=== PATIENT | male | born 1945 | race Caucasian/White ===

== ENCOUNTER → 2017-01-12 | Outpatient (CLI) | payer BC ==
[~2017-01-12] MED LIST: ACET-1138 PO; ASPEC81 PO; BUME2TAB3 PO; CARV12.52 PO; CLB200 PO; METO2.5T PO; MULT-506 PO; OXYSR10 PO; POTA20TA16 PO; PRLSR20 PO; PROB1TAB16 PO; RXC5 PO; SNK PO; SPIR25TA PO
[2017-01-12 12:43] LABS: BASO % 0.5 %; BASO ABS # 0.04 K/uL (0-0.2); COMPLETE YES; EOS % 6.2 %; HEMATOCRIT 35.9 % (42-52); IG% 0.2 %; LYMPH % 29.1 %; LYMPH ABS # 2.52 K/uL (1.2-3.4); MEAN CELL VOLUME 78.4 fL (80-100); MEAN CORPUSCULAR HEMOGLOBIN 23.1 pg (25-34); MEAN CORPUSCULAR HGB CONC 29.5 g/dl (32-36); MEAN PLATELET VOLUME 9.9 fL (7.4-10.4); MONO % 12.5 %; NEUT % 51.5 %; PLATELET COUNT 310 K/uL (130-400); RED BLOOD COUNT 4.58 M/uL (4.7-6.1); WHITE BLOOD COUNT 8.67 K/uL (4.8-10.8)
[2017-01-12 13:06] LABS: FERRITIN 6.9 ng/ml (8.0-388.0)
--- NOTE | 2017-01-16 13:51 | CODING QUERY MEDICAL NECESSITY ---
SUPPORTING DIAGNOSIS NEEDED A supporting diagnosis is required for the test/procedure performed on this patient in order for us to be reimbursed by the patient's insurance. Please provide a supporting diagnosis for the following test/procedure listed below next to the test name along with your signature. *If there is no additional diagnosis for this patient that would support the following test/procedure please document that below next to the test/procedure. Test(s)/Procedure(s) that require a supporting diagnosis: * VIT B-12 LEVEL DIAGNOSIS: * FOLATE LEVEL DIAGNOSIS: * DOS: 01/12/17 Provider Signature: Date: Thank you Elda Mckoy [facility] Information Management Once completed, please kindly fax back to [phone] For questions please call [phone]
== END | disposition home or self-care (01) ==
LOC: C.LABSPEC 12:17
PROVIDERS: ATTEND Internal Medicine
DX: D50.9 Iron deficiency anemia, unspecified (principal)

== ENCOUNTER → 2017-01-17 | Outpatient (CLI) | payer BC ==
[~2017-01-17] MED LIST changes: +BENZ100C7 PO; +BMX1 PO; +BUME1TAB PO; +DEXT30TA7 PO; +FERR324T PO; +FLUO20CA36 PO; +GUAISYP8 PO; +LPT/20 PO; +LVQ750 PO; +PRED5PAK3 PO; +SYMIN INH
== END | disposition home or self-care (01) ==
LOC: C.LABSPEC 15:03
PROVIDERS: ATTEND Internal Medicine
DX: Z12.11 Encounter for screening for malignant neoplasm of colon (principal)

== ENCOUNTER → 2017-02-23 | Outpatient (CLI) | payer BC ==
--- NOTE | 2017-02-23 15:19 | DIAGNOSTIC IMAGING REPORT ---
CHEST 2 VIEWS ROUTINE CLINICAL HISTORY: COUGH dyspnea COMPARISON STUDY: 01/07/2016 FINDINGS: The bones soft tissues and hemidiaphragms are normal. The cardiomediastinal silhouette is normal. The lungs are clear. The pulmonary vasculature is normal. IMPRESSION: Negative chest. Electronically signed by: Russell Tsai M.D. 02/23/2017 3:18 PM Dictated Date/Time: 02/23/2017 3:17 PM
== END | disposition home or self-care (01) ==
LOC: C.RAD 15:01
PROVIDERS: ATTEND Internal Medicine
DX: J40 Bronchitis, not specified as acute or chronic (principal)

== ENCOUNTER → 2017-03-01 | Outpatient (CLI) | payer BC ==
[2017-03-01 13:33] LABS: HEMATOCRIT 44.4 % (42-52); MEAN CELL VOLUME 87.7 fL (80-100); MEAN CORPUSCULAR HEMOGLOBIN 26.3 pg (25-34); MEAN PLATELET VOLUME 10.4 fL (7.4-10.4); PLATELET COUNT 270 K/uL (130-400); RED BLOOD COUNT 5.06 M/uL (4.7-6.1); WHITE BLOOD COUNT 9.06 K/uL (4.8-10.8)
== END | disposition home or self-care (01) ==
LOC: C.LABSPEC 12:24
PROVIDERS: ATTEND Internal Medicine
DX: D64.9 Anemia, unspecified (principal)

== ENCOUNTER → 2017-05-31 | Outpatient (CLI) | payer BC ==
[~2017-05-31] MED LIST changes: -BENZ100C7 PO; -BMX1 PO; -BUME1TAB PO; -DEXT30TA7 PO; -FERR324T PO; -FLUO20CA36 PO; -GUAISYP8 PO; -LPT/20 PO; -LVQ750 PO; -PRED5PAK3 PO; -SYMIN INH
[2017-05-31 13:14] LABS: BASO % 0.6 %; BASO ABS # 0.05 K/uL (0-0.2); COMPLETE YES; EOS % 3.5 %; HEMATOCRIT 47.7 % (42-52); IG% 0.4 %; LYMPH % 30.8 %; LYMPH ABS # 2.63 K/uL (1.2-3.4); MEAN CELL VOLUME 92.4 fL (80-100); MEAN CORPUSCULAR HEMOGLOBIN 31.2 pg (25-34); MEAN CORPUSCULAR HGB CONC 33.8 g/dl (32-36); MONO % 10.6 %; NEUT % 54.1 %; PLATELET COUNT 245 K/uL (130-400); RED BLOOD COUNT 5.16 M/uL (4.7-6.1); WHITE BLOOD COUNT 8.53 K/uL (4.8-10.8)
[2017-05-31 13:26] LABS: ALT/SGPT 31 U/L (12-78); AST/SGOT 18 U/L (15-37); BLOOD UREA NITROGEN 19 mg/dl (7-18); BUN/CREATININE RATIO 11.9 (10-20); CALCIUM 10.3 mg/dl (8.5-10.1); CARBON DIOXIDE 31 mmol/L (21-32); CHLORIDE 104 mmol/L (98-107); CHOLESTEROL 259 mg/dl (0-200); GLUCOSE 117 mg/dl (70-99); POTASSIUM 4.1 mmol/L (3.5-5.1); SODIUM 139 mmol/L (136-145)
[2017-05-31 13:32] LABS: ALB/GLOB RATIO 0.9 (0.9-2); ALKALINE PHOSPHATASE 86 U/L (45-117); CHOLESTEROL/HDL RATIO 5.2; FERRITIN 29.8 ng/ml (8.0-388.0); HDL CHOLESTEROL 50 mg/dl; PROSTATE SPECIFIC ANTIGEN 0.988 ng/ml (0.000-4.000); TRIGLYCERIDES 241 mg/dl (0-150); VERY LOW DENSITY LIPOPROT CALC 48 mg/dl
[2017-05-31 13:46] LABS: ESTIMATED AVERAGE GLUCOSE 128 mg/dl; HA1C FLAG Normal (Normal)
--- NOTE | 2017-06-07 09:24 | CODING QUERY MEDICAL NECESSITY ---
SUPPORTING DIAGNOSIS NEEDED Dr. Shania Castro, A supporting diagnosis is required for the test/procedure performed on this patient in order for us to be reimbursed by the patient's insurance. Please provide a supporting diagnosis for the following test/procedure listed below next to the test name along with your signature. *If there is no additional diagnosis for this patient that would support the following test/procedure please document that below next to the test/procedure. Test(s)/Procedure(s) that require a supporting diagnosis: * [id number] PSA DIAGNOSIS: DATE OF SERVICE: 05/31/17 Provider Signature: Date: Thank you Kodi Schrader [facility] Information Management Once completed, please kindly fax back to [phone] For questions please call [phone]
== END | disposition home or self-care (01) ==
LOC: C.LABSPEC 12:10
PROVIDERS: ATTEND Internal Medicine
DX: R73.9 Hyperglycemia, unspecified (principal); I10 Essential (primary) hypertension; R78.5 Finding of other psychotropic drug in blood; D50.9 Iron deficiency anemia, unspecified; R30.0 Dysuria

== ENCOUNTER → 2017-07-19 | Outpatient (CLI) | payer BC ==
[2017-07-19 12:58] LABS: BASO % 0.5 %; BASO ABS # 0.05 K/uL (0-0.2); COMPLETE YES; EOS % 4.7 %; HEMATOCRIT 46.2 % (42-52); IG% 0.2 %; LYMPH % 31.7 %; LYMPH ABS # 2.89 K/uL (1.2-3.4); MEAN CORPUSCULAR HEMOGLOBIN 30.2 pg (25-34); MEAN CORPUSCULAR HGB CONC 32.5 g/dl (32-36); MONO % 11.6 %; NEUT % 51.3 %; PLATELET COUNT 226 K/uL (130-400); RED BLOOD COUNT 4.97 M/uL (4.7-6.1); WHITE BLOOD COUNT 9.12 K/uL (4.8-10.8)
[2017-07-19 13:13] LABS: ALT/SGPT 30 U/L (12-78); AST/SGOT 21 U/L (15-37); BLOOD UREA NITROGEN 12 mg/dl (7-18); BUN/CREATININE RATIO 10.3 (10-20); CALCIUM 10.1 mg/dl (8.5-10.1); CARBON DIOXIDE 27 mmol/L (21-32); CHLORIDE 104 mmol/L (98-107); CHOLESTEROL 142 mg/dl (0-200); GLUCOSE 106 mg/dl (70-99); POTASSIUM 4.6 mmol/L (3.5-5.1); SODIUM 138 mmol/L (136-145); TRIGLYCERIDES 149 mg/dl (0-150); VERY LOW DENSITY LIPOPROT CALC 30 mg/dl
[2017-07-19 13:16] LABS: ALKALINE PHOSPHATASE 81 U/L (45-117); CHOLESTEROL/HDL RATIO 2.5; HDL CHOLESTEROL 56 mg/dl
== END ==
LOC: C.LABSPEC 12:27
PROVIDERS: ATTEND Internal Medicine
DX: D64.9 Anemia, unspecified (principal); E78.5 Hyperlipidemia, unspecified; R73.9 Hyperglycemia, unspecified; I10 Essential (primary) hypertension

== ENCOUNTER 2017-08-23 15:16 | Inpatient (IN) | payer BC, OTHER ==
[~2017-08-23] VITALS: Ht 177.8 cm; Wt 130.9 kg
[2017-08-23] MEDS ORDERED: ALBUT/IPRATROP 3MG/0.5MG NEB 3 ML VIAL INH STA ×2 (15:36→17:04)
[2017-08-23] MEDS ORDERED: LACTATED RINGER'S 1000ML 1,000 ML IV ONE (15:45)
[2017-08-23] MEDS ORDERED: DEXT30TA7 PO (16:03)
[2017-08-23] MEDS ORDERED: BMX1 PO (16:03)
[2017-08-23] MEDS ORDERED: FERR324T PO (16:03)
[2017-08-23] MEDS ORDERED: BUME1TAB PO (16:03)
[2017-08-23] MEDS ORDERED: LPT/20 PO (16:03)
[2017-08-23] MEDS ORDERED: FLUO20CA36 PO (16:03)
[2017-08-23 16:14] LABS: URINE APPEARANCE CLEAR (CLEAR); URINE BILIRUBIN NEG (NEG); URINE COLOR DK YELLOW; URINE NITRITE NEG (NEG); URINE SPECIFIC GRAVITY 1.021 (1.000-1.030); UROBILINOGEN NEG (NEG)
[2017-08-23] MEDS ORDERED: GUAISYP8 PO (16:14)
--- NOTE | 2017-08-23 16:17 | DIAGNOSTIC IMAGING REPORT ---
CHEST ONE VIEW PORTABLE HISTORY: 72 years-old Male EVALUATE RESPIRATORY DISTRESS.DYSPNEA acute respiratory distress COMPARISON: Chest radiograph 02/23/2017 TECHNIQUE: Portable upright AP view of the chest FINDINGS: Cardiac silhouette is mildly enlarged, unchanged. Atherosclerosis of the aorta. No pneumothorax or pleural effusion. Subsegmental left basilar opacities are noted which appear linear. Bones are grossly intact. There are degenerative changes of the shoulders. IMPRESSION: Subsegmental left basilar opacities suggest atelectasis. No acute cardiopulmonary process. The above report was generated using voice recognition software. It may contain grammatical, syntax or spelling errors. Electronically signed by: Rigo Ritchie M.D. 08/23/2017 4:15 PM Dictated Date/Time: 08/23/2017 4:14 PM
[2017-08-23 16:25] LABS: MANUAL MICROSCOPIC REQUIRED? NO; REVIEW REQ? YES
[2017-08-23 16:39] LABS: URINE MUCUS PRESENT (NONE PRSENT)
[2017-08-23 16:42] LABS: BASO % 0.2 %; BASO ABS # 0.03 K/uL (0-0.2); COMPLETE YES; EOS % 1.7 %; IG% 0.5 %; LYMPH % 16.9 %; LYMPH ABS # 2.52 K/uL (1.2-3.4); MEAN CELL VOLUME 93.6 fL (80-100); MEAN CORPUSCULAR HEMOGLOBIN 30.6 pg (25-34); MEAN CORPUSCULAR HGB CONC 32.7 g/dl (32-36); MEAN PLATELET VOLUME 10.2 fL (7.4-10.4); MONO % 19.1 %; NEUT % 61.6 %; PLATELET COUNT 195 K/uL (130-400); RED BLOOD COUNT 4.38 M/uL (4.7-6.1); WHITE BLOOD COUNT 14.91 K/uL (4.8-10.8)
[2017-08-23 17:04] LABS: ALT/SGPT 25 U/L (12-78); BLOOD UREA NITROGEN 27 mg/dl (7-18); BUN/CREATININE RATIO 16.1 (10-20); CALCIUM 9.8 mg/dl (8.5-10.1); CARBON DIOXIDE 28 mmol/L (21-32); CHLORIDE 100 mmol/L (98-107); GLUCOSE 97 mg/dl (70-99); POTASSIUM 4.5 mmol/L (3.5-5.1); SODIUM 135 mmol/L (136-145)
[2017-08-23 17:10] LABS: ALB/GLOB RATIO 0.7 (0.9-2); ALKALINE PHOSPHATASE 87 U/L (45-117); AST/SGOT 19 U/L (15-37)
[2017-08-23] MEDS ORDERED: METHYLPREDNISOLONE 125 MG VIAL IV STA (17:16)
[2017-08-23] MEDS ORDERED: LEVAQUIN 750MG / 150ML D5W IV ONE (18:45)
--- NOTE | 2017-08-23 19:28 | EMERGENCY ROOM VISIT NOTE ---
ED Visit Note First contact with patient: 15:30 Patient seen and examined at bedside. Case discussed with physician graduate research assistant. Patient to be admitted by family doctor. Patient stable here, vital signs stable. Patient aware of all results was agreeable with plan.
[2017-08-23] MEDS ORDERED: LORAZEPAM 0.5 MG TAB PO PRN (19:30)
[2017-08-23] MEDS ORDERED: ACETAMINOPHEN 500 MG TAB PO PRN (19:30)
[2017-08-23] MEDS ORDERED: ACETAMINOPHEN 325 MG TAB PO PRN (19:30)
[2017-08-23] MEDS: LEVALBUTEROL 1.25MG/3ML NEB INH SCH ×2 (20:00→23:20)
[2017-08-23] MEDS ORDERED: HYDROCODONE/HOMATROPINE SYRUP 5MG/1.5MG 5ML UDP PO STA (20:27)
[2017-08-23 20:29] VITALS: Ht 177.8 cm; Wt 130.9 kg
[2017-08-23 21:05] LABS: INR 1.1 (0.9-1.1); PARTIAL THROMBOPLASTIN RATIO 1.2; PROTHROMBIN TIME (PATIENT) 11.4 SECONDS (9.0-12.0)
[2017-08-23 21:10] VITALS: PULSE 73; O2SAT 91
[2017-08-23 21:55] VITALS: BP 135/75; PULSE 90; TEMP 37; O2SAT 89
[2017-08-23 23:12] VITALS: O2SAT 94
[2017-08-23 23:20] VITALS: PULSE 89; O2SAT 95
[2017-08-23] MEDS: ASPIRIN 81 MG ECTAB PO SCH (23:20)
[2017-08-23] MEDS: POTASSIUM CHLORIDE 20 MEQ TABCR PO SCH (23:21)
[2017-08-23] MEDS: FLUOXETINE HCL 20 MG CAP PO SCH (23:21)
[2017-08-23] MEDS: CARVEDILOL 12.5 MG TAB PO SCH (23:21)
[2017-08-23] MEDS: HEPARIN SOD 5000 UNIT/0.5 ML CARP SQ SCH (23:23)
[2017-08-23] MEDS: METHYLPREDNISOLONE IV 40 MG in SYRINGE 0 ML IV SCH (23:55)
[2017-08-23 23:58] VITALS: BP 137/80; PULSE 84; TEMP 36.9; O2SAT 92
[2017-08-24] VITALS (10 sets, daily range): BP systolic 126–152; BP diastolic 70–87; PULSE 78–102; TEMP 36.5–37.1; O2SAT 90–94
--- NOTE | 2017-08-24 00:26 | EMERGENCY ROOM VISIT NOTE ---
ED Visit Note First contact with patient: 15:30 Chief Complaint: Cough. History of Present Illness: Mr. Frnak is a 72-year-old male who is brought into the ED accompanied by his complaining of a cough. Historically patient has a history of DVT from 2012, congestive heart failure, COPD, pneumonia. Patient reports he has been having a nonproductive cough for the last month. He reports the cough has been constant. He has not identified any aggravating or alleviating factors related to the cough. 3 days ago he was seen by his PCP and he was placed on a codeine based cough syrup and before that he was not taken any cough medicine. Patient reports his cough exacerbated 3 days ago when he was seen by his PCP. Additionally he reported after the cough exacerbated he is also having some chest tightness. This discomfort is located over most of the entire aspect of the anterior chest. This discomfort is non-radiating. This tightness worsens with cough and deep inspiration. He reports his tightness decreases when he has not coughing or taking a deep breath. He has not actually taking any medication except for his cough medicine for this discomfort. He denies any associated fevers, chills, sweats, skin eruptions, skin color changes, sinus pressure, ear pressure, dizziness, lightheadedness, headache, neck pain/stiffness, palpitations, orthopnea, dependent edema, claudication, recent surgery/inactivity/extended travel, abdominal pain, posttussive vomiting , nausea. Review of Systems: As noted above in history of present illness. All body systems were reviewed and found to be negative as noted above. Past Medical History: As previously noted, gastric reflux, hypertension. Current Medications: Medications Dose Route/Sig Max Daily Dose Days Date Category Dose Instructions Guaiatussin Ac (Guaifenesin-Codeine) 1 Syp Syp 10 Ml PO Q4 PRN 08/23/17 Reported Mucinex Dm (Dextromethorphan-Guaifenesin) 1 Tab Tab 1 Tab PO Q12 10 08/23/17 Reported Iron Supplement (Ferrous Gluconate) 324 Mg Tab 324 Mg PO TID 08/23/17 Reported Atorvastatin Calcium (Atorvastatin) 20 Mg Tab 20 Mg PO DAILY 08/23/17 Reported Fluoxetine HCl 20 Mg Cap 20 Mg PO BID 08/23/17 Reported Bumex (Bumetanide) 1 Mg Tab 1 Mg PO DAILY PRN 08/23/17 Reported may take one additional tablet if needed for swelling Bumetanide 1 Mg Tab 3 Tab PO DAILY 08/23/17 Reported Celebrex (Celecoxib) 200 Mg Cap 200 Mg PO BID 02/02/16 Rx Tylenol Extra Strength (Acetaminophen) 500 Mg Tab 1,000 Mg PO Q8H 21 02/02/16 Rx Aspirin EC Low Dose (Aspirin) 81 Mg Ectab 81 Mg PO BID 30 02/02/16 Rx Coreg (Carvedilol) 12.5 Mg Tab 12.5 Mg PO BID 01/07/16 Reported Zaroxolyn (Metolazone) 2.5 Mg Tab 2.5 Mg PO PRN 12/30/13 Reported Klor-Con (Potassium Chloride) 20 Meq Tabcr 20 Meq PO PRN 12/30/13 Reported Aldactone (Spironolactone) 25 Mg Tab 25 Mg PO QAM 08/25/11 Reported Prilosec (Omeprazole) 20 Mg Capcr 20 Mg PO QAM 06/30/09 Reported Allergies to Medications: Iodinated diagnostic agents. Social History: Patient is not employed; he feels safe in his home environment; he stopped tobacco use in 1977. He denies alcohol use. Physical Examination: Vital Signs: Date Time Temp Pulse Resp B/P (MAP) Pulse Ox O2 Delivery O2 Flow Rate FiO2 08/23/17 16:45 90 22 110/77 99 Nasal Cannula 4.0 08/23/17 15:36 93 Room Air 08/23/17 15:21 36.9 88 22 129/73 91 Room Air GENERAL: 72-year-old male in moderate distress due to pain, nontoxic-appearing, afebrile and hemodynamically stable. NEUROLOGICAL: Awake, alert and oriented to person, place and time. Answering questions appropriately and following commands. Normal gait. Good hand eye coordination. No focal motor sensory deficits. SKIN: Warm, dry and pink. No soft tissue eruptions or trauma noted. HEENT: Atraumatic and normocephalic. PERRLA. Sclera white and conjunctiva pink. No drainage from naris. Oral cavity moist and pink. Pharynx is nonerythematous or edematous. Speech normal. No lymphadenopathy. Trachea midline. No jugular venous distention. BACK: No tenderness over the bony spine. No CVA tenderness. THORAX: Lungs sounds are decreased in all eagle with inspiratory neck but tore wheezing. Equal bilaterally with symmetrical chest wall. Increased respiratory effort. No rales or rhonchi. No crepitus, tenderness, subcutaneous air or deformities noted. HEART: Regular rate and rhythm. No gallops, rubs or murmurs are appreciated. PMI is not displaced. No lifts, heaves or thrills. ABDOMEN: Obese, soft and nontender. Positive bowel sounds in all quadrants. No guarding, rigidity or organomegaly. EXTREMITIES: Moves all extremities well on command and with purpose. All distal neurovascular statuses are intact and equal bilaterally. No calf tenderness or cords. ED Course: Patient is assessed as noted above. Patient's medication list was reviewed. Laboratory Testing: Test 08/23/17 15:53 08/23/17 16:29 Range/Units Urine Color DK YELLOW Urine Appearance CLEAR CLEAR Urine pH 5.0 4.5-7.5 Urine Specific [place] 1.021 1.000-1.030 Urine Protein TRACE NEG Urine Glucose (UA) NEG NEG Urine Ketones NEG NEG Urine Occult Blood NEG NEG Urine Nitrite NEG NEG Urine Bilirubin NEG NEG Urine Urobilinogen NEG NEG Urine Leukocyte Esterase NEG NEG Urine WBC (Auto) 1-5 0-5 /hpf Urine RBC (Auto) 0-4 0-4 /hpf Urine Hyaline Casts (Auto) 10-30 0-5 /lpf Urine Epithelial Cells (Auto) 5-10 0-5 /lpf Urine Bacteria (Auto) NEG NEG Urine Pathogenic Casts 0 /lpf Urine Mucus PRESENT NONE PRSENT White Blood Count 14.91 4.8-10.8 K/uL Red Blood Count 4.38 4.7-6.1 M/uL Hemoglobin 13.4 14.0-18.0 g/dL Hematocrit 41.0 42-52 % Mean Corpuscular Volume 93.6 80-100 fL Mean Corpuscular Hemoglobin 30.6 25-34 pg Mean Corpuscular Hemoglobin Concent 32.7 32-36 g/dl Platelet Count 195 130-400 K/uL Mean Platelet Volume 10.2 7.4-10.4 fL Neutrophils (%) (Auto) 61.6 % Lymphocytes (%) (Auto) 16.9 % Monocytes (%) (Auto) 19.1 % Eosinophils (%) (Auto) 1.7 % Basophils (%) (Auto) 0.2 % Neutrophils # (Auto) 9.18 1.4-6.5 K/uL Lymphocytes # (Auto) 2.52 1.2-3.4 K/uL Monocytes # (Auto) 2.85 0.11-0.59 K/uL Eosinophils # (Auto) 0.25 0-0.5 K/uL Basophils # (Auto) 0.03 0-0.2 K/uL RDW Standard Deviation 46.1 36.4-46.3 fL RDW Coefficient of Variation 13.2 11.5-14.5 % Immature Granulocyte % (Auto) 0.5 % Immature Granulocyte # (Auto) 0.08 0.00-0.02 K/uL Prothrombin Time 11.4 9.0-12.0 SECONDS Prothromb Time International Ratio 1.1 0.9-1.1 Activated Partial Thromboplast Time 30.1 21.0-31.0 SECONDS Partial Thromboplastin Ratio 1.2 D-Dimer 520 0-500 ug/L FEU Sodium Level 135 136-145 mmol/L Potassium Level 4.5 3.5-5.1 mmol/L Chloride Level 100 98-107 mmol/L Carbon Dioxide Level 28 21-32 mmol/L Anion Gap 7.0 3-11 mmol/L Blood Urea Nitrogen 27 7-18 mg/dl Creatinine 1.70 0.60-1.40 mg/dl Est Creatinine Clear Calc Drug Dose 55.0 ml/min Estimated GFR () 46.3 Estimated GFR (Non- 40.0 BUN/Creatinine Ratio 16.1 10-20 Random Glucose 97 70-99 mg/dl Calcium Level 9.8 8.5-10.1 mg/dl Total Bilirubin 0.6 0.2-1 mg/dl Aspartate Amino Transf (AST/SGOT) 19 15-37 U/L Alanine Aminotransferase (ALT/SGPT) 25 12-78 U/L Alkaline Phosphatase 87 45-117 U/L Troponin I < 0.015 0-0.045 ng/ml Pro-B-Type Natriuretic Peptide 306 0-900 pg/ml Total Protein 7.8 6.4-8.2 gm/dl Albumin 3.1 3.4-5.0 gm/dl Globulin 4.7 2.5-4.0 gm/dl Albumin/Globulin Ratio 0.7 0.9-2 Thyroid Stimulating Hormone (TSH) 2.000 0.300-4.500 uIu/ml Thyroxine (T4) 6.8 4.5-10.9 mcg/dl Hepatitis C Antibody Screen NEG NEG Blood Culture: Pending EKG: Was read by myself and shows normal sinus rhythm with a ventricular rate of 85 bpm. Normal axis, intervals and complexes. No acute ST changes indicating ischemia, injury or infarction. This was compared to a previous from January 2014 and no changes were noted. Chest X-Rays: Were read by myself and the radiologist showing subsegmental left basilar [place] sees suggestive of atelectasis. No acute cardiopulmonary process noted. Patient was hydrated with normal saline, he was given 2 albuterol/Atrovent nebulizer breathing treatments and 125 mg of Solu-Medrol. After each albuterol/Atrovent nebulizer breathing treatment patient's lungs were reassessed and each time he showed marked improvement of his waning and increased respiratory effort. Also after his first breathing treatment when I was reevaluating the patient he had a oxygen saturations that decreased to 86% on room air and was then placed on nasal cannula oxygen. Patient's case was reviewed with Dr. Hi; we agreed on diagnostic approach , treatment, disposition and plan. Patient's case was consulted with case management and Dr. Shania Castro, primary care provider, for medical observation/admission. Patient was educated about today's findings. Clinical Impression: Acute bronchitis. Hypoxemia. Decision-Making: Initially my differential diagnosis I considered pneumonia, pulmonary embolism, bronchitis, acute coronary syndrome, thoracic aneurysm, pneumothorax and other causes. Disposition and Plan: Patient is to be brought into the hospital by Dr.Aboul Castro; please see his notes and orders for final disposition and plan.
--- NOTE | 2017-08-24 00:44 | History and Physical ---
History & Physical Date of Service Aug 24, 2017. History & Physical ADMISSION DATE: 08/23/2017 CHIEF COMPLAINT: 72-year-old male admitted through the emergency room with severe cough and dyspnea. He also has elevated d-dimer. PRESENT ILLNESS: patient with multiple medical problems including restrictive cardiomyopathy, arterial hypertension, sleep apnea, obesity, hypercholesterolemia, depression. Patient has been complaining of persistent cough. He denied any associated fever or chills. No sore throat. No earache. His cough has been severe. Persistent. Not producing any sputum. No hemoptysis. No nausea or vomiting or diarrhea. He did call the office a few days ago. He was given Cheratussin for cough. There was no indication for any antibiotic treatment. His cough persisted. He has repeated coughing fit. He becomes short of breath. He did come to the emergency room. He had multiple tests done. He was started on multiple medications including Levaquin, Solu-Medrol, high flow treatments. His d-dimer was elevated. Patient has allergy to IV contrast. Also his creatinine was elevated to 1.7. CT scan of the chest was not done. I saw the patient in the emergency room. He was admitted for further evaluation and treatment. PAST MEDICAL HISTORY: * right total knee arthroplasty on 02/02/2017 * Surgery for right rotator cuff tear in December of 2013 * Restrictive cardiomyopathy. Diagnosed in 1987. He presented with fluid retention. His cardiac catheterization was done. Diagnosis was established. * Laparoscopic cholecystectomy many years ago * Subsequent to his that was copied cholecystectomy he developed an incisional hernia in the epigastric and umbilical area. He underwent repair in 2009. * Chronic back pain long-standing. * Fracture of the left forearm at age 14. * Arterial hypertension. Long-standing. She did for about 15 years * Hyperlipidemia. 3. For about the same time * Medial and lateral meniscal tear of the right knee requiring surgery in 2008 * Left total knee arthroplasty in September of 2011 * Sleep apnea diagnosed in 2012 SOCIAL HISTORY: he is . Has 3 children. No smoking. He stopped around 1974. He stopped drinking alcohol in 1987. No drug use. No excessive coffee or tea or soft drinks. He works at the [employer] in the [employer]. He is retired. 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 FAMILY HISTORY: His mother had dementia. His father was killed in an accident while cutting teeth. He had 2 sisters. One sister had breast cancer. One son was born with congenital scoliosis cleft palate and other neck deformities ALLERGIES: IV contrast CURRENT MEDICATIONS: as noted on his home medication list REVIEW OF SYSTEMS: he denied any headache. No dizziness no lightheadedness. No recent change in his vision. No earache or sore throat. No neck pain. He does complain of some chest pressure with his cough. Severe cough. No sputum no hemoptysis. No abdominal pain no nausea no vomiting. No problem with his bowel movements. No problem urinating. Chronic low back pain. Recurrent leg edema. PHYSICAL EXAMINATION: GENERAL : Well developed. Well nourished. No acute distress.recorded weight 130.9 kg, height 177.8 cm, BMI 41.4. VITAL SIGNS : Blood Pressure : 129/73, pulse 88, respiration 22, temperature 36.9, oxygen saturation 91% on room air SKIN : Warm and dry. No rash. HEENT :No evidence of any mucosal abnormalities. Ears were normal. NECK : Supple. No adenopathy. No thyromegaly. No JVD. Normal carotid pulses. No carotid bruit. CHEST : Normal HEART: Regular heart sounds without any murmur rub or gallop. PMI not displaced. LUNGS: bilateral diffuse wheezing ABDOMEN: Soft nontender. No organomegaly or masses. Good bowel sounds.Surgical scars. Markedly obese. BACK: No spine or CVA tenderness. EXTREMITIES : 1+ edema. No clubbing no cyanosis. Surgical scars. Good pulses. NEUROLOGICAL EXAMINATION: He is alert and oriented. No evidence of any deficits. LABORATORY TEST; WBC count 14,910, hemoglobin 13.4, hematocrit 41%, platelet count one 95,000. Prothrombin time 11.4, INR 1.1, PTT 30.1, d-dimer 528. Sodium 135, potassium 4.5, chloride 100, CO2 28, BUN 27, creatinine 1.7, glucose 97, calcium 9.8, total bilirubin 0.6, AST 19, ALT 25, alkaline phosphatase 87, troponin I less than 0.015, pro BNP 306, total protein 7.8, albumin 3.1, globulin 4.7, TSH 2, T4 -6 0.8. Urinalysis showed no evidence of any infection. Hepatitis C screen was negative. Chest x-ray showed no infiltrates or congestive heart failure. Electrocardiogram showed a sinus rhythm. ASSESSMENT: * severe bronchitis with severe cough * Elevated d-dimer * Restrictive cardiomyopathy * Arterial hypertension * Hyperlipidemia * Morbid obesity * Sleep apnea PLAN: patient was admitted to a medical bed. Resuscitation status I. In the emergency room he was started on IV Levaquin. He received one dose of 750 mg IV. I will reorder his Levaquin tomorrow based on his renal function. He was continued on Solu-Medrol. 40 mg IV every 6 hours. Xopenex high flow treatments every 4 hours. Hycodan for cough. A VQ lung scan was ordered for tomorrow because of the elevated d-dimer. He was continued on his medications. His condition will be monitored. We'll see how he does with the treatments as ordered. We'll wait for the scan to be done tomorrow. DVT prophylaxis ordered.
[2017-08-24] MEDS: LEVALBUTEROL 1.25MG/3ML NEB INH SCH ×6 (03:50→23:21)
[2017-08-24] MEDS: METHYLPREDNISOLONE IV 40 MG in SYRINGE 0 ML IV SCH ×4 (05:35→23:52)
[2017-08-24 07:04] LABS: BASO % 0.1 %; BASO ABS # 0.01 K/uL (0-0.2); COMPLETE YES; HEMATOCRIT 40.4 % (42-52); IG% 0.3 %; LYMPH % 13.5 %; LYMPH ABS # 1.67 K/uL (1.2-3.4); MEAN CELL VOLUME 93.5 fL (80-100); MEAN CORPUSCULAR HEMOGLOBIN 30.1 pg (25-34); MEAN CORPUSCULAR HGB CONC 32.2 g/dl (32-36); MEAN PLATELET VOLUME 10.7 fL (7.4-10.4); MONO % 5.5 %; NEUT % 80.6 %; PLATELET COUNT 233 K/uL (130-400); RED BLOOD COUNT 4.32 M/uL (4.7-6.1); WHITE BLOOD COUNT 12.34 K/uL (4.8-10.8)
[2017-08-24 07:35] LABS: BUN/CREATININE RATIO 21.7 (10-20); CALCIUM 10.2 mg/dl (8.5-10.1); CREATININE 1.27 mg/dl (0.60-1.40); MAGNESIUM 2.6 mg/dl (1.8-2.4); POTASSIUM 4.6 mmol/L (3.5-5.1)
[2017-08-24] MEDS: BUMETANIDE 1 MG TAB PO SCH (08:19)
[2017-08-24] MEDS: CARVEDILOL 12.5 MG TAB PO SCH ×2 (08:19→19:29)
[2017-08-24] MEDS: FLUOXETINE HCL 20 MG CAP PO SCH ×2 (08:20→19:30)
[2017-08-24] MEDS: ASPIRIN 81 MG ECTAB PO SCH ×2 (08:20→19:29)
[2017-08-24] MEDS: ATORVASTATIN 20 MG TAB PO SCH (08:20)
[2017-08-24] MEDS: HEPARIN SOD 5000 UNIT/0.5 ML CARP SQ SCH ×2 (11:08→19:30)
--- NOTE | 2017-08-24 12:36 | DIAGNOSTIC IMAGING REPORT ---
LUNG IMAGING VQ CLINICAL HISTORY: Chest pain. Dyspnea. COMPARISON: None TECHNIQUE: For the ventilation portion of this exam, 30.2 mCi of DTPA was inhaled at 11:20 AM. Immediately following inhalation, imaging of the chest was carried out in the anterior, posterior, left lateral, right lateral, LPO, RPO, SLOVAK and PAULINO projections. For the perfusion portion of exam, 5.4 mCi of technetium 99m MAA was injected IV at 11:55 AM. Immediately following injection, imaging of the chest was carried out in the same projections. FINDINGS: Uniform perfusion throughout both right as well as left hemithoraces. No evidence for a significant perfusion defect. There is The aerosol component of the study shows uniform activity characteristics throughout. There is no evidence for significant ventilation/perfusion mismatch. IMPRESSION: Normal study The above report was generated using voice recognition software. It may contain grammatical, syntax or spelling errors. Electronically signed by: Russell Tsai M.D. 08/24/2017 12:35 PM Dictated Date/Time: 08/24/2017 12:33 PM
[2017-08-24] MEDS ORDERED: PANTOprazole SOD 40 MG TAB PO STA (17:26)
--- NOTE | 2017-08-24 17:59 | Progress Note ---
Progress Note Date of Service Aug 24, 2017. Progress Note 72-year-old male admitted with * Acute bronchitis with severe cough and shortness of breath * Elevated d-dimer * Restrictive cardiomyopathy * Sleep apnea * Obesity Patient was admitted. He was started on IV Solu-Medrol, IV Levaquin, high flow treatments with Xopenex. On admission his creatinine was elevated to 1.7. This morning he had a VQ scan. There was no evidence of any pulmonary emboli. Overall his condition has improved. Still feeling short of breath. Still coughing. Not producing any sputum. He is afebrile. No headache or dizziness or lightheadedness. No chest pain. No nausea no vomiting. Tolerating his diet. No pain in his back or extremities. EXAMINATION : GENERAL: Well-developed. Obese. VITAL SIGNS: 126/70, pulse 79, respiration 22, temperature 37.1, oxygen saturation 93% on room air SKIN: Warm and dry. No rash. HEENT: No mucosal abnormalities. NECK: No JVD. HEART: Regular heart sounds. LUNGS: Very minimal wheezing. Much improved since yesterday and this morning. ABDOMEN: Soft nontender. Obese. BACK: No spinal tenderness. EXTREMITIES: No edema clubbing or cyanosis LABORATORY TESTS : WBC count 12,340, hemoglobin 13, hematocrit 40.4, platelet count 233,000. Sodium 135, potassium 4.6, chloride 102, CO2 27, BUNs 28, creatinine 1.27, glucose 196, calcium 10.2, magnesium 2.6. As noted VQ scan was normal. ASSESSMENT : * Acute bronchitis * Restrictive cardiomyopathy * Sleep apnea * Elevated d-dimer with negative VQ scan * Acute renal insufficiency. Improved. PLAN : * Continuing the same medications * Ambulation * Continue monitoring his laboratory tests and his pulmonary status.
[2017-08-24] MEDS: LEVOFLOXACIN / D5W 750 MG in PREMIXED IN D5W 150 ML IV SCH (19:29)
[2017-08-24] MEDS: POTASSIUM CHLORIDE 20 MEQ TABCR PO SCH (19:29)
[2017-08-25] VITALS (10 sets, daily range): BP systolic 128–152; BP diastolic 72–88; PULSE 56–88; TEMP 36.4; O2SAT 94–96
[2017-08-25] MEDS: LEVALBUTEROL 1.25MG/3ML NEB INH SCH ×6 (03:14→23:33)
[2017-08-25] MEDS: METHYLPREDNISOLONE IV 40 MG in SYRINGE 0 ML IV SCH (05:04)
[2017-08-25 06:44] LABS: BASO % 0.1 %; BASO ABS # 0.01 K/uL (0-0.2); COMPLETE YES; HEMATOCRIT 40.6 % (42-52); IG% 0.9 %; LYMPH % 8.4 %; LYMPH ABS # 1.63 K/uL (1.2-3.4); MEAN CELL VOLUME 92.5 fL (80-100); MEAN CORPUSCULAR HEMOGLOBIN 30.3 pg (25-34); MEAN CORPUSCULAR HGB CONC 32.8 g/dl (32-36); MEAN PLATELET VOLUME 10.5 fL (7.4-10.4); MONO % 8.8 %; NEUT % 81.8 %; PLATELET COUNT 283 K/uL (130-400); RED BLOOD COUNT 4.39 M/uL (4.7-6.1)
[2017-08-25 07:13] LABS: BUN/CREATININE RATIO 22.4 (10-20); CALCIUM 9.9 mg/dl (8.5-10.1); CREATININE 1.44 mg/dl (0.60-1.40); POTASSIUM 4.2 mmol/L (3.5-5.1)
[2017-08-25] MEDS: FLUOXETINE HCL 20 MG CAP PO SCH ×2 (08:16→20:05)
[2017-08-25] MEDS: ASPIRIN 81 MG ECTAB PO SCH ×2 (08:17→20:05)
[2017-08-25] MEDS: BUMETANIDE 1 MG TAB PO SCH (08:17)
[2017-08-25] MEDS: ATORVASTATIN 20 MG TAB PO SCH (08:17)
[2017-08-25] MEDS: CARVEDILOL 12.5 MG TAB PO SCH ×2 (08:18→20:05)
[2017-08-25] MEDS: PANTOprazole SOD 40 MG TAB PO SCH (08:18)
--- NOTE | 2017-08-25 12:08 | Clinical Documentation Query ---
CLINICAL DOCUMENTATION QUERY QUERY 1 OF 2 72-year-old male admitted through the emergency room with severe cough and dyspnea. In your clinical opinion is this patient being managed for: ( ) Possible sepsis ( x ) Not Agree ( ) Other explanation of clinical findings (Please Explain) ( ) Unable to determine (Please Define) ( ) Need to Discuss The medical record reflects the following clinical findings, treatment, and risk factors. Clinical Indicators: WBC 14.91 trending up to 19.30, O2 saturation 89% on room air, respirations up to 24 Treatment: Levaquin IV, serial CBCs Risk Factors: Age, severe cough and dyspnea, obesity QUERY 2 OF 2 In your clinical opinion is this patient being managed for: ( ) Acute kidney failure, resolving ( x ) Not Agree ( ) Other explanation of clinical findings (Please Explain) ( ) Unable to determine (Please Define) ( ) Need to Discuss The medical record reflects the following clinical findings, treatment, and risk factors. Clinical Indicators:Creatinine 1.70 from baseline of 1.20, GFR 48.9 from baseline of 60.9 Treatment:Serial PRPs Risk Factors: Age, HTN, obesity, cardiomyopathy Please clarify and document your clinical opinion in the progress notes and discharge summary. Terms such as "probable", "suspected", "likely", "questionable", "possible", or "still to be ruled out" are acceptable. IF IN AGREEMENT, YOU MUST DOCUMENT ABOVE DIAGNOSTIC STATEMENT IN DAILY PROGRESS NOTES AND DISCHARGE SUMMARY. This document is not part of the patient's record. Thank You, Gale Scanlon RN [phone]
[2017-08-25] MEDS: HEPARIN SOD 5000 UNIT/0.5 ML CARP SQ SCH ×2 (13:18→21:53)
[2017-08-25] MEDS: METHYLPREDNISOLONE IV 20 MG in SYRINGE 0 ML IV SCH ×2 (13:28→17:44)
[2017-08-25] MEDS: HYDROCODONE/HOMATROPINE SYRUP 5MG/1.5MG 5ML UDP PO PRN ×2 (17:05→21:51)
--- NOTE | 2017-08-25 18:35 | Progress Note ---
Progress Note Date of Service Aug 25, 2017. Progress Note 72-year-old male admitted with * Acute bronchitis with severe cough and shortness of breath * Known restrictive cardiomyopathy * Sleep apnea * Obesity * Arterial hypertension Patient was admitted. Cultures were done. He was started on IV Levaquin, IV Solu-Medrol, high flow treatments with Xopenex. He was continued on his medications. He was given Hycodan for cough. His condition improved. Less dyspneic. He still has persistent cough but to a much lesser extent. Unable to produce any sputum. No hemoptysis. He has not had any fever or any chills or any other problems. He has been ambulating. So far his cultures have been negative. EXAMINATION : GENERAL: Well-developed. In no distress. Resting comfortably. VITAL SIGNS: Blood pressure 152/88, pulse 72, respiration 20, temperature 36.4, oxygen saturation 94% on room air. SKIN: Warm and dry. No rash. HEENT: No mucosal abnormalities. NECK: Supple. Nontender. No lymph node or thyroid enlargement. No JVD. HEART: Regular heart sounds. LUNGS: Minimal right sided wheezing much improved. ABDOMEN: Obese soft nontender. BACK: No spinal tenderness. EXTREMITIES: No edema clubbing or cyanosis. LABORATORY TESTS : WBC count 19,300. Hemoglobin 13.3, hematocrit 40.6, platelet count 283,000. Sodium 137, potassium 4.2, chloride 103, CO2 25, BUN/creatinine 32, creatinine 1.44, glucose 224, calcium 9.9 ASSESSMENT : * Acute bronchitis * Severe cough * Restrictive cardiomyopathy * Sleep apnea * Arterial hypertension * Hyperleukocytosis most likely related to his steroids * Rising BUN/creatinine was likely related to the steroids * Hyperglycemia also related to steroids PLAN : * Continuing the same medications * I did decrease his Solu-Medrol to 20 mg IV every 6 hours * As noted all his cultures are negative * We will monitor his blood sugar BUN/creatinine and his white cell count. * Encouraged to ambulate.
[2017-08-25] MEDS: POTASSIUM CHLORIDE 20 MEQ TABCR PO SCH (20:05)
[2017-08-25] MEDS: LEVOFLOXACIN / D5W 750 MG in PREMIXED IN D5W 150 ML IV SCH (20:06)
[2017-08-26] VITALS (14 sets, daily range): BP systolic 132–156; BP diastolic 81–96; PULSE 68–94; TEMP 36.4–37; O2SAT 93–95
[2017-08-26] MEDS: METHYLPREDNISOLONE IV 20 MG in SYRINGE 0 ML IV SCH ×5 (00:37→23:53)
[2017-08-26] MEDS: HYDROCODONE/HOMATROPINE SYRUP 5MG/1.5MG 5ML UDP PO PRN ×2 (01:41→05:39)
[2017-08-26] MEDS: LEVALBUTEROL 1.25MG/3ML NEB INH SCH ×6 (01:53→23:08)
[2017-08-26 06:17] LABS: BASO % 0.2 %; BASO ABS # 0.04 K/uL (0-0.2); COMPLETE YES; HEMATOCRIT 40.8 % (42-52); IG% 2.6 %; LYMPH % 11.4 %; LYMPH ABS # 2.37 K/uL (1.2-3.4); MEAN CELL VOLUME 91.9 fL (80-100); MEAN CORPUSCULAR HEMOGLOBIN 30.6 pg (25-34); MEAN CORPUSCULAR HGB CONC 33.3 g/dl (32-36); MEAN PLATELET VOLUME 10.1 fL (7.4-10.4); MONO % 10.9 %; NEUT % 74.9 %; PLATELET COUNT 297 K/uL (130-400); RED BLOOD COUNT 4.44 M/uL (4.7-6.1); WHITE BLOOD COUNT 20.72 K/uL (4.8-10.8)
[2017-08-26 06:48] LABS: BUN/CREATININE RATIO 24.2 (10-20); CALCIUM 9.5 mg/dl (8.5-10.1); CREATININE 1.31 mg/dl (0.60-1.40); POTASSIUM 4.4 mmol/L (3.5-5.1)
[2017-08-26] MEDS: PANTOprazole SOD 40 MG TAB PO SCH (08:20)
[2017-08-26] MEDS: ASPIRIN 81 MG ECTAB PO SCH ×2 (08:20→20:42)
[2017-08-26] MEDS: ATORVASTATIN 20 MG TAB PO SCH (08:20)
[2017-08-26] MEDS: CARVEDILOL 12.5 MG TAB PO SCH ×2 (08:20→20:42)
[2017-08-26] MEDS: FLUOXETINE HCL 20 MG CAP PO SCH ×2 (08:21→20:41)
[2017-08-26] MEDS: BUMETANIDE 1 MG TAB PO SCH (08:21)
--- NOTE | 2017-08-26 10:36 | Progress Note ---
Progress Note Date of Service Aug 26, 2017. Progress Note 72-year-old male admitted with acute bronchitis with severe uncontrollable cough. He does have restrictive cardiomyopathy, sleep apnea, obesity, arterial hypertension. Cultures were done. He was started on IV Solu-Medrol, IV Levaquin, Xopenex high flow treatment. His chest x-ray did not show any evidence of infiltrates. No evidence of any congestive heart failure clinically. The problem persist with his cough. Even though has improved. He denied any headache no dizziness no lightheadedness. He does complain some chest discomfort with the cough. No sputum no hemoptysis. No abdominal pain. No nausea no vomiting. No problem with his bowel movements. No problem urinating. No pain in his back or extremities. He is ambulating. EXAMINATION : GENERAL: Well-developed. Obese. No distress. VITAL SIGNS: Blood pressure 156/96, pulse 83, respiration 18, temperature 36.4, oxygen saturation 95% on room air. SKIN: Warm and dry. No rash. HEENT: No mucosal abnormalities. NECK: Supple. Nontender. No lymph node or thyroid enlargement. No JVD. HEART: Regular heart sounds. No evident murmur rub or gallop. LUNGS: Bilateral rhonchi and minimal wheezing. Both lung eagle. But much improved air exchange. ABDOMEN: Soft nontender. Obese. BACK: No spinal tenderness. EXTREMITIES: No edema clubbing or cyanosis LABORATORY TESTS : WBC count 20,720, hemoglobin 13.6, hematocrit 40.8, platelet count 296,000. Sodium 135, potassium 4.4, chloride 101, CO2 29, BUNs 32, creatinine 1.31, glucose 181, calcium 8.5. ASSESSMENT : * Severe acute bronchitis * Uncontrollable cough * Restrictive cardiomyopathy * Sleep apnea * Obesity * Hyperleukocytosis. Steroid-induced. * Hyperglycemia. Steroid-induced. PLAN : * I switch Hycodan to Robitussin-AC. It was prescribed to him as an outpatient and he thought it was more effective * Start him on Symbicort 2 puffs twice a day. The 160/4.5 dose * Continue his other medications * Encouraged to ambulate * Monitor his laboratory tests
[2017-08-26] MEDS: GUAIFENESIN/CODEINE 200MG/20MG 10ML UDC PO PRN ×3 (11:20→19:16)
[2017-08-26] MEDS: HEPARIN SOD 5000 UNIT/0.5 ML CARP SQ SCH ×2 (11:24→20:46)
[2017-08-26] MEDS: BENZONATATE 100MG CAP PO SCH ×2 (16:21→20:41)
[2017-08-26] MEDS: LEVOFLOXACIN / D5W 750 MG in PREMIXED IN D5W 150 ML IV SCH (20:39)
[2017-08-26] MEDS: BUDESONIDE/FORMOTEROL FUMARATE 160/4.5 60 PUFFS/INHALER INH SCH (20:41)
[2017-08-26] MEDS: POTASSIUM CHLORIDE 20 MEQ TABCR PO SCH (20:43)
[2017-08-27] VITALS: O2SAT 95
[2017-08-27] MEDS: LEVALBUTEROL 1.25MG/3ML NEB INH SCH ×2 (03:41→07:02)
[2017-08-27 03:43] VITALS: PULSE 76; O2SAT 96
[2017-08-27] MEDS: GUAIFENESIN/CODEINE 200MG/20MG 10ML UDC PO PRN ×2 (05:53→10:39)
[2017-08-27] MEDS: METHYLPREDNISOLONE IV 20 MG in SYRINGE 0 ML IV SCH (05:53)
[2017-08-27 06:22] LABS: HEMATOCRIT 43.3 % (42-52); MEAN CELL VOLUME 91.9 fL (80-100); MEAN CORPUSCULAR HEMOGLOBIN 30.4 pg (25-34); MEAN PLATELET VOLUME 9.9 fL (7.4-10.4); PLATELET COUNT 311 K/uL (130-400); RED BLOOD COUNT 4.71 M/uL (4.7-6.1); WHITE BLOOD COUNT 20.31 K/uL (4.8-10.8)
[2017-08-27 06:53] LABS: BUN/CREATININE RATIO 22.1 (10-20); CALCIUM 9.7 mg/dl (8.5-10.1); CREATININE 1.45 mg/dl (0.60-1.40); POTASSIUM 4.6 mmol/L (3.5-5.1)
[2017-08-27 07:02] VITALS: PULSE 83; O2SAT 95
[2017-08-27 07:15] LABS: BASO % 0.2 %; BASO ABS # 0.04 K/uL (0-0.2); COMPLETE YES; IG% 6.1 %; LYMPH % 11.7 %; LYMPH ABS # 2.37 K/uL (1.2-3.4); MONO % 13.8 %; NEUT % 68.2 %
[2017-08-27 07:45] VITALS: BP 149/89; PULSE 75; TEMP 36.6; O2SAT 93
[2017-08-27 08:00] VITALS: O2SAT 94
[2017-08-27] MEDS: PANTOprazole SOD 40 MG TAB PO SCH (08:09)
[2017-08-27] MEDS: CARVEDILOL 12.5 MG TAB PO SCH (08:09)
[2017-08-27] MEDS: BENZONATATE 100MG CAP PO SCH (08:10)
[2017-08-27] MEDS: BUMETANIDE 1 MG TAB PO SCH (08:10)
[2017-08-27] MEDS: FLUOXETINE HCL 20 MG CAP PO SCH (08:10)
[2017-08-27] MEDS: ASPIRIN 81 MG ECTAB PO SCH (08:11)
[2017-08-27] MEDS: ATORVASTATIN 20 MG TAB PO SCH (08:11)
[2017-08-27] MEDS: BUDESONIDE/FORMOTEROL FUMARATE 160/4.5 60 PUFFS/INHALER INH SCH (08:11)
[2017-08-27] MEDS ORDERED: LVQ750 PO (10:55)
[2017-08-27] MEDS ORDERED: BENZ100C7 PO (10:55)
[2017-08-27] MEDS ORDERED: GUAISYP8 PO (10:55)
[2017-08-27] MEDS ORDERED: SYMIN INH (10:55)
[2017-08-27] MEDS ORDERED: PRED5PAK3 PO (10:55)
--- NOTE | 2017-08-27 10:57 | Discharge Instructions ---
Discharge Instructions Date of Service Aug 27, 2017. Admission Reason for Admission: Acute Bronchitis Intractable cough Restrictive cardiomyopathy Sleep apnea Obesity Arterial hypertension Discharge Discharge Diagnosis / Problem: acute bronchitis. Intractable cough. Restrictive cardiomyopathy. Sleep a Discharge Goals Goal(s): Decrease discomfort, Improve function, Increase independence, Improve disease control Activity Recommendations Activity Limitations: resume your previous activity . Instructions / Follow-Up Instructions / Follow-Up DR PERES IN ONE WEEK Current Hospital Diet Patient's current hospital diet: AHA Diet (Heart Healthy) Discharge Diet Recommended Diet: AHA Diet (Heart Healthy) Pending Studies Studies pending at discharge: no Laboratory Results Hemoglobin A1c Test 07/19/17 10:30 Range/Units Estimated Average Glucose 120 mg/dl Hemoglobin A1c 5.8 H 4.5-5.6 % Lipid Panel Test 07/19/17 10:30 Range/Units Triglycerides Level 149 0-150 mg/dl Cholesterol Level 142 0-200 mg/dl HDL Cholesterol 56 mg/dl LDL Cholesterol Direct 78 mg/dl Cholesterol/HDL Ratio 2.5 LDL Cholesterol, Calculated mg/dl Medical Emergencies . Who to Call and When: Medical Emergencies: If at any time you feel your situation is an emergency, please call 911 immediately. . Non-Emergent Contact Non-Emergency issues call your: Primary Care Provider . . "Provider Documentation" section prepared by Pepe Peres. . VTE Core Measure Inpt VTE Proph given/why not?: Treatment not indicated
--- NOTE | 2017-08-27 11:12 | Progress Note ---
Progress Note Date of Service Aug 27, 2017. Progress Note 72-year-old male admitted with acute bronchitis and severe intractable cough. His medical problems also include restrictive cardiomyopathy , sleep apnea, arterial hypertension, obesity, hyperlipidemia. Patient has been treated with IV Levaquin, IV Solu-Medrol, Xopenex high flow treatments, Symbicort inhaler, 2 different medications for cough including Robitussin AC and Tessalon. His condition has improved. He does have persistent cough. Not tested at as it will cause. But still persistent. No sputum no hemoptysis. No fever or chills or any other associated symptoms. He has been ambulating and tolerating that. Denied any chest pain. No nausea no vomiting. He is tolerating his diet very well. No problem with his bowel movements or urination. EXAMINATION : GENERAL: Well-developed. Obese. No distress. VITAL SIGNS: Blood pressure 149/89, pulse 75, respiration 18, temperature 36.6, oxygen saturation 93% on room air. SKIN: Warm and dry. No rash. HEENT: No mucosal abnormalities NECK: Supple. Nontender. No JVD. HEART: Regular heart sounds. LUNGS: Minimal wheezes ABDOMEN: Soft nontender. Obese. BACK: No spinal tenderness. EXTREMITIES: No edema LABORATORY TESTS : WBC count 20,310, hemoglobin 14.3, hematocrit 43.3, platelet count 311,000. Sodium 135, potassium 4.6, chloride 101, CO2 28, BUNs 32, creatinine 1.45, glucose 226, calcium 9.7. ASSESSMENT : * Acute bronchitis * Severe cough * Hyperleukocytosis secondary to steroids * Hyperglycemia secondary to steroids * Restrictive cardiomyopathy * Arterial hypertension * Sleep apnea PLAN : * His condition is stable. His cough persistent but this improving. * We will discharge home today. * I will repeat his CBC and PRP when I see him in the office one week after his discharge. * Discussed his activity. I asked him to avoid any excessive exertion. Try not to expose himself to cold weather.
[2017-08-27 11:16] VITALS: BP 149/89; PULSE 75; TEMP 36.6; O2SAT 94
[2017-08-27] MEDS ORDERED: LEValbuterol HFA 15GM INHALER INH SCH (12:00)
== END 2017-08-27 11:37 | disposition home or self-care (01) | DRG 202 ==
LOC: C.EDB 15:18 → C.4E 19:37 → ENRESERV 21:04
PROVIDERS: ADMIT Internal Medicine; ATTEND Internal Medicine
DX: J20.9 Acute bronchitis, unspecified (principal); I42.5 Other restrictive cardiomyopathy; N17.9 Acute kidney failure, unspecified; Z68.41 Body mass index [BMI] 40.0-44.9, adult; D72.829 Elevated white blood cell count, unspecified; R73.9 Hyperglycemia, unspecified; T49.0X5A Adverse effect of local antifungal, anti-infective and anti-inflammatory drugs, initial encounter; R79.1 Abnormal coagulation profile; I10 Essential (primary) hypertension; E78.5 Hyperlipidemia, unspecified; G47.30 Sleep apnea, unspecified; E66.01 Morbid (severe) obesity due to excess calories; F32.9 Major depressive disorder, single episode, unspecified; G89.29 Other chronic pain; M54.9 Dorsalgia, unspecified; Z79.1 Long term (current) use of non-steroidal anti-inflammatories (NSAID); Z79.82 Long term (current) use of aspirin; Z79.899 Other long term (current) drug therapy; Z91.041 Radiographic dye allergy status; Z81.8 Family history of other mental and behavioral disorders; Z80.3 Family history of malignant neoplasm of breast; Z82.79 Family history of other congenital malformations, deformations and chromosomal abnormalities

== ENCOUNTER 2017-10-24 18:36 | Inpatient (IN) | payer BC, OTHER ==
[~2017-10-24] VITALS: Ht 177.8 cm; Wt 131.4 kg
[~2017-10-24 18:36] MED LIST changes: +BENZ100C7 PO; +BMX1 PO; +BUME1TAB PO; -BUME2TAB3 PO; +FERR324T PO; +FLUO20CA36 PO; +GUAISYP8 PO; +LPT20 PO; +LVQ750 PO; -MULT-506 PO; -OXYSR10 PO; +PRED5PAK3 PO; -PROB1TAB16 PO; -RXC5 PO; -SNK PO; +SYMIN INH
[2017-10-24] MEDS ORDERED: FUROSEMIDE 40 MG/4 ML VIAL IV STA (18:59)
[2017-10-24] MEDS ORDERED: ASPIRIN 81 MG CHEW PO STA (18:59)
--- NOTE | 2017-10-24 19:03 | EMERGENCY ROOM VISIT NOTE ---
History Report prepared by Leonides: Johanne Alvarenga Under the Supervision of: Dr. Zahraa La M.D. First contact with patient: 18:49 Chief Complaint: RESPIRATORY PROBLEMS Stated Complaint: TROUBLE BREATHING, COUGH History of Present Illness The patient is a 72 year old male who presents to the Emergency Room with complaints of worsening shortness of breath beginning a couple months ago. The patient states he has been on a diet for the past six weeks and has still been gaining weight. He notes about a 15 pound weight gain over the past two months. The patient called Dr. Griffin's office who referred the patient to come into the ED. The patient states he has had to sit up to sleep over the past month. He notes abdominal bloating, mild chest pain, and swelling in his face and neck which begun a couple days ago. He also notes that he has had more difficulty swallowing his pills because of the swelling in his neck. The patient reports a cough beginning 6 months ago. He notes he was in the ED recently for his cough and he was given breathing treatments. The patient takes three Lasix a day. The patient has a history of CHF and restrictive cardiomyopathy. The patient took a baby aspirin today. Source of History: patient Onset: a couple months ago Position: other (generalized) Quality: other (shortness of breath) Timing: worsening Associated Symptoms: + cough, + chest pain, + SOB, + abdominal pain ( bloating) Review of Systems See HPI for pertinent positives & negatives. A total of 10 systems reviewed and were otherwise negative. Past Medical & Surgical Medical Problems: (1) Acute and chronic respiratory failure with hypoxia (2) ACUTE BRONCHITIS (3) Acute exacerbation of CHF (congestive heart failure) (4) GERD (gastroesophageal reflux disease) (5) Localized, primary osteoarthritis of the lower leg (6) Pneumonia (7) Restrictive cardiomyopathy (8) Sleep apnea Surgical Problems: (1) Post-operative state Family History FH: cancer FH: gallbladder disease FH: heart disease Hypertension Social History Smoking Status: Former Smoker Alcohol Use: none Marital Status: Housing Status: lives with family Occupation Status: retired Current/Historical Medications Scheduled Aspirin (Aspirin Ec), 81 MG PO DAILY Atorvastatin (Atorvastatin Calcium), 20 MG PO DAILY Bumetanide (Bumetanide), 3 TAB PO DAILY Carvedilol (Coreg), 12.5 MG PO BID Celecoxib (Celecoxib), 200 MG PO DAILY Ferrous Gluconate (Iron Supplement), 324 MG PO BID Fluoxetine HCl (Fluoxetine HCl), 20 MG PO BID Metolazone (Zaroxolyn), 2.5 MG PO prn Omeprazole (Prilosec), 20 MG PO QAM Potassium Ext Rel (Klor-Con), 20 MEQ PO prn Spironolactone (Aldactone), 25 MG PO QAM Scheduled PRN Budesonide/Formoterol Fumarate (Symbicort 160/4.5 Inhaler), 2 PUFF INH BID PRN for SOB/Wheezing Guaifenesin-Codeine (Guaiatussin Ac), 10 ML PO Q4 PRN for Cough Allergies Coded Allergies: Iodinated Diagnostic Agents (Verified Adverse Reaction, Mild, GI UPSET, ) Physical Exam Vital Signs Date Time Temp Pulse Resp B/P (MAP) Pulse Ox O2 Delivery O2 Flow Rate FiO2 10/24/17 20:39 93 142/76 95 Room Air 10/24/17 19:21 98 10/24/17 18:54 Nasal Cannula 2.0 99 10/24/17 18:41 36.9 98 20 157/79 97 Room Air Physical Exam Vital signs reviewed. General: Well-appearing obese male, in no significant distress. HEENT: No scleral icterus, PERRLA, neck supple. Atraumatic. Cardiovascular: Regular rate and rhythm, no extra sounds. Pulmonary: Rhonchorous breath sounds bilaterally, increased work of breathing. Abdomen: Obese and distended but soft. Positive bowel sounds Musculoskeletal: Atraumatic, 2+ pitting edema to bilateral lower extremities. Neurologic: Patient awake alert and oriented x 3 Skin: Warm, dry, no rash Medical Decision & Procedures ER Provider Diagnostic Interpretation: Radiology results as stated below per my review and radiologist interpretation: CHEST ONE VIEW PORTABLE FINDINGS: The heart is at the upper limits of normal in size. There is no failure. There is no focal pulmonary consolidation. There are no pleural effusions. Slightly prominent basilar markings are likely atelectatic. There is mild ectasia/tortuosity of the descending aorta.[ IMPRESSION: No active disease in the chest. Electronically signed by: Tre Cedillo M.D Laboratory Results 10/24/17 19:25 Red Blood Count 4.50, Mean Corpuscular Volume 94.2, Mean Corpuscular Hemoglobin 30.4, Mean Corpuscular Hemoglobin Concent 32.3, Mean Platelet Volume 10.0, Neutrophils (%) (Auto) 44.3, Lymphocytes (%) (Auto) 40.6, Monocytes (%) (Auto) 9.4, Eosinophils (%) (Auto) 4.7, Basophils (%) (Auto) 0.5, Neutrophils # (Auto) 3.77, Lymphocytes # (Auto) 3.45, Monocytes # (Auto) 0.80, Eosinophils # (Auto) 0.40, Basophils # (Auto) 0.04 Test 10/24/17 19:25 10/24/17 19:29 White Blood Count 8.50 K/uL (4.8-10.8) Red Blood Count 4.50 M/uL (4.7-6.1) Hemoglobin 13.7 g/dL (14.0-18.0) Hematocrit 42.4 % (42-52) Mean Corpuscular Volume 94.2 fL (80-100) Mean Corpuscular Hemoglobin 30.4 pg (25-34) Mean Corpuscular Hemoglobin Concent 32.3 g/dl (32-36) Platelet Count 206 K/uL (130-400) Mean Platelet Volume 10.0 fL (7.4-10.4) Neutrophils (%) (Auto) 44.3 % Lymphocytes (%) (Auto) 40.6 % Monocytes (%) (Auto) 9.4 % Eosinophils (%) (Auto) 4.7 % Basophils (%) (Auto) 0.5 % Neutrophils # (Auto) 3.77 K/uL (1.4-6.5) Lymphocytes # (Auto) 3.45 K/uL (1.2-3.4) Monocytes # (Auto) 0.80 K/uL (0.11-0.59) Eosinophils # (Auto) 0.40 K/uL (0-0.5) Basophils # (Auto) 0.04 K/uL (0-0.2) RDW Standard Deviation 49.0 fL (36.4-46.3) RDW Coefficient of Variation 14.4 % (11.5-14.5) Immature Granulocyte % (Auto) 0.5 % Immature Granulocyte # (Auto) 0.04 K/uL (0.00-0.02) Prothrombin Time 10.0 SECONDS (9.0-12.0) Prothromb Time International Ratio 1.0 (0.9-1.1) Activated Partial Thromboplast Time 24.4 SECONDS (21.0-31.0) Partial Thromboplastin Ratio 0.9 Estimated Average Glucose 157 mg/dl Hemoglobin A1c 7.1 % (4.5-5.6) Magnesium Level 1.8 mg/dl (1.8-2.4) Total Bilirubin 0.3 mg/dl (0.2-1) Direct Bilirubin < 0.1 mg/dl (0-0.2) Aspartate Amino Transf (AST/SGOT) 21 U/L (15-37) Alanine Aminotransferase (ALT/SGPT) 37 U/L (12-78) Alkaline Phosphatase 70 U/L (45-117) Total Creatine Kinase 169 U/L (39-308) Creatine Kinase MB 2.5 ng/ml (0.5-3.6) Creatine Kinase MB Ratio 1.5 (0-3.0) Pro-B-Type Natriuretic Peptide 75 pg/ml (0-900) Total Protein 6.8 gm/dl (6.4-8.2) Albumin 3.2 gm/dl (3.4-5.0) Bedside Troponin I < 0.030 ng/ml (0-0.045) Laboratory results per my review. Medications Administered Medications (Trade) Dose Ordered Sig/Andrew Route Start Time Stop Time Status Last Admin Dose Admin Furosemide (Lasix Inj) 40 mg NOW STAT IV 10/24/17 18:59 10/24/17 19:02 DC 10/24/17 19:39 40 MG Aspirin (Aspirin Chew) 243 mg NOW STAT PO 10/24/17 18:59 10/24/17 19:02 DC 10/24/17 19:39 243 MG Acetaminophen (Tylenol Tab) 650 mg Q4H PRN PO 10/24/17 22:00 11/23/17 21:59 10/25/17 22:15 650 MG ECG Indication: SOB/dyspnea Rate (beats per minute): 93 Rhythm: normal sinus Findings: no acute ischemic change, no ectopy ED Course 1852: Past medical records reviewed. The patient was evaluated in room B10. A complete history and physical examination was performed. 1858: Ordered Asirin 243 mg PO, Lasix 40 mg IV. 2037: I reviewed the patient's case with Dr. Boyd. He will evaluate the patient for further management. Medical Decision Differential diagnosis: Etiologies such as infections, reactive airway disease, pneumonia, pneumothorax , COPD, CHF, cardiac ischemia, pulmonary embolism, musculoskeletal, gastrointestinal, as well as others were entertained. This patient was evaluated and appeared to be in no significant distress. The patient does seem to be uncomfortable on exam however is in no respiratory distress. Chest x-ray was obtained and is difficult for cardiomegaly no acute pulmonary process. EKG reveals no evidence of acute ischemic change. Patient does have significant fluid overload on exam. He is given 40 mg of IV Lasix. Patient's records were reviewed. I suspect the patient is having an acute diastolic heart failure. The patient's case was discussed with the hospitalist service. The patient will be evaluated for admission and further management. Medication Reconcilliation Current Medication List: was personally reviewed by me Blood Pressure Screening Patient's blood pressure: Elevated blood pressure Blood pressure disposition: Referred to PCP (evaluated by hospitalist) Consults Time Called: 2031 Consulting Physician: Dr. Boyd Returned Call: 2036 I reviewed the patient's case with Dr. Boyd. He will evaluate the patient for further management. Impression Primary Impression: Acute exacerbation of CHF (congestive heart failure) Additional Impression: Restrictive cardiomyopathy Scribe Attestation The scribe's documentation has been prepared under my direction and personally reviewed by me in its entirety. I confirm that the note above accurately reflects all work, treatment, procedures, and medical decision making performed by me. Departure Information Dispostion Being Evaluated By Hospitalist Referrals Pepe Peterson M.D. (PCP) Patient Instructions My [facility] Problem Qualifiers
--- NOTE | 2017-10-24 19:35 | DIAGNOSTIC IMAGING REPORT ---
CHEST ONE VIEW PORTABLE CLINICAL HISTORY: Congestive failure COMPARISON STUDY: 08/23/2017 FINDINGS: The heart is at the upper limits of normal in size. There is no failure. There is no focal pulmonary consolidation. There are no pleural effusions. Slightly prominent basilar markings are likely atelectatic. There is mild ectasia/tortuosity of the descending aorta.[ IMPRESSION: No active disease in the chest. Electronically signed by: Tre Cedillo M.D. 10/24/2017 7:33 PM Dictated Date/Time: 10/24/2017 7:32 PM
[2017-10-24 19:42] LABS: BASO % 0.5 %; BASO ABS # 0.04 K/uL (0-0.2); EOS % 4.7 %; HEMATOCRIT 42.4 % (42-52); HEMOGLOBIN 13.7 g/dL (14.0-18.0); IG# 0.04 K/uL (0.00-0.02); LYMPH % 40.6 %; LYMPH ABS # 3.45 K/uL (1.2-3.4); MEAN CELL VOLUME 94.2 fL (80-100); MEAN CORPUSCULAR HEMOGLOBIN 30.4 pg (25-34); MEAN CORPUSCULAR HGB CONC 32.3 g/dl (32-36); MONO % 9.4 %; NEUT % 44.3 %; NEUT ABS # 3.77 K/uL (1.4-6.5); PLATELET COUNT 206 K/uL (130-400); RED CELL DISTRIBUTION WIDTH CV 14.4 % (11.5-14.5)
[2017-10-24 20:00] LABS: PTT PATIENT 24.4 SECONDS (21.0-31.0)
[2017-10-24 20:01] LABS: ALBUMIN 3.2 gm/dl (3.4-5.0); ALT/SGPT 37 U/L (12-78); AST/SGOT 21 U/L (15-37); BLOOD UREA NITROGEN 16 mg/dl (7-18); CALCIUM 9.5 mg/dl (8.5-10.1); CARBON DIOXIDE 31 mmol/L (21-32); GLUCOSE 127 mg/dl (70-99); POTASSIUM 3.9 mmol/L (3.5-5.1); SODIUM 139 mmol/L (136-145)
[2017-10-24 20:07] LABS: ALKALINE PHOSPHATASE 70 U/L (45-117); CKMB 2.5 ng/ml (0.5-3.6); TOTAL PROTEIN 6.8 gm/dl (6.4-8.2)
[2017-10-24] MEDS ORDERED: SYMIN160 INH ×2 (20:41)
[2017-10-24] MEDS ORDERED: CELE1CAP30 PO ×2 (20:41)
[2017-10-24] MEDS ORDERED: ASPI81TA28 PO ×2 (20:41)
[2017-10-24] MEDS ORDERED: MAGNESIUM HYDROXIDE SUSP 30 ML UDC PO PRN (22:00)
[2017-10-24] MEDS ORDERED: NITROGLYCERIN 0.4 MG SL PER TAB CHARGE SL PRN (22:00)
[2017-10-24] MEDS ORDERED: ONDANSETRON INJ 2 MG/ML 2 ML VIAL IV PRN (22:00)
[2017-10-24] MEDS ORDERED: ACETAMINOPHEN 325 MG TAB PO PRN (22:00)
--- NOTE | 2017-10-24 22:10 | History and Physical ---
History & Physical Date & Time of Service: Oct 24, 2017 at 22:05 Chief Complaint: Trouble Breathing, Cough Primary Care Physician: Pepe Peterson M.D. History of Present Illness Source: patient, hospital records Patient is a 72 year old male with a past medical history of restrictive cardiomyopathy with diastolic dysfunction and history of right sided CHF, GERD, and obstructive sleep apnea that presents with worsening shortness of breath. The patient reports he has been having a cough with progressive shortness of breath over the last 6 month that has rapidly progressed over the last week. The patient has been sleeping in a recliner for the last few month and reports a 15 lb weight gain over the last month despite being on a 1500 calorie per day diet. He has also been having worsening swelling is his legs that now comes up to his knees. His cough has been a dry cough over this period of time and is non productive with no associated URI symptoms. The restrictive CM was first diagnosed in 1987, with most recent stress echo in 2010 with EF of 65-69%. The patient is currently on Bumex and Metolazone for his congestive heart failure. The patient reports that he gets winded after walking up the stairs in his house (approximately 13 steps). He also reports facial and neck swelling making it more difficult for him to swallow pills more recently. estrictive cardiomyopathy first diagnosed in 1987, with diastolic dysfunction and history of right sided CHF. Patient had normal coronary arteries per cardiac catheterization in 1987 at [facility] [place] and in July 2006 at [facility]. Patient also underwent dobutamine stress echo in the preoperative setting in Aug 2011 which demonstrated: normal without resting left ventricular wall motion abnormalities or inducible ischemia.. The qualitative LV ejection fraction is 65 -69% (normal). Past Medical/Surgical History Medical Problems: (1) GERD (gastroesophageal reflux disease) Status: Chronic (2) Localized, primary osteoarthritis of the lower leg Status: Chronic (3) Restrictive cardiomyopathy Status: Chronic (4) Sleep apnea Status: Chronic Family History FH: cancer FH: gallbladder disease FH: heart disease Hypertension Social History Smoking Status: Former Smoker Smokeless Tobacco Use: No Alcohol Use: none Drug Use: none Marital Status: Housing status: lives with family Occupational Status: retired Immunizations History of Influenza Vaccine: Yes History of Tetanus Vaccine?: Unknown History of Pneumococcal: Yes History of Hepatitis B Vaccine: No Multi-Drug Resistant Organisms History of MDRO: No Allergies Coded Allergies: Iodinated Diagnostic Agents (Verified Adverse Reaction, Mild, GI UPSET, ) Home Medications Scheduled Aspirin (Aspirin Ec), 81 MG PO DAILY Atorvastatin (Atorvastatin Calcium), 20 MG PO DAILY Bumetanide (Bumetanide), 3 TAB PO DAILY Carvedilol (Coreg), 12.5 MG PO BID Celecoxib (Celecoxib), 200 MG PO DAILY Ferrous Gluconate (Iron Supplement), 324 MG PO BID Fluoxetine HCl (Fluoxetine HCl), 20 MG PO BID Metolazone (Zaroxolyn), 2.5 MG PO prn Omeprazole (Prilosec), 20 MG PO QAM Potassium Ext Rel (Klor-Con), 20 MEQ PO prn Spironolactone (Aldactone), 25 MG PO QAM Scheduled PRN Budesonide/Formoterol Fumarate (Symbicort 160/4.5 Inhaler), 2 PUFF INH BID PRN for SOB/Wheezing Guaifenesin-Codeine (Guaiatussin Ac), 10 ML PO Q4 PRN for Cough Review of Systems Constitutional: + fatigue, No fever, No chills, No weight loss Respiratory: + cough, + shortness of breath, + dyspnea on exertion, No sputum, No wheezing Cardiovascular: + orthopnea, + PND, + edema, No chest pain, No palpitations Abdomen: No pain, No nausea, No vomiting, No diarrhea Musculoskeletal: No joint pain Neurologic: No memory loss, No numbness/tingling Physical Exam Vital Signs Date Time Temp Pulse Resp B/P (MAP) Pulse Ox O2 Delivery O2 Flow Rate FiO2 10/24/17 20:39 93 142/76 95 Room Air 10/24/17 19:21 98 10/24/17 18:54 Nasal Cannula 2.0 99 10/24/17 18:41 36.9 98 20 157/79 97 Room Air General Appearance: WD/WN, no apparent distress Head: normocephalic, atraumatic Eyes: normal inspection, sclerae normal Neck: supple, no carotid bruits, trachea midline Respiratory/Chest: chest non-tender, + crackles (crackles), + wheezing ( bilaterally) Cardiovascular: regular rate, rhythm, no edema, no gallop, no murmur Abdomen/GI: normal bowel sounds, + distended, + pertinent finding (right upper quadrant tenderness related to muscle strain from cough) Extremities/Musculoskelatal: + pedal edema (2+), + swelling Neurologic/Psych: photograph finisher II-XII nml as tested, no motor/sensory deficits, alert, oriented x 3 Diagnostics Laboratory Results Results Past 24 Hours Test 10/24/17 19:25 10/24/17 19:29 10/24/17 21:52 Range/Units White Blood Count 8.50 4.8-10.8 K/uL Red Blood Count 4.50 4.7-6.1 M/uL Hemoglobin 13.7 14.0-18.0 g/dL Hematocrit 42.4 42-52 % Mean Corpuscular Volume 94.2 80-100 fL Mean Corpuscular Hemoglobin 30.4 25-34 pg Mean Corpuscular Hemoglobin Concent 32.3 32-36 g/dl Platelet Count 206 130-400 K/uL Mean Platelet Volume 10.0 7.4-10.4 fL Neutrophils (%) (Auto) 44.3 % Lymphocytes (%) (Auto) 40.6 % Monocytes (%) (Auto) 9.4 % Eosinophils (%) (Auto) 4.7 % Basophils (%) (Auto) 0.5 % Neutrophils # (Auto) 3.77 1.4-6.5 K/uL Lymphocytes # (Auto) 3.45 1.2-3.4 K/uL Monocytes # (Auto) 0.80 0.11-0.59 K/uL Eosinophils # (Auto) 0.40 0-0.5 K/uL Basophils # (Auto) 0.04 0-0.2 K/uL RDW Standard Deviation 49.0 36.4-46.3 fL RDW Coefficient of Variation 14.4 11.5-14.5 % Immature Granulocyte % (Auto) 0.5 % Immature Granulocyte # (Auto) 0.04 0.00-0.02 K/uL Prothrombin Time 10.0 9.0-12.0 SECONDS Prothromb Time International Ratio 1.0 0.9-1.1 Activated Partial Thromboplast Time 24.4 21.0-31.0 SECONDS Partial Thromboplastin Ratio 0.9 Sodium Level 139 136-145 mmol/L Potassium Level 3.9 3.5-5.1 mmol/L Chloride Level 104 98-107 mmol/L Carbon Dioxide Level 31 21-32 mmol/L Anion Gap 4.0 3-11 mmol/L Blood Urea Nitrogen 16 7-18 mg/dl Creatinine 1.20 0.60-1.40 mg/dl Est Creatinine Clear Calc Drug Dose 80.9 ml/min Estimated GFR () 70.6 Estimated GFR (Non- 60.9 BUN/Creatinine Ratio 13.6 10-20 Random Glucose 127 70-99 mg/dl Calcium Level 9.5 8.5-10.1 mg/dl Magnesium Level 1.8 1.8-2.4 mg/dl Total Bilirubin 0.3 0.2-1 mg/dl Direct Bilirubin < 0.1 0-0.2 mg/dl Aspartate Amino Transf (AST/SGOT) 21 15-37 U/L Alanine Aminotransferase (ALT/SGPT) 37 12-78 U/L Alkaline Phosphatase 70 45-117 U/L Total Creatine Kinase 169 39-308 U/L Creatine Kinase MB 2.5 0.5-3.6 ng/ml Creatine Kinase MB Ratio 1.5 0-3.0 Pro-B-Type Natriuretic Peptide 75 0-900 pg/ml Total Protein 6.8 6.4-8.2 gm/dl Albumin 3.2 3.4-5.0 gm/dl Bedside Troponin I < 0.030 0-0.045 ng/ml Impression Assessment and Plan Patient is a 72 year old male with a past medical history of restrictive cardiomyopathy, GERD, and obstructive sleep apnea that presents with worsening shortness of breath. The patient reports he has been having a cough with progressive shortness of breath over the last 6 month that has rapidly progressed over the last week 1) Acute CHF Exacerbation 2/2 Restrictive Cardiomyopathy with diastolic dysfunction and history of right sided CHF - 1 dose of 40mg IV Lasix in ED --> Repeat dose tomorrow AM - I/O with daily weights - Resume home Metolazone and Bumex - ECHO --> Last echo in 2010 with EF of 65-69% - Cardiology Consult - CXR: No acute cardiopulmonary abnormalities - Supplemental oxygen as needed to maintain SpO2 > 92% - Klor-Con 20meq daily - Resume home Spironolactone 2) Hypertension - Resume home Carvedilol 3) Hyperlipidemia - Resume home Lipitor 4) CAD - Resume home Aspirin - POC Troponin < 0.015, Trend q6h - Fasting Lipid Panel 5) GERD - Protonix 40mg IV Daily 6) Hyperglycemia - No history of Diabetes - HbA1c 6) DVT prophylaxis - SCDs 7) Code Status - Full Resuscitation Attending addendum: I have physically seen this patient, have supervised the medical residents activities, and agree with the H&P unless as otherwise noted. Assessment and Plan: Acute diastolic exacerbation of CHF/restrictive cardiomyopathy/history of right sided CHF/CAD/hypertension-- The patient will be admitted to telemetry for serial cardiac enzymes, serial EKG's, cardiac rhythm monitoring and a 2-D echocardiogram with Dopplers. Given Lasix 40 mg IV in the ED, will continue in the a.m. Monitor to not excessively decrease preload Due for repeat echo as noted. Resume carvedilol tonight. Resume aspirin Continue potassium supplementation, repeat BMP and magnesium level in a.m. Consult cardiology Check a hemoglobin A1c and fasting lipid panel Resume other home regimen as clinical improvement allows. Level of Care Telemetry Advanced Directives Existing Advance Directive: No Existing Living Will: No Existing Power of Instantizer Operator: No Resuscitation Status FULL RESUSCITATION VTE Prophylaxis VTE Risk Assessment Done? Y/N: Yes Risk Level: Moderate Given or contraindicated: SCD's Social Service Consult None Apply Resident Tracking Resident Involvement: Resident Care Provided Care Provided: Adult Hospital Medicine
[2017-10-24] MEDS ORDERED: BUDESONIDE/FORMOTEROL FUMARATE 160/4.5 60 PUFFS/INHALER INH PRN (22:45)
[2017-10-24 23:25] VITALS: BP 137/86; PULSE 94; TEMP 36.6; O2SAT 94; Ht 177.8 cm; Wt 131.4 kg
[2017-10-25] VITALS (8 sets, daily range): BP systolic 124–147; BP diastolic 79–91; PULSE 80–90; TEMP 36.2–37.2; O2SAT 91–97
[2017-10-25] MEDS ORDERED: NURSING VERBAL MED ORDER ONE (01:45)
[2017-10-25 04:28] LABS: BLOOD UREA NITROGEN 18 mg/dl (7-18); CALCIUM 9.6 mg/dl (8.5-10.1); CARBON DIOXIDE 31 mmol/L (21-32); CREATININE 1.21 mg/dl (0.60-1.40); GLUCOSE 141 mg/dl (70-99); POTASSIUM 3.6 mmol/L (3.5-5.1); SODIUM 141 mmol/L (136-145)
[2017-10-25 04:33] LABS: CHOLESTEROL 140 mg/dl (0-200); LDL CHOLESTEROL CALCULATED 55 mg/dl
[2017-10-25 07:23] LABS: HEMOGLOBIN A1C 7.1 % (4.5-5.6)
[2017-10-25] MEDS ORDERED: PERFLUTREN LIPID MICROSPHERE (DEFINITY) IV ONE (08:04)
[2017-10-25] MEDS: PANTOprazole INJ 40 MG in SYRINGE 0 ML IV SCH (08:15)
[2017-10-25] MEDS: CARVEDILOL 12.5 MG TAB PO SCH ×2 (08:16→20:00)
[2017-10-25] MEDS: CeleBREX 200 MG CAP PO SCH (08:16)
[2017-10-25] MEDS: FERROUS GLUCONATE 324 MG TAB PO SCH ×2 (08:16→20:00)
[2017-10-25] MEDS: SPIRONOLACTONE 25 MG TAB PO SCH (08:17)
[2017-10-25] MEDS: ATORVASTATIN 20 MG TAB PO SCH (08:17)
[2017-10-25] MEDS: ASPIRIN 81 MG ECTAB PO SCH (08:18)
[2017-10-25] MEDS: FLUOXETINE HCL 20 MG CAP PO SCH ×2 (08:20→20:00)
[2017-10-25] MEDS ORDERED: BUMETANIDE 1 MG TAB PO SCH (09:00)
[2017-10-25] MEDS ORDERED: FUROSEMIDE INJ 40 MG in SYRINGE 0 ML IV SCH (09:00)
--- NOTE | 2017-10-25 10:24 | Family Medicine Progress Note ---
Progress Note Date of Service Oct 25, 2017. Subjective Pt evaluation today including: conversation w/ patient, physical exam, chart review, lab review, review of studies, review of inpatient medication list 72 year old male with restrictive cardiomyopathy presents with slowly progressively worsening shortness of breath and increasing weight. He is under Dr Griffin for his restrictive cardiomyopathy. Since receiving lasix in the ER and this morning he is feeling much better but not yet back to his baseline. He denies any chest pain or palpations. He does describe orthopnea which is improving. He has a chronic cough lasting for several months and visited the ER in August for this issue - at that time he had normal V/Q scan and was treated with steroids and antibiotics for presumed pneumonia. He does have reflux but reports this is under control with his omeprazole. Constitutional: No fever, No chills All Other Systems: Reviewed and Negative Medications Current Inpatient Medications Medications (Trade) Dose Ordered Sig/Andrew Route Start Time Stop Time Status Last Admin Dose Admin Furosemide 40 mg/ Syringe 4 ml @ 4 mls/min DAILY@09 IV 10/25/17 09:00 11/24/17 08:59 10/25/17 08:15 4 MLS/MIN Acetaminophen (Tylenol Tab) 650 mg Q4H PRN PO 10/24/17 22:00 11/23/17 21:59 Magnesium Hydroxide (Milk Of Magnesia Susp) 30 ml Q12H PRN PO 10/24/17 22:00 11/23/17 21:59 Ondansetron HCl (Zofran Inj) 4 mg Q6H PRN IV 10/24/17 22:00 11/23/17 21:59 Nitroglycerin (Nitrostat Tab) 0.4 mg UD PRN SL 10/24/17 22:00 11/23/17 21:59 Aspirin (Ecotrin Tab) 81 mg DAILY PO 10/25/17 09:00 11/24/17 08:59 10/25/17 08:18 81 MG Atorvastatin Calcium (Lipitor Tab) 20 mg DAILY PO 10/25/17 09:00 11/24/17 08:59 10/25/17 08:17 20 MG Budesonide/ Formoterol Fumarate (Symbicort 160/ 4.5 Inh) 240 puffs BID PRN INH 10/24/17 22:45 11/23/17 22:44 Bumetanide (Bumex Tab) 3 mg DAILY PO 10/25/17 09:00 11/24/17 08:59 10/25/17 08:17 3 MG Carvedilol (Coreg Tab) 12.5 mg BID PO 10/25/17 09:00 11/24/17 08:59 10/25/17 08:16 12.5 MG Celecoxib (CeleBREX CAP) 200 mg DAILY PO 10/25/17 09:00 11/24/17 08:59 10/25/17 08:16 200 MG Ferrous Gluconate (Ferrous Gluconate Tab) 324 mg BID PO 10/25/17 09:00 11/24/17 08:59 10/25/17 08:16 324 MG Fluoxetine HCl (Prozac Cap) 20 mg BID PO 10/25/17 09:00 11/24/17 08:59 10/25/17 08:20 20 MG Miscellaneous Information (Order Awaiting Action) 1 ea QS N/A 10/25/17 00:00 11/24/17 00:00 Future Hold Spironolactone (Aldactone Tab) 25 mg QAM PO 10/25/17 09:00 11/24/17 08:59 10/25/17 08:17 25 MG Pantoprazole Sodium 40 mg/ Syringe 10 ml @ 5 mls/min DAILY@11 IV 10/25/17 11:00 11/24/17 10:59 10/25/17 08:15 5 MLS/MIN Objective Vital Signs Date Time Temp Pulse Resp B/P (MAP) Pulse Ox O2 Delivery O2 Flow Rate FiO2 10/25/17 08:00 97 Room Air 10/25/17 04:00 93 Room Air 10/25/17 03:36 36.6 90 18 147/89 (108) 93 Room Air 10/24/17 23:25 36.6 94 20 137/86 94 Room Air 10/24/17 23:09 89 20 122/82 96 Room Air 10/24/17 20:39 93 142/76 95 Room Air 10/24/17 19:21 98 10/24/17 18:54 Nasal Cannula 2.0 99 10/24/17 18:41 36.9 98 20 157/79 97 Room Air Physical Exam General Appearance: no apparent distress, + obese Eyes: normal inspection, EOMI Neck: no JVD Respiratory/Chest: lungs clear, normal breath sounds, no respiratory distress, no accessory muscle use Cardiovascular: regular rate, rhythm (quiet) Abdomen: normal bowel sounds, non tender, soft Extremities: + pedal edema (1+ to knees bilaterally) Neurologic/Psychiatric: no motor/sensory deficits (grossly normal), alert, oriented x 3 Skin: normal color, warm/dry, no rash Laboratory Results 10/24/17 19:25 Red Blood Count 4.50, Mean Corpuscular Volume 94.2, Mean Corpuscular Hemoglobin 30.4, Mean Corpuscular Hemoglobin Concent 32.3, Mean Platelet Volume 10.0, Neutrophils (%) (Auto) 44.3, Lymphocytes (%) (Auto) 40.6, Monocytes (%) (Auto) 9.4, Eosinophils (%) (Auto) 4.7, Basophils (%) (Auto) 0.5, Neutrophils # (Auto) 3.77, Lymphocytes # (Auto) 3.45, Monocytes # (Auto) 0.80, Eosinophils # (Auto) 0.40, Basophils # (Auto) 0.04 10/25/17 03:46 Test 10/24/17 19:25 10/24/17 19:29 10/25/17 03:46 10/25/17 09:52 White Blood Count 8.50 K/uL (4.8-10.8) Red Blood Count 4.50 M/uL (4.7-6.1) Hemoglobin 13.7 g/dL (14.0-18.0) Hematocrit 42.4 % (42-52) Mean Corpuscular Volume 94.2 fL (80-100) Mean Corpuscular Hemoglobin 30.4 pg (25-34) Mean Corpuscular Hemoglobin Concent 32.3 g/dl (32-36) Platelet Count 206 K/uL (130-400) Mean Platelet Volume 10.0 fL (7.4-10.4) Neutrophils (%) (Auto) 44.3 % Lymphocytes (%) (Auto) 40.6 % Monocytes (%) (Auto) 9.4 % Eosinophils (%) (Auto) 4.7 % Basophils (%) (Auto) 0.5 % Neutrophils # (Auto) 3.77 K/uL (1.4-6.5) Lymphocytes # (Auto) 3.45 K/uL (1.2-3.4) Monocytes # (Auto) 0.80 K/uL (0.11-0.59) Eosinophils # (Auto) 0.40 K/uL (0-0.5) Basophils # (Auto) 0.04 K/uL (0-0.2) RDW Standard Deviation 49.0 fL (36.4-46.3) RDW Coefficient of Variation 14.4 % (11.5-14.5) Immature Granulocyte % (Auto) 0.5 % Immature Granulocyte # (Auto) 0.04 K/uL (0.00-0.02) Prothrombin Time 10.0 SECONDS (9.0-12.0) Prothromb Time International Ratio 1.0 (0.9-1.1) Activated Partial Thromboplast Time 24.4 SECONDS (21.0-31.0) Partial Thromboplastin Ratio 0.9 Estimated Average Glucose 157 mg/dl Hemoglobin A1c 7.1 % (4.5-5.6) Magnesium Level 1.8 mg/dl (1.8-2.4) Total Bilirubin 0.3 mg/dl (0.2-1) Direct Bilirubin < 0.1 mg/dl (0-0.2) Aspartate Amino Transf (AST/SGOT) 21 U/L (15-37) Alanine Aminotransferase (ALT/SGPT) 37 U/L (12-78) Alkaline Phosphatase 70 U/L (45-117) Total Creatine Kinase 169 U/L (39-308) Creatine Kinase MB 2.5 ng/ml (0.5-3.6) Creatine Kinase MB Ratio 1.5 (0-3.0) Pro-B-Type Natriuretic Peptide 75 pg/ml (0-900) Total Protein 6.8 gm/dl (6.4-8.2) Albumin 3.2 gm/dl (3.4-5.0) Bedside Troponin I < 0.030 ng/ml (0-0.045) Anion Gap 5.0 mmol/L (3-11) Est Creatinine Clear Calc Drug Dose 78.6 ml/min Estimated GFR () 69.9 Estimated GFR (Non- 60.3 BUN/Creatinine Ratio 14.8 (10-20) Calcium Level 9.6 mg/dl (8.5-10.1) Triglycerides Level 195 mg/dl (0-150) Cholesterol Level 140 mg/dl (0-200) HDL Cholesterol 46 mg/dl LDL Cholesterol, Calculated 55 mg/dl VLDL Cholesterol, Calculated 39 mg/dl Cholesterol/HDL Ratio 3.0 Assessment and Plan 72 year old male with restrictive cardiomyopathy, GERD, and obstructive sleep apnea that presents with progressively worsening shortness of breath and chronic cough. Improving with IV lasix Acute Diastolic CHF Exacerbation - Biventricular R >L - Continue IV Lasix 40 mg (increase to BID as hold bumex) - I/O and daily weights - he reports his dry weight as 270lb - Continue Metolazone (hold bumex while treating pulmonary edema with - Repeat ECHO --> Last echo in 2010 with EF of 65-69% - Cardiology Consult - switched to Dr Griffin as this is his outpatient wood stainer - Supplemental oxygen as needed to maintain SpO2 > 92% (not on oxygen at baseline) - Klor-Con 20meq daily - Resume home Spironolactone Generalized edema - likely due to above however will add UA to assess for proteinuria OHS with morbid obesity Obstructive sleep apnea - outpatient follow up as patient not on CPAP at home - monitor night time saturations to see if they drop Hypertension - Continue carvedilol, spironolactone and metolazone - Lasix as above Hyperlipidemia - Continue Lipitor Nonobstructive CAD on last [facility] - Aspirin, carvedilol, atorvastatin - POC Troponin < 0.015, Trend q6h - Fasting Lipid Panel GERD - Switch pantoprazole from IV to PO - possible etiology of his chronic cough - follow up with PCP Hyperglycemia - No history of Diabetes - HbA1c 7.1 - will need outpatient follow up - consider metformin on discharge, will treat with insulin PRN here Obstructive lung disease - last PFT from 2012 with moderate obstruction - reversible with bronchodilator. - has PRN Symbicort outpatient medication, will give scheduled here to see if help with his cough VTE prophylaxis - SCDs - lovenox 40 mg SQ daily Code - Full Disposition - Continue on telemetry Resident Tracking Resident Involvement: Resident Care Provided Care Provided: Adult Hospital Medicine Reviewed: Pt Seen/Exam by Me History urinating a lot. feeling overall better. Constitutional: denies: fever Respiratory: negative: short of breath Cardiovascular: denies chest pain General Appearance: no apparent distress Respiratory: no respiratory distress, decreased breath sounds (base) Cardiovascular: regular rate, rhythm Gastrointestinal: soft Extremities: pedal edema (mild) Neurologic/Psychiatric: alert, oriented x 3 Skin Characteristics: warm/dry Assessment/Plan Resident Physician Supervision Note: I independently interviewed and examined the patient and verified the velazquez history and physical, reviewed labs and image studies, discussed the case with the resident Dr. Martins and agree with the findings and care plan.
[2017-10-25] MEDS ORDERED: ENOXAPARIN 40 MG/0.4 ML SYR SQ ONE (10:30)
[2017-10-25] MEDS ORDERED: BUDESONIDE/FORMOTEROL FUMARATE 160/4.5 60 PUFFS/INHALER INH ONE (10:30)
--- NOTE | 2017-10-25 10:35 | ECHOCARDIOGRAM REPORT ---
*NOTICE TO RECEIVING [employer] This information is strictly Confidential and protected under [place] law. [place] law prohibits you from making any further disclosure of this information unless further disclosure is expressly permitted by the written consent of the person to whom it pertains or is authorized by law. A general authorization for the release of medical or other information is not sufficient for this purpose. Hospital accepts no responsibility if the information is made available to any other person, INCLUDING THE PATIENT. Interpretation Summary * Name: JORDAN VILLANUEVA Study Date: 10/25/2017 07:12 AM BP: 147/89 mmHg * Patient Location: C.2T\S\S242\S\2 HR: 86 * : 1945 (M/d/yyyy) Gender: Male Height: 71 in * Age: 72 yrs Ethnicity: CA Weight: 301 lb * Ordering Physician: Gurvinder Ramirez * Referring Physician: Jose L Griffin * Performed By: Cara Ruiz RCS * * Reason For Study: RESTRICTIVE CARDIOMYOPATHY * BSA: 2.5 m2 * -- Conclusions -- * The left ventricle is normal in size. * There is moderate concentric left ventricular hypertrophy. * Left ventricular systolic function is normal. * No regional wall motion abnormalities noted. * Ejection Fraction = 65-70%. * Grade I diastolic dysfunction, (abnormal relaxation pattern). * There were technical limitations due to patient'sPoor acoustic windows secondary to severe lung disease. Procedure Details * A complete two-dimensional transthoracic echocardiogram was performed (2D, M-mode, Doppler and color flow Doppler). * The study was technically difficult. * There were technical limitations due to patient'sPoor acoustic windows secondary to severe lung disease. * A contrast injection of Definity was performed to improve assessment of LV function. * Contrast was injected into an intravenous site in the right arm. * One vial of Definity ultrasound contrast was diluted in normal saline to a total volume of 10 ml. A total of '1' ml of solution was administered during imaging. * Lot # [id number] of Definity utilized for procedure. * Expiration date 1 DEC 04. * The attending nurse who injected the contrast agent was MEHNAZ MORAN CPL, RN. Left Ventricle * The left ventricle is normal in size. * There is moderate concentric left ventricular hypertrophy. * Left ventricular systolic function is normal. * Ejection Fraction = 65-70%. * No regional wall motion abnormalities noted. Right Ventricle * The right ventricle is normal in size and function. Atria * The left atrium is moderately dilated. * Right atrial size is normal. * No ASD detected; PFO is not assessed. Mitral Valve * The mitral valve anatomy is normal. * There is no mitral valve stenosis. * There is trace mitral regurgitation. Tricuspid Valve * The tricuspid valve is not well visualized. * There is no tricuspid stenosis. * There is trace tricuspid regurgitation. Aortic Valve * The aortic valve is trileaflet. * Aortic valve sclerosis mild, without significant aortic valvular stenosis. * No aortic regurgitation is present. Pulmonic Valve * The pulmonic valve is not well visualized. Great Vessels * The aortic root is normal size. Pericardium/Pleural * There is no pericardial effusion. Great Vessels * Normal inferior vena cava diameter and respiratory variation suggests normal central venous pressure. Left Ventricular Diastolic Function * Grade I diastolic dysfunction, (abnormal relaxation pattern). MMode 2D Measurements and Calculations IVSd 1.6 cm IVSs 2.1 cm LVIDd 5.4 cm LVIDs 3.5 cm LVPWd 1.3 cm LVPWs 1.7 cm IVS/LVPW 1.2 FS 35.3 % EDV(Teich) 140.0 ml ESV(Teich) 50.2 ml EF(Teich) 64.1 % EDV(cubed) 155.5 ml ESV(cubed) 42.2 ml EF(cubed) 72.9 % % IVS thick 36.2 % % LVPW thick 25.6 % LV mass(C)d 344.9 grams LV mass(C)dI 137.5 grams/m\S\2 LV mass(C)s 289.7 grams LV mass(C)sI 115.5 grams/m\S\2 SV(Teich) 89.8 ml SI(Teich) 35.8 ml/m\S\2 SV(cubed) 113.4 ml SI(cubed) 45.2 ml/m\S\2 Ao root diam 2.8 cm Ao root area 6.0 cm\S\2 ACS 1.9 cm LA dimension 4.4 cm LA/Ao 1.6 LVAd ap4 25.6 cm\S\2 LVLd ap4 7.4 cm EDV(MOD-sp4) 70.3 ml EDV(sp4-el) 74.7 ml LVAs ap4 7.8 cm\S\2 LVLs ap4 5.8 cm ESV(MOD-sp4) 8.6 ml ESV(sp4-el) 8.8 ml EF(MOD-sp4) 87.8 % EF(sp4-el) 88.3 % LVAd ap2 24.5 cm\S\2 LVLd ap2 6.8 cm EDV(MOD-sp2) 70.0 ml EDV(sp2-el) 74.4 ml LVAs ap2 16.4 cm\S\2 LVLs ap2 6.4 cm ESV(MOD-sp2) 33.7 ml ESV(sp2-el) 36.1 ml EF(MOD-sp2) 51.9 % EF(sp2-el) 51.5 % LVLd %diff -8.95 % EDV(MOD-bp) 72.7 ml LVLs %diff 8.4 % ESV(MOD-bp) 17.5 ml EF(MOD-bp) 75.9 % SV(MOD-sp4) 61.7 ml SI(MOD-sp4) 24.6 ml/m\S\2 SV(MOD-sp2) 36.3 ml SI(MOD-sp2) 14.5 ml/m\S\2 SV(MOD-bp) 55.1 ml SI(MOD-bp) 22.0 ml/m\S\2 SV(sp4-el) 66.0 ml SI(sp4-el) 26.3 ml/m\S\2 SV(sp2-el) 38.3 ml SI(sp2-el) 15.3 ml/m\S\2 Doppler Measurements and Calculations MV E max abraham 88.0 cm/sec MV A max abraham 100.4 cm/sec MV E/A 0.88 MV P1/2t max abraham 101.8 cm/sec MV P1/2t 69.0 msec MVA(P1/2t) 3.2 cm\S\2 MV dec slope 432.4 cm/sec\S\2 MV dec time 0.23 sec Ao V2 max 155.4 cm/sec Ao max PG 9.7 mmHg Ao max PG (full) 2.2 mmHg LV V1 max PG 7.5 mmHg LV V1 max 136.8 cm/sec TR max abraham 272.6 cm/sec
[2017-10-25] MEDS ORDERED: POTASSIUM CHLORIDE 20 MEQ TABCR PO STA (11:24)
--- NOTE | 2017-10-25 11:57 | CARDIOLOGY CONSULTATION ---
DATE OF CONSULTATION: 10/25/2017 REFERRING PHYSICIAN: Dr. Ramirez. INDICATIONS: Decompensated diastolic heart failure. HISTORY OF PRESENT ILLNESS: The patient is a 72-year-old male with a complex past medical history which includes: 1. Chronic diastolic cardiovascular disease with preserved systolic ejection fraction with associated past right greater than left biventricular heart failure. 2. History of obstructive sleep apnea and chronic obesity with hypoventilation syndrome. 3. Labile hypertension with hypertensive heart disease. 4. Past diagnostic cardiac catheterizations on 2 separate occasions, last 2005 without obstructive coronary disease. Last stress echocardiography performed December of 2015 without ischemia. The patient presents this admission noting hospitalization in August of 2017 with acute tracheobronchitis, treated with corticosteroids on 2 separate courses for worsening cough and wheezing. The patient presents now noting worsening shortness of breath and fullness in the chest, throat abdomen with greater than 20-pound weight gain over the past 6 months. He has noted some increasing lower extremity edema and abdominal bloating as well. Notes no fevers, chills or productive cough. Continues to have wheeziness and dyspnea with exertion. Notes no dizziness or lightheadedness. Notes no syncope or near syncope. Notes no melena, hematochezia, dysuria or hematuria. Notes no rash, arthritic complaints. Has been taking medications, has been off CPAP for number of months due to "initially losing weight", all of which he has regained. ALLERGIES: NOTABLY IODINE. MEDICATIONS: Prior to hospitalization were aspirin 81 mg per day, atorvastatin 20 mg p.o. daily, Bumex 3 mg p.o. daily, carvedilol 12.5 mg twice per day, Celebrex 200 mg p.o. daily, iron supplement 324 mg b.i.d., Prozac 20 mg b.i.d., metolazone 2.5 mg on a p.r.n. basis, omeprazole 20 mg q.a.m., potassium chloride 20 mEq p.r.n., and spironolactone 25 mg q.a.m. PAST SURGICAL HISTORY: Notable for left knee arthroplasty, prior cholecystectomy, remote inguinal hernia repair. FAMILY HISTORY: Not specifically notable for cardiac disease. SOCIAL HISTORY: The patient is a former smoker with 2-pack per day use for 10 years, discontinued in 1974. Uses no alcoholic products, since 1987. PHYSICAL EXAMINATION: VITAL SIGNS: Heart rate is 89, blood pressure is 137/89, O2 saturations 95% on room air. HEENT: Normocephalic, atraumatic. NECK: Thick. There is no distinct jugular venous distention. LUNGS: Reveal diminished breath sounds diffusely with scattered wheezes on forced cough. CARDIOVASCULAR: Regular. There is no S3 gallop. ABDOMEN: Obese, soft with large panniculus and moderate abdominal distention. EXTREMITIES: Reveal 2-3+ lower extremity edema. NEUROLOGIC: The patient is answering questions appropriately. LABORATORY DATA: On presentation, white cell count was 8.5, hemoglobin 13.7, platelet count was 206. Sodium was 141, potassium 3.6, chloride 105, bicarbonate 31, BUN 18, creatinine is 1.2. Cholesterol is 140 with an LDL of 55. Troponins are negative x3. IMAGING DATA: Chest x-ray reveals no distinct infiltrate or edema. IMPRESSION: A 72-year-old male with known history of past hypertension, hypertensive heart disease and diastolic left ventricular dysfunction with past biventricular heart failure, right greater than left, etiology mixed secondary to diastolic left ventricular dysfunction as well as elevated right heart pressures secondary to sleep apnea and morbid obesity. The patient has gained at least 20 pounds in the recent months with at least portion of his fluid retention, by examination. I agree with plans for IV diuretics. We will increase furosemide to twice per day IV and follow outputs and renal function closely. O2 saturations to be performed nocturnally with plans to overall reinstitute CPAP supplementation for underlying well documented obstructive sleep apnea. Will continue prior medications carvedilol as previously ordered as well as spironolactone and potassium will be supplemented today with consideration of increasing spironolactone dosing, depending on clinical course. We will continue to follow patient in the hospital.
--- NOTE | 2017-10-25 17:17 | Medical Student: [facility] ---
Med Student Progress Note Date of Service Oct 25, 2017. Subjective Pt is a 72 yo M who presented with a 6-mo hx of progressive SOB and dry cough, and for the fast several weeks these symptoms quickly deteriorated, prompting him to come to the hospital. Hx notable for restrictive cardiomyopathy back in 1987 when he presented with similar symptoms, and he has been followed by it auditor Dr. Griffin for it. On an outpt basis he used Bumex and metolazone. His EF from ECHO in 2010 showed 65-69% EF. Other hx notable for GERD, and RAMAN. He received lasix in the ED last night and this morning which he reports has made him feel better with frequent urinations. Today he is not having any acute complaints. He still has generalized edema most noticeable in the abdominal area and legs. Says his hands don't feel swollen but has a tight feeling. ECHO done today showed 65-70% with Grade I diastolic dysfunction. Review of Systems Constitutional: + fatigue, No fever Eyes: No worsening of vision ENT: No hearing loss Respiratory: + cough, + shortness of breath, + dyspnea on exertion Cardiac: + orthopnea, + PND, + edema, No chest pain Abdomen: No pain, No nausea Musculoskeletal: No joint pain, No muscle pain Male : No dysuria Neurologic: No memory loss Psychiatric: No depression symptoms Heme: No abnormal bleeding/bruising Endo: + fatigue Skin: No rash, No itch Objective Vital Signs Date Time Temp Pulse Resp B/P (MAP) Pulse Ox O2 Delivery O2 Flow Rate FiO2 10/25/17 12:00 Room Air 10/25/17 11:19 36.8 80 18 124/79 (94) 91 Room Air 10/25/17 08:30 37.0 89 18 137/89 (105) 95 Room Air 10/25/17 08:00 97 Room Air 10/25/17 04:00 93 Room Air 10/25/17 03:36 36.6 90 18 147/89 (108) 93 Room Air 10/24/17 23:25 36.6 94 20 137/86 94 Room Air 10/24/17 23:09 89 20 122/82 96 Room Air 10/24/17 20:39 93 142/76 95 Room Air 10/24/17 19:21 98 10/24/17 18:54 Nasal Cannula 2.0 99 1/9/18 18:41 36.9 98 20 157/79 97 Room Air Physical Exam General Appearance: WD/WN, no apparent distress Eyes: bilateral eyes normal inspection, bilateral eyes PERRL, bilateral eyes EOMI, bilateral eyes abnormal EOM ENT: normal ENT inspection, hearing grossly normal Neck: supple, thyroid normal, no JVD Respiratory/Chest: chest non-tender, lungs clear, normal breath sounds, no respiratory distress Cardiovascular: regular rate, rhythm, no edema, no gallop, no JVD, no murmur Abdomen: normal bowel sounds, non tender, soft Extremities: normal range of motion, non-tender, normal inspection, + swelling (bilateral lower extremity) Neurologic/Psychiatric: 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 as tested, no motor/sensory deficits, alert, normal mood/affect, oriented x 3 Skin: normal color, warm/dry, no rash Laboratory Results Last 24 Hours Test 10/24/17 19:25 10/24/17 19:29 10/24/17 22:12 10/25/17 03:46 White Blood Count 8.50 K/uL Red Blood Count 4.50 M/uL Hemoglobin 13.7 g/dL Hematocrit 42.4 % Mean Corpuscular Volume 94.2 fL Mean Corpuscular Hemoglobin 30.4 pg Mean Corpuscular Hemoglobin Concent 32.3 g/dl Platelet Count 206 K/uL Mean Platelet Volume 10.0 fL Neutrophils (%) (Auto) 44.3 % Lymphocytes (%) (Auto) 40.6 % Monocytes (%) (Auto) 9.4 % Eosinophils (%) (Auto) 4.7 % Basophils (%) (Auto) 0.5 % Neutrophils # (Auto) 3.77 K/uL Lymphocytes # (Auto) 3.45 K/uL Monocytes # (Auto) 0.80 K/uL Eosinophils # (Auto) 0.40 K/uL Basophils # (Auto) 0.04 K/uL RDW Standard Deviation 49.0 fL RDW Coefficient of Variation 14.4 % Immature Granulocyte % (Auto) 0.5 % Immature Granulocyte # (Auto) 0.04 K/uL Prothrombin Time 10.0 SECONDS Prothromb Time International Ratio 1.0 Activated Partial Thromboplast Time 24.4 SECONDS Partial Thromboplastin Ratio 0.9 Sodium Level 139 mmol/L 141 mmol/L Potassium Level 3.9 mmol/L 3.6 mmol/L Chloride Level 104 mmol/L 105 mmol/L Carbon Dioxide Level 31 mmol/L 31 mmol/L Anion Gap 4.0 mmol/L 5.0 mmol/L Blood Urea Nitrogen 16 mg/dl 18 mg/dl Creatinine 1.20 mg/dl 1.21 mg/dl Est Creatinine Clear Calc Drug Dose 80.9 ml/min 78.6 ml/min Estimated GFR () 70.6 69.9 Estimated GFR (Non- 60.9 60.3 BUN/Creatinine Ratio 13.6 14.8 Random Glucose 127 mg/dl 141 mg/dl Estimated Average Glucose 157 mg/dl Hemoglobin A1c 7.1 % Calcium Level 9.5 mg/dl 9.6 mg/dl Magnesium Level 1.8 mg/dl Total Bilirubin 0.3 mg/dl Direct Bilirubin < 0.1 mg/dl Aspartate Amino Transf (AST/SGOT) 21 U/L Alanine Aminotransferase (ALT/SGPT) 37 U/L Alkaline Phosphatase 70 U/L Total Creatine Kinase 169 U/L Creatine Kinase MB 2.5 ng/ml Creatine Kinase MB Ratio 1.5 Pro-B-Type Natriuretic Peptide 75 pg/ml Total Protein 6.8 gm/dl Albumin 3.2 gm/dl Bedside Troponin I < 0.030 ng/ml Troponin I < 0.015 ng/ml < 0.015 ng/ml Triglycerides Level 195 mg/dl Cholesterol Level 140 mg/dl HDL Cholesterol 46 mg/dl LDL Cholesterol, Calculated 55 mg/dl VLDL Cholesterol, Calculated 39 mg/dl Cholesterol/HDL Ratio 3.0 Test 10/25/17 10:22 10/25/17 11:18 Troponin I < 0.015 ng/ml Urine Color YELLOW Urine Appearance CLEAR Urine pH 5.5 Urine Specific [place] 1.014 Urine Protein NEG Urine Glucose (UA) NEG Urine Ketones NEG Urine Occult Blood NEG Urine Nitrite NEG Urine Bilirubin NEG Urine Urobilinogen NEG Urine Leukocyte Esterase NEG Urine WBC (Auto) 0 /hpf Urine RBC (Auto) 0-4 /hpf Urine Hyaline Casts (Auto) 1-5 /lpf Urine Epithelial Cells (Auto) 0-5 /lpf Urine Bacteria (Auto) NEG Medications Current Inpatient Medications Medications (Trade) Dose Ordered Sig/Andrew Route Start Time Stop Time Status Last Admin Dose Admin Acetaminophen (Tylenol Tab) 650 mg Q4H PRN PO 10/24/17 22:00 11/23/17 21:59 Magnesium Hydroxide (Milk Of Magnesia Susp) 30 ml Q12H PRN PO 10/24/17 22:00 11/23/17 21:59 Ondansetron HCl (Zofran Inj) 4 mg Q6H PRN IV 10/24/17 22:00 11/23/17 21:59 Nitroglycerin (Nitrostat Tab) 0.4 mg UD PRN SL 10/24/17 22:00 11/23/17 21:59 Aspirin (Ecotrin Tab) 81 mg DAILY PO 10/25/17 09:00 11/24/17 08:59 10/25/17 08:18 81 MG Atorvastatin Calcium (Lipitor Tab) 20 mg DAILY PO 10/25/17 09:00 11/24/17 08:59 10/25/17 08:17 20 MG Bumetanide (Bumex Tab) 3 mg DAILY PO 10/25/17 09:00 11/24/17 08:59 Future Hold 10/25/17 08:17 3 MG Carvedilol (Coreg Tab) 12.5 mg BID PO 10/25/17 09:00 11/24/17 08:59 10/25/17 08:16 12.5 MG Celecoxib (CeleBREX CAP) 200 mg DAILY PO 10/25/17 09:00 11/24/17 08:59 10/25/17 08:16 200 MG Ferrous Gluconate (Ferrous Gluconate Tab) 324 mg BID PO 10/25/17 09:00 11/24/17 08:59 10/25/17 08:16 324 MG Fluoxetine HCl (Prozac Cap) 20 mg BID PO 10/25/17 09:00 11/24/17 08:59 10/25/17 08:20 20 MG Miscellaneous Information (Order Awaiting Action) 1 ea QS N/A 10/25/17 00:00 11/24/17 00:00 Future Hold Spironolactone (Aldactone Tab) 25 mg QAM PO 10/25/17 09:00 11/24/17 08:59 10/25/17 08:17 25 MG Pantoprazole Sodium 40 mg/ Syringe 10 ml @ 5 mls/min DAILY@11 IV 10/25/17 11:00 11/24/17 10:59 10/25/17 08:15 5 MLS/MIN Budesonide/ Formoterol Fumarate (Symbicort 160/ 4.5 Inh) 2 puffs BID INH 10/25/17 21:00 11/24/17 20:59 Enoxaparin Sodium (Lovenox Inj) 40 mg QAM SQ 10/26/17 09:00 11/25/17 08:59 Furosemide 40 mg/ Syringe 4 ml @ 4 mls/min BID17 IV 10/25/17 17:00 11/24/17 08:59 Assessment and Plan Assessment and Plan: Pt is a 72 yo M with hx notable for restrictive cardiomyopathy diagnosed in 1987 , right sided CHF, diastolic CHF, GERD, and RAMAN who presented with SOB and cough that has been progressively worsening in the past 6 months with rapid progression in the last several weeks. CHF Exacerbation - Given lasix 40mg at the ED which pt reports made him feel better. Given lasix 40 mg again this morning. Will plan to give again tomorrow AM. - Daily weights. Pt reported dry weight: 270 lbs - Cardiology consult with Dr. Griffin obtained, input appreciated - Agree with plan for IV diuretics - Increase IV furosemide to BID and follow output - Continue carvedilol, potassium (Klor-Con), and spironolactone - ECHO done today shows EF 65 - 70% with Grade I diastolic dysfunction ( abnormal relaxation pattern) compared to previous one showing EF 65 - 69 % in 2010 - PRN supplemental O2 Edema - Like 2/2 right sided CHF - Perform UA to assess for proteinuria: Urine Protein NEG HTN - Carvedilol, spironolactone RAMAN - Not on CPAP as an outpatient - Monitor night O2 sat CAD - Aspirin, carvedilol, statin GERD - Pantoprazole Hyperglycemia - No previous diagnosis of DM - HbA1c found to be 7.1 - Consider outpatient metformin VTE Prophylaxis - SCDs - Lovenox 40 mg SQ q daily Code - Full Disposition - Continue on telemetry
[2017-10-25] MEDS: BUDESONIDE/FORMOTEROL FUMARATE 160/4.5 60 PUFFS/INHALER INH SCH (20:00)
[2017-10-25] MEDS: FUROSEMIDE INJ 40 MG in SYRINGE 0 ML IV SCH (20:01)
[2017-10-25] MEDS ORDERED: ACETAMINOPHEN 500 MG TAB PO ONE (21:29)
[2017-10-26] VITALS (14 sets, daily range): BP systolic 113–139; BP diastolic 71–83; PULSE 81–93; TEMP 36.6–36.8; O2SAT 91–96
[2017-10-26 07:34] LABS: BASO % 0.5 %; BASO ABS # 0.04 K/uL (0-0.2); EOS % 5.2 %; EOS ABS # 0.43 K/uL (0-0.5); HEMATOCRIT 44.3 % (42-52); HEMOGLOBIN 13.9 g/dL (14.0-18.0); IG# 0.06 K/uL (0.00-0.02); LYMPH % 44.1 %; LYMPH ABS # 3.67 K/uL (1.2-3.4); MEAN CELL VOLUME 95.7 fL (80-100); MEAN CORPUSCULAR HGB CONC 31.4 g/dl (32-36); MONO % 10.7 %; MONO ABS # 0.89 K/uL (0.11-0.59); NEUT % 38.8 %; NEUT ABS # 3.24 K/uL (1.4-6.5); PLATELET COUNT 201 K/uL (130-400); RED CELL DISTRIBUTION WIDTH CV 14.5 % (11.5-14.5); WHITE BLOOD COUNT 8.33 K/uL (4.8-10.8)
[2017-10-26 08:07] LABS: CALCIUM 9.5 mg/dl (8.5-10.1); CREATININE 1.26 mg/dl (0.60-1.40); POTASSIUM 3.8 mmol/L (3.5-5.1)
[2017-10-26] MEDS: BUDESONIDE/FORMOTEROL FUMARATE 160/4.5 60 PUFFS/INHALER INH SCH ×2 (08:11→20:30)
[2017-10-26] MEDS: SPIRONOLACTONE 25 MG TAB PO SCH (08:13)
[2017-10-26] MEDS: FUROSEMIDE INJ 40 MG in SYRINGE 0 ML IV SCH (08:13)
[2017-10-26] MEDS: CeleBREX 200 MG CAP PO SCH (08:14)
[2017-10-26] MEDS: FLUOXETINE HCL 20 MG CAP PO SCH ×2 (08:14→20:29)
[2017-10-26] MEDS: ATORVASTATIN 20 MG TAB PO SCH (08:15)
[2017-10-26] MEDS: ENOXAPARIN 40 MG/0.4 ML SYR SQ SCH (08:15)
[2017-10-26] MEDS: ASPIRIN 81 MG ECTAB PO SCH (08:15)
[2017-10-26] MEDS: FERROUS GLUCONATE 324 MG TAB PO SCH ×2 (08:16→20:29)
[2017-10-26] MEDS: CARVEDILOL 12.5 MG TAB PO SCH ×2 (08:16→20:29)
[2017-10-26] MEDS: PANTOprazole INJ 40 MG in SYRINGE 0 ML IV SCH (11:00)
[2017-10-26] MEDS ORDERED: FUROSEMIDE INJ 40 MG in SYRINGE 0 ML IV ONE (11:45)
[2017-10-26] MEDS ORDERED: POTASSIUM CHLORIDE 10 MEQ TABCR PO ONE (11:45)
--- NOTE | 2017-10-26 13:26 | CARDIOLOGY PROGRESS NOTE ---
DATE: 10/26/2017 CARDIOLOGY CONSULTATION FOLLOWUP NOTE The patient was seen and examined. Chart, medications, and telemetry were reviewed. SUBJECTIVE: The patient feels improved. Lower extremities feel less edematous. He feels less breathless, although weight is equivocal as to whether there has been a change overnight though there is notable substantial change since initial hospitalization. He notes no fevers, chills or productive cough. Notes no chest pains. Has a chronic nagging cough, which is summarized in the past. OBJECTIVE: VITAL SIGNS: Heart rate is 82 and blood pressure is 122/83. NECK: Thick. There is no distinct jugular venous distention. LUNGS: Reveal diminished breath sounds diffusely. There is less wheezing. CARDIOVASCULAR: Regular. There is no S3 gallop. ABDOMEN: Soft and obese. EXTREMITIES: Reveal 2+ lower extremity edema. LABORATORY STUDIES: Sodium is 140, potassium is 3.8, chloride is 103, bicarbonate is 31, BUN is 20, and creatinine is 1.26. Nocturnal oximetry last night demonstrated evidence of intermittent desaturation. IMPRESSION: A 72-year-old male presents with decompensated right sided/diastolic heart failure in the setting of preserved hyperdynamic ejection fraction. The patient is responding to IV diuretics. We will increase dosing to 80 mg twice per day. Holding a.m. dose until further assessment. Potassium will be supplemented today. Nocturnal oximetry demonstrates significant desaturation at night stressing the need for nocturnal oxygen supplementation if not resumption of CPAP. Pulmonary issues are driving current complaints.
--- NOTE | 2017-10-26 16:31 | Medical Student: [facility] ---
Med Student Progress Note Date of Service Oct 26, 2017. Subjective Pt evaluation today including: conversation w/ patient, physical exam, chart review, lab review Pt is a 72 yo M with hx notable for right sided CHF, diastolic CHF, GERD, and RAMAN who presented with SOB and cough that has been progressively worsening in the past 6 months with rapid progression in the last several weeks. He received lasix twice yesterday and has been feeling progressively better with improvement of the edema and tightness. He currently denies SOB or chest pain. Has good appetite. Review of Systems Constitutional: No fever, No chills Eyes: No worsening of vision ENT: No hearing loss Respiratory: + cough, + dyspnea on exertion Cardiac: + orthopnea, + PND, + edema, No chest pain Abdomen: No pain, No nausea, No vomiting Musculoskeletal: No joint pain, No muscle pain Male : + urinary frequency (likely 2/2 lasix) Neurologic: No memory loss, No paralysis, No weakness, No numbness/tingling Psychiatric: No depression symptoms Heme: No abnormal bleeding/bruising Endo: No fatigue Skin: No rash, No itch Objective Vital Signs Date Time Temp Pulse Resp B/P (MAP) Pulse Ox O2 Delivery O2 Flow Rate FiO2 10/26/17 07:41 36.7 82 18 122/83 (96) 93 Room Air 10/26/17 05:33 94 Room Air 10/26/17 04:00 94 Room Air 10/26/17 03:46 36.6 81 20 129/82 (98) 94 Nasal Cannula 10/26/17 00:01 96 Room Air 10/25/17 23:37 37.2 88 19 127/82 (97) 96 Room Air 10/25/17 20:00 Room Air 10/25/17 19:25 36.6 89 20 141/91 (108) 96 Room Air 10/25/17 16:36 36.2 82 20 139/90 (106) 94 Room Air 10/25/17 16:00 Room Air 10/25/17 12:00 Room Air 10/25/17 11:19 36.8 80 18 124/79 (94) 91 Room Air Physical Exam General Appearance: WD/WN, no apparent distress Eyes: bilateral eyes normal inspection, bilateral eyes PERRL, bilateral eyes EOMI ENT: normal ENT inspection, hearing grossly normal Neck: supple, no adenopathy, no JVD Respiratory/Chest: chest non-tender, lungs clear (no crackles noted today on examination), normal breath sounds Cardiovascular: regular rate, rhythm, no JVD, no murmur Abdomen: normal bowel sounds, non tender, soft, + distended Extremities: normal range of motion, non-tender, normal inspection, no pedal edema Neurologic/Psychiatric: tire retreader II-XII nml as tested, alert, normal mood/affect, oriented x 3 Skin: normal color, warm/dry, no rash Laboratory Results Last 24 Hours Test 10/25/17 11:18 10/25/17 15:52 10/26/17 06:54 Urine Color YELLOW Urine Appearance CLEAR Urine pH 5.5 Urine Specific [place] 1.014 Urine Protein NEG Urine Glucose (UA) NEG Urine Ketones NEG Urine Occult Blood NEG Urine Nitrite NEG Urine Bilirubin NEG Urine Urobilinogen NEG Urine Leukocyte Esterase NEG Urine WBC (Auto) 0 /hpf Urine RBC (Auto) 0-4 /hpf Urine Hyaline Casts (Auto) 1-5 /lpf Urine Epithelial Cells (Auto) 0-5 /lpf Urine Bacteria (Auto) NEG Troponin I < 0.015 ng/ml White Blood Count 8.33 K/uL Red Blood Count 4.63 M/uL Hemoglobin 13.9 g/dL Hematocrit 44.3 % Mean Corpuscular Volume 95.7 fL Mean Corpuscular Hemoglobin 30.0 pg Mean Corpuscular Hemoglobin Concent 31.4 g/dl Platelet Count 201 K/uL Mean Platelet Volume 10.0 fL Neutrophils (%) (Auto) 38.8 % Lymphocytes (%) (Auto) 44.1 % Monocytes (%) (Auto) 10.7 % Eosinophils (%) (Auto) 5.2 % Basophils (%) (Auto) 0.5 % Neutrophils # (Auto) 3.24 K/uL Lymphocytes # (Auto) 3.67 K/uL Monocytes # (Auto) 0.89 K/uL Eosinophils # (Auto) 0.43 K/uL Basophils # (Auto) 0.04 K/uL RDW Standard Deviation 50.0 fL RDW Coefficient of Variation 14.5 % Immature Granulocyte % (Auto) 0.7 % Immature Granulocyte # (Auto) 0.06 K/uL Sodium Level 140 mmol/L Potassium Level 3.8 mmol/L Chloride Level 103 mmol/L Carbon Dioxide Level 31 mmol/L Anion Gap 6.0 mmol/L Blood Urea Nitrogen 20 mg/dl Creatinine 1.26 mg/dl Est Creatinine Clear Calc Drug Dose 74.7 ml/min Estimated GFR () 66.5 Estimated GFR (Non- 57.4 BUN/Creatinine Ratio 15.6 Random Glucose 166 mg/dl Calcium Level 9.5 mg/dl Medications Current Inpatient Medications Medications (Trade) Dose Ordered Sig/Andrew Route Start Time Stop Time Status Last Admin Dose Admin Acetaminophen (Tylenol Tab) 650 mg Q4H PRN PO 10/24/17 22:00 11/23/17 21:59 10/25/17 22:15 650 MG Magnesium Hydroxide (Milk Of Magnesia Susp) 30 ml Q12H PRN PO 10/24/17 22:00 11/23/17 21:59 Ondansetron HCl (Zofran Inj) 4 mg Q6H PRN IV 10/24/17 22:00 11/23/17 21:59 Nitroglycerin (Nitrostat Tab) 0.4 mg UD PRN SL 10/24/17 22:00 11/23/17 21:59 Aspirin (Ecotrin Tab) 81 mg DAILY PO 10/25/17 09:00 11/24/17 08:59 10/26/17 08:15 81 MG Atorvastatin Calcium (Lipitor Tab) 20 mg DAILY PO 10/25/17 09:00 11/24/17 08:59 10/26/17 08:15 20 MG Bumetanide (Bumex Tab) 3 mg DAILY PO 10/25/17 09:00 11/24/17 08:59 Future Hold 10/25/17 08:17 3 MG Carvedilol (Coreg Tab) 12.5 mg BID PO 10/25/17 09:00 11/24/17 08:59 10/26/17 08:16 12.5 MG Celecoxib (CeleBREX CAP) 200 mg DAILY PO 10/25/17 09:00 11/24/17 08:59 10/26/17 08:14 200 MG Ferrous Gluconate (Ferrous Gluconate Tab) 324 mg BID PO 10/25/17 09:00 11/24/17 08:59 10/26/17 08:16 324 MG Fluoxetine HCl (Prozac Cap) 20 mg BID PO 10/25/17 09:00 11/24/17 08:59 10/26/17 08:14 20 MG Miscellaneous Information (Order Awaiting Action) 1 ea QS N/A 10/25/17 00:00 11/24/17 00:00 Future Hold Spironolactone (Aldactone Tab) 25 mg QAM PO 10/25/17 09:00 11/24/17 08:59 10/26/17 08:13 25 MG Pantoprazole Sodium 40 mg/ Syringe 10 ml @ 5 mls/min DAILY@11 IV 10/25/17 11:00 11/24/17 10:59 10/25/17 08:15 5 MLS/MIN Budesonide/ Formoterol Fumarate (Symbicort 160/ 4.5 Inh) 2 puffs BID INH 10/25/17 21:00 11/24/17 20:59 10/26/17 08:11 2 PUFFS Enoxaparin Sodium (Lovenox Inj) 40 mg QAM SQ 10/26/17 09:00 11/25/17 08:59 10/26/17 08:15 40 MG Furosemide 40 mg/ Syringe 4 ml @ 4 mls/min BID17 IV 10/25/17 17:00 11/24/17 08:59 10/26/17 08:13 4 MLS/MIN Assessment and Plan Assessment and Plan: Pt is a 72 yo M who presented with 6 mo hx of progressively worsening (most noticeable in the past few weeks) SOB and dry cough. Hx notable for R sided heart failure and diastolic heart failure, GERD, and RAMAN. CHF Exacerbation - 20 lb weight gain in the past 6 months - Given lasix 40mg at the ED. Received lasix twice yesterday, and got one dose already today. Next dose increased to 80mg due to 1lb weight gain - Daily weights. Pt reported dry weight: 270 lbs - Cardiology consult with Dr. Griffin obtained, input appreciated - pt has biventricular heart failure, R worse than L. R sided symptoms appears to be 2/2 RAMAN and obesity - Agree with plan for IV diuretics - IV furosemide BID and follow output - Continue carvedilol, potassium (Klor-Con), and spironolactone - ECHO done shows EF 65 - 70% with Grade I diastolic dysfunction (abnormal relaxation pattern) compared to previous one showing EF 65 - 69 % in 2010 - PRN supplemental O2 Edema - Like 2/2 right sided CHF - Perform UA to assess for proteinuria: Urine Protein NEG HTN - Carvedilol, spironolactone RAMAN - Not on CPAP as an outpatient. - Set up CPAP CAD - Aspirin, carvedilol, statin GERD - Pantoprazole Hyperglycemia - No previous diagnosis of DM - HbA1c found to be 7.1 - Consider outpatient metformin VTE Prophylaxis - SCDs - Lovenox 40 mg SQ q daily Code - Full
[2017-10-26] MEDS: FUROSEMIDE INJ 80 MG in SYRINGE 0 ML IV SCH (17:03)
--- NOTE | 2017-10-26 20:44 | Family Medicine Progress Note ---
Progress Note Date of Service Oct 26, 2017. Subjective Pt evaluation today including: conversation w/ patient, physical exam, chart review, lab review, review of studies, review of inpatient medication list Patient improving but does not feel completely back to baseline. Denies any chest pain, palpitations and leg swelling is improving. Constitutional: No fever, No chills All Other Systems: Reviewed and Negative Medications Current Inpatient Medications Medications (Trade) Dose Ordered Sig/Andrew Route Start Time Stop Time Status Last Admin Dose Admin Acetaminophen (Tylenol Tab) 650 mg Q4H PRN PO 10/24/17 22:00 11/23/17 21:59 10/25/17 22:15 650 MG Magnesium Hydroxide (Milk Of Magnesia Susp) 30 ml Q12H PRN PO 10/24/17 22:00 11/23/17 21:59 Ondansetron HCl (Zofran Inj) 4 mg Q6H PRN IV 10/24/17 22:00 11/23/17 21:59 Nitroglycerin (Nitrostat Tab) 0.4 mg UD PRN SL 10/24/17 22:00 11/23/17 21:59 Aspirin (Ecotrin Tab) 81 mg DAILY PO 10/25/17 09:00 11/24/17 08:59 10/26/17 08:15 81 MG Atorvastatin Calcium (Lipitor Tab) 20 mg DAILY PO 10/25/17 09:00 11/24/17 08:59 10/26/17 08:15 20 MG Bumetanide (Bumex Tab) 3 mg DAILY PO 10/25/17 09:00 11/24/17 08:59 Future Hold 10/25/17 08:17 3 MG Carvedilol (Coreg Tab) 12.5 mg BID PO 10/25/17 09:00 11/24/17 08:59 10/26/17 08:16 12.5 MG Celecoxib (CeleBREX CAP) 200 mg DAILY PO 10/25/17 09:00 11/24/17 08:59 10/26/17 08:14 200 MG Ferrous Gluconate (Ferrous Gluconate Tab) 324 mg BID PO 10/25/17 09:00 11/24/17 08:59 10/26/17 08:16 324 MG Fluoxetine HCl (Prozac Cap) 20 mg BID PO 10/25/17 09:00 11/24/17 08:59 10/26/17 08:14 20 MG Miscellaneous Information (Order Awaiting Action) 1 ea QS N/A 10/25/17 00:00 11/24/17 00:00 Future Hold Spironolactone (Aldactone Tab) 25 mg QAM PO 10/25/17 09:00 11/24/17 08:59 10/26/17 08:13 25 MG Pantoprazole Sodium 40 mg/ Syringe 10 ml @ 5 mls/min DAILY@11 IV 10/25/17 11:00 11/24/17 10:59 10/26/17 11:00 5 MLS/MIN Budesonide/ Formoterol Fumarate (Symbicort 160/ 4.5 Inh) 2 puffs BID INH 10/25/17 21:00 11/24/17 20:59 10/26/17 08:11 2 PUFFS Enoxaparin Sodium (Lovenox Inj) 40 mg QAM SQ 10/26/17 09:00 11/25/17 08:59 10/26/17 08:15 40 MG Furosemide 80 mg/ Syringe 8 ml @ 4 mls/min BID17 IV 10/26/17 17:00 11/25/17 16:59 10/26/17 17:03 4 MLS/MIN Objective Vital Signs Date Time Temp Pulse Resp B/P (MAP) Pulse Ox O2 Delivery O2 Flow Rate FiO2 10/26/17 20:01 93 Room Air 2.0 99 10/26/17 19:57 36.8 87 20 127/79 (95) 92 Room Air 10/26/17 16:26 93 Room Air 2.0 99 10/26/17 15:54 36.7 87 20 113/71 (85) 93 Room Air 10/26/17 12:00 Room Air 10/26/17 11:10 36.7 93 18 139/80 (99) 91 Room Air 10/26/17 08:00 93 Room Air 10/26/17 07:41 36.7 82 18 122/83 (96) 93 Room Air 10/26/17 05:33 94 Room Air 10/26/17 04:00 94 Room Air 10/26/17 03:46 36.6 81 20 129/82 (98) 94 Nasal Cannula 10/26/17 00:01 96 Room Air 10/25/17 23:37 37.2 88 19 127/82 (97) 96 Room Air Physical Exam General Appearance: no apparent distress, + obese Neck: supple, no JVD, trachea midline Respiratory/Chest: lungs clear, normal breath sounds, no respiratory distress, no accessory muscle use Cardiovascular: regular rate, rhythm, no murmur Abdomen: normal bowel sounds, non tender, soft Extremities: + pedal edema Laboratory Results 10/26/17 06:54 Red Blood Count 4.63, Mean Corpuscular Volume 95.7, Mean Corpuscular Hemoglobin 30.0, Mean Corpuscular Hemoglobin Concent 31.4, Mean Platelet Volume 10.0, Neutrophils (%) (Auto) 38.8, Lymphocytes (%) (Auto) 44.1, Monocytes (%) (Auto) 10.7, Eosinophils (%) (Auto) 5.2, Basophils (%) (Auto) 0.5, Neutrophils # (Auto ) 3.24, Lymphocytes # (Auto) 3.67, Monocytes # (Auto) 0.89, Eosinophils # (Auto ) 0.43, Basophils # (Auto) 0.04 10/26/17 06:54 Test 10/26/17 06:54 White Blood Count 8.33 K/uL (4.8-10.8) Red Blood Count 4.63 M/uL (4.7-6.1) Hemoglobin 13.9 g/dL (14.0-18.0) Hematocrit 44.3 % (42-52) Mean Corpuscular Volume 95.7 fL (80-100) Mean Corpuscular Hemoglobin 30.0 pg (25-34) Mean Corpuscular Hemoglobin Concent 31.4 g/dl (32-36) Platelet Count 201 K/uL (130-400) Mean Platelet Volume 10.0 fL (7.4-10.4) Neutrophils (%) (Auto) 38.8 % Lymphocytes (%) (Auto) 44.1 % Monocytes (%) (Auto) 10.7 % Eosinophils (%) (Auto) 5.2 % Basophils (%) (Auto) 0.5 % Neutrophils # (Auto) 3.24 K/uL (1.4-6.5) Lymphocytes # (Auto) 3.67 K/uL (1.2-3.4) Monocytes # (Auto) 0.89 K/uL (0.11-0.59) Eosinophils # (Auto) 0.43 K/uL (0-0.5) Basophils # (Auto) 0.04 K/uL (0-0.2) RDW Standard Deviation 50.0 fL (36.4-46.3) RDW Coefficient of Variation 14.5 % (11.5-14.5) Immature Granulocyte % (Auto) 0.7 % Immature Granulocyte # (Auto) 0.06 K/uL (0.00-0.02) Anion Gap 6.0 mmol/L (3-11) Est Creatinine Clear Calc Drug Dose 74.7 ml/min Estimated GFR () 66.5 Estimated GFR (Non- 57.4 BUN/Creatinine Ratio 15.6 (10-20) Calcium Level 9.5 mg/dl (8.5-10.1) Assessment and Plan 72 year old male with restrictive cardiomyopathy, GERD, and obstructive sleep apnea that presents with progressively worsening shortness of breath and chronic cough. Improving with IV lasix Acute Diastolic CHF Exacerbation - Biventricular R >L - Lasix to be dosed per cardiology recommendations - I/O and daily weights - he reports his dry weight as 270lb - Appreciate Dr Griffin's management - Supplemental oxygen as needed to maintain SpO2 > 92% (not on oxygen at baseline) - Klor-Con 20meq daily - Continue outpatient Spironolactone and metolazone Obesity hypoventilation syndrome with morbid obesity / Obstructive sleep apnea - outpatient follow up as patient not on CPAP at home - significant nocturnal hypoxia, will trial CPAP tonight but will need repeat sleep study as outpatient for longer term use Hypertension - Continue carvedilol, spironolactone and metolazone - Lasix as above Hyperlipidemia - Continue Lipitor. Will discuss increasing dose given ASCVD 10 year risk of 26.7%, despite decent LDL. Nonobstructive CAD on last C / Hypertension - Aspirin, carvedilol, atorvastatin - given diabetes he would also benefit from a statin if BP able to tolerate - Serial troponin negative GERD - Continue pantoprazole PO - possible etiology of his chronic cough - follow up with PCP Hyperglycemia - No history of Diabetes - HbA1c 7.1 - will need outpatient follow up - consider metformin on discharge, will treat with insulin PRN here Obstructive lung disease - last PFT from 2014 with moderate mixed restrictive and obstructive disease (previously reversible with bronchodilator) - has PRN Symbicort outpatient medication, will give scheduled here to see if help with his cough - follow up with PCP for longer term management VTE prophylaxis - SCDs - lovenox 40 mg SQ daily Code - Full Disposition - Can be transferred to med/surg. Aim discharge home tomorrow Reviewed: Pt Seen/Exam by Me History breathing better Constitutional: denies: fever Cardiovascular: denies chest pain Gastrointestinal/Abdominal: negative: abdominal pain General Appearance: no apparent distress Respiratory: no respiratory distress, decreased breath sounds Cardiovascular: regular rate, rhythm Neurologic/Psychiatric: alert, oriented x 3 Skin Characteristics: warm/dry Assessment/Plan Resident Physician Supervision Note: I independently interviewed and examined the patient and verified the velazquez history and physical, reviewed labs and image studies, discussed the case with the resident Dr. Martins and agree with the findings and care plan.
[2017-10-26] MEDS: INSULIN ASPART 100 UNITS/ML 3 ML PEN SC SCH (21:00)
[2017-10-26] MEDS ORDERED: GLUCOSE 40% GEL 15 GM TUBE PO PRN (21:30)
[2017-10-26] MEDS ORDERED: GLUCOSE 10 TABS/TUBE PO PRN (21:30)
[2017-10-26] MEDS ORDERED: GLUCAGON FOR INJ 1 MG VIAL SQ PRN (21:30)
[2017-10-26] MEDS ORDERED: DEXTROSE 50% 50 ML SYR IV PRN (21:30)
[2017-10-27] MEDS: INSULIN ASPART 100 UNITS/ML 3 ML PEN SC SCH (06:30)
[2017-10-27 07:12] VITALS: BP 174/80; PULSE 60; TEMP 36.8; O2SAT 97
[2017-10-27 07:13] VITALS: BP 136/90; PULSE 82; TEMP 36.7; O2SAT 93
[2017-10-27] MEDS: SPIRONOLACTONE 25 MG TAB PO SCH ×2 (07:40→20:34)
[2017-10-27] MEDS: BUDESONIDE/FORMOTEROL FUMARATE 160/4.5 60 PUFFS/INHALER INH SCH ×2 (07:40→20:34)
[2017-10-27] MEDS: CeleBREX 200 MG CAP PO SCH (07:41)
[2017-10-27] MEDS: FERROUS GLUCONATE 324 MG TAB PO SCH ×2 (07:41→20:35)
[2017-10-27] MEDS: FLUOXETINE HCL 20 MG CAP PO SCH ×2 (07:42→20:35)
[2017-10-27] MEDS: ATORVASTATIN 20 MG TAB PO SCH (07:42)
[2017-10-27] MEDS: CARVEDILOL 12.5 MG TAB PO SCH ×2 (07:42→20:35)
[2017-10-27] MEDS: ASPIRIN 81 MG ECTAB PO SCH (07:42)
[2017-10-27] MEDS: ENOXAPARIN 40 MG/0.4 ML SYR SQ SCH (07:42)
[2017-10-27] MEDS: FUROSEMIDE INJ 80 MG in SYRINGE 0 ML IV SCH ×2 (08:48→17:00)
[2017-10-27 08:59] LABS: CALCIUM 9.6 mg/dl (8.5-10.1); CREATININE 1.11 mg/dl (0.60-1.40)
--- NOTE | 2017-10-27 09:49 | PROGRESS NOTE ---
DATE: 10/27/2017 The patient seen and examined. Chart, medications, laboratory studies reviewed. SUBJECTIVE: The patient feels improved this morning, did demonstrate significant diuresis yesterday. Weight is pending. Notes slight abdominal girth and lower extremity edema has diminished. Notes no syncope or near syncope. Notes no chest pain or discomfort. He is now ambulatory in room. OBJECTIVE: VITAL SIGNS: Heart rate is 82. Blood pressure is 136/90, O2 saturation is 93% on room air. NECK: Thick. There is no distinct jugular venous distention. LUNGS: Reveal diminished breath sounds with few scattered wheezes. CARDIOVASCULAR: Regular. There is no S3 gallop. ABDOMEN: Soft, nontender. There is no palpable hepatosplenomegaly. There is large panniculus. EXTREMITIES: Reveal 1-2+ lower extremity edema, both substantially improved. LABORATORY DATA: Sodium is 138, potassium is 4.0, chloride is 102, bicarbonate is 33, BUN is 20, creatinine is 1.1. IMPRESSION: A 72-year-old male with a history of diastolic heart failure, chronic obstructive lung disease, sleep apnea, admitted with decompensated acute on chronic heart failure, clinically improving with IV diuretics. We will continue current dosing of furosemide as ordered at 80 mg twice per day. Holding dose tomorrow morning until reevaluated. Electrolytes and renal function are being maintained. He has manifested generally good diuresis. RECOMMENDATIONS: Continue therapies and augment CPAP or oxygen at night as well as course of care.
--- NOTE | 2017-10-27 10:23 | Family Medicine Progress Note ---
Progress Note Date of Service Oct 27, 2017. Subjective Pt evaluation today including: conversation w/ patient, physical exam, chart review, lab review, review of studies, review of inpatient medication list Patient not yet back to baseline. Having some shortness of breath on exertion. All Other Systems: Reviewed and Negative Medications Current Inpatient Medications Medications (Trade) Dose Ordered Sig/Andrew Route Start Time Stop Time Status Last Admin Dose Admin Acetaminophen (Tylenol Tab) 650 mg Q4H PRN PO 10/24/17 22:00 11/23/17 21:59 10/25/17 22:15 650 MG Magnesium Hydroxide (Milk Of Magnesia Susp) 30 ml Q12H PRN PO 10/24/17 22:00 11/23/17 21:59 Ondansetron HCl (Zofran Inj) 4 mg Q6H PRN IV 10/24/17 22:00 11/23/17 21:59 Nitroglycerin (Nitrostat Tab) 0.4 mg UD PRN SL 10/24/17 22:00 11/23/17 21:59 Aspirin (Ecotrin Tab) 81 mg DAILY PO 10/25/17 09:00 11/24/17 08:59 10/27/17 07:42 81 MG Atorvastatin Calcium (Lipitor Tab) 20 mg DAILY PO 10/25/17 09:00 11/24/17 08:59 10/27/17 07:42 20 MG Bumetanide (Bumex Tab) 3 mg DAILY PO 10/25/17 09:00 11/24/17 08:59 Future Hold 10/25/17 08:17 3 MG Carvedilol (Coreg Tab) 12.5 mg BID PO 10/25/17 09:00 11/24/17 08:59 10/27/17 07:42 12.5 MG Celecoxib (CeleBREX CAP) 200 mg DAILY PO 10/25/17 09:00 11/24/17 08:59 10/27/17 07:41 200 MG Ferrous Gluconate (Ferrous Gluconate Tab) 324 mg BID PO 10/25/17 09:00 11/24/17 08:59 10/27/17 07:41 324 MG Fluoxetine HCl (Prozac Cap) 20 mg BID PO 10/25/17 09:00 11/24/17 08:59 10/27/17 07:42 20 MG Miscellaneous Information (Order Awaiting Action) 1 ea QS N/A 10/25/17 00:00 11/24/17 00:00 Future Hold Spironolactone (Aldactone Tab) 25 mg QAM PO 10/25/17 09:00 11/24/17 08:59 10/27/17 07:40 25 MG Pantoprazole Sodium 40 mg/ Syringe 10 ml @ 5 mls/min DAILY@11 IV 10/25/17 11:00 11/24/17 10:59 10/26/17 11:00 5 MLS/MIN Budesonide/ Formoterol Fumarate (Symbicort 160/ 4.5 Inh) 2 puffs BID INH 10/25/17 21:00 11/24/17 20:59 10/27/17 07:40 2 PUFFS Enoxaparin Sodium (Lovenox Inj) 40 mg QAM SQ 10/26/17 09:00 11/25/17 08:59 10/27/17 07:42 40 MG Furosemide 80 mg/ Syringe 8 ml @ 4 mls/min BID17 IV 10/26/17 17:00 11/25/17 16:59 10/27/17 08:48 4 MLS/MIN Glucose (Glucose 40% Gel) 15-30 GRAMS 15 GRAMS... UD PRN PO 10/26/17 21:30 11/25/17 21:29 Glucose (Glucose Chew Tab) 4-8 Tablets 4 Tabl... UD PRN PO 10/26/17 21:30 11/25/17 21:29 Dextrose (Dextrose 50% 50ML Syringe) 25-50ML OF 50% DW IV FOR... UD PRN IV 10/26/17 21:30 11/25/17 21:29 Glucagon (Glucagon Inj) 1 mg UD PRN SQ 10/26/17 21:30 11/25/17 21:29 Metformin HCl (Glucophage Tab) 500 mg QAM PO 10/28/17 08:00 11/27/17 07:59 UNV Metformin HCl (Glucophage Tab) 500 mg 1004 ONCE PO 10/27/17 10:04 10/27/17 10:05 UNV Objective Vital Signs Date Time Temp Pulse Resp B/P (MAP) Pulse Ox O2 Delivery O2 Flow Rate FiO2 10/27/17 07:20 Room Air 10/27/17 07:13 36.7 82 20 136/90 (105) 93 Room Air 10/26/17 23:59 95 Room Air 10/26/17 23:55 36.7 84 20 116/76 (89) 95 Room Air 10/26/17 22:52 36.8 87 20 93 10/26/17 20:01 93 Room Air 2.0 99 10/26/17 19:57 36.8 87 20 127/79 (95) 92 Room Air 10/26/17 16:26 93 Room Air 2.0 99 10/26/17 15:54 36.7 87 20 113/71 (85) 93 Room Air 10/26/17 12:00 Room Air 10/26/17 11:10 36.7 93 18 139/80 (99) 91 Room Air Physical Exam General Appearance: no apparent distress Neck: supple, no JVD Respiratory/Chest: lungs clear, normal breath sounds, no respiratory distress, no accessory muscle use Cardiovascular: regular rate, rhythm, no edema, no murmur Abdomen: normal bowel sounds, non tender, soft Extremities: no calf tenderness, + pedal edema (1+ bilateral to knees) Neurologic/Psychiatric: no motor/sensory deficits (grossly normal), alert, oriented x 3 Skin: normal color, warm/dry, no rash Laboratory Results 10/27/17 08:07 Test 10/27/17 07:43 10/27/17 08:07 Bedside Glucose 124 mg/dl (70-99) Anion Gap 4.0 mmol/L (3-11) Est Creatinine Clear Calc Drug Dose 84.8 ml/min Estimated GFR () 77.6 Estimated GFR (Non- 66.9 BUN/Creatinine Ratio 18.0 (10-20) Calcium Level 9.6 mg/dl (8.5-10.1) Assessment and Plan 72 year old male with restrictive cardiomyopathy, GERD, and obstructive sleep apnea that presents with progressively worsening shortness of breath and chronic cough. Improving with IV lasix Acute Diastolic CHF Exacerbation - Biventricular R >L - Lasix to be dosed per cardiology recommendations - continue 80mg IV BID as per Dr Griffin's recommendations - I/O and daily weights - he reports his dry weight as 270lb - Nocturnal O2 to maintain sats > 94% - Continue outpatient Spironolactone and metolazone Obesity hypoventilation syndrome with morbid obesity / Obstructive sleep apnea - patient has old CPAP at home and will follow up - nocturnal O2 while in hospital to maintain sats > 94% Hypertension - Continue carvedilol, spironolactone and metolazone - Lasix as above - defer ACEi to outpatient given well controlled BP and need to maintain BP and good kidney function with higher lasix dosing Hyperlipidemia - Increase atorvastatin to high intensity given ASCVD 10 year risk of 26.7%, despite decent LDL. - Atorvastatin 20 -> 40mg daily Nonobstructive CAD on last LHC / Hypertension - Aspirin, carvedilol, atorvastatin - Serial troponin negative GERD - Continue pantoprazole PO - possible etiology of his chronic cough - follow up with PCP Type 2 diabetes mellitus - based on HbA1c 7.1 - Patient refusing insulin SS, therefore will start metformin 500mg QAM - need to follow up with PCP Obstructive lung disease - last PFT from 2014 with moderate mixed restrictive and obstructive disease (previously reversible with bronchodilator) - has PRN Symbicort outpatient medication, will give scheduled here to see if help with his cough - follow up with PCP VTE prophylaxis - SCDs - lovenox 40 mg SQ daily Code - Full Disposition - Continue on med/surg due to need for IV diuretics Resident Tracking Resident Involvement: Resident Care Provided Care Provided: Adult Hospital Medicine Reviewed: Pt Seen/Exam by Me History continuing to urinate well Constitutional: denies: fever Respiratory: negative: short of breath Cardiovascular: denies chest pain General Appearance: no apparent distress Respiratory: lungs clear, no respiratory distress Cardiovascular: regular rate, rhythm Neurologic/Psychiatric: alert, oriented x 3 Skin Characteristics: warm/dry Assessment/Plan Resident Physician Supervision Note: I independently interviewed and examined the patient and verified the velazquez history and physical, reviewed labs and image studies, discussed the case with the resident Dr. Martins and agree with the findings and care plan.
[2017-10-27] MEDS ORDERED: METFORMIN HCL 500 MG TAB PO ONE (10:45)
[2017-10-27] MEDS: PANTOprazole INJ 40 MG in SYRINGE 0 ML IV SCH (10:46)
[2017-10-27 14:48] VITALS: BP 116/77; PULSE 85; TEMP 36.7; O2SAT 94
[2017-10-27 16:00] VITALS: O2SAT 94
[2017-10-27 20:31] VITALS: BP 133/80; PULSE 91; O2SAT 94
[2017-10-27 23:51] VITALS: BP 133/79; PULSE 88; TEMP 36.7; O2SAT 97
[2017-10-28 07:43] VITALS: BP 140/89; PULSE 82; TEMP 36.7; O2SAT 95
[2017-10-28] MEDS: ENOXAPARIN 40 MG/0.4 ML SYR SQ SCH (07:45)
[2017-10-28] MEDS: METFORMIN HCL 500 MG TAB PO SCH (07:46)
[2017-10-28] MEDS: ASPIRIN 81 MG ECTAB PO SCH (07:46)
[2017-10-28] MEDS: FERROUS GLUCONATE 324 MG TAB PO SCH ×2 (07:46→20:27)
[2017-10-28] MEDS: BUDESONIDE/FORMOTEROL FUMARATE 160/4.5 60 PUFFS/INHALER INH SCH ×2 (07:46→20:28)
[2017-10-28] MEDS: CARVEDILOL 12.5 MG TAB PO SCH ×2 (07:46→20:27)
[2017-10-28] MEDS: ATORVASTATIN 40 MG TAB PO SCH (07:46)
[2017-10-28] MEDS: FLUOXETINE HCL 20 MG CAP PO SCH ×2 (07:46→20:28)
[2017-10-28] MEDS: CeleBREX 200 MG CAP PO SCH (07:46)
[2017-10-28] MEDS: FUROSEMIDE INJ 80 MG in SYRINGE 0 ML IV SCH ×2 (08:54→17:25)
[2017-10-28 10:01] LABS: CALCIUM 9.8 mg/dl (8.5-10.1); CREATININE 1.3 mg/dl (0.60-1.40)
[2017-10-28] MEDS: PANTOprazole INJ 40 MG in SYRINGE 0 ML IV SCH (10:39)
--- NOTE | 2017-10-28 10:45 | PROGRESS NOTE ---
DATE: 10/28/2017 The patient seen and examined. Chart, medications, laboratory studies reviewed. SUBJECTIVE: The patient feels somewhat improved. Lower extremity edema is better. He has demonstrated persistent diuresis, though weight is minimally changed. Notes no chest pains, tachypalpitations, dizziness or lightheadedness. Notes no orthopnea. OBJECTIVE: VITAL SIGNS: Heart rate is 82. Blood pressure is 140/89. HEENT: Normocephalic and atraumatic. Nares without discharge. Throat is clear. NECK: Supple without thyromegaly, lymphadenopathy. There is no distinct jugular venous distention. CARDIOVASCULAR: Regular. There is no S3 gallop. ABDOMEN: Soft. EXTREMITIES: Reveal improving edema though still persistent 1+ edema. LABORATORY STUDIES: Sodium is 135, potassium is 4.0, chloride is 100, bicarbonate is 29, BUN is 20, creatinine is 1.3. IMPRESSION: Chronic diastolic heart failure with acute decompensation, obstructive sleep apnea, pickwickian phenomena. RECOMMENDATIONS: We will give single dose of metolazone prior to IV furosemide this evening, hold furosemide and likely resume oral dosing of diuretic in a.m. depending on clinical response. All the medications will be continued as planned.
--- NOTE | 2017-10-28 13:41 | Family Medicine Progress Note ---
Progress Note Date of Service Oct 28, 2017. Subjective Pt evaluation today including: conversation w/ patient, physical exam, chart review, lab review Pain: None PO Intake: Normal Voiding: no voiding problems No issues at this time Notes he is starting to feel better; still has some orthopnea at nighttime; was using CPAP Urinated well after morning diuresis No acute events overnight; no nursing concerns Constitutional: No fever, No chills, No sweats Eyes: No redness, No discharge ENT: No nasal symptoms, No sore throat Respiratory: No cough, No sputum, No wheezing, No hemoptysis Cardiovascular: + orthopnea, No chest pain, No palpitations Abdomen: No pain, No nausea, No vomiting, No diarrhea Musculoskeletal: No joint pain, No muscle pain Male : No dysuria, No urinary frequency, No incontinence Neurologic: No weakness, No numbness/tingling, No vertigo Psychiatric: No depression symptoms, No anxiety, No insomnia Heme: No clotting problems, No swollen lymph nodes, No night sweats Medications Current Inpatient Medications Medications (Trade) Dose Ordered Sig/Andrew Route Start Time Stop Time Status Last Admin Dose Admin Acetaminophen (Tylenol Tab) 650 mg Q4H PRN PO 10/24/17 22:00 11/23/17 21:59 10/25/17 22:15 650 MG Magnesium Hydroxide (Milk Of Magnesia Susp) 30 ml Q12H PRN PO 10/24/17 22:00 11/23/17 21:59 Ondansetron HCl (Zofran Inj) 4 mg Q6H PRN IV 10/24/17 22:00 11/23/17 21:59 Nitroglycerin (Nitrostat Tab) 0.4 mg UD PRN SL 10/24/17 22:00 11/23/17 21:59 Aspirin (Ecotrin Tab) 81 mg DAILY PO 10/25/17 09:00 11/24/17 08:59 10/28/17 07:46 81 MG Bumetanide (Bumex Tab) 3 mg DAILY PO 10/25/17 09:00 11/24/17 08:59 Future Hold 10/25/17 08:17 3 MG Carvedilol (Coreg Tab) 12.5 mg BID PO 10/25/17 09:00 11/24/17 08:59 10/28/17 07:46 12.5 MG Celecoxib (CeleBREX CAP) 200 mg DAILY PO 10/25/17 09:00 11/24/17 08:59 10/28/17 07:46 200 MG Ferrous Gluconate (Ferrous Gluconate Tab) 324 mg BID PO 10/25/17 09:00 11/24/17 08:59 10/28/17 07:46 324 MG Fluoxetine HCl (Prozac Cap) 20 mg BID PO 10/25/17 09:00 11/24/17 08:59 10/28/17 07:46 20 MG Miscellaneous Information (Order Awaiting Action) 1 ea QS N/A 10/25/17 00:00 11/24/17 00:00 Future Hold Spironolactone (Aldactone Tab) 25 mg QAM PO 10/25/17 09:00 11/24/17 08:59 10/27/17 20:34 25 MG Pantoprazole Sodium 40 mg/ Syringe 10 ml @ 5 mls/min DAILY@11 IV 10/25/17 11:00 11/24/17 10:59 10/28/17 10:39 5 MLS/MIN Budesonide/ Formoterol Fumarate (Symbicort 160/ 4.5 Inh) 2 puffs BID INH 10/25/17 21:00 11/24/17 20:59 10/28/17 07:46 2 PUFFS Enoxaparin Sodium (Lovenox Inj) 40 mg QAM SQ 10/26/17 09:00 11/25/17 08:59 10/28/17 07:45 40 MG Furosemide 80 mg/ Syringe 8 ml @ 4 mls/min BID17 IV 10/26/17 17:00 11/25/17 16:59 10/28/17 08:54 4 MLS/MIN Glucose (Glucose 40% Gel) 15-30 GRAMS 15 GRAMS... UD PRN PO 10/26/17 21:30 11/25/17 21:29 Glucose (Glucose Chew Tab) 4-8 Tablets 4 Tabl... UD PRN PO 10/26/17 21:30 11/25/17 21:29 Dextrose (Dextrose 50% 50ML Syringe) 25-50ML OF 50% DW IV FOR... UD PRN IV 10/26/17 21:30 11/25/17 21:29 Glucagon (Glucagon Inj) 1 mg UD PRN SQ 10/26/17 21:30 11/25/17 21:29 Metformin HCl (Glucophage Tab) 500 mg QDB PO 10/28/17 08:00 11/27/17 07:59 10/28/17 07:46 500 MG Atorvastatin Calcium (Lipitor Tab) 40 mg DAILY PO 10/28/17 08:00 11/24/17 08:59 10/28/17 07:46 40 MG Metolazone (Zaroxolyn Tab) 5 mg 1600 PO 10/28/17 16:00 10/28/17 16:01 Objective Vital Signs Date Time Temp Pulse Resp B/P (MAP) Pulse Ox O2 Delivery O2 Flow Rate FiO2 10/28/17 08:00 Room Air 10/28/17 07:43 36.7 82 18 140/89 (106) 95 Room Air 10/28/17 00:00 Nasal Cannula 2.0 10/27/17 23:51 36.7 88 21 133/79 (97) 97 Nasal Cannula 1.0 10/27/17 20:31 91 133/80 (97) 94 Room Air 10/27/17 16:00 94 Room Air 10/27/17 14:48 36.7 85 18 116/77 (90) 94 Room Air Physical Exam General Appearance: WD/WN, no apparent distress Eyes: normal inspection, EOMI ENT: hearing grossly normal, pharynx normal Neck: supple, no adenopathy, no JVD, + pertinent finding (JVD difficult to assess due to body habitus) Respiratory/Chest: lungs clear, no respiratory distress Cardiovascular: regular rate, rhythm, no gallop, no murmur Abdomen: normal bowel sounds, non tender, soft Extremities: non-tender, no pedal edema Neurologic/Psychiatric: alert, normal mood/affect, oriented x 3 Skin: normal color, warm/dry, no rash Lymphatic: no adenopathy Laboratory Results Last 24 Hours Test 10/28/17 09:15 Sodium Level 135 mmol/L Potassium Level 4.0 mmol/L Chloride Level 100 mmol/L Carbon Dioxide Level 29 mmol/L Anion Gap 7.0 mmol/L Blood Urea Nitrogen 20 mg/dl Creatinine 1.30 mg/dl Est Creatinine Clear Calc Drug Dose 72.4 ml/min Estimated GFR () 64.1 Estimated GFR (Non- 55.3 BUN/Creatinine Ratio 15.5 Random Glucose 189 mg/dl Calcium Level 9.8 mg/dl Magnesium Level 2.0 mg/dl Assessment and Plan (1) Acute on chronic diastolic (congestive) heart failure Assessment & Plan: - Weight grossly unchanged according to I/Os once admitted to floor - Symtomatically improving - Cardiology recommendations appreciated - Metolazone added today by cardiology for diuretic augmentation - Cardiology recommendations appreciated. (2) Sleep apnea Assessment & Plan: - Previously on CPAP but stopped due to weight loss; has regained this weight and now requires CPAP again - Patient has CPAP machine at home - Will discuss with respiratory and have CPAP titrated overnight (3) Obesity hypoventilation syndrome Assessment & Plan: - Per nocturnal oximetry report - Requires supplemental O2 at nighttime - Encourage weight loss (4) Type 2 diabetes mellitus Assessment & Plan: - New diagnosis with HbA1c 7.1 - Started on Metformin during this admission - Follow-up with primary care provider for long-term management. (5) Obstructive lung disease Assessment & Plan: - Otherwise unspecified - Continue Symbicort DVT Prophylaxis - SCD Knee - Lovenox 40 mg s.c. daily Code Status - Level I Full Code Disposition - Med/Surg - OT and PT evaluations Continued [facility] stay due to: other (requires augmentation of diuresis) Reviewed: Pt Seen/Exam by Me History denies any complains Constitutional: denies: fever Respiratory: negative: short of breath Cardiovascular: denies chest pain General Appearance: no apparent distress Respiratory: lungs clear, no respiratory distress Cardiovascular: regular rate, rhythm Gastrointestinal: normal bowel sounds, non tender, soft Neurologic/Psychiatric: alert, oriented x 3 Skin Characteristics: warm/dry Assessment/Plan Resident Physician Supervision Note: I independently interviewed and examined the patient and verified the velazquez history and physical, reviewed labs and image studies, discussed the case with the resident Dr. Garcia and agree with the findings and care plan.
[2017-10-28 15:20] VITALS: BP 129/81; PULSE 87; TEMP 36.9; O2SAT 93
[2017-10-28] MEDS ORDERED: METOLAZONE 5 MG TAB PO SCH (16:00)
[2017-10-29 00:22] VITALS: BP 121/80; PULSE 102; TEMP 37.1; O2SAT 95
[2017-10-29 07:27] VITALS: BP 129/80; PULSE 78; TEMP 36.7; O2SAT 93
[2017-10-29] MEDS: BUDESONIDE/FORMOTEROL FUMARATE 160/4.5 60 PUFFS/INHALER INH SCH (07:37)
[2017-10-29] MEDS: ENOXAPARIN 40 MG/0.4 ML SYR SQ SCH (07:38)
[2017-10-29] MEDS: CeleBREX 200 MG CAP PO SCH (07:39)
[2017-10-29] MEDS: FLUOXETINE HCL 20 MG CAP PO SCH (07:39)
[2017-10-29] MEDS: SPIRONOLACTONE 25 MG TAB PO SCH (07:39)
[2017-10-29] MEDS: CARVEDILOL 12.5 MG TAB PO SCH (07:40)
[2017-10-29] MEDS: FERROUS GLUCONATE 324 MG TAB PO SCH (07:40)
[2017-10-29] MEDS: METFORMIN HCL 500 MG TAB PO SCH (07:40)
[2017-10-29] MEDS: ASPIRIN 81 MG ECTAB PO SCH (07:40)
[2017-10-29] MEDS: ATORVASTATIN 40 MG TAB PO SCH (07:41)
[2017-10-29 07:46] LABS: CALCIUM 9.7 mg/dl (8.5-10.1); CREATININE 1.31 mg/dl (0.60-1.40); POTASSIUM 3.6 mmol/L (3.5-5.1)
[2017-10-29] MEDS: PANTOprazole INJ 40 MG in SYRINGE 0 ML IV SCH (08:33)
[2017-10-29] MEDS ORDERED: POTASSIUM CHLORIDE 20 MEQ TABCR PO STA (10:48)
[2017-10-29] MEDS ORDERED: METO2.5T PO ×2 (10:49)
[2017-10-29] MEDS ORDERED: GLC500 PO ×2 (10:49)
--- NOTE | 2017-10-29 10:59 | Discharge Instructions ---
Discharge Instructions Date of Service Oct 29, 2017. Admission Reason for Admission: Acute Exacerbation Of Chf Discharge Discharge Diagnosis / Problem: Acute on Chronic Diastolic CHF Discharge Goals Goal(s): Improve function, Increase independence, Improve disease control, Prevent Disease Progression Activity Recommendations Activity Limitations: resume your previous activity Lifting Limitations: none Exercise/Sports Limitations: rest today May Resume Sexual Activity: when tolerated Shower/Bathe: no limitations Driving or Machine Use: no limitations . Instructions / Follow-Up Instructions / Follow-Up You came to the ED due to worsening shortness of breath and sudden weight gain. This was due to a flare of your congestive heart failure. While you were admitted, we treated you intravenous diuretic to help get the fluid off. When you are discharged, please continue Bumex, Spironolactone and Metolazone. We have increased the frequency of your Metolazone to twice a week when you go home. Please follow-up with Dr. Griffin at you scheduled appointment at the end of October. In addition, we noted that you had low oxygen levels at nighttime. Please continue to wear your CPAP machine at the settings you were previously using. We will make a referral for your settings to be adjusted. In addition, we will give you a prescription for nighttime oxygen. Our disease case manager rn can help set that up with you. It is important to take your CPAP as failure to do so will increase your risk of worsening heart failure. Long-term, weight loss will also reduce your breathing difficulties at nighttime. We also noted that your long-term blood sugar levels are increased (HbA1c 7.1). This is consistent with a new diagnosis of diabetes. Please start taking Metformin daily. Your primary care provider will increase your dose as needed to achieve control. In addition, we recommend that you obtain a glucometer and check your blood sugars. Long-term dietary discretion and regular exercise 5 times per week help both weight loss and diabetic control. We will give you a prescription for labs in [address] Shania Castro this week after you have labs done. We have made no other changes to your medications. If your symptoms fail to improve, acutely worsen, please seek medical attention immediately by either calling your primary care provider or going to your nearest emergency department. Otherwise, please see your primary care provider within 1 week to ensure that your symptoms continue to improve. It was a pleasure to be involved in your care and we wish you all the best. Current Hospital Diet Patient's current hospital diet: AHA Diet (Heart Healthy), Low Sodium Diet (2gm Na), Diabetes Type 2 Diet Discharge Diet Recommended Diet: AHA Diet (Heart Healthy), Diabetes Type 2 Diet Pending Studies Studies pending at discharge: no Laboratory Results Hemoglobin A1c Test 10/24/17 19:25 Range/Units Estimated Average Glucose 157 mg/dl Hemoglobin A1c 7.1 H 4.5-5.6 % Lipid Panel Test 10/25/17 03:46 Range/Units Triglycerides Level 195 H 0-150 mg/dl Cholesterol Level 140 0-200 mg/dl HDL Cholesterol 46 mg/dl Cholesterol/HDL Ratio 3.0 LDL Cholesterol, Calculated 55 mg/dl Medical Emergencies . Who to Call and When: Medical Emergencies: If at any time you feel your situation is an emergency, please call 911 immediately. . Non-Emergent Contact Non-Emergency issues call your: Primary Care Provider Call Non-Emergent contact if: you have a fever, your pain is unusual for you, your pain is concerning you . . "Provider Documentation" section prepared by David Garcia. . VTE Core Measure Inpt VTE Proph given/why not?: SCD's
--- NOTE | 2017-10-29 11:07 | PROGRESS NOTE ---
DATE: 10/29/2017 CARDIOLOGY CONSULTATION FOLLOWUP NOTE The patient seen and examined. Chart, medications, telemetry reviewed. SUBJECTIVE: Feels slightly weak only because he had urinated frequently last night. Weight down over 1 kilogram with a single dose of metolazone, electrolytes and renal function tolerated well. OBJECTIVE: VITAL SIGNS: Heart rate is 78, blood pressure is 129/80. NECK: Thick. There is no distinct jugular venous distention. LUNGS: Generally clear with reduced breath sounds, chronically. CARDIOVASCULAR: Regular. There is no S3 gallop. ABDOMEN: Soft, nontender. EXTREMITIES: Without cyanosis or clubbing. There is reduced peripheral edema. LABORATORY DATA: Sodium is 136, potassium is 3.6, chloride is 99, bicarbonate is 33, BUN is 22, and creatinine is 1.3. IMPRESSION: A 72-year-old male with underlying history of diastolic heart failure secondary to restrictive cardiomyopathy and underlying obstructive sleep apnea, presenting with acute on chronic decompensated right-sided heart failure. He has responded to intravenous diuretics. RECOMMENDATIONS: The patient is now clinically improved, would discharge to home on usual diuretic dosing of Bumex 3 mg per day with metolazone 2.5 mg twice per week. Would recommend the patient resume CPAP, the patient had been discontinued in the past. Follow up with primary care physician promptly. Electrolytes will need to be followed with given dose of potassium supplement prior to discharge today.
[2017-10-29 11:58] VITALS: BP 129/80; PULSE 78; TEMP 36.7; O2SAT 93
--- NOTE | 2017-10-29 16:33 | Discharge Summary ---
Discharge Summary Date of Service Oct 29, 2017. Discharge Summary Admission Date: Oct 24, 2017 at 22:32 Discharge Date: Oct 29, 2017 Discharge Disposition: Home Principal Diagnosis: Acute on Chronic Diastolic CHF Problems/Secondary Diagnoses: New Diagnosis Diabetes Obstructive Sleep Apnea Nocturnal Hypoxemia Immunizations: Have You Had Influenza Vaccine: Yes History of Tetanus Vaccine?: Unknown History of Pneumococcal: Yes History of Hepatitis B Vaccine: No Procedures: Interpretation Summary * Name: JORDAN VILLANUEVA Study Date: 10/25/2017 07:12 AM BP: 147/89 mmHg * Patient Location: [facility]\S\S242\S\2 HR: 86 * : 1945 (M/d/yyyy) Gender: Male Height: 71 in * Age: 72 yrs Ethnicity: CA Weight: 301 lb * Ordering Physician: Gurvinder Ramirez * Referring Physician: Jose L Griffin * Performed By: Cara Ruiz RCS * * Reason For Study: RESTRICTIVE CARDIOMYOPATHY * BSA: 2.5 m2 * -- Conclusions -- * The left ventricle is normal in size. * There is moderate concentric left ventricular hypertrophy. * Left ventricular systolic function is normal. * No regional wall motion abnormalities noted. * Ejection Fraction = 65-70%. * Grade I diastolic dysfunction, (abnormal relaxation pattern). * There were technical limitations due to patient'sPoor acoustic windows secondary to severe lung disease. Medication Reconciliation New Medications: Metformin HCl (Metformin HCl) 500 Mg Tab 500 MG PO DAILY for 30 Days, #30 TAB Changed Medications: Metolazone (Zaroxolyn) 2.5 Mg Tab 2.5 MG PO UD for 30 Days, #30 TAB (Changed from: prn) Please take twice a week (Tuesdays and Saturdays) Continued Medications: Aspirin (Aspirin Ec) 81 Mg Tab 81 MG PO DAILY Atorvastatin (Lipitor) 20 Mg Tab 20 MG PO DAILY Budesonide/Formoterol Fumarate (Symbicort 160/4.5 Inhaler) 120 Puffs/ Aero 2 PUFF INH BID PRN for SOB/Wheezing Bumetanide (Bumetanide) 1 Mg Tab 3 TAB PO DAILY Carvedilol (Coreg) 12.5 Mg Tab 12.5 MG PO BID, TAB Celecoxib (Celecoxib) 200 Mg Cap 200 MG PO DAILY Ferrous Gluconate (Iron Supplement) 324 Mg Tab 324 MG PO BID Fluoxetine HCl (Fluoxetine HCl) 20 Mg Cap 20 MG PO BID Guaifenesin-Codeine (Guaiatussin Ac) 1 Syp Syp 10 ML PO Q4 PRN for Cough, #6 OZ Omeprazole (Prilosec) 20 Mg Capcr 20 MG PO QAM, 0 Refills Potassium Ext Rel (Klor-Con) 20 Meq Tabcr 20 MEQ PO prn, TAB Spironolactone (Aldactone) 25 Mg Tab 25 MG PO QAM, 0 Refills Discharge Exam Review of Systems: Constitutional: No fever, No chills, No sweats Eyes: No redness, No discharge ENT: No nasal symptoms, No sore throat, No tinnitus Respiratory: No cough, No sputum, No dyspnea on exertion, No dyspnea at rest Cardiovascular: + orthopnea (improved significantly at discharge), No chest pain, No palpitations Abdomen: No pain, No nausea, No vomiting, No diarrhea, No constipation Musculoskeletal: No joint pain, No muscle pain Genitourinary - Male: No hematuria, No dysuria, No urinary frequency Neurologic: No weakness, No numbness/tingling, No vertigo Psychiatric: No anxiety, No insomnia Hematologic / Lymphatic: No abnormal bleeding/bruising, No swollen lymph nodes, No night sweats Integumentary: No rash, No new/changing skin lesions, No color change Physical Exam: General Appearance: no apparent distress, + obese Eyes: normal inspection, EOMI ENT: normal ENT inspection, hearing grossly normal, pharynx normal Neck: supple, no adenopathy, + JVD (difficult to assess due to obesity) Respiratory/Chest: lungs clear, no respiratory distress Cardiovascular: regular rate, rhythm, no gallop, no murmur Abdomen / GI: normal bowel sounds, non tender, soft Extremities: no calf tenderness, no pedal edema Neurologic/Psychiatric: alert, normal mood/affect, oriented x 3 Skin: normal color, warm/dry, no rash Hospital Course Patient is a 72 year old male with a past medical history of restrictive cardiomyopathy with diastolic dysfunction and history of right sided CHF, GERD, and obstructive sleep apnea that presented to the ER on 10/24/17 with worsening shortness of breath. The patient reports he has been having a cough with progressive shortness of breath over the last 6 month that has rapidly progressed over the last week. The patient has been sleeping in a recliner for the last few month and reports a 15 lb weight gain over the last month despite being on a 1500 calorie per day diet. He has also been having worsening swelling is his legs that now comes up to his knees. The patient was admitted for acute on chronic right-sided diastolic CHF. He was started on IV Lasix therapy BID. Metolazone was added in to augment diuresis. The patient's lower extremity swelling and shortness of breath improved over his 5 days hospitalization. The patient was discharged on all his home medications with an increase in Metolazone to twice week. He is advised to do daily weight checks and take extra dose of diuretic if weight increases by 3 lbs in less than 24-48 hours. If additional dose of diuretic does not help, he is advised to call his primary care provider or bread distributor. In addition the patient notes that he was previously on CPAP 3 years ago for RAMAN. However, this was stopped because he lost a lot of weight and was told he no longer needed. However, he states that he has regained all the weight that he lost. As such we were concerned that he worsening symptoms of RAMAN. Nocturnal oximetry did note overnight desaturation. He was advised to bring in his home CPAP machine and to start using it. To see what his overnight oxygenation is on previous CPAP settings, we have ordered an outpatient nocturnal oximetry to be done while on CPAP. This will help determine if oxygen supplementation is also required. We have also ordered a CPAP titration as he is re-starting CPAP. He noted that he has a CPAP machine at home so one was not provided at discharge. The patient has been advised that uncontrolled RAMAN and nocturnal hypoxia are large contributors to his CHF. The patient also had a HbA1c 7.1 on admission, diagnostic of diabetes mellitus type 2. He was started on Metformin daily. He has been advised to continue Metformin at discharge and we recommend PCP provide glucose monitoring. The patient is advised to get labs in 48 hours (CBC, BMP) and have PCP follow- up in 3-5 days to ensure that he continues to improve. Furthermore, he has cardiology follow-up with Dr. Jose L Griffin at the end of October and was advised to keep this appointment. It was a pleasure to be involved in his care. Total Time Spent: Greater than 30 minutes This includes examination of the patient, discharge planning, medication reconciliation, and communication with other providers. Discharge Instructions Please refer to the electronic Patient Visit Report (Discharge Instructions) for additional information. Reviewed: Pt Seen/Exam by Me History urinated a lot last evening after getting metolazone. continues to feel good. Constitutional: denies: fever Respiratory: negative: short of breath Cardiovascular: denies chest pain Gastrointestinal/Abdominal: negative: abdominal pain General Appearance: no apparent distress Respiratory: lungs clear, no respiratory distress Cardiovascular: regular rate, rhythm Gastrointestinal: normal bowel sounds, non tender, soft Neurologic/Psychiatric: alert, oriented x 3 Assessment/Plan Resident Physician Supervision Note: I independently interviewed and examined the patient and verified the velazquez history and physical, reviewed labs and image studies, discussed the case with the resident Dr. Garcia and agree with the findings and care plan. Time spent in discharge 35 min
== END 2017-10-29 15:50 | disposition home or self-care (01) | DRG 292 ==
LOC: C.EDB 18:37 → C.2T 22:32 → ENRESERV 22:49 → UNDOADMIN 23:20 → C.2T 23:20 → ENRESERV 10-26 22:06 → C.MS4W 10-26 23:39
PROVIDERS: ADMIT Student in an Organized Health Care Education/Training Program; ATTEND Family Medicine
DX: I50.33 Acute on chronic diastolic (congestive) heart failure (principal); I42.5 Other restrictive cardiomyopathy; Z68.41 Body mass index [BMI] 40.0-44.9, adult; I11.0 Hypertensive heart disease with heart failure; G47.33 Obstructive sleep apnea (adult) (pediatric); R09.02 Hypoxemia; E11.65 Type 2 diabetes mellitus with hyperglycemia; K21.9 Gastro-esophageal reflux disease without esophagitis; I25.10 Atherosclerotic heart disease of native coronary artery without angina pectoris; E78.5 Hyperlipidemia, unspecified; J44.9 Chronic obstructive pulmonary disease, unspecified; E66.01 Morbid (severe) obesity due to excess calories; Z79.899 Other long term (current) drug therapy; Z79.82 Long term (current) use of aspirin; Z87.891 Personal history of nicotine dependence; Z82.49 Family history of ischemic heart disease and other diseases of the circulatory system

== ENCOUNTER → 2017-10-30 | Outpatient (CLI) | payer BC ==
[~2017-10-30] MED LIST changes: -ACET-1138 PO; -ASPEC81 PO; +ASPI81TA28 PO; -BENZ100C7 PO; -BUME1TAB PO; +CELE1CAP30 PO; -CLB200 PO; +GLC500 PO; -LVQ750 PO; -PRED5PAK3 PO; -SYMIN INH; +SYMIN160 INH
[2017-10-30 10:17] LABS: HEMATOCRIT 43.5 % (42-52); HEMOGLOBIN 14.4 g/dL (14.0-18.0); MEAN CELL VOLUME 92.8 fL (80-100); MEAN CORPUSCULAR HEMOGLOBIN 30.7 pg (25-34); MEAN CORPUSCULAR HGB CONC 33.1 g/dl (32-36); MEAN PLATELET VOLUME 10.3 fL (7.4-10.4); PLATELET COUNT 231 K/uL (130-400); RED CELL DISTRIBUTION WIDTH CV 14.2 % (11.5-14.5); RED CELL DISTRIBUTION WIDTH SD 47.7 fL (36.4-46.3); WHITE BLOOD COUNT 9.26 K/uL (4.8-10.8)
[2017-10-30 10:46] LABS: BLOOD UREA NITROGEN 19 mg/dl (7-18); CALCIUM 9.9 mg/dl (8.5-10.1); CARBON DIOXIDE 32 mmol/L (21-32); CREATININE 1.31 mg/dl (0.60-1.40); GLUCOSE 106 mg/dl (70-99); POTASSIUM 3.9 mmol/L (3.5-5.1); SODIUM 137 mmol/L (136-145)
== END | disposition home or self-care (01) ==
LOC: C.LAB 09:48
PROVIDERS: ATTEND Internal Medicine
DX: I50.9 Heart failure, unspecified (principal)

== ENCOUNTER → 2017-10-31 | Outpatient (CLI) | payer BC ==
[~2017-10-31] VITALS: Ht 180.3 cm; Wt 290.9 kg
[~2017-10-31] MED LIST changes: +ACET-1138 PO; +ASPEC81 PO; +BENZ100C7 PO; +BUME1TAB PO; +CLB200 PO; +LVQ750 PO; +PRED5PAK3 PO; +SYMIN INH
[2017-10-31 12:54] VITALS: BP 127/82; PULSE 114; Ht 180.3 cm; Wt 290.9 kg
== END | disposition home or self-care (01) ==
LOC: C.NEUR 12:27
PROVIDERS: ATTEND Internal Medicine Pulmonary Disease
DX: G47.33 Obstructive sleep apnea (adult) (pediatric) (principal); E66.9 Obesity, unspecified; I42.9 Cardiomyopathy, unspecified; J98.4 Other disorders of lung

== ENCOUNTER → 2017-11-02 | Outpatient (CLI) | payer BC ==
[~2017-11-02] MED LIST changes: -ACET-1138 PO; -ASPEC81 PO; -BENZ100C7 PO; -BUME1TAB PO; -CLB200 PO; -LVQ750 PO; -PRED5PAK3 PO; -SYMIN INH
[2017-11-02 14:13] LABS: BLOOD UREA NITROGEN 26 mg/dl (7-18); CALCIUM 10.2 mg/dl (8.5-10.1); CARBON DIOXIDE 31 mmol/L (21-32); CREATININE 1.27 mg/dl (0.60-1.40); GLUCOSE 125 mg/dl (70-99); POTASSIUM 3.3 mmol/L (3.5-5.1); SODIUM 138 mmol/L (136-145)
== END | disposition home or self-care (01) ==
LOC: C.LABSPEC 12:33
PROVIDERS: ATTEND Internal Medicine
DX: E11.9 Type 2 diabetes mellitus without complications (principal); I50.9 Heart failure, unspecified

== ENCOUNTER → 2017-11-09 | Outpatient (CLI) | payer BC ==
[2017-11-09 18:39] LABS: BLOOD UREA NITROGEN 33 mg/dl (7-18); CALCIUM 10.6 mg/dl (8.5-10.1); CARBON DIOXIDE 31 mmol/L (21-32); CREATININE 1.64 mg/dl (0.60-1.40); GLUCOSE 115 mg/dl (70-99); POTASSIUM 3.5 mmol/L (3.5-5.1); SODIUM 135 mmol/L (136-145)
== END | disposition home or self-care (01) ==
LOC: C.LABSPEC 17:48
PROVIDERS: ATTEND Internal Medicine
DX: E87.6 Hypokalemia (principal); I50.9 Heart failure, unspecified

== ENCOUNTER → 2017-11-13 | Outpatient (CLI) | payer BC ==
--- NOTE | 2017-11-14 06:41 | PAP/PSG TECHNICIAN REPORT ---
[facility] Canned Food Reconditioning Inspector Polysomnogram Report Study name: None Report date: 11/14/2017 Study date: 11/13/2017 Referring Physician: DR. MUNIZ Name: JORDAN FRANK Interpreting Physician: Devonte Muniz M.D. Date of : 1945 Canned Food Reconditioning Inspector: Noe Zaidi RPSGT. Sex: Male Age: 72 StudyType: PSG PAP Weight: 290 lbs 20.5 inches Height: 72 years, Height 5' 11" Neck Circum: BMI: 40.44 Medications: ASPIRIN 81 MG, ATORVASTATIN CALCIUM 20 MG, BUMEX 1 MG, CARVEDILOL 12.5 MG, CELECOXIB 200 MG, FERROUS GLUCONATE 324 MG, METFORMIN HCL 500 MG, METOLAZONE 2.5 MG, OMEPRAZOLE 20 MG, POTASSIUM CHLORIDE CRY ER 20 MEQ, SPIRONOLACTONE 25 MG, SYMBICORT Patient History PATIENT HAS HISTOR OF CHF AND CARDIOMYOPATHY. HE HAD A SLEEP STUDY DONE IN THE PAST AND CURRENTLY IS WEARING BIPAP AT 15/11 WITH A RATE OF 8. HE IS HERE TODAY FOR BIPAP TITRATION. ESS = 9 RM 8 Parameters Monitored NPSG: E1-M2, E2-M1, Fp1-M2, Fp2-M1, F3-M2, F4-M2, F4-M1, C3-M2, C4-M2, C4-M1, O1-M2, O2-M2, O2-M1, T3-M2, T4-M1, P3-M2, P4-M1, CHIN1, CHIN2, HR, EKG, Legs, PFLOW, SNOR, FLOW, CFLOW, Tidal Volume, THOR, ABDO, SpO2, PLTH, CPRESS, ETCO2 Wave, ETCO2, pH Sleep Architecture Sleep Stages Time at Lights Off 10:28:04 PM STAGES Time (min.) TST (%) Time at Lights On 5:49:34 AM Wake 75.5 -- Total Recording Time (TRT) 442.00 min. N1 10.0 3 Total Sleep Period (TSP) 400.5 min. N2 206.5 56 Total Sleep Time (TST) 366.0min. N3 30.0 8 Awake Time 75.5 min. REM 119.5 33 Wake after Sleep Onset 34.5 min. Sleep Efficiency (SE) 83 % Sleep Onset Latency (ANNETTE) 41.0 min. Number of Stage 1 Shifts None Awakenings 13 Stage Changes 69 Number of REM periods 3 REM 119.5 33 REM Latency 66.0 min. NREM 246.5 67 Body Position Analysis Supine Right Left Side Prone Vertical Total Sleep Time (min.) 181.7 0.0 238.5 238.50 0.0 0.0 Total Sleep Time (%) 35% 0% 65% 65 0% N/A% Total Sleep Time REM (min.) 0.0 0.0 119.5 None 0.0 0.0 Total Sleep Time NREM (min.) 127.5 0.0 119.0 None 0.0 0.0 Intermittent Wake (min.) 54.2 0.0 21.3 None 0.0 0.0 Total Sleep Period (%) 38% None None None None None Arousals Myoclonus (PLM) * Events Count Index Events Count Index Spontaneous 14 2 Events Awake (PLMW) 105 83.4 Respiratory 0 0.0 Events Asleep w/ Arousal (PLMA) 8 1.3 PLM 7 1 Events Asleep w/o Arousal (PLMS) 493 80.8 Snoring 3 0 Total Asleep 501 82.1 Total 24 4 Total 606 82 Respiratory Analysis * CA OA MA CH H RERA Total Count 0 1 0 0 16 1 17 Index 0.0 0.2 0.0 0 2.6 0 3.0 Mean Duration 0.0 10.2 0.0 0.00 14.9 0.1 13.8 Longest Duration 0.0 10.2 0.0 0.00 0.0 0.1 18.7 Respiratory Event Summary Total Supine ~Supine Right Left Prone REM NREM Apneas Count 1 0 1 N/A 1 N/A 1 0 Index 0.2 0 0 N/A 0.3 N/A 1 0 Hypopneas (4% Desat) Count 16 8 8 N/A 8 N/A 5 11 Index 2.6 3.8 2 N/A 2.0 N/A 2.5 2.7 Apneas & All Hypopneas Count 17 8 9 N/A 9 N/A 6 11 Index 2.8 4 2 N/A 2 N/A 3.0 2.7 Respiratory Events (Entry Level Sales Consultant+All Hyp+RERA) Count 17 9 9 N/A 9 N/A 6 11 Index 3.0 4 2 N/A 2.3 N/A 3.0 2.9 Respiratory Related Arousal Count 0 9 0 N/A 0 N/A 0 0 Index 0.0 0 0 N/A 0 N/A 0 0 Snoring Analysis Supine Right Left Prone REM NREM Total Snore duration 0.8 min Snores count 10 N/A 10 N/A 3 17 20 Snore mean duration 2.4 Sec Snores index 5 N/A 3 N/A 1.5 4.1 3.3 TST with snoring (%) 0.2% Desaturation Event Summary: Minimum %SpO2 Event Count Mean/Min/Max Duration(sec.) Desaturation Index % Time In Bed > 90 51 24.0 / 7.3 / 58.0 10.2 70.2 86 - 90 4 15.9 / 7.3 / 26.8 1.9 29.5 81 - 85 0 N/A 0.0 0.3 76 - 80 0 N/A 0.0 0.0 71 - 75 0 N/A 0.0 0.0 66 - 70 0 N/A 0.0 0.0 61 - 65 0 N/A 0.0 0.0 56 - 60 0 N/A 0.0 0.0 51 - 55 0 N/A 0.0 0.0 < 50 0 N/A 0.0 0.0 Total REM NREM Awake <50% 0.0 min. 0.0 min. 0.0 min. 0.0 min. 51 - 60% 0.0 min. 0.0 min. 0.0 min. 0.0 min. 61 - 70% 0.0 min. 0.0 min. 0.0 min. 0.0 min. 71 - 80% 0.0 min. 0.0 min. 0.0 min. 0.0 min. 81 - 90% 126.8 min. 23.4 min. 87.5 min. 15.9 min. 91 - 100% 298.9 min. 96.1 min. 152.7 min. 50.2 min. Average 91 92 91 92 Minimum SpO2 82 84 82 82 Desaturation Event Index 7.2 6.0 3.7 20.7 # Desat. Events below 89% 14 5 5 4 Time(%) with Saturation below 89% 2.7 0.6 1.5 0.6 Time(min.) with Saturation below 89% 11.6 2.5 6.5 2.6 Time (mins) REM (mins) NREM (mins) % of TST SpO2 Below 90% 21 8 N13 10.7 SpO2 Below 88% 4 0 0 1 Heart Rate Analysis Min (bpm) Max (bpm) Average (bpm) Awake 71 136 82 NREM 65 150 77 REM 68 84 73 Overall 65 150 76 Supplemental O2 Values Minimum O2 level: None Value Start Time End Time Canned Food Reconditioning Inspector Comments Mr. Frank slept in the left and supine positions. No cardiac arrhythmia noted. Leg movements noted. No bruxism noted. PAP initiated at an IPAP of 12 CMH2O and an EPAP of 8 CMH2O with a rate of 8 up-titrated to an optimal level of: IPAP +16 CMH2O, EPAP + 11 CMH20 with a rate of 8 BPM, which nearly eliminated all respiratory events and snoring. The patient brought in his own mask that was used during titration Mr. Frank awoke to use the restroom 1 time during the night. Mr. Frank stated I did not sleep as well as I do when I am in my own bed. The final report will be interpreted and signed by a sleep physician. The completed physician report will then be placed in the patient medical record. Therapy Event: Therapy (cm H20) 09/22 29/07 30/07 16 Total Time at Pressure (min.) 2.9 264.3 99.1 75.1 TST at Pressure (min.) 0.0 205.3 87.6 73.1 # Periods 1 1 1 1 Sleep Onset (min.) N/A 38.1 0.0 0.0 REM Onset (min.) N/A 104.1 93.7 0.0 Sleep Efficiency % 0 77 88 97 Wakefulness (%) 100.0 22.3 11.6 2.7 Wakefulness (min.) 2.9 59.1 11.5 2.0 NREM 1 (%) 0.0 3.2 1.0 0.7 NREM 1 (min.) 0.0 8.5 1.0 0.5 NREM 2 (%) 0.0 38.9 66.3 50.6 NREM 2 (min.) 0.0 102.8 65.7 38.0 NREM 3 (%) 0.0 5.5 15.6 0.0 NREM 3 (min.) 0.0 14.5 15.5 0.0 REM (%) 0.0 30.1 5.4 46.1 REM (min.) 0.0 79.5 5.4 34.6 # Arousals N/A 19 4 1 Arousal Index N/A 5.6 2.7 0.8 # Snore N/A 15 2 3 Snore Index N/A 4.4 1.4 2.5 AHI N/A 2.6 4.1 1.6 AHI Supine N/A 6.9 0.9 N/A AHI Non-Supine N/A 0.8 14.0 1.6 NREM AHI N/A 3.8 1.5 1.6 REM AHI N/A 0.8 44.8 1.7 RDI N/A 2.9 4.1 1.6 # Obstructive N/A 0 1 0 # Central Ap N/A 0 0 0 # Mixed N/A 0 0 0 # Hypopneas N/A 9 5 2 RERAS N/A 1 0 0 Total Respiratory Events N/A 10 6 2 Time Below SpO2 89.00% (min.) 0.0 3.2 4.3 1.5 Mean NREM SpO2 (%) N/A 91 91 90 Mean REM SpO2 (%) N/A 92 89 91 Mean Sleep SpO2 (%) N/A 92 91 91 Min NREM SpO2 (%) N/A 82 86 88 Min REM SpO2 (%) N/A 88 84 88 Position Supine (min.) 0.0 61.3 66.2 0.0 Position Non-supine (min.) 0.0 144.0 21.4 73.1 LM Index Sleep N/A 58.8 202.1 4.1 LM Index NREM N/A 91.1 213.8 0.0 LM Index REM N/A 7.5 22.4 8.7 Mean Heart Rate (bpm) N/A 78 77 69 Min Heart Rate (bpm) N/A 69 68 65
--- NOTE | 2017-11-14 16:07 | POLYSOMNOGRAPH REPORT ---
CLINICAL DATA: A 72-year-old male with BMI of 40.44 referred by myself with a previous history of obstructive sleep apnea, currently on BIPAP 15/11 with a backup rate of 8. He does have CHF and cardiomyopathy and is referred for a BiPAP titration study. SLEEP ARCHITECTURE: Total sleep period was 400.5 minutes. Total sleep time was 366 minutes divided between 246.5 minutes of non-REM sleep and 119.5 minutes of REM sleep. Sleep latency was delayed at 41 minutes. REM latency was 66 minutes. Sleep efficiency was 83%. Wake after sleep onset was 34.5 minutes. Sleep consisted of stage N1 3%, stage N2 56%, stage N3 8%, and REM 33%. AROUSAL DATA: 24 arousals were recorded for an index of 4 per hour. PLM DATA: Severe PLMD was noted. There were 501 limb movements during sleep noted for an index of 82 per hour with arousal index of 1.3 per hour. RESPIRATORY DATA: The AHI was 2.8. There was 1 obstructive apneic episode 10.2 seconds in duration. There were 16 hypopneic episodes with a mean duration of 15 seconds. OXIMETRY DATA: Nocturnal hypoxemia was seen. The oxygen charles was 82% during non-REM sleep. The mean saturation was 91%. Time below 88% was 4 minutes. EKG: Heart rates ranged from 65-150 beats per minute. No arrhythmias were noted. BAGGAGE INSPECTOR'S COMMENTS AND TREATMENT SUMMARY: The patient used his own face mask. He was started on BiPAP and was titrated up to final pressure of 16/11 with a backup rate of 8 breaths per minutes. At his final pressure setting, the patient slept for 73 minutes with an AHI of 1.6 without evidence of nocturnal hypoxemia. IMPRESSION: Obstructive sleep apnea/hypopnea corrected with BiPAP 16/11 and a backup rate of 8 breaths per minute. RECOMMENDATIONS: The patient should have his BiPAP adjusted to 16/11 backup rate of 8. He should be seen back in followup within 90 days to document efficacy and compliance. [facility]
== END | disposition home or self-care (01) ==
LOC: C.NEUR 21:00
PROVIDERS: ATTEND Internal Medicine Pulmonary Disease
DX: I42.9 Cardiomyopathy, unspecified (principal); E66.9 Obesity, unspecified; G47.33 Obstructive sleep apnea (adult) (pediatric); J98.4 Other disorders of lung

== ENCOUNTER → 2017-11-23 | Outpatient (CLI) | payer BC ==
[2017-11-23 15:15] LABS: BLOOD UREA NITROGEN 24 mg/dl (7-18); CALCIUM 10.1 mg/dl (8.5-10.1); CARBON DIOXIDE 31 mmol/L (21-32); CREATININE 1.58 mg/dl (0.60-1.40); GLUCOSE 102 mg/dl (70-99); POTASSIUM 4.3 mmol/L (3.5-5.1); SODIUM 136 mmol/L (136-145)
== END | disposition home or self-care (01) ==
LOC: C.LABSPEC 14:48
PROVIDERS: ATTEND Internal Medicine
DX: I50.9 Heart failure, unspecified (principal); K57.92 Diverticulitis of intestine, part unspecified, without perforation or abscess without bleeding

== ENCOUNTER 2018-04-18 19:30 | Inpatient (IN) | payer BC, OTHER ==
[~2018-04-18] VITALS: Ht 180.3 cm; Wt 133.6 kg
[~2018-04-18 19:30] MED LIST changes: +POTA-639 PO; -POTA20TA16 PO
[2018-04-18] MEDS ORDERED: ASPIRIN 324 MG CHEW PO STA (19:41)
[2018-04-18] MEDS ORDERED: NITROGLYCERIN 0.4 MG SL PER TAB CHARGE SL PRN (19:45)
--- NOTE | 2018-04-18 19:45 | EMERGENCY ROOM VISIT NOTE ---
History Report prepared by Leonides: Shira Morales Under the Supervision of: Dr. Elian Mann M.D. First contact with patient: 19:34 Chief Complaint: CARDIAC ASSESSMENT Stated Complaint: CHEST PAIN History of Present Illness The patient is a 72 year old male who presents to the Emergency Room with complaints of persistent chest pain that started this afternoon. The patient rates his pain a 6/10 in severity. The patient describes his pain as "pressure" on his chest. He notes laying flat makes his pain worse. The patient has a history of heart failure but denies a history of heart attacks. He states his legs are swollen and has cramping in his calves. He notes he thinks he is having fluid buildup. He reports he becomes lightheaded and short of breath when he stands. He denies taking any NTG today. He reports he takes one baby aspirin per day. The patient is former smoker. Source of History: patient Onset: this afternoon Position: chest Symptom Intensity: 6/10 Quality: pressure Timing: other (persistent) Modifying Factors (Worsening): other (lying flat) Associated Symptoms: + SOB Note: Additional symptoms: calf cramping, lightheaded. Review of Systems See HPI for pertinent positives & negatives. A total of 10 systems reviewed and were otherwise negative. Past Medical & Surgical Medical Problems: (1) Acute and chronic respiratory failure with hypoxia (2) ACUTE BRONCHITIS (3) Acute exacerbation of CHF (congestive heart failure) (4) Acute on chronic diastolic (congestive) heart failure (5) GERD (gastroesophageal reflux disease) (6) Localized, primary osteoarthritis of the lower leg (7) Obesity hypoventilation syndrome (8) Obstructive lung disease (9) Pneumonia (10) Restrictive cardiomyopathy (11) Sleep apnea (12) Sleep apnea (13) Type 2 diabetes mellitus Surgical Problems: (1) Post-operative state Family History FH: cancer FH: gallbladder disease FH: heart disease Hypertension Social History Smoking Status: Never Smoker Alcohol Use: none Drug Use: none Marital Status: Housing Status: lives with family Occupation Status: retired Current/Historical Medications Scheduled Aspirin (Aspirin Ec), 81 MG PO DAILY Atorvastatin (Lipitor), 20 MG PO DAILY Bumetanide (Bumetanide), 2 MG PO BID Carvedilol (Coreg), 12.5 MG PO BID Celecoxib (Celecoxib), 200 MG PO DAILY Ferrous Gluconate (Iron Supplement), 324 MG PO BID Fluoxetine HCl (Fluoxetine HCl), 20 MG PO BID Metformin Hcl (Glucophage), 500 MG PO DAILY/BREAKFAST Metolazone (Zaroxolyn), 2.5 MG PO Q2D Omeprazole (Prilosec), 20 MG PO QAM Potassium Ext Rel (Klor-Con), 20 MEQ PO TID Spironolactone (Aldactone), 25 MG PO BID/AM Scheduled PRN Budesonide/Formoterol Fumarate (Symbicort 160/4.5 Inhaler), 2 PUFF INH BID PRN for SOB/Wheezing Allergies Coded Allergies: Iodinated Diagnostic Agents (Verified Adverse Reaction, Mild, GI UPSET, ) Physical Exam Vital Signs Date Time Temp Pulse Resp B/P (MAP) Pulse Ox O2 Delivery O2 Flow Rate FiO2 04/18/18 23:06 76 20 131/64 99 Nasal Cannula 2.0 04/18/18 22:33 79 20 122/72 99 Nasal Cannula 4.0 04/18/18 22:00 84 20 116/77 98 Room Air 04/18/18 21:15 76 19 122/73 98 Nasal Cannula 4.0 04/18/18 21:00 78 13 109/68 99 Nasal Cannula 4.0 04/18/18 20:40 92 20 114/79 100 Nasal Cannula 4.0 04/18/18 20:19 91 20 112/75 95 Room Air 04/18/18 20:15 91 95 Room Air 04/18/18 20:10 91 27 81/58 86 Room Air 04/18/18 20:09 95 Room Air 04/18/18 20:05 96 16 143/65 95 Room Air 04/18/18 19:54 47 04/18/18 19:31 36.6 65 18 146/63 96 Room Air Physical Exam GENERAL: Patient is anxious appearing and in mild distress. EYES: No scleral icterus, unremarkable pupils. ENT: Mucous membranes moist, no nasal congestion. NECK: No masses appreciated, no meningismus, trachea is midline. RESPIRATORY: No dyspnea. Crackles in bilateral lungs. No wheeze, no rhonchi. CARDIOVASCULAR: Regular rate and rhythm. No murmurs, rubs, gallops appreciated. GASTROINTESTINAL: Abdomen soft, nontender, no peritonitis. Bowel sounds positive. No masses appreciated. Pitting edema lower abdomen. BACK: No midline tenderness, no CVA tenderness EXTREMITIES: Normal motion all extremities, no cyanosis. 4+ pitting edema bilateral legs. NEUROLOGIC: Alert and oriented, no acute motor or sensory deficits, no focal weakness, cranial nerves grossly intact. SKIN: No rash, no jaundice, no diaphoresis. Medical Decision & Procedures ER Provider Diagnostic Interpretation: Radiology results and stated below per my review and radiologist interpretation: CHEST ONE VIEW PORTABLE CLINICAL HISTORY: 72 years-old Male presenting with Chest Pain. TECHNIQUE: Portable upright AP view of the chest was obtained. COMPARISON: 72 10/24/2017. FINDINGS: Atherosclerosis of aortic arch. Cardiac silhouette mildly enlarged. Mild pulmonary vascular prominence. Bronchial wall cuffing may be present. Mildly low lung volumes with hypoventilatory changes. Minimal basilar opacities. No pleural effusion or pneumothorax. IMPRESSION: 1. Cardiomegaly with suggestion of volume overload/congestive change. No sina pulmonary edema. 2. Mildly low lung volumes with hypoventilatory changes. Electronically signed by: Antonio Ha M.D. 04/18/2018 8:11 PM Dictated Date/Time: 04/18/2018 8:09 PM Laboratory Results 04/18/18 20:11 Red Blood Count 4.60, Mean Corpuscular Volume 92.2, Mean Corpuscular Hemoglobin 30.4, Mean Corpuscular Hemoglobin Concent 33.0, Mean Platelet Volume 10.8, Neutrophils (%) (Auto) 52.1, Lymphocytes (%) (Auto) 37.3, Monocytes (%) (Auto) 7.6, Eosinophils (%) (Auto) 2.4, Basophils (%) (Auto) 0.3, Neutrophils # (Auto) 5.13, Lymphocytes # (Auto) 3.67, Monocytes # (Auto) 0.75, Eosinophils # (Auto) 0.24, Basophils # (Auto) 0.03 04/18/18 20:11 Test 04/18/18 20:11 04/18/18 23:41 White Blood Count 9.85 K/uL (4.8-10.8) Red Blood Count 4.60 M/uL (4.7-6.1) Hemoglobin 14.0 g/dL (14.0-18.0) Hematocrit 42.4 % (42-52) Mean Corpuscular Volume 92.2 fL (80-100) Mean Corpuscular Hemoglobin 30.4 pg (25-34) Mean Corpuscular Hemoglobin Concent 33.0 g/dl (32-36) Platelet Count 227 K/uL (130-400) Mean Platelet Volume 10.8 fL (7.4-10.4) Neutrophils (%) (Auto) 52.1 % Lymphocytes (%) (Auto) 37.3 % Monocytes (%) (Auto) 7.6 % Eosinophils (%) (Auto) 2.4 % Basophils (%) (Auto) 0.3 % Neutrophils # (Auto) 5.13 K/uL (1.4-6.5) Lymphocytes # (Auto) 3.67 K/uL (1.2-3.4) Monocytes # (Auto) 0.75 K/uL (0.11-0.59) Eosinophils # (Auto) 0.24 K/uL (0-0.5) Basophils # (Auto) 0.03 K/uL (0-0.2) RDW Standard Deviation 45.7 fL (36.4-46.3) RDW Coefficient of Variation 13.7 % (11.5-14.5) Immature Granulocyte % (Auto) 0.3 % Immature Granulocyte # (Auto) 0.03 K/uL (0.00-0.02) Prothrombin Time 10.0 SECONDS (9.0-12.0) Prothromb Time International Ratio 1.0 (0.9-1.1) Activated Partial Thromboplast Time 24.9 SECONDS (21.0-31.0) Partial Thromboplastin Ratio 1.0 Anion Gap 7.0 mmol/L (3-11) Est Creatinine Clear Calc Drug Dose 51.7 ml/min Estimated GFR () 40.8 Estimated GFR (Non- 35.2 BUN/Creatinine Ratio 12.6 (10-20) Calcium Level 8.9 mg/dl (8.5-10.1) Total Creatine Kinase 241 U/L (39-308) Creatine Kinase MB 2.9 ng/ml (0.5-3.6) Creatine Kinase MB Ratio 1.2 (0-3.0) Pro-B-Type Natriuretic Peptide 119 pg/ml (0-900) Chemistry Specimen Hemolysis Laboratory results as reviewed by me. Medications Administered Medications (Trade) Dose Ordered Sig/Andrew Route Start Time Stop Time Status Last Admin Dose Admin Aspirin (Aspirin Chew) 324 mg NOW STAT PO 04/18/18 19:41 04/18/18 19:42 DC 04/18/18 20:05 324 MG Nitroglycerin (Nitrostat Tab) 0.4 mg PRN PRN SL 04/18/18 19:45 05/18/18 19:44 04/18/18 20:06 0.4 MG Fentanyl Citrate (Fentanyl Inj) 100 mcg NOW STAT IV 04/18/18 20:45 04/18/18 20:46 DC 04/18/18 20:52 100 MCG Ondansetron HCl (Zofran Inj) 4 mg NOW STAT IV 04/18/18 20:45 04/18/18 20:46 DC 04/18/18 20:51 4 MG Furosemide (Lasix Inj) 40 mg NOW STAT IV 04/18/18 21:09 04/18/18 21:10 DC 04/18/18 21:18 40 MG ECG Per My Interpretation Indication: chest pain Rate (beats per minute): 72 Rhythm: sinus rhythm Findings: PAC, RBBB (incomplete), no acute ischemic change Comparison ECG Date: 10/24/17 Change: When compared to previous, he now has S wave in lead and prolonged QRS. ED Course 1934: The patient was evaluated in room A9B. A complete history and physical exam was performed. 1814: The patient received one nitro and became symptomatically hypotensive. He had a systolic blood pressure of 80. 1825: The patient notes he is feeling increasingly dyspneic and chest pain continues. He does have an IV and labs have been sent. I placed him on 4L nasal canula with improvement of discomfort. I asked nursing to obtain a second EKG. 1834: Repeat EKG shows sinus rhythm with a rate of 91, no acute ischemia, incomplete RBBB continues, he now has bigeminy when compared to previous EKG. 1844: The patient is asking for medications for his chest discomfort and nausea. 1999: The patient feels better and denies tearing pain. His shortness of breath has improved and he is agreeable to Lasix. He understands risk of renal failure. 2054: Discussed the patient's case with Dr. Fernandez, [facility] Hospitalist. The patient will be evaluated for further treatment and disposition. Medical Decision Differential: Cardiac Ischemia (STEMI, NSTEMI, Unstable Angina, etc), Aortic Dissection, Arrhythmia, Pulmonary Embolism, Pneumonia, Pneumothorax, MSK, Infectious, Pericarditis/Myocarditis, Esophageal Rupture, Gastrointestinal, amongst other pathologies entertained. 72 yr old male arrives for evaluation of shortness of breath and chest tightness. Notes onset over last 2 weeks increasing fluid in legs with increasing shortness of breath. Has increased Bumex several times with worsening shob and decreasing urination. Notes chest tightness worsening throughout today. EKG with changes but no stemi. Given SLNTG with rapid drop in bp and no change in chest pain. Given NC O2, Fentanyl IV and had improvement. Labs with worsening renal insufficiency. CXR with congestive findings. Trop is currently negative. Seems unlikely PE despite history DVT as he has no leg swelling, no travel, no hypoxia, no tachycardiac and has other more clear diagnosis for cause of his symptoms. ASA given. Patient feeling well but with EKG changes, failure outpatient therapy and increasing fluid overload will need to come in. Medication Reconcilliation Current Medication List: was personally reviewed by me Blood Pressure Screening Patient's blood pressure: Normal blood pressure Consults Time Called: 2049 Consulting Physician: Dr. Fernandez, [facility] Hospitalist Returned Call: 2054 Discussed the patient's case with Dr. Fernandez [facility] Hospitalist. The patient will be evaluated for further treatment and disposition. Impression Primary Impression: Congestive heart failure Additional Impression: Chest pain Scribe Attestation The scribe's documentation has been prepared under my direction and personally reviewed by me in its entirety. I confirm that the note above accurately reflects all work, treatment, procedures, and medical decision making performed by me. Departure Information Dispostion Being Evaluated By Hospitalist Referrals Pepe Peterson M.D. (PCP) Patient Instructions My [facility] Problem Qualifiers
--- NOTE | 2018-04-18 20:12 | DIAGNOSTIC IMAGING REPORT ---
CHEST ONE VIEW PORTABLE CLINICAL HISTORY: 72 years-old Male presenting with Chest Pain. TECHNIQUE: Portable upright AP view of the chest was obtained. COMPARISON: 72 10/24/2017. FINDINGS: Atherosclerosis of aortic arch. Cardiac silhouette mildly enlarged. Mild pulmonary vascular prominence. Bronchial wall cuffing may be present. Mildly low lung volumes with hypoventilatory changes. Minimal basilar opacities. No pleural effusion or pneumothorax. IMPRESSION: 1. Cardiomegaly with suggestion of volume overload/congestive change. No sina pulmonary edema. 2. Mildly low lung volumes with hypoventilatory changes. Electronically signed by: Antonio Ha M.D. 04/18/2018 8:11 PM Dictated Date/Time: 04/18/2018 8:09 PM
[2018-04-18 20:33] LABS: BASO % 0.3 %; BASO ABS # 0.03 K/uL (0-0.2); EOS % 2.4 %; EOS ABS # 0.24 K/uL (0-0.5); HEMATOCRIT 42.4 % (42-52); IG# 0.03 K/uL (0.00-0.02); LYMPH % 37.3 %; LYMPH ABS # 3.67 K/uL (1.2-3.4); MEAN CELL VOLUME 92.2 fL (80-100); MEAN CORPUSCULAR HEMOGLOBIN 30.4 pg (25-34); MEAN PLATELET VOLUME 10.8 fL (7.4-10.4); MONO % 7.6 %; MONO ABS # 0.75 K/uL (0.11-0.59); NEUT % 52.1 %; NEUT ABS # 5.13 K/uL (1.4-6.5); PLATELET COUNT 227 K/uL (130-400); RED CELL DISTRIBUTION WIDTH CV 13.7 % (11.5-14.5); RED CELL DISTRIBUTION WIDTH SD 45.7 fL (36.4-46.3); WHITE BLOOD COUNT 9.85 K/uL (4.8-10.8)
[2018-04-18] MEDS ORDERED: METO2.5T PO (20:39)
[2018-04-18] MEDS ORDERED: GLC/500 PO (20:41)
[2018-04-18 20:42] LABS: PTT PATIENT 24.9 SECONDS (21.0-31.0)
[2018-04-18] MEDS ORDERED: ONDANSETRON INJ 2 MG/ML 2 ML VIAL IV STA (20:45)
[2018-04-18] MEDS ORDERED: FENTANYL CITRATE INJ 50 MCG/1 ML 2 ML VIAL IV STA (20:45)
[2018-04-18 21:01] LABS: BLOOD UREA NITROGEN 24 mg/dl (7-18); CALCIUM 8.9 mg/dl (8.5-10.1); CARBON DIOXIDE 29 mmol/L (21-32); CKMB 2.9 ng/ml (0.5-3.6); CREATININE 1.89 mg/dl (0.60-1.40); GLUCOSE 161 mg/dl (70-99); POTASSIUM 3.6 mmol/L (3.5-5.1); SODIUM 138 mmol/L (136-145)
[2018-04-18] MEDS ORDERED: FUROSEMIDE 40 MG/4 ML VIAL IV STA ×2 (21:09→21:12)
[2018-04-18] MEDS ORDERED: MAGNESIUM HYDROXIDE SUSP 30 ML UDC PO PRN (23:15)
[2018-04-18] MEDS ORDERED: MoRPHine SULFATE 4 MG/ML 1 ML CARP\\VIAL IV PRN (23:15)
[2018-04-18] MEDS ORDERED: ALUMINUM/MAGNESIUM/SIMETH (MAALOX MAX) 30 ML UDC PO PRN (23:15)
[2018-04-18] MEDS ORDERED: ONDANSETRON INJ 2 MG/ML 2 ML VIAL IV PRN (23:15)
[2018-04-18] MEDS ORDERED: BUDESONIDE/FORMOTEROL FUMARATE 160/4.5 60 PUFFS/INHALER INH PRN (23:15)
[2018-04-18] MEDS ORDERED: POLYETHYLENE (MIRALAX) 17 GM PACK PO PRN (23:15)
[2018-04-18] MEDS ORDERED: ACETAMINOPHEN 325 MG TAB PO PRN (23:15)
[2018-04-18] MEDS ORDERED: IV FLUIDS COMPLETED PRN (23:30)
[2018-04-19] VITALS (13 sets, daily range): BP systolic 106–151; BP diastolic 68–89; PULSE 53–80; TEMP 36.4–37.1; O2SAT 94–98; Ht 180.3 cm; Wt 133.6 kg
--- NOTE | 2018-04-19 00:05 | History and Physical ---
History & Physical Date & Time of Service: Apr 18, 2018 at 23:22 Chief Complaint: Chest Pain Primary Care Physician: Pepe Peterson M.D. History of Present Illness Source: patient, hospital records, other 72 y/o M Hx HTN, HPL, DM II, morbid obesity and RAMAN, diastolic CHF - presenting with SOB and severe central CP. The pt reports recent difficulty with volume overload and had increased his Bumex dose beginning 3 weeks ago. Despite this he reports weight gain of approximately 5 pound/wk. He denies any nausea, vomiting or diaphoresis. His pain has not radiated and is described as pressure -like. Initial labs are notable for ARF. An EKG demonstrated a RBBB and bigeminy which were not present previously. No acute elevations or depressions were present. The pt received a dose of NTG in the ER which dropped his BP precipitously. He then received a dose of Fentanyl which served to resolve his CP. Past Medical/Surgical History 1) Grade 1 diastolic CHF - echo 10/2017 showing preserved EF and R > L dysfunction 2) RAMAN 3) Restrictive lung disease 4) Asthma 5) Morbid obesity with hypoventilation 6) HTN 7) HPL 8) DM II 9) Renal impairment dating to 10/2017 - no recorder history of CKD 10) A cardiac cath in 2005 did not show any significant disease Family History FH: cancer FH: gallbladder disease FH: heart disease Hypertension Social History Smoking Status: Former Smoker Drug Use: none Marital Status: Housing status: lives with family Occupational Status: retired Immunizations History of Influenza Vaccine: Yes History of Tetanus Vaccine?: Unknown History of Pneumococcal: Yes History of Hepatitis B Vaccine: No Allergies Coded Allergies: Iodinated Diagnostic Agents (Verified Adverse Reaction, Mild, GI UPSET, ) Home Medications Scheduled Aspirin (Aspirin Ec), 81 MG PO DAILY Atorvastatin (Lipitor), 20 MG PO DAILY Bumetanide (Bumetanide), 2 MG PO BID Carvedilol (Coreg), 12.5 MG PO BID Celecoxib (Celecoxib), 200 MG PO DAILY Ferrous Gluconate (Iron Supplement), 324 MG PO BID Fluoxetine HCl (Fluoxetine HCl), 20 MG PO BID Metformin Hcl (Glucophage), 500 MG PO DAILY/BREAKFAST Metolazone (Zaroxolyn), 2.5 MG PO Q2D Omeprazole (Prilosec), 20 MG PO QAM Potassium Ext Rel (Klor-Con), 20 MEQ PO TID Spironolactone (Aldactone), 25 MG PO BID/AM Scheduled PRN Budesonide/Formoterol Fumarate (Symbicort 160/4.5 Inhaler), 2 PUFF INH BID PRN for SOB/Wheezing Review of Systems Constitutional: No fever, No chills, No sweats Eyes: No worsening of vision ENT: No hearing loss, No unusual epistaxis, No nasal symptoms Respiratory: + shortness of breath, + dyspnea on exertion, + dyspnea at rest, No cough, No sputum, No wheezing Cardiovascular: + chest pain, + orthopnea Abdomen: No pain, No nausea, No vomiting Musculoskeletal: No joint pain Genitourinary - Male: No hematuria, No dysuria Neurologic: No memory loss, No paralysis, No weakness Psychiatric: No depression symptoms Endocrine: No fatigue Hematologic / Lymphatic: No abnormal bleeding/bruising Integumentary: No rash Allergic / Immunologic: No environmental allergies Physical Exam Vital Signs Date Time Temp Pulse Resp B/P (MAP) Pulse Ox O2 Delivery O2 Flow Rate FiO2 04/18/18 23:06 76 20 131/64 99 Nasal Cannula 2.0 04/18/18 22:33 79 20 122/72 99 Nasal Cannula 4.0 04/18/18 22:00 84 20 116/77 98 Room Air 04/18/18 21:15 76 19 122/73 98 Nasal Cannula 4.0 04/18/18 21:00 78 13 109/68 99 Nasal Cannula 4.0 04/18/18 20:40 92 20 114/79 100 Nasal Cannula 4.0 04/18/18 20:19 91 20 112/75 95 Room Air 04/18/18 20:15 91 95 Room Air 04/18/18 20:10 91 27 81/58 86 Room Air 04/18/18 20:09 95 Room Air 04/18/18 20:05 96 16 143/65 95 Room Air 04/18/18 19:54 47 04/18/18 19:31 36.6 65 18 146/63 96 Room Air General Appearance: + obese Head: normocephalic ENT: pharynx normal Neck: + pertinent finding (Cannot evaluate JVD due to habitus) Respiratory/Chest: chest non-tender, + pertinent finding (Crackles at L base) Cardiovascular: regular rate, rhythm, no murmur Abdomen/GI: normal bowel sounds, non tender, soft Back: normal inspection, no CVA tenderness Extremities/Musculoskelatal: + pedal edema Neurologic/Psych: flight/transport nurse II-XII nml as tested, no motor/sensory deficits, alert, oriented x 3 Skin: normal color Diagnostics Laboratory Results Results Past 24 Hours Test 04/18/18 20:11 Range/Units White Blood Count 9.85 4.8-10.8 K/uL Red Blood Count 4.60 4.7-6.1 M/uL Hemoglobin 14.0 14.0-18.0 g/dL Hematocrit 42.4 42-52 % Mean Corpuscular Volume 92.2 80-100 fL Mean Corpuscular Hemoglobin 30.4 25-34 pg Mean Corpuscular Hemoglobin Concent 33.0 32-36 g/dl Platelet Count 227 130-400 K/uL Mean Platelet Volume 10.8 7.4-10.4 fL Neutrophils (%) (Auto) 52.1 % Lymphocytes (%) (Auto) 37.3 % Monocytes (%) (Auto) 7.6 % Eosinophils (%) (Auto) 2.4 % Basophils (%) (Auto) 0.3 % Neutrophils # (Auto) 5.13 1.4-6.5 K/uL Lymphocytes # (Auto) 3.67 1.2-3.4 K/uL Monocytes # (Auto) 0.75 0.11-0.59 K/uL Eosinophils # (Auto) 0.24 0-0.5 K/uL Basophils # (Auto) 0.03 0-0.2 K/uL RDW Standard Deviation 45.7 36.4-46.3 fL RDW Coefficient of Variation 13.7 11.5-14.5 % Immature Granulocyte % (Auto) 0.3 % Immature Granulocyte # (Auto) 0.03 0.00-0.02 K/uL Prothrombin Time 10.0 9.0-12.0 SECONDS Prothromb Time International Ratio 1.0 0.9-1.1 Activated Partial Thromboplast Time 24.9 21.0-31.0 SECONDS Partial Thromboplastin Ratio 1.0 Sodium Level 138 136-145 mmol/L Potassium Level 3.6 3.5-5.1 mmol/L Chloride Level 102 98-107 mmol/L Carbon Dioxide Level 29 21-32 mmol/L Anion Gap 7.0 3-11 mmol/L Blood Urea Nitrogen 24 7-18 mg/dl Creatinine 1.89 0.60-1.40 mg/dl Est Creatinine Clear Calc Drug Dose 51.7 ml/min Estimated GFR () 40.8 Estimated GFR (Non- 35.2 BUN/Creatinine Ratio 12.6 10-20 Random Glucose 161 70-99 mg/dl Calcium Level 8.9 8.5-10.1 mg/dl Total Creatine Kinase 241 39-308 U/L Creatine Kinase MB 2.9 0.5-3.6 ng/ml Creatine Kinase MB Ratio 1.2 0-3.0 Troponin I < 0.015 0-0.045 ng/ml Pro-B-Type Natriuretic Peptide 119 0-900 pg/ml Chemistry Specimen Hemolysis EKG SInus, RBBB, bigeminy - no acute ST elevations or depression - RBBB is new Impression Assessment and Plan 72 y/o M Hx HTN, HPL, DM II, morbid obesity and RAMAN, diastolic CHF - presenting with SOB and severe central CP. The pt reports recent difficulty with volume overload and had increased his Bumex dose beginning 3 weeks ago. Despite this he reports weight gain of approximately 5 pound/wk. He denies any nausea, vomiting or diaphoresis. His pain has not radiated and is described as pressure -like. Initial labs are notable for ARF. An EKG demonstrated a RBBB and bigeminy which were not present previously. No acute elevations or depressions were present. 1) CP - high risk - assigned to telemetry - cont ASA, statin, B jessica - we will avoid any additional NTG as he has a history of R heart failure and had a significant BP drop with SL NTG in the ER. Opiates are provided for any recurrence of CP. Repeat trop is pending on admission. 2) CHF - SOB and weight gain in addition to CXR indicating volume overload. Bumex increase has not been effective. He also receives Aldactone and EOD Metolazone. We have started him on IV Bumex TID. Daily weights, I/O requested. Cardiology consult is pending. Cont Carvedilol. 3) ARF - may be due to CHF or increased Bumex dose. It dose appear that his renal function has been worsening over the past 6 months and he may benefit from follow-up with a horticultural services supervisor upon DC. We have provided IV Bumex as mentioned, so that a repeat AM creatinine would further guide treatment. An FENa would not be helpful presently as he received IV diuretics in the ER. 4) DM II - placed on a SS 5) RAMAN - BiPAP ordered 6) HTN/HPL - Cont Carvedilol, diuretics, statin Full code - Heparin prophylaxis Total time for this admit including review of labs, meds, imaging, EKG - discussion with pt and ER attending - 40 min Resuscitation Status VTE Prophylaxis Will order VTE Prophylaxis: Yes
[2018-04-19] MEDS ORDERED: CARBOHYDRATES FOR HYPOGLYCEMIA PO PRN (01:45)
[2018-04-19] MEDS ORDERED: GLUCOSE 10 TABS/TUBE PO PRN (01:45)
[2018-04-19] MEDS ORDERED: GLUCAGON FOR INJ 1 MG VIAL IM PRN (01:45)
[2018-04-19] MEDS ORDERED: GLUCOSE 40% GEL 15 GM TUBE PO PRN (01:45)
[2018-04-19] MEDS ORDERED: DEXTROSE 50% 50 ML SYR IV PRN (01:45)
[2018-04-19] MEDS: HEPARIN SOD 5000 UNIT/0.5 ML CARP SQ SCH ×3 (05:31→21:08)
[2018-04-19 05:42] LABS: HEMATOCRIT 40.6 % (42-52); HEMOGLOBIN 13.6 g/dL (14.0-18.0); MEAN CELL VOLUME 92.3 fL (80-100); MEAN CORPUSCULAR HEMOGLOBIN 30.9 pg (25-34); MEAN CORPUSCULAR HGB CONC 33.5 g/dl (32-36); MEAN PLATELET VOLUME 10.6 fL (7.4-10.4); PLATELET COUNT 206 K/uL (130-400); RED CELL DISTRIBUTION WIDTH CV 13.9 % (11.5-14.5); RED CELL DISTRIBUTION WIDTH SD 46.5 fL (36.4-46.3); WHITE BLOOD COUNT 10.01 K/uL (4.8-10.8)
[2018-04-19 06:18] LABS: BLOOD UREA NITROGEN 26 mg/dl (7-18); CALCIUM 9.1 mg/dl (8.5-10.1); CARBON DIOXIDE 35 mmol/L (21-32); CREATININE 1.81 mg/dl (0.60-1.40); GLUCOSE 135 mg/dl (70-99); SODIUM 140 mmol/L (136-145)
[2018-04-19] MEDS: BUMETANIDE IV 2 MG in SYRINGE 0 ML IV SCH ×3 (06:44→22:18)
[2018-04-19 06:53] LABS: POTASSIUM 3.4 mmol/L (3.5-5.1)
[2018-04-19] MEDS: INSULIN ASPART 100 UNITS/ML 3 ML PEN SC SCH ×4 (07:00→21:07)
[2018-04-19] MEDS: CARVEDILOL 12.5 MG TAB PO SCH ×2 (07:59→21:04)
[2018-04-19] MEDS: FERROUS GLUCONATE 324 MG TAB PO SCH ×2 (07:59→16:52)
[2018-04-19] MEDS: ATORVASTATIN 20 MG TAB PO SCH (07:59)
[2018-04-19] MEDS: POTASSIUM CHLORIDE 20 MEQ TABCR PO SCH ×3 (08:00→21:04)
[2018-04-19] MEDS: PANTOprazole SOD 40 MG TAB PO SCH (08:00)
[2018-04-19] MEDS: SPIRONOLACTONE 25 MG TAB PO SCH ×2 (08:01→16:52)
[2018-04-19] MEDS: FLUOXETINE HCL 20 MG CAP PO SCH ×2 (08:01→21:04)
[2018-04-19] MEDS: ASPIRIN 81 MG ECTAB PO SCH (08:01)
[2018-04-19] MEDS ORDERED: POTASSIUM CHLORIDE 20 MEQ TABCR PO STA (10:01)
--- NOTE | 2018-04-19 10:46 | Hospitalist Progress Note ---
Hospitalist Progress Note Date of Service Apr 19, 2018. (Dian Adams ., MATILDE) Subjective Pt evaluation today including: conversation w/ patient, conversation w/ family , physical exam, chart review, lab review, review of inpatient medication list Voiding: no voiding problems Mr. Frank denies any chest pain today or over last night. He continues to have some sob and feels fatigued. He has a productive cough but is unsure if sputum has any color to it. His lower extremity edema has improved ROS Constitutional: no chills, aches, sweats or fever Respiratory: see HPI Cardiac: see HPI GI: no abdominal pain, nausea, vomiting, diarrhea or constipation : no dysuria or hesitancy Extremities: no joint pain or weakness Skin: no rash All other systems reviewed and negative (Dian Adams CRNP) Medications Medications Administered Medications (Trade) Dose Ordered Sig/Andrew Route Start Time Stop Time Status Last Admin Dose Admin Aspirin (Aspirin Chew) 324 mg NOW STAT PO 04/18/18 19:41 04/18/18 19:42 DC 04/18/18 20:05 324 MG Nitroglycerin (Nitrostat Tab) 0.4 mg PRN PRN SL 04/18/18 19:45 04/19/18 01:04 DC 04/18/18 20:06 0.4 MG Fentanyl Citrate (Fentanyl Inj) 100 mcg NOW STAT IV 04/18/18 20:45 04/18/18 20:46 DC 04/18/18 20:52 100 MCG Ondansetron HCl (Zofran Inj) 4 mg NOW STAT IV 04/18/18 20:45 04/18/18 20:46 DC 04/18/18 20:51 4 MG Furosemide (Lasix Inj) 40 mg NOW STAT IV 04/18/18 21:09 04/18/18 21:10 DC 04/18/18 21:18 40 MG Aspirin (Ecotrin Tab) 81 mg DAILY PO 04/19/18 09:00 05/19/18 08:59 04/19/18 08:01 81 MG Atorvastatin Calcium (Lipitor Tab) 20 mg DAILY PO 04/19/18 09:00 05/19/18 08:59 04/19/18 07:59 20 MG Carvedilol (Coreg Tab) 12.5 mg BID PO 04/19/18 09:00 05/19/18 08:59 04/19/18 07:59 12.5 MG Ferrous Gluconate (Ferrous Gluconate Tab) 324 mg BID17 PO 04/19/18 09:00 05/19/18 08:59 04/19/18 07:59 324 MG Fluoxetine HCl (Prozac Cap) 20 mg BID PO 04/19/18 09:00 05/19/18 08:59 04/19/18 08:01 20 MG Potassium Chloride (Klor-Con Tab) 20 meq TID PO 04/19/18 09:00 05/19/18 08:59 04/19/18 08:00 20 MEQ Spironolactone (Aldactone Tab) 25 mg BID17 PO 04/19/18 09:00 05/19/18 08:59 04/19/18 08:01 25 MG Pantoprazole Sodium (Protonix Tab) 40 mg QAM PO 04/19/18 09:00 05/19/18 08:59 04/19/18 08:00 40 MG Bumetanide 2 mg/ Syringe 8 ml @ 4 mls/min Q8H IV 04/19/18 07:00 05/19/18 06:59 04/19/18 06:44 4 MLS/MIN Heparin Sodium (Porcine) (Heparin Sq 5000 Unit/0.5ml) 5,000 unit Q8 SQ 04/19/18 06:00 05/19/18 05:59 04/19/18 05:31 5,000 UNIT Potassium Chloride (Klor-Con Tab) 40 meq NOW STAT PO 04/19/18 10:01 04/19/18 10:05 DC 04/19/18 10:21 40 MEQ (Dian Adams, MATILDE) Objective Vital Signs Date Time Temp Pulse Resp B/P (MAP) Pulse Ox O2 Delivery O2 Flow Rate FiO2 04/19/18 08:00 94 Nasal Cannula 2.0 04/19/18 07:54 36.4 75 18 151/89 (109) 94 Room Air 04/19/18 04:00 95 Nasal Cannula 2.0 04/19/18 03:56 36.7 75 18 119/77 (91) 95 Nasal Cannula 2.0 04/19/18 00:30 36.7 80 116/76 94 Nasal Cannula 2.0 04/18/18 23:06 76 20 131/64 99 Nasal Cannula 2.0 04/18/18 22:33 79 20 122/72 99 Nasal Cannula 4.0 04/18/18 22:00 84 20 116/77 98 Room Air 04/18/18 21:15 76 19 122/73 98 Nasal Cannula 4.0 04/18/18 21:00 78 13 109/68 99 Nasal Cannula 4.0 04/18/18 20:40 92 20 114/79 100 Nasal Cannula 4.0 04/18/18 20:19 91 20 112/75 95 Room Air 04/18/18 20:15 91 95 Room Air 04/18/18 20:10 91 27 81/58 86 Room Air 04/18/18 20:09 95 Room Air 04/18/18 20:05 96 16 143/65 95 Room Air 04/18/18 19:54 47 04/18/18 19:31 36.6 65 18 146/63 96 Room Air (Dian Adams CRNP) Physical Exam Notes: General: no distress Eyes: normal inspection, PERLL Respiratory: chest non tender, clear to auscultation, normal breath sounds, no respiratory distress, no accessory muscle use Cardiac: regular rate and rhythm, no rub or gallop, no murmur, no edema, no jvd GI/: active bowel sounds, no abd pain or tenderness, soft, non distended Extremities: normal range of motion, normal strength, non tender Neuro/Psych: alert and oriented x 3, normal mood and affect Skin: normal color, dry (Dian Adams CRNP) Laboratory Results Last 24 Hours Test 04/18/18 20:11 04/18/18 23:41 04/19/18 05:25 04/19/18 06:30 White Blood Count 9.85 K/uL 10.01 K/uL Red Blood Count 4.60 M/uL 4.40 M/uL Hemoglobin 14.0 g/dL 13.6 g/dL Hematocrit 42.4 % 40.6 % Mean Corpuscular Volume 92.2 fL 92.3 fL Mean Corpuscular Hemoglobin 30.4 pg 30.9 pg Mean Corpuscular Hemoglobin Concent 33.0 g/dl 33.5 g/dl Platelet Count 227 K/uL 206 K/uL Mean Platelet Volume 10.8 fL 10.6 fL Neutrophils (%) (Auto) 52.1 % Lymphocytes (%) (Auto) 37.3 % Monocytes (%) (Auto) 7.6 % Eosinophils (%) (Auto) 2.4 % Basophils (%) (Auto) 0.3 % Neutrophils # (Auto) 5.13 K/uL Lymphocytes # (Auto) 3.67 K/uL Monocytes # (Auto) 0.75 K/uL Eosinophils # (Auto) 0.24 K/uL Basophils # (Auto) 0.03 K/uL RDW Standard Deviation 45.7 fL 46.5 fL RDW Coefficient of Variation 13.7 % 13.9 % Immature Granulocyte % (Auto) 0.3 % Immature Granulocyte # (Auto) 0.03 K/uL Prothrombin Time 10.0 SECONDS Prothromb Time International Ratio 1.0 Activated Partial Thromboplast Time 24.9 SECONDS Partial Thromboplastin Ratio 1.0 Sodium Level 138 mmol/L 140 mmol/L Potassium Level 3.6 mmol/L mmol/L 3.4 mmol/L Chloride Level 102 mmol/L 100 mmol/L Carbon Dioxide Level 29 mmol/L 35 mmol/L Anion Gap 7.0 mmol/L 5.0 mmol/L Blood Urea Nitrogen 24 mg/dl 26 mg/dl Creatinine 1.89 mg/dl 1.81 mg/dl Est Creatinine Clear Calc Drug Dose 51.7 ml/min 53.3 ml/min Estimated GFR () 40.8 42.9 Estimated GFR (Non- 35.2 37.1 BUN/Creatinine Ratio 12.6 14.2 Random Glucose 161 mg/dl 135 mg/dl Calcium Level 8.9 mg/dl 9.1 mg/dl Total Creatine Kinase 241 U/L Creatine Kinase MB 2.9 ng/ml Creatine Kinase MB Ratio 1.2 Troponin I < 0.015 ng/ml < 0.015 ng/ml < 0.015 ng/ml Pro-B-Type Natriuretic Peptide 119 pg/ml Chemistry Specimen Hemolysis Magnesium Level mg/dl 2.0 mg/dl Test 04/19/18 07:20 Bedside Glucose 120 mg/dl (Dian Adams, MATILDE) Assessment and Plan Mr. Frank is a 72 year old man here with chest pain and diastolic CHF CP - continue telemetry monitoring, no events overnight on monitor - cont ASA, statin, B jessica - we will avoid any additional NTG as he has a history of R heart failure and had a significant BP drop with SL NTG in the ER, morphine for chest pain - trop negative x 3 - cardiology consult Diastolic CHF - SOB and weight gain in addition to CXR indicating volume overload. - continue IV Bumex q8h - continue Aldactone and Metolazone. - continue Daily weights, I&Os - Cont Carvedilol. - cardiology consult ARF, CKD III - minimal improvement today - creat 1.81, baseline appears to be 1.5-1.6 - may improve as CHF exacerbation improves but may also be in part due to diuretics, will continue to monitor with daily prps and adapt diuretic regimen as necessary Hypokalemia - K 3.4 today - replaced DM II - continue bsgs ac & hs, SS - hold home metformin RAMAN - BiPAP ordered HTN/HPL - Cont Carvedilol, diuretics, statin Full code - Heparin prophylaxis (Dian Adams ., MATILDE) Attending attestation - Pt seen/examined, chart reviewed, care plan d/w DREDGE PIPEMANDREAD Adams. I agree w/ the velazquez components of her documentation. Pt feels much better today w/ less dyspnea. Tele stable. He reports he doesn't have his BIPAP unit from home for hospital use. VSS afebrile net neg fluid balance of 1.6 L gen - obese, NAD neck - no obvious JVD heart - RRR lungs - CTA b/l, minimally decreased BS bases abd - soft, obese, no HSM ext - trace edema b/l BMP with Cr 1.8 Troponins x 3 negative A/P: acute/chronic diastolic CHF - improving; continue IV bumex; appreciate cardiology assistance. HTN - cont home meds. RAMAN - placed ordered for hospital BIPAP since he does not have home unit. CKD stage 2-3 - BMP/mag in am. ave RIVERA MD (Damian Rivera MD)
--- NOTE | 2018-04-19 11:49 | CARDIOLOGY CONSULTATION ---
DATE OF CONSULTATION: 04/19/2018 REFERRING PHYSICIAN: Dr. Fernandez. PRIMARY CARE PHYSICIAN: Dr. Blakely. INDICATIONS: Congestive heart failure, shortness of breath, chest pressure, tightness. HISTORY OF PRESENT ILLNESS: Patient is a 72-year-old male with complex past medical history includin. Longstanding hypertensive heart disease with chronic diastolic heart failure, right greater than left of nearly 20 years duration with prior diagnosis of restrictive cardiomyopathy. 2. History of obstructive sleep apnea and chronic obesity with hypoventilation syndrome. 3. Past diagnostic cardiac catheterizations on most recent study 2005 without obstructive coronary disease. 4. Past hospitalization in October of 2017 with decompensated diastolic heart failure, possibly exacerbated by upper respiratory infection. Patient presents now once again with symptoms of worsening edema, shortness of breath and chest tightness. His last visit seen in an outpatient setting on 04/06/2018 was notable at that time of greater than 20-pound weight gain from hospital discharge in October. Patient's medications were adjusted at that time to increase diuretics. Patient notes, however, difficulty with compliance on increased regimen, had not resumed use of CPAP which he had also held, presents this admission yesterday having noted symptoms of increasing dyspnea, abdominal bloating and chest tightness with resultant ER presentation, he was given 1 sublingual nitroglycerin and evaluation with associated marked hypotension. He has had no further chest pain since admission, has begun on IV diuretics with initiation of diuresis, has been wearing oxygen and since hospitalization notes no fevers, chills or productive cough. Notes no bleeding difficulties. Notes no melena, hematochezia, dysuria or hematuria. ALLERGIES: IODINE. MEDICATIONS: Prior to hospitalization were Bumex 1 mg 2 tablets b.i.d. though patient has only been taking it once per day, Zaroxolyn 2.5 mg every other day, potassium chloride 20 mEq 3 times per day, spironolactone 25 mg b.i.d., metformin 500 mg daily, atorvastatin 20 mg daily, ferrous gluconate 324 mg twice per day, carvedilol 12.5 mg twice per day, fluoxetine 20 mg b.i.d., aspirin 81 mg per day, omeprazole 20 mg p.o. every day. PAST MEDICAL HISTORY: In addition to above, patient had difficulties with recurrent depression, currently quiescent. PAST SURGICAL HISTORY: Notable for prior left knee arthroplasty, cholecystectomy, remote inguinal hernia repair. FAMILY HISTORY: Not notable specifically for cardiac disease. SOCIAL HISTORY: Patient has prior history of 20-pack year tobacco use, discontinued in 1974. Uses no alcoholic beverages. PHYSICAL EXAMINATION: GENERAL: Patient is an obese, age-appropriate male, currently denying any acute complaint. VITAL SIGNS: Heart rate 75, blood pressure is 151/89, O2 saturations 94% on 2 liters nasal cannula. HEENT: Normocephalic and atraumatic. Face is plethoric. NECK: Thick. LUNGS: Reveal diminished breath sounds diffusely. CARDIOVASCULAR: Regular. There is no S3 gallop with distant heart sounds present. ABDOMEN: Obese, soft, moderate distention. EXTREMITIES: Reveal 2+ lower extremity edema. There are intact distal pulses. NEUROLOGIC: Patient is alert and answering questions. IMAGING: EKG reveals sinus rhythm with atrial and ventricular ectopy. Telemetry reveals no atrial arrhythmias or pauses. LABORATORY STUDIES: White cell count 10.0, hemoglobin 13.6, hematocrit is 40.5, platelet counts 206. Sodium is 140, potassium is 3.4, chloride is 100, bicarbonate is 35, BUN is 25, creatinine is 1.8. Troponins serially are negative x3 at less than 0.015. Chest x-ray reveals increased vascular markings, low volumes. IMPRESSION: A 72-year-old male with longstanding history of hypertension, hypertensive heart disease and chronic diastolic heart failure, presents with [id number] decompensation. He was last hospitalized with similar event in October of 2017 and weight is now up again 5-6 kilograms since last hospital discharge. He was seen recently in the outpatient setting and diuretics adjusted upward so he was unable to comply with regimen. RECOMMENDATIONS: We will treat underlying right heart failure and symptoms. I agree with IV diuretics, watching renal function closely. We will once again need to reinstitute CPAP supplementation, hopefully take advantage of doing a hospitalization in order to do so. Suspect at least another 24-48 hours of diuresis to aid in function. Currently, no signs of acute myocardial ischemia, last cardiac catheterization in 2005 and relatively remote to current event. Will follow closely for any signs or symptoms decline. He has had no atrial arrhythmias observed. DVT prophylaxis has been ordered. CHF instructions begun.
[2018-04-20] VITALS (11 sets, daily range): BP systolic 107–144; BP diastolic 72–87; PULSE 62–87; TEMP 36.5–36.9; O2SAT 93–97
[2018-04-20] MEDS: HEPARIN SOD 5000 UNIT/0.5 ML CARP SQ SCH ×3 (06:26→21:05)
[2018-04-20] MEDS: BUMETANIDE IV 2 MG in SYRINGE 0 ML IV SCH ×3 (06:28→22:40)
[2018-04-20] MEDS: INSULIN ASPART 100 UNITS/ML 3 ML PEN SC SCH ×4 (07:00→20:58)
[2018-04-20] MEDS: POTASSIUM CHLORIDE 20 MEQ TABCR PO SCH ×3 (07:59→20:58)
[2018-04-20] MEDS: FLUOXETINE HCL 20 MG CAP PO SCH ×2 (07:59→20:58)
[2018-04-20] MEDS: PANTOprazole SOD 40 MG TAB PO SCH (08:00)
[2018-04-20] MEDS: FERROUS GLUCONATE 324 MG TAB PO SCH ×2 (08:00→16:34)
[2018-04-20] MEDS: ASPIRIN 81 MG ECTAB PO SCH (08:00)
[2018-04-20] MEDS: CARVEDILOL 12.5 MG TAB PO SCH ×2 (08:00→20:58)
[2018-04-20] MEDS: ATORVASTATIN 20 MG TAB PO SCH (08:00)
[2018-04-20] MEDS: SPIRONOLACTONE 25 MG TAB PO SCH ×2 (08:00→16:33)
--- NOTE | 2018-04-20 08:02 | Clinical Documentation Query ---
ALVARO Renee : CLINICAL DOCUMENTATION QUERY Documentation includes the following: Diastolic CHF - SOB and weight gain in addition to CXR indicating volume overload. - continue IV Bumex q8h - continue Aldactone and Metolazone. - continue Daily weights, I&Os - Cont Carvedilol. - cardiology consult Documented history of diastolic CHF. As appropriate, consider explicit documentation as suggested below. Thank you In your clinical opinion is this patient being managed for: ( x ) Acute on chronic diastolic CHF ( ) Not Agree ( ) Other explanation of clinical findings (No explanation is considered a No Response) ( ) Unable to determine ( ) Need to Discuss (Phone CDS or qliq) (No discussion is considered a No Response) The medical record reflects the following clinical findings, treatment, and risk factors. Clinical Indicators: As above Treatment: As above Risk Factors: Age, obesity, hypertension, CAIT Please clarify and document your clinical opinion in the progress notes and discharge summary. Terms such as "probable", "suspected", "likely", "questionable", "possible", or "still to be ruled out" are acceptable. IF IN AGREEMENT, YOU MUST DOCUMENT ABOVE DIAGNOSTIC STATEMENT IN DAILY PROGRESS NOTES AND DISCHARGE SUMMARY. This document is not part of the patient's record. Thank You, Joaquim Harris, RANDI [phone]
[2018-04-20 08:37] LABS: CALCIUM 9.5 mg/dl (8.5-10.1); CREATININE 1.84 mg/dl (0.60-1.40); POTASSIUM 3.5 mmol/L (3.5-5.1)
[2018-04-20] MEDS ORDERED: POTASSIUM CHLORIDE 20 MEQ TABCR PO STA (10:42)
--- NOTE | 2018-04-20 16:15 | Hospitalist Progress Note ---
Hospitalist Progress Note Date of Service Apr 20, 2018. Subjective Pt evaluation today including: conversation w/ patient, conversation w/ family Feeling less SOB, no further chest tightness since diuresis. No other concerns. Tele with NSR All Other Systems: Reviewed and Negative Objective Vital Signs Date Time Temp Pulse Resp B/P (MAP) Pulse Ox O2 Delivery O2 Flow Rate FiO2 04/20/18 15:38 36.8 81 18 125/74 (91) 96 04/20/18 12:00 93 Room Air 04/20/18 12:00 80 04/20/18 10:48 36.8 77 20 107/72 (84) 96 Room Air 04/20/18 08:00 93 Room Air 04/20/18 07:09 36.7 79 20 131/80 (97) 95 Room Air 04/20/18 04:00 BiPAP 04/20/18 03:45 36.6 70 20 144/87 (106) 96 Room Air 04/20/18 02:21 62 96 2.0 04/20/18 00:00 97 Nasal Cannula 2.0 04/19/18 23:30 36.5 76 20 114/68 (83) 97 BiPAP 04/19/18 23:05 53 98 2.0 04/19/18 20:00 98 Nasal Cannula 2.0 04/19/18 19:48 37.1 80 18 117/75 (89) 98 Nasal Cannula 2.0 Physical Exam General Appearance: WD/WN, no apparent distress, + obese Eyes: normal inspection, sclerae normal ENT: hearing grossly normal Neck: trachea midline Respiratory/Chest: no respiratory distress, no accessory muscle use, + crackles (at bases) Cardiovascular: regular rate, rhythm, no murmur, + pertinent finding (trace pitting edema legs bilat) Abdomen: normal bowel sounds, non tender, soft Extremities: no calf tenderness Neurologic/Psychiatric: alert, normal mood/affect, oriented x 3 Skin: normal color, warm/dry, no rash Laboratory Results Last 24 Hours Test 04/19/18 16:26 04/19/18 20:22 04/20/18 07:14 04/20/18 07:43 Bedside Glucose 166 mg/dl 171 mg/dl 139 mg/dl Sodium Level 136 mmol/L Potassium Level 3.5 mmol/L Chloride Level 94 mmol/L Carbon Dioxide Level 35 mmol/L Anion Gap 6.0 mmol/L Blood Urea Nitrogen 26 mg/dl Creatinine 1.84 mg/dl Est Creatinine Clear Calc Drug Dose 52.1 ml/min Estimated GFR () 42.1 Estimated GFR (Non- 36.3 BUN/Creatinine Ratio 14.1 Random Glucose 133 mg/dl Calcium Level 9.5 mg/dl Magnesium Level 2.1 mg/dl Test 04/20/18 11:55 Bedside Glucose 106 mg/dl Assessment and Plan Mr. Frank is a 72 year old man here with chest pain and acute on chronic diastolic CHF Acute/chronic diastolic CHF - continues to diurese and clinically improving. Now net negative 3.3L, -5 kg body weight -continue continue IV bumex tid - appreciate cardiology assistance. -replace K+ -strict I/Os, low Na+ diet -fluid restrict to 1800 mL -daily weights -continue Aldactone, prn metolazone HTN - controlled -cont home meds. RAMAN - stable -has BiPAP from home now CAIT in setting of CKD stage III- baseline hand sole sewer around 1.5,was 1.8 on admission and remains stable there -avoid nephrotoxins -renally dose meds -follow BMP especially with diuresis CP-likely secondary to CHF. trop neg x 3 - continue telemetry monitoring, no events overnight on monitor - cont ASA, statin, B jessica - we will avoid any additional NTG as he has a history of R heart failure and had a significant BP drop with SL NTG in the ER, morphine for chest pain - cardiology consult appreciated Hypokalemia -improved -continue replacement in settin gof aggressive loop diuretics DM II, not on roasterman insulin, controlled, last A1C 7.1% in 10/2017 - continue bsgs ac & hs, SS - hold home metformin -check HgbA1C in AM HL-continue statin Full code - Heparin prophylaxis
--- NOTE | 2018-04-20 16:45 | PROGRESS NOTE ---
DATE: 04/20/2018 The patient seen and examined. Chart, medications, telemetry reviewed. SUBJECTIVE: The patient feels improved overnight. Continues to diurese briskly. Weight is down approximately 2 kg. Leg edema is improved and abdominal girth is slightly less. Was able to use BiPAP in hospital overnight without difficulty. OBJECTIVE: VITAL SIGNS: Heart rate is 79, blood pressure is 131/80, O2 saturation is 93% on room air. NECK: Thick. There is no distinct jugular venous distention. LUNGS: Reveal diminished breath sounds, but are predominantly clear. CARDIOVASCULAR: Regular. Telemetry reveals no arrhythmias. ABDOMEN: Obese, soft. EXTREMITIES: Reveal chronic stasis edema. LABORATORY STUDIES: This morning; sodium is 136, potassium is 3.5, chloride is 94, bicarbonate is 35, BUN is 26, creatinine is 1.84 and stable. IMPRESSION: A complex 72-year-old male with issues as follows 1. Acute on chronic diastolic heart failure, right greater than left. 2. Underlying history of morbid obesity, obstructive sleep apnea, longstanding hypertensive heart disease. The patient is improving with IV diuretics. 3. Chronic renal insufficiency is noted, is maintaining stable creatinines with IV diuresis. RECOMMENDATIONS: Continue therapies as already begun, supplementation of potassium given, aid in contraction alkalosis and hopefully ayoub off atrial arrhythmias while diuresis being performed. The patient has demonstrated clinical improvement since admission. Discussed in detail with the patient.
[2018-04-21] VITALS (7 sets, daily range): BP systolic 112–138; BP diastolic 68–83; PULSE 71–84; TEMP 36.5–36.9; O2SAT 91–95
[2018-04-21] MEDS: HEPARIN SOD 5000 UNIT/0.5 ML CARP SQ SCH ×3 (05:58→22:04)
[2018-04-21] MEDS: BUMETANIDE IV 2 MG in SYRINGE 0 ML IV SCH ×3 (06:31→21:53)
[2018-04-21 06:46] LABS: CALCIUM 9.1 mg/dl (8.5-10.1); CREATININE 1.89 mg/dl (0.60-1.40); POTASSIUM 3.9 mmol/L (3.5-5.1)
[2018-04-21] MEDS: INSULIN ASPART 100 UNITS/ML 3 ML PEN SC SCH ×4 (07:38→21:00)
[2018-04-21] MEDS: ATORVASTATIN 20 MG TAB PO SCH (08:00)
[2018-04-21] MEDS: PANTOprazole SOD 40 MG TAB PO SCH (08:00)
[2018-04-21] MEDS: FERROUS GLUCONATE 324 MG TAB PO SCH ×2 (08:00→17:27)
[2018-04-21] MEDS: FLUOXETINE HCL 20 MG CAP PO SCH ×2 (08:01→21:51)
[2018-04-21] MEDS: POTASSIUM CHLORIDE 20 MEQ TABCR PO SCH (08:01)
[2018-04-21] MEDS: ASPIRIN 81 MG ECTAB PO SCH (08:01)
[2018-04-21] MEDS: SPIRONOLACTONE 25 MG TAB PO SCH ×2 (08:01→17:27)
[2018-04-21] MEDS: CARVEDILOL 12.5 MG TAB PO SCH ×2 (08:01→21:51)
[2018-04-21 08:46] LABS: HEMOGLOBIN A1C 6.5 % (4.5-5.6)
--- NOTE | 2018-04-21 11:19 | PROGRESS NOTE ---
DATE: 04/21/2018 The patient seen and examined. Chart, medications, telemetry reviewed. SUBJECTIVE: Continues to demonstrate gradual improvement, though feels urination is slowed slightly. Continues to have negative urine output. Renal functions remained stable. Notes no chest pains or discomfort. Lower extremity edema is improved. OBJECTIVE: VITAL SIGNS: Heart rate is 71, blood pressure is 115/71. NECK: Thick. There is no distinct jugular venous distention. LUNGS: Reveal diminished breath sounds, but are clear. CARDIOVASCULAR: Regular. There is no S3 gallop. ABDOMEN: Soft, nontender, slightly less distended. EXTREMITIES: Markedly improved lower extremity edema. LABORATORY STUDIES: Sodium is 136, potassium is 3.9, chloride is 95, bicarbonate is 35, BUN is 27, creatinine is 1.89. IMPRESSION: A 72-year-old male with acute on chronic diastolic heart failure, clinically improving with IV diuretics. Would recommend continuing the IV diuretics additional 24 hours and attempt to return to oral dosing. He is on appropriate medical therapies currently. Heart rates have been well controlled without atrial arrhythmias. Renal function remains stable with diuresing. We will continue to follow the patient.
--- NOTE | 2018-04-21 12:35 | Hospitalist Progress Note ---
Hospitalist Progress Note Date of Service Apr 21, 2018. Subjective Pt evaluation today including: conversation w/ patient Voiding: no voiding problems Patient feels well today. Denies shortness of breath or chest tightness. He is still making plenty of urine. He is ambulating the halls without shortness of breath. Telemetry with normal sinus rhythm with PACs All Other Systems: Reviewed and Negative Objective Vital Signs Date Time Temp Pulse Resp B/P (MAP) Pulse Ox O2 Delivery O2 Flow Rate FiO2 04/21/18 08:10 Room Air 04/21/18 06:56 36.7 71 17 115/71 (86) 95 Room Air 04/21/18 04:56 36.5 80 18 138/83 (101) 93 Room Air 04/21/18 00:00 Room Air 04/20/18 23:35 36.9 87 20 128/77 (94) 94 Room Air 04/20/18 20:00 Room Air 04/20/18 19:33 36.5 87 18 133/87 (102) 96 Room Air 04/20/18 16:00 93 Room Air 04/20/18 15:38 36.8 81 18 125/74 (91) 96 Physical Exam General Appearance: WD/WN, no apparent distress, + obese Eyes: normal inspection, EOMI ENT: hearing grossly normal Neck: trachea midline Respiratory/Chest: lungs clear, normal breath sounds, no respiratory distress, no accessory muscle use Cardiovascular: regular rate, rhythm, no edema, no murmur Abdomen: normal bowel sounds, non tender, soft Extremities: non-tender, normal inspection, no pedal edema, no calf tenderness Neurologic/Psychiatric: alert, normal mood/affect, oriented x 3 Skin: normal color, warm/dry, no rash Laboratory Results Last 24 Hours Test 04/20/18 16:24 04/20/18 20:33 04/21/18 05:23 04/21/18 07:19 Bedside Glucose 132 mg/dl 171 mg/dl 139 mg/dl Sodium Level 136 mmol/L Potassium Level 3.9 mmol/L Chloride Level 95 mmol/L Carbon Dioxide Level 35 mmol/L Anion Gap 6.0 mmol/L Blood Urea Nitrogen 27 mg/dl Creatinine 1.89 mg/dl Est Creatinine Clear Calc Drug Dose 50.8 ml/min Estimated GFR () 40.8 Estimated GFR (Non- 35.2 BUN/Creatinine Ratio 14.1 Random Glucose 137 mg/dl Estimated Average Glucose 140 mg/dl Hemoglobin A1c 6.5 % Calcium Level 9.1 mg/dl Magnesium Level 2.3 mg/dl Assessment and Plan Mr. Frank is a 72 year old man here with chest pain and acute on chronic diastolic CHF Acute/chronic diastolic CHF -has diuresed a great deal and feels improved. Now net negative 4.1 L, -5 kg body weight -continue continue IV bumex 2 mg tid along with potassium replacement and likely switch to oral diuretics tomorrow - appreciate cardiology assistance-recommend 1 more day to stay for IV diuresis. -replace K+ and increased to 30 mEq 3 times daily -strict I/Os, low Na+ diet -fluid restrict to 1800 mL -daily weights -continue Aldactone, prn metolazone HTN - controlled -cont home meds. RAMAN - stable -has BiPAP from home now CAIT in setting of CKD stage III- baseline box maker around 1.5,was 1.8 on admission and remains stable there -avoid nephrotoxins -renally dose meds -follow BMP especially with diuresis CP-likely secondary to CHF. 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
[2018-04-21] MEDS ORDERED: POTASSIUM CHLORIDE 20 MEQ TABCR PO SCH (14:00)
[2018-04-21] MEDS: POTASSIUM CHLORIDE 10 MEQ TABCR PO SCH ×2 (14:28→21:51)
[2018-04-22 00:01] VITALS: O2SAT 93
[2018-04-22 03:48] VITALS: BP 128/82; PULSE 75; TEMP 36.6; O2SAT 94
[2018-04-22] MEDS: HEPARIN SOD 5000 UNIT/0.5 ML CARP SQ SCH (05:57)
[2018-04-22 06:46] LABS: CALCIUM 9.3 mg/dl (8.5-10.1); CREATININE 1.93 mg/dl (0.60-1.40); POTASSIUM 4.1 mmol/L (3.5-5.1)
[2018-04-22 07:08] VITALS: BP 148/89; PULSE 73; TEMP 36.4; O2SAT 97
[2018-04-22] MEDS: FLUOXETINE HCL 20 MG CAP PO SCH (08:53)
[2018-04-22] MEDS: PANTOprazole SOD 40 MG TAB PO SCH (08:53)
[2018-04-22] MEDS: FERROUS GLUCONATE 324 MG TAB PO SCH ×2 (08:53→16:48)
[2018-04-22] MEDS: SPIRONOLACTONE 25 MG TAB PO SCH ×2 (08:54→16:47)
[2018-04-22] MEDS: CARVEDILOL 12.5 MG TAB PO SCH (08:54)
[2018-04-22] MEDS: ASPIRIN 81 MG ECTAB PO SCH (08:54)
[2018-04-22] MEDS: ATORVASTATIN 20 MG TAB PO SCH (08:54)
[2018-04-22] MEDS: INSULIN ASPART 100 UNITS/ML 3 ML PEN SC SCH ×3 (08:58→16:46)
[2018-04-22] MEDS ORDERED: POTASSIUM CHLORIDE 10 MEQ TABCR PO SCH (09:00)
[2018-04-22] MEDS ORDERED: BUMETANIDE 1 MG TAB PO SCH (09:00)
--- NOTE | 2018-04-22 10:05 | PROGRESS NOTE ---
DATE: 04/22/2018 The patient seen and examined. Chart, medications, telemetry reviewed. SUBJECTIVE: The patient once again feels improved, abdominal distention less pronounced. Leg edema is substantially improved. Notes no chest pain or discomfort. Ambulatory in room. Telemetry reveals no arrhythmias. OBJECTIVE: VITAL SIGNS: Heart rate is 73. Blood pressure is 148/89. NECK: Thick. There is no distinct jugular venous distention. LUNGS: Notable for mildly diminished breath sounds, but are clear. CARDIOVASCULAR: Regular. There is no S3 gallop. ABDOMEN: Soft. EXTREMITIES: Minimal distention. Obese. There is trace pedal edema only. LABORATORY DATA: Sodium is 137, potassium is 4.1, chloride is 96, bicarbonate is 37, BUN is 28, creatinine is 1.93. IMPRESSION: A 72-year-old male with acute on chronic decompensated right heart failure, clinically improved with IV diuretics, now with oral regimen. Would continue current oral regimen on discharge including metolazone 2.5 mg 3 days per week. He has anticipated followup with cardiology on 05/09/2018 with a followup with primary care physician. Would also recommend given renal insufficiency, a referral to nephrology. Consider renal ultrasound prior to hospital discharge. Patient is aware of recommendations. Once again urged of sodium and fluid restriction, daily weights.
[2018-04-22 11:14] VITALS: BP 126/81; PULSE 75; TEMP 36.6; O2SAT 95
[2018-04-22] MEDS ORDERED: METO2.5T PO (13:08)
[2018-04-22 15:30] VITALS: BP 134/87; PULSE 86; TEMP 36.6; O2SAT 94
--- NOTE | 2018-04-22 16:15 | DIAGNOSTIC IMAGING REPORT ---
EXAMINATION: RENAL ULTRASOUND CLINICAL HISTORY: worsening renal failure COMPARISON STUDY: CT scan performed November 2009 FINDINGS: The right kidney measures 11.4 cm. The left kidney measures 12 cm. There is no evidence of hydronephrosis. There are no renal masses. Both kidneys demonstrate a lobulated renal contour The bladder was nearly empty at the time scanning. A left ureteral jet was visualized. The right ureteral jet was not identified. There is borderline bladder wall thickening The study is somewhat limited from technical standpoint due to the patient's body habitus. IMPRESSION : 1. No evidence of hydronephrosis. 2. Lobulated renal contours. No focal masses identified Electronically signed by: Tre Cedillo M.D. 04/22/2018 4:14 PM Dictated Date/Time: 04/22/2018 4:12 PM
--- NOTE | 2018-04-22 16:42 | Discharge Instructions ---
Discharge Instructions Date of Service Apr 22, 2018. Admission Reason for Admission: Chest Pain, Chf Discharge Discharge Diagnosis / Problem: Acute on chronic diastolic CHF, chest pain Discharge Goals Goal(s): Improve disease control, Diagnostic testing, Therapeutic intervention Activity Recommendations Activity Limitations: as noted below Exercise/Sports Limitations: gradually increase as tolerated Shower/Bathe: no limitations . Instructions / Follow-Up Instructions / Follow-Up You were admitted with congestive heart failure and given diuretics to take off lots of excess fluid. Your kidney function is gradually worsening and you should see a kidney specialist called a plate finisher as an outpatient. Your family doctor can refer you for this. Because of your worsening kidney function , you should stop taking the Metformin for your diabetes. Your blood sugars have been very well controlled here, but please talk to your family doctor about a replacement medication to control your blood sugars in the future. It is important to follow the instructions as below for your congestive heart failure. Please follow-up with your primary care provider within 1 week. Please follow- up with bulldogger in approximately 2-3 weeks as scheduled for you. Call your Primary Care doctor if any of the following symptoms or problems start or get worse: * Shortness of breath or difficulty breathing * Wake up at night short of breath * Chest pain * Cough * Swelling of your hands, feet, or legs * More fatigued or tired with your normal activity * Palpitations - sudden fast heart beats WEIGHT * Weigh yourself every morning after using the bathroom. * Use the same scale. * Wear the same amount of clothing. * Write your weight down on a chart. * Call your Primary Care doctor if you gain more than 2-3 pounds in 1-2 days. MEDICATIONS * Use this discharge instruction sheet for medication instructions. * Take your medications at the time your doctor ordered. * Do not skip a dose of your medicines. * If you miss a dose of medicine, take it as soon as possible, but DO NOT DOUBLE A DOSE. * Read your medicine information when you get home. * Know all of the side effects of your medicine. If in doubt, ask your pharmacist * Call your Primary Care doctor's office if you have any side effects. * Be sure all of your doctors know what medicine and herbs you take (including cold, flu, and herbal medicine). Take the following with you to your follow-up doctor appointments: * Weight Chart * Medication List * List of questions Do not drink excessive alcohol, beer or wine. Current Hospital Diet Patient's current hospital diet: Diabetes Type 2 Diet, Low Sodium Diet (2gm Na) Discharge Diet Recommended Diet: Low Sodium Diet (2gm Na), Diabetes Type 2 Diet Fluid Restriction: 1800 ml (7 cups) Procedures Procedures Performed: Echocardiogram Chest x-ray Renal ultrasound Pending Studies Studies pending at discharge: no Laboratory Results Last 24 Hours Test 04/21/18 20:56 04/22/18 05:35 04/22/18 06:57 04/22/18 11:21 Bedside Glucose 132 mg/dl 135 mg/dl 123 mg/dl Sodium Level 137 mmol/L Potassium Level 4.1 mmol/L Chloride Level 96 mmol/L Carbon Dioxide Level 37 mmol/L Anion Gap 4.0 mmol/L Blood Urea Nitrogen 28 mg/dl Creatinine 1.93 mg/dl Est Creatinine Clear Calc Drug Dose 49.7 ml/min Estimated GFR () 39.7 Estimated GFR (Non- 34.3 BUN/Creatinine Ratio 14.5 Random Glucose 128 mg/dl Calcium Level 9.3 mg/dl Magnesium Level 2.4 mg/dl Hemoglobin A1c Test 04/21/18 05:23 Range/Units Estimated Average Glucose 140 mg/dl Hemoglobin A1c 6.5 H 4.5-5.6 % Medical Emergencies . Who to Call and When: Call 911 or go to the Emergency Room if: * If at any time you feel your situation is an emergency * You have tightness or pain in your chest that does not go away with rest or Nitroglycerin * You are very short of breath even with rest . Non-Emergent Contact Non-Emergency issues call your: Primary Care Provider, [facility] Call Non-Emergent contact if: you have any medication questions . . "Provider Documentation" section prepared by Deb Riddle. .
--- NOTE | 2018-04-22 16:49 | Discharge Summary ---
Discharge Summary Date of Service Apr 22, 2018. Discharge Summary Admission Date: Apr 19, 2018 at 13:46 Discharge Date: Apr 22, 2018 Discharge Disposition: Home Principal Diagnosis: Acute on chronic diastolic CHF, chest pain Problems/Secondary Diagnoses: HTN RAMAN on CPAP CAIT in setting of CKD stage III Hypotensive response to nitroglycerin Hypokalemia DM II, not on snf insulin, controlled Dyslipidemia Obesity, BMI 41.1 Immunizations: Have You Had Influenza Vaccine: Yes History of Tetanus Vaccine?: Unknown History of Pneumococcal: Yes History of Hepatitis B Vaccine: No Procedures: Echocardiogram Chest x-ray Renal ultrasound Consultations: Cardiology Medication Reconciliation Changed Medications: Metolazone (Zaroxolyn) 2.5 Mg Tab 2.5 MG PO 3XWK for 30 Days, TAB (Changed from: Q2D) on Monday Continued Medications: Aspirin (Aspirin Ec) 81 Mg Tab 81 MG PO DAILY Atorvastatin (Lipitor) 20 Mg Tab 20 MG PO DAILY Budesonide/Formoterol Fumarate (Symbicort 160/4.5 Inhaler) 120 Puffs/ Aero 2 PUFF INH BID PRN for SOB/Wheezing Bumetanide (Bumetanide) 1 Mg Tab 2 MG PO BID Carvedilol (Coreg) 12.5 Mg Tab 12.5 MG PO BID, TAB Celecoxib (Celecoxib) 200 Mg Cap 200 MG PO DAILY Ferrous Gluconate (Iron Supplement) 324 Mg Tab 324 MG PO BID Fluoxetine HCl (Fluoxetine HCl) 20 Mg Cap 20 MG PO BID Omeprazole (Prilosec) 20 Mg Capcr 20 MG PO QAM, 0 Refills Potassium Ext Rel (Klor-Con) 20 Meq Tabcr 20 MEQ PO TID, TAB Spironolactone (Aldactone) 25 Mg Tab 25 MG PO BID/AM Discontinued Medications: Metformin Hcl (Glucophage) 500 Mg Tab 500 MG PO DAILY/BREAKFAST, TAB Discharge Exam Patient feeling much improved. Not short of breath. No chest pain since admission. He has diuresed quite a bit. Telemetry with normal sinus rhythm, PACs, rates in the 70s. Physical Exam General Appearance: WD/WN, no apparent distress, + obese Eyes: normal inspection, EOMI ENT: hearing grossly normal Neck: trachea midline Respiratory/Chest: lungs clear, normal breath sounds, no respiratory distress, no accessory muscle use Cardiovascular: regular rate, rhythm, no edema, no murmur Abdomen: normal bowel sounds, non tender, soft Extremities: non-tender, normal inspection, no pedal edema, no calf tenderness Neurologic/Psychiatric: alert, normal mood/affect, oriented x 3 Skin: normal color, warm/dry, no rash Review of Systems: Constitutional: No problem reported Eyes: No problem reported ENT: No problem reported Respiratory: No problem reported Cardiovascular: No problem reported Abdomen: No problem reported Musculoskeletal: No problem reported Genitourinary - Male: No problem reported Neurologic: No problem reported Psychiatric: No problem reported Endocrine: No problem reported Hematologic / Lymphatic: No problem reported Integumentary: No problem reported Hospital Course Mr. Frank is a 72 year old man here with chest pain and acute on chronic diastolic CHF Acute/chronic diastolic CHF -has diuresed a great deal and feels improved. Now net negative 5.6 l, and -5 kg body weight -Received IV bumex 2 mg tid along with potassium replacement and then switched back to recently increased home dose of Bumex 2 mg p.o. twice daily for discharge - appreciate cardiology consultation -strict I/Os, low Na+ diet -fluid restrict to 1800 mL -daily weights -continue Aldactone at home dosing, change metolazone to 2.5 mg on Monday as per cardiology recommendations upon discharge HTN - controlled -cont home meds. RAMAN - stable -He used his BiPAP from home during hospitalization CAIT in setting of CKD stage III- baseline superintendent storage area around 1.5,was 1.8 on admission and on the day of discharge crept up to 1.9 after IV diuresis. Other electrolytes are acceptable Renal ultrasound without significant abnormality -avoid nephrotoxins -renally dose meds -follow BMP especially with diuresis-check BMP in 2 days as an outpatient -Consider referral to nephrology as an outpatient CP-likely was secondary to CHF. trop neg x 3 He had no significant events on telemetry monitoring - cont ASA, statin, B jessica - we will avoid any additional NTG as he has a history of R heart failure and had a significant BP drop with SL NTG in the ER, morphine for chest pain - cardiology consult appreciated Hypokalemia-resolved with replacement -continue home dose of potassium chloride 20 mEq p.o. 3 times daily DM II, not on accountant certified public insulin, controlled, last A1C 7.1% in 10/2017 and now down to 6.5% here - continue bsgs ac & hs, SS -Discontinue metformin indefinitely given elevated creatinine -We will defer to PCP to see if should be started on a new medication for his diabetes in the future, but none needed at this time HL-continue statin Stable for discharged home today Total Time Spent: Greater than 30 minutes This includes examination of the patient, discharge planning, medication reconciliation, and communication with other providers. Discharge Instructions Please refer to the electronic Patient Visit Report (Discharge Instructions) for additional information. Follow-Up With PCP within 1 week With cardiology in 2-3 weeks Suggest nephrology referral if PCP desires Check BMP in 2 days Additional Copies To Pepe Peterson M.D.; Jose L Griffin M.D.
[2018-04-22 17:08] VITALS: BP 134/87; PULSE 86; TEMP 36.6; O2SAT 94
== END 2018-04-22 18:44 | disposition home or self-care (01) | DRG 291 ==
LOC: C.EDB 19:31 → C.2T 23:11 → ENRESERV 23:32 → OBSVTOIN 04-19 13:46
PROVIDERS: ADMIT Internal Medicine; ATTEND Family Medicine
DX: I13.0 Hypertensive heart and chronic kidney disease with heart failure and stage 1 through stage 4 chronic kidney disease, or unspecified chronic kidney disease (principal); I50.33 Acute on chronic diastolic (congestive) heart failure; E66.2 Morbid (severe) obesity with alveolar hypoventilation; N17.9 Acute kidney failure, unspecified; Z68.41 Body mass index [BMI] 40.0-44.9, adult; E78.5 Hyperlipidemia, unspecified; G47.33 Obstructive sleep apnea (adult) (pediatric); Z82.49 Family history of ischemic heart disease and other diseases of the circulatory system; Z79.82 Long term (current) use of aspirin; J45.909 Unspecified asthma, uncomplicated; N18.3 Chronic kidney disease, stage 3 (moderate); I95.2 Hypotension due to drugs; T46.3X5A Adverse effect of coronary vasodilators, initial encounter; E11.22 Type 2 diabetes mellitus with diabetic chronic kidney disease; E87.6 Hypokalemia

== ENCOUNTER → 2018-05-08 | Outpatient (CLI) | payer BC ==
[~2018-05-08] MED LIST changes: +ACET-1047 PO; -GLC500 PO; -GUAISYP8 PO; +METO50TA8 PO; +METO5TAB25 PO
[2018-05-08 14:13] LABS: BLOOD UREA NITROGEN 32 mg/dl (7-18); CALCIUM 9.5 mg/dl (8.5-10.1); CARBON DIOXIDE 33 mmol/L (21-32); CREATININE 1.65 mg/dl (0.60-1.40); GLUCOSE 124 mg/dl (70-99); POTASSIUM 3.3 mmol/L (3.5-5.1); SODIUM 137 mmol/L (136-145)
== END | disposition home or self-care (01) ==
LOC: C.LABSPEC 12:59
PROVIDERS: ATTEND Internal Medicine
DX: I50.33 Acute on chronic diastolic (congestive) heart failure (principal)

== ENCOUNTER 2018-05-13 13:53 | Inpatient (IN) | payer BC, OTHER ==
[~2018-05-13] VITALS: Ht 182.9 cm; Wt 131.3 kg
[~2018-05-13 13:53] MED LIST changes: -ACET-1047 PO; -METO50TA8 PO; -METO5TAB25 PO
--- NOTE | 2018-05-13 14:33 | DIAGNOSTIC IMAGING REPORT ---
CHEST ONE VIEW PORTABLE CLINICAL HISTORY: CHEST PAIN dyspnea COMPARISON STUDY: 04/18/2018 FINDINGS: The bones soft tissues and hemidiaphragms are normal. The cardiomediastinal silhouette is normal. The lungs are clear. The pulmonary vasculature is normal. Mild stable cardiomegaly. IMPRESSION: Mild stable cardiomegaly. Otherwise negative study. The above report was generated using voice recognition software. It may contain grammatical, syntax or spelling errors. Electronically signed by: Russell Tsai M.D. 05/13/2018 2:32 PM Dictated Date/Time: 05/13/2018 2:32 PM
[2018-05-13 14:41] LABS: BASO % 0.3 %; BASO ABS # 0.03 K/uL (0-0.2); EOS % 2.1 %; EOS ABS # 0.22 K/uL (0-0.5); HEMATOCRIT 43.6 % (42-52); HEMOGLOBIN 14.7 g/dL (14.0-18.0); IG# 0.03 K/uL (0.00-0.02); LYMPH % 32.5 %; LYMPH ABS # 3.39 K/uL (1.2-3.4); MEAN CELL VOLUME 90.8 fL (80-100); MEAN CORPUSCULAR HEMOGLOBIN 30.6 pg (25-34); MEAN CORPUSCULAR HGB CONC 33.7 g/dl (32-36); MEAN PLATELET VOLUME 10.8 fL (7.4-10.4); MONO ABS # 1.04 K/uL (0.11-0.59); NEUT % 54.8 %; NEUT ABS # 5.71 K/uL (1.4-6.5); PLATELET COUNT 243 K/uL (130-400); RED CELL DISTRIBUTION WIDTH CV 13.4 % (11.5-14.5); RED CELL DISTRIBUTION WIDTH SD 44.3 fL (36.4-46.3); WHITE BLOOD COUNT 10.42 K/uL (4.8-10.8)
[2018-05-13] MEDS ORDERED: METO50TA8 PO (14:50)
[2018-05-13] MEDS ORDERED: METO5TAB25 PO (14:50)
--- NOTE | 2018-05-13 14:59 | Cardiology Consultation ---
Cardiology Consultation Date of Consultation: May 13, 2018 History of Present Illness Jose Elias Frank is a 73 year old male seen in cardiology consultation in the emergency department , room B4-b, for the evaluation of chest tightness, episodic heavy perspiration and abdominal fullness per the request of the patient and Dr Graham. The patient's primary care provider is Dr. Pepe Castro. The patient's primary apparel manager is Dr. Jose L Griffin of our practice. The patient had been admitted earlier this month in April, for volume overload felt to be due to diastolic heart failure with right heart failure at that time. Per review of his chart, when he was admitted on 04/18/18 his admission diuretic regimen included Bumex 2 mg by mouth 2 times per day and metolazone 2.5 mg every 48 hours. He was placed on IV diuretics including Bumex 2 mg IV every 8 hours with significant urine output noted per review of his chart. He was discharged on Bumex 2 mg by mouth 2 times per day and metolazone 2.5 mg 3 times per week. The patient was reassessed by Dr. Griffin as an outpatient last week on 05/09/18 with complaints of gradual increase in weight, gaining approximately 10-12 pounds since his recent discharge earlier this month with increasing abdominal girth, bloating, breathlessness, orthopnea. He has had difficulty using his CPAP recently due to the above complaints. Medication changes were made including Bumex 3 mg twice a day to be administered at morning and noon. Metolazone dose was increased to 5 mg daily for 3 days and then he was going to reduce metolazone to 2.5 mg daily. Spironolactone was increased to 50 mg twice daily. The patient return for a repeat echocardiogram in our office on 05/13/18. Moderate concentric left ventricular hypertrophy is noted with normal left ventricular ejection fraction in the range of 65-69%. Her left atrial dilatation was noted. Grade 1 diastolic dysfunction was noted. Mild aortic valve sclerosis without stenosis is present. The right ventricular chamber size and systolic function were normal qualitatively. There is no echocardiographic evidence of pulmonary hypertension. No pericardial effusion was present. History Past Medical History: 1. Long-standing hypertensive heart disease with chronic diastolic heart failure right heart failure greater than left heart failure for nearly 20 years with prior remote diagnosis of restrictive cardiomyopathy 2. History of obstructive sleep apnea with chronic obesity and obesity hypoventilation syndrome 3. Remote cardiac catheterization 2005 without obstructive coronary heart disease 4. Stage III chronic kidney disease 5. Arthritis for which the patient utilizes Celebrex on a routine basis and occasional ibuprofen Past Surgical History: 1. Notable for left knee replacement 2. Cholecystectomy 3. Remote inguinal hernia repair Social History: Patient is 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 [employer]. 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 He is accompanied at the bedside by his spouse and son Prior [id number] tobacco use history having discontinued smoking in 1974 Denies chronic alcohol use Family History: Father due to an accident, no known heart disease Mother had a history of cerebrovascular disease, strokes Review Of Systems 10 point review systems is reviewed and is negative with the exception of that above Allergies Coded Allergies: Iodinated Diagnostic Agents (Verified Adverse Reaction, Mild, GI UPSET, ) Medications Reported Home Medications Medications Dose Route/Sig Max Daily Dose Days Date Category Dose Instructions Zaroxolyn (Metolazone) 2.5 Mg Tab 2.5 Mg PO 3XWK 30 04/22/18 Rx on Monday Celecoxib 200 Mg Cap 200 Mg PO DAILY 10/24/17 Reported Symbicort 160/4.5 Inhaler (Budesonide/Formoterol Fumarate) 120 Puffs/ Aero 2 Puff INH BID PRN 10/24/17 Reported Aspirin Ec (Aspirin) 81 Mg Tab 81 Mg PO DAILY 10/24/17 Reported Iron Supplement (Ferrous Gluconate) 324 Mg Tab 324 Mg PO BID 08/23/17 Reported Lipitor (Atorvastatin Calcium) 20 Mg Tab 20 Mg PO DAILY 08/23/17 Reported Fluoxetine HCl 20 Mg Cap 20 Mg PO BID 08/23/17 Reported Bumetanide 1 Mg Tab 2 Mg PO BID 08/23/17 Reported Coreg (Carvedilol) 12.5 Mg Tab 12.5 Mg PO BID 01/07/16 Reported Klor-Con (Potassium Chloride) 20 Meq Tabcr 20 Meq PO TID 12/30/13 Reported Aldactone (Spironolactone) 25 Mg Tab 25 Mg PO BID/AM 08/25/11 Reported Prilosec (Omeprazole) 20 Mg Capcr 20 Mg PO QAM 06/30/09 Reported Physical Exam Vital Signs (Last 8hrs): Last 8 Hrs Date Time Temp Pulse Resp B/P (MAP) Pulse Ox O2 Delivery O2 Flow Rate FiO2 05/13/18 14:25 80 05/13/18 14:23 95 Room Air 05/13/18 14:23 95 Room Air 05/13/18 13:59 36.6 78 22 126/76 94 Room Air General Appearance: Alert and Oriented x3. Uncomfortable, but no sina distress Head: Normocephalic Atraumatic. Eyes: PERRLA, EOMI, conjunctiva and sclera clear Neck: Supple. No carotid bruits noted. Elevated jugular venous pressure JVD. Respiratory: Breath sounds clear to auscultation bilaterally. No w/r/r. Cardiovascular: Reg rate and rhythm. S1 and S2 noted. No murmurs, rubs, gallops. PMI non displace. Abdomen: Abdominal fullness noted, palpation suggestive of fluid retention Extremities: No edema, no clubbing or cyanosis. distal pulses 2/4 bilaterally. Neuro: No focal deficits. Psychiatric: Normal affect. Data Laboratory studies pending EKG performed on arrival to the emergency room revealed a sinus rhythm with right bundle branch block and no acute ST changes, unchanged compared to a prior tracing from earlier this month. The right bundle branch block is chronic Echocardiogram as summarized in the HPI, recently performed 2 days ago on Assessment & Plan Impression: 73-year-old male 1. Progressive exertional chest tightness, abdominal distention -Initial presentation concerning for acute on chronic diastolic heart failure 2. History of obstructive sleep apnea, obesity hypoventilation syndrome 3. Chronic kidney disease, stage III, recent creatinine levels of 1.65-1.87 on 04/24/18 and 04/25/18. Recommendations: Recommend admission for further observation and treatment. The patient's blood pressure is stable thus far in the emergency department with hypertension or significant hypotension. On my exam, it appears he is retaining fluid in his abdomen, and this appears to correlate well with the examination documented by Dr. Griffin on his 05/09/18 note. 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 At this time stat EKG is negative for acute ST segment changes. His laboratory studies including troponin are pending. If his renal function is relatively stable, I would recommend proceeding with a trial of a low-dose furosemide infusion as his symptoms have been refractory to escalating his Bumex dose and the addition of metolazone as an outpatient. Would consider starting the furosemide infusion without a loading bolus starting at a very conservative low dose of 5 mg/h and increased to 10 mg/h after several hours if tolerating. Considerations include starting Flomax if blood pressure allows given Proscar to allow for her diuretic therapy to limit urinary outflow tract obstruction. If unable to void sufficiently or if using the urinal causes too much exertion for him, may need to consider insertion of a Loera catheter. Addendum: 05/13/18, 1506: Chemistry panel results are now available. Troponin is negative 1 is less than 0.015. His proBNP level is low also. The patient's creatinine has trended up having been 1.87 at time of discharge on 04/25/18, 1.65 on 05/08/18, and 2.27 today after most recent escalation of diuretic therapy. At present, given the acute escalation of his creatinine, we will hold off on furosemide infusion for now. I recommended placement of a Loera catheter, and administration of Bumex 2 mg IV 1. With hold off on further doses of loop diuretic, metolazone, and spironolactone for now, and reassess the patient by clinical assessment as well as repeat chemistry panel tomorrow.
[2018-05-13 15:04] LABS: ALBUMIN 3.6 gm/dl (3.4-5.0); ALKALINE PHOSPHATASE 92 U/L (45-117); ALT/SGPT 36 U/L (12-78); AST/SGOT 23 U/L (15-37); BLOOD UREA NITROGEN 34 mg/dl (7-18); CALCIUM 9.2 mg/dl (8.5-10.1); CARBON DIOXIDE 32 mmol/L (21-32); CREATININE 2.27 mg/dl (0.60-1.40); GLUCOSE 157 mg/dl (70-99); LIPASE 387 U/L (73-393); POTASSIUM 3.5 mmol/L (3.5-5.1); SODIUM 137 mmol/L (136-145); TOTAL PROTEIN 7.6 gm/dl (6.4-8.2)
--- NOTE | 2018-05-13 15:25 | Cardiology Progress Note ---
Cardiology Progress Note Date of Service May 13, 2018. Cardiology Progress Note Patient reassessed in emergency department. I observed that he was very dyspneic walking the short distance from his bathroom back to his bed in the emergency department. This is significantly worse than what I observed when he ambulated down the hallway and our office to have his echocardiogram performed 2 days ago. The patient's most recent dose of oral Bumex was at 1 PM and it is now 3:24 PM. At this time, the patient was agreeable to Loera catheter placement. I am going to have a Loera catheter placed and await results to see if there is any significant urine output prior to initiating dose of diuretic IV today. The patient is to be admitted to the telemetry unit. I plan telephone follow- up with his telemetry nurse and will reassess timing and dose of diuretic based on his progress. I had also recommended to his nurse in the emergency room that his lower extremity venous duplex should be changed to a portable study set the patient is not far away from either the emergency room or the telemetry unit because I think he needs to be watched closely would not recommend him going to radiology and supervised.
--- NOTE | 2018-05-13 15:51 | EMERGENCY ROOM VISIT NOTE ---
History Report prepared by Leonides: Bernice Santos Under the Supervision of: Dr. Gian Graham M.D. First contact with patient: 14:02 Chief Complaint: CHEST PAIN Stated Complaint: CHEST PAIN DR REFERRED History of Present Illness The patient is a 73 year old male who presents to the Emergency Room with complaints of persistent chest pain starting 3 weeks ago. The patient was seen in the ED earlier this month for chest pain. He had an echo 2 days ago which found that the right side of his heart is not functioning well. He was started on metoprolol. He describes the chest pain as a pressure and tightness. He does not identify anything that makes his pain better or worse. The chest pain does not change with deep breaths. He has been feeling more SOB. He has taken more of his fluid pills today. He is on Bumex and spironolactone. He had 2-3 episodes of diaphoresis today which he has not experienced before. He spoke with cardiology today who recommended he come to the ED. He has not noticed any change in leg swelling or abdominal swelling. He has had some coughing, but no hemoptysis or fever. He is on BiPAP at night. He does not wear oxygen at home. Source of History: patient Onset: 3 weeks ago Position: chest Quality: pressure, other (tightness) Timing: other (persistent) Associated Symptoms: + cough, + SOB, No fevers Review of Systems See HPI for pertinent positives and negatives. A total of ten systems were reviewed and were otherwise negative. Past Medical & Surgical Medical Problems: (1) Acute and chronic respiratory failure with hypoxia (2) ACUTE BRONCHITIS (3) Acute exacerbation of CHF (congestive heart failure) (4) Acute on chronic diastolic (congestive) heart failure (5) GERD (gastroesophageal reflux disease) (6) Localized, primary osteoarthritis of the lower leg (7) Obesity hypoventilation syndrome (8) Obstructive lung disease (9) Pneumonia (10) Restrictive cardiomyopathy (11) Sleep apnea (12) Sleep apnea (13) Type 2 diabetes mellitus Surgical Problems: (1) Post-operative state Family History FH: cancer FH: gallbladder disease FH: heart disease Hypertension Social History Smoking Status: Former Smoker Alcohol Use: none Drug Use: none Marital Status: Housing Status: lives with family Occupation Status: retired Current/Historical Medications Scheduled Aspirin (Aspirin Ec), 81 MG PO DAILY Atorvastatin (Lipitor), 20 MG PO DAILY Bumetanide (Bumetanide), 3 MG PO BID Ferrous Gluconate (Iron Supplement), 324 MG PO BID Fluoxetine HCl (Fluoxetine HCl), 20 MG PO BID Metolazone (Zaroxolyn), 5 MG PO DAILY Metoprolol Succ (Toprol Xl) (Toprol-Xl), 50 MG PO BID Omeprazole (Prilosec), 20 MG PO QAM Potassium Ext Rel (Klor-Con), 20 MEQ PO TID Spironolactone (Aldactone), 50 MG PO BID Allergies Coded Allergies: Iodinated Diagnostic Agents (Verified Adverse Reaction, Mild, GI UPSET, ) Physical Exam Vital Signs Date Time Temp Pulse Resp B/P (MAP) Pulse Ox O2 Delivery O2 Flow Rate FiO2 05/13/18 16:37 73 20 100/64 96 Nasal Cannula 2.0 05/13/18 16:30 96 Nasal Cannula 2.0 05/13/18 16:11 66 20 107/62 96 Nasal Cannula 2.0 05/13/18 15:08 75 20 96/67 97 Nasal Cannula 2.0 05/13/18 14:37 97 Nasal Cannula 2.0 05/13/18 14:34 73 16 102/72 96 Nasal Cannula 2.0 05/13/18 14:25 80 05/13/18 14:23 95 Room Air 05/13/18 14:23 95 Room Air 05/13/18 13:59 36.6 78 22 126/76 94 Room Air Physical Exam GENERAL: Awake, alert, well-appearing, in no distress HENT: Normocephalic, atraumatic. Oropharynx unremarkable. EYES: Normal conjunctiva. Sclera non-icteric. NECK: Supple. No nuchal rigidity. RESPIRATORY: Clear to auscultation but diminished bases. No wheezes. No retractions CARDIAC: Normal rate. Normal rhythm. Extremities warm and well perfused. GI: Obese, but not tense. Soft. No tenderness to palpation. No rebound or guarding. No masses. RECTAL: Deferred. MUSCULOSKELETAL: Atraumatic. Chest examination reveals mild midsternal chest tenderness. There is no CVA tenderness to palpation. LOWER EXTREMITIES: Calves are equal size bilaterally and non-tender. No edema NEURO: Normal sensorium. No sensory or motor deficits noted. SKIN: Warm and dry. No rash or jaundice noted. Medical Decision & Procedures ER Provider Diagnostic Interpretation: Radiology results as stated below per my review and radiologist interpretation: CHEST ONE VIEW PORTABLE CLINICAL HISTORY: CHEST PAIN dyspnea COMPARISON STUDY: 04/18/2018 FINDINGS: The bones soft tissues and hemidiaphragms are normal. The cardiomediastinal silhouette is normal. The lungs are clear. The pulmonary vasculature is normal. Mild stable cardiomegaly. IMPRESSION: Mild stable cardiomegaly. Otherwise negative study. The above report was generated using voice recognition software. It may contain grammatical, syntax or spelling errors. Electronically signed by: Russell Tsai M.D. 05/13/2018 2:32 PM Dictated Date/Time: 05/13/2018 2:32 PM Laboratory Results 05/13/18 14:23 Red Blood Count 4.80, Mean Corpuscular Volume 90.8, Mean Corpuscular Hemoglobin 30.6, Mean Corpuscular Hemoglobin Concent 33.7, Mean Platelet Volume 10.8, Neutrophils (%) (Auto) 54.8, Lymphocytes (%) (Auto) 32.5, Monocytes (%) (Auto) 10.0, Eosinophils (%) (Auto) 2.1, Basophils (%) (Auto) 0.3, Neutrophils # (Auto ) 5.71, Lymphocytes # (Auto) 3.39, Monocytes # (Auto) 1.04, Eosinophils # (Auto ) 0.22, Basophils # (Auto) 0.03 05/13/18 14:23 Test 05/13/18 14:23 White Blood Count 10.42 K/uL (4.8-10.8) Red Blood Count 4.80 M/uL (4.7-6.1) Hemoglobin 14.7 g/dL (14.0-18.0) Hematocrit 43.6 % (42-52) Mean Corpuscular Volume 90.8 fL (80-100) Mean Corpuscular Hemoglobin 30.6 pg (25-34) Mean Corpuscular Hemoglobin Concent 33.7 g/dl (32-36) Platelet Count 243 K/uL (130-400) Mean Platelet Volume 10.8 fL (7.4-10.4) Neutrophils (%) (Auto) 54.8 % Lymphocytes (%) (Auto) 32.5 % Monocytes (%) (Auto) 10.0 % Eosinophils (%) (Auto) 2.1 % Basophils (%) (Auto) 0.3 % Neutrophils # (Auto) 5.71 K/uL (1.4-6.5) Lymphocytes # (Auto) 3.39 K/uL (1.2-3.4) Monocytes # (Auto) 1.04 K/uL (0.11-0.59) Eosinophils # (Auto) 0.22 K/uL (0-0.5) Basophils # (Auto) 0.03 K/uL (0-0.2) RDW Standard Deviation 44.3 fL (36.4-46.3) RDW Coefficient of Variation 13.4 % (11.5-14.5) Immature Granulocyte % (Auto) 0.3 % Immature Granulocyte # (Auto) 0.03 K/uL (0.00-0.02) Anion Gap 9.0 mmol/L (3-11) Est Creatinine Clear Calc Drug Dose 42.5 ml/min Estimated GFR () 32.4 Estimated GFR (Non- 28.0 BUN/Creatinine Ratio 15.0 (10-20) Calcium Level 9.2 mg/dl (8.5-10.1) Total Bilirubin 0.3 mg/dl (0.2-1) Direct Bilirubin < 0.1 mg/dl (0-0.2) Aspartate Amino Transf (AST/SGOT) 23 U/L (15-37) Alanine Aminotransferase (ALT/SGPT) 36 U/L (12-78) Alkaline Phosphatase 92 U/L (45-117) Troponin I < 0.015 ng/ml (0-0.045) Pro-B-Type Natriuretic Peptide 156 pg/ml (0-900) Total Protein 7.6 gm/dl (6.4-8.2) Albumin 3.6 gm/dl (3.4-5.0) Lipase 387 U/L (73-393) Laboratory results reviewed by me ECG Per My Interpretation Indication: chest pain Rate (beats per minute): 77 Rhythm: normal sinus Findings: RBBB, T-wave inversion (V1), no ectopy, other (no ST segment elevation) Comparison ECG Date: 18-Apr-2018 Change: no significant change ED Course 1405: The patient was evaluated in room B4B. A complete history and physical exam was performed. 1412: I spoke with Ellen Fabian cardiology. He will see the patient. 1422: Dr. Locke has evaluated the patient. He recommends the patient be evaluated by the hospitalist service for further management. 1528: I discussed the patient's case with Dr. Witt [facility] hospitalist. The patient will be evaluated for further treatment and disposition. 1529: Upon reexamination, the patient was resting comfortably. I discussed the test results and treatment plan with him. The patient will be evaluated for further management. Medical Decision Etiologies such as cardiac ischemia, aortic dissection, pulmonary embolism, pneumonia, pneumothorax, musculoskeletal, infections, gastrointestinal, as well as others were entertained. Patient with a history of diastolic heart failure recent admission in the beginning of the month for the patient requiring inpatient diuresis. Chest pain at that point as well. Remote history of cardiac catheterization without stent placement 2005. Presented today complaining of chest pain and worsening shortness of breath. States compliance with home medications including diuretics. Denies significant weight gain but states little bit of sweats today and more shortness of breath. Chest pain ongoing in the center of his chest for about 3 weeks. Follow close with cardiology and seen on Monday and had echocardiogram there. Started on metoprolol at that point. He discussed with cardiology prior to coming in today. Cardiology also evaluate the patient at bedside in ED. EKG without acute change. Labs and chest x-ray completed. Doubt this is a dissection. Symptoms seem less likely to me to be PE; ultrasound was ordered to evaluate for possible DVT but deferred given his significant shortness of breath to portable exam pending. No acute evidence of pneumonia. Did have a recent echocardiogram likely exacerbating some anterior chest wall tenderness shortness of breath seems likely component of his heart failure. Given the multiple attempts during the prior week for outpatient management cardiology recommended admission. Troponin not acutely elevated. Chest x-ray without evidence of significant volume overload. Some evidence of acute kidney injury with elevated creatinine likely due to the increased diuretics over the past week. Cardiology recommends inpatient diuresis. Hospitalist contacted for admission. Medication Reconcilliation Current Medication List: was personally reviewed by me Blood Pressure Screening Patient's blood pressure: Normal blood pressure Consults Consulting Physician: Ellen Fabian cardiology Returned Call: 1412 I spoke with him. He will see the patient. Additional Consults: Time Called: 1520 Consulted Physician: Dr. Witt [facility] hospitalist Returned Call: 1528 Additional Comments: Discussed the patient's case. The patient will be evaluated for further treatment and disposition. Impression Primary Impression: Acute exacerbation of congestive heart failure Additional Impressions: CAIT (acute kidney injury) SOB (shortness of breath) Scribe Attestation The scribe's documentation has been prepared under my direction and personally reviewed by me in its entirety. I confirm that the note above accurately reflects all work, treatment, procedures, and medical decision making performed by me. Departure Information Dispostion Being Evaluated By Hospitalist Referrals Pepe Peterson M.D. (PCP) Patient Instructions My [facility] Problem Qualifiers Primary Impression: Acute exacerbation of congestive heart failure Heart failure type: diastolic Qualified Codes: I50.33 - Acute on chronic diastolic (congestive) heart failure
[2018-05-13 16:30] VITALS: O2SAT 96; Ht 182.9 cm; Wt 131.3 kg
[2018-05-13] MEDS ORDERED: MAGNESIUM HYDROXIDE SUSP 30 ML UDC PO PRN (17:15)
[2018-05-13] MEDS ORDERED: ONDANSETRON INJ 2 MG/ML 2 ML VIAL IV PRN (17:15)
--- NOTE | 2018-05-13 17:21 | History and Physical ---
History & Physical Date & Time of Service: May 13, 2018 at 17:11 Chief Complaint: Chest Pain Dr Referred Primary Care Physician: Pepe Peterson M.D. History of Present Illness Source: patient 73 y/o M c/o SOB. Pt states that he has been SOB for months now and it is not improving. He feels it is worse at times. It is worse with ambulation. He has occasional chest pain that come and go, but not today. He has been tolerating PO without issue. Pt denies fever, abd pain, n/v/c/d, LE pain. He does feel that his abd is swelling. He also generally has LE swelling b/l, but not at present. Pt was seen by Dr. Griffin last week. An ECHO was done in the office. Pt was called on Monday and states that Dr. Griffin told him that there was some sort of issue with the R side of his heart. He was instructed to increase his doses of bumex, spironolactone, and and metalozone. He was started on metoprolol. He did all of these things at that time but has had no improvement. He was to f/u in the office tomorrow, however he continued to feel poorly so he came to the ED. Pt's main concern at present is burning in his penis since the brewster was placed. He does still feel SOB when he gets up. Past Medical/Surgical History CHF Pre-DM Hyperlipidemia OA GERD Restrictive cardiomyopathy CKD III RAMAN on BIPAP Family History Family history was reviewed; no changes noted. Mother: multiple CVA Denies NM hx Social History Smoking Status: Former Smoker (from [id number]) Alcohol Use: quit in 1987 Drug Use: none Marital Status: Housing status: lives with family Occupational Status: retired Immunizations History of Influenza Vaccine: Yes History of Tetanus Vaccine?: Unknown History of Pneumococcal: Yes History of Hepatitis B Vaccine: No Allergies Coded Allergies: Iodinated Diagnostic Agents (Verified Adverse Reaction, Mild, GI UPSET, ) Home Medications Scheduled Aspirin (Aspirin Ec), 81 MG PO DAILY Atorvastatin (Lipitor), 20 MG PO DAILY Bumetanide (Bumetanide), 3 MG PO BID Ferrous Gluconate (Iron Supplement), 324 MG PO BID Fluoxetine HCl (Fluoxetine HCl), 20 MG PO BID Metolazone (Zaroxolyn), 5 MG PO DAILY Metoprolol Succ (Toprol Xl) (Toprol-Xl), 50 MG PO BID Omeprazole (Prilosec), 20 MG PO QAM Potassium Ext Rel (Klor-Con), 20 MEQ PO TID Spironolactone (Aldactone), 50 MG PO BID Review of Systems Pertinent positives and negatives reviewed in HPI--all others negative Physical Exam Vital Signs Date Time Temp Pulse Resp B/P (MAP) Pulse Ox O2 Delivery O2 Flow Rate FiO2 05/13/18 16:37 73 20 100/64 96 Nasal Cannula 2.0 05/13/18 16:30 96 Nasal Cannula 2.0 05/13/18 16:11 66 20 107/62 96 Nasal Cannula 2.0 05/13/18 15:08 75 20 96/67 97 Nasal Cannula 2.0 05/13/18 14:37 97 Nasal Cannula 2.0 05/13/18 14:34 73 16 102/72 96 Nasal Cannula 2.0 05/13/18 14:25 80 05/13/18 14:23 95 Room Air 05/13/18 14:23 95 Room Air 05/13/18 13:59 36.6 78 22 126/76 94 Room Air General Appearance: no apparent distress, + obese Head: normocephalic, atraumatic Eyes: normal inspection, sclerae normal Respiratory/Chest: normal breath sounds, no respiratory distress Cardiovascular: regular rate, rhythm, normal peripheral pulses Abdomen/GI: non tender, soft, + distended Extremities/Musculoskelatal: no calf tenderness, no pedal edema Neurologic/Psych: alert, normal mood/affect, oriented x 3 Skin: normal color, warm/dry Diagnostics Laboratory Results Results Past 24 Hours Test 05/13/18 14:23 Range/Units White Blood Count 10.42 4.8-10.8 K/uL Red Blood Count 4.80 4.7-6.1 M/uL Hemoglobin 14.7 14.0-18.0 g/dL Hematocrit 43.6 42-52 % Mean Corpuscular Volume 90.8 80-100 fL Mean Corpuscular Hemoglobin 30.6 25-34 pg Mean Corpuscular Hemoglobin Concent 33.7 32-36 g/dl Platelet Count 243 130-400 K/uL Mean Platelet Volume 10.8 7.4-10.4 fL Neutrophils (%) (Auto) 54.8 % Lymphocytes (%) (Auto) 32.5 % Monocytes (%) (Auto) 10.0 % Eosinophils (%) (Auto) 2.1 % Basophils (%) (Auto) 0.3 % Neutrophils # (Auto) 5.71 1.4-6.5 K/uL Lymphocytes # (Auto) 3.39 1.2-3.4 K/uL Monocytes # (Auto) 1.04 0.11-0.59 K/uL Eosinophils # (Auto) 0.22 0-0.5 K/uL Basophils # (Auto) 0.03 0-0.2 K/uL RDW Standard Deviation 44.3 36.4-46.3 fL RDW Coefficient of Variation 13.4 11.5-14.5 % Immature Granulocyte % (Auto) 0.3 % Immature Granulocyte # (Auto) 0.03 0.00-0.02 K/uL Sodium Level 137 136-145 mmol/L Potassium Level 3.5 3.5-5.1 mmol/L Chloride Level 97 98-107 mmol/L Carbon Dioxide Level 32 21-32 mmol/L Anion Gap 9.0 3-11 mmol/L Blood Urea Nitrogen 34 7-18 mg/dl Creatinine 2.27 0.60-1.40 mg/dl Est Creatinine Clear Calc Drug Dose 42.5 ml/min Estimated GFR () 32.4 Estimated GFR (Non- 28.0 BUN/Creatinine Ratio 15.0 10-20 Random Glucose 157 70-99 mg/dl Calcium Level 9.2 8.5-10.1 mg/dl Total Bilirubin 0.3 0.2-1 mg/dl Direct Bilirubin < 0.1 0-0.2 mg/dl Aspartate Amino Transf (AST/SGOT) 23 15-37 U/L Alanine Aminotransferase (ALT/SGPT) 36 12-78 U/L Alkaline Phosphatase 92 45-117 U/L Troponin I < 0.015 0-0.045 ng/ml Pro-B-Type Natriuretic Peptide 156 0-900 pg/ml Total Protein 7.6 6.4-8.2 gm/dl Albumin 3.6 3.4-5.0 gm/dl Lipase 387 73-393 U/L Diagnostic Radiology CXR neg for acute Impression Assessment and Plan 73 y/o M who was admitted on 05/13 for SOB. SOB: concern from cardiology regarding recent ECHO and likely CHF exacerbation Known restrictive cardiomyopathy CXR neg BNP WNL Trop neg, serials pending O2 sats WNL, HR and BP WNL all making PE less likely t/c CTA if no improvement Cardiology evaluated pt in ED and recs for bumex x1 and monitor without further diuretics until tomorrow after further assessment ECHO done last week as outpt, will not repeat ARF: in the setting of CKD III cr was 1.65 on 05/08, monitor Likely elevated due to increased diuretics Pre-DM: A1c 6.5 on 04/21, will not repeat Hyperlipidemia: lipid panel pending RAMAN: BIPAP as at home Other: Full code AHA diet Heparin for DVT proph Advanced Directives Existing Living Will: No Existing Power of Digital Marketing Intern: No Resuscitation Status VTE Prophylaxis Will order VTE Prophylaxis: Yes
[2018-05-13] MEDS: ACETAMINOPHEN 325 MG TAB PO PRN (18:24)
[2018-05-13 18:34] VITALS: BP 146/85; PULSE 74; TEMP 37.2; O2SAT 96
--- NOTE | 2018-05-13 18:58 | Cardiology Progress Note ---
Cardiology Progress Note Date of Service May 13, 2018. Cardiology Progress Note I spoke to pt's nurse by phone. Pt arrived to telemetry about [address] in [address] 400 ml of urine output thus far. BP stable. Proceed with bumex 1 mg IV x 1 for now. Standing scale weights, now and daily. Orders entered.
[2018-05-13] MEDS ORDERED: LIDOCAINE HCL 2% JELLY 30 ML TUBE ONE (19:55)
[2018-05-13] MEDS ORDERED: NURSING VERBAL MED ORDER ONE (20:15)
[2018-05-13] MEDS ORDERED: BUMETANIDE IV 1 MG in SYRINGE 0 ML IV SCH (20:45)
[2018-05-13] MEDS ORDERED: LIDOCAINE HCL 2% JELLY 30 ML TUBE EXT PRN (21:00)
[2018-05-13] MEDS: FLUOXETINE HCL 20 MG CAP PO SCH (21:26)
[2018-05-13] MEDS: FERROUS GLUCONATE 324 MG TAB PO SCH (21:26)
[2018-05-13] MEDS: POTASSIUM CHLORIDE 20 MEQ TABCR PO SCH (21:27)
[2018-05-13] MEDS: METOPROLOL SUCC 50MG EXT REL TAB PO SCH (21:29)
[2018-05-13] MEDS: HEPARIN SOD 5000 UNIT/0.5 ML CARP SQ SCH (21:42)
--- NOTE | 2018-05-13 22:21 | DIAGNOSTIC IMAGING REPORT ---
VENOUS DOPPLER LWR EXT BILA HISTORY: Pain. Edema. SOB, weakness, eval dvt COMPARISON STUDY: None. FINDINGS: There is normal compressibility, flow, and augmentation within the bilateral lower extremity deep venous systems. IMPRESSION: No DVT within the right or left lower extremity. The above report was generated using voice recognition software. It may contain grammatical, syntax or spelling errors. Electronically signed by: Russell Tsai M.D. 05/13/2018 10:19 PM Dictated Date/Time: 05/13/2018 10:19 PM
[2018-05-13 22:27] VITALS: BP 130/84; PULSE 76; TEMP 36.9; O2SAT 93
[2018-05-13 23:12] VITALS: PULSE 67; O2SAT 92
[2018-05-14 04:54] VITALS: BP 125/85; PULSE 62; TEMP 36.5; O2SAT 97
[2018-05-14 05:42] LABS: CHOLESTEROL 152 mg/dl (0-200); LDL CHOLESTEROL CALCULATED 72 mg/dl
[2018-05-14] MEDS: HEPARIN SOD 5000 UNIT/0.5 ML CARP SQ SCH ×3 (06:16→20:57)
[2018-05-14 07:34] VITALS: BP 145/82; PULSE 78; TEMP 36.6; O2SAT 94
[2018-05-14] MEDS: ACETAMINOPHEN 325 MG TAB PO PRN (07:44)
[2018-05-14] MEDS: PANTOprazole SOD 40 MG TAB PO SCH (07:45)
[2018-05-14] MEDS: POTASSIUM CHLORIDE 20 MEQ TABCR PO SCH ×3 (07:45→20:53)
[2018-05-14] MEDS: FERROUS GLUCONATE 324 MG TAB PO SCH ×2 (07:45→20:54)
[2018-05-14] MEDS: ATORVASTATIN 20 MG TAB PO SCH (07:45)
[2018-05-14] MEDS: METOPROLOL SUCC 50MG EXT REL TAB PO SCH ×2 (07:45→20:55)
[2018-05-14] MEDS: ASPIRIN 81 MG ECTAB PO SCH (07:46)
[2018-05-14] MEDS: FLUOXETINE HCL 20 MG CAP PO SCH ×2 (07:46→20:55)
[2018-05-14 09:58] LABS: CREATININE 2.23 mg/dl (0.60-1.40); POTASSIUM 3.1 mmol/L (3.5-5.1)
[2018-05-14] MEDS ORDERED: POTASSIUM CHLORIDE 10 MEQ TABCR PO STA (11:03)
--- NOTE | 2018-05-14 11:13 | Cardiology Follow-Up ---
Subjective General Date of Service: May 14, 2018. Chief Complaint: Follow-up, exertional chest tightness, abdominal distention Pt evaluation today including: conversation w/ patient, physical exam History of Present Illness The patient is a 73 year old male seen in cardiology follow-up. Since he was assessed yesterday in the emergency room. A Loera catheter had been placed but was ultimately removed last night at approximately 9 PM as he had significant pain with placement of the Loera catheter. Per his intake and output summary, he had 800 mL of urine output higher to midnight last night and 800 mL since. He describes that his chest pressure has resolved, but I have impression that this is because he is so consumed by his recent pubic discomfort that he is not concerned about his chest pain anymore. Troponin has been negative on a serial basis 3 thus far. His chemistry panel reveals creatinine that is relatively unchanged at 2.23 as compared to 2.27 yesterday. Allergies Coded Allergies: Iodinated Diagnostic Agents (Verified Adverse Reaction, Mild, GI UPSET, ) Social History Smoking Status: Former Smoker (from [id number]) Hx Tobacco Use In Past Year?: No Hx Alcohol Use - Type And Amou: No Hx Substance Use - Type And Am: No Problem List Medical Problems: (1) Acute exacerbation of congestive heart failure Status: Acute (2) CAIT (acute kidney injury) Status: Acute (3) Chest pain Status: Acute (4) Congestive heart failure Status: Acute (5) Fluid retention Status: Acute (6) SOB (shortness of breath) Status: Acute Physical Exam Vital Signs Last Vital Signs Documentation Date Time Temp Pulse Resp B/P (MAP) Pulse Ox O2 Delivery O2 Flow Rate FiO2 05/14/18 08:00 Room Air 05/14/18 07:34 36.6 78 18 145/82 (103) 94 05/13/18 20:00 96.0 Physical Exam Constitutional: General Apperance: heathly-appearing Head: normocephalic Neck: trachea midline Lungs: Auscultation: no wheezing, no rales/crackles Cardiovascular: Heart Auscultation: RRR, normal S2, no murmurs Abdomen: Inspection & Palpation: pertinent finding (Abdominal distention comminuted, nonpainful) Extremities: no edema, no palpable cord Neurologic: Gait & Station: pertinent finding (No focal deficits) Assessment and Plan Assessment and Plan Impression: 73-year-old male 1. Progressive exertional chest tightness, abdominal distention -Initial presentation concerning for acute on chronic diastolic heart failure -Past history of restrictive cardiomyopathy -Recent patient echocardiogram on 05/11/18 revealing grossly normal biventricular function 2. History of obstructive sleep apnea, obesity hypoventilation syndrome 3. Acute kidney insufficiency on chronic CKD Plan: The patient did not tolerate placement of Loera catheter. Hypokalemia was noted this morning and this is been replaced orally. I am going to proceed with another dose of oral diuretics, furosemide 60 mg daily given the shortage of Bumex. Continue subcutaneous heparin for DVT prophylaxis. The patient's intravascular volume status is somewhat difficult to assess on exam. We will proceed with cautious diuresis. Daily weights with standing scale. Laboratory Results Last 24 Hours Test 05/13/18 14:23 05/13/18 22:57 05/14/18 04:57 05/14/18 09:18 White Blood Count 10.42 K/uL Red Blood Count 4.80 M/uL Hemoglobin 14.7 g/dL Hematocrit 43.6 % Mean Corpuscular Volume 90.8 fL Mean Corpuscular Hemoglobin 30.6 pg Mean Corpuscular Hemoglobin Concent 33.7 g/dl Platelet Count 243 K/uL Mean Platelet Volume 10.8 fL Neutrophils (%) (Auto) 54.8 % Lymphocytes (%) (Auto) 32.5 % Monocytes (%) (Auto) 10.0 % Eosinophils (%) (Auto) 2.1 % Basophils (%) (Auto) 0.3 % Neutrophils # (Auto) 5.71 K/uL Lymphocytes # (Auto) 3.39 K/uL Monocytes # (Auto) 1.04 K/uL Eosinophils # (Auto) 0.22 K/uL Basophils # (Auto) 0.03 K/uL RDW Standard Deviation 44.3 fL RDW Coefficient of Variation 13.4 % Immature Granulocyte % (Auto) 0.3 % Immature Granulocyte # (Auto) 0.03 K/uL Prothrombin Time 10.1 SECONDS Prothromb Time International Ratio 1.0 Sodium Level 137 mmol/L 132 mmol/L Potassium Level 3.5 mmol/L 3.1 mmol/L Chloride Level 97 mmol/L 93 mmol/L Carbon Dioxide Level 32 mmol/L 33 mmol/L Anion Gap 9.0 mmol/L 6.0 mmol/L Blood Urea Nitrogen 34 mg/dl 42 mg/dl Creatinine 2.27 mg/dl 2.23 mg/dl Est Creatinine Clear Calc Drug Dose 42.5 ml/min 42.8 ml/min Estimated GFR () 32.4 33.1 Estimated GFR (Non- 28.0 28.6 BUN/Creatinine Ratio 15.0 19.0 Random Glucose 157 mg/dl 185 mg/dl Calcium Level 9.2 mg/dl 9.0 mg/dl Total Bilirubin 0.3 mg/dl Direct Bilirubin < 0.1 mg/dl Aspartate Amino Transf (AST/SGOT) 23 U/L Alanine Aminotransferase (ALT/SGPT) 36 U/L Alkaline Phosphatase 92 U/L Troponin I < 0.015 ng/ml < 0.015 ng/ml < 0.015 ng/ml Pro-B-Type Natriuretic Peptide 156 pg/ml Total Protein 7.6 gm/dl Albumin 3.6 gm/dl Lipase 387 U/L Triglycerides Level 211 mg/dl Cholesterol Level 152 mg/dl HDL Cholesterol 38 mg/dl LDL Cholesterol, Calculated 72 mg/dl VLDL Cholesterol, Calculated 42 mg/dl Cholesterol/HDL Ratio 4.0
[2018-05-14] MEDS ORDERED: FUROSEMIDE INJ 60 MG in SYRINGE 0 ML IV ONE (11:15)
[2018-05-14 11:40] VITALS: BP 124/76; PULSE 63; TEMP 36.6; O2SAT 93
[2018-05-14 15:50] VITALS: BP 115/70; PULSE 70; TEMP 36.8; O2SAT 96
[2018-05-14] MEDS ORDERED: PHENAZOPYRIDINE HCL 200 MG TAB PO ONE (18:39)
--- NOTE | 2018-05-14 18:41 | Hospitalist Progress Note ---
Hospitalist Progress Note Date of Service May 14, 2018. Subjective Pt evaluation today including: conversation w/ patient, conversation w/ practice management consultant (Cardiology) Feels his SOB is slightly improved from previous, abdomen feels a little less distended. He is having severe pain with urination since having Loera removed. No CP. All Other Systems: Reviewed and Negative Objective Vital Signs Date Time Temp Pulse Resp B/P (MAP) Pulse Ox O2 Delivery O2 Flow Rate FiO2 05/14/18 16:00 Room Air 05/14/18 15:50 36.8 70 18 115/70 (85) 96 Room Air 05/14/18 11:40 36.6 63 18 124/76 (92) 93 05/14/18 08:00 Room Air 05/14/18 07:34 36.6 78 18 145/82 (103) 94 05/14/18 04:54 36.5 62 21 125/85 (98) 97 Room Air 05/14/18 00:12 Room Air 05/13/18 23:12 67 92 05/13/18 22:27 36.9 76 20 130/84 (99) 93 Room Air 05/13/18 20:00 Room Air 96.0 Physical Exam General Appearance: WD/WN, no apparent distress, + obese Eyes: normal inspection, sclerae normal ENT: hearing grossly normal, pharynx normal Neck: trachea midline Respiratory/Chest: lungs clear, normal breath sounds, no respiratory distress, no accessory muscle use Cardiovascular: regular rate, rhythm, no murmur, + pertinent finding (trace pitting edema legs bilat) Abdomen: normal bowel sounds, non tender, soft Extremities: normal inspection, no calf tenderness, + swelling Neurologic/Psychiatric: alert, normal mood/affect, oriented x 3 Skin: normal color, warm/dry, no rash Laboratory Results Last 24 Hours Test 05/13/18 22:57 05/14/18 04:57 05/14/18 09:18 Troponin I < 0.015 ng/ml < 0.015 ng/ml Triglycerides Level 211 mg/dl Cholesterol Level 152 mg/dl HDL Cholesterol 38 mg/dl LDL Cholesterol, Calculated 72 mg/dl VLDL Cholesterol, Calculated 42 mg/dl Cholesterol/HDL Ratio 4.0 Sodium Level 132 mmol/L Potassium Level 3.1 mmol/L Chloride Level 93 mmol/L Carbon Dioxide Level 33 mmol/L Anion Gap 6.0 mmol/L Blood Urea Nitrogen 42 mg/dl Creatinine 2.23 mg/dl Est Creatinine Clear Calc Drug Dose 42.8 ml/min Estimated GFR () 33.1 Estimated GFR (Non- 28.6 BUN/Creatinine Ratio 19.0 Random Glucose 185 mg/dl Calcium Level 9.0 mg/dl Assessment and Plan Mr. Frank is a 72 year old man here with chest pain and acute on chronic diastolic CHF, along with CAIT. Acute/chronic diastolic CHF -with associated chest tightness. Troponin neg x 3. Recent outpt ECHO with grossly normal biventricular function. Cardiology suspects this is right sided CHF given h/o RAMAN and OHS -continue tele status - appreciate cardiology consultation -continue strict I/Os, low Na+ diet,. 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 Has been receiving increased doses of metolazone, Aldactone, and Bumex as an outpt prior to this Renal ultrasound without significant abnormality a few weeks ago -avoid nephrotoxins -renally dose meds -follow BMP -Consider referral to nephrology if renal funciton worsens Hypokalemia-secondary to loop diuretic use. K+ 3.1 today -replace today with total of KCl 100 meq po throughout the day -follow BMP in AM HTN - controlled -cont home Toprol XL, ASA for primary prevention RAMAN - stable -using BiPAP from home during hospitalization DM II, not on shelter insulin, controlled, last A1C 6.5% here in 04/2018. Metformin discontinued last admission due to elevated cabinet and trim installer -start accuchecks, SSI HL-continue statin Depression-stable -continue fluoxetine H/o iron deficiency anemia-hgb now stable, no longer microcytic -continue home po ferrous sulfate although could probably be stopped -need to make sure UTD on colonoscopy as an outpt Dysuria-secondary to Loera trauma -start pyridium 200mg po tid prn Proph-SQ heparin Dispo-remain on telemetry
[2018-05-14] MEDS ORDERED: PHENAZOPYRIDINE HCL 200 MG TAB PO PRN (18:45)
[2018-05-14 20:30] VITALS: BP 105/72; PULSE 74; TEMP 36.7; O2SAT 94
[2018-05-14 23:26] VITALS: BP 123/77; PULSE 80; TEMP 36.9; O2SAT 91
[2018-05-14] MEDS ORDERED: GLUCOSE 40% GEL 15 GM TUBE PO PRN (23:30)
[2018-05-14] MEDS ORDERED: GLUCOSE 10 TABS/TUBE PO PRN (23:30)
[2018-05-14] MEDS ORDERED: DEXTROSE 50% 50 ML SYR IV PRN (23:30)
[2018-05-14] MEDS ORDERED: CARBOHYDRATES FOR HYPOGLYCEMIA PO PRN (23:30)
[2018-05-14] MEDS ORDERED: GLUCAGON FOR INJ 1 MG VIAL SQ PRN (23:30)
[2018-05-15] VITALS (8 sets, daily range): BP systolic 108–144; BP diastolic 62–83; PULSE 62–88; TEMP 36.4–37; O2SAT 93–98
[2018-05-15 06:15] LABS: CALCIUM 9.2 mg/dl (8.5-10.1); CREATININE 2.03 mg/dl (0.60-1.40); POTASSIUM 3.3 mmol/L (3.5-5.1)
[2018-05-15] MEDS: HEPARIN SOD 5000 UNIT/0.5 ML CARP SQ SCH ×3 (06:22→20:30)
[2018-05-15] MEDS ORDERED: MAGNESIUM SULFATE 1GM / D5W 100 ML IV STA (08:10)
[2018-05-15] MEDS: INSULIN ASPART 100 UNITS/ML 3 ML PEN SC SCH ×4 (08:12→20:41)
[2018-05-15] MEDS: FLUOXETINE HCL 20 MG CAP PO SCH ×2 (08:15→20:32)
[2018-05-15] MEDS: ASPIRIN 81 MG ECTAB PO SCH (08:15)
[2018-05-15] MEDS: ATORVASTATIN 20 MG TAB PO SCH (08:15)
[2018-05-15] MEDS: PANTOprazole SOD 40 MG TAB PO SCH (08:16)
[2018-05-15] MEDS: FERROUS GLUCONATE 324 MG TAB PO SCH ×2 (08:16→20:31)
[2018-05-15] MEDS: METOPROLOL SUCC 50MG EXT REL TAB PO SCH ×2 (08:16→20:32)
[2018-05-15] MEDS: POTASSIUM CHLORIDE 20 MEQ TABCR PO SCH ×2 (09:07→20:33)
[2018-05-15] MEDS ORDERED: SPIRONOLACTONE 25 MG TAB PO ONE (10:57)
[2018-05-15] MEDS ORDERED: FUROSEMIDE INJ 60 MG in SYRINGE 0 ML IV ONE (11:15)
--- NOTE | 2018-05-15 11:24 | Cardiology Follow-Up ---
Subjective General Date of Service: May 15, 2018. Chief Complaint: Follow-up, exertional chest tightness, abdominal distention Pt evaluation today including: conversation w/ patient, physical exam History of Present Illness The patient is a 73 year old male seen in follow up. Pt feels improved . Less subjective abdominal bloating, less chest pressure ( although he has not walked much). Telemetry reveals stable SR. Received furosemide 60 mg IV 05/14 and fluid balance negative 1/3 L, down 1 kg, creatinine of 2.23 improved to 2.03. Allergies Coded Allergies: Iodinated Diagnostic Agents (Verified Adverse Reaction, Mild, GI UPSET, ) Social History Smoking Status: Former Smoker (from [id number]) Hx Tobacco Use In Past Year?: No Hx Alcohol Use - Type And Amou: No Hx Substance Use - Type And Am: No Problem List Medical Problems: (1) Acute exacerbation of congestive heart failure Status: Acute (2) CAIT (acute kidney injury) Status: Acute (3) Chest pain Status: Acute (4) Congestive heart failure Status: Acute (5) Fluid retention Status: Acute (6) SOB (shortness of breath) Status: Acute Physical Exam Vital Signs Last Vital Signs Documentation Date Time Temp Pulse Resp B/P (MAP) Pulse Ox O2 Delivery O2 Flow Rate FiO2 05/15/18 11:07 36.7 63 18 117/80 (92) 94 Room Air 05/13/18 20:00 96.0 Physical Exam Constitutional: General Apperance: heathly-appearing Head: normocephalic Neck: trachea midline Lungs: Auscultation: no wheezing, no rales/crackles Cardiovascular: Heart Auscultation: RRR, normal S2, no murmurs Abdomen: Inspection & Palpation: pertinent finding (Abdominal distention comminuted, nonpainful) Extremities: no edema, no palpable cord Neurologic: Gait & Station: pertinent finding (No focal deficits) Assessment and Plan Assessment and Plan Impression: 73-year-old male 1. Progressive exertional chest tightness, abdominal distention -Initial presentation concerning for acute on chronic diastolic heart failure -Past history of restrictive cardiomyopathy -Recent patient echocardiogram on 05/11/18 revealing grossly normal biventricular function 2. History of obstructive sleep apnea, obesity hypoventilation syndrome 3. Acute kidney insufficiency on chronic CKD Plan: Replace potassium. Furosemide 60 mg IV x 1 again now. Resume aldactone at low dose 12. 5 mg daily. Ambulate in dias as tolerated. Remain in hospital. Repeat BMP on 05/16. Laboratory Results Last 24 Hours Test 05/15/18 05:15 05/15/18 08:09 Sodium Level 134 mmol/L Potassium Level 3.3 mmol/L Chloride Level 95 mmol/L Carbon Dioxide Level 31 mmol/L Anion Gap 8.0 mmol/L Blood Urea Nitrogen 41 mg/dl Creatinine 2.03 mg/dl Est Creatinine Clear Calc Drug Dose 47.0 ml/min Estimated GFR () 37.1 Estimated GFR (Non- 32.0 BUN/Creatinine Ratio 20.3 Random Glucose 125 mg/dl Calcium Level 9.2 mg/dl Magnesium Level 1.9 mg/dl Bedside Glucose 185 mg/dl
[2018-05-15] MEDS: ACETAMINOPHEN 325 MG TAB PO PRN (13:49)
[2018-05-15] MEDS ORDERED: PHENAZOPYRIDINE HCL 200 MG TAB PO ONE (14:12)
--- NOTE | 2018-05-15 14:17 | Hospitalist Progress Note ---
Hospitalist Progress Note Date of Service May 15, 2018. Subjective Pt evaluation today including: conversation w/ patient, conversation w/ is consultant (Cardiology) Patient reports not feeling short of breath at rest, he did get up with PT and did not feel short of breath with that either. Has an occasional chest tightness that is fleeting. He reports having a headache ever since he woke up this morning. He did not use the BiPAP provided by the hospital and plans on using his own from home for tonight. He also reports he normally drinks a liter and a half of coffee every morning and has only had a half a cup since being here. Male : + dysuria (Mild, but improved from yesterday with Pyridium) All Other Systems: Reviewed and Negative Objective Vital Signs Date Time Temp Pulse Resp B/P (MAP) Pulse Ox O2 Delivery O2 Flow Rate FiO2 05/15/18 11:07 36.7 63 18 117/80 (92) 94 Room Air 05/15/18 10:56 88 98 05/15/18 08:00 Room Air 05/15/18 07:36 36.8 62 18 144/82 (102) 95 Room Air 05/15/18 04:00 37.0 69 18 127/81 (96) 94 Room Air 05/15/18 00:00 Room Air 05/14/18 23:26 36.9 80 18 123/77 (92) 91 Room Air 05/14/18 20:30 36.7 74 18 105/72 (83) 94 Room Air 05/14/18 20:00 Room Air 05/14/18 16:00 Room Air 05/14/18 15:50 36.8 70 18 115/70 (85) 96 Room Air Physical Exam General Appearance: WD/WN, no apparent distress Eyes: normal inspection, sclerae normal ENT: hearing grossly normal Neck: trachea midline Respiratory/Chest: lungs clear, normal breath sounds, no respiratory distress, no accessory muscle use Cardiovascular: regular rate, rhythm, no edema, no murmur Abdomen: normal bowel sounds, non tender, soft (And mildly distended, obese) Extremities: no pedal edema, no calf tenderness, + pertinent finding (With varicose veins) Neurologic/Psychiatric: alert, normal mood/affect, oriented x 3 Skin: normal color, warm/dry, no rash Laboratory Results Last 24 Hours Test 05/15/18 05:15 05/15/18 08:09 05/15/18 11:19 Sodium Level 134 mmol/L Potassium Level 3.3 mmol/L Chloride Level 95 mmol/L Carbon Dioxide Level 31 mmol/L Anion Gap 8.0 mmol/L Blood Urea Nitrogen 41 mg/dl Creatinine 2.03 mg/dl Est Creatinine Clear Calc Drug Dose 47.0 ml/min Estimated GFR () 37.1 Estimated GFR (Non- 32.0 BUN/Creatinine Ratio 20.3 Random Glucose 125 mg/dl Calcium Level 9.2 mg/dl Magnesium Level 1.9 mg/dl Bedside Glucose 185 mg/dl 125 mg/dl Assessment and Plan Mr. Frank is a 72 year old man here with chest pain and acute on chronic diastolic CHF, along with CAIT. Acute/chronic diastolic CHF -with associated chest tightness. Troponin neg x 3. Recent outpt ECHO with grossly normal biventricular function. Cardiology suspects this is right sided CHF given h/o RAMAN and OHS. Has lost 1 kg of body weight and is net -2.6 L since admission. He drinks 1.5 L daily of just coffee alone, so I suspect he is drinking way too much fluid at home-counseled on this today Has received daily dosing of IV Lasix -Lasix 60 mg IV 1 ordered by cardiology today, restarting spironolactone 12.5 mg daily in the morning tomorrow (lower than home dose) -continue tele status-no significant events so far - appreciate cardiology consultation -continue strict I/Os, low Na+ diet,. 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 Has been receiving increased doses of metolazone, Aldactone, and Bumex as an outpt prior to this which may have contributed to this Improving likely due to holding higher doses of diuretics, yet continues with good negative volume status Renal ultrasound without significant abnormality a few weeks ago -avoid nephrotoxins -renally dose meds -follow BMP -Consider referral to nephrology if renal function worsens Hypokalemia-secondary to loop diuretic use. K+ low again today at 3.3 -Increase home potassium to 40 mEq p.o. 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 3 times daily to a scheduled dose rather than as needed as he has not been asking for it much Proph-SQ heparin Dispo-remain on telemetry
[2018-05-15] MEDS ORDERED: NURSING VERBAL MED ORDER ONE (18:15)
[2018-05-15] MEDS ORDERED: TRAMADOL HCL 50 MG TAB PO PRN (18:15)
[2018-05-15] MEDS: PHENAZOPYRIDINE HCL 200 MG TAB PO SCH (20:30)
[2018-05-16] VITALS (8 sets, daily range): BP systolic 96–142; BP diastolic 59–88; PULSE 61–89; TEMP 36.5–37.2; O2SAT 91–94
[2018-05-16] MEDS: HEPARIN SOD 5000 UNIT/0.5 ML CARP SQ SCH ×3 (05:21→21:26)
[2018-05-16 06:19] LABS: HEMATOCRIT 43.8 % (42-52); HEMOGLOBIN 14.5 g/dL (14.0-18.0); MEAN CELL VOLUME 90.1 fL (80-100); MEAN CORPUSCULAR HEMOGLOBIN 29.8 pg (25-34); MEAN CORPUSCULAR HGB CONC 33.1 g/dl (32-36); MEAN PLATELET VOLUME 10.8 fL (7.4-10.4); PLATELET COUNT 230 K/uL (130-400); RED CELL DISTRIBUTION WIDTH CV 13.4 % (11.5-14.5); WHITE BLOOD COUNT 9.35 K/uL (4.8-10.8)
[2018-05-16 06:50] LABS: CALCIUM 9.7 mg/dl (8.5-10.1); CREATININE 1.91 mg/dl (0.60-1.40); POTASSIUM 3.4 mmol/L (3.5-5.1)
[2018-05-16] MEDS: PANTOprazole SOD 40 MG TAB PO SCH (07:49)
[2018-05-16] MEDS: ATORVASTATIN 20 MG TAB PO SCH (07:49)
[2018-05-16] MEDS: FERROUS GLUCONATE 324 MG TAB PO SCH ×2 (07:50→21:25)
[2018-05-16] MEDS: PHENAZOPYRIDINE HCL 200 MG TAB PO SCH ×3 (07:50→21:23)
[2018-05-16] MEDS: FLUOXETINE HCL 20 MG CAP PO SCH ×2 (07:50→21:24)
[2018-05-16] MEDS: POTASSIUM CHLORIDE 20 MEQ TABCR PO SCH ×2 (07:50→21:24)
[2018-05-16] MEDS: METOPROLOL SUCC 50MG EXT REL TAB PO SCH ×2 (07:50→21:23)
[2018-05-16] MEDS: ASPIRIN 81 MG ECTAB PO SCH (07:51)
[2018-05-16] MEDS: INSULIN ASPART 100 UNITS/ML 3 ML PEN SC SCH ×4 (07:55→21:00)
[2018-05-16] MEDS ORDERED: SPIRONOLACTONE 25 MG TAB PO SCH (09:00)
[2018-05-16] MEDS ORDERED: FUROSEMIDE INJ 60 MG in SYRINGE 0 ML IV ONE (10:00)
--- NOTE | 2018-05-16 15:49 | Cardiology Follow-Up ---
Subjective General Date of Service: May 16, 2018. Chief Complaint: Follow-up, exertional chest tightness, abdominal distention Pt evaluation today including: conversation w/ patient, conversation w/ family History of Present Illness The patient is a 73 year old male seen in follow-up. He is accompanied by his spouse. He notes ability to walk in the hallway. He has to pace himself, but he notes that his chest tightness has resolved compared to admission. His daily weight is relatively unchanged compared to yesterday, but he did have 3.6 L of urine output yesterday with a -2.4 L fluid balance yesterday. He is -1.3 L thus far today. Telemetry reveals stable sinus rhythm and sinus bradycardia with occasional PVCs. Allergies Coded Allergies: Iodinated Diagnostic Agents (Verified Adverse Reaction, Mild, GI UPSET, ) Social History Smoking Status: Former Smoker (from [id number]) Hx Tobacco Use In Past Year?: No Hx Alcohol Use - Type And Amou: No Hx Substance Use - Type And Am: No Problem List Medical Problems: (1) Acute exacerbation of congestive heart failure Status: Acute (2) CAIT (acute kidney injury) Status: Acute (3) Chest pain Status: Acute (4) Congestive heart failure Status: Acute (5) Fluid retention Status: Acute (6) SOB (shortness of breath) Status: Acute Physical Exam Vital Signs Last Vital Signs Documentation Date Time Temp Pulse Resp B/P (MAP) Pulse Ox O2 Delivery O2 Flow Rate FiO2 05/16/18 15:20 37.0 69 18 96/62 (73) 92 Room Air 05/15/18 23:30 96.0 Physical Exam Constitutional: General Apperance: heathly-appearing Head: normocephalic Neck: trachea midline Lungs: Auscultation: no wheezing, no rales/crackles Cardiovascular: Heart Auscultation: RRR, normal S2, no murmurs Abdomen: Inspection & Palpation: pertinent finding (Abdominal distention comminuted, nonpainful) Extremities: no edema, no palpable cord Neurologic: Gait & Station: pertinent finding (No focal deficits) Assessment and Plan Assessment and Plan Impression: 73-year-old male 1. Progressive exertional chest tightness, abdominal distention -Initial presentation concerning for acute on chronic diastolic heart failure -Past history of restrictive cardiomyopathy -Recent patient echocardiogram on 05/11/18 revealing grossly normal biventricular function 2. History of obstructive sleep apnea, obesity hypoventilation syndrome 3. Acute kidney insufficiency on chronic CKD -creatinine trending toward improvement. Plan: Patient received furosemide 60 mg IV as well as spironolactone 12.5 mg today, in addition to potassium supplementation. He continues to trend toward clinical improvement. Dr. Riddle had a long conversation with him about dietary adherence, adhering to fluid restriction and weight loss and he is interested in pursuing this. Update chemistry panel first thing in the morning tomorrow. Will dose diuretic accordingly after that reassess candidacy for discharge. Increase spironolactone to 25 mg daily starting tomorrow. Laboratory Results Last 24 Hours Test 05/15/18 16:53 05/15/18 20:36 05/16/18 05:52 05/16/18 07:46 Bedside Glucose 110 mg/dl 155 mg/dl 128 mg/dl White Blood Count 9.35 K/uL Red Blood Count 4.86 M/uL Hemoglobin 14.5 g/dL Hematocrit 43.8 % Mean Corpuscular Volume 90.1 fL Mean Corpuscular Hemoglobin 29.8 pg Mean Corpuscular Hemoglobin Concent 33.1 g/dl RDW Standard Deviation 44.0 fL RDW Coefficient of Variation 13.4 % Platelet Count 230 K/uL Mean Platelet Volume 10.8 fL Sodium Level 134 mmol/L Potassium Level 3.4 mmol/L Chloride Level 96 mmol/L Carbon Dioxide Level 31 mmol/L Anion Gap 7.0 mmol/L Blood Urea Nitrogen 38 mg/dl Creatinine 1.91 mg/dl Est Creatinine Clear Calc Drug Dose 49.8 ml/min Estimated GFR () 40.0 Estimated GFR (Non- 34.5 BUN/Creatinine Ratio 19.7 Random Glucose 127 mg/dl Calcium Level 9.7 mg/dl Magnesium Level 2.2 mg/dl Test 05/16/18 11:15 Bedside Glucose 113 mg/dl
--- NOTE | 2018-05-16 19:53 | Hospitalist Progress Note ---
Hospitalist Progress Note Date of Service May 16, 2018. Subjective Pt evaluation today including: conversation w/ patient, conversation w/ medical economics consultant (Cardiology) Feeling better than on admission. Weight unchanged from yesterday, but I/Os net neg 4L so far. He is ambulating with some mild SOB, no CP. Feels thirsty and does not like the fluid restriction. Discussed the importance of fluid restriction and low sodium diet after discharge. No further headache Tele with NSR, PVCs, rates in 60-70s Pt asks if his heart failure will improve with aggressive weight loss regimen All Other Systems: Reviewed and Negative Objective Vital Signs Date Time Temp Pulse Resp B/P (MAP) Pulse Ox O2 Delivery O2 Flow Rate FiO2 05/16/18 19:40 36.5 68 18 108/73 (85) 93 Room Air 05/16/18 16:00 Room Air 05/16/18 15:20 37.0 69 18 96/62 (73) 92 Room Air 05/16/18 11:29 36.7 61 20 106/63 (77) 93 05/16/18 08:00 93 Room Air 05/16/18 07:26 36.7 67 18 142/88 (106) 93 05/16/18 04:00 36.7 68 20 135/83 (100) 92 Room Air 05/16/18 00:23 36.8 89 20 127/80 (96) 94 Room Air 05/15/18 23:30 93 Room Air 96.0 05/15/18 20:17 36.4 72 18 108/62 (77) 93 Room Air Physical Exam General Appearance: WD/WN, no apparent distress, + obese Eyes: normal inspection, EOMI, sclerae normal ENT: hearing grossly normal Neck: trachea midline Respiratory/Chest: lungs clear, normal breath sounds, no respiratory distress, no accessory muscle use Cardiovascular: regular rate, rhythm, no edema, no murmur Abdomen: normal bowel sounds, non tender, soft (and obese) Extremities: normal inspection (except with varicosities), no pedal edema, no calf tenderness Neurologic/Psychiatric: alert, normal mood/affect, oriented x 3 Skin: normal color, warm/dry, no rash Laboratory Results Last 24 Hours Test 05/15/18 20:36 05/16/18 05:52 05/16/18 07:46 05/16/18 11:15 Bedside Glucose 155 mg/dl 128 mg/dl 113 mg/dl White Blood Count 9.35 K/uL Red Blood Count 4.86 M/uL Hemoglobin 14.5 g/dL Hematocrit 43.8 % Mean Corpuscular Volume 90.1 fL Mean Corpuscular Hemoglobin 29.8 pg Mean Corpuscular Hemoglobin Concent 33.1 g/dl RDW Standard Deviation 44.0 fL RDW Coefficient of Variation 13.4 % Platelet Count 230 K/uL Mean Platelet Volume 10.8 fL Sodium Level 134 mmol/L Potassium Level 3.4 mmol/L Chloride Level 96 mmol/L Carbon Dioxide Level 31 mmol/L Anion Gap 7.0 mmol/L Blood Urea Nitrogen 38 mg/dl Creatinine 1.91 mg/dl Est Creatinine Clear Calc Drug Dose 49.8 ml/min Estimated GFR () 40.0 Estimated GFR (Non- 34.5 BUN/Creatinine Ratio 19.7 Random Glucose 127 mg/dl Calcium Level 9.7 mg/dl Magnesium Level 2.2 mg/dl Test 05/16/18 16:29 Bedside Glucose 125 mg/dl Assessment and Plan Mr. Frank is a 72 year old man here with chest pain and acute on chronic diastolic CHF, along with CAIT. Acute/chronic diastolic CHF -with associated chest tightness. Troponin neg x 3. Recent outpt ECHO with grossly normal biventricular function. Cardiology suspects this is right sided CHF given h/o RAMAN and OHS. Has lost 1 kg of body weight and is net -4.4 L since admission. He drinks 1.5 L daily of just coffee alone, so I suspect he is drinking way too much fluid at home-counseled on this extensively again today Has received daily dosing of IV Lasix so far and renal function improving -Lasix 60 mg IV 1 ordered by cardiology today, Cardio increasing spironolactone to 25mg po qAM -continue tele status-no significant events so far - appreciate cardiology consultation -continue strict I/Os, low Na+ diet,. 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 Prior to admission, was receiving increased doses of metolazone, Aldactone , and Bumex as an outpt prior to this which may have contributed to this Improving likely due to holding higher doses of diuretics, yet continues with good negative volume status Renal ultrasound without significant abnormality a few weeks ago -avoid nephrotoxins -renally dose meds -follow BMP -Consider referral to nephrology if renal function worsens Hypokalemia-secondary to loop diuretic use. K+ low again today at 3.4 -continue increased dose of potassium 40 mEq p.o. twice daily -follow BMP in AM -restarted aldactone which should help Hypomagnesemia-resolved after replacement follow Mg levels HTN - controlled -cont home Toprol XL, ASA for primary prevention RAMAN - stable -using BiPAP from home during hospitalization Headache-likely secondary to caffeine withdrawal-now resolved -Acetaminophen as needed DM II, not on fpc insulin, controlled, last A1C 6.5% here in 04/2018. 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 3 times daily Proph-SQ heparin Dispo-remain on telemetry
[2018-05-17 04:25] VITALS: BP 129/79; PULSE 66; TEMP 36.7; O2SAT 93
[2018-05-17] MEDS: HEPARIN SOD 5000 UNIT/0.5 ML CARP SQ SCH (05:17)
[2018-05-17 06:23] LABS: CALCIUM 9.6 mg/dl (8.5-10.1); CREATININE 1.79 mg/dl (0.60-1.40); POTASSIUM 3.7 mmol/L (3.5-5.1)
[2018-05-17 07:24] VITALS: BP 126/81; PULSE 61; TEMP 36.5; O2SAT 95
[2018-05-17] MEDS: POTASSIUM CHLORIDE 20 MEQ TABCR PO SCH (08:14)
[2018-05-17] MEDS: ASPIRIN 81 MG ECTAB PO SCH (08:14)
[2018-05-17] MEDS: FLUOXETINE HCL 20 MG CAP PO SCH (08:14)
[2018-05-17] MEDS: PANTOprazole SOD 40 MG TAB PO SCH (08:14)
[2018-05-17] MEDS: PHENAZOPYRIDINE HCL 200 MG TAB PO SCH (08:14)
[2018-05-17] MEDS: FERROUS GLUCONATE 324 MG TAB PO SCH (08:15)
[2018-05-17] MEDS: ATORVASTATIN 20 MG TAB PO SCH (08:15)
[2018-05-17] MEDS: METOPROLOL SUCC 50MG EXT REL TAB PO SCH (08:15)
[2018-05-17] MEDS: INSULIN ASPART 100 UNITS/ML 3 ML PEN SC SCH ×2 (08:25→12:05)
[2018-05-17] MEDS ORDERED: SPIRONOLACTONE 25 MG TAB PO SCH (09:00)
[2018-05-17] MEDS ORDERED: FUROSEMIDE INJ 60 MG in SYRINGE 0 ML IV STA (09:24)
--- NOTE | 2018-05-17 09:33 | Cardiology Follow-Up ---
Subjective General Date of Service: May 17, 2018. Chief Complaint: Follow-up, exertional chest tightness, abdominal distention Pt evaluation today including: conversation w/ patient, physical exam History of Present Illness The patient is a 73 year old male seen in cardiology follow-up today. Telemetry reveals stable sinus rhythm in the 60 70 bpm range with occasional supraventricular and ventricular ectopy. No sustained arrhythmias. The patient has been able to ambulate in the hallway reasonably well with improvement in his chest pressure compared to admission. His creatinine continues to trend toward improvement with improved reading of 1.79 yesterday. Urine output was stable yesterday. Allergies Coded Allergies: Iodinated Diagnostic Agents (Verified Adverse Reaction, Mild, GI UPSET, ) Social History Smoking Status: Former Smoker (from [id number]) Hx Tobacco Use In Past Year?: No Hx Alcohol Use - Type And Amou: No Hx Substance Use - Type And Am: No Problem List Medical Problems: (1) Acute exacerbation of congestive heart failure Status: Acute (2) CAIT (acute kidney injury) Status: Acute (3) Chest pain Status: Acute (4) Congestive heart failure Status: Acute (5) Fluid retention Status: Acute (6) SOB (shortness of breath) Status: Acute Physical Exam Vital Signs Last Vital Signs Documentation Date Time Temp Pulse Resp B/P (MAP) Pulse Ox O2 Delivery O2 Flow Rate FiO2 05/17/18 07:24 36.5 61 18 126/81 (96) 95 Room Air 05/15/18 23:30 96.0 Physical Exam Constitutional: General Apperance: heathly-appearing Head: normocephalic Neck: trachea midline Lungs: Auscultation: no wheezing, no rales/crackles Cardiovascular: Heart Auscultation: RRR, normal S2, no murmurs Abdomen: Inspection & Palpation: pertinent finding (Abdominal distention comminuted, nonpainful) Extremities: no edema, no palpable cord Neurologic: Gait & Station: pertinent finding (No focal deficits) Assessment and Plan Assessment and Plan Impression: 73-year-old male 1. Progressive exertional chest tightness, abdominal distention -Initial presentation concerning for acute on chronic diastolic heart failure -Remote diagnosis of restrictive cardiomyopathy. -Past history of restrictive cardiomyopathy -Recent patient echocardiogram on 05/11/18 revealing grossly normal biventricular function The echocardiogram however it is technically limited to some degree due to his body habitus, and the Doppler assessment for restriction was therefore technically limited and unhelpful per my personal assessment. The right ventricle chamber size and systolic function however are normal without findings of pulmonary hypertension 2. History of obstructive sleep apnea, obesity hypoventilation syndrome 3. Acute kidney insufficiency on chronic CKD -creatinine trending toward improvement. Plan: Patient is stable for discharge today with clinical improvement in his symptoms , mild status, and renal function. When he was discharged on 04/22/18 discharge included carvedilol 12.5 mg twice daily. He had since been transitioned to metoprolol succinate and we are going to continue the metoprolol. At that time his diuretic regimen included Bumex 1 mg tablets, 2 tablets by mouth 2 times per day, Spironolactone 25 mg twice daily, And metolazone 2.5 mg on Mondays, Wednesdays and Fridays. along with potassium chloride of 20 Meq, TID. He was readmitted with recent escalation in his diuretic therapy to Bumex 3 mg twice a day, Spironolactone 50 mg twice a day, Metolazone 5 mg daily 3 days and then he was to reduce to 2.5 mg daily. As of today, 05/17/18, will provide furosemide 60 mg IV x 1 this am. Discharge on: bumex 1 mg tablets, 3 mg two times per day. Spironolactone 25 mg, two times per day. Potassium chloride 20 Meq three times per day Metolazone 2.5 mg , three times per week on Mondays, Mon, and Fridays only. -Patient instructed to adhere to a 1.5 L fluid restriction at home. -Recommend specifically that he watches his fluid intake with such things as water and coffee as he describes drinking 3 pots of coffee at home per day Recommended that he looks into weight loss, perhaps with weight watchers. Recommend chemistry panel in about a week, next Monday or , Ellen Henderson. I will arrange follow-up in the office, likely with me within 7-10 days. Laboratory Results Last 24 Hours Test 05/16/18 11:15 05/16/18 16:29 05/16/18 20:35 05/17/18 05:15 Bedside Glucose 113 mg/dl 125 mg/dl 154 mg/dl Sodium Level 134 mmol/L Potassium Level 3.7 mmol/L Chloride Level 98 mmol/L Carbon Dioxide Level 29 mmol/L Anion Gap 7.0 mmol/L Blood Urea Nitrogen 36 mg/dl Creatinine 1.79 mg/dl Est Creatinine Clear Calc Drug Dose 53.1 ml/min Estimated GFR () 43.2 Estimated GFR (Non- 37.3 BUN/Creatinine Ratio 20.2 Random Glucose 125 mg/dl Calcium Level 9.6 mg/dl Chemistry Specimen Hemolysis Test 05/17/18 07:33 Bedside Glucose 126 mg/dl
[2018-05-17 11:14] VITALS: BP 119/77; PULSE 67; TEMP 36.8; O2SAT 95
--- NOTE | 2018-05-17 11:43 | Discharge Summary ---
Discharge Summary Date of Service May 17, 2018. Discharge Summary Admission Date: May 13, 2018 at 17:09 Discharge Date: May 17, 2018 Discharge Disposition: Home Principal Diagnosis: Acute on chronic diastolic CHF Problems/Secondary Diagnoses: CAIT in the setting of CKD stage III Chest pain secondary to acute CHF RAMAN on BiPAP Hypokalemia Hypomagnesemia HTN Headache-likely secondary to caffeine withdrawal-resolved DM II, not on chcf insulin, controlled Dyslipidemia Major depressive disorder H/o iron deficiency anemia Dysuria-secondary to [place] trauma Obesity, BMI 39.2 Immunizations: Have You Had Influenza Vaccine: Yes History of Tetanus Vaccine?: Unknown History of Pneumococcal: Yes History of Hepatitis B Vaccine: No Procedures: Chest x-ray Venous Doppler lower extremity bilaterally Consultations: Cardiology Medication Reconciliation New Medications: Metolazone (Zaroxolyn) 2.5 Mg Tab 2.5 MG PO DAILY, #12 TAB ONLY ON Monday AND MONDAY Acetaminophen (Mapap) 325 Mg Tab 650 MG PO Q4H PRN for Pain or Fever for 30 Days Changed Medications: Spironolactone (Aldactone) 25 Mg Tab 25 MG PO BID for 30 Days (Changed from: 50 MG) Continued Medications: Aspirin (Aspirin Ec) 81 Mg Tab 81 MG PO DAILY Atorvastatin (Lipitor) 20 Mg Tab 20 MG PO DAILY Bumetanide (Bumetanide) 1 Mg Tab 3 MG PO BID Ferrous Gluconate (Iron Supplement) 324 Mg Tab 324 MG PO BID Fluoxetine HCl (Fluoxetine HCl) 20 Mg Cap 20 MG PO BID Metoprolol Succ (Toprol Xl) (Toprol-Xl) 50 Mg Tabcr 50 MG PO BID, #30 TAB Omeprazole (Prilosec) 20 Mg Capcr 20 MG PO QAM, 0 Refills Potassium Ext Rel (Klor-Con) 20 Meq Tabcr 20 MEQ PO TID, TAB Discontinued Medications: Metolazone (Zaroxolyn) 5 Mg Tab 5 MG PO DAILY, TAB Discharge Exam Patient doing much better. He denies any chest tightness at rest or with ambulation. Denies shortness of breath. He continues to be not negative on his diuresis although his weight has not decreased significantly in the last 2 days. He denies lightheadedness or headache, denies abdominal pain or bloating. He is anxious for discharge home. I discussed the case at length with the medical coding technician prior to discharge. Telemetry with normal sinus rhythm and occasional PACs and PVCs. Physical Exam General Appearance: WD/WN, no apparent distress, + obese Eyes: normal inspection, EOMI, sclerae normal ENT: hearing grossly normal Neck: trachea midline Respiratory/Chest: lungs clear, normal breath sounds, no respiratory distress, no accessory muscle use Cardiovascular: regular rate, rhythm, no edema, no murmur Abdomen: normal bowel sounds, non tender, soft (and obese) Extremities: normal inspection (except with varicosities), no pedal edema, no calf tenderness Neurologic/Psychiatric: alert, normal mood/affect, oriented x 3 Skin: normal color, warm/dry, no ryley Review of Systems: Constitutional: No problem reported Eyes: No problem reported ENT: No problem reported Respiratory: No problem reported Cardiovascular: No problem reported Abdomen: No problem reported Musculoskeletal: No problem reported Genitourinary - Male: No problem reported Neurologic: No problem reported Psychiatric: No problem reported Endocrine: No problem reported Hematologic / Lymphatic: No problem reported Integumentary: No problem reported Hospital Course Mr. Frank is a 72 year old man here with chest pain and acute on chronic diastolic CHF, along with CAIT. Acute/chronic diastolic CHF -with associated chest tightness. Troponin neg x 3. Recent outpt ECHO with grossly normal biventricular function. Cardiology suspects this is right sided CHF given h/o RAMAN and OHS. Has lost 4 kg of body weight and is now net -5.52 L since admission. He drinks 1.5 L daily of just coffee alone, so I suspect he is drinking way too much fluid at home-counseled on this extensively again today about importance of fluid restriction Has received daily dosing of IV Lasix so far and renal function continued to improve -He had no significant events on telemetry monitoring - appreciate cardiology consultation -continue strict I/Os, low Na+ diet,. daily weights to continue at home -Continue to fluid restrict to 1800 mL at home His new home regimen will be: Bumex 1 mg tablets, 3 mg two times per day. Spironolactone 25 mg, two times per day. Potassium chloride 20 Meq three times per day Metolazone 2.5 mg , three times per week on Mondays, Mon, and Fridays only. -He will follow-up with cardiology within 1 week and check a BMP prior to that CAIT in setting of CKD stage III- baseline gauger chief delivery around 1.8 after previous admission, was up to 2.37 on admission here and now improved again today at 1.79. Prior to admission, was receiving increased doses of metolazone, Aldactone , and Bumex as an outpt prior to this which may have contributed to this Improving likely due to holding higher doses of diuretics, yet continues with good negative volume status Renal ultrasound without significant abnormality a few weeks ago -avoid nephrotoxins -renally dose meds -follow BMP early next week as above -Consider referral to nephrology as an outpatient if renal function worsens -Counseled on low-sodium diet, avoidance of animal proteins, and avoidance of NSAIDs Hypokalemia-secondary to loop diuretic use. Now improved with adding Aldactone back on -continue potassium replacement 20 mEq p.o. 3 times daily -follow BMP early next week -Restarted Aldactone at 25 mg p.o. twice daily Hypomagnesemia-resolved after replacement HTN - controlled -cont home Toprol XL, ASA for primary prevention RAMAN - stable -using BiPAP from home during hospitalization Headache-likely secondary to caffeine withdrawal-now resolved -Acetaminophen as needed DM II, not on intermodal customer service insulin, controlled, last A1C 6.5% here in 04/2018. Metformin discontinued last admission due to elevated gauger chief delivery Received sliding scale insulin while here and was very well controlled -Follow-up with PCP HL-continue statin Depression-stable -continue fluoxetine H/o iron deficiency anemia-hgb now stable, no longer microcytic -continue home po ferrous sulfate although could probably be stopped -need to make sure UTD on colonoscopy as an outpt Dysuria-secondary to [place] trauma-improving -Received Pyridium 200 mg p.o. 3 times daily and can discontinue upon discharge Obesity, BMI 39.2-counseled extensively on the importance of weight loss -Recommend he follow-up with a dietitian and a weight loss program to help him with this-he is very interested in seeing a dietitian and will ask his PCP about it Stable for discharge to home Total Time Spent: Greater than 30 minutes This includes examination of the patient, discharge planning, medication reconciliation, and communication with other providers. Discharge Instructions Please refer to the electronic Patient Visit Report (Discharge Instructions) for additional information. Follow-Up With PCP within 1 week With cardiology within 1 week Check BMP in 5 days Additional Copies To Pepe Peterson M.D.; Jose L Griffin M.D.
[2018-05-17] MEDS ORDERED: ACET-1047 PO (11:59)
[2018-05-17] MEDS ORDERED: METO2.5T PO (11:59)
[2018-05-17] MEDS ORDERED: SPIR25TA PO (11:59)
--- NOTE | 2018-05-17 12:03 | Discharge Instructions ---
Discharge Instructions Date of Service May 17, 2018. Admission Reason for Admission: SOB Discharge Discharge Diagnosis / Problem: Acute on chronic diastolic CHF Discharge Goals Goal(s): Improve disease control, Diagnostic testing, Therapeutic intervention Activity Recommendations Activity Limitations: as noted below Exercise/Sports Limitations: gradually increase as tolerated Shower/Bathe: no limitations . Instructions / Follow-Up Instructions / Follow-Up You were admitted with shortness of breath due to overload of fluid. This is from your congestive heart failure. You were given IV Lasix and lost quite a bit of fluid while here. It is very important that you restrict the amount of fluid you taken every day to 1800 ML's or less. Please continue to weigh yourself daily and follow a low-sodium diet-this means less than 2000 mg of sodium each day. Please ask your primary care physician to refer you to a dietitian to help you follow the appropriate diet for heart failure, diabetes, and chronic kidney disease as this type of diet can be very complicated. Please follow-up with your PCP within 1 week Please follow-up with computer science professor with [address] Locke/Elias's office should be contacting you with the time and date of this appointment. Please go to the [facility] lab on Monday or Monday next week and have your blood work drawn to check your kidney function. This blood test was ordered by Dr. Locke Call your Primary Care doctor if any of the following symptoms or problems start or get worse: * Shortness of breath or difficulty breathing * Wake up at night short of breath * Chest pain * Cough * Swelling of your hands, feet, or legs * More fatigued or tired with your normal activity * Palpitations - sudden fast heart beats WEIGHT * Weigh yourself every morning after using the bathroom. * Use the same scale. * Wear the same amount of clothing. * Write your weight down on a chart. * Call your Primary Care doctor if you gain more than 2-3 pounds in 1-2 days. MEDICATIONS * Use this discharge instruction sheet for medication instructions. * Take your medications at the time your doctor ordered. * Do not skip a dose of your medicines. * If you miss a dose of medicine, take it as soon as possible, but DO NOT DOUBLE A DOSE. * Read your medicine information when you get home. * Know all of the side effects of your medicine. If in doubt, ask your pharmacist * Call your Primary Care doctor's office if you have any side effects. * Be sure all of your doctors know what medicine and herbs you take (including cold, flu, and herbal medicine). Take the following with you to your follow-up doctor appointments: * Weight Chart * Medication List * List of questions Do not drink excessive alcohol, beer or wine. Current Hospital Diet Patient's current hospital diet: Low Sodium Diet (2gm Na) Discharge Diet Recommended Diet: Low Sodium Diet (2gm Na) Fluid Restriction: 1800 ml (7 cups) Procedures Procedures Performed: Chest x-ray Venous Doppler lower extremities Pending Studies Studies pending at discharge: no Laboratory Results Last 24 Hours Test 05/16/18 16:29 05/16/18 20:35 05/17/18 05:15 05/17/18 07:33 Bedside Glucose 125 mg/dl 154 mg/dl 126 mg/dl Sodium Level 134 mmol/L Potassium Level 3.7 mmol/L Chloride Level 98 mmol/L Carbon Dioxide Level 29 mmol/L Anion Gap 7.0 mmol/L Blood Urea Nitrogen 36 mg/dl Creatinine 1.79 mg/dl Est Creatinine Clear Calc Drug Dose 53.1 ml/min Estimated GFR () 43.2 Estimated GFR (Non- 37.3 BUN/Creatinine Ratio 20.2 Random Glucose 125 mg/dl Calcium Level 9.6 mg/dl Chemistry Specimen Hemolysis Test 05/17/18 11:26 Bedside Glucose 136 mg/dl Hemoglobin A1c Test 04/21/18 05:23 Range/Units Estimated Average Glucose 140 mg/dl Hemoglobin A1c 6.5 H 4.5-5.6 % Lipid Panel Test 05/14/18 04:57 Range/Units Triglycerides Level 211 H 0-150 mg/dl Cholesterol Level 152 0-200 mg/dl HDL Cholesterol 38 mg/dl Cholesterol/HDL Ratio 4.0 LDL Cholesterol, Calculated 72 mg/dl Medical Emergencies . Who to Call and When: Call 911 or go to the Emergency Room if: * If at any time you feel your situation is an emergency * You have tightness or pain in your chest that does not go away with rest or Nitroglycerin * You are very short of breath even with rest . Non-Emergent Contact Non-Emergency issues call your: Primary Care Provider, Outpatient Interviewing Clerk Call Non-Emergent contact if: temperature is above 101, you have any medication questions . . "Provider Documentation" section prepared by Deb Riddle. .
[2018-05-17 12:24] VITALS: BP 119/77; PULSE 67; TEMP 36.8; O2SAT 95
== END 2018-05-17 13:09 | disposition home or self-care (01) | DRG 291 ==
LOC: C.EDB 13:54 → C.MED 17:09 → ENRESERV 17:19
PROVIDERS: ADMIT Family Medicine; ATTEND Family Medicine
DX: I13.0 Hypertensive heart and chronic kidney disease with heart failure and stage 1 through stage 4 chronic kidney disease, or unspecified chronic kidney disease (principal); I50.33 Acute on chronic diastolic (congestive) heart failure; N17.9 Acute kidney failure, unspecified; F15.93 Other stimulant use, unspecified with withdrawal; S37.90XA Unspecified injury of unspecified urinary and pelvic organ, initial encounter; Z87.891 Personal history of nicotine dependence; I42.9 Cardiomyopathy, unspecified; Z79.82 Long term (current) use of aspirin; Z88.8 Allergy status to other drugs, medicaments and biological substances; N18.3 Chronic kidney disease, stage 3 (moderate); G47.33 Obstructive sleep apnea (adult) (pediatric); E87.6 Hypokalemia; R51 Headache; E11.22 Type 2 diabetes mellitus with diabetic chronic kidney disease; E78.5 Hyperlipidemia, unspecified; F32.9 Major depressive disorder, single episode, unspecified; R30.0 Dysuria; Y84.6 Urinary catheterization as the cause of abnormal reaction of the patient, or of later complication, without mention of misadventure at the time of the procedure

== ENCOUNTER 2019-03-04 10:19 | Inpatient (IN) ==
[2019-03-04 11:35] LABS: Basophils # (auto) 0.04 K/uL (0-0.2); Basophils % (auto) 0.5 %; Eosinophils # (auto) 0.45 K/uL (0-0.5); Eosinophils % (auto) 5.2 %; Hematocrit (blood only) 36.6 % (42-52); Hemoglobin 11.6 g/dL (14.0-18.0); Immature Granulocytes # (auto) 0.01 K/uL (0.00-0.02); Immature Granulocytes % (auto) 0.1 %; Lymphocytes # (auto) 2.69 K/uL (1.2-3.4); Mean Corpuscular Hgb Conc 31.7 g/dL (32-36); Mean Corpuscular Volume 89.1 fL (80-100); Mean Platelet Volume 10.3 fL (7.4-10.4); Monocytes # (auto) 0.98 K/uL (0.11-0.59); Monocytes % (auto) 11.3 %; Neutrophils % (auto) 51.9 %; Platelet Count 223 K/uL (130-400); RDW Coefficient of Variation 14.9 % (11.5-14.5); RDW Standard Deviation 48.7 fL (36.4-46.3); Red Blood Count 4.11 M/uL (4.7-6.1); White Blood Count 8.67 K/uL (4.8-10.8)
--- NOTE | 2019-03-04 11:41 | XRay Report ---
XR chest 1V portable CLINICAL HISTORY: short of breath dyspnea COMPARISON STUDY: 09/12/2018 FINDINGS: Mild cardiomegaly. Diaphragms are smooth. The lungs are clear. IMPRESSION: No acute process. Mild stable cardiomegaly. The above report was generated using voice recognition software. It may contain grammatical, syntax or spelling errors. Electronically signed by: Russell Tsai M.D. 03/04/2019 11:40 AM
[2019-03-04 11:56] LABS: Alanine Aminotransferase 21 U/L (12-78); Albumin Level 3.1 gm/dl (3.4-5.0); Aspartate Aminotransferase 16 U/L (15-37); Blood Urea Nitrogen 13 mg/dl (7-18); Calcium 9.2 mg/dl (8.5-10.1); Carbon Dioxide 28 mmol/L (21-32); Chloride 105 mmol/L (98-107); Est GFR (African American) 69.4; Est GFR (Non-African American) 59.9; Glucose 106 mg/dl (70-99); Potassium 4.1 mmol/L (3.5-5.1); Sodium 138 mmol/L (136-145)
[2019-03-04 11:59] LABS: Albumin Globulin Ratio 0.8 (0.9-2); Alkaline Phosphatase 97 U/L (45-117); Bilirubin,Total 0.3 mg/dl (0.2-1); Globulin 3.9 gm/dl (2.5-4.0); Troponin I < 0.015 ng/ml (0-0.045)
[2019-03-04] MEDS ORDERED: FUROSEMIDE 40 MG/4 ML VIAL IV STA (12:12)
[2019-03-04] MEDS ORDERED: LEVALBUTEROL HCL 1.25 MG/3 ML NEB NEB STA (12:12)
[2019-03-04 13:11] LABS: Partial Thromboplastin Ratio 0.8
--- NOTE | 2019-03-04 13:21 | History & Physical Report ---
Date of Service March 04, 2019 Assessment & Plan (1) Acute on chronic diastolic (congestive) heart failure: Patient with progressive SOB, weight gain, orthopnea and edema. States this is similar to prior exacerbations of CHF. Presently he is hemodynamically stable, adequate oxygenation on 2L NC, no respiratory distress. He states he eats canned soups and pre-prepared meals occasionally. Is compliant with medications. Failed outpatient diuretics -Admit to medical floor with telemetry -Lasix 60mg IV BID -Check BMP BID to monitor electrolytes and renal function -Daily weights -Strict intake and output measurements -Continue Toprol XL Present on Admission?: Yes (2) Hypertension: Blood pressure well controlled at present -Continue Toprol XL Present on Admission?: Yes (3) Depression: Chronic. Patient reports feeling more depressed since his ankle surgery and post-operative complications -Continue Prozac daily Present on Admission?: Yes (4) CKD (chronic kidney disease), stage III: Stable. Adequate UOP -Continue to monitor BMP BID for renal function and electrolytes -Avoid nephrotoxic agents Present on Admission?: Yes (5) Obstructive lung disease: Stable. Chronic -Continue to monitor -Albuterol PRN (6) GERD (gastroesophageal reflux disease): Chronic. Stable -Continue Omeprazole Present on Admission?: Yes (7) Hyperlipidemia: Chronic. Stable -Continue Atorvastatin Present on Admission?: Yes (8) Sleep apnea: Chronic. Patient reports he hasn't been using his CPAP at night since he has been sleeping in the recliner -CPAP qHS F/E/N - Diuresis with Lasix 60mg IV BID, strict I/O and daily weights, BMP BID with electrolyte repletion, Heart healthy/Low Na diet as tolerated Ppx - Heparin Code - Full Dispo - Admit to Med-tele History of Present Illness Chief Complaint: SOB Primary Care Provider: Pepe Blakely MD Mr. Frank is a pleasant 73yo C male with multiple medical problems to include history of chronic diastolic CHF, RAMAN on CPAP, CAD, HLP presenting with 2 weeks of progressive SOB, dyspnea with minimal exertion in the home and a 20# weight gain over the last month. Patient also reports worsening orthopnea requiring him to sleep upright in a recliner chair and worsening bilateral LE edema with abdominal fullness. He had a brief episode of CP yesterday dull, 3/10 lasting minutes then resolving. Patient was placed on increased dose of diuretic last week, states he was taking three tablets of Torsemide twice daily (120mg po BID) as well as Metolazone. He was instructed to discontinue this regimen due to worsening renal function. He was seen by Cardiology today and was instructed to come to the ER for IV diuretic. On arrival to the ER he was afebrile, hemodynamically stable, adequate saturation on nasal cannula 2L. Had mild hypoxia 87% on room air. ER Course: Lasix 40mg IV, Xopenex neb Allergies Allergy/AdvReac Type Severity Reaction Status Date / Time Iodinated Contrast- Oral and AdvReac Mild GI UPSET Verified 02/06/19 10:00 IV Dye Home Medications Home Medications Medication Instructions Recorded Confirmed Type aspirin 81 mg PO QPM 11/20/18 02/06/19 History atorvastatin 20 mg PO QPM 11/20/18 02/06/19 History ferrous gluconate 324 mg PO BID 11/20/18 02/06/19 History fluoxetine [Prozac] 20 mg PO QPM 11/20/18 02/06/19 History fluoxetine [Prozac] 40 mg PO QAM 11/20/18 02/06/19 History metolazone 2.5 mg PO WK PRN 11/20/18 02/06/19 History metoprolol succinate [Toprol XL] 50 mg PO QPM 11/20/18 02/06/19 History metoprolol succinate [Toprol XL] 75 mg PO QAM 11/20/18 02/06/19 History omeprazole 20 mg PO DAILY 11/20/18 02/06/19 History potassium chloride 40 meq PO BID 11/20/18 02/06/19 History acetaminophen [Tylenol Extra 1,000 mg PO Q8 PRN #60 tab 11/29/18 02/06/19 Rx Strength] oxycodone 5 - 10 mg PO Q6 PRN #30 cap 11/29/18 02/06/19 Rx torsemide 20 mg tablet 40 mg PO BID tab 01/23/19 02/06/19 History Past Med/Surg History Social History Preferred Language: Mexican Communication Ability: Effective Visual Impairment: No Limitations Beliefs That Will Affect Care: None Current Living Situation: Spouse Feels Safe at Home: Yes Smoking Status: Former smoker Tobacco Type: cigarettes Cigarettes Per Day: HX OF 1-2 PPD X 10 YEARS, QUIT IN 1974 Second Hand Exposure: No Hx Alcohol Use: No Hx Substance Use: No Review of Systems Review of Systems: All systems reviewed & are unremarkable except as noted in HPI & below Physical Exam Physical Exam: General: patient resting comfortably, NAD, non-toxic in appearance, AA&O x 4 Skin: warm, dry, intact, no rashes or lesions HEENT: NC/AT, PERRL, EOMI, anicteric sclera, conjunctiva without injection, external ear normal to inspection and nontender, nares patent, moist mucus membranes, dentition intact, no oropharyngeal lesions, neck supple, trachea midline, no LAD, no thyromegaly, no JVD Heart: +S1/S2, regular with occasional ectopy, no m/r/g Lungs: equal air entry bilaterally, crackles in bilateral bases, no rhonchi/wheezes Abd: +BS, soft, NT/ND, no masses/organomegaly/ascites Ext: warm, 2+ pulses in UE/LE bilaterally, no clubbing/cyanosis, 2+ pitting edema to ankles bilaterally, small wound on right medial ankle with eschar, no evidence of ongoing infection Neuro: nonfocal, patient AA&O x 4, speech intact, no facial droop, moving all extremities on command with equal strength 5/5 Results & Data Vital Signs (Past 12 Hours) Vital Signs Temp Pulse Pulse Resp BP Pulse Ox 03/04/19 12:22 74 18 99 03/04/19 12:10 87 L 03/04/19 12:00 74 19 134/78 96 03/04/19 11:30 80 20 132/70 94 03/04/19 11:02 94 03/04/19 10:59 82 24 94 03/04/19 10:23 36.6 C 87 20 168/76 H 94 Laboratory Results Lab Results 03/04/19 03/04/19 03/04/19 Range/Units 11:25 11:25 11:25 WBC 8.67 (4.8-10.8) K/uL RBC 4.11 L (4.7-6.1) M/uL Hgb 11.6 L (14.0-18.0) g/dL Hct 36.6 L (42-52) % MCV 89.1 (80-100) fL MCH 28.2 (25-34) pg MCHC 31.7 L (32-36) g/dL RDW Std Deviation 48.7 H (36.4-46.3) fL RDW Coeff of Kartik 14.9 H (11.5-14.5) % Plt Count 223 (130-400) K/uL MPV 10.3 (7.4-10.4) fL Immature Gran % (Auto) 0.1 % Neut % (Auto) 51.9 % Lymph % (Auto) 31.0 % Humphreys % (Auto) 11.3 % Eos % (Auto) 5.2 % Baso % (Auto) 0.5 % Immature Gran # (Auto) 0.01 (0.00-0.02) K/uL Neut # (Auto) 4.50 (1.4-6.5) K/uL Lymph # (Auto) 2.69 (1.2-3.4) K/uL Humphreys # (Auto) 0.98 H (0.11-0.59) K/uL Eos # (Auto) 0.45 (0-0.5) K/uL Baso # (Auto) 0.04 (0-0.2) K/uL PT Cancelled INR Cancelled APTT Cancelled PTT Ratio Cancelled Sodium 138 (136-145) mmol/L Potassium 4.1 (3.5-5.1) mmol/L Chloride 105 (98-107) mmol/L Carbon Dioxide 28 (21-32) mmol/L Anion Gap 5.0 (3-11) BUN 13 (7-18) mg/dl Creatinine 1.21 (0.6-1.4) mg/dl Est Cr Clr Drug Dosing Not Reportable Est GFR ( Amer) 69.4 Est GFR (Non-Af Amer) 59.9 BUN/Creatinine Ratio 11.0 (10-20) Glucose 106 H (70-99) mg/dl Calcium 9.2 (8.5-10.1) mg/dl Total Bilirubin 0.3 (0.2-1) mg/dl AST 16 (15-37) U/L ALT 21 (12-78) U/L Alkaline Phosphatase 97 (45-117) U/L Troponin I < 0.015 (0-0.045) ng/ml NT-Pro-B Natriuret Pep (0-900) pg/ml Total Protein 7.0 (6.4-8.2) gm/dl Albumin 3.1 L (3.4-5.0) gm/dl Globulin 3.9 (2.5-4.0) gm/dl Albumin/Globulin Ratio 0.8 L (0.9-2) 03/04/19 Range/Units 11:25 WBC (4.8-10.8) K/uL RBC (4.7-6.1) M/uL Hgb (14.0-18.0) g/dL Hct (42-52) % MCV (80-100) fL MCH (25-34) pg MCHC (32-36) g/dL RDW Std Deviation (36.4-46.3) fL RDW Coeff of Kartik (11.5-14.5) % Plt Count (130-400) K/uL MPV (7.4-10.4) fL Immature Gran % (Auto) % Neut % (Auto) % Lymph % (Auto) % Humphreys % (Auto) % Eos % (Auto) % Baso % (Auto) % Immature Gran # (Auto) (0.00-0.02) K/uL Neut # (Auto) (1.4-6.5) K/uL Lymph # (Auto) (1.2-3.4) K/uL Humphreys # (Auto) (0.11-0.59) K/uL Eos # (Auto) (0-0.5) K/uL Baso # (Auto) (0-0.2) K/uL PT INR APTT PTT Ratio Sodium (136-145) mmol/L Potassium (3.5-5.1) mmol/L Chloride (98-107) mmol/L Carbon Dioxide (21-32) mmol/L Anion Gap (3-11) BUN (7-18) mg/dl Creatinine (0.6-1.4) mg/dl Est Cr Clr Drug Dosing Est GFR ( Amer) Est GFR (Non-Af Amer) BUN/Creatinine Ratio (10-20) Glucose (70-99) mg/dl Calcium (8.5-10.1) mg/dl Total Bilirubin (0.2-1) mg/dl AST (15-37) U/L ALT (12-78) U/L Alkaline Phosphatase (45-117) U/L Troponin I (0-0.045) ng/ml NT-Pro-B Natriuret Pep 83 (0-900) pg/ml Total Protein (6.4-8.2) gm/dl Albumin (3.4-5.0) gm/dl Globulin (2.5-4.0) gm/dl Albumin/Globulin Ratio (0.9-2) Diagnostic Findings XR chest 1V portable CLINICAL HISTORY: short of breath dyspnea COMPARISON STUDY: 09/12/2018 FINDINGS: Mild cardiomegaly. Diaphragms are smooth. The lungs are clear. IMPRESSION: No acute process. Mild stable cardiomegaly. The above report was generated using voice recognition software. It may contain grammatical, syntax or spelling errors. Electronically signed by: Russell Tsai M.D. 03/04/2019 11:40 AM Dictated: 03/04/19 1139 Transcribed: 03/04/19 1139 ECG Additional Comments: The study shows sinus rhythm at 83bpm with PACs, RBBB, XX=334, NVG=520, MFu=158, no acute ischemic changes Code Status & VTE Plan Code Status FULL VTE Prophylaxis Plan VTE Prophylaxis will be ordered: Yes (1) Depression Depression Type: major depressive disorder Major depression recurrence: recurrent Active/Remission status: currently active Major depression episode severity: unspecified Qualified Code(s): F33.9 - Major depressive disorder, recurrent, unspecified (2) Obstructive lung disease COPD type: emphysema Emphysema type: unspecified Qualified Code(s): J43.9 - Emphysema, unspecified (3) GERD (gastroesophageal reflux disease) Esophagitis presence: esophagitis presence not specified Qualified Code(s): K21.9 - Gastro-esophageal reflux disease without esophagitis (4) Hypertension Hypertension type: essential hypertension Qualified Code(s): I10 - Essential (primary) hypertension (5) Hyperlipidemia Hyperlipidemia type: unspecified Qualified Code(s): E78.5 - Hyperlipidemia, unspecified (6) Sleep apnea Sleep apnea type: unspecified type Qualified Code(s): G47.30 - Sleep apnea, unspecified
[2019-03-04] MEDS ORDERED: DOCUSATE SODIUM 100 MG CAP PO PRN (14:13)
[2019-03-04] MEDS ORDERED: ACETAMINOPHEN 500 MG TAB PO PRN (14:13)
[2019-03-04] MEDS ORDERED: ALBUTEROL 0.5% NEB SOLN 2.5 MG/0.5 ML VIAL NEB PRN (14:13)
[2019-03-04 14:58] LABS: BUN Creatinine Ratio 10.7 (10-20); Calcium 9.4 mg/dl (8.5-10.1); Creatinine Clr Calc Pharmacy 78.9 ml/min; Est GFR (African American) 68.7; Est GFR (Non-African American) 59.3; Magnesium 2.1 mg/dl (1.8-2.4); Phosphorus 2.8 mg/dl (2.5-4.9); Potassium 3.8 mmol/L (3.5-5.1)
--- NOTE | 2019-03-04 16:05 | Cardiology Progress Note ---
Date of Service March 04, 2019 Assessment & Plan (1) Acute on chronic diastolic (congestive) heart failure: Patient presenting today feeling "awful" with significant volume overload on exam. Up 18 lbs Likely multifactorial with non compliance with diuretics, diet. IV diuretics to be initiated once again emphasized need for compliance with CPAP and sodium restriction (2) Obesity hypoventilation syndrome: (3) CKD (chronic kidney disease), stage III: Subjective 03/04/2019 Cardiology : Chief Complaint: CHF exacerbation with Dyspnea, abdominal bloating; weight gain SUBJECTIVE: Jose Elias Frank is a 73 year old male here today for close cardio logy f/u. Primary chief orthoptist is Dr. Griffin. Last clinic evaluation approx 6 weeks ago with the undersigned. History includes: 1. Chronic class III diastolic congestive heart failure in the setting of preserved ejection fraction chronic hypertensive heart disease 2.Normal coronaries by cardiac catheterization in 2005 with repeat recently at [facility] in May of 2018, with mild nonobstructive coronary atherosclerosis. 3.Obstructive sleep apnea on BiPAP supplement 4.Chronic obesity. 5.Labile hypertension. Patient was evaluated last week with complaints of increased lower extremity edema, orthopnea, shortness of breath and abdominal bloating. Symptoms improved with titration of diuretics and addition of metolazone. He reported significant weakness and nausea with metolazone. So he declined to use weekly as directed. He presents today feeling poorly. He is up 18 lbs since last visit with worsening LE edema to hips, abdominal bloating, orthopnea and significant SOB with minimal activity. Has not been able to sleep in bed for 3 weeks due to SOB. Oxygen saturation stable. Notes wheezing and cough intermittently. No fever or chills. No chest pain. He did not take metolazone as advised previously. He admits to non compliance with afternoon doses of diuretics approx 2-3 times per week. He admits to dietary indiscretion. He is concerned with adjustments to diuretics due to his CKD. 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 Review of Systems: See HPI for pertinent positives. All other 10 point review of systems is negative. Patient Active Problem List Diagnosis Code Restrictive cardiomyopathy (HCC) I42.5 Sleep apnea G47.30 HTN, goal below 140/90 I10 DYSLIPIDEMIA, GOAL TO BE DETERMINED E78.5 Chest pain R07.9 Symptomatic PVCs I49.3 RAMAN (obstructive sleep apnea) G47.33 Past Surgical History: Procedure Laterality Date ARTHROPLASTY KNEE TOTAL Left 2010 ARTHROPLASTY KNEE TOTAL Right 2015 REMOVE GALLBLADDER REPAIR INITIAL INGUINAL HERNIA REDUCIBLE AGE 5 OR MORE B/L, performed 3X SHOULDER ARTHROSCOPY SURGERY Family History Problem Relation Age of Onset Cancer Father unknown Genitourinary Disorder Father ? prostate problems Social History Tobacco Use Smoking status: Former Smoker Packs/day: 2.00 Years: 10.00 Pack years: 20.00 Last attempt to quit: 04/19/1975 Years since quittin.9 Smokeless tobacco: Former User Types: Chew Quit date: 10/16/1974 Tobacco comment: quit chewing 1987 Substance Use Topics Alcohol use: No Comment: Heavy EtOH prior to 1987 Drug use: No Review of patient's allergies indicates: Allergen Reactions Iodine Nausea/vomiting Tape [Adhesive Tape] Skin tears Current Outpatient Medications Medication Sig Dispense Refill torsemide (DEMADEX) 20 MG Tablet Take 2 Tabs by mouth 2 times a day. LORAzepam (ATIVAN) 0.5 MG Tablet metoprolol succinate XL (TOPROL XL) 50 MG TB24 Take 1 1/2 In the morning, 1 in the evening 90 Tab 5 spironolactone (ALDACTONE) 25 MG Tablet One tablet by mouth two times per day 60 Tab 5 Potassium Chloride Jackelin ER 20 MEQ TBCR Take 40 mEq by mouth 2 times a day. Indications: Take daily at times 60 Tab 5 atorvaSTATin (LIPITOR) 20 MG Tablet Take 20 mg by mouth daily. 1 FLUOXETINE HCL 20 MG PO CAPS 40 mg in AM, 20 mg in PM 30 Cap 5 ASPIRIN EC 81 MG PO TBEC 1 TABLET DAILY OMEPRAZOLE 20 MG PO CPDR once daily metolazone (ZAROXOLYN) 2.5 MG Tablet Take as directed once weekly and as directed 20 Tab 5 Ferrous Gluconate 324 (38 Fe) MG Tablet Take 1 Tab by mouth 2 times a day. 1 OBJECTIVE/PHYSICAL EXAMINATION: BP 132/74 | Pulse 78 | Resp 24 | Wt 304 lbs (137.893kg) | BMI 43.62 kg/m | BSA 2.61 m Wt Readings from Last 3 Encounters: 03/04/19 (!) 137.9 kg (304 lb) 01/23/19 129.7 kg (286 lb) 01/17/19 131 kg (288 lb 12.8 oz) Data: 2D echocardiogram report reviewed dated April 2018: The examination is adequate to evaluate the referral indication. There was normal sinus rhythm with occasional PVC's during the examination. The left ventricular cavity size is normal. The LV wall thickness is moderately increased (concentric). The left ventricular wall motion is normal. The qualitative LV ejection fraction is 6569% (normal). The left atrium is moderately enlarged. The left ventricular diastolic function is mildly abnormal (grade I). Mild aortic valve sclerosis is present. Compared to prior study of 01/10/2106, there is no significant change. Physical Exam Physical Exam: General: no acute distress and stated age Head: normocephalic, no masses, lesions, tenderness or abnormalities Eyes: conjunctiva are pink and non-injected, sclera clear Throat: clear Nares: without discharge Neck: supple, no adenopathy, no bruits, normal jugular venous pulse, no hepatojugular reflux, no carotid bruits Chest: Barrel-shaped and normal respiratory effort Lungs:decreased breath sounds b/l with faint wheezing and rales. Cardiac Exam: - regular rate & rhythm, no murmurs gallops or rubs - normal S-1, normal S-2 no audible ectopy Pulses: 2(+) throughout Abdomen: Obese distended, firm abdomen Musculoskeletal: no gait disturbance, no joint inflammation, no deforming arthritis Extremities: 2+ b/l LE edema Neuro: grossly normal exam Results & Data Vital Signs (Past 12 Hours) Vital Signs Temp Pulse Pulse Resp BP BP Pulse Ox 03/04/19 15:08 36.7 C 82 18 126/70 95 03/04/19 13:50 36.8 C 80 18 141/90 H 93 03/04/19 13:28 84 21 114/72 99 03/04/19 13:01 84 21 114/72 99 03/04/19 12:30 77 21 135/76 98 03/04/19 12:22 74 18 99 03/04/19 12:10 87 L 03/04/19 12:00 74 19 134/78 96 03/04/19 11:30 80 20 132/70 94 03/04/19 11:02 94 03/04/19 10:59 82 24 94 03/04/19 10:23 36.6 C 87 20 168/76 H 94
[2019-03-04] MEDS: FUROSEMIDE 60 MG in SYRINGE 0 ML IV SCH (16:34)
[2019-03-04] MEDS: HEPARIN SOD 5,000 UNIT/0.5 ML VIAL SQ SCH ×2 (16:35→22:01)
--- NOTE | 2019-03-04 18:58 | Emergency Department Note ---
Entered by Elizabeth Oneal acting as a scribe for Dimas Chanel MD History of Present Illness General Chief complaint: Shortness of Breath/Dyspnea Stated complaint: sob Time Seen by Provider: 03/04/19 12:00 Source: patient History of Present Illness Provider complaint: Shortness of breath Onset (ago): week(s) 3 Location: chest Pain Consistency: + constant Exacerbated By: + other (laying flat) Associated symptoms: + cough and + other (gained twenty pounds ) The patient is a 73 year old male who presents to the ED with complaints of constant shortness of breath beginning several weeks ago. The patient stated that he has been unable to lay down flat during this time. The patient states he has gained 20lbs during this time frame as well. He notes he is not on oxygen at home but does take Lasix. He notes he has not taken his medication today. He notes that he was referred to the emergency department by Dr. Griffin's school age program associate where he was seen earlier today. The patient complains of a cough for several weeks as well, that cough syrup did not improve. Home Medications Home Medications Medication Instructions Recorded Confirmed Type aspirin 81 mg PO QPM 11/20/18 03/04/19 History atorvastatin 20 mg PO QPM 11/20/18 03/04/19 History ferrous gluconate 324 mg PO BID 11/20/18 03/04/19 History fluoxetine [Prozac] 20 mg PO QPM 11/20/18 03/04/19 History fluoxetine [Prozac] 40 mg PO QAM 11/20/18 03/04/19 History metolazone 2.5 mg PO WK PRN 11/20/18 03/04/19 History metoprolol succinate [Toprol XL] 50 mg PO QPM 11/20/18 03/04/19 History metoprolol succinate [Toprol XL] 75 mg PO QAM 11/20/18 03/04/19 History omeprazole 20 mg PO DAILY 11/20/18 03/04/19 History potassium chloride 40 meq PO BID 11/20/18 03/04/19 History acetaminophen [Tylenol Extra 1,000 mg PO Q8 PRN #60 tab 11/29/18 03/04/19 Rx Strength] torsemide 20 mg tablet 40 mg PO BID tab 01/23/19 03/04/19 History tramadol 50 mg PO DAILY PRN 03/04/19 03/04/19 History Allergies Allergy/AdvReac Type Severity Reaction Status Date / Time Iodinated Contrast- Oral and AdvReac Mild GI UPSET Verified 03/04/19 13:31 IV Dye Past Med/Surg History Medical History Chronic diastolic heart failure, NYHA class 3 Per cardio 11/08, Diuretic use recently decreased and patient experienced worsening SOB and abdominal fullness. Resume prior doing of Torsemide. Pt euvolemic at PAT (unable to assess RLE due to bandaging) Difficult intubation "Elective" glidescope noted on 08/2018 [facility] record, but based on body habitus/physical exam, patient is difficult intubation regardless. GERD (gastroesophageal reflux disease) H/O deep venous thrombosis 5+ yrs ago Hyperlipidemia Labile hypertension Nonobstructive atherosclerosis of coronary artery Obesity Pulmonary emphysema Restrictive cardiomyopathy Preserved EF. Sleep apnea BiPAP HS Surgical History History of arthroscopy RIGHT SHOULDER History of cardiac cath [facility] 2017. Nonobstructive CAD. 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 and A total of 10 systems reviewed and were otherwise negative Physical Exam Vital Signs Vital Signs - 24 hr 03/04/19 10:23 03/04/19 10:59 03/04/19 11:02 Temperature 36.6 C Temperature Source Oral Sepsis Recent Fever Within 48 Hours No Sepsis New/Unexplained Change in Mental Status No Sepsis Action Taken by Nursing No Action Required Pulse Rate 87 82 Pulse Rate [Right Radial] Pulse Rate from SpO2 Sensor Pulse Rhythm Regular Regular Pulse Strength Normal Respiratory Rate 20 24 Respiratory Effort / Characteristics Non-Labored Spontaneous Respiratory Depth Normal Respiratory Pattern Regular Blood Pressure 168/76 H Blood Pressure Mean 106 Blood Pressure Position Sitting Pulse Oximetry 94 94 94 Oxygen Delivery Method Room Air Room Air Room Air Oxygen Flow Rate 03/04/19 11:30 03/04/19 12:00 03/04/19 12:10 Temperature Temperature Source Sepsis Recent Fever Within 48 Hours Sepsis New/Unexplained Change in Mental Status Sepsis Action Taken by Nursing Pulse Rate 80 74 Pulse Rate [Right Radial] Pulse Rate from SpO2 Sensor 77 71 Pulse Rhythm Pulse Strength Respiratory Rate 20 19 Respiratory Effort / Characteristics Respiratory Depth Respiratory Pattern Blood Pressure 132/70 134/78 Blood Pressure Mean 90 96 Blood Pressure Position Pulse Oximetry 94 96 87 L Oxygen Delivery Method Room Air Room Air Room Air Oxygen Flow Rate 03/04/19 12:22 03/04/19 12:30 Temperature Temperature Source Sepsis Recent Fever Within 48 Hours Sepsis New/Unexplained Change in Mental Status Sepsis Action Taken by Nursing Pulse Rate 77 Pulse Rate [Right Radial] 74 Pulse Rate from SpO2 Sensor 76 Pulse Rhythm Pulse Strength Respiratory Rate 18 21 Respiratory Effort / Characteristics Non-Labored Spontaneous Respiratory Depth Respiratory Pattern Blood Pressure 135/76 Blood Pressure Mean 95 Blood Pressure Position Pulse Oximetry 99 98 Oxygen Delivery Method Nasal Cannula Nasal Cannula Oxygen Flow Rate 2 2 GENERAL: Awake, alert, well-appearing, in no acute distress HENT: Normocephalic, atraumatic. Oropharynx unremarkable. EYES: Normal conjunctiva. Sclera non-icteric. NECK: Supple. No nuchal rigidity. FROM. No JVD. RESPIRATORY: Clear to auscultation. Distant breath sounds. CARDIAC: Regular rate, normal rhythm. Extremities warm and well perfused. Pulses equal. ABDOMEN: Soft, non-distended. No tenderness to palpation. No rebound or guarding. No masses. RECTAL: Deferred. MUSCULOSKELETAL: Chest examination reveals no tenderness. The back is symmetrical on inspection without obvious abnormality. There is no CVA tenderness to palpation. No joint edema. LOWER EXTREMITIES: Calves are equal size bilaterally and non-tender. 2+ pitting edema on bilateral legs. No discoloration. NEURO: Normal sensorium. No sensory or motor deficits noted. SKIN: No rash or jaundice noted. Course 1207: The patient was evaluated in room C9. A complete history and physical exam was performed. I discussed today's test results and the treatment plan with him. He verbally agrees and understands. 1216: I discussed the patient's case with Dr. Juanita GASTELUM Hospitalist. She will evaluate the patient for further management. Consultations Consultation #1: I discussed the patient's case with Dr. Juanita GASTELUM Hospitalist. She will evaluate the patient for further management. Time: 12:16 Administered Medications Heparin Sodium (Porcine) (Heparin Sodium (Porcine)) 5,000 units SQ Q8 MORE Stop: 04/03/19 14:29 Last Admin: 03/04/19 16:35 Dose: 5,000 units Documented by: [id number] Cosigned by: [id number] Furosemide 60 mg/ Syringe 6 mls @ 4 mls/min IV [id number] MORE Stop: 04/03/19 16:59 Last Admin: 03/04/19 16:34 Dose: 4 mls/min Documented by: [id number] Discontinued Medications Furosemide (Lasix) 40 mg IV NOW STA Stop: 03/04/19 12:13 Last Admin: 03/04/19 12:49 Dose: 40 mg Documented by: [id number] Levalbuterol HCl (Xopenex 1.25mg/3ml Neb) 1.25 mg NEB NOW STA Stop: 03/04/19 12:13 Last Admin: 03/04/19 12:22 Dose: 1.25 mg Documented by: [id number] Medical Decision Making Differential Diagnosis Differential diagnosis: Etiologies such as infections, reactive airway disease, COPD, pneumonia, pleural effusion, pulmonary edema, ARDS, pneumothorax, CHF, cardiac ischemia, cardiac tamponade, dysrhythmia, anemia, pulmonary embolism, musculoskeletal, gastrointestinal process, as well as others were entertained. Medical Records Attestation: I reviewed the patient's medical records. Home Medications Current Medication List: was personally reviewed by me Laboratory Data Attestation: I reviewed the patient's lab results. Result diagrams: 03/04/19 11:25 03/04/19 14:24 Lab Results 03/04/19 03/04/19 03/04/19 Range/Units 11:25 11:25 11:25 WBC 8.67 (4.8-10.8) K/uL RBC 4.11 L (4.7-6.1) M/uL Hgb 11.6 L (14.0-18.0) g/dL Hct 36.6 L (42-52) % MCV 89.1 (80-100) fL MCH 28.2 (25-34) pg MCHC 31.7 L (32-36) g/dL RDW Std Deviation 48.7 H (36.4-46.3) fL RDW Coeff of Kartik 14.9 H (11.5-14.5) % Plt Count 223 (130-400) K/uL MPV 10.3 (7.4-10.4) fL Immature Gran % (Auto) 0.1 % Neut % (Auto) 51.9 % Lymph % (Auto) 31.0 % [place] % (Auto) 11.3 % Eos % (Auto) 5.2 % Baso % (Auto) 0.5 % Immature Gran # (Auto) 0.01 (0.00-0.02) K/uL Neut # (Auto) 4.50 (1.4-6.5) K/uL Lymph # (Auto) 2.69 (1.2-3.4) K/uL [place] # (Auto) 0.98 H (0.11-0.59) K/uL Eos # (Auto) 0.45 (0-0.5) K/uL Baso # (Auto) 0.04 (0-0.2) K/uL PT Cancelled INR Cancelled APTT Cancelled PTT Ratio Cancelled Sodium 138 (136-145) mmol/L Potassium 4.1 (3.5-5.1) mmol/L Chloride 105 (98-107) mmol/L Carbon Dioxide 28 (21-32) mmol/L Anion Gap 5.0 (3-11) BUN 13 (7-18) mg/dl Creatinine 1.21 (0.6-1.4) mg/dl Est Cr Clr Drug Dosing Not Reportable Est GFR ( Amer) 69.4 Est GFR (Non-Af Amer) 59.9 BUN/Creatinine Ratio 11.0 (10-20) Glucose 106 H (70-99) mg/dl Calcium 9.2 (8.5-10.1) mg/dl Total Bilirubin 0.3 (0.2-1) mg/dl AST 16 (15-37) U/L ALT 21 (12-78) U/L Alkaline Phosphatase 97 (45-117) U/L Troponin I < 0.015 (0-0.045) ng/ml NT-Pro-B Natriuret Pep (0-900) pg/ml Total Protein 7.0 (6.4-8.2) gm/dl Albumin 3.1 L (3.4-5.0) gm/dl Globulin 3.9 (2.5-4.0) gm/dl Albumin/Globulin Ratio 0.8 L (0.9-2) 03/04/19 03/04/19 Range/Units 11:25 12:50 WBC (4.8-10.8) K/uL RBC (4.7-6.1) M/uL Hgb (14.0-18.0) g/dL Hct (42-52) % MCV (80-100) fL MCH (25-34) pg MCHC (32-36) g/dL RDW Std Deviation (36.4-46.3) fL RDW Coeff of Kartik (11.5-14.5) % Plt Count (130-400) K/uL MPV (7.4-10.4) fL Immature Gran % (Auto) % Neut % (Auto) % Lymph % (Auto) % [place] % (Auto) % Eos % (Auto) % Baso % (Auto) % Immature Gran # (Auto) (0.00-0.02) K/uL Neut # (Auto) (1.4-6.5) K/uL Lymph # (Auto) (1.2-3.4) K/uL [place] # (Auto) (0.11-0.59) K/uL Eos # (Auto) (0-0.5) K/uL Baso # (Auto) (0-0.2) K/uL PT 10.0 INR 1.0 APTT 23.0 PTT Ratio 0.8 Sodium (136-145) mmol/L Potassium (3.5-5.1) mmol/L Chloride (98-107) mmol/L Carbon Dioxide (21-32) mmol/L Anion Gap (3-11) BUN (7-18) mg/dl Creatinine (0.6-1.4) mg/dl Est Cr Clr Drug Dosing Est GFR ( Amer) Est GFR (Non-Af Amer) BUN/Creatinine Ratio (10-20) Glucose (70-99) mg/dl Calcium (8.5-10.1) mg/dl Total Bilirubin (0.2-1) mg/dl AST (15-37) U/L ALT (12-78) U/L Alkaline Phosphatase (45-117) U/L Troponin I (0-0.045) ng/ml NT-Pro-B Natriuret Pep 83 (0-900) pg/ml Total Protein (6.4-8.2) gm/dl Albumin (3.4-5.0) gm/dl Globulin (2.5-4.0) gm/dl Albumin/Globulin Ratio (0.9-2) Imaging Data Radiologist's Impression: Radiology results as stated below per my review and the radiologist's interpretation: XR chest 1V portable CLINICAL HISTORY: short of breath dyspnea COMPARISON STUDY: 09/12/2018 FINDINGS: Mild cardiomegaly. Diaphragms are smooth. The lungs are clear. IMPRESSION: No acute process. Mild stable cardiomegaly. The above report was generated using voice recognition software. It may contain grammatical, syntax or spelling errors. Electronically signed by: Russell Tsai M.D. 03/04/2019 11:40 AM ECG Data Attestation: I personally reviewed and interpreted this ECG as follows: Indication: SOB/dyspnea Rate (beats per minute): 83 Rhythm: normal sinus Findings: no ST depression and no ST elevation Comparison ECG Date: from (09/12/18) Change: the following changes noted (Bigeminy is new) Additional Comments: Normal EKG, bigeminy is new from previous EKG on 09/12/18. Blood Pressure Blood Pressure Findings: Elevated blood pressure Blood Pressure Disposition: further management by hospitalist [facility] Narrative This is a 73-year-old male who presents emergency department hypoxic. Patient is requiring oxygen here in the emergency department. He was started on oxygen. He does appear to be volume overloaded therefore he was placed on Lasix. He was also given breathing treatments here in the emergency department. I did dis cuss the case with the hospitalist service who agreed to admit the patient because the patient is continuing to require oxygen. He has a normal CK-MB troponin as well as EKG. Impression & Plan Hypoxia Discharge Plan Visit Data *Final* Discharge Date/Time: 03/04/19 13:28 Chief Complaint: Shortness of Breath/Dyspnea Stated Complaint: sob ED Provider: Dimas Chanel Discharge Problem: Hypoxia Patient Disposition: Being Evaluated by Hospitalist Discharge Instructions Interventions: ED Discharge Assessment Last Done: 03/04/19 13:28 The scribe's documentation has been prepared under my direction and personally reviewed by me in its entirety. I confirm that the note above accurately reflects all work, treatment, procedures, and medical decision making performed by me.
[2019-03-04] MEDS: FLUOXETINE HCL 20 MG CAP PO SCH (21:01)
[2019-03-04] MEDS: ASPIRIN 81 MG ECTAB PO SCH (21:01)
[2019-03-04] MEDS: ATORVASTATIN 20 MG TAB PO SCH (21:02)
[2019-03-04] MEDS: FERROUS GLUCONATE 324 MG TAB PO SCH (21:02)
[2019-03-04] MEDS: METOPROLOL SUCC 50MG EXT REL TAB PO SCH (21:02)
[2019-03-05 02:40] LABS: BUN Creatinine Ratio 10.1 (10-20); Calcium 9.1 mg/dl (8.5-10.1); Creatinine Clr Calc Pharmacy 65.9 ml/min; Est GFR (African American) 55.3; Est GFR (Non-African American) 47.7; Potassium 3.5 mmol/L (3.5-5.1)
[2019-03-05] MEDS: HEPARIN SOD 5,000 UNIT/0.5 ML VIAL SQ SCH ×3 (06:23→20:53)
[2019-03-05] MEDS: FUROSEMIDE 60 MG in SYRINGE 0 ML IV SCH ×3 (08:50→20:51)
[2019-03-05] MEDS: FERROUS GLUCONATE 324 MG TAB PO SCH ×2 (08:51→20:52)
[2019-03-05] MEDS: METOPROLOL SUCC 25MG EXT REL TAB PO SCH (08:51)
[2019-03-05] MEDS: PANTOprazole 40 MG TAB PO SCH (08:52)
[2019-03-05] MEDS: FLUOXETINE HCL 20 MG CAP PO SCH ×2 (08:52→20:52)
[2019-03-05] MEDS ORDERED: TRAMADOL HCL 50 MG TABLET PO PRN (09:32)
[2019-03-05] MEDS ORDERED: POTASSIUM CHLORIDE 20 MEQ TABCR PO ONE (10:00)
--- NOTE | 2019-03-05 13:54 | Cardiology Progress Note ---
Date of Service March 05, 2019 Assessment & Plan (1) Acute on chronic diastolic (congestive) heart failure: Patient presenting today feeling "awful" with significant volume overload on exam. Up 18 lbs Patient feels improved since admission though no significant change in weight. Will increase furosemide dosing IV if no response add metolazone. (2) Obesity hypoventilation syndrome: Patient should resume CPAP/BiPAP. May use own unit if available (3) CKD (chronic kidney disease), stage III: Will follow daily as diuresis progresses Subjective Patient was seen and examined, chart medications reviewed. Feels he has diuresed overnight the weights and I's and O's do not reflect significant decline. Notes no chest pains or worsening shortness of breath did not use CPAP last night notes no unexplained fevers or infections. Notes no bleeding difficulties no some mild hematochezia is attempting to restrict sodium but notes only fair compliance at home Review of Systems Review of Systems: As per HPI Physical Exam Constitutional: WD/WN, vitals as above Eyes: PERRL, conjunctivae normal, anicteric sclerae ENMT: external ear and nose normal, oropharynx normal Neck: trachea midline, no thyromegaly Thick Respiratory: Auscultation: + diminished lung sounds (But clear) Cardiovascular: Rate/Rhythm: regular rate and regular rhythm Heart Sounds: normal S1 and normal S2 Vessels: no JVD Extremities: + edema (1-2+) Gastrointestinal (Abdomen): normal bowel sounds, soft, nontender, no hepatosplenomegaly Musculoskeletal: no cyanosis or clubbing, extremities motor strength 5/5 Results & Data Vital Signs (Past 12 Hours) Vital Signs Temp Pulse Pulse Resp BP Pulse Ox 03/05/19 11:44 36.8 C 74 18 121/86 95 03/05/19 08:00 36.5 C 78 18 133/82 95 03/05/19 03:54 70 03/05/19 03:32 37 C 78 20 106/71 95
[2019-03-05 14:50] LABS: BUN Creatinine Ratio 10.4 (10-20); Calcium 9.9 mg/dl (8.5-10.1); Creatinine Clr Calc Pharmacy 68.2 ml/min; Est GFR (African American) 57.7; Est GFR (Non-African American) 49.8; Potassium 4.1 mmol/L (3.5-5.1)
--- NOTE | 2019-03-05 18:09 | Hospitalist Progress Note ---
Date of Service March 05, 2019 Assessment & Plan (1) Acute on chronic diastolic (congestive) heart failure: Patient with progressive SOB, weight gain, orthopnea and edema. States this is similar to prior exacerbations of CHF. Continues to be hemodynamically stable, with adequate oxygenation on 2L NC, no respiratory distress. He states he eats canned soups and pre-prepared meals occasionally. Is compliant with medications. Failed outpatient diuretics Was on torsemide 40 mg p.o. twice daily prior to admission with increased to 60 mg twice daily shortly prior for admission -So far with some clinical improvement but too early to tell if having adequate diuresis -Cardiology increased Lasix to 60 mg IV 3 times daily Appreciate cardiology consultation -Continue to check BMP to monitor electrolytes and renal function-creatinine with slight increased today to 1.4 but fairly stable from previous -Daily weights -Strict intake and output measurements, low-sodium diet (2) Hypertension: Blood pressure well controlled -Continue Toprol XL 75 mg in the morning and 50 mill grams in the evening (3) Depression: Chronic. Patient reports feeling more depressed since his ankle surgery and post-operative complications -Continue Prozac 60 mg daily in divided doses (4) CKD (chronic kidney disease), stage III: Baseline creatinine around 1.3 with slight increased today to 1.4 with diuresis -Continue to monitor BMP in the midst of diuresis -Avoid nephrotoxic agents -Renally dose medications as appropriate (5) Obstructive lung disease: Stable. Chronic -Continue to monitor -Albuterol PRN (6) GERD (gastroesophageal reflux disease): Chronic. Stable -Continue PPI (7) Hyperlipidemia: Chronic. Stable -Continue Atorvastatin (8) Sleep apnea: Chronic. Patient reports he hasn't been using his CPAP at night since he has been sleeping in the recliner -CPAP qHS (9) Hypoxia: Presented with acute hypoxic respiratory failure with pulse ox 87% on room air, secondary to acute on chronic diastolic CHF -Now weaned off oxygen with IV diuresis -Continue supplemental O2 as needed to keep pulse ox greater than 90% Continue diuresis (10) Type 2 diabetes mellitus: Last hemoglobin A1c was in the prediabetes range at 6.2% in 08/2018 although it was higher previously He is not on any medications for this at home -No need for Accu-Cheks at this time -Check hemoglobin A1c in the morning (11) DVT prophylaxis: Heparin SQ Disposition-remain on medical floor with telemetry Needs continued diuresis Subjective Feeling a little better than yesterday, less SOB but persists with ambulation. Legs still swollen, R>L since his right ankle surgery 3 months ago. Had some chest pain yesterday but none today. Tele with NSR, rates 70s, PACs Review of Systems Review of Systems: All systems reviewed & are unremarkable except as noted in HPI & below Physical Exam Constitutional: WD/WN, vitals as above + morbidly obese Eyes: PERRL, conjunctivae normal, anicteric sclerae ENMT: external ear and nose normal, oropharynx normal Neck: trachea midline, no thyromegaly Respiratory: Auscultation: + diminished lung sounds (throughout) and + crackles (at right base); no wheezes Cardiovascular: Rate/Rhythm: regular rate and regular rhythm Extremities: + edema (1-2+ edema right foot and ankle, 1+ pitting edema right leg, trace left) Gastrointestinal (Abdomen): normal bowel sounds, soft, nontender, no hepatosp lenomegaly (obese) Musculoskeletal: Extremities: + extremities abnormal to inspection (right ankle effusion, foot edema 1-2+, decreased ROM, medial malleolus scab), no cyanosis and no clubbing Skin: + rash (right ant leg with few pinpoint scabs of excoriation,very mild erythema) Neurologic: moves all extremities and awake; no focal motor deficits Psychiatric: A+Ox3, euthymic affect Results & Data Vital Signs (Past 12 Hours) Vital Signs Temp Pulse Resp BP Pulse Ox Pulse Ox 03/05/19 15:44 36.6 C 68 18 142/81 H 96 03/05/19 14:27 94 03/05/19 11:44 36.8 C 74 18 121/86 95 03/05/19 08:00 36.5 C 78 18 133/82 95 (1) Sleep apnea Sleep apnea type: unspecified type Qualified Code(s): G47.30 - Sleep apnea, unspecified (2) Depression Active/Remission status: currently active Depression Type: major depressive disorder Major depression episode severity: unspecified Major depression recurrence: recurrent Qualified Code(s): F33.9 - Major depressive disorder, recurrent, unspecified (3) Hyperlipidemia Hyperlipidemia type: unspecified Qualified Code(s): E78.5 - Hyperlipidemia, unspecified (4) Obstructive lung disease COPD type: emphysema Emphysema type: unspecified Qualified Code(s): J43.9 - Emphysema, unspecified (5) GERD (gastroesophageal reflux disease) Esophagitis presence: esophagitis presence not specified Qualified Code(s): K21.9 - Gastro-esophageal reflux disease without esophagitis (6) Hypertension Hypertension type: essential hypertension Qualified Code(s): I10 - Essential (primary) hypertension
[2019-03-05] MEDS: ATORVASTATIN 20 MG TAB PO SCH (20:52)
[2019-03-05] MEDS: ASPIRIN 81 MG ECTAB PO SCH (20:52)
[2019-03-05] MEDS: METOPROLOL SUCC 50MG EXT REL TAB PO SCH (20:53)
[2019-03-06] MEDS: HEPARIN SOD 5,000 UNIT/0.5 ML VIAL SQ SCH ×3 (05:55→20:52)
[2019-03-06] MEDS: FUROSEMIDE 60 MG in SYRINGE 0 ML IV SCH ×3 (08:03→20:51)
[2019-03-06] MEDS: METOPROLOL SUCC 25MG EXT REL TAB PO SCH (08:03)
[2019-03-06] MEDS: FERROUS GLUCONATE 324 MG TAB PO SCH ×2 (08:04→20:50)
[2019-03-06] MEDS: FLUOXETINE HCL 20 MG CAP PO SCH ×2 (08:05→20:52)
[2019-03-06] MEDS: PANTOprazole 40 MG TAB PO SCH (08:05)
[2019-03-06 08:48] LABS: BUN Creatinine Ratio 10.7 (10-20); Creatinine Clr Calc Pharmacy 61.6 ml/min; Est GFR (African American) 51.8; Est GFR (Non-African American) 44.7; Magnesium 2.2 mg/dl (1.8-2.4); Potassium 4.3 mmol/L (3.5-5.1)
[2019-03-06 08:49] LABS: Estimated Average Glucose 131 mg/dl; Hemoglobin A1C 6.2 % (4.5-5.6)
--- NOTE | 2019-03-06 12:49 | Cardiology Progress Note ---
Date of Service March 06, 2019 Assessment & Plan (1) Acute on chronic diastolic (congestive) heart failure: Patient presenting today feeling "awful" with significant volume overload on exam. Up 18 lbs Patient tolerating diuresis with weight loss stable renal function. We will continue IV diuretics and follow renal function. Not using spironolactone/eplerenone due to past labile renal function and hyperkalemia (2) Obesity hypoventilation syndrome: Patient should resume CPAP/BiPAP. May use own unit if available (3) CKD (chronic kidney disease), stage III: Will follow daily as diuresis progresses Subjective Patient looks better this morning no acute complaints. Has manifested significant weight loss but not reflected in documented urine output. Denies an y chest pains worsening shortness of breath or tachypalpitations. No dizziness or lightness headedness. Did not use CPAP last night although available. Uses BiPAP chronically at home Physical Exam Constitutional: WD/WN, vitals as above Eyes: PERRL, conjunctivae normal, anicteric sclerae ENMT: external ear and nose normal, oropharynx normal Neck: trachea midline, no thyromegaly Respiratory: Auscultation: + diminished lung sounds (But clear) Cardiovascular: Rate/Rhythm: regular rate and regular rhythm Heart Sounds: normal S1 and normal S2 Vessels: no JVD Extremities: + edema (1-2+) Gastrointestinal (Abdomen): normal bowel sounds, soft, nontender, no hepatosplenomegaly Musculoskeletal: no cyanosis or clubbing, extremities motor strength 5/5 Results & Data Vital Signs (Past 12 Hours) Vital Signs Temp Pulse Pulse Resp BP Pulse Ox 03/06/19 11:15 36.9 C 80 16 119/72 94 03/06/19 06:00 36.4 C L 69 20 148/68 H 96 03/06/19 03:50 77 03/06/19 03:10 36.9 C 70 18 125/83 95
[2019-03-06] MEDS ORDERED: GUAIFENESIN/CODEINE 100MG/10MG 5ML UDC PO PRN (17:39)
[2019-03-06] MEDS ORDERED: GUAIFENESIN/CODEINE 100MG/10MG 5ML UDC PO STA (17:39)
--- NOTE | 2019-03-06 17:46 | Hospitalist Progress Note ---
Date of Service March 06, 2019 Assessment & Plan (1) Acute on chronic diastolic (congestive) heart failure: Patient with progressive SOB, weight gain, orthopnea and edema prior to admission. States this is similar to prior exacerbations of CHF. Continues to be hemodynamically stable, with adequate oxygenation now on RA, no respiratory distress. He states he eats canned soups and pre-prepared meals occasionally. Is compliant with medications. Failed outpatient diuretics Was on torsemide 40 mg p.o. twice daily prior to admission with increased to 60 mg twice daily shortly prior for admission -clinically improved and has lost 3.5 kg of body weight despite I/Os only showing net negative of 895mL Creatinine slight increase today to 1.54 from 1.41 -continue diuresis with Lasix to 60 mg IV 3 times daily Appreciate cardiology consultation -follow BMP to monitor electrolytes and renal function -Daily weights -Strict intake and output measurements, low-sodium diet (2) Hypertension: Blood pressure well controlled -Continue Toprol XL 75 mg in the morning and 50mg in the evening (3) Depression: Chronic. Patient reports feeling more depressed since his ankle surgery and post-operative complications -Continue Prozac 60 mg daily in divided doses (4) CKD (chronic kidney disease), stage III: Baseline creatinine around 1.3 with slight increase again today to 1.5 with diuresis -Continue to monitor BMP in the midst of diuresis -Avoid nephrotoxic agents -Renally dose medications as appropriate (5) Obstructive lung disease: with COPD, remote history of smoking With persistent dry cough today which may be related to CHF vs bronchospasm Does have occasional wheeze on exam -albuterol nebs prn -add guaifenesin with codeine (6) GERD (gastroesophageal reflux disease): Chronic. Stable -Continue PPI (7) Hyperlipidemia: Chronic. Stable -Continue Atorvastatin (8) Sleep apnea: -CPAP qHS (9) Hypoxia: Presented with acute hypoxic respiratory failure with pulse ox 87% on room air, secondary to acute on chronic diastolic CHF -Now weaned off oxygen with IV diuresis -Continue supplemental O2 as needed to keep pulse ox greater than 90% Continue diuresis (10) Type 2 diabetes mellitus: Last hemoglobin A1c was in the prediabetes range at 6.2% in 08/2018 although it was higher previously He is not on any medications for this at home -No need for Accu-Cheks at this time hemoglobin A1c here is again 6.2% (11) DVT prophylaxis: Heparin SQ Disposition-remain on medical floor with telemetry Needs continued diuresis Subjective Pt's only complaint is a bad dry cough that started yesterday. he has had this in the past and has used guaifenesin w/ codeine. Legs less swollen. No chest pain. Is making a lot of urine he thinks. Tele with NSR, rates 60-70s Review of Systems Review of Systems: All systems reviewed & are unremarkable except as noted in HPI & below Physical Exam Constitutional: WD/WN, vitals as above + morbidly obese Eyes: PERRL, conjunctivae normal, anicteric sclerae Neck: trachea midline, no thyromegaly Respiratory: + cough (dry, constant) Auscultation: + diminished lung sounds (throughout) and + wheezes (one exp wheeze right middle lung field); no crackles Cardiovascular: Rate/Rhythm: regular rate and regular rhythm Extremities: + edema (1-2+ edema right foot and ankle, 1+ pitting edema right leg, trace left) Gastrointestinal (Abdomen): normal bowel sounds, soft, nontender, no hepat osplenomegaly (obese) Musculoskeletal: Extremities: + extremities abnormal to inspection (right ankle effusion, foot edema 1-2+, decreased ROM, medial malleolus scab), no cyanosis and no clubbing Skin: + rash (right ant leg with few pinpoint scabs of excoriation,no erythema now) Neurologic: moves all extremities and awake; no focal motor deficits Psychiatric: A+Ox3, euthymic affect Results & Data Vital Signs (Past 12 Hours) Vital Signs Temp Pulse Pulse Resp BP Pulse Ox 03/06/19 16:00 77 03/06/19 15:08 36.6 C 20 126/79 95 03/06/19 11:15 36.9 C 80 16 119/72 94 03/06/19 06:00 36.4 C L 69 20 148/68 H 96 Laboratory Results 03/06/19 03/06/19 Range/Units 08:06 08:06 Sodium 137 (136-145) mmol/L Potassium 4.3 (3.5-5.1) mmol/L Chloride 103 (98-107) mmol/L Carbon Dioxide 27 (21-32) mmol/L Anion Gap 7.0 (3-11) BUN 17 (7-18) mg/dl Creatinine 1.54 H (0.6-1.4) mg/dl Est Cr Clr Drug Dosing 61.6 ml/min Est GFR ( Amer) 51.8 Est GFR (Non-Af Amer) 44.7 BUN/Creatinine Ratio 10.7 (10-20) Glucose 160 H (70-99) mg/dl Estimat Average Glucose 131 mg/dl Hemoglobin A1c 6.2 H (4.5-5.6) % Calcium 10.0 (8.5-10.1) mg/dl Magnesium 2.2 (1.8-2.4) mg/dl (1) Hypertension Hypertension type: essential hypertension Qualified Code(s): I10 - Essential (primary) hypertension (2) Depression Depression Type: major depressive disorder Major depression recurrence: recurrent Active/Remission status: currently active Major depression episode severity: unspecified Qualified Code(s): F33.9 - Major depressive disorder, recurrent, unspecified (3) Obstructive lung disease COPD type: emphysema Emphysema type: unspecified Qualified Code(s): J43.9 - Emphysema, unspecified (4) GERD (gastroesophageal reflux disease) Esophagitis presence: esophagitis presence not specified Qualified Code(s): K21.9 - Gastro-esophageal reflux disease without esophagitis (5) Hyperlipidemia Hyperlipidemia type: unspecified Qualified Code(s): E78.5 - Hyperlipidemia, unspecified (6) Sleep apnea Sleep apnea type: unspecified type Qualified Code(s): G47.30 - Sleep apnea, unspecified
[2019-03-06] MEDS: ASPIRIN 81 MG ECTAB PO SCH (20:50)
[2019-03-06] MEDS: ATORVASTATIN 20 MG TAB PO SCH (20:51)
[2019-03-06] MEDS: METOPROLOL SUCC 50MG EXT REL TAB PO SCH (20:51)
[2019-03-07] MEDS: HEPARIN SOD 5,000 UNIT/0.5 ML VIAL SQ SCH ×2 (06:23→14:06)
[2019-03-07 07:48] LABS: BUN Creatinine Ratio 13.4 (10-20); Calcium 9.4 mg/dl (8.5-10.1); Creatinine Clr Calc Pharmacy 65.7 ml/min; Est GFR (African American) 56.2; Est GFR (Non-African American) 48.5; Potassium 3.6 mmol/L (3.5-5.1)
[2019-03-07] MEDS: METOPROLOL SUCC 25MG EXT REL TAB PO SCH (08:52)
[2019-03-07] MEDS: FERROUS GLUCONATE 324 MG TAB PO SCH (08:52)
[2019-03-07] MEDS: PANTOprazole 40 MG TAB PO SCH (08:52)
[2019-03-07] MEDS: FLUOXETINE HCL 20 MG CAP PO SCH (08:52)
--- NOTE | 2019-03-07 12:10 | Cardiology Progress Note ---
Date of Service March 07, 2019 Assessment & Plan (1) Acute on chronic diastolic (congestive) heart failure: Patient presenting today feeling "awful" with significant volume overload on exam. Up 18 lbs Patient tolerating diuresis with weight loss stable renal function. We will continue IV diuretics and follow renal function. Not using spironolactone/eplerenone due to past labile renal function and hyperkalemia (2) Obesity hypoventilation syndrome: Patient should resume CPAP/BiPAP. May use own unit if available (3) CKD (chronic kidney disease), stage III: Will follow daily as diuresis progresses Physical Exam Constitutional: WD/WN, vitals as above Eyes: PERRL, conjunctivae normal, anicteric sclerae ENMT: external ear and nose normal, oropharynx normal Neck: trachea midline, no thyromegaly Respiratory: Auscultation: + diminished lung sounds (But clear) Cardiovascular: Rate/Rhythm: regular rate and regular rhythm Heart Sounds: normal S1 and normal S2 Vessels: no JVD Extremities: + edema (1-2+) Gastrointestinal (Abdomen): normal bowel sounds, soft, nontender, no hepatosplenomegaly Musculoskeletal: no cyanosis or clubbing, extremities motor strength 5/5 Results & Data Vital Signs (Past 12 Hours) Vital Signs Temp Pulse Pulse Resp BP Pulse Ox 03/07/19 11:04 36.9 C 68 16 118/79 95 03/07/19 07:29 67 03/07/19 07:05 36.7 C 68 18 128/77 95 03/07/19 03:06 36.6 C 74 18 129/78 94 03/07/19 00:17 76
--- NOTE | 2019-03-07 12:17 | Cardiology Progress Note ---
Date of Service March 07, 2019 Assessment & Plan (1) Acute on chronic diastolic (congestive) heart failure: Patient presenting today feeling "awful" with significant volume overload on exam. Up 18 lbs Patient tolerating diuresis with weight loss stable renal function. Patient anxious to be discharged home Will supplement potassium today recommend transitioning diuretics from IV to oral. Torsemide 60 mg a.m. 40 mg p.m. Will need BMP next week as well as close clinical follow-up to be arranged at [facility] cardiology CHF instructions once again outlined including sodium and fluid restriction mandatory need for ongoing CPAP usage, daily weights (2) Obesity hypoventilation syndrome: Patient should resume home BiPAP on discharge (3) CKD (chronic kidney disease), stage III: Stable IV diuretics to be switched to oral today Subjective Patient seen and examined, chart medications telemetry reviewed. Feels improved since hospitalization. Has manifested significant diuresis less leg edema and shortness of breath. Was able to use CPAP part of the night last night. Notes no leg cramping chest pains tachypalpitations syncope or near syncope. Telemetry without arrhythmia. No fevers chills unexplained infections no problems taking medications Review of Systems Review of Systems: As per HPI Physical Exam Constitutional: WD/WN, vitals as above Eyes: PERRL, conjunctivae normal, anicteric sclerae ENMT: external ear and nose normal, oropharynx normal Neck: trachea midline, no thyromegaly Respiratory: Auscultation: + diminished lung sounds (But clear) Cardiovascular: Rate/Rhythm: regular rate and regular rhythm Heart Sounds: normal S1 and normal S2 Vessels: no JVD Extremities: no edema Gastrointestinal (Abdomen): normal bowel sounds, soft, nontender, no hepatosplenomegaly Less abdominal distention Musculoskeletal: no cyanosis or clubbing, extremities motor strength 5/5 Results & Data Vital Signs (Past 12 Hours) Vital Signs Temp Pulse Pulse Resp BP Pulse Ox 03/07/19 11:04 36.9 C 68 16 118/79 95 03/07/19 07:29 67 03/07/19 07:05 36.7 C 68 18 128/77 95 03/07/19 03:06 36.6 C 74 18 129/78 94 03/07/19 00:17 76 Laboratory Results Laboratory Results - last 24 hr 03/07/19 06:39 Sodium 136 Potassium 3.6 D Chloride 102 Carbon Dioxide 30 Anion Gap 4.0 BUN 19 H Creatinine 1.44 H Est Cr Clr Drug Dosing 65.7 Est GFR ( Amer) 56.2 Est GFR (Non-Af Amer) 48.5 BUN/Creatinine Ratio 13.4 Glucose 132 H Calcium 9.4
[2019-03-07] MEDS: FUROSEMIDE 60 MG in SYRINGE 0 ML IV SCH (12:23)
--- NOTE | 2019-03-07 16:35 | Discharge Summary ---
Date of Service March 07, 2019 Admission HPI Per Admitting Provider Mr. Frank is a pleasant 73yo C male with multiple medical problems to include history of chronic diastolic CHF, RAMAN on CPAP, CAD, HLP presenting with 2 weeks of progressive SOB, dyspnea with minimal exertion in the home and a 20# weight gain over the last month. Patient also reports worsening orthopnea requiring him to sleep upright in a recliner chair and worsening bilateral LE edema with abdominal fullness. He had a brief episode of CP yesterday dull, 3/10 lasting minutes then resolving. Patient was placed on increased dose of diuretic last week, states he was taking three tablets of Torsemide twice daily (120mg po BID) as well as Metolazone. He was instructed to discontinue this regimen due to worsening renal function. He was seen by Cardiology today and was instructed to come to the ER for IV diuretic. On arrival to the ER he was afebrile, hemodynamically stable, adequate saturation on nasal cannula 2L. Had mild hypoxia 87% on room air. ER Course: Lasix 40mg IV, Xopenex neb Principal Diagnosis Acute on chronic diastolic CHF Discharge Exam Constitutional WD/WN, vitals as above + morbidly obese Eyes PERRL, conjunctivae normal, anicteric sclerae Neck trachea midline, no thyromegaly Respiratory no cough Auscultation: no crackles and no wheezes Cardiovascular Rate/Rhythm: regular rate and regular rhythm Extremities: + edema (Trace + edema bilateral distal legs right greater than left) Gastrointestinal (Abdomen) normal bowel sounds, soft, nontender, no hepatosplenomegaly (obese) Musculoskeletal Extremities: + extremities abnormal to inspection (right ankle effusion, foot edema 1-2+, decreased ROM, medial malleolus scab), no cyanosis and no clubbing Skin + rash (right ant leg with few pinpoint scabs of excoriation,no erythema now) Neurologic moves all extremities and awake; no focal motor deficits Psychiatric A+Ox3, euthymic affect Discharge Data Allergies Allergy/AdvReac Type Severity Reaction Status Date / Time Iodinated Contrast- Oral and AdvReac Mild GI UPSET Verified 03/04/19 13:31 IV Dye Consultations Cardiology Procedures Performed Chest x-ray Hospital Course (1) Acute on chronic diastolic (congestive) heart failure: Patient with progressive SOB, weight gain, orthopnea and edema prior to admission. States this is similar to prior exacerbations of CHF. Continues to be hemodynamically stable, with adequate oxygenation now on RA, no respiratory distress. He states he eats canned soups and pre-prepared meals occasionally, eats lunch meat daily. He was not weighing himself consistently at home either. Is compliant with medications. Failed outpatient diuretics Was on torsemide 40 mg p.o. twice daily prior to admission with increased to 60 mg twice daily shortly prior for admission He was admitted and treated with IV Lasix 60 mg 3 times daily -clinically improved and has lost 4 kg of body weight since admission, peripheral edema is significantly down Creatinine around baseline at 1.44 on the day of discharge Appreciate cardiology consultation-cardiology recommends home oral diuretics of torsemide 60 MG in the morning and 40 mg in the evening -follow BMP in 1 week after discharge -Daily weights encouraged at home -Encouraged low-sodium diet at home and elimination of lunch meats, soups, and other high sodium foods (2) Hypertension: Blood pressure well controlled -Continue Toprol XL 75 mg in the morning and 50mg in the evening (3) Depression: Chronic. Patient reports feeling more depressed since his ankle surgery and post-operative complications -Continue Prozac 60 mg daily in divided doses (4) CKD (chronic kidney disease), stage III: Baseline creatinine around 1.3 with slight increase in creatinine with IV diuresis-creatinine was 1.44 on the day of discharge -Follow BMP in 1 week -Avoid nephrotoxic agents -Renally dose medications as appropriate (5) Obstructive lung disease: with COPD, remote history of smoking With persistent dry cough here which may be related to CHF vs bronchospasm Improved with cough syrup -We will prescribe albuterol inhaler to use as needed at home -Can use cough syrup as needed at home (6) GERD (gastroesophageal reflux disease): Chronic. Stable -Continue PPI (7) Hyperlipidemia: Chronic. Stable -Continue Atorvastatin (8) Sleep apnea: -CPAP qHS (9) Hypoxia: Presented with acute hypoxic respiratory failure with pulse ox 87% on room air, secondary to acute on chronic diastolic CHF -Now weaned off oxygen with IV diuresis (10) Type 2 diabetes mellitus: Last hemoglobin A1c was in the prediabetes range at 6.2% in 08/2018 although it was higher previously He is not on any medications for this at home -No need for Accu-Cheks at this time hemoglobin A1c here is again 6.2% (11) DVT prophylaxis: Heparin SQ was provided Disposition-stable for discharge to home Total Time Total Time Spent Total Time Spent (In Minutes): Greater than 30 minutes Total Time Includes: Examination of the Patient, Discharge Planning and Me dication Reconciliation Discharge Plan Discharge Items Patient Disposition: Home - Self-Care Reason For Visit: CHF, SOB Discharge Diagnosis: Acute on chronic diastolic CHF Condition: Good Discharge Goals: Diagnostic testing, Improve disease control, Learn about illness and Therapeutic intervention Activity: Resume your previous activity Lifting: Gradually increase as tolerated Bathing: No limitations Exercise/Sports: Gradually increase as tolerated Driving/Machine Use: No limitations Non-emergency contact: Primary Care Provider and [employer] Call non-emergency contact if: you have any medication questions and your symptoms worsen Follow-up/Referrals: Pepe Blakely MD [Primary Care Provider] - 03/12/19 1:30 pm (Please, follow up with Dr. Shania Castro on MondayMarch 12 at 1:30 pm. *If you need to change this appointment, call the office at [phone].) Jose L Griffin MD [Family Provider] - (Please, follow up at [facility] Cardiology Office. *A nurse from this office will call you with the appointment information. If you have any questions, call the office at [phone].) Diet: Low Sodium (2gm) Fluids: 1800ml (7 cups) Other Ambulatory Orders: Basic Metabolic Panel (Routine) Timeframe: 1 Week Location: Determined by Patient Ordered By: Deb Riddle [facility] Provider Instructions: You were admitted with excessive fluid due to congestive heart failure. You were given IV Lasix to remove some of the excess fluid. Please increase your torsemide to 60 mg in the morning and 40 mg in the evening. Please have blood work checked in 1 week-a prescription will be provided to you. The results of this blood work will be sent to Dr. Griffin's office. Please follow-up with cardiology within 1 week and with your primary care ph ysician as scheduled for you. Call your Primary Care doctor if any of the following symptoms or problems start or get worse: * Shortness of breath or difficulty breathing * Wake up at night short of breath * Chest pain * Cough * Swelling of your hands, feet, or legs * More fatigued or tired with your normal activity * Palpitations - sudden fast heart beats WEIGHT * Weigh yourself every morning after using the bathroom. * Use the same scale. * Wear the same amount of clothing. * Write your weight down on a chart. * Call your Primary Care doctor if you gain more than 2-3 pounds in 1-2 days. MEDICATIONS * Use this discharge instruction sheet for medication instructions. * Take your medications at the time your doctor ordered. * Do not skip a dose of your medicines. * If you miss a dose of medicine, take it as soon as possible, but DO NOT DOUBLE A DOSE. * Read your medicine information when you get home. * Know all of the side effects of your medicine. If in doubt, ask your pharmacist * Call your Primary Care doctor's office if you have any side effects. * Be sure all of your doctors know what medicine and herbs you take (including cold, flu, and herbal medicine). Take the following with you to your follow-up doctor appointments: * Weight Chart * Medication List * List of questions Do not drink excessive alcohol, beer or wine. Prescriptions: New albuterol sulfate 90 mcg/actuation HFA aerosol inhaler 2 puffs INH Q4H PRN (Reason: shortness of breath or cough) Qty: 18 RF: 0 Continued fluoxetine [Prozac] 40 mg capsule 20 mg PO QPM RF: 0 fluoxetine [Prozac] 40 mg capsule 40 mg PO QAM RF: 0 metolazone 2.5 mg tablet 2.5 mg PO WK PRN (Reason: Fluid Retention) RF: 0 atorvastatin 20 mg tablet 20 mg PO QPM RF: 0 metoprolol succinate [Toprol XL] 50 mg tablet extended release 24 hr 50 mg PO QPM RF: 0 metoprolol succinate [Toprol XL] 50 mg tablet extended release 24 hr 75 mg PO QAM RF: 0 aspirin 81 mg Tablet,Delayed Release (Dr/Ec) 81 mg PO QPM RF: 0 omeprazole 20 mg capsule,delayed release(DR/EC) 20 mg PO DAILY RF: 0 ferrous gluconate 324 mg (37.5 mg iron) Tablet 324 mg PO BID RF: 0 potassium chloride 20 mEq Tablet Extended Release 40 meq PO BID RF: 0 tramadol 50 mg tablet 50 mg PO DAILY PRN (Reason: Pain) RF: 0 acetaminophen [Tylenol Extra Strength] 500 mg tablet 1,000 mg PO Q8 PRN (Reason: pain) Qty: 60 RF: 0 Changed torsemide [Demadex] 20 mg tablet 60 mg PO QAM 30 Days Qty: 150 RF: 0 Stand-Alone Forms: [employer] [facility]/Other Patient Handouts: Prediabetes, Diabetes Meal Planning Discharge Orders: Discharge Order (Routine); Ordered 03/07/19 Ordered By: Deb Riddle Admission Data Admit Date/Time: 03/04/19 12:56 Attending Provider: Deb Riddle Admit Provider: Joyce Restrepo Primary Care Provider: Pepe Blakely Other Providers: Joyce Restrepo ; Jose L Griffin Service: Medical Other Pending Studies at Discharge: No
== END 2019-03-07 17:53 | disposition home or self-care (01) | DRG 291 ==
LOC: ED 10:19 → SUATTDRO 12:56 → 2N 12:56 → 2W 23:39

== ENCOUNTER 2019-08-08 16:42 | Inpatient (IN) ==
[2019-08-08 17:29] LABS: Basophils # (auto) 0.03 K/uL (0-0.2); Basophils % (auto) 0.3 %; Eosinophils # (auto) 0.39 K/uL (0-0.5); Eosinophils % (auto) 3.8 %; Hemoglobin 12.3 g/dL (14.0-18.0); Immature Granulocytes # (auto) 0.03 K/uL (0.00-0.02); Immature Granulocytes % (auto) 0.3 %; Lymphocytes # (auto) 2.89 K/uL (1.2-3.4); Lymphocytes % (auto) 28.1 %; Mean Corpuscular Hemoglobin 27.1 pg (25-34); Mean Corpuscular Hgb Conc 30.8 g/dL (32-36); Mean Corpuscular Volume 88.1 fL (80-100); Mean Platelet Volume 10.2 fL (7.4-10.4); Monocytes # (auto) 1.06 K/uL (0.11-0.59); Monocytes % (auto) 10.3 %; Neutrophils # (auto) 5.89 K/uL (1.4-6.5); Neutrophils % (auto) 57.2 %; Platelet Count 314 K/uL (130-400); RDW Coefficient of Variation 15.1 % (11.5-14.5); RDW Standard Deviation 48.3 fL (36.4-46.3); Red Blood Count 4.54 M/uL (4.7-6.1); White Blood Count 10.29 K/uL (4.8-10.8)
--- NOTE | 2019-08-08 17:29 | XRay Report ---
XR chest 1V portable CLINICAL HISTORY: 74 years-old Male presenting with Dyspnea. TECHNIQUE: Portable upright AP view of the chest was obtained. COMPARISON: 03/04/2019. FINDINGS: Atherosclerosis of the aortic arch. Cardiac silhouette enlarged. Mild pulmonary vascular prominence a s on prior exam. No focal opacity. No large effusion or pneumothorax. Degenerative changes of the tho racic spine. Upper abdomen normal. IMPRESSION: 1. Cardiomegaly with mild volume overload as on prior exam. No other convincing evidence of acute ca rdiopulmonary disease. Electronically signed by: Antonio Ha M.D. 08/08/2019 5:28 PM
[2019-08-08 18:12] LABS: Alanine Aminotransferase 17 U/L (12-78); Albumin Globulin Ratio 0.7 (0.9-2); Albumin Level 3.4 gm/dl (3.4-5.0); Alkaline Phosphatase 105 U/L (45-117); BUN Creatinine Ratio 12.5 (10-20); Bilirubin,Total 0.3 mg/dl (0.2-1); Blood Urea Nitrogen 20 mg/dl (7-18); Calcium 9.6 mg/dl (8.5-10.1); Carbon Dioxide 27 mmol/L (21-32); Chloride 103 mmol/L (98-107); Creatinine Clr Calc Pharmacy 53.8 ml/min; Est GFR (African American) 48.8; Est GFR (Non-African American) 42.1; Globulin 4.6 gm/dl (2.5-4.0); Glucose 123 mg/dl (70-99); Sodium 137 mmol/L (136-145); Troponin I < 0.015 ng/ml (0-0.045)
[2019-08-08] MEDS ORDERED: FUROSEMIDE 80 MG in SYRINGE 0 ML IV ONE (18:16)
--- NOTE | 2019-08-08 20:20 | History & Physical Report ---
Date of Service August 08, 2019 Assessment & Plan (1) CHF exacerbation: Admit to PCU on telemetry Vital signs every 4 hours Strict in and out Daily weight TTE Plan initial electrolytes magnesium and potassium BNP pending, PT, PTT INR Fasting lipid panel in a.m., repeat A1c Started Bumex drip since patient at home on large doses of torsemide which apparently did not help. Consider consulting cardiology Dr. Domingo or his group at [facility].. DVT prophylaxis heparin 5000 units twice daily subacute Continue home medicine: Metoprolol 50 mg p.o. every afternoon, metoprolol 75 mg p.o. every morning, potassium chloride 40 mg p.o. every afternoon, Spironolactone 50 mg p.o. twice daily, aspirin 81 mg p.o. q. p.m. Full code Present on Admission?: Yes (2) Volume overload: As above Present on Admission?: Yes (3) Hypertension: As above, continue home medicine. Monitor blood pressure every 4 hours Present on Admission?: Yes (4) CKD (chronic kidney disease), stage III: Avoid nephrotoxic agents. Patient has chronic kidney insufficiency CKD stage III which is worsening. Omeprazole on hold due to possible side effects and nephrotoxicity. If patient still needed consider famotidine 20 mg p.o. daily. Present on Admission?: Yes (5) Depression: Stable , continue fluoxetine 40 mg p.o. every morning Present on Admission?: Yes (6) Obstructive sleep apnea: Patient is allowed to use his CPAP from home. Use CPAP every night Present on Admission?: Yes (7) Type 2 diabetes mellitus: Diet controlled. Will check A1c in a.m. Present on Admission?: Yes (8) Hyperlipidemia: Lipid panel pending. Continue atorvastatin 20 mg p.o. every afternoon. Present on Admission?: Yes (9) Obstructive lung disease: Mild pulmonary edema. Continue Breo Ellipta 1 inhalation daily, albuterol sulfate 2 puffs every 4 hours as needed. Present on Admission?: Yes History of Present Illness Chief Complaint: Shortness of breath Primary Care Provider: Pepe Blakely MD Patient is a 73 years old male with past medical history of chronic diastolic CHF, obstructive sleep apnea on CPAP, coronary artery disease, hyperlipidemia, presents with dyspnea on exertion, and progressive shortness of breath and weight gain for the past 2 months. Patient said that congestive heart failure has been ongoing for several years and he sees Dr. Domingo who is his zmt operator. Patient reports having edema of the lower extremities up to his groin. Patient also reports worsening orthopnea and need to sleep upright in a recliner chair. Patient reports taking his medication as prescribed specifically torsemide 160 mg p.o. daily but he still says that he cannot get all the fluid out. Last time patient was seen by cardiology was in February 2019 and instructed him to continue diuretics and have supplemental potassium. Patient denies fever, chills, chest pain, abdominal pain, frequency, urgency, hematuria, dysuria, melena, syncope, near syncope. Labs are reviewed: Sodium 137, potassium pending, chloride 103, anion gap 6, BUN 20, creatinine 1.61/GFR 42.1 (in comparison to February 2019 creatinine was 1.44/GFR 48.5) last hemoglobin A1c in February 6.2, troponin 0.015, BNP pending, TSH pending. PT, PTT, INR pending. Chest x-ray significant for cardiomegaly with mild volume overload as on prior exam. No convincing evidence of acute cardiopulmonary disease. Decision was made to admit patient to PCU telemetry for further management of congestive heart failure and worsening chronic kidney insufficiency stage CKD 3. Allergies Allergy/AdvReac Type Severity Reaction Status Date / Time adhesive tape Allergy Redness of Unverified 08/08/19 18:49 Skin Iodinated Contrast Media AdvReac Mild GI UPSET Verified 08/08/19 18:20 Home Medications Home Medications Medication Instructions Recorded Confirmed Type aspirin 81 mg PO QPM 11/20/18 08/08/19 History atorvastatin 20 mg PO QPM 11/20/18 08/08/19 History ferrous gluconate 324 mg PO BID 11/20/18 08/08/19 History fluoxetine [Prozac] 20 mg PO QPM 11/20/18 08/08/19 History fluoxetine [Prozac] 40 mg PO QAM 11/20/18 08/08/19 History metoprolol succinate [Toprol XL] 50 mg PO QPM 11/20/18 08/08/19 History metoprolol succinate [Toprol XL] 75 mg PO QAM 11/20/18 08/08/19 History omeprazole 20 mg PO DAILY 11/20/18 08/08/19 History potassium chloride 40 meq PO QPM 11/20/18 08/08/19 History acetaminophen [Tylenol Extra 1,000 mg PO Q8 PRN #60 tab 11/29/18 08/08/19 Rx Strength] tramadol 50 mg PO DAILY PRN 03/04/19 08/08/19 History albuterol sulfate 2 puffs INH Q4H PRN #18 gm 03/07/19 08/08/19 Rx fluticasone furoate-vilanterol 1 inh INHALATION DAILY 08/08/19 08/08/19 History [Breo Ellipta] spironolactone 50 mg PO BID 08/08/19 08/08/19 History torsemide 160 mg PO DAILY 08/08/19 08/08/19 History Past Med/Surg History Medical History Chronic diastolic heart failure, NYHA class 3 Per cardio 11/08, Diuretic use recently decreased and patient experienced worsening SOB and abdominal fullness. Resume prior doing of Torsemide. Pt euvolemic at PAT (unable to assess RLE due to bandaging) Difficult intubation "Elective" glidescope noted on 08/2018 [facility] record, but based on body habitus/physical exam, patient is difficult intubation regardless. GERD (gastroesophageal reflux disease) H/O deep venous thrombosis 5+ yrs ago Hyperlipidemia Labile hypertension Nonobstructive atherosclerosis of coronary artery Obesity Pulmonary emphysema Restrictive cardiomyopathy Preserved EF. Sleep apnea BiPAP HS Surgical History History of arthroscopy RIGHT SHOULDER History of cardiac cath [facility] 2017. Nonobstructive CAD. History of colonoscopy History of inguinal hernia repair History of total knee replacement RIGHT History of total left knee replacement Hx of transurethral resection of prostate S/P cholecystectomy Status post total hip replacement, left Family History Mother Stroke Alzheimer disease Father MVA (motor vehicle accident) Social History Preferred Language: Icelandic Communication Ability: Effective Visual Impairment: No Limitations Economic Forecaster Required: No Beliefs That Will Affect Care: None marital status: Current Living Situation: Spouse Feels Safe at Home: Yes Smoking Status: Former smoker Tobacco Type: cigarettes ; Cigarettes Per Day: HX OF 1-2 PPD X 10 YEARS, QUIT IN 1974 ; Second Hand Exposure: No ; Hx Alcohol Use: No Hx Substance Use: No Review of Systems Review of Systems: All systems reviewed & are unremarkable except as noted in HPI & below Physical Exam Constitutional: WD/WN, vitals as above well developed and + obese Eyes: PERRL, conjunctivae normal, anicteric sclerae ENMT: external ear and nose normal, oropharynx normal Neck: trachea midline, no thyromegaly Respiratory: Auscultation: + wheezes and + bronchovesicular breath sounds Cardiovascular: Heart Sounds: normal S1 and normal S2 Palpation: + palpable S3 Vessels: dorsalis pedis pulses present Extremities: + pedal edema and + edema Gastrointestinal (Abdomen): normal bowel sounds, soft, nontender, no hepatosplenomegaly Musculoskeletal: no cyanosis or clubbing, extremities motor strength 5/5 Neurologic: patellar DTR's 2+ bilat, sensation intact Psychiatric: A+Ox3, euthymic affect Lymphatic: no cervical or axillary lymphadenopathy Results & Data Vital Signs (Past 12 Hours) Vital Signs Temp Pulse Pulse Resp BP BP Pulse Ox 08/08/19 19:23 86 22 140/91 96 08/08/19 17:47 87 24 157/85 H 96 08/08/19 16:55 36.7 C 99 H 24 133/83 95 Code Status & VTE Plan Code Status Full code VTE Prophylaxis Plan VTE Prophylaxis will be ordered: Yes PG Care Time/CCT Total # of Minutes Spent Total Time Spent with Patient: Total time spent is greater than 50% in coordination of care (as documented) at patient's floor/unit and/or counseling patient: (1) Depression Active/Remission status: currently active Depression Type: major depressive disorder Major depression episode severity: unspecified Major depression recurrence: recurrent Qualified Code(s): F33.9 - Major depressive disorder, recurrent, unspecified (2) Hypertension Hypertension type: essential hypertension Qualified Code(s): I10 - Essential (primary) hypertension (3) Hyperlipidemia Hyperlipidemia type: unspecified Qualified Code(s): E78.5 - Hyperlipidemia, unspecified (4) Obstructive lung disease COPD type: emphysema Emphysema type: unspecified Qualified Code(s): J43.9 - Emphysema, unspecified
[2019-08-08] MEDS ORDERED: MAGNESIUM HYDROXIDE SUSP 30 ML UDC PO PRN (20:23)
[2019-08-08] MEDS ORDERED: ZOLPIDEM TARTRATE 5 MG TAB PO PRN (20:23)
[2019-08-08] MEDS ORDERED: ALUMINUM/MAGNESIUM SUSP 30 ML UDC PO PRN (20:23)
[2019-08-08] MEDS ORDERED: ACETAMINOPHEN 325 MG TAB PO PRN (20:23)
[2019-08-08] MEDS ORDERED: BUMETANIDE 10 MG in DEXTROSE 5% 10 ML IV ONE (20:23)
[2019-08-08] MEDS ORDERED: ALBUTEROL HFA 8 GM INHALER INH PRN (20:23)
[2019-08-08] MEDS ORDERED: POLYETHYLENE (MIRALAX) 17 GM PACK PO PRN (20:23)
[2019-08-08] MEDS ORDERED: TRAMADOL HCL 50 MG TABLET PO PRN (20:23)
--- NOTE | 2019-08-08 20:47 | Emergency Department Note ---
Entered by Radha Morejon acting as a scribe for Ar Coleman MD History of Present Illness General Chief complaint: Shortness of Breath/Dyspnea Stated complaint: TROUBLE BREATHING Time Seen by Provider: 08/08/19 17:00 Source: patient Mode of arrival: ambulatory Limitations: no limitations History of Present Illness Onset (ago): week(s) 1 Location: chest Radiation: non-radiation Pain Consistency: + constant Maximum Pain Intensity: 10 Current Pain Intensity: 10 Relieved By: + none and + other (Exertion) Associated symptoms: + chest pain and + nausea/vomiting (+nausea, -vomiting) Treatments prior to arrival: none The patient is a 74 year old female w/ PMHx of CHF, COPD, CKD and DM who presents to the ED w/ CC of shortness of breath for the past 1 week. He rates his discomfort as a 10/10 in severity. He is a former smoker. He complains of some chest discomfort. Exertion worsens his breathing. He admits to some increased leg swelling. He has been nauseous but has not vomited. The patient has no prior cardiac history. He admits to a history of a DVT after breaking his leg. He does not take daily blood thinners. He does take Lasix twice daily. He does not wear Oxygen but uses a bipap at night for sleep apnea. Home Medications Home Medications Medication Instructions Recorded Confirmed Type aspirin 81 mg PO QPM 11/20/18 08/08/19 History atorvastatin 20 mg PO QPM 11/20/18 08/08/19 History ferrous gluconate 324 mg PO BID 11/20/18 08/08/19 History fluoxetine [Prozac] 20 mg PO QPM 11/20/18 08/08/19 History fluoxetine [Prozac] 40 mg PO QAM 11/20/18 08/08/19 History metoprolol succinate [Toprol XL] 50 mg PO QPM 11/20/18 08/08/19 History metoprolol succinate [Toprol XL] 75 mg PO QAM 11/20/18 08/08/19 History omeprazole 20 mg PO DAILY 11/20/18 08/08/19 History potassium chloride 40 meq PO QPM 11/20/18 08/08/19 History acetaminophen [Tylenol Extra 1,000 mg PO Q8 PRN #60 tab 11/29/18 08/08/19 Rx Strength] tramadol 50 mg PO DAILY PRN 03/04/19 08/08/19 History albuterol sulfate 2 puffs INH Q4H PRN #18 gm 03/07/19 08/08/19 Rx fluticasone furoate-vilanterol 1 inh INHALATION DAILY 08/08/19 08/08/19 History [Breo Ellipta] spironolactone 50 mg PO BID 08/08/19 08/08/19 History torsemide 160 mg PO DAILY 08/08/19 08/08/19 History Allergies Allergy/AdvReac Type Severity Reaction Status Date / Time adhesive tape Allergy Redness of Unverified 08/08/19 18:49 Skin Iodinated Contrast Media AdvReac Mild GI UPSET Verified 08/08/19 18:20 Past Med/Surg History Medical History Chronic diastolic heart failure, NYHA class 3 Per cardio 11/08, Diuretic use recently decreased and patient experienced worsening SOB and abdominal fullness. Resume prior doing of Torsemide. Pt euvolemic at PAT (unable to assess RLE due to bandaging) Difficult intubation "Elective" glidescope noted on 08/2018 [facility] record, but based on body habitus/physical exam, patient is difficult intubation regardless. GERD (gastroesophageal reflux disease) H/O deep venous thrombosis 5+ yrs ago Hyperlipidemia Labile hypertension Nonobstructive atherosclerosis of coronary artery Obesity Pulmonary emphysema Restrictive cardiomyopathy Preserved EF. Sleep apnea BiPAP HS Surgical History History of arthroscopy RIGHT SHOULDER History of cardiac cath [facility] 2017. Nonobstructive CAD. History of colonoscopy History of inguinal hernia repair History of total knee replacement RIGHT History of total left knee replacement Hx of transurethral resection of prostate S/P cholecystectomy Status post total hip replacement, left Family History Mother Stroke Alzheimer disease Father MVA (motor vehicle accident) Social History Preferred Language: Sami Communication Ability: Effective Visual Impairment: No Limitations Reliability Technologist Required: No Beliefs That Will Affect Care: None marital status: Current Living Situation: Spouse Other Information That Helps Us Care for You: No Feels Safe at Home: Yes Safety Concerns: Feels Safe At This Time Smoking Status: Never smoker Tobacco Type: cigarettes ; Cigarettes Per Day: HX OF 1-2 PPD X 10 YEARS, QUIT IN 1974 ; Do You Dip or Chew Tobacco: No ; Second Hand Exposure: No ; Hx Alcohol Use: No Hx Substance Use: No Review of Systems See HPI for pertinent positives & negatives. and A total of 10 systems reviewed and were otherwise negative Physical Exam Vital Signs Vital Signs - 24 hr 08/08/19 16:55 08/08/19 17:47 08/08/19 19:23 Temperature 36.7 C Temperature Source Oral Sepsis Recent Fever Within 48 Hours No Sepsis New/Unexplained Change in Mental Status No Sepsis Action Taken by Nursing No Action Required Pulse Rate 99 H Pulse Rate [Right Finger] 87 86 Respiratory Rate 24 24 22 Respiratory Effort / Characteristics Non-Labored Spontaneous Non-Labored Spontaneous Respiratory Depth Normal Blood Pressure 133/83 Blood Pressure [Right Arm] 157/85 H 140/91 Blood Pressure Mean 99 Blood Pressure Mean [Right Arm] 109 107 Blood Pressure Position Sitting Pulse Oximetry 95 96 96 Oxygen Delivery Method Room Air Room Air GENERAL: Well nourished, NAD, non-toxic. EYE EXAM: Normal conjunctiva. PERRL, no anisocoria and EOM's grossly intact w/o pain. OROPHARYNX: Moist mucous membranes. Grossly normal dentition. NECK: Supple, no nuchal rigidity, no adenopathy, non-tender. No signs of meningismus. LUNGS: Decreased breath sounds bilaterally. Normal chest wall mechanics. HEART: NSR, no MRG. ABDOMEN: Abdomen soft, non-tender, normo-active bowel sounds, no masses, no rebound or guarding. BACK: No CVA TTP. SKIN: No rashes and no bruising. UPPER EXTREMITIES: Upper extremities are grossly normal. LOWER EXTREMITIES: 1+ to 2+ symmetric LE edema. No calf pain. Negative Kinza's. NEURO EXAM: A&O x3, cranial nerves II-XII grossly intact, normal speech, moves all 4 extremities on command w/o issue. Course 1718: The patient was evaluated in room B6 and a complete history and physical were performed. 1839: I discussed the patients case with Dr. Hernandez, [facility] Hospitalist. The patient will be further evaluated. 1845: I reevaluated the patient. I discussed his results and my recommendation he remain in the hospital for further evaluation and management and he is agreeable with the plan. Consultations Consultation #1: I discussed the patients case with Dr. Hernandez, [facility] Hospitalist. The patient will be further evaluated. Time: 18:40 Administered Medications Aspirin (Ecotrin Ectab) 81 mg PO QPM MORE Stop: 09/07/19 20:59 Last Admin: 08/08/19 21:40 Dose: Not Given Documented by: [id number] Atorvastatin Calcium (Lipitor) 20 mg PO QPM MORE Stop: 09/07/19 20:59 Last Admin: 08/08/19 21:42 Dose: Not Given Documented by: [id number] Ferrous Gluconate (Ferrous Gluconate) 324 mg PO BID MORE Stop: 09/07/19 20:59 Last Admin: 08/09/19 09:15 Dose: 324 mg Documented by: [id number] Admin: 08/08/19 21:41 Dose: 324 mg Documented by: [id number] Fluoxetine HCl (Prozac) 20 mg PO QPM MORE Stop: 09/07/19 20:59 Last Admin: 08/08/19 21:42 Dose: 20 mg Documented by: [id number] Fluoxetine HCl (Prozac) 40 mg PO QAM MORE Stop: 09/08/19 08:59 Last Admin: 08/09/19 09:15 Dose: 40 mg Documented by: [id number] Heparin Sodium (Porcine) (Heparin Sodium (Porcine)) 5,000 units SQ Q12 MORE Stop: 09/07/19 20:59 Last Admin: 08/09/19 08:23 Dose: 5,000 units Documented by: [id number] Cosigned by: [id number] Admin: 08/08/19 21:40 Dose: 5,000 units Documented by: [id number] Cosigned by: [id number] Furosemide 80 mg/ Syringe 8 mls @ 4 mls/min IV Q8H MORE Stop: 09/08/19 09:59 Last Admin: 08/09/19 10:18 Dose: 4 mls/min Documented by: [id number] Metoprolol Succinate (Toprol Xl) 50 mg PO QPM MORE Stop: 09/07/19 20:59 Last Admin: 08/08/19 21:42 Dose: 50 mg Documented by: [id number] Metoprolol Succinate (Toprol Xl) 75 mg PO QAM MORE Stop: 09/08/19 08:59 Last Admin: 08/09/19 09:15 Dose: 75 mg Documented by: [id number] Potassium Chloride (Klor-Con M20) 40 meq PO QPM MORE Stop: 09/07/19 20:59 Last Admin: 08/08/19 21:43 Dose: 40 meq Documented by: [id number] Fluticasone/Salmeterol (Advair Diskus 100/50) 1 puffs INH BID MORE; Protocol Stop: 09/07/19 20:59 Last Admin: 08/09/19 08:20 Dose: 1 puffs Documented by: [id number] Admin: 08/08/19 21:41 Dose: 1 puffs Documented by: [id number] Spironolactone (Aldactone) 50 mg PO BID17 [facility] Stop: 09/07/19 20:59 Last Admin: 08/09/19 10:18 Dose: 50 mg Documented by: [id number] Admin: 08/08/19 21:40 Dose: 50 mg Documented by: [id number] Tramadol HCl (Ultram) 50 mg PO Q4H PRN PRN Reason: Pain Stop: 09/07/19 20:22 Last Admin: 08/09/19 09:14 Dose: 50 mg Documented by: [id number] Admin: 08/09/19 05:56 Dose: 50 mg Documented by: [id number] Discontinued Medications Furosemide 80 mg/ Syringe 8 mls @ 4 mls/min IV ONE ONE Stop: 08/08/19 18:17 Last Admin: 08/08/19 18:51 Dose: 4 mls/min Documented by: [id number] Bumetanide 10 mg/ Dextrose 50 mls @ 5 mls/hr IV .Q10H ONE Stop: 08/09/19 06:22 Last Infusion: 08/09/19 06:09 Dose: 0 mg/hr, 0 mls/hr Documented by: [id number] Admin: 08/08/19 21:39 Dose: 1 mg/hr, 5 mls/hr Documented by: [id number] Tramadol HCl (Ultram) 50 mg PO DAILY PRN PRN Reason: Pain Stop: 09/07/19 20:22 Last Admin: 08/08/19 21:39 Dose: 50 mg Documented by: [id number] Medical Decision Making Differential Diagnosis Differential diagnoses includes but is not limited to pneumonia, bronchitis, COPD/Asthma exacerbation, pneumothorax, pulmonary embolism, congestive heart failure, acute coronary syndrome. Medical Records Attestation: I reviewed the patient's medical records. Home Medications Current Medication List: was personally reviewed by me Laboratory Data Attestation: I reviewed the patient's lab results. Result diagrams: 08/09/19 06:02 08/09/19 06:02 Lab Results 08/08/19 08/08/19 08/08/19 Range/Units 17:23 17:23 17:23 WBC 10.29 (4.8-10.8) K/uL RBC 4.54 L (4.7-6.1) M/uL Hgb 12.3 L (14.0-18.0) g/dL Hct 40.0 L (42-52) % MCV 88.1 (80-100) fL MCH 27.1 (25-34) pg MCHC 30.8 L (32-36) g/dL RDW Std Deviation 48.3 H (36.4-46.3) fL RDW Coeff of Kartik 15.1 H (11.5-14.5) % Plt Count 314 (130-400) K/uL MPV 10.2 (7.4-10.4) fL Immature Gran % (Auto) 0.3 % Neut % (Auto) 57.2 % Lymph % (Auto) 28.1 % [place] % (Auto) 10.3 % Eos % (Auto) 3.8 % Baso % (Auto) 0.3 % Immature Gran # (Auto) 0.03 H (0.00-0.02) K/uL Neut # (Auto) 5.89 (1.4-6.5) K/uL Lymph # (Auto) 2.89 (1.2-3.4) K/uL [place] # (Auto) 1.06 H (0.11-0.59) K/uL Eos # (Auto) 0.39 (0-0.5) K/uL Baso # (Auto) 0.03 (0-0.2) K/uL PT Cancelled INR Cancelled APTT Cancelled PTT Ratio Cancelled Sodium 137 (136-145) mmol/L Potassium (3.5-5.1) mmol/L Chloride 103 (98-107) mmol/L Carbon Dioxide 27 (21-32) mmol/L Anion Gap 6.0 (3-11) BUN 20 H (7-18) mg/dl Creatinine 1.61 H (0.6-1.4) mg/dl Est Cr Clr Drug Dosing 53.8 ml/min Est GFR ( Amer) 48.8 Est GFR (Non-Af Amer) 42.1 BUN/Creatinine Ratio 12.5 (10-20) Glucose 123 H (70-99) mg/dl Calcium 9.6 (8.5-10.1) mg/dl Total Bilirubin 0.3 (0.2-1) mg/dl AST (15-37) U/L ALT 17 (12-78) U/L Alkaline Phosphatase 105 (45-117) U/L Troponin I < 0.015 (0-0.045) ng/ml NT-Pro-B Natriuret Pep (0-900) pg/ml Total Protein 8.0 (6.4-8.2) gm/dl Albumin 3.4 (3.4-5.0) gm/dl Globulin 4.6 H (2.5-4.0) gm/dl Albumin/Globulin Ratio 0.7 L (0.9-2) TSH (0.300-4.500) uIu/ml Hepatitis C Ab Screen (Neg) 08/08/19 08/08/19 08/08/19 Range/Units 17:23 17:23 17:23 WBC (4.8-10.8) K/uL RBC (4.7-6.1) M/uL Hgb (14.0-18.0) g/dL Hct (42-52) % MCV (80-100) fL MCH (25-34) pg MCHC (32-36) g/dL RDW Std Deviation (36.4-46.3) fL RDW Coeff of Kartik (11.5-14.5) % Plt Count (130-400) K/uL MPV (7.4-10.4) fL Immature Gran % (Auto) % Neut % (Auto) % Lymph % (Auto) % [place] % (Auto) % Eos % (Auto) % Baso % (Auto) % Immature Gran # (Auto) (0.00-0.02) K/uL Neut # (Auto) (1.4-6.5) K/uL Lymph # (Auto) (1.2-3.4) K/uL [place] # (Auto) (0.11-0.59) K/uL Eos # (Auto) (0-0.5) K/uL Baso # (Auto) (0-0.2) K/uL PT INR APTT PTT Ratio Sodium (136-145) mmol/L Potassium (3.5-5.1) mmol/L Chloride (98-107) mmol/L Carbon Dioxide (21-32) mmol/L Anion Gap (3-11) BUN (7-18) mg/dl Creatinine (0.6-1.4) mg/dl Est Cr Clr Drug Dosing ml/min Est GFR ( Amer) Est GFR (Non-Af Amer) BUN/Creatinine Ratio (10-20) Glucose (70-99) mg/dl Calcium (8.5-10.1) mg/dl Total Bilirubin (0.2-1) mg/dl AST (15-37) U/L ALT (12-78) U/L Alkaline Phosphatase (45-117) U/L Troponin I (0-0.045) ng/ml NT-Pro-B Natriuret Pep 130 (0-900) pg/ml Total Protein (6.4-8.2) gm/dl Albumin (3.4-5.0) gm/dl Globulin (2.5-4.0) gm/dl Albumin/Globulin Ratio (0.9-2) TSH 3.410 (0.300-4.500) uIu/ml Hepatitis C Ab Screen Neg (Neg) Imaging Data Radiologist's Impression: Radiology results as stated below per my review and the radiologist's interpretation: XR chest 1V portable CLINICAL HISTORY: 74 years-old Male presenting with Dyspnea. TECHNIQUE: Portable upright AP view of the chest was obtained. COMPARISON: 03/04/2019. FINDINGS: Atherosclerosis of the aortic arch. Cardiac silhouette enlarged. Mild pulmonary vascular prominence as on prior exam. No focal opacity. No large effusion or pneumothorax. Degenerative changes of the thoracic spine. Upper abdomen normal. IMPRESSION: 1. Cardiomegaly with mild volume overload as on prior exam. No other convincing evidence of acute cardiopulmonary disease. Electronically signed by: Antonio Ha M.D. 08/08/2019 5:28 PM ECG Data Attestation: I personally reviewed and interpreted this ECG as follows: Indication: SOB/dyspnea Rate (beats per minute): 90 Rhythm: normal sinus Findings: + other (Borderline QRS, no STS changes) and + RBBB Comparison ECG Date: from (03/04/19) Change: no significant change (QRS is only slightly more lengthened compared to prior but morphology is similar.) Blood Pressure Blood Pressure Findings: Elevated blood pressure Blood Pressure Disposition: further management by hospitalist MDM Narrative The patient is a 74 year old female w/ PMHx of CHF, COPD, CKD and DM who presents to the ED w/ CC of shortness of breath for the past 1 week. Patient was seen and evaluated the bedside. The patient does present with worsening dyspnea on exertion orthopnea and mobility issues. The patient is also noticed some increasing lower extremity edema and weight gain. The patient has not been taking daily weights. Patient does note that he has been using m ore NSAIDs for chronic hip pain. I did discuss that this may be contributory with regard to the patient's weight gain. This could also contribute to hypertension and subsequent volume overload and CHF. Patient does have bibasilar crackles. Work was obtained. Chest x-ray does show that he has some mild volume overload. The patient was given Lasix. Patient's EKG has similar morphology without any obvious ischemic changes. The patient patient's troponin is undetectable. I did speak the on-call hospitalist agreed to further evaluate treat the patient. Patient was admitted to the medicine service. Impression & Plan CHF exacerbation, Volume overload, CKD (chronic kidney disease) stage 3, GFR 30-59 ml/min Discharge Plan Visit Data *Final* Discharge Date/Time: 08/08/19 20:07 Chief Complaint: Shortness of Breath/Dyspnea Stated Complaint: TROUBLE BREATHING ED Provider: Ar Coleman Discharge Problem: CHF exacerbation, Volume overload, CKD (chronic kidney disease) stage 3, GFR 30-59 ml/min Patient Disposition: Admitted As Inpatient Discharge Instructions Interventions: ED Discharge Assessment Last Done: 08/08/19 20:07 Discharge Problem: CHF exacerbation Qualifiers: Heart failure type: unspecified Qualified Code(s): I50.9 - Heart failure, unspecified Volume overload Qualifiers: Hypervolemia type: unspecified Qualified Code(s): E87.70 - Fluid overload, unspecified The scribe's documentation has been prepared under my direction and personally reviewed by me in its entirety. I confirm that the note above accurately reflects all work, treatment, procedures, and medical decision making performed by me.
[2019-08-08] MEDS: HEPARIN SOD 5,000 UNIT/0.5 ML VIAL SQ SCH (21:40)
[2019-08-08] MEDS: ASPIRIN 81 MG ECTAB PO SCH (21:40)
[2019-08-08] MEDS: SPIRONOLACTONE 25 MG TAB PO SCH (21:40)
[2019-08-08] MEDS: FERROUS GLUCONATE 324 MG TAB PO SCH (21:41)
[2019-08-08] MEDS: FLUTICASONE/SALMETEROL 100/50 (ADVAIR) 14 PUFF/1 INHALER INH SCH (21:41)
[2019-08-08] MEDS: FLUOXETINE HCL 20 MG CAP PO SCH (21:42)
[2019-08-08] MEDS: METOPROLOL SUCC 50MG EXT REL TAB PO SCH (21:42)
[2019-08-08] MEDS: ATORVASTATIN 20 MG TAB PO SCH (21:42)
[2019-08-08] MEDS: POTASSIUM CHLORIDE 20 MEQ TABCR PO SCH (21:43)
[2019-08-08] MEDS ORDERED: INFLUENZA VACCINE HIGH DOSE 65+ 0.5 ML SYR IM ONE (22:00)
[2019-08-08] MEDS ORDERED: INFLUENZA ADMINISTRATION CHARGE ONE (22:00)
[2019-08-09] MEDS: TRAMADOL HCL 50 MG TABLET PO PRN ×4 (05:56→19:56)
[2019-08-09 06:16] LABS: Basophils # (auto) 0.02 K/uL (0-0.2); Basophils % (auto) 0.2 %; Eosinophils # (auto) 0.33 K/uL (0-0.5); Eosinophils % (auto) 3.5 %; Hemoglobin 12.5 g/dL (14.0-18.0); Immature Granulocytes # (auto) 0.03 K/uL (0.00-0.02); Immature Granulocytes % (auto) 0.3 %; Lymphocytes % (auto) 29.5 %; Mean Corpuscular Hemoglobin 26.8 pg (25-34); Mean Corpuscular Hgb Conc 30.5 g/dL (32-36); Mean Platelet Volume 10.1 fL (7.4-10.4); Monocytes # (auto) 1.07 K/uL (0.11-0.59); Monocytes % (auto) 11.3 %; Neutrophils # (auto) 5.25 K/uL (1.4-6.5); Neutrophils % (auto) 55.2 %; Platelet Count 338 K/uL (130-400); RDW Coefficient of Variation 15.2 % (11.5-14.5); RDW Standard Deviation 48.4 fL (36.4-46.3); Red Blood Count 4.66 M/uL (4.7-6.1)
[2019-08-09 06:31] LABS: Estimated Average Glucose 143 mg/dl; Hemoglobin A1C 6.6 % (4.5-5.6)
[2019-08-09 06:32] LABS: Partial Thromboplastin Ratio 0.9; Partial Thromboplastin Time 24.3 Seconds (21.0-31.0); Prothrombin Time 10.3 Seconds (9.0-12.0)
[2019-08-09 06:45] LABS: Albumin Level 3.6 gm/dl (3.4-5.0); BUN Creatinine Ratio 12.3 (10-20); Calcium 9.8 mg/dl (8.5-10.1); Creatinine Clr Calc Pharmacy 59.5 ml/min; Est GFR (African American) 49.9; Est GFR (Non-African American) 43.1; Magnesium 2.1 mg/dl (1.8-2.4); Potassium 3.9 mmol/L (3.5-5.1)
[2019-08-09 06:49] LABS: Albumin Globulin Ratio 0.8 (0.9-2); Bilirubin,Total 0.3 mg/dl (0.2-1); Globulin 4.7 gm/dl (2.5-4.0); Total Protein 8.3 gm/dl (6.4-8.2)
[2019-08-09] MEDS: METOPROLOL SUCC 50MG EXT REL TAB PO SCH ×3 (08:20→19:57)
[2019-08-09] MEDS: FLUTICASONE/SALMETEROL 100/50 (ADVAIR) 14 PUFF/1 INHALER INH SCH ×2 (08:20→19:58)
[2019-08-09] MEDS: FLUOXETINE HCL 20 MG CAP PO SCH ×3 (08:21→19:57)
[2019-08-09] MEDS: SPIRONOLACTONE 25 MG TAB PO SCH ×3 (08:22→16:28)
[2019-08-09] MEDS: FERROUS GLUCONATE 324 MG TAB PO SCH ×3 (08:22→19:58)
[2019-08-09] MEDS: HEPARIN SOD 5,000 UNIT/0.5 ML VIAL SQ SCH ×2 (08:23→19:57)
--- NOTE | 2019-08-09 09:07 | Hospitalist Progress Note ---
Date of Service August 09, 2019 Assessment & Plan (1) CHF exacerbation: Patient was on a Lasix drip, although it seems that this was changed to Bumex. That is since been discontinued. We will restart IV Lasix at 80 mg 3 times daily IV. Patient is also on oral Spironolactone which we will continue. 2D echo was performed, await results. He is known to cardiology and will consult them for further recommendations. 2D echo was performed and we are waiting for results. (2) Volume overload: As above (3) Hypertension: Continue home medications as noted, blood pressure is 128/80 today. (4) CKD (chronic kidney disease), stage III: Avoid nephrotoxic agents. Patient has chronic kidney insufficiency CKD stage III which is worsening. Omeprazole on hold due to possible side effects and nephrotoxicity. If patient still needed consider famotidine 20 mg p.o. daily. (5) Depression: Stable , continue fluoxetine 40 mg p.o. every morning (6) Obstructive sleep apnea: Patient does not like the masks after the BiPAP that we use here. He was encouraged to bring his own mask or even his device to use tonight. (7) Type 2 diabetes mellitus: Diet controlled. Will check A1c in a.m. (8) Hyperlipidemia: Lipid panel pending. Continue atorvastatin 20 mg p.o. every afternoon. (9) Obstructive lung disease: Mild pulmonary edema. Continue Breo Ellipta 1 inhalation daily, albuterol sulfate 2 puffs every 4 hours as needed. Subjective Patient was admitted last night with worsening shortness of breath dyspnea on exertion, felt to be CHF exacerbation. Patient was initially on a Lasix drip but this was discontinued the patient had diuresis of 2.5 L overnight. He is down 1.7 kg from his admission weight. Patient today tells me that he is feeling somewhat better. He does appear to be deconditioned has trouble sitting up from bed. He does not appear overtly short of breath. He denies any chest pain, palpitations, diaphoresis, or other symptoms. Review of Systems Review of Systems: All systems reviewed & are unremarkable except as noted in HPI & below Physical Exam Physical Exam: GENERAL: Non-toxic in appearance. Obese. INTEGUMENTARY: Warm, dry, and [place]. HEAD: Normocephalic. EYES: without scleral icterus or trauma. ENT/OROPHARYNX: clear and moist. LYMPHADENOPATHY/NECK: Very thick neck, minimal JVD noted. RESPIRATORY: Lungs clear and equal. Somewhat limited secondary to habitus, no overt rales. CARDIOVASCULAR: Regular rate and rhythm. GI/ABDOMEN: Soft and nontender. No organomegaly or pulsatile mass. No rebound or guarding. Normal bowel sounds. EXTREMITIES: Warm and well perfused. Trace to 1+ pitting edema. BACK: No CVA tenderness. NEUROLOGICAL: Intact without focal deficits. PSYCHIATRIC: normal affect. MUSCULOSKELETAL: Normally developed with good muscle tone. Results & Data Vital Signs (Past 12 Hours) Vital Signs Temp Pulse Pulse Resp BP Pulse Ox 08/09/19 03:41 37.2 C 85 22 141/76 H 95 08/08/19 23:32 37.1 C 92 H 20 127/73 08/08/19 23:20 99 H PG Care Time/CCT Total # of Minutes Spent Total Time Spent with Patient: Total time spent is greater than 50% in coordination of care (as documented) at patient's floor/unit and/or counseling patient: (1) Hypertension Hypertension type: essential hypertension Qualified Code(s): I10 - Essential (primary) hypertension (2) Depression Depression Type: major depressive disorder Major depression recurrence: recurrent Active/Remission status: currently active Major depression episode severity: unspecified Qualified Code(s): F33.9 - Major depressive disorder, recurrent, unspecified (3) Hyperlipidemia Hyperlipidemia type: unspecified Qualified Code(s): E78.5 - Hyperlipidemia, unspecified (4) Obstructive lung disease COPD type: emphysema Emphysema type: unspecified Qualified Code(s): J43.9 - Emphysema, unspecified
[2019-08-09] MEDS: FUROSEMIDE 80 MG in SYRINGE 0 ML IV SCH ×2 (10:18→16:29)
--- NOTE | 2019-08-09 14:42 | Cardiology Consultation ---
Date of Consultation August 09, 2019 Assessment & Plan (1) Obesity hypoventilation syndrome: (2) Obstructive sleep apnea: (3) Diastolic heart failure: (4) CKD (chronic kidney disease) stage 3, GFR 30-59 ml/min: (5) CHF exacerbation: (6) Type 2 diabetes mellitus: I agree with the plan as outlined. Patient needs a few days of IV diuretic. He should also be treated for sleep apnea while he is here in the hospital. We will follow along with you during his hospital stay. History of Present Illness Attending Physician: Lai Vasquez, DO History of Present Illness This is a 74-year-old male patient with a history of obesity, sleep apnea, hypoventilation syndrome, diastolic heart failure and noncompliance. He states that over the past several weeks he is had progressive shortness of breath. He is to wear BiPAP at night but he states he has been sleeping in a chair in his living room and is not brought the equipment over to utilize where he sleeps. He said no chest pain. No heart palpitations or tachycardia. No dizziness or lightheadedness. He has been admitted with acute on chronic diastolic heart failure and is receiving IV diuretics. Past medical history: 1. Chronic class III diastolic congestive heart failure in the setting of preserved ejection fraction chronic hypertensive heart disease 2.Normal coronaries by cardiac catheterization in 2005 with repeat recently at [facility] in May of 2018, with mild nonobstructive coronary atherosclerosis. 3.Obstructive sleep apnea on BiPAP supplement 4.Chronic obesity. 5.Labile hypertension. 6. COPD/ prior tobacco abuse Allergies Allergy/AdvReac Type Severity Reaction Status Date / Time adhesive tape Allergy Redness of Unverified 08/08/19 18:49 Skin Iodinated Contrast Media AdvReac Mild GI UPSET Verified 08/08/19 18:20 Home Medications Home Medications Medication Instructions Recorded Confirmed Type aspirin 81 mg PO QPM 11/20/18 08/08/19 History atorvastatin 20 mg PO QPM 11/20/18 08/08/19 History ferrous gluconate 324 mg PO BID 11/20/18 08/08/19 History fluoxetine [Prozac] 20 mg PO QPM 11/20/18 08/08/19 History fluoxetine [Prozac] 40 mg PO QAM 11/20/18 08/08/19 History metoprolol succinate [Toprol XL] 50 mg PO QPM 11/20/18 08/08/19 History metoprolol succinate [Toprol XL] 75 mg PO QAM 11/20/18 08/08/19 History omeprazole 20 mg PO DAILY 11/20/18 08/08/19 History potassium chloride 40 meq PO QPM 11/20/18 08/08/19 History acetaminophen [Tylenol Extra 1,000 mg PO Q8 PRN #60 tab 11/29/18 08/08/19 Rx Strength] tramadol 50 mg PO DAILY PRN 03/04/19 08/08/19 History albuterol sulfate 2 puffs INH Q4H PRN #18 gm 03/07/19 08/08/19 Rx fluticasone furoate-vilanterol 1 inh INHALATION DAILY 08/08/19 08/08/19 History [Breo Ellipta] spironolactone 50 mg PO BID 08/08/19 08/08/19 History torsemide 160 mg PO DAILY 08/08/19 08/08/19 History Patient History Medical History Chronic diastolic heart failure, NYHA class 3 Per cardio 11/08, Diuretic use recently decreased and patient experienced worsening SOB and abdominal fullness. Resume prior doing of Torsemide. Pt euvolemic at PAT (unable to assess RLE due to bandaging) Difficult intubation "Elective" glidescope noted on 08/2018 [facility] record, but based on body habitus/physical exam, patient is difficult intubation regardless. GERD (gastroesophageal reflux disease) H/O deep venous thrombosis 5+ yrs ago Hyperlipidemia Labile hypertension Nonobstructive atherosclerosis of coronary artery Obesity Pulmonary emphysema Restrictive cardiomyopathy Preserved EF. Sleep apnea BiPAP HS Surgical History History of arthroscopy RIGHT SHOULDER History of cardiac cath [facility] 2018. Nonobstructive CAD. History of colonoscopy History of inguinal hernia repair History of total knee replacement RIGHT History of total left knee replacement Hx of transurethral resection of prostate S/P cholecystectomy Status post total hip replacement, left Family History Mother Stroke Alzheimer disease Father MVA (motor vehicle accident) Social History Preferred Language: Martiniquais Communication Ability: Effective Visual Impairment: No Limitations Cellular Equipment Repairer Required: No Beliefs That Will Affect Care: None marital status: Current Living Situation: Spouse Other Information That Helps Us Care for You: No Feels Safe at Home: Yes Safety Concerns: Feels Safe At This Time Smoking Status: Never smoker Tobacco Type: cigarettes ; Cigarettes Per Day: HX OF 1-2 PPD X 10 YEARS, QUIT IN 1974 ; Do You Dip or Chew Tobacco: No ; Second Hand Exposure: No ; Hx Alcohol Use: No Hx Substance Use: No Review of Systems Review of Systems: All systems reviewed & are unremarkable except as noted in HPI & below Nothing additional to add Physical Exam Physical Exam: General: no acute distress and stated age Head: normocephalic, no masses, lesions, tenderness or abnormalities Eyes: conjunctiva are pink and non-injected, sclera clear Neck: supple, no adenopathy, no bruits, normal jugular venous pulse, no hepatojugular reflux Chest: normal shape and normal respiratory effort Lungs: clear to auscultation and percussion Cardiac Exam: - regular rate & rhythm, no murmurs gallops or rubs - normal S1, normal S2 Pulses: 2(+) throughout Abdomen: abdomen soft, non-tender, no abnormal masses and no hepatosplenomegaly Musculoskeletal: no gait disturbance, no joint inflammation, no deforming arthritis Extremities: no edema and no cyanosis Neuro: grossly normal exam Results & Data Vital Signs (Past 12 Hours) Vital Signs Temp Pulse Pulse Resp BP Pulse Ox 08/09/19 12:55 80 08/09/19 11:15 36.9 C 80 18 114/68 100 08/09/19 09:08 37.2 C 79 18 128/80 95 08/09/19 03:41 37.2 C 85 22 141/76 H 95 Laboratory Results Laboratory Results - last 24 hr 08/08/19 08/08/19 08/08/19 17:23 17:23 17:23 WBC 10.29 RBC 4.54 L Hgb 12.3 L Hct 40.0 L MCV 88.1 MCH 27.1 MCHC 30.8 L RDW Std Deviation 48.3 H RDW Coeff of Kartik 15.1 H Plt Count 314 MPV 10.2 Immature Gran % (Auto) 0.3 Neut % (Auto) 57.2 Lymph % (Auto) 28.1 [place] % (Auto) 10.3 Eos % (Auto) 3.8 Baso % (Auto) 0.3 Immature Gran # (Auto) 0.03 H Neut # (Auto) 5.89 Lymph # (Auto) 2.89 [place] # (Auto) 1.06 H Eos # (Auto) 0.39 Baso # (Auto) 0.03 PT Cancelled INR Cancelled APTT Cancelled PTT Ratio Cancelled Sodium 137 Potassium Chloride 103 Carbon Dioxide 27 Anion Gap 6.0 BUN 20 H Creatinine 1.61 H Est Cr Clr Drug Dosing 53.8 Est GFR ( Amer) 48.8 Est GFR (Non-Af Amer) 42.1 BUN/Creatinine Ratio 12.5 Glucose 123 H POC Glucose Estimat Average Glucose Hemoglobin A1c Calcium 9.6 Magnesium Total Bilirubin 0.3 AST ALT 17 Alkaline Phosphatase 105 Troponin I < 0.015 NT-Pro-B Natriuret Pep Total Protein 8.0 Albumin 3.4 Globulin 4.6 H Albumin/Globulin Ratio 0.7 L Triglycerides Cholesterol LDL Cholesterol, Calc VLDL Cholesterol, Calc HDL Cholesterol Cholesterol/HDL Ratio TSH Hepatitis C Ab Screen 08/08/19 08/08/19 08/08/19 17:23 17:23 17:23 WBC RBC Hgb Hct MCV MCH MCHC RDW Std Deviation RDW Coeff of Kartik Plt Count MPV Immature Gran % (Auto) Neut % (Auto) Lymph % (Auto) [place] % (Auto) Eos % (Auto) Baso % (Auto) Immature Gran # (Auto) Neut # (Auto) Lymph # (Auto) [place] # (Auto) Eos # (Auto) Baso # (Auto) PT INR APTT PTT Ratio Sodium Potassium Chloride Carbon Dioxide Anion Gap BUN Creatinine Est Cr Clr Drug Dosing Est GFR ( Amer) Est GFR (Non-Af Amer) BUN/Creatinine Ratio Glucose POC Glucose Estimat Average Glucose Hemoglobin A1c Calcium Magnesium Total Bilirubin AST ALT Alkaline Phosphatase Troponin I NT-Pro-B Natriuret Pep 130 Total Protein Albumin Globulin Albumin/Globulin Ratio Triglycerides Cholesterol LDL Cholesterol, Calc VLDL Cholesterol, Calc HDL Cholesterol Cholesterol/HDL Ratio TSH 3.410 Hepatitis C Ab Screen Neg 08/09/19 08/09/19 08/09/19 06:02 06:02 06:02 WBC 9.50 RBC 4.66 L Hgb 12.5 L Hct 41.0 L MCV 88.0 MCH 26.8 MCHC 30.5 L RDW Std Deviation 48.4 H RDW Coeff of Kartik 15.2 H Plt Count 338 MPV 10.1 Immature Gran % (Auto) 0.3 Neut % (Auto) 55.2 Lymph % (Auto) 29.5 [place] % (Auto) 11.3 Eos % (Auto) 3.5 Baso % (Auto) 0.2 Immature Gran # (Auto) 0.03 H Neut # (Auto) 5.25 Lymph # (Auto) 2.80 [place] # (Auto) 1.07 H Eos # (Auto) 0.33 Baso # (Auto) 0.02 PT INR APTT PTT Ratio Sodium 136 Potassium 3.9 Chloride 99 Carbon Dioxide 31 Anion Gap 6.0 BUN 19 H Creatinine 1.58 H Est Cr Clr Drug Dosing 59.5 Est GFR ( Amer) 49.9 Est GFR (Non-Af Amer) 43.1 BUN/Creatinine Ratio 12.3 Glucose 136 H POC Glucose Estimat Average Glucose 143 Hemoglobin A1c 6.6 H Calcium 9.8 Magnesium 2.1 Total Bilirubin 0.3 AST 11 L ALT 16 Alkaline Phosphatase 112 Troponin I NT-Pro-B Natriuret Pep Total Protein 8.3 H Albumin 3.6 Globulin 4.7 H Albumin/Globulin Ratio 0.8 L Triglycerides 163 H Cholesterol 193 LDL Cholesterol, Calc 114 VLDL Cholesterol, Calc 33 HDL Cholesterol 46 Cholesterol/HDL Ratio 4 TSH Hepatitis C Ab Screen 08/09/19 08/09/19 06:02 08:16 WBC RBC Hgb Hct MCV MCH MCHC RDW Std Deviation RDW Coeff of Kartik Plt Count MPV Immature Gran % (Auto) Neut % (Auto) Lymph % (Auto) [place] % (Auto) Eos % (Auto) Baso % (Auto) Immature Gran # (Auto) Neut # (Auto) Lymph # (Auto) [place] # (Auto) Eos # (Auto) Baso # (Auto) PT 10.3 INR 1.0 APTT 24.3 PTT Ratio 0.9 Sodium Potassium Chloride Carbon Dioxide Anion Gap BUN Creatinine Est Cr Clr Drug Dosing Est GFR ( Amer) Est GFR (Non-Af Amer) BUN/Creatinine Ratio Glucose POC Glucose 148 H Estimat Average Glucose Hemoglobin A1c Calcium Magnesium Total Bilirubin AST ALT Alkaline Phosphatase Troponin I NT-Pro-B Natriuret Pep Total Protein Albumin Globulin Albumin/Globulin Ratio Triglycerides Cholesterol LDL Cholesterol, Calc VLDL Cholesterol, Calc HDL Cholesterol Cholesterol/HDL Ratio TSH Hepatitis C Ab Screen Medications Administered Current Inpatient Medications Acetaminophen (Tylenol) 650 mg PO Q4H PRN PRN Reason: Pain or Fever Stop: 09/07/19 20:22 Al Hydrox/Mg Hydrox/Simethicone (Maalox) 15 ml PO Q4H PRN PRN Reason: Dyspepsia Stop: 09/07/19 20:22 Albuterol (Ventolin Hfa) 2 puffs INH Q4H PRN PRN Reason: shortness of breath or cough Stop: 09/07/19 20:22 Aspirin (Ecotrin Ectab) 81 mg PO QPM MORE Stop: 09/07/19 20:59 Last Admin: 08/08/19 21:40 Dose: Not Given Documented by: Atorvastatin Calcium (Lipitor) 20 mg PO QPM MORE Stop: 09/07/19 20:59 Last Admin: 08/08/19 21:42 Dose: Not Given Documented by: Ferrous Gluconate (Ferrous Gluconate) 324 mg PO BID MORE Stop: 09/07/19 20:59 Last Admin: 08/09/19 09:15 Dose: 324 mg Documented by: Fluoxetine HCl (Prozac) 20 mg PO QPM MORE Stop: 09/07/19 20:59 Last Admin: 08/08/19 21:42 Dose: 20 mg Documented by: Fluoxetine HCl (Prozac) 40 mg PO QAM MORE Stop: 09/08/19 08:59 Last Admin: 08/09/19 09:15 Dose: 40 mg Documented by: Heparin Sodium (Porcine) (Heparin Sodium (Porcine)) 5,000 units SQ Q12 MORE Stop: 09/07/19 20:59 Last Admin: 08/09/19 08:23 Dose: 5,000 units Documented by: Furosemide 80 mg/ Syringe 8 mls @ 4 mls/min IV Q8H MORE Stop: 09/08/19 09:59 Last Admin: 08/09/19 10:18 Dose: 4 mls/min Documented by: Magnesium Hydroxide (Milk Of Magnesia) 30 ml PO Q12H PRN PRN Reason: Constipation Stop: 09/07/19 20:22 Metoprolol Succinate (Toprol Xl) 50 mg PO QPM MORE Stop: 09/07/19 20:59 Last Admin: 08/08/19 21:42 Dose: 50 mg Documented by: Metoprolol Succinate (Toprol Xl) 75 mg PO QAM [facility] Stop: 09/08/19 08:59 Last Admin: 08/09/19 09:15 Dose: 75 mg Documented by: Polyethylene Glycol (Miralax Powder Packet) 17 gm PO DAILY PRN PRN Reason: Constipation Stop: 09/07/19 20:22 Potassium Chloride (Klor-Con M20) 40 meq PO QPM [facility] Stop: 09/07/19 20:59 Last Admin: 08/08/19 21:43 Dose: 40 meq Documented by: Fluticasone/Salmeterol (Advair Diskus 100/50) 1 puffs INH BID [facility]; Protocol Stop: 09/07/19 20:59 Last Admin: 08/09/19 08:20 Dose: 1 puffs Documented by: Spironolactone (Aldactone) 50 mg PO BID17 [facility] Stop: 09/07/19 20:59 Last Admin: 08/09/19 10:18 Dose: 50 mg Documented by: Tramadol HCl (Ultram) 50 mg PO Q4H PRN PRN Reason: Pain Stop: 09/07/19 20:22 Last Admin: 08/09/19 09:14 Dose: 50 mg Documented by: Zolpidem Tartrate (Ambien) 5 mg PO HS PRN PRN Reason: Sleep Stop: 09/07/19 20:22 (1) CHF exacerbation Heart failure type: unspecified Qualified Code(s): I50.9 - Heart failure, unspecified
[2019-08-09] MEDS: POTASSIUM CHLORIDE 20 MEQ TABCR PO SCH (19:56)
[2019-08-09] MEDS: ASPIRIN 81 MG ECTAB PO SCH (19:57)
[2019-08-09] MEDS: ATORVASTATIN 20 MG TAB PO SCH (19:58)
[2019-08-10] MEDS: FUROSEMIDE 80 MG in SYRINGE 0 ML IV SCH (03:34)
[2019-08-10] MEDS: TRAMADOL HCL 50 MG TABLET PO PRN ×3 (03:41→22:29)
[2019-08-10 05:55] LABS: Basophils # (auto) 0.02 K/uL (0-0.2); Basophils % (auto) 0.2 %; Eosinophils # (auto) 0.49 K/uL (0-0.5); Eosinophils % (auto) 4.6 %; Hematocrit (blood only) 40.8 % (42-52); Hemoglobin 12.3 g/dL (14.0-18.0); Immature Granulocytes # (auto) 0.04 K/uL (0.00-0.02); Immature Granulocytes % (auto) 0.4 %; Lymphocytes # (auto) 3.38 K/uL (1.2-3.4); Lymphocytes % (auto) 31.8 %; Mean Corpuscular Hemoglobin 26.6 pg (25-34); Mean Corpuscular Hgb Conc 30.1 g/dL (32-36); Mean Corpuscular Volume 88.1 fL (80-100); Monocytes # (auto) 1.42 K/uL (0.11-0.59); Monocytes % (auto) 13.3 %; Neutrophils # (auto) 5.29 K/uL (1.4-6.5); Neutrophils % (auto) 49.7 %; Platelet Count 316 K/uL (130-400); RDW Coefficient of Variation 15.3 % (11.5-14.5); RDW Standard Deviation 48.6 fL (36.4-46.3); Red Blood Count 4.63 M/uL (4.7-6.1); White Blood Count 10.64 K/uL (4.8-10.8)
[2019-08-10 06:21] LABS: Albumin Level 3.3 gm/dl (3.4-5.0); BUN Creatinine Ratio 13.8 (10-20); Calcium 9.6 mg/dl (8.5-10.1); Creatinine Clr Calc Pharmacy 57.1 ml/min; Est GFR (African American) 47.4; Est GFR (Non-African American) 40.9; Potassium 3.8 mmol/L (3.5-5.1)
[2019-08-10 06:24] LABS: Albumin Globulin Ratio 0.7 (0.9-2); Bilirubin,Total 0.3 mg/dl (0.2-1); Globulin 4.4 gm/dl (2.5-4.0); Total Protein 7.7 gm/dl (6.4-8.2)
[2019-08-10] MEDS: SPIRONOLACTONE 25 MG TAB PO SCH ×2 (08:21→16:31)
[2019-08-10] MEDS: FLUOXETINE HCL 20 MG CAP PO SCH ×2 (08:21→21:38)
[2019-08-10] MEDS: FLUTICASONE/SALMETEROL 100/50 (ADVAIR) 14 PUFF/1 INHALER INH SCH ×2 (08:21→22:30)
[2019-08-10] MEDS: METOPROLOL SUCC 50MG EXT REL TAB PO SCH ×2 (08:21→21:37)
[2019-08-10] MEDS: HEPARIN SOD 5,000 UNIT/0.5 ML VIAL SQ SCH ×2 (08:22→21:36)
[2019-08-10] MEDS: FERROUS GLUCONATE 324 MG TAB PO SCH ×2 (08:22→21:37)
--- NOTE | 2019-08-10 08:58 | Hospitalist Progress Note ---
Date of Service August 10, 2019 Assessment & Plan (1) CHF exacerbation: Patient was on a Lasix drip, although it seems that this was changed to Bumex. That is since been discontinued. We will restart IV Lasix at 80 mg 3 times daily IV. Patient is also on oral Spironolactone which we will continue. 2D echo reviewed, good EF, no significant valvular disease, likely has acute on chronic diastolic CHF. Improved, did have a minimal creatinine bump. Will decrease Lasix to 80 mg IV twice daily. Continue to monitor I's and O's along with daily weights. Further recommendations per cardiology. PT/OT evaluation noted, patient is at his likely baseline. Patient has been ambulates at home with a cane, has been using a walker here. Eventual plan for discharge home, possibly with services. (2) Volume overload: As above (3) Hypertension: Continue home medications as noted, blood pressure is 128/80 today. (4) CKD (chronic kidney disease), stage III: Continue to monitor on diuresis with Lasix as noted above along with spironolactone. (5) Depression: Stable , continue fluoxetine 40 mg p.o. every morning (6) Obstructive sleep apnea: Patient does not like the masks after the BiPAP that we use here. He was encouraged to bring his own mask or even his device to use Truzip. (7) Type 2 diabetes mellitus: Diet controlled. Hemoglobin A1c was 6.6. (8) Hyperlipidemia: Continue atorvastatin 20 mg p.o. every afternoon. (9) Obstructive lung disease: Mild pulmonary edema. Continue Breo Ellipta 1 inhalation daily, albuterol sulfate 2 puffs every 4 hours as needed. Subjective Patient admits he feels much better today. He denies any further shortness of breath and has O2 sat of 94% on room air. He did not get his BiPAP device from home and was refusing to use our equipment here. Patient had a diuresis of 1.4 L per documentation but he did have a weight gain of 0.7 kg on bedside scale. Review of Systems Review of Systems: All systems reviewed & are unremarkable except as noted in HPI & below Physical Exam Physical Exam: GENERAL: Non-toxic in appearance. INTEGUMENTARY: Warm, dry, and [place]. HEAD: Normocephalic. EYES: without scleral icterus or trauma. ENT/OROPHARYNX: clear and moist. LYMPHADENOPATHY/NECK: Very thick, no obvious JVD RESPIRATORY: Lungs clear, no obvious rales or rhonchi CARDIOVASCULAR: Regular rate and rhythm. GI/ABDOMEN: Soft and nontender. No organomegaly or pulsatile mass. No rebound or guarding. Normal bowel sounds. EXTREMITIES: Warm and well perfused, trace pitting edema BACK: No CVA tenderness. NEUROLOGICAL: Intact without focal deficits. PSYCHIATRIC: normal affect. MUSCULOSKELETAL: Normally developed with good muscle tone. Results & Data Vital Signs (Past 12 Hours) Vital Signs Temp Pulse Pulse Resp BP Pulse Ox 08/10/19 07:20 37.1 C 75 18 119/74 94 08/10/19 03:36 37.1 C 69 16 129/61 95 08/09/19 23:18 37.1 C 70 16 108/63 94 08/09/19 23:06 70 PG Care Time/CCT Total # of Minutes Spent Total Time Spent with Patient: Total time spent is greater than 50% in coordination of care (as documented) at patient's floor/unit and/or counseling patient: (1) CHF exacerbation Heart failure type: unspecified Qualified Code(s): I50.9 - Heart failure, unspecified (2) Volume overload Hypervolemia type: unspecified Qualified Code(s): E87.70 - Fluid overload, unspecified (3) Hypertension Hypertension type: essential hypertension Qualified Code(s): I10 - Essential (primary) hypertension (4) Depression Depression Type: major depressive disorder Major depression recurrence: recurrent Active/Remission status: currently active Major depression episode severity: unspecified Qualified Code(s): F33.9 - Major depressive disorder, recurrent, unspecified (5) Hyperlipidemia Hyperlipidemia type: unspecified Qualified Code(s): E78.5 - Hyperlipidemia, unspecified (6) Obstructive lung disease COPD type: emphysema Emphysema type: unspecified Qualified Code(s): J43.9 - Emphysema, unspecified
[2019-08-10] MEDS ORDERED: FUROSEMIDE 80 MG in SYRINGE 0 ML IV SCH (09:00)
--- NOTE | 2019-08-10 09:24 | Cardiology Progress Note ---
Date of Service August 10, 2019 Assessment & Plan (1) Obesity hypoventilation syndrome: (2) Obstructive sleep apnea: (3) Diastolic heart failure: (4) CKD (chronic kidney disease) stage 3, GFR 30-59 ml/min: (5) CHF exacerbation: (6) Type 2 diabetes mellitus: The patient has had a large diuresis for the past 2 days. He is feeling improved. I believe we can lower his diuretics by switching him over to oral Lasix. Subjective The patient had an uneventful night. He has no new cardiac complaints. He does state that he feels improved. He was to be started on BiPAP last night for sleep apnea but he refused stating the mask did not fit him. Review of Systems Review of Systems: All systems reviewed & are unremarkable except as noted in HPI & below No additional Olga Physical Exam Physical Exam: General: no acute distress and stated age Head: normocephalic, no masses, lesions, tenderness or abnormalities Eyes: conjunctiva are pink and non-injected, sclera clear Neck: supple, no adenopathy, no bruits, normal jugular venous pulse, no hepatojugular reflux Chest: normal shape and normal respiratory effort Lungs: clear to auscultation and percussion Cardiac Exam: - regular rate & rhythm, no murmurs gallops or rubs - normal S1, normal S2 Pulses: 2(+) throughout Abdomen: abdomen soft, non-tender, no abnormal masses and no hepatosplenomegaly Musculoskeletal: no gait disturbance, no joint inflammation, no deforming arthritis Extremities: no edema and no cyanosis Neuro: grossly normal exam Results & Data Vital Signs (Past 12 Hours) Vital Signs Temp Pulse Pulse Resp BP Pulse Ox 08/10/19 07:20 37.1 C 75 18 119/74 94 08/10/19 03:36 37.1 C 69 16 129/61 95 08/09/19 23:18 37.1 C 70 16 108/63 94 08/09/19 23:06 70 Laboratory Results Laboratory Results - last 24 hr 08/10/19 08/10/19 05:38 05:38 WBC 10.64 RBC 4.63 L Hgb 12.3 L Hct 40.8 L MCV 88.1 MCH 26.6 MCHC 30.1 L RDW Std Deviation 48.6 H RDW Coeff of Kartik 15.3 H Plt Count 316 MPV 10.0 Immature Gran % (Auto) 0.4 Neut % (Auto) 49.7 Lymph % (Auto) 31.8 [place] % (Auto) 13.3 Eos % (Auto) 4.6 Baso % (Auto) 0.2 Immature Gran # (Auto) 0.04 H Neut # (Auto) 5.29 Lymph # (Auto) 3.38 [place] # (Auto) 1.42 H Eos # (Auto) 0.49 Baso # (Auto) 0.02 Sodium 135 L Potassium 3.8 Chloride 99 Carbon Dioxide 31 Anion Gap 5.0 BUN 23 H Creatinine 1.65 H Est Cr Clr Drug Dosing 57.1 Est GFR ( Amer) 47.4 Est GFR (Non-Af Amer) 40.9 BUN/Creatinine Ratio 13.8 Glucose 134 H Calcium 9.6 Total Bilirubin 0.3 AST 11 L ALT 16 Alkaline Phosphatase 104 Total Protein 7.7 Albumin 3.3 L Globulin 4.4 H Albumin/Globulin Ratio 0.7 L Medications Administered Current Inpatient Medications Acetaminophen (Tylenol) 650 mg PO Q4H PRN PRN Reason: Pain or Fever Stop: 09/07/19 20:22 Al Hydrox/Mg Hydrox/Simethicone (Maalox) 15 ml PO Q4H PRN PRN Reason: Dyspepsia Stop: 09/07/19 20:22 Albuterol (Ventolin Hfa) 2 puffs INH Q4H PRN PRN Reason: shortness of breath or cough Stop: 09/07/19 20:22 Aspirin (Ecotrin Ectab) 81 mg PO QPM MORE Stop: 09/07/19 20:59 Last Admin: 08/09/19 19:57 Dose: 81 mg Documented by: Atorvastatin Calcium (Lipitor) 20 mg PO QPM MORE Stop: 09/07/19 20:59 Last Admin: 08/09/19 19:58 Dose: 20 mg Documented by: Ferrous Gluconate (Ferrous Gluconate) 324 mg PO BID [facility] Stop: 09/07/19 20:59 Last Admin: 08/10/19 08:22 Dose: 324 mg Documented by: Fluoxetine HCl (Prozac) 20 mg PO QPM MORE Stop: 09/07/19 20:59 Last Admin: 08/09/19 19:57 Dose: 20 mg Documented by: Fluoxetine HCl (Prozac) 40 mg PO QAM [facility] Stop: 09/08/19 08:59 Last Admin: 08/10/19 08:21 Dose: 40 mg Documented by: Furosemide (Lasix) 80 mg PO BID17 [facility] Stop: 09/09/19 16:59 Heparin Sodium (Porcine) (Heparin Sodium (Porcine)) 5,000 units SQ Q12 MORE Stop: 09/07/19 20:59 Last Admin: 08/10/19 08:22 Dose: 5,000 units Documented by: Magnesium Hydroxide (Milk Of Magnesia) 30 ml PO Q12H PRN PRN Reason: Constipation Stop: 09/07/19 20:22 Metoprolol Succinate (Toprol Xl) 50 mg PO QPM [facility] Stop: 09/07/19 20:59 Last Admin: 08/09/19 19:57 Dose: 50 mg Documented by: Metoprolol Succinate (Toprol Xl) 75 mg PO QAM [facility] Stop: 09/08/19 08:59 Last Admin: 08/10/19 08:21 Dose: 75 mg Documented by: Polyethylene Glycol (Miralax Powder Packet) 17 gm PO DAILY PRN PRN Reason: Constipation Stop: 09/07/19 20:22 Potassium Chloride (Klor-Con M20) 40 meq PO QPM [facility] Stop: 09/07/19 20:59 Last Admin: 08/09/19 19:56 Dose: 40 meq Documented by: Fluticasone/Salmeterol (Advair Diskus 100/50) 1 puffs INH BID [facility]; Protocol Stop: 09/07/19 20:59 Last Admin: 08/10/19 08:21 Dose: 1 puffs Documented by: Spironolactone (Aldactone) 50 mg PO BID17 [facility] Stop: 09/07/19 20:59 Last Admin: 08/10/19 08:21 Dose: 50 mg Documented by: Tramadol HCl (Ultram) 50 mg PO Q4H PRN PRN Reason: Pain Stop: 09/07/19 20:22 Last Admin: 08/10/19 03:41 Dose: 50 mg Documented by: Zolpidem Tartrate (Ambien) 5 mg PO HS PRN PRN Reason: Sleep Stop: 09/07/19 20:22 (1) CHF exacerbation Heart failure type: unspecified Qualified Code(s): I50.9 - Heart failure, unspecified
[2019-08-10] MEDS: FUROSEMIDE 80 MG TAB PO SCH (16:32)
[2019-08-10] MEDS: ATORVASTATIN 20 MG TAB PO SCH (21:36)
[2019-08-10] MEDS: POTASSIUM CHLORIDE 20 MEQ TABCR PO SCH (21:36)
[2019-08-10] MEDS: ASPIRIN 81 MG ECTAB PO SCH (21:37)
[2019-08-10] MEDS ORDERED: DiphenhydrAMINE HCL 50 MG/ML VIAL IV PRN (22:03)
[2019-08-10] MEDS ORDERED: DiphenhydrAMINE HCL 50 MG/ML VIAL ONE (22:21)
[2019-08-11 06:16] LABS: Basophils # (auto) 0.05 K/uL (0-0.2); Basophils % (auto) 0.4 %; Eosinophils # (auto) 0.56 K/uL (0-0.5); Eosinophils % (auto) 4.3 %; Hemoglobin 12.4 g/dL (14.0-18.0); Immature Granulocytes # (auto) 0.05 K/uL (0.00-0.02); Immature Granulocytes % (auto) 0.4 %; Lymphocytes # (auto) 3.87 K/uL (1.2-3.4); Mean Corpuscular Hemoglobin 26.8 pg (25-34); Mean Corpuscular Volume 86.6 fL (80-100); Mean Platelet Volume 9.9 fL (7.4-10.4); Monocytes # (auto) 1.64 K/uL (0.11-0.59); Monocytes % (auto) 12.7 %; Neutrophils # (auto) 6.75 K/uL (1.4-6.5); Neutrophils % (auto) 52.2 %; Platelet Count 333 K/uL (130-400); RDW Coefficient of Variation 15.1 % (11.5-14.5); RDW Standard Deviation 48.3 fL (36.4-46.3); Red Blood Count 4.62 M/uL (4.7-6.1); White Blood Count 12.92 K/uL (4.8-10.8)
[2019-08-11 06:46] LABS: Albumin Level 3.2 gm/dl (3.4-5.0); BUN Creatinine Ratio 14.8 (10-20); Calcium 9.8 mg/dl (8.5-10.1); Est GFR (African American) 47.4; Est GFR (Non-African American) 40.9
[2019-08-11 06:49] LABS: Albumin Globulin Ratio 0.7 (0.9-2); Bilirubin,Total 0.4 mg/dl (0.2-1); Globulin 4.6 gm/dl (2.5-4.0); Total Protein 7.8 gm/dl (6.4-8.2)
[2019-08-11] MEDS: FERROUS GLUCONATE 324 MG TAB PO SCH (08:17)
[2019-08-11] MEDS: HEPARIN SOD 5,000 UNIT/0.5 ML VIAL SQ SCH (08:17)
[2019-08-11] MEDS: FLUTICASONE/SALMETEROL 100/50 (ADVAIR) 14 PUFF/1 INHALER INH SCH (08:18)
[2019-08-11] MEDS: SPIRONOLACTONE 25 MG TAB PO SCH (08:18)
[2019-08-11] MEDS: FLUOXETINE HCL 20 MG CAP PO SCH (08:18)
[2019-08-11] MEDS: METOPROLOL SUCC 50MG EXT REL TAB PO SCH (08:18)
[2019-08-11] MEDS: FUROSEMIDE 80 MG TAB PO SCH (08:18)
[2019-08-11] MEDS ORDERED: PANTOprazole 40 MG TAB PO SCH (09:00)
--- NOTE | 2019-08-11 09:29 | Discharge Summary ---
Date of Service August 11, 2019 Admission HPI Per Admitting Provider Patient is a 73 years old male with past medical history of chronic diastolic CHF, obstructive sleep apnea on CPAP, coronary artery disease, hyperlipidemia, presents with dyspnea on exertion, and progressive shortness of breath and weight gain for the past 2 months. Patient said that congestive heart failure has been ongoing for several years and he sees Dr. Domingo who is his manager of sustainability. Patient reports having edema of the lower extremities up to his groin. Patient also reports worsening orthopnea and need to sleep upright in a recliner chair. Patient reports taking his medication as prescribed specific ally torsemide 160 mg p.o. daily but he still says that he cannot get all the fluid out. Last time patient was seen by cardiology was in February 2019 and instructed him to continue diuretics and have supplemental potassium. Patient denies fever, chills, chest pain, abdominal pain, frequency, urgency, hematuria, dysuria, melena, syncope, near syncope. Labs are reviewed: Sodium 137, potassium pending, chloride 103, anion gap 6, BUN 20, creatinine 1.61/GFR 42.1 (in comparison to February 2019 creatinine was 1.44/GFR 48.5) last hemoglobin A1c in February 6.2, troponin 0.015, BNP pending, TSH pending. PT, PTT, INR pending. Chest x-ray significant for cardiomegaly with mild volume overload as on prior exam. No convincing evidence of acute cardiopulmonary disease. Decision was made to admit patient to PCU telemetry for further management of congestive heart failure and worsening chronic kidney insufficiency stage CKD 3. Admission Exam Per Admitting Provider Constitutional: WD/WN, vitals as above well developed and + obese Eyes: PERRL, conjunctivae normal, anicteric sclerae ENMT: external ear and nose normal, oropharynx normal Neck: trachea midline, no thyromegaly Respiratory: Auscultation: + wheezes and + bronchovesicular breath sounds Cardiovascular: Heart Sounds: normal S1 and normal S2 Palpation: + palpable S3 Vessels: dorsalis pedis pulses present Extremities: + pedal edema and + edema Gastrointestinal (Abdomen): normal bowel sounds, soft, nontender, no hepatosplenomegaly Musculoskeletal: no cyanosis or clubbing, extremities motor strength 5/5 Neurologic: patellar DTR's 2+ bilat, sensation intact Psychiatric: A+Ox3, euthymic affect Lymphatic: no cervical or axillary lymphadenopathy Principal Diagnosis 1. Acute on chronic diastolic CHF 2. Obstructive sleep apnea 3. Chronic kidney disease 4. Type 2 diabetes mellitus, diet-controlled 5. Hyperlipidemia 6. Hypertension Discharge Exam GENERAL: Non-toxic in appearance. INTEGUMENTARY: Warm, dry, and [place]. HEAD: Normocephalic. EYES: without scleral icterus or trauma. ENT/OROPHARYNX: clear and moist. LYMPHADENOPATHY/NECK: Very thick neck without JVD RESPIRATORY: Lungs clear and equal. No rales at bases. CARDIOVASCULAR: Regular rate and rhythm. GI/ABDOMEN: Soft and nontender. No organomegaly or pulsatile mass. No rebound or guarding. Normal bowel sounds. EXTREMITIES: Trace pitting edema. Varicose veins noted. BACK: No CVA tenderness. NEUROLOGICAL: Intact without focal deficits. PSYCHIATRIC: normal affect. MUSCULOSKELETAL: Normally developed with good muscle tone. Discharge Data Allergies Allergy/AdvReac Type Severity Reaction Status Date / Time adhesive tape Allergy Redness of Unverified 08/08/19 18:49 Skin Iodinated Contrast Media AdvReac Mild GI UPSET Verified 08/08/19 18:20 Consultations 08/08/19 18:49 ED Decision to Admit Stat 08/09/19 09:14 Consult Cardiology Routine Hospital Course (1) CHF exacerbation: Patient was on a Lasix drip, although it seems that this was changed to Bumex. That was discontinued the patient had a large volume diuresis. I did restart IV Lasix at 80 mg 3 times daily. Patient continued to diurese well. He was seen by cardiology and changed over to Lasix 80 mg twice daily. He was continued on his spironolactone. Patient's symptoms resolved fairly rapidly and he was without shortness of breath at time of discharge. PT/OT evaluation noted, patient is at his likely baseline. Patient has been ambulates at home with a cane, has been using a walker here. Plan for discharge home with services. (2) Volume overload: As above (3) Hypertension: Continue home medications as noted, blood pressure has been stable and will need to be monitored as an outpatient. (4) CKD (chronic kidney disease), stage III: Continue to monitor on diuresis with Lasix as noted above along with spironolactone. (5) Depression: Stable , continue fluoxetine 40 mg p.o. every morning (6) Obstructive sleep apnea: Patient refused BiPAP. She does not feel comfortable with our equipment. Plan to continue BiPAP once he returns home. (7) Type 2 diabetes mellitus: Diet controlled. Hemoglobin A1c was 6.6. (8) Hyperlipidemia: Continue atorvastatin 20 mg p.o. every afternoon. (9) Obstructive lung disease: Mild pulmonary edema. Continue Breo Ellipta 1 inhalation daily, albuterol sulfate 2 puffs every 4 hours as needed. Total Time Total Time Spent Total Time Spent (In Minutes): Discharge time is in excess of 30 minutes. Discharge Plan Discharge Items Patient Disposition: Home - Home Health Services Reason For Visit: ACUTE EXACERBATION OF CHF Discharge Diagnosis: 1. Acute on chronic diastolic CHF 2. Obstructive sleep apnea 3. Chronic kidney disease 4. Type 2 diabetes mellitus, diet-controlled 5. Hyperlipidemia 6. Hypertension Activity: Resume your previous activity Lifting: Gradually increase as tolerated Weightbearing: Full weightbearing Non-emergency contact: Primary Care Provider and Cut Off Saw Grader Call non-emergency contact if: your symptoms worsen Follow-up/Referrals: Pepe Blakely MD [Primary Care Provider] - Patrick Sanchez DO [Cut Off Saw Grader] - Diet: Carb Consistent or DM2 and Heart Healthy Fluids: 1200ml (5 cups) Addtl Attending Provider Instructions: None Pending Studies at Discharge: No Stand-Alone Forms: My [facility] Porous Power, Smoking Cessation Medications and DC Order Prescriptions: New furosemide 80 mg Tablet 80 mg PO BID17 30 Days Qty: 60 RF: 0 Continued fluoxetine [Prozac] 40 mg capsule 20 mg PO QPM RF: 0 fluoxetine [Prozac] 40 mg capsule 40 mg PO QAM RF: 0 atorvastatin 20 mg tablet 20 mg PO QPM RF: 0 metoprolol succinate [Toprol XL] 50 mg tablet extended release 24 hr 50 mg PO QPM RF: 0 metoprolol succinate [Toprol XL] 50 mg tablet extended release 24 hr 75 mg PO QAM RF: 0 aspirin 81 mg Tablet,Delayed Release (Dr/Ec) 81 mg PO QPM RF: 0 omeprazole 20 mg capsule,delayed release(DR/EC) 20 mg PO DAILY RF: 0 ferrous gluconate 324 mg (37.5 mg iron) Tablet 324 mg PO BID RF: 0 potassium chloride 20 mEq Tablet Extended Release 40 meq PO QPM RF: 0 tramadol 50 mg tablet 50 mg PO DAILY PRN (Reason: Pain) RF: 0 albuterol sulfate 90 mcg/actuation HFA aerosol inhaler 2 puffs INH Q4H PRN (Reason: shortness of breath or cough) Qty: 18 RF: 0 Breo Ellipta 100-25 mcg/dose blister with device 1 inh inhalation DAILY RF: 0 spironolactone 25 mg tablet 50 mg PO BID RF: 0 acetaminophen [Tylenol Extra Strength] 500 mg tablet 1,000 mg PO Q8 PRN (Reason: pain) Qty: 60 RF: 0 Discontinued torsemide 20 mg tablet 160 mg PO DAILY RF: 0 Discharge Orders: Discharge Order (Routine); Ordered 08/11/19 Ordered By: Lai Lombardo/Other Patient Handouts: A1C, Diabetes Jail Complications, Diabetes Healthy Meals, Diabetes Carbs, Diabetes Exercise Benefits, Diabetes Exercise Get Started, Diabetes Activity Tips Admission Data Admit Date/Time: 08/08/19 19:53 Attending Provider: Lai Vasquez Admit Provider: Mateo Hernandez Primary Care Provider: Pepe Blakely Other Providers: Mateo Hernandez ; Jose L Griffin
== END 2019-08-11 12:44 | disposition home health service (06) | DRG 292 ==
LOC: ED 16:42 → SUATTDRO 19:53 → 2E 19:53

== ENCOUNTER 2019-09-06 10:51 | Inpatient (IN) ==
--- NOTE | 2019-08-22 15:27 | Anesthesiology Consultation ---
Date of Service August 22, 2019 Assessment & Plan (1) Encounter for pre-operative examination: - Awaiting review preop testing (labs, CXR). - Cardiology: 08/21/19: "Patient appears euvolemic since hospital discharge. He is monitoring salt/sodium intake and daily weight which is unchanged since hospital discharge. PCP recently increased furosemide to 120 mg BID. Continue spironolactone 25 mg BID.. We discussed cardiovascular risks of surgery.. He has no anginal symptoms and cardiac catheterization 1 year ago demonstrated non obstructive disease. No ischemic EKG changes noted 2 weeks on inpatient EKG and preserved LV systolic function without valvular heart disease noted on recent echo. Given his history of chronic diastolic heart failure, due to his hypertensive heart disease/hypo ventilatory syndrome, he is considered at least moderate risk for perioperative complications. Further testing is not warranted at this time, as this would not reduce/improve his overall surgical risk. He is aware of his risks and wishing to proceed. Spinal anesthesia over general anesthesia is preferred if acceptable." - S/P right ORIF distal fibula: 11/29/18: Grade view 1, Singh #2, ETT 8.0 at [facility] - Anxious: RE anesthesia/surgery- patient requests anxiolytic preoperatively if possible Chart Review Chart Review: Patient seen in Pre Admission Testing Teaching & Discussion Pre-Anesthesia Teaching/Discussion Notes: Instructed NPO after midnight before surgery,except medications with 15 cc of water. Medication instructions provided according to the PAT guidelines. History Surgery Operation Date: 09/06/19 13:25 Proposed Procedures p Right Total Hip Arthroplasty - Anand Restrepo MD Height/Weight Height: 5 ft 11 in Weight: 139 kg Allergies Allergy/AdvReac Type Severity Reaction Status Date / Time adhesive tape Allergy Mild Redness of Unverified 08/20/19 11:52 Skin Iodinated Contrast Media AdvReac Mild GI UPSET Verified 08/20/19 11:52 Medications Home Medications Medication Instructions Recorded Confirmed Last Taken aspirin 81 mg PO QPM 11/20/18 08/20/19 08/08/19 atorvastatin 20 mg PO QPM 11/20/18 08/20/19 08/08/19 ferrous gluconate 324 mg PO BID 11/20/18 08/20/19 08/08/19 324mg fluoxetine [Prozac] 20 mg PO QPM 11/20/18 08/20/19 08/07/19 fluoxetine [Prozac] 40 mg PO QAM 11/20/18 08/20/19 08/08/19 metoprolol succinate [Toprol XL] 50 mg PO QPM 11/20/18 08/20/19 08/07/19 metoprolol succinate [Toprol XL] 75 mg PO QAM 11/20/18 08/20/19 08/08/19 omeprazole 20 mg PO QAM 11/20/18 08/20/19 08/08/19 potassium chloride 40 meq PO QPM 11/20/18 08/20/19 03/03/19 acetaminophen [Tylenol Extra 1,000 mg PO Q8 PRN #60 tab 11/29/18 08/20/19 Unknown Strength] tramadol 50 mg PO DAILY PRN 03/04/19 08/20/19 08/07/19 albuterol sulfate 2 puffs INH Q4H PRN #18 gm 03/07/19 08/20/19 Unknown Breo Ellipta 1 inh INHALATION QAM 08/08/19 08/20/19 08/08/19 spironolactone 50 mg PO BID 08/08/19 08/20/19 08/08/19 50mg furosemide 120 mg PO BID 08/20/19 08/20/19 Unknown Past Medical History Medical History Anxiety and depression BPH (benign prostatic hyperplasia) Chronic diastolic heart failure, NYHA class 3 Degenerative disc disease GERD (gastroesophageal reflux disease) H/O deep venous thrombosis 5+ yrs ago s/p fall Hyperlipidemia Hypertension Morbid obesity Nonobstructive atherosclerosis of coronary artery Osteoarthritis Pulmonary emphysema Restrictive cardiomyopathy Sleep apnea BIPAP Exercise / Class Metabolic Activity III < 4 Walking/Shop/Light housework Past Family History Family History Mother Stroke Alzheimer disease Father MVA (motor vehicle accident) Past Surgical History Surgical History Difficult intubation "Elective" glidescope noted on 08/2018 [facility] record History of arthroscopy RIGHT SHOULDER History of cardiac cath MULTIPLE (NO STENTS PLACED) MOST RECENT= 2018 History of cataract surgery RT/LEFT History of colonoscopy History of esophagogastroduodenoscopy (EGD) History of herniorrhaphy multiple History of open reduction and internal fixation (ORIF) procedure LEFT WRIST (HARDWARE REMOVED) 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) History of tooth extraction History of total knee replacement RIGHT/LEFT Hx of transurethral resection of prostate S/P cholecystectomy Status post total hip replacement, left Past Anesthesia History Difficult Airway ("Elective" glidescope noted on 08/2018 [facility] record) and No Family Hx of Anesthesia Complications *Post-op depression per patient* History of PONV No Hx of PONV and No Hx of Motion Sickness Social History Smoking Status: Former smoker tobacco type: cigarettes Smoking cigarettes per day: HX OF 1-2 PPD X 10 YEARS, QUIT IN 1974 Do You Dip or Chew Tobacco: No Smoking End Date: 1974 Hx Alcohol Use: No Hx Substance Use: No substance use type: does not use Review of Systems Reflux controlled. Patient denies chest pain, shortness of breath, cough, wheezing, palpitations. Physical Exam Vital Signs Last Vital Signs Temp 36.6 C 08/22/19 15:21 Pulse 72 08/22/19 15:21 Resp 24 08/22/19 15:21 BP 124/81 08/22/19 15:21 Pulse Ox 95 08/22/19 15:21 PHYSICAL Full neck and c-spine range of motion. Full TMJ range of motion. TMD 3 finger breaths (difficult to palpate) Mallampati Score 3 Dentition: full upper plate, no teeth on lower Lungs: clear throughout to auscultation Cardiac: regular rate and rhythm, no murmurs noted Spine: normal Carotid arteries: negative bruit Extremities: no edema Thick neck Testing Laboratory Results 08/22/19 15:40 Electrocardiogram Date: 08/08/19 NSR at 90bpm. LAD. RBBB. Chest X-Ray Date: 08/22/19 Atherosclerosis of the aortic arch. Cardiac silhouette enlarged. Pulmonary vasculature is not significantly enlarged. Lungs and pleural spaces clear. Degenerative changes of the thoracic spine. Cholecystectomy clips noted. Cardiomegaly. No other convincing evidence of acute cardiopulmonary disease. Echocardiogram Date: 08/09/19 EF 60-65%. Grossly normal valvular structure and function. Technically limited study. Stress Test Date: 01/11/16 Type: DSE The stress echo is negative for inducible ischemia. Hypertensive baseline blood pressure with a normal response to dobutamine infusion. Resting study: EF 60- 64%. Mild concentric LVH. Grade 1 diastolic dysfunction. Left atrium is moderately enlarged. Mild TR is present. Cardiac Catheterization Date: 06/26/18 Mild nonobstructive CAD. Elevated LVEDP at 24 mmHg. No significant LVaortic gradient. RHC was not performed due to difficulty accessing right femoral and right IJ veins.
[2019-08-22 16:03] LABS: Basophils # (auto) 0.02 K/uL (0-0.2); Basophils % (auto) 0.2 %; Eosinophils # (auto) 0.27 K/uL (0-0.5); Eosinophils % (auto) 2.9 %; Hematocrit (blood only) 39.1 % (42-52); Hemoglobin 11.8 g/dL (14.0-18.0); Immature Granulocytes # (auto) 0.02 K/uL (0.00-0.02); Immature Granulocytes % (auto) 0.2 %; Lymphocytes # (auto) 2.74 K/uL (1.2-3.4); Lymphocytes % (auto) 29.9 %; Mean Corpuscular Hemoglobin 26.6 pg (25-34); Mean Corpuscular Hgb Conc 30.2 g/dL (32-36); Mean Corpuscular Volume 88.1 fL (80-100); Mean Platelet Volume 10.1 fL (7.4-10.4); Monocytes # (auto) 0.99 K/uL (0.11-0.59); Monocytes % (auto) 10.8 %; Neutrophils # (auto) 5.13 K/uL (1.4-6.5); Platelet Count 346 K/uL (130-400); RDW Coefficient of Variation 15.4 % (11.5-14.5); RDW Standard Deviation 49.5 fL (36.4-46.3); Red Blood Count 4.44 M/uL (4.7-6.1); White Blood Count 9.17 K/uL (4.8-10.8)
--- NOTE | 2019-08-22 16:03 | XRay Report ---
XR chest Pre-admission PA/Lat CLINICAL HISTORY: 74 years-old Male presenting with preoperative assessment, history of CHF. TECHNIQUE: PA and lateral views of the chest were obtained. COMPARISON: 08/08/2019. FINDINGS: Atherosclerosis of the aortic arch. Cardiac silhouette enlarged. Pulmonary vasculature is not signifi cantly enlarged. Lungs and pleural spaces clear. Degenerative changes of the thoracic spine. Cholecys tectomy clips noted. IMPRESSION: 1. Cardiomegaly. No other convincing evidence of acute cardiopulmonary disease. Electronically signed by: Antonio Ha M.D. 08/22/2019 4:01 PM
[2019-08-22 16:13] LABS: BUN Creatinine Ratio 11.4 (10-20); C Reactive Protein 1.43 mg/dl (0-0.29); Calcium 9.7 mg/dl (8.5-10.1); Creatinine Clr Calc Pharmacy 49.3 ml/min; Est GFR (African American) 39.2; Est GFR (Non-African American) 33.8; Potassium 4.3 mmol/L (3.5-5.1)
[2019-08-22 16:15] LABS: Partial Thromboplastin Ratio 0.9; Partial Thromboplastin Time 25.1 Seconds (21.0-31.0); Prothrombin Time 10.4 Seconds (9.0-12.0)
[2019-08-23 05:27] LABS: Estimated Average Glucose 140 mg/dl; Hemoglobin A1C 6.5 % (4.5-5.6)
--- NOTE | 2019-09-04 23:25 | History and Physical Report ---
DATE OF ADMISSION: 09/06/2019 CHIEF COMPLAINT: Right hip pain and discomfort. HISTORY OF PRESENT ILLNESS: The patient is a 74-year-old gentleman who presents for surgical treatment of his right hip. He has got a long history of multiple joint problems and had his left hip replaced. The left hip replacement was done about a year ago. He fell a couple of weeks after that and broke his ankle. This was fixed by Dr. Jones. He has had some problems with wound healing, but everything has healed up pretty well. He describes mostly severe incapacitating pain in his right hip. He describes groin pain. It radiates down to his thigh. He has been using a cane to get around. The more he walks, the more he limps and the more painful it gets. He now would like to have his hip fixed. PAST MEDICAL HISTORY: 1. Heart disease/congestive heart failure. 2. Hypertension. 3. Elevated cholesterol. 4. COPD. 5. Sleep apnea. 6. Anxiety/depression. 7. Obesity with BMI of 43. 8. Back pain/sciatica. 9. Gastroesophageal reflux disease. 10. Hiatal hernia. 11. BPH. PAST SURGICAL HISTORY: Include, 1. Left hip replacement done a year ago. 2. Right ankle ORIF about a year ago. 3. Herniorrhaphy. 4. Right shoulder surgery. 5. Bilateral knee replacement. ALLERGIES: IODINE. CURRENT MEDICINES: Consist of, 1. Tylenol Extra Strength. 2. Albuterol inhaler. 3. Aspirin 81 mg a day. 4. Atorvastatin. 5. Breo Ellipta inhaler. 6. Iron sulfate. 7. Prozac. 8. Furosemide. 9. Toprol-XL. 10. Omeprazole. 11. Potassium chloride. 12. Spironolactone. 13. Tramadol. SOCIAL HISTORY: A 74-year-old male. He is from [place]. He does not smoke. He is . FAMILY HISTORY: Not contributory. REVIEW OF SYSTEMS: Negative for diabetes, neurologic problems, vascular problems, or bleeding disorders. No chest pain or shortness of breath. No history of DVT or PE. PHYSICAL EXAMINATION: GENERAL: Shows a pleasant, elderly, moderately obese male. He does not look to be in optimal health. HEENT: Benign. NECK: Supple, no lymphadenopathy. LUNGS: Clear to auscultation. HEART: Regular rate and rhythm. ABDOMEN: Soft, nontender, nondistended. EXTREMITIES: Grossly neurovascularly intact except as follows: Examination of the right hip revealed a patient who walks with a markedly antalgic gait. He is using a cane. Leg lengths appear pretty equal. He has got pain with any type of hip motion. There is no redness or warmth to his thigh or hip area. He can internally rotate to neutral, which is painful. Negative straight leg raise. X-RAYS: X-rays of the right hip were reviewed. It shows a fairly well-preserved joint space. There is certainly some suggestion of avascular necrosis with a slight bit of collapse of the femoral head and diffuse osteopenia. ASSESSMENT: A 74-year-old gentleman with persistent and progressive right hip pain that has gotten worse over the past several months consistent with avascular necrosis as documented on plain films and MRI. We talked about treatment. His avascular necrosis has progressed and is at the point where it is really debilitating him. We talked about conservative measures and hip-preserving measures. Certainly, these are less predictable. He would like to have his hip replaced. PLAN: We will take him to the operating room and do right total hip replacement. The risks and benefits of this procedure were explained to the patient including, but not limited to, DVT, PE, , infection, neurological injury, vascular injury, bleeding problem, pain, limited range of motion, stiffness, fracture, leg length inequality, nerve palsy, need for further surgery in the future. The patient understands and desires to proceed. Informed consent was obtained.
[~2019-09-06 10:51] MED LIST changes: +ACETAMINOPHEN 500 MG TAB PO SCH; -ASPI81TA28 PO; -BMX1 PO; +BUPIVACAINE 0.5 % 5 MG/1 ML PF 10ML VIAL ONE; -CARV12.52 PO; -CELE1CAP30 PO; +FAMOTIDINE 20 MG TAB PO SCH; -FERR324T PO; -FLUO20CA36 PO; +GABAPENTIN 300 MG CAP PO SCH; -LPT20 PO; +LR 500ML BOLUS, THEN 15ML/HR IV SCH; +LR 60ML/HR IV SCH; -METO2.5T PO; +METOCLOPRAMIDE HCL 10 MG TABLET PO SCH; -POTA-639 PO; -PRLSR20 PO; -SPIR25TA PO; -SYMIN160 INH; +TRANEXAMIC ACID 1,000 MG **IV Pre-op IV SCH
[2019-09-06] MEDS ORDERED: MIDAZOLAM HCL 1 MG/ML 2ML VIAL ONE ×2 (11:46→14:14)
[2019-09-06] MEDS ORDERED: fentaNYL citrate 100 MCG/2 ML VIAL ONE (11:47)
[2019-09-06] MEDS ORDERED: BACITRACIN INJ 50,000 UNIT VIAL ONE (13:12)
[2019-09-06] MEDS ORDERED: BUPIVACAINE 0.5 % 5 MG/1 ML MPF 30ML VIAL ONE ×2 (13:13→14:29)
[2019-09-06] MEDS ORDERED: EPINEPHrine INJ 1 MG/ML AMP ONE (13:13)
[2019-09-06] MEDS ORDERED: MoRPHine SULFATE PF 1 MG/ML 10 ML AMP/VIAL ONE (13:23)
--- NOTE | 2019-09-06 13:29 | History & Physical Bridge Note ---
Date of Service September 06, 2019 History & Physical Bridge Note I have examined the patient, reviewed the History & Physical and in the interval since the performance of the History & Physical I have noted the following changes of clinical significance: no changes noted
[2019-09-06] MEDS: CEFAZOLIN 3000MG 72.5 ML IV SCH ×2 (14:03→14:15)
[2019-09-06] MEDS ORDERED: NALOXONE HCL 0.4 MG/1 ML VIAL/CARP IV PRN ×2 (14:17→17:24)
[2019-09-06] MEDS ORDERED: DiphenhydrAMINE HCL 50 MG/ML VIAL IV PRN (14:17)
[2019-09-06] MEDS ORDERED: ONDANSETRON INJ 2 MG/ML 2 ML VIAL IV PRN ×2 (14:17→17:24)
[2019-09-06] MEDS ORDERED: HYDROmorphone INJ 0.5 MG/0.5 ML SYR IV PRN (14:17)
[2019-09-06] MEDS ORDERED: NALBUPHINE HCL INJ 10 MG/ML AMP IV PRN (14:17)
[2019-09-06] MEDS ORDERED: MoRPHine SULFATE PF 1 MG/ML 10 ML AMP/VIAL INT SPINAL ONE (14:17)
[2019-09-06] MEDS ORDERED: ATROPINE SULFATE 0.1 MG/ML 10ML SYR IV PRN (14:17)
[2019-09-06] MEDS ORDERED: NALOXONE HCL 0.08 MG in SYRINGE 1.8 ML IV PRN (14:17)
[2019-09-06] MEDS ORDERED: LACTATED RINGER'S 500 ML IV PRN (14:17)
[2019-09-06] MEDS ORDERED: NALOXONE HCL 1 MG in SODIUM CHLORIDE 0.9% 1000ML 1,000 ML IV PRN (14:17)
[2019-09-06] MEDS ORDERED: ePHEDrine sulfate 50 MG/ML AMP IV PRN ×2 (14:17)
[2019-09-06] MEDS ORDERED: PROPOFOL IV EMULSION 10 MG/ML 20 ML VIAL IV ONE (14:21)
[2019-09-06] MEDS ORDERED: NO NARCOTICS OR SEDATIVES SCH (14:30)
--- NOTE | 2019-09-06 16:09 | Post Operative Brief Note ---
PG Immediate Post Op with CF Date of Surgery September 06, 2019 Pre & Post Diagnosis Operation Date: 09/06/19 13:00 Pre-Op Diagnosis: Right Hip Avascular Necrosis Post-Op Diagnosis: Right Hip Avascular Necrosis I identified the patient and participated in the time-out.: Yes Procedure Operation Date: 09/06/19 13:00 Actual Procedures p Right Total Hip Arthroplasty(Right) - Anand Restrepo MD Surgeon Anand Restrepo MD Pesticide Applicator Jorge, PAC Estimated Blood Loss 300 Findings Consistent with Post-Op Diagnosis Fluids 1000 cc Specimens Specimen Description: A. Right Femoral Head Drains Loera Catheter Complications none Disposition Accompanied Patient To Recovery: Yes Disposition: Recovery Room
[2019-09-06] MEDS ORDERED: METOPROLOL TARTRATE 1 MG/ML VIAL IV STA (16:37)
[2019-09-06] MEDS ORDERED: METOPROLOL TARTRATE 1 MG/ML VIAL IV ONE (16:39)
--- NOTE | 2019-09-06 17:05 | Anesthesiology Progress Note ---
Date of Service September 06, 2019 Anesthesia Post Procedure Vital Signs Vital Signs: Temp Pulse Pulse Pulse Resp BP BP 09/06/19 16:55 36.4 C L 78 19 119/76 09/06/19 16:47 101 H 121/88 09/06/19 16:45 99 H 14 121/88 09/06/19 16:35 95 H 15 127/89 09/06/19 16:25 104 H 22 117/83 09/06/19 16:15 97 H 10 L 120/91 09/06/19 16:09 36.0 C L 92 H 16 161/89 H 09/06/19 12:04 37.2 C 114 H 18 149/93 H Pulse Ox 09/06/19 16:55 99 09/06/19 16:47 09/06/19 16:45 98 09/06/19 16:35 94 09/06/19 16:25 98 09/06/19 16:15 100 09/06/19 16:09 100 09/06/19 12:04 94 Pain Intensity Right Hip: Pain Intensity: 1 Transfer of Care Handoff Completed per policy Notes Mental Status: alert / awake / arousable Patient Amnestic to Procedure: Yes Nausea / Vomiting: adequately controlled Pain: adequately controlled Airway Patency, RR, SpO2: stable & adequate BP & HR: stable & adequate Hydration State: stable & adequate Neuraxial Anesthesia: was administered and sensory block is resolving Anesthetic Complications: no major complications apparent and Pt Satisfied with anesthetic care
--- NOTE | 2019-09-06 17:15 | XRay Report ---
XR hip 1V RT w pelvis HISTORY: 74 years-old Male IN PACU - A/P PELVIS and LATERAL HIP right hip total joint arthroplasty COMPARISON: Pelvis radiograph 07/26/2019 TECHNIQUE: AP view of the pelvis with crosstable lateral view of the right hip FINDINGS: Unchanged satisfactory appearance of the left hip total joint arthroplasty. Right hip total joint art hroplasty is noted with satisfactory alignment. No acute fracture or retained foreign body identified . Lateral skin emily are noted along with expected postsurgical soft tissue swelling and deep tissu e air. IMPRESSION: Satisfactory alignment of the right hip total joint arthroplasty. The above report was generated using voice recognition software. It may contain grammatical, syntax o r spelling errors. Electronically signed by: Rigo Ritchie M.D. 09/06/2019 5:14 PM
[2019-09-06] MEDS ORDERED: ALUMINUM/MAGNESIUM SUSP 30 ML UDC PO PRN (17:24)
[2019-09-06] MEDS ORDERED: VANCOMYCIN CONSULT ACTIVE PRN (17:24)
[2019-09-06] MEDS ORDERED: MAGNESIUM HYDROXIDE SUSP 30 ML UDC PO PRN (17:24)
[2019-09-06] MEDS ORDERED: TAMSULOSIN HCL 0.4 MG CAP PO PRN (17:24)
[2019-09-06] MEDS ORDERED: NO NSAIDS SCH (17:24)
[2019-09-06] MEDS ORDERED: METOCLOPRAMIDE HCL INJ 5 MG/ML 2 ML VIAL IV PRN (17:24)
[2019-09-06] MEDS ORDERED: SODIUM CHLORIDE 0.9% 1000ML 1,000 ML IV SCH (17:24)
[2019-09-06] MEDS ORDERED: ALBUTEROL HFA 8 GM INHALER INH PRN (17:24)
[2019-09-06] MEDS ORDERED: BISACODYL 10 MG SUPP PR PRN (17:24)
--- NOTE | 2019-09-06 18:09 | Operative Report ---
Post Operative Report Pre & Post Diagnosis Operation Date: 09/06/19 13:00 Pre-Op Diagnosis: Right Hip Avascular Necrosis Post-Op Diagnosis: Right Hip Avascular Necrosis I identified the patient and participated in the time-out.: Yes Procedure Operation Date: 09/06/19 13:00 Actual Procedures p Right Total Hip Arthroplasty(Right) - Anand Restrepo MD Surgeon Anand Restrepo MD Chief Substation Operator Jorge, PAC Estimated Blood Loss 300 Findings Consistent with Post-Op Diagnosis Fluids 1000 cc Specimens Right femoral head sent for pathology. Anesthesia Type Spinal MAC Complications none Disposition Accompanied Patient To Recovery: No Disposition: Recovery Room Indications Patient is a 74-year-old gentleman with a long history of multiple orthopedic problems. He had both of his knees replaced and his left hip replaced about a year ago for avascular necrosis. Over the past year he developed significantly increased pain discomfort in his right hip. An MRI showed progression of his avascular necrosis with second bone marrow edema and hip joint effusion. He failed conservative treatment elected proceed with total hip arthroplasty. The patient is morbidly obese as well with multiple medical comorbidities. Patient was medically optimized and desired to proceed with surgery. Description of Procedure Operative implants consisted of: 1. Biomet size 56 mm G7 acetabular shell. 2. Biomet apex hole eliminator. 3. Biomet 6.5 cancellus acetabular screws were 35 mm in length and 130 mm in length. 4. Highly cross-link polyethylene liner with a 56 mm outer diameter and 36 mm inner diameter with a dorantes placed inferior and posterior. 5. [place] Corail size 12 KLA femoral stem. 6.. +5/36 mm ceramic articular ball. Patient was taken to the operating room identified and placed on the operating table supine position with all contact areas were properly padded. IV antibiotic was provided by the anesthesia team. A spinal anesthetic had been implemented holding area. Loera catheter was placed in sterile fashion. The patient was then placed in the left lateral decubitus position. An axillary ro ll was placed. The Stulberg hip positioner was used for positioning. The right hip was then prepped and draped in usual sterile fashion. A posterior lateral approach to the right hip was then performed to a curvilinear incision centered over the greater trochanter but Sharp passes cut through subcutaneous tissue down to level the IT band gluteal fascia. The IT band gluteal fascia was incised longitudinally in line with skin incision. The underlying greater bursa was excised. The piriformis, external rotators, and posterior capsule were then released in the posterior aspect of the hip joint as a single layer. Great care was taken throughout the procedure to protect the sciatic nerve at all times. Hip was internally rotated and dislocated. Femoral neck osteotomy cut was made with Final Cut 14 mm above the lesser trochanter. Femoral head was removed and sent for pathology. The femur was retracted anteriorly. Attention drawn the acetabulum. The acetabular labrum was excised to the pulmonary fat was excised. Sequential reaming the acetabulum was then performed again with a size 47 and progressing up to a 55. I tried to place a 56 cup and had to ream first with a 56 reamer to get it in. A 56 mm Biomet G7 acetabular shell was then placed about 40 degrees lateral opening and 20 degrees of anteversion but was fixed with two 6.5 cancellus acetabular screws. A small anterior osteophyte was removed. A trial liner was placed. Attention down the femur. Impaired the proximal fusion with a cookie cutter followed by canal finder. I broached beginning with size 8 and progressing up to 12 to got excellent fit with a 12. I excused a calcar reamer to smooth off the calcar. I then trialed the hip in the +5 articular ball provided full stability in full extension and external rotation and flexion to 90 degrees internal rotation to 50 degrees. I like to place a dorantes posterior and inferior to maximize the stability in flexion. All trial implants were removed. An apex hole eliminator was placed but highly cross-link polyethylene liner with a dorantes placed inferior and posterior was impacted in position. A [place] Corail size 12 KLA femoral stem was impacted in position. +5/36 mm ceramic articular ball was placed. Hip was located once again found to be stable. Attention drawn toward closing. The wound was irrigated with copious amounts of pulsatile lavage solution. I did inject locally with 60 cc of half percent Marcaine with epinephrine. The posterior capsule and external rotators were then repaired through drill holes in the posterior trochanter as a single layer with #2 Tycron suture. The IT band gluteal fascia were pared with #1 PDS suture in running fashion with subtenons tissues then closed with 2 layers the deep layer #2 Vicryl suture in chowdhury bcutaneous tissues with 2 Dexon suture in a buried interrupted fashion the skin was closed skin emily. Leg was then cleaned dried and sterile dressing composed of Xeroform, 4 x 4's, ABD pad, foam tape were applied. Patient then transferred to the recovery room in stable condition. The patient tolerated the procedure well and there were no complications. All needle sponge counts are correct at the end the operation. I attest to the content of the Intraoperative Record and any orders documented therein. Any exceptions are noted below.
[2019-09-06] MEDS: ASCORBIC ACID 500 MG TAB PO SCH (18:14)
[2019-09-06] MEDS: FERROUS GLUCONATE 324 MG TAB PO SCH (18:14)
[2019-09-06] MEDS: FUROSEMIDE 40 MG TAB PO SCH (18:14)
[2019-09-06] MEDS: SPIRONOLACTONE 25 MG TAB PO SCH (19:22)
[2019-09-06] MEDS: SODIUM CHLORIDE 0.9% 1000ML 1,000 ML IV SCH ×2 (19:33→22:50)
[2019-09-06] MEDS: VANCOMYCIN HCL 2,000 MG in SODIUM CHLORIDE 0.9% 500 ML IV SCH (19:41)
[2019-09-06] MEDS ORDERED: ALBUTEROL 0.5% NEB SOLN 2.5 MG/0.5 ML VIAL NEB PRN (20:33)
[2019-09-06] MEDS ORDERED: FERROUS GLUCONATE 324 MG TAB PO SCH (21:00)
--- NOTE | 2019-09-06 21:05 | XRay Report ---
SINGLE VIEW CHEST CLINICAL HISTORY: Dyspnea and wheezing. FINDINGS: An AP, portable, upright chest radiograph is compared to study dated 08/22/2019. The examina tion is degraded by portable technique and apical lordotic positioning. The heart is mildly enlarged noting atherosclerotic calcification of the thoracic aorta. The pulmonary vasculature is noncongested . Chronic interstitial thickening is similar to previous. There is bibasilar scarring/atelectasis. No airspace consolidation or large pleural effusion is identified. No pneumothorax is seen. The skeleta l structures are osteopenic. The bony thorax is grossly intact. Degenerative change is noted in the t horacic spine. IMPRESSION: Cardiomegaly with no acute cardiopulmonary abnormality. Electronically signed by: Don Toledo M.D. 09/06/2019 9:04 PM
[2019-09-06] MEDS: ACETAMINOPHEN 500 MG TAB PO SCH (21:38)
[2019-09-06] MEDS ORDERED: TRANEXAMIC ACID 1,000 MG in 0.9 % SODIUM CHLORIDE 100 ML IV SCH (22:00)
--- NOTE | 2019-09-06 22:03 | Hospitalist Consultation ---
Date of Consultation September 06, 2019 Assessment & Plan (1) AVN (avascular necrosis of bone): S/P repair (2) Restrictive cardiomyopathy: patient curretly wheezing, however he sttes tjis is his baseline. patient denies being SOB at this time. Will resume home meds. will hold IV fluids as this may lead to fluid overload. . (3) GERD (gastroesophageal reflux disease): will resume home meds (4) Obesity hypoventilation syndrome: Patient does not want to use BIPAP here. (5) Status post left hip replacement: (6) CKD (chronic kidney disease), stage III: Continue to monitor on diuresis with Lasix as noted above along with spironolactone. (7) Hypertension: Continue home medications as noted, blood pressure has been stable (8) Obstructive sleep apnea: Patient refused BiPAP. Does not feel comfortable with our equipment. Plan to continue BiPAP once he returns home. (9) Depression: Stable , continue fluoxetine 40 mg p.o. every morning (10) Type 2 diabetes mellitus: Diet controlled. Hemoglobin A1c was 6.6. Continue atorvastatin 20 mg p.o. every afternoon. History of Present Illness Reason for Consultation: Medical Management for Type 2 diabetes Mellitus, Restrictive Cardiomyopathy, GERD, Requesting Physician: Dr. Shirley Attending Physician: Anand Restrepo MD History of Present Illness The patient is a 74-year-old gentleman who presents for surgical treatment of his right hip. He had p Right Total Hip Arthroplasty(Right). He has history of DM2, CKD 3, CHF exacerbation, CKD stage 3, HTN, oBSTRUCTIVE SLEEP APNEA, COPD, Patient currently is only complaining of pain in his surgcal site. He currently denies any fever, chills, nausea, vomiting. Patient states he is at his baseline Allergies Allergy/AdvReac Type Severity Reaction Status Date / Time adhesive tape Allergy Mild Redness of Verified 09/06/19 11:59 Skin Iodinated Contrast Media AdvReac Mild GI UPSET Verified 09/06/19 11:48 Home Medications Home Medications Medication Instructions Recorded Confirmed Type aspirin 81 mg PO QPM 11/20/18 09/06/19 History atorvastatin 20 mg PO QPM 11/20/18 09/06/19 History ferrous gluconate 324 mg PO BID 11/20/18 09/06/19 History fluoxetine [Prozac] 20 mg PO QPM 11/20/18 09/06/19 History fluoxetine [Prozac] 40 mg PO QAM 11/20/18 09/06/19 History metoprolol succinate [Toprol XL] 50 mg PO QPM 11/20/18 09/06/19 History metoprolol succinate [Toprol XL] 75 mg PO QAM 11/20/18 09/06/19 History omeprazole 20 mg PO QAM 11/20/18 09/06/19 History potassium chloride 40 meq PO QPM 11/20/18 09/06/19 History acetaminophen [Tylenol Extra 1,000 mg PO Q8 PRN #60 tab 11/29/18 09/06/19 Rx Strength] tramadol 50 mg PO DAILY PRN 03/04/19 09/06/19 History albuterol sulfate 2 puffs INH Q4H PRN #18 gm 03/07/19 09/06/19 Rx Breo Ellipta 1 inh INHALATION QAM 08/08/19 09/06/19 History spironolactone 50 mg PO BID 08/08/19 09/06/19 History furosemide 120 mg PO BID 08/20/19 09/06/19 History Patient History Medical History Anxiety and depression BPH (benign prostatic hyperplasia) Chronic diastolic heart failure, NYHA class 3 Degenerative disc disease GERD (gastroesophageal reflux disease) H/O deep venous thrombosis 5+ yrs ago s/p fall Hyperlipidemia Hypertension Morbid obesity Nonobstructive atherosclerosis of coronary artery Osteoarthritis Pulmonary emphysema Restrictive cardiomyopathy Sleep apnea BIPAP Surgical History Difficult intubation "Elective" glidescope noted on 08/2018 [facility] record History of arthroscopy RIGHT SHOULDER History of cardiac cath MULTIPLE (NO STENTS PLACED) MOST RECENT= 2018 History of cataract surgery RT/LEFT History of colonoscopy History of esophagogastroduodenoscopy (EGD) History of herniorrhaphy multiple History of open reduction and internal fixation (ORIF) procedure LEFT WRIST (HARDWARE REMOVED) 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) History of tooth extraction History of total knee replacement RIGHT/LEFT Hx of transurethral resection of prostate S/P cholecystectomy Status post total hip replacement, left Family History Mother Stroke Alzheimer disease Father MVA (motor vehicle accident) Social History Preferred Language: Italian Communication Ability: Effective Visual Impairment: No Limitations Clock And Watch Hands Painter Required: No Beliefs That Will Affect Care: None marital status: Current Living Situation: Spouse Other Information That Helps Us Care for You: No Feels Safe at Home: Yes Safety Concerns: Feels Safe At This Time Smoking Status: Former smoker Tobacco Type: cigarettes ; Cigarettes Per Day: HX OF 1-2 PPD X 10 YEARS, QUIT IN 1974 ; Do You Dip or Chew Tobacco: No ; Smoking End Date: 1974 ; Second Hand Exposure: No ; Tobacco Cessation Education Requested by Patient: No Hx Alcohol Use: No Hx Substance Use: No Review of Systems Review of Systems: All systems reviewed & are unremarkable except as noted in HPI & below Constitutional: no sweats, no malaise and no weight loss Eyes: no diplopia and no decreased night vision Ear, Nose, Mouth, Throat: no ear pain, no tinnitus and no dizziness Respiratory: + dyspnea Cardiovascular: no chest pain with activity, no paroxysmal nocturnal dyspnea and no syncope Gastrointestinal: no bloating and no nausea Genitourinary: no dysuria Integumentary: no rash and no non-healing lesions Neurologic: no localized weakness and no loss of sensation Psychiatric: no hopelessness and no change in appetite Endocrine: no fatigue Physical Exam Constitutional: WD/WN, vitals as above well developed and well nourished Eyes: PERRL, conjunctivae normal, anicteric sclerae ENMT: external ear and nose normal, oropharynx normal Neck: trachea midline, no thyromegaly Respiratory: Auscultation: + wheezes Cardiovascular: RRR, no murmur, no edema Gastrointestinal (Abdomen): normal bowel sounds, soft, nontender, no hepatosplenomegaly Musculoskeletal: no cyanosis or clubbing, extremities motor strength 5/5 Neurologic: PERRL, EOMI, accommodation nl, no face palsy, no dysarthria Psychiatric: A+Ox3, euthymic affect Lymphatic: no cervical or axillary lymphadenopathy Results & Data Vital Signs (Past 12 Hours) Vital Signs Temp Pulse Pulse Pulse Pulse Resp BP 09/06/19 21:33 39.3 C H 112 H 20 09/06/19 21:17 20 09/06/19 21:08 107 H 20 09/06/19 21:04 18 09/06/19 20:18 37.1 C 97 H 18 09/06/19 20:16 18 09/06/19 19:16 16 09/06/19 19:15 16 09/06/19 19:13 36.6 C 84 16 09/06/19 18:11 37.4 C 83 18 09/06/19 17:38 36.7 C 78 18 09/06/19 17:25 37 C 82 16 09/06/19 17:10 16 09/06/19 16:55 36.4 C L 78 19 09/06/19 16:47 101 H 121/88 09/06/19 16:45 99 H 14 09/06/19 16:35 95 H 15 09/06/19 16:25 104 H 22 09/06/19 16:15 97 H 10 L 09/06/19 16:09 36.0 C L 92 H 16 09/06/19 12:04 37.2 C 114 H 18 BP Pulse Ox 09/06/19 21:33 159/71 H 94 09/06/19 21:17 97 09/06/19 21:08 95 09/06/19 21:04 95 09/06/19 20:18 120/76 93 09/06/19 20:16 92 09/06/19 19:16 98 09/06/19 19:15 98 09/06/19 19:13 120/79 98 09/06/19 18:11 100/67 99 09/06/19 17:38 110/71 100 09/06/19 17:25 115/65 100 09/06/19 17:10 100 09/06/19 16:55 119/76 99 09/06/19 16:47 09/06/19 16:45 121/88 98 09/06/19 16:35 127/89 94 09/06/19 16:25 117/83 98 09/06/19 16:15 120/91 100 09/06/19 16:09 161/89 H 100 09/06/19 12:04 149/93 H 94 PG Care Time/CCT Total # of Minutes Spent Total Time Spent with Patient: Total time spent is greater than 50% in coordination of care (as documented) at patient's floor/unit and/or counseling patient: (1) Depression Active/Remission status: currently active Depression Type: major depressive disorder Major depression episode severity: unspecified Major depression recurrence: recurrent Qualified Code(s): F33.9 - Major depressive disorder, recurrent, unspecified (2) GERD (gastroesophageal reflux disease) Esophagitis presence: esophagitis presence not specified Qualified Code(s): K21.9 - Gastro-esophageal reflux disease without esophagitis (3) Hypertension Hypertension type: essential hypertension Qualified Code(s): I10 - Essential (primary) hypertension
[2019-09-06] MEDS ORDERED: LEVALBUTEROL HCL 1.25 MG/3 ML NEB NEB PRN (22:04)
[2019-09-06] MEDS: METOPROLOL SUCC 50MG EXT REL TAB PO SCH (22:09)
[2019-09-06] MEDS: ATORVASTATIN 20 MG TAB PO SCH (22:09)
[2019-09-06] MEDS: DOCUSATE SODIUM 100 MG CAP PO SCH (22:09)
[2019-09-06] MEDS: SENNA 8.6 MG TAB PO SCH (22:10)
[2019-09-06] MEDS: ASPIRIN 81 MG ECTAB PO SCH (22:10)
[2019-09-06] MEDS: FLUOXETINE HCL 20 MG CAP PO SCH (22:10)
[2019-09-06] MEDS: POTASSIUM CHLORIDE 20 MEQ TABCR PO SCH (22:10)
[2019-09-06] MEDS ORDERED: ACETAMINOPHEN 1,000 MG/100 ML VIAL IV PRN (22:12)
[2019-09-06] MEDS: CEFAZOLIN 2000MG 2,000 MG/15 ML SYR IV SCH (22:59)
[2019-09-06] MEDS ORDERED: ALBUT/IPRATROP 3MG/0.5MG NEB 3 ML VIAL NEB SCH (23:00)
[2019-09-06 23:47] LABS: Basophils # (auto) 0.03 K/uL (0-0.2); Basophils % (auto) 0.2 %; Eosinophils # (auto) 0.05 K/uL (0-0.5); Eosinophils % (auto) 0.4 %; Hematocrit (blood only) 36.1 % (42-52); Hemoglobin 10.9 g/dL (14.0-18.0); Immature Granulocytes # (auto) 0.05 K/uL (0.00-0.02); Immature Granulocytes % (auto) 0.4 %; Lymphocytes # (auto) 1.22 K/uL (1.2-3.4); Lymphocytes % (auto) 8.9 %; Mean Corpuscular Hemoglobin 26.6 pg (25-34); Mean Corpuscular Hgb Conc 30.2 g/dL (32-36); Mean Platelet Volume 9.8 fL (7.4-10.4); Monocytes # (auto) 1.73 K/uL (0.11-0.59); Monocytes % (auto) 12.6 %; Neutrophils # (auto) 10.67 K/uL (1.4-6.5); Neutrophils % (auto) 77.5 %; Platelet Count 293 K/uL (130-400); RDW Coefficient of Variation 15.2 % (11.5-14.5); RDW Standard Deviation 49.2 fL (36.4-46.3); White Blood Count 13.75 K/uL (4.8-10.8)
[2019-09-07 00:10] LABS: BUN Creatinine Ratio 9.8 (10-20); Calcium 9.4 mg/dl (8.5-10.1); Est GFR (African American) 42.9; Potassium 4.5 mmol/L (3.5-5.1)
[2019-09-07] MEDS: TRAMADOL HCL 50 MG TABLET PO PRN ×2 (03:58→10:43)
[2019-09-07] MEDS: CEFAZOLIN 2000MG 2,000 MG/15 ML SYR IV SCH ×2 (05:54→06:20)
[2019-09-07] MEDS: ACETAMINOPHEN 500 MG TAB PO SCH ×3 (05:54→22:29)
[2019-09-07] MEDS: HYDROmorphone INJ 0.5 MG/0.5 ML SYR IV PRN ×3 (06:20→16:27)
[2019-09-07 06:25] LABS: Appearance Urine Clear (Clear); Bacteria Urine Automated Negative (Negative); Bilirubin Urine Negative (Negative); Blood Urine 2+ (Negative); Color Urine Yellow; Glucose Urine UA Negative (Negative); Ketones Urine Negative (Negative); Leukocyte Esterase Urine 1+ (Negative); Nitrite Urine Negative (Negative); Protein Urine Trace (Negative); Specific Gravity Urine 1.025 (1.000-1.030); Urobilinogen Urine Negative (Negative)
--- NOTE | 2019-09-07 08:09 | Progress Note ---
DATE: 09/07/2019 SUBJECTIVE: A 74-year-old gentleman postop day 1 from right total hip replacement. He is doing pretty well. Having a moderate amount of pain. No chest pain or shortness of breath. Not feeling dizzy or lightheaded. OBJECTIVE: VITAL SIGNS: Temperature 37.3. Vital signs stable. GENERAL: Shows a pleasant, middle-aged male. He is sitting up in bed, looks pretty comfortable. Looks about his baseline. Does not appear in distress. EXTREMITIES: Examination of the right hip reveals the leg lengths to be equal. Dressing is clean, dry and intact. Thigh is soft and supple. Hip is located. He is neurologically intact. LABORATORY DATA: Hemoglobin is 10.9. Hematocrit is 36.1. White cell count 13.75. Electrolytes are pretty stable. He has got some elevated creatinine, baseline. ASSESSMENT: A 74-year-old gentleman with multiple medical comorbidities postop day 1 from a right total hip replacement done for avascular necrosis. He is doing okay. A moderate amount of pain. Hip is located. He is neurologically intact. PLAN: 1. DVT prophylaxis including thigh-high TEDs, SCDs, and aspirin twice a day. 2. PT/OT. Weight bear as tolerated. Right total hip protocol. 3. Pain control, doing okay with current pain regimen. Unfortunately, he cannot take NSAIDs due to his underlying renal dysfunction. We will continue to use a low level narcotics and Tylenol. 4. Disposition: He is hoping to be discharged home with some home health once medically stable and adequately recovered and pain is under control.
[2019-09-07] MEDS ORDERED: DC INTRASPINAL MORPHINE ONE (08:17)
[2019-09-07] MEDS: FERROUS GLUCONATE 324 MG TAB PO SCH ×2 (09:35→17:42)
[2019-09-07] MEDS: SPIRONOLACTONE 25 MG TAB PO SCH ×2 (09:36→20:11)
[2019-09-07] MEDS: ASCORBIC ACID 500 MG TAB PO SCH ×2 (09:36→17:42)
[2019-09-07] MEDS: DOCUSATE SODIUM 100 MG CAP PO SCH ×2 (09:37→20:10)
[2019-09-07] MEDS: FUROSEMIDE 40 MG TAB PO SCH ×2 (09:37→19:19)
[2019-09-07] MEDS: MULTIVITAMIN TAB PO SCH (09:38)
[2019-09-07] MEDS: PANTOprazole 40 MG TAB PO SCH (09:38)
[2019-09-07] MEDS: ASPIRIN 81 MG ECTAB PO SCH ×2 (09:38→20:10)
[2019-09-07] MEDS: FLUOXETINE HCL 20 MG CAP PO SCH ×2 (09:39→20:10)
[2019-09-07] MEDS: METOPROLOL SUCC 25MG EXT REL TAB PO SCH (09:40)
[2019-09-07] MEDS: VANCOMYCIN HCL 2,000 MG in SODIUM CHLORIDE 0.9% 500 ML IV SCH (10:44)
[2019-09-07 10:56] LABS: Basophils # (auto) 0.01 K/uL (0-0.2); Basophils % (auto) 0.1 %; Eosinophils # (auto) 0.05 K/uL (0-0.5); Eosinophils % (auto) 0.3 %; Hematocrit (blood only) 34.8 % (42-52); Hemoglobin 10.7 g/dL (14.0-18.0); Immature Granulocytes # (auto) 0.07 K/uL (0.00-0.02); Immature Granulocytes % (auto) 0.5 %; Lymphocytes % (auto) 12.1 %; Mean Corpuscular Hemoglobin 27.2 pg (25-34); Mean Corpuscular Hgb Conc 30.7 g/dL (32-36); Mean Corpuscular Volume 88.5 fL (80-100); Mean Platelet Volume 9.8 fL (7.4-10.4); Monocytes # (auto) 2.08 K/uL (0.11-0.59); Neutrophils # (auto) 10.83 K/uL (1.4-6.5); Platelet Count 262 K/uL (130-400); RDW Coefficient of Variation 15.3 % (11.5-14.5); RDW Standard Deviation 49.8 fL (36.4-46.3); Red Blood Count 3.93 M/uL (4.7-6.1); White Blood Count 14.84 K/uL (4.8-10.8)
[2019-09-07 11:30] LABS: Calcium 9.2 mg/dl (8.5-10.1); Creatinine Clr Calc Pharmacy 52.1 ml/min; Est GFR (African American) 42.1; Est GFR (Non-African American) 36.3; Potassium 4.7 mmol/L (3.5-5.1)
--- NOTE | 2019-09-07 14:40 | Anesthesiology Progress Note ---
Date of Service September 07, 2019 Anesthesia Post Procedure Vital Signs Vital Signs: Temp Pulse Pulse Pulse Resp BP BP 09/07/19 08:14 37.6 C H 98 H 18 119/78 09/07/19 06:37 09/07/19 06:36 102 H 20 106/67 09/07/19 06:15 22 09/07/19 05:15 18 09/07/19 04:15 18 09/07/19 04:12 18 09/07/19 03:37 37.3 C 92 H 18 114/75 09/07/19 03:12 18 09/07/19 02:15 16 09/07/19 01:15 16 09/07/19 00:15 19 09/06/19 23:16 37.6 C H 111 H 16 110/72 09/06/19 23:15 18 09/06/19 22:16 18 09/06/19 21:33 39.3 C H 112 H 20 159/71 H 09/06/19 21:17 20 09/06/19 21:08 107 H 20 09/06/19 21:04 18 09/06/19 20:18 37.1 C 97 H 18 120/76 09/06/19 20:16 18 09/06/19 19:16 16 09/06/19 19:15 16 09/06/19 19:13 36.6 C 84 16 120/79 09/06/19 18:11 37.4 C 83 18 100/67 09/06/19 17:38 36.7 C 78 18 110/71 09/06/19 17:25 37 C 82 16 115/65 09/06/19 17:10 16 09/06/19 16:55 36.4 C L 78 19 119/76 09/06/19 16:47 101 H 121/88 09/06/19 16:45 99 H 14 121/88 09/06/19 16:35 95 H 15 127/89 09/06/19 16:25 104 H 22 117/83 09/06/19 16:15 97 H 10 L 120/91 09/06/19 16:09 36.0 C L 92 H 16 161/89 H Pulse Ox 09/07/19 08:14 94 09/07/19 06:37 92 09/07/19 06:36 88 L 09/07/19 06:15 90 09/07/19 05:15 94 09/07/19 04:15 95 09/07/19 04:12 95 09/07/19 03:37 97 09/07/19 03:12 98 09/07/19 02:15 98 09/07/19 01:15 99 09/07/19 00:15 99 09/06/19 23:16 97 09/06/19 23:15 95 09/06/19 22:16 96 09/06/19 21:33 94 09/06/19 21:17 97 09/06/19 21:08 95 09/06/19 21:04 95 09/06/19 20:18 93 09/06/19 20:16 92 09/06/19 19:16 98 09/06/19 19:15 98 09/06/19 19:13 98 09/06/19 18:11 99 09/06/19 17:38 100 09/06/19 17:25 100 09/06/19 17:10 100 09/06/19 16:55 99 09/06/19 16:47 09/06/19 16:45 98 09/06/19 16:35 94 09/06/19 16:25 98 09/06/19 16:15 100 09/06/19 16:09 100 Pain Intensity Right Hip: Pain Intensity: 5 Notes Mental Status: alert / awake / arousable Patient Amnestic to Procedure: Yes Nausea / Vomiting: adequately controlled Pain: adequately controlled Airway Patency, RR, SpO2: stable & adequate BP & HR: stable & adequate Hydration State: stable & adequate Anesthetic Complications: no major complications apparent and Pt Satisfied with anesthetic care
[2019-09-07] MEDS ORDERED: FUROSEMIDE 80 MG in SYRINGE 0 ML IV ONE (16:00)
[2019-09-07] MEDS ORDERED: LEVALBUTEROL 1.25MG/0.5ML NEB NEB SCH (19:00)
[2019-09-07] MEDS ORDERED: AZITHROMYCIN 500 MG in DEXTROSE 5% 250 ML IV STA (19:09)
[2019-09-07] MEDS ORDERED: methylPREDNISolone 40 MG in SYRINGE 0 ML IV ONE (19:45)
[2019-09-07] MEDS: cefTRIAXone SODIUM 2,000 MG in DEXTROSE 5% 50 ML IV SCH (20:03)
[2019-09-07] MEDS: METOPROLOL SUCC 50MG EXT REL TAB PO SCH (20:10)
[2019-09-07] MEDS: POTASSIUM CHLORIDE 20 MEQ TABCR PO SCH (20:10)
[2019-09-07] MEDS: ATORVASTATIN 20 MG TAB PO SCH (20:10)
[2019-09-07] MEDS: SENNA 8.6 MG TAB PO SCH (20:10)
--- NOTE | 2019-09-07 22:41 | Hospitalist Progress Note ---
Date of Service September 07, 2019 Assessment & Plan (1) COPD exacerbation: Initially, treated for acute CHF due to patient receiving IVFs. However, he did not improve with Lasix IV 80 mg. Will treat for COPD exacerbation. Will give ceftriaxone and azithromycin for [address] on prendisone and xopenex. rad monitor tomorrow for improvement. (2) Restrictive cardiomyopathy: Will resume home meds. Did a trial of IV lasix with no improvement. Patient did receive some IVF after surgery, but doubt that he was in acute heart failure. will hold IV fluids as this may lead to fluid overload. . (3) GERD (gastroesophageal reflux disease): will continue PPI (4) Obesity hypoventilation syndrome: Patient refused BIPAP. (5) Status post left hip replacement: (6) CKD (chronic kidney disease), stage III: Continue to monitor on diuresis with Lasix as noted above along with spironolactone. (7) Hypertension: Continue home medications as noted, blood pressure has been stable (8) Obstructive sleep apnea: Patient refused BiPAP. Does not feel comfortable with our equipment. Plan to continue BiPAP once he returns home. (9) Depression: Stable , continue fluoxetine 40 mg p.o. every morning (10) Type 2 diabetes mellitus: Diet controlled. Hemoglobin A1c was 6.6. Continue atorvastatin 20 mg p.o. every afternoon. Subjective 74 yo male reports no improvement after receiving IV fluids. Overnight, patient was having SOB like an hour after I saw him, and had a fever. Review of Systems Review of Systems: All systems reviewed & are unremarkable except as noted in HPI & below Physical Exam Physical Exam: Constitutional: WD/WN, vitals as above well developed and well nourished Eyes: PERRL, conjunctivae normal, anicteric sclerae ENMT: external ear and nose normal, oropharynx normal Neck: trachea midline, no thyromegaly Respiratory: Auscultation: + bilateral wheezing Cardiovascular: RRR, no murmur, no edema Gastrointestinal (Abdomen): normal bowel sounds, soft, nontender, no hepatosplenomegaly Musculoskeletal: no cyanosis or clubbing, extremities motor strength 5/5 Neurologic: PERRL, EOMI, accommodation nl, no face palsy, no dysarthria Psychiatric: A+Ox3, euthymic affect Lymphatic: no cervical or axillary lymphadenopathy Results & Data Vital Signs (Past 12 Hours) Vital Signs Temp Pulse Pulse Resp BP BP Pulse Ox 09/07/19 19:40 37.9 C H 80 121/70 09/07/19 17:54 83 16 97 09/07/19 15:34 37.9 C H 108 H 17 101/64 PG Care Time/CCT Total # of Minutes Spent Total Time Spent with Patient: Total time spent is greater than 50% in coordination of care (as documented) at patient's floor/unit and/or counseling patient: (1) Depression Active/Remission status: currently active Depression Type: major depressive disorder Major depression episode severity: unspecified Major depression recurrence: recurrent Qualified Code(s): F33.9 - Major depressive disorder, recurrent, unspecified (2) GERD (gastroesophageal reflux disease) Esophagitis presence: esophagitis presence not specified Qualified Code(s): K21.9 - Gastro-esophageal reflux disease without esophagitis (3) Hypertension Hypertension type: essential hypertension Qualified Code(s): I10 - Essential (primary) hypertension
[2019-09-08] MEDS: LEVALBUTEROL HCL 1.25 MG/3 ML NEB NEB SCH ×4 (01:07→20:04)
[2019-09-08] MEDS: ACETAMINOPHEN 500 MG TAB PO SCH ×3 (05:59→21:41)
--- NOTE | 2019-09-08 08:13 | Progress Note ---
DATE: 09/08/2019 SUBJECTIVE: A 74-year-old gentleman postop day 2 from right hip replacement. He is doing okay. Had a moderate amount of pain. He has been up and walking some but requiring quite a bit of assistance. No chest pain or shortness of breath. Not feeling dizzy or lightheaded. OBJECTIVE: VITAL SIGNS: Temperature 36.7. Vital signs stable. GENERAL: Shows a pleasant elderly male. He is sitting up in bed, looks reasonably comfortable. Looks at his baseline. EXTREMITIES: Examination of the right hip and leg reveals some very mild swelling of his thigh. His thigh is soft and supple. Hip is located. Leg lengths are equal. He is neurologically intact. ASSESSMENT: A 74-year-old gentleman postop day 2 from right hip replacement, doing okay. He is on pain medicine before and having a decent amount of pain with mobilization which is not anything out of the ordinary. His hip is located. He is neurologically intact. He is having quite a bit of difficulty getting around independently. He is a fairly large gentleman, does not have much help at home. PLAN: 1. DVT prophylaxis including thigh-high TEDs, SCDs, and aspirin twice a day. 2. PT/OT. Weight bear as tolerated. Right total hip protocol. 3. Pain control, doing okay with current pain regimen. 4. Disposition. He has decided he wants to go to rehab. His is going to help him at home. He is a fairly large gentleman. She has got some underlying cardiac issues and doesn't think she can manage him at home at this time.. RICHARD
[2019-09-08] MEDS: ASCORBIC ACID 500 MG TAB PO SCH ×2 (09:07→17:33)
[2019-09-08] MEDS: FUROSEMIDE 40 MG TAB PO SCH ×2 (09:07→17:32)
[2019-09-08] MEDS: METOPROLOL SUCC 25MG EXT REL TAB PO SCH (09:07)
[2019-09-08] MEDS: DOCUSATE SODIUM 100 MG CAP PO SCH ×2 (09:08→21:14)
[2019-09-08] MEDS: SPIRONOLACTONE 25 MG TAB PO SCH ×2 (09:08→17:34)
[2019-09-08] MEDS: MULTIVITAMIN TAB PO SCH (09:08)
[2019-09-08] MEDS: ASPIRIN 81 MG ECTAB PO SCH ×2 (09:08→21:12)
[2019-09-08] MEDS: PANTOprazole 40 MG TAB PO SCH (09:08)
[2019-09-08] MEDS: FLUOXETINE HCL 20 MG CAP PO SCH ×2 (09:08→21:12)
[2019-09-08] MEDS: FERROUS GLUCONATE 324 MG TAB PO SCH ×2 (09:09→17:33)
[2019-09-08] MEDS: TRAMADOL HCL 50 MG TABLET PO PRN ×2 (09:11→16:02)
[2019-09-08] MEDS: HYDROmorphone INJ 0.5 MG/0.5 ML SYR IV PRN (14:01)
[2019-09-08] MEDS: AZITHROMYCIN 250 MG TAB PO SCH (16:06)
[2019-09-08] MEDS: cefTRIAXone SODIUM 2,000 MG in DEXTROSE 5% 50 ML IV SCH (20:17)
[2019-09-08] MEDS: ATORVASTATIN 20 MG TAB PO SCH (21:12)
[2019-09-08] MEDS: SENNA 8.6 MG TAB PO SCH (21:14)
[2019-09-08] MEDS: POTASSIUM CHLORIDE 20 MEQ TABCR PO SCH (21:15)
[2019-09-08] MEDS: METOPROLOL SUCC 50MG EXT REL TAB PO SCH (21:17)
[2019-09-08] MEDS ORDERED: CYCLOBENZAPRINE HCL 10 MG TAB PO STA (21:24)
--- NOTE | 2019-09-08 22:09 | Hospitalist Progress Note ---
Date of Service September 08, 2019 Assessment & Plan (1) COPD exacerbation: Initially, treated for acute CHF due to patient receiving IVFs. However, he did not improve with Lasix IV 80 mg. Treated for COPD exacerbation. On day 2 of 5 of ceftriaxone and azithromycin; (first dose on 09/07). Will also place on predisone and xopenex. will recommend quit taper as patient no longer is wheezing. Ordered 40 mg on 09/09, may titrate to 20 mg x2 days after and stop. (2) Restrictive cardiomyopathy: Will resume home meds. Did a trial of IV lasix with no improvement. Patient did receive some IVF after surgery, but doubt that he was in acute heart failure. will hold IV fluids as this may lead to fluid overload. . (3) GERD (gastroesophageal reflux disease): will continue PPI (4) Obesity hypoventilation syndrome: Patient refused BIPAP. (5) Status post left hip replacement: (6) CKD (chronic kidney disease), stage III: Continue to monitor on diuresis with Lasix as noted above along with spironolactone. (7) Hypertension: Continue home medications as noted, blood pressure has been stable (8) Obstructive sleep apnea: Patient refused BiPAP. Does not feel comfortable with our equipment. Plan to continue BiPAP once he re turns home. (9) Depression: Stable , continue fluoxetine 40 mg p.o. every morning (10) Type 2 diabetes mellitus: Diet controlled. Hemoglobin A1c was 6.6. Continue atorvastatin 20 mg p.o. every afternoon. Dispo: Per primary service. DVT per primary service. Medicine will continue to follow patient Subjective Patient reports feeling much better in regards to his breathing. Patient states that he feels weak and is interesting in going to rehab. Review of Systems Review of Systems: All systems reviewed & are unremarkable except as noted in HPI & below Physical Exam Constitutional: WD/WN, vitals as above well developed and well nourished Eyes: PERRL, conjunctivae normal, anicteric sclerae ENMT: external ear and nose normal, oropharynx normal Neck: trachea midline, no thyromegaly Respiratory: normal respiratory effort, lungs clear to auscultation Cardiovascular: RRR, no murmur, no edema Gastrointestinal (Abdomen): normal bowel sounds, soft, nontender, no hepatosplenomegaly Musculoskeletal: no cyanosis or clubbing, extremities motor strength 5/5 Neurologic: PERRL, EOMI, accommodation nl, no face palsy, no dysarthria Psychiatric: A+Ox3, euthymic affect Lymphatic: no cervical or axillary lymphadenopathy Results & Data Vital Signs (Past 12 Hours) Vital Signs Temp Pulse Pulse Resp BP BP Pulse Ox 09/08/19 21:18 85 114/67 09/08/19 20:04 78 18 99 09/08/19 15:45 36.9 C 87 18 114/64 92 09/08/19 13:42 87 18 95 PG Care Time/CCT Total # of Minutes Spent Total Time Spent with Patient: Total time spent is greater than 50% in coordination of care (as documented) at patient's floor/unit and/or counseling patient: (1) Depression Active/Remission status: currently active Depression Type: major depressive disorder Major depression episode severity: unspecified Major depression recurrence: recurrent Qualified Code(s): F33.9 - Major depressive disorder, recurrent, unspecified (2) GERD (gastroesophageal reflux disease) Esophagitis presence: esophagitis presence not specified Qualified Code(s): K21.9 - Gastro-esophageal reflux disease without esophagitis (3) Hypertension Hypertension type: essential hypertension Qualified Code(s): I10 - Essential (primary) hypertension
[2019-09-09] MEDS: LEVALBUTEROL HCL 1.25 MG/3 ML NEB NEB SCH ×3 (00:30→14:05)
[2019-09-09] MEDS: ACETAMINOPHEN 500 MG TAB PO SCH ×3 (05:40→21:01)
[2019-09-09] MEDS: TRAMADOL HCL 50 MG TABLET PO PRN ×2 (05:40→11:30)
--- NOTE | 2019-09-09 08:21 | Progress Note ---
DATE: 09/09/2019 SUBJECTIVE: A 74-year-old gentleman postop day 3 from a right total hip replacement. He seems to be doing a bit better this morning. Pain seemed to be improved. No new complaints. No chest pain or shortness of breath. Not feeling dizzy or lightheaded. OBJECTIVE: VITAL SIGNS: Temperature 37.2. Vital signs stable. GENERAL: Reveals a healthy, pleasant 74-year-old male. He is sitting up in bed, and looks pretty comfortable. He is doing a breathing treatment currently. He looks comfortable. EXTREMITIES: Examination of the right hip reveals incision to be clean, dry and intact. Thigh is soft and supple. No drainage. Hip is located. He is neurologically intact. ASSESSMENT: A 74-year-old gentleman postop day 3 from a right total hip replacement, doing better. Pain seems to be better controlled. Hip is located. He is neurologically intact. No other symptoms. PLAN: 1. DVT prophylaxis including thigh-high TEDs, SCDs, and aspirin twice a day. 2. PT/OT. Weight bear as tolerated. Right total hip protocol. 3. Pain control, doing well with current pain regimen. 4. Disposition: He is going to be discharged with getting social service manager involved. He is planning on going home with home health, but does not feel like he is getting around well enough and his is not able to assist him. We will look into rehab options. Social service is working on that this morning.
[2019-09-09] MEDS: predniSONE 20 MG TAB PO SCH (08:39)
[2019-09-09] MEDS: ASCORBIC ACID 500 MG TAB PO SCH ×2 (08:40→16:18)
[2019-09-09] MEDS: SPIRONOLACTONE 25 MG TAB PO SCH ×2 (08:40→16:18)
[2019-09-09] MEDS: FUROSEMIDE 40 MG TAB PO SCH ×2 (08:40→16:18)
[2019-09-09] MEDS: PANTOprazole 40 MG TAB PO SCH (08:41)
[2019-09-09] MEDS: ASPIRIN 81 MG ECTAB PO SCH ×2 (08:41→21:03)
[2019-09-09] MEDS: METOPROLOL SUCC 25MG EXT REL TAB PO SCH (08:41)
[2019-09-09] MEDS: FERROUS GLUCONATE 324 MG TAB PO SCH ×2 (08:41→16:16)
[2019-09-09] MEDS: DOCUSATE SODIUM 100 MG CAP PO SCH ×2 (08:41→21:03)
[2019-09-09] MEDS: AZITHROMYCIN 250 MG TAB PO SCH (08:41)
[2019-09-09] MEDS: MULTIVITAMIN TAB PO SCH (08:42)
[2019-09-09] MEDS: FLUOXETINE HCL 20 MG CAP PO SCH ×2 (08:42→21:04)
[2019-09-09 08:48] LABS: Basophils # (auto) 0.02 K/uL (0-0.2); Basophils % (auto) 0.1 %; Eosinophils # (auto) 0.71 K/uL (0-0.5); Eosinophils % (auto) 4.4 %; Hematocrit (blood only) 33.8 % (42-52); Hemoglobin 10.5 g/dL (14.0-18.0); Immature Granulocytes # (auto) 0.08 K/uL (0.00-0.02); Immature Granulocytes % (auto) 0.5 %; Lymphocytes # (auto) 2.77 K/uL (1.2-3.4); Lymphocytes % (auto) 17.4 %; Mean Corpuscular Hemoglobin 26.7 pg (25-34); Mean Corpuscular Hgb Conc 31.1 g/dL (32-36); Monocytes # (auto) 1.61 K/uL (0.11-0.59); Monocytes % (auto) 10.1 %; Neutrophils # (auto) 10.77 K/uL (1.4-6.5); Neutrophils % (auto) 67.5 %; Platelet Count 296 K/uL (130-400); RDW Standard Deviation 47.4 fL (36.4-46.3); Red Blood Count 3.93 M/uL (4.7-6.1); White Blood Count 15.96 K/uL (4.8-10.8)
--- NOTE | 2019-09-09 09:21 | XRay Report ---
XR chest 2V PA/lateral CLINICAL HISTORY: 74 years-old Male presenting with CHF, shortness of breath, wheezing ?PNA. TECHNIQUE: PA and lateral views of the chest were obtained. COMPARISON: 09/06/2019. FINDINGS: Atherosclerosis of the aortic arch. Cardiac silhouette mildly enlarged. Pulmonary vasculature is less prominent than on the prior exam. No focal opacity. No large effusion or pneumothorax. Mild scoliosi s. Upper abdomen normal. IMPRESSION: 1. Cardiomegaly. No volume overload or congestive change. Electronically signed by: Antonio Ha M.D. 09/09/2019 9:20 AM
[2019-09-09 09:32] LABS: Albumin Globulin Ratio 0.5 (0.9-2); Albumin Level 2.5 gm/dl (3.4-5.0); BUN Creatinine Ratio 13.7 (10-20); Bilirubin,Total 0.3 mg/dl (0.2-1); Calcium 10.3 mg/dl (8.5-10.1); Creatinine Clr Calc Pharmacy 57.1 ml/min; Est GFR (Non-African American) 40.6; Globulin 4.9 gm/dl (2.5-4.0); Magnesium 2.2 mg/dl (1.8-2.4); Potassium 3.9 mmol/L (3.5-5.1); Total Protein 7.4 gm/dl (6.4-8.2)
[2019-09-09] MEDS ORDERED: LEVALBUTEROL HCL 1.25 MG/3 ML NEB NEB PRN (15:31)
--- NOTE | 2019-09-09 15:44 | Hospitalist Progress Note ---
Date of Service September 09, 2019 Assessment & Plan (1) Status post right hip replacement: POD #2. Pain control and DVT prophylaxis as per primary team. Awaiting rehabilitation bed. (2) COPD exacerbation: No pneumonia on CXR or auscultation to warrant ceftriaxone Continue prednisone and azithromycin for total 5 days then stop Continue nebulizers. (3) Constipation: Secondary to operation, pain medication, immobility. Likely affecting his breathing. MiraLAX now then daily PRN, reassess in AM. (4) Restrictive cardiomyopathy: Trial of IV lasix with no improvement. No acute pulmonary edema on CXR. (5) GERD (gastroesophageal reflux disease): Continue PPI (6) Obesity hypoventilation syndrome: Patient refused BIPAP. (7) CKD (chronic kidney disease), stage III: Stable. Continue to monitor periodically while admitted. (8) Hypertension: Continue current home meds. Cr stable. (9) Obstructive sleep apnea: Suspect refusal of BiPAP also contributing towards his shortness of breath. Will resume his home equipment on d/c. Encouraged to bring this in if admitted to hospital again. (10) Depression: Stable , continue fluoxetine 40 mg p.o. every morning (11) Type 2 diabetes mellitus: Diet controlled (12) Discharge planning issues: He is medically stable for discharge pending surgical discharge and placement Recommend prednisone 40mg PO daily and azithromycin 250mg PO daily for total of 5 days Subjective Comfortable in bed. No acute events overnight. Awaiting placement at this time. Reports ongoing shortness of breath and cough however he feels it is improving with steroids given and nebulizer treatments. He also feels it may be worse as he hasn't yet moved his bowels since . Review of Systems Review of Systems: All systems reviewed & are unremarkable except as noted in HPI & below Physical Exam Constitutional: WD/WN, vitals as above Eyes: + anicteric sclerae; pupils not irregular ENMT: external ear and nose normal, oropharynx normal Neck: trachea midline Respiratory: normal respiratory effort; no respiratory distress, no labored breathing, no retractions and does not use accessory muscles Auscultation: + wheezes (end expiratory, b/l) Cardiovascular: RRR, no murmur, no edema Gastrointestinal (Abdomen): normal bowel sounds, soft, nontender, no hepatosplenomegaly Inspection/Auscultation: + abdomen distended Musculoskeletal: no cyanosis or clubbing, extremities motor strength 5/5 Neurologic: PERRL, EOMI, accommodation nl, no face palsy, no dysarthria Psychiatric: A+Ox3, euthymic affect Lymphatic: no cervical or axillary lymphadenopathy Results & Data Vital Signs (Past 12 Hours) Vital Signs Temp Pulse Pulse Pulse Resp BP BP 09/09/19 15:37 98.6 F 80 85 95 H 18 114/67 135/77 09/09/19 15:09 98.6 F 95 H 18 135/77 09/09/19 14:05 90 16 09/09/19 07:53 98.4 F 81 16 99/64 L 09/09/19 07:21 83 16 09/09/19 06:00 99.0 F 86 16 119/76 Pulse Ox 09/09/19 15:37 95 09/09/19 15:09 95 09/09/19 14:05 93 09/09/19 07:53 90 09/09/19 07:21 92 09/09/19 06:00 92 PG Care Time/CCT Total # of Minutes Spent Total Time Spent with Patient: Total time spent is greater than 50% in coordination of care (as documented) at patient's floor/unit and/or counseling patient: (1) Depression Active/Remission status: currently active Depression Type: major depressive disorder Major depression episode severity: unspecified Major depression recurrence: recurrent Qualified Code(s): F33.9 - Major depressive disorder, recurrent, unspecified (2) GERD (gastroesophageal reflux disease) Esophagitis presence: esophagitis presence not specified Qualified Code(s): K21.9 - Gastro-esophageal reflux disease without esophagitis (3) Hypertension Hypertension type: essential hypertension Qualified Code(s): I10 - Essential (primary) hypertension
[2019-09-09] MEDS ORDERED: POLYETHYLENE (MIRALAX) 17 GM PACK PO STA (16:25)
[2019-09-09] MEDS: IPRATROPIUM BROMIDE NEB SOLN 0.02% 2.5 ML VIAL INH SCH ×2 (16:44→19:42)
[2019-09-09] MEDS: LEVALBUTEROL HCL 0.63 MG/3 ML NEB NEB SCH ×2 (16:44→19:43)
[2019-09-09] MEDS ORDERED: XOPENEX/ATROVENT 0.63mg/0.5MG NEB COMBO NEB SCH (17:00)
[2019-09-09] MEDS: ATORVASTATIN 20 MG TAB PO SCH (21:02)
[2019-09-09] MEDS: METOPROLOL SUCC 50MG EXT REL TAB PO SCH (21:02)
[2019-09-09] MEDS: SENNA 8.6 MG TAB PO SCH (21:03)
[2019-09-09] MEDS: POTASSIUM CHLORIDE 20 MEQ TABCR PO SCH (21:04)
[2019-09-10] MEDS: IPRATROPIUM BROMIDE NEB SOLN 0.02% 2.5 ML VIAL INH SCH ×3 (00:58→14:03)
[2019-09-10] MEDS: LEVALBUTEROL HCL 0.63 MG/3 ML NEB NEB SCH ×3 (00:58→14:03)
[2019-09-10] MEDS: ACETAMINOPHEN 500 MG TAB PO SCH ×2 (05:29→13:24)
[2019-09-10 07:51] LABS: BUN Creatinine Ratio 15.8 (10-20); Calcium 9.9 mg/dl (8.5-10.1); Creatinine Clr Calc Pharmacy 65.4 ml/min; Est GFR (African American) 55.4; Est GFR (Non-African American) 47.8; Potassium 4.3 mmol/L (3.5-5.1)
[2019-09-10] MEDS: ASCORBIC ACID 500 MG TAB PO SCH (07:57)
[2019-09-10] MEDS: FERROUS GLUCONATE 324 MG TAB PO SCH (07:58)
[2019-09-10] MEDS: ASPIRIN 81 MG ECTAB PO SCH (09:21)
[2019-09-10] MEDS: SPIRONOLACTONE 25 MG TAB PO SCH (09:21)
[2019-09-10] MEDS: DOCUSATE SODIUM 100 MG CAP PO SCH (09:21)
[2019-09-10] MEDS: PANTOprazole 40 MG TAB PO SCH (09:22)
[2019-09-10] MEDS: MULTIVITAMIN TAB PO SCH (09:22)
[2019-09-10] MEDS: FUROSEMIDE 40 MG TAB PO SCH (09:22)
[2019-09-10] MEDS: predniSONE 20 MG TAB PO SCH (09:22)
[2019-09-10] MEDS: AZITHROMYCIN 250 MG TAB PO SCH (09:23)
[2019-09-10] MEDS: FLUOXETINE HCL 20 MG CAP PO SCH (09:23)
[2019-09-10] MEDS: METOPROLOL SUCC 25MG EXT REL TAB PO SCH (09:23)
[2019-09-10] MEDS: TRAMADOL HCL 50 MG TABLET PO PRN (11:33)
--- NOTE | 2019-09-10 12:34 | Hospitalist Progress Note ---
Date of Service September 10, 2019 Subjective Patient reports ongoing cough but improvement with shortness of breath and heartburn. Results & Data Vital Signs (Past 12 Hours) Vital Signs Temp Pulse Pulse Resp BP Pulse Ox 09/10/19 07:39 98.2 F 74 18 135/83 95 09/10/19 07:08 74 16 95 PG Care Time/CCT Total # of Minutes Spent Total Time Spent with Patient: Total time spent is greater than 50% in coordination of care (as documented) at patient's floor/unit and/or counseling patient:
--- NOTE | 2019-09-11 22:52 | Discharge Summary ---
ADMITTING PHYSICIAN AND SURGEON: Dr. Anand Restrepo. ADMITTING DIAGNOSIS: Right hip degenerative joint disease. SURGERY PERFORMED: Right total hip arthroplasty. SECONDARY DIAGNOSES: Heart disease, congestive heart failure, hypertension, elevated cholesterol, COPD, sleep apnea, anxiety, depression, obesity, back pain, sciatica, gastroesophageal reflux disease, hiatal hernia, benign prostatic hypertrophy. CONSULTS: Dr. Joyce Restrepo, hospitalist service for medical management. HISTORY AND PHYSICAL EXAMINATION: Well documented in the patient's chart. HOSPITAL COURSE: The patient was admitted on 09/06/2019, underwent total hip arthroplasty, tolerated the procedure well. There were no complications. He was transferred to the PACU postoperatively and later to the orthopedic floor for further care. He was given Ancef for antibiotic prophylaxis, HARI stockings, SCDs and aspirin for DVT prophylaxis. Hemoglobin, hematocrit and vital signs were monitored during his hospital stay and remained stable, did not require any blood transfusions. He did have COPD exacerbation during his hospital stay, was given prednisone as well as azithromycin and nebulizer treatments. He was followed by the hospitalist service throughout his stay. By postoperative day #4, he was tolerating a regular diet, pain was controlled with oral pain medicine. He was participating in physical therapy. By postop day #4, he was transferred to a rehab facility. He was given printed discharge instructions as well as new prescriptions for Tylenol, albuterol, aspirin, azithromycin, ipratropium, bromide, prednisone and tramadol. Continue his home medicines. Continue physical therapies, weightbearing as tolerated, HARI stockings, total hip precautions. Follow up approximately 2 weeks postop or sooner if there are any problems or concerns.
== END 2019-09-10 16:34 | DRG 470 ==
LOC: ASU 10:51 → 3E 17:18

== ENCOUNTER 2022-01-20 16:12 | Inpatient (IN) ==
--- NOTE | 2022-01-20 16:34 | XRay Report ---
XR chest 1V portable CLINICAL HISTORY: Atypical chest pain. COMPARISON STUDY: Chest CT September 20, 2019. Chest radiograph January 13, 2022. FINDINGS: Lung volumes are normal. Lungs are clear. There is no pneumothorax or pleural effusion. Car diomegaly is unchanged. Mediastinal contours are normal. There is no evidence for pulmonary edema. IMPRESSION: No acute cardiopulmonary findings. Cardiomegaly. ACT 112: Negative or not required by law. Electronically signed by: Sha Fuentes M.D. 01/20/2022 4:33 PM
--- NOTE | 2022-01-20 16:45 | Emergency Department Note ---
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 The patient has a known history of chronic CHF and diastolic heart failure. The patient was seen through his cardiology clinic through [facility], and it was documented that he had a 10 pound weight increase from the last measurements. The patient is sometimes not adherent to his medication reg imen and wears CPAP at night. He did have COVID diagnosed November 14, 2021, but feels he has improved after being very sick for about 1 month. The patient is not having distinct chest pain. He is not able to ambulate more than 10 to 15 feet without having to stop to breathe. He does have abdominal bloating and has difficulty buttoning his pants, which is very common for him when he fills up wi th fluid. He does not have any new medication changes and rates his current discomfort a 5/10. Home Medications Medication Instructions Recorded Confirmed Type omeprazole 20 mg capsule,delayed 20 mg PO QAM 11/20/18 01/20/22 History release potassium chloride 20 mEq 20 meq PO QAM 11/20/18 01/20/22 History tablet,extended release furosemide 80 mg tablet 160 mg PO BID 08/20/19 01/20/22 History aspirin 81 mg tablet,delayed 162 mg PO QAM 01/16/21 01/20/22 History release (Aspirin Low Dose) Oxygen Home 06/08/21 06/08/21 History metoprolol succinate 100 mg See Rx Instructions .ROUTE .COMPLEX 06/08/21 01/20/22 History tablet,extended release 24 hr spironolactone 50 mg tablet 50 mg PO BID 08/26/21 01/20/22 History albuterol sulfate 90 mcg/actuation 2 puff INHALATION Q4H PRN 12/26/21 01/20/22 History aerosol inhaler fluoxetine 20 mg capsule See Rx Instructions .ROUTE .COMPLEX 12/26/21 01/20/22 History lorazepam 0.5 mg tablet 0.5 mg SUBLINGUAL Q6H PRN 12/26/21 01/20/22 History metolazone 2.5 mg tablet 2.5 mg PO WK 12/26/21 01/20/22 History atorvastatin 20 mg tablet 20 mg PO DAILY 01/20/22 01/20/22 History cholecalciferol (vitamin D3) 50 50 mcg PO DAILY 01/20/22 01/20/22 History mcg (2,000 unit) capsule (Vitamin D3) ferrous gluconate 324 mg (38 mg 324 mg PO BID 01/20/22 01/20/22 History iron) tablet fluticasone furoate 100 1 inh INHALATION DAILY 01/20/22 01/20/22 History mcg-vilanterol 25 mcg/dose inhalation powder (Breo Ellipta) insulin glargine 100 unit/mL (3 See Rx Instructions .ROUTE .COMPLEX 01/20/22 01/20/22 History mL) subcutaneous pen (Basaglar KwikPen U-100 Insulin) Allergies Allergy/AdvReac Type Severity Reaction Status Date / Time adhesive tape Allergy Mild Redness of Verified 01/20/22 16:47 Skin Iodinated Contrast Media AdvReac Intermediate Gastrointestinal Verified 01/20/22 16:47 Upset Past Med/Surg History Medical History (Updated 01/21/22 @ 14:47 by Anand Contreras PA-C) Anxiety and depression BPH (benign prostatic hyperplasia) Chronic diastolic heart failure, NYHA class 3 Degenerative disc disease Epidermal cyst of neck GERD (gastroesophageal reflux disease) H/O deep venous thrombosis 5+ yrs ago s/p fall Hyperlipidemia Hypertension Morbid obesity Nonobstructive atherosclerosis of coronary artery Osteoarthritis Pulmonary emphysema Restrictive cardiomyopathy Sleep apnea BIPAP Surgical History Difficult intubation "Elective" glidescope noted on 08/2018 [facility] record History of arthroscopy RIGHT SHOULDER History of cardiac cath MULTIPLE (NO STENTS PLACED) MOST RECENT= 2018 History of cataract surgery RT/LEFT History of colonoscopy History of esophagogastroduodenoscopy (EGD) History of herniorrhaphy multiple History of open reduction and internal fixation (ORIF) procedure LEFT WRIST (HARDWARE REMOVED) 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) History of tooth extraction History of total knee replacement RIGHT/LEFT Hx of transurethral resection of prostate S/P cholecystectomy Status post total hip replacement, left Family History Mother Stroke Alzheimer disease Father MVA (motor vehicle accident) Social History Smoking Status: Former smoker Tobacco Type: Cigarettes Cigarettes Per Day: HX OF 1-2 PPD X 10 YEARS, QUIT IN 1974; Second Hand Exposure: No; Hx Alcohol Use: No Hx Substance Use: No Preferred Language: Serbian Communication Ability: Effective Visual Impairment: No Limitations [employer] Consultant Required: No Beliefs That Will Affect Care: None marital status: Current Living Situation: Spouse Feels Safe at Home: Yes Safety Concerns: Feels Safe At This Time Assistive Devices: Cane, Walker and Wheelchair Review of Systems A total of 10 systems reviewed and were otherwise negative Physical Exam Vital Signs Vital Signs - 24 hr 01/20/22 16:15 01/20/22 16:57 01/20/22 17:00 Temperature 36.6 C Temperature Source Temporal Artery Scan Pulse Rate 88 87 86 Pulse Rate from SpO2 Sensor Respiratory Rate 18 29 H 24 Respiratory Effort / Characteristics Non-Labored Respiratory Depth Normal Blood Pressure 122/72 Blood Pressure Mean 88 Pulse Oximetry 99 Oxygen Delivery Method Room Air Sepsis Recent Fever Within 48 Hours No Sepsis New/Unexplained Change in Mental Status No Sepsis Action Taken by Nursing No Action Required 01/20/22 17:30 01/20/22 17:36 01/20/22 18:00 Temperature Temperature Source Pulse Rate 81 80 Pulse Rate from SpO2 Sensor Respiratory Rate 26 H 23 Respiratory Effort / Characteristics Respiratory Depth Blood Pressure Blood Pressure Mean Pulse Oximetry 91 Oxygen Delivery Method Room Air Sepsis Recent Fever Within 48 Hours Sepsis New/Unexplained Change in Mental Status Sepsis Action Taken by Nursing 01/20/22 18:30 01/20/22 18:35 01/20/22 19:00 Temperature Temperature Source Pulse Rate 78 77 Pulse Rate from SpO2 Sensor 78 Respiratory Rate 22 24 Respiratory Effort / Characteristics Respiratory Depth Normal Blood Pressure 115/67 Blood Pressure Mean 83 Pulse Oximetry 93 91 Oxygen Delivery Method Room Air Sepsis Recent Fever Within 48 Hours Sepsis New/Unexplained Change in Mental Status Sepsis Action Taken by Nursing VITALS: Vitals are noted on the nurse's note and reviewed by myself. Vital signs stable. GENERAL: Mildly ill-appearing white male who is resting in his ER bed comfortably. He is able to speak in nearly full sentences, but will stop to catch his breath at times. HEAD: Normocephalic atraumatic. HEART: Regular rate and rhythm without murmurs gallops or rubs. LUNGS: Diminished breath sounds throughout. Mild bibasilar crackles bilateral ABDOMEN: Positive normal bowel sounds x 4. Soft and nontender. Possibly distended, however difficult to determine secondary to body habitus MUSCULOSKELETAL: 3+ bilateral pitting edema to the lower extremities NEURO: Patient was alert and oriented to person place and time. CN II through XII grossly intact. Course Administered Medications Aspirin (Aspirin 81 Mg Ectab) 162 mg PO QAM MORE Stop: 02/20/22 08:59 Last Admin: 01/21/22 09:02 Dose: 162 mg Documented by: [id number] Atorvastatin Calcium (Atorvastatin 20 Mg Tab) 20 mg PO DAILY MORE Stop: 02/20/22 08:59 Last Admin: 01/21/22 09:02 Dose: 20 mg Documented by: [id number] Ferrous Gluconate (Ferrous Gluconate 324 Mg Tab) 324 mg PO BID17 MORE Stop: 02/20/22 08:59 Last Admin: 01/21/22 09:01 Dose: 324 mg Documented by: [id number] Fluoxetine HCl (Fluoxetine Hcl 20 Mg Cap) 40 mg PO QAM MORE Stop: 02/20/22 08:59 Last Admin: 01/21/22 09:01 Dose: 40 mg Documented by: [id number] Fluticasone/Vilanterol (Fluticasone/Vilanterol 100/25mcg 14 Puffs/Inhaler) 1 puffs INH DAILY OMRE Stop: 02/20/22 08:59 Last Admin: 01/21/22 09:01 Dose: 1 puffs Documented by: [id number] Furosemide (Furosemide 40 Mg/4 Ml Vial) 80 mg IV Q8H MORE Stop: 02/20/22 00:00 Last Admin: 01/21/22 08:59 Dose: 80 mg Documented by: [id number] Admin: 01/21/22 00:45 Dose: 80 mg Documented by: [id number] Heparin Sodium (Porcine) (Heparin Sod 5,000 Unit/0.5 Ml Vial) 7,500 units SQ Q8 MORE Stop: 02/19/22 21:59 Last Admin: 01/21/22 13:44 Dose: 7,500 units Documented by: [id number] Admin: 01/21/22 05:25 Dose: 7,500 units Documented by: [id number] Admin: 01/20/22 22:16 Dose: 7,500 units Documented by: [id number] Insulin Aspart (Insulin Aspart Per Unit) 0 units SC ACHS [facility] Stop: 02/20/22 00:00 Last Admin: 01/21/22 12:03 Dose: 10 units Documented by: [id number] Cosigned by: [id number] Admin: 01/21/22 08:58 Dose: 7 units Documented by: [id number] Cosigned by: [id number] Admin: 01/21/22 00:41 Dose: 4 units Documented by: [id number] Cosigned by: [id number] Insulin Glargine (Insulin Glargine Solostar 100 Units/Ml 3 Ml Pen) 6 units SC [facility] Stop: 02/20/22 08:59 Last Admin: 01/21/22 09:00 Dose: 6 units Documented by: [id number] Cosigned by: [id number] Metoprolol Succinate (Metoprolol Succ 50mg Ext Rel Tab) 100 mg PO [facility] Stop: 02/20/22 08:59 Last Admin: 01/21/22 09:00 Dose: 100 mg Documented by: [id number] Pantoprazole Sodium (Pantoprazole 40 Mg Tab) 40 mg PO [facility] Stop: 02/20/22 08:59 Last Admin: 01/21/22 09:00 Dose: 40 mg Documented by: [id number] Potassium Chloride (Potassium Chloride Crtab 20 Meq Tabcr) 20 meq PO [facility] Stop: 02/20/22 08:59 Last Admin: 01/21/22 09:01 Dose: 20 meq Documented by: [id number] Spironolactone (Spironolactone 25 Mg Tab) 50 mg PO BID17 [facility] Stop: 02/20/22 08:59 Last Admin: 01/21/22 09:01 Dose: 50 mg Documented by: [id number] Vitamin D (Cholecalciferol 1,000 Units 25 Mcg Tab) 2,000 units PO DAILY [facility] Stop: 02/20/22 08:59 Last Admin: 01/21/22 08:59 Dose: 2,000 units Documented by: [id number] Discontinued Medications Furosemide (Furosemide 40 Mg/4 Ml Vial) 40 mg IV ONE ONE Stop: 01/20/22 19:08 Last Admin: 01/20/22 19:30 Dose: 40 mg Documented by: [id number] Medical Decision Making Differential Diagnosis Differential diagnosis includes, but is not limited to: Myocardial infarction, dysrhythmia, pericarditis, pneumothorax, aortic aneurysm/dissection, DVT/PE, anxiety, GERD, PUD, electrolyte imbalance, thyroid disorder, pneumonia, bronchitis, pancreatitis, and others Laboratory Data Result diagrams: 01/20/22 17:06 01/21/22 05:36 Lab Results 01/20/22 01/20/22 01/20/22 Range/Units 17:06 17:06 17:06 WBC 10.97 H (4.8-10.8) K/uL RBC 4.60 L (4.7-6.1) M/uL Hgb 12.6 L (14.0-18.0) g/dL Hct 40.5 L (42-52) % MCV 88.0 (80-100) fL MCH 27.4 (25-34) pg MCHC 31.1 L (32-36) g/dL RDW Std Deviation 45.8 (36.4-46.3) fL RDW Coeff of Kartik 14.2 (11.5-14.5) % Plt Count 311 (130-400) K/uL MPV 10.5 H (7.4-10.4) fL Immature Gran % (Auto) 0.5 % Neut % (Auto) 56.3 % Lymph % (Auto) 27.4 % Elmore % (Auto) 11.6 % Eos % (Auto) 3.7 % Baso % (Auto) 0.5 % Neut # (Auto) 6.18 (1.4-6.5) K/uL Lymph # (Auto) 3.01 (1.2-3.4) K/uL Elmore # (Auto) 1.27 H (0.11-0.59) K/uL Eos # (Auto) 0.41 (0-0.5) K/uL Baso # (Auto) 0.05 (0-0.2) K/uL Immature Gran # (Auto) 0.05 H (0.00-0.02) K/uL PT 10.0 (9.0-12.0) Seconds INR 0.9 (0.9-1.1) APTT 23.8 (21.0-31.0) Seconds PTT Ratio 0.9 Sodium 136 (136-145) mmol/L Potassium 4.3 (3.5-5.1) mmol/L Chloride 98 (98-107) mmol/L Carbon Dioxide 32 (21-32) mmol/L Anion Gap 6 (3-11) BUN 19 (6-23) mg/dl Creatinine 1.41 H (0.6-1.4) mg/dl Est Cr Clr Drug Dosing Not Reportable Est GFR ( Amer) 56.5 ml/min Est GFR (Non-Af Amer) 48.7 ml/min BUN/Creatinine Ratio 13.5 (10-20) Glucose 213 H (70-99(Fasting)) mg/dl Calcium 9.8 (8.5-10.1) mg/dl Total Bilirubin 0.3 (0.2-1.0) mg/dl AST 17 (13-39) U/L ALT 18 (7-52) U/L Alkaline Phosphatase 79 (34-104) U/L Troponin I < 0.03 (0-0.04) ng/ml B-Natriuretic Peptide (0-100) pg/ml Total Protein 7.1 (6.0-8.3) gm/dl Albumin 3.6 (3.4-5.0) gm/dl Globulin 3.5 (2.5-4.0) gm/dl Albumin/Globulin Ratio 1.0 (0.9-2) Lipase 63 (11-82) U/L SARS-CoV-2, RNA, NAAT (NEGATIVE) 01/20/22 01/20/22 Range/Units 17:13 17:45 WBC (4.8-10.8) K/uL RBC (4.7-6.1) M/uL Hgb (14.0-18.0) g/dL Hct (42-52) % MCV (80-100) fL MCH (25-34) pg MCHC (32-36) g/dL RDW Std Deviation (36.4-46.3) fL RDW Coeff of Kartik (11.5-14.5) % Plt Count (130-400) K/uL MPV (7.4-10.4) fL Immature Gran % (Auto) % Neut % (Auto) % Lymph % (Auto) % Elmore % (Auto) % Eos % (Auto) % Baso % (Auto) % Neut # (Auto) (1.4-6.5) K/uL Lymph # (Auto) (1.2-3.4) K/uL Elmore # (Auto) (0.11-0.59) K/uL Eos # (Auto) (0-0.5) K/uL Baso # (Auto) (0-0.2) K/uL Immature Gran # (Auto) (0.00-0.02) K/uL PT (9.0-12.0) Seconds INR (0.9-1.1) APTT (21.0-31.0) Seconds PTT Ratio Sodium (136-145) mmol/L Potassium (3.5-5.1) mmol/L Chloride (98-107) mmol/L Carbon Dioxide (21-32) mmol/L Anion Gap (3-11) BUN (6-23) mg/dl Creatinine (0.6-1.4) mg/dl Est Cr Clr Drug Dosing Est GFR ( Amer) ml/min Est GFR (Non-Af Amer) ml/min BUN/Creatinine Ratio (10-20) Glucose (70-99(Fasting)) mg/dl Calcium (8.5-10.1) mg/dl Total Bilirubin (0.2-1.0) mg/dl AST (13-39) U/L ALT (7-52) U/L Alkaline Phosphatase (34-104) U/L Troponin I (0-0.04) ng/ml B-Natriuretic Peptide 69 (0-100) pg/ml Total Protein (6.0-8.3) gm/dl Albumin (3.4-5.0) gm/dl Globulin (2.5-4.0) gm/dl Albumin/Globulin Ratio (0.9-2) Lipase (11-82) U/L SARS-CoV-2, RNA, NAAT NEGATIVE (NEGATIVE) Imaging Data Radiologist's Impression: Venous Doppler Study 01/20/22 16:40 BILATERAL LOWER EXTREMITY VENOUS DOPPLER CLINICAL HISTORY: Edema, hx covid19 several weeks ago COMPARISON STUDY: Bilateral lower extremity venous Doppler ultrasound September 20, 2019. TECHNIQUE: Sonography of the deep venous system of the bilateral lower extremities was performed. Compression and augmentation were evaluated. FINDINGS: The bilateral common femoral, superficial femoral and popliteal veins were compressible. Augmentation was normal. Flow was shown within the deep calf vessels although the calf vessels were suboptimally visualized. IMPRESSION: No evidence of deep venous thrombus within the bilateral lower extremities although calf vessels suboptimally visualized. ACT 112: Negative or not required by law. Electronically signed by: Sha Fuentes M.D. 01/21/2022 7:05 AM ECG Data Additional Comments: Normal sinus rhythm @[address] elevation Right bundle branch block When compared with ECG of 26-AUG-2021 18:21, Nonspecific T wave abnormality no longer evident in Anterior leads MDM Narrative Physical exam and history were performed. Nursing notes, EMR, and Medication List were personally reviewed. Patient appears to have shortness of breath symptoms bringing him to the emergency department. He was referred by his cardiology team, and I did reach out to Dr. Griffin, who is quite familiar with the patient history. Evidently the patient has restrictive cardiomyopathy and often will retain abdominal fluid and fluid in the lower legs. Recommendation is for diuresis. IV access was established and labs were obtained. He was sent to ultrasound for evaluation for possible DVT in the setting of recent Covid infection. He was given IV Lasix here in the ER. An order was placed for continuous cardiac monitoring. The monitor shows a rate of 77 with normal sinus rhythm. Patient's blood work is as above and was reviewed. He does not have a si gnificantly elevated white blood cell count, gross anemia, bandemia, or significant electrolyte imbalance. Transaminases are not diagnostic. Glucose is elevated over 200. Troponin x1 is negative. BNP is normal. Covid is negative. Chest x-ray and bilateral lower extremity ultrasound was performed and reviewed by myself and radiology. Both of these are without acute findings. The patient was given 40 mg IV Lasix. Overall the patient does not appear well for discharge home. His symptoms are concerning for acute on chronic CHF with fluid overload. The patient will likely need diuresed to help with his symptoms. The case was discussed with the on-call hospitalist team who agreed to evaluate the patient here in the ER. Please see their dictation for further patient course, plan, and disposition. The chart was completed utilizing [employer] Voice Recognition Software. Grammatical errors, random word insertions, pronoun errors, and incomplete sentences are an occasional consequence of this system due to software limitations, ambient noise, and hardware issues. Any formal questions or concerns about the content, text, or information contained within the body of this dictation should be directly addressed to the provider for clarification. . 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
[2022-01-20 17:23] LABS: Basophils # (auto) 0.05 K/uL (0-0.2); Basophils % (auto) 0.5 %; Eosinophils # (auto) 0.41 K/uL (0-0.5); Eosinophils % (auto) 3.7 %; Hematocrit (blood only) 40.5 % (42-52); Hemoglobin 12.6 g/dL (14.0-18.0); Immature Granulocytes # (auto) 0.05 K/uL (0.00-0.02); Immature Granulocytes % (auto) 0.5 %; Lymphocytes # (auto) 3.01 K/uL (1.2-3.4); Lymphocytes % (auto) 27.4 %; Mean Corpuscular Hemoglobin 27.4 pg (25-34); Mean Corpuscular Hgb Conc 31.1 g/dL (32-36); Mean Platelet Volume 10.5 fL (7.4-10.4); Monocytes # (auto) 1.27 K/uL (0.11-0.59); Monocytes % (auto) 11.6 %; Neutrophils # (auto) 6.18 K/uL (1.4-6.5); Neutrophils % (auto) 56.3 %; Platelet Count 311 K/uL (130-400); RDW Coefficient of Variation 14.2 % (11.5-14.5); RDW Standard Deviation 45.8 fL (36.4-46.3); White Blood Count 10.97 K/uL (4.8-10.8)
[2022-01-20 17:33] LABS: INR 0.9 (0.9-1.1); Partial Thromboplastin Ratio 0.9; Partial Thromboplastin Time 23.8 Seconds (21.0-31.0)
[2022-01-20 17:47] LABS: Troponin I < 0.03 ng/ml (0-0.04)
[2022-01-20 17:50] LABS: Alanine Aminotransferase 18 U/L (7-52); Albumin Level 3.6 gm/dl (3.4-5.0); Alkaline Phosphatase 79 U/L (34-104); Anion Gap 6 (3-11); Aspartate Aminotransferase 17 U/L (13-39); BUN Creatinine Ratio 13.5 (10-20); Bilirubin,Total 0.3 mg/dl (0.2-1.0); Blood Urea Nitrogen 19 mg/dl (6-23); Calcium 9.8 mg/dl (8.5-10.1); Carbon Dioxide 32 mmol/L (21-32); Chloride 98 mmol/L (98-107); Est GFR (African American) 56.5 ml/min; Est GFR (Non-African American) 48.7 ml/min; Globulin 3.5 gm/dl (2.5-4.0); Glucose 213 mg/dl (70-99(Fasting)); Lipase 63 U/L (11-82); Potassium 4.3 mmol/L (3.5-5.1); Sodium 136 mmol/L (136-145); Total Protein 7.1 gm/dl (6.0-8.3)
[2022-01-20] MEDS ORDERED: FUROSEMIDE 40 MG/4 ML VIAL IV ONE ×2 (19:07→22:12)
[2022-01-20] MEDS ORDERED: ACETAMINOPHEN 325 MG TAB PO PRN (21:39)
--- NOTE | 2022-01-20 21:39 | History & Physical Report ---
Date of Service January 20, 2022 Assessment & Plan (1) Acute heart failure with preserved ejection fraction (HFpEF): Plan: This is a 76-year-old gentleman with a history of class III HFpEF and hypertensive heart disease, COPD, type 2 diabetes, restrictive cardiomyopathy, GERD, acute on chronic diastolic heart failure, obesity hypoventilation syndrome, obstructive sleep apnea BPH, CKD 3, hypertension, hyperlipidemia who presents to [facility] for bilateral lower extremity swelling and shortness of breath for 1 week in the setting of +10lb weight gain, dietary indiscretion, and medication adherence difficulties. He also reports intermittent chest pain. His presentation is concerning for acute HFpEF. [id number] HFpEF Patient with known history of class III HFpEF and hypertensive heart disease; last TTE in 2019 demonstrating LVEF 60 to 65% with normal biventricular/valvular function Work-up as follows: On history, patient reporting missing multiple doses of his Lasix, weekly metolazone; he also endorses a high salt diet over the last few weeks (soup, deli meats, takeout) Physical exam reviewing appreciable abdominal extension with positive hepatojugular reflux, 1+ pitting edema in the lower extremities bilaterally Troponin negative, ECG without acute/new conduction/repolarization abnormalities Chest x-ray without any acute pulmonary findings BNP on arrival interestingly at 69 Suspect patient's history and physical exam findings are secondary to acute on chronic HFpEF due to dietary indiscretion, medication issues, and noncompliance with CPAP Home medications: Furosemide 160 twice daily, metolazone 2.5 mg weekly, spironolactone 50 mg twice daily, metoprolol succinate 100mg --> Hold metolazone for now and home Lasix Obtain TTE in the a.m. -- h/o CP provided in HPI noted, will eval also for WMAs Initiate furosemide 80 mg IV 3 times daily Heart healthy diet, sodium under 2 g/day, fluid restriction under 2 L/day; monitor intake and output, daily weights Consult dietitian: Appreciate education and dietary review/recommendations on sodium intake to prevent future exacerbations Can consider transition to a simpler, once a day regimen if possible, given patient's reported difficulties remembering to take b.i.d.such as high-dose torsemide Encourage CPAP compliance Consult [facility] cardiology: Appreciate insight and recommendations Monitor BMP (2) Type 2 diabetes mellitus: Plan: Patient with known history of diabetes, last A1c at 10.2% in 12/2021 Lantus: 6 units every morning, 15 units every afternoon (two thirds home dose) Initiate SSI with carb correction 20; ACH S glucose checks Given concerns with medications for heart failure, may wish to investigate diabetes understanding/compliance during this stay, and consider diabetes education consultation (3) Chest discomfort: Plan: Patient reporting several month history of intermittent, substernal, pressure- like chest discomfort that is not associated with exertion Patient does have numerous risk factors for ASCVD, including obesity, previous tobacco use, diabetes, hyperlipidemia, hypertension ECG without acute conduction or repolarization abnormalities, troponin negative on arrival Obtain TTE, as above, to also evaluate for regional wall motion abnormalities May also represent gastroesophageal reflux/dyspepsia in the setting of increasing mass-effect from suspected fluid in the abdominal cavity; no evidence of pulmonary process at present (4) GERD (gastroesophageal reflux disease): Plan: Continue PPI Consider adding famotidine while here if needed (5) CKD (chronic kidney disease), stage III: Plan: History noted. Baseline creatinine appears to be between 1.41.6, closer to the higher end Monitor BMP in setting of scheduled Lasix Avoid nephrotoxic medications (6) Sleep apnea: Plan: Patient with noted history of sleep apnea; he endorses infrequent use of CPAP at home CPAP nightly while here if tolerated; will continue education (7) Obesity hypoventilation syndrome: Plan: History noted, encourage weight loss/diabetes management/dietary education as above (8) Hypertension: Plan: History noted in the setting of acute HFpEF Continue diuresis, metoprolol (9) Hyperlipidemia: Plan: History noted. Continue atorvastatin 20 mg daily. Plan: Code: Full code - discussed at bedside w/ patient and Diet: HH, low Na, fluid restriction < 2L/d PPX: Hep 7500U t.i.d. Dispo: MS/Tele History of Present Illness Primary Care Provider: Arnie Ng MD This is a 76-year-old gentleman with a history of class III HFpEF and hypertensive heart disease, COPD, type 2 diabetes, restrictive cardiomyopathy, GERD, acute on chronic diastolic heart failure, obesity hypoventilation syndrome, obstructive sleep apnea BPH, CKD 3, hypertension, hyperlipidemia who presents to [facility] for bilateral lower extremity swelling and shortness of breath for 1 week. 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 He reports abdominal distention and difficulty putting on his clothes because of this. Cardiology note from Dr. Griffin reviewed. Patient had high salt diet this past week, including canned foods and lunch meats. He also endorses missing multiple doses of his afternoon diuretics. He also did not take his metolazone this week. To me, patient also reports not wearing his CPAP. Of note, patient does report intermittent history of chest pain over the last few months. He says it comes and goes, lasts a minute, and is not associated with exertion. He describes it as a substernal pressure. Sometimes it radiates up his neck; he does not think it radiates either of his arms. He does endorse a significant history of GERD, he is unsure whether or not these 2 would be related. Medications review: Albuterol, aspirin, atorvastatin, ferrous gluconate, fluoxetine, Breo Ellipta, Lasix 160 mg twice daily, metolazone 2.5 mg weekly, metoprolol succinate 100 mg, omeprazole, potassium, spironolactone 50 mg twice daily. Last TTE in 2019 demonstrating LVEF 60 to 65%, normal LV function, normal valve structure and function. In the ER, patient was found to have normal vital signs. He was found to have abdominal distention and lower extremity edema. Labs notable for mild leukocytosis to 11 mild monocytosis to 1.27, persistent normocytic anemia at 12.6, sodium 136, BUN 19, creatinine 1.41 (baseline 1.4 - 1.6), blood sugar 213. Troponin negative. Covid negative. Chest x-ray demonstrating cardiomegaly without pulmonary findings. ECG demonstrating right bundle branch block without appreciable conduction abnormalities. He received a lower extremity Doppler ultrasound, which did not reveal evidence of DVT. He received Lasix 40mg IV x 1. Allergies Allergy/AdvReac Type Severity Reaction Status Date / Time adhesive tape Allergy Mild Redness of Verified 01/20/22 16:47 Skin Iodinated Contrast Media AdvReac Intermediate Gastrointestinal Verified 01/20/22 16:47 Upset Home Medications Medication Instructions Recorded Confirmed Type omeprazole 20 mg capsule,delayed 20 mg PO QAM 11/20/18 01/20/22 History release potassium chloride 20 mEq 20 meq PO QAM 11/20/18 01/20/22 History tablet,extended release furosemide 80 mg tablet 160 mg PO BID 08/20/19 01/20/22 History aspirin 81 mg tablet,delayed 162 mg PO QAM 01/16/21 01/20/22 History release (Aspirin Low Dose) Oxygen Home 06/08/21 06/08/21 History metoprolol succinate 100 mg See Rx Instructions .ROUTE .COMPLEX 06/08/21 01/20/22 History tablet,extended release 24 hr spironolactone 50 mg tablet 50 mg PO BID 08/26/21 01/20/22 History albuterol sulfate 90 mcg/actuation 2 puff INHALATION Q4H PRN 12/26/21 01/20/22 History aerosol inhaler fluoxetine 20 mg capsule See Rx Instructions .ROUTE .COMPLEX 12/26/21 01/20/22 History lorazepam 0.5 mg tablet 0.5 mg SUBLINGUAL Q6H PRN 12/26/21 01/20/22 History metolazone 2.5 mg tablet 2.5 mg PO WK 12/26/21 01/20/22 History atorvastatin 20 mg tablet 20 mg PO DAILY 01/20/22 01/20/22 History cholecalciferol (vitamin D3) 50 50 mcg PO DAILY 01/20/22 01/20/22 History mcg (2,000 unit) capsule (Vitamin D3) ferrous gluconate 324 mg (38 mg 324 mg PO BID 01/20/22 01/20/22 History iron) tablet fluticasone furoate 100 1 inh INHALATION DAILY 01/20/22 01/20/22 History mcg-vilanterol 25 mcg/dose inhalation powder (Breo Ellipta) insulin glargine 100 unit/mL (3 See Rx Instructions .ROUTE .COMPLEX 01/20/22 01/20/22 History mL) subcutaneous pen (Basaglar KwikPen U-100 Insulin) Past Med/Surg History Medical History Anxiety and depression BPH (benign prostatic hyperplasia) Chronic diastolic heart failure, NYHA class 3 Degenerative disc disease Epidermal cyst of neck GERD (gastroesophageal reflux disease) H/O deep venous thrombosis 5+ yrs ago s/p fall Hyperlipidemia Hypertension Morbid obesity Nonobstructive atherosclerosis of coronary artery Osteoarthritis Pulmonary emphysema Restrictive cardiomyopathy Sleep apnea BIPAP Surgical History Difficult intubation "Elective" glidescope noted on 08/2018 [facility] record History of arthroscopy RIGHT SHOULDER History of cardiac cath MULTIPLE (NO STENTS PLACED) MOST RECENT= 2018 History of cataract surgery RT/LEFT History of colonoscopy History of esophagogastroduodenoscopy (EGD) History of herniorrhaphy multiple History of open reduction and internal fixation (ORIF) procedure LEFT WRIST (HARDWARE REMOVED) 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) History of tooth extraction History of total knee replacement RIGHT/LEFT Hx of transurethral resection of prostate S/P cholecystectomy Status post total hip replacement, left Family History Mother Stroke Alzheimer disease Father MVA (motor vehicle accident) Social History (Updated 01/20/22 @ 17:14 by Anand Contreras PA-C) Smoking Status: Former smoker Tobacco Type: Cigarettes Cigarettes Per Day: HX OF 1-2 PPD X 10 YEARS, QUIT IN 1974; Second Hand Exposure: No; Hx Alcohol Use: No Hx Substance Use: No Preferred Language: Armenian Communication Ability: Effective Visual Impairment: No Limitations Trawl Net Maker Required: No Beliefs That Will Affect Care: None marital status: Current Living Situation: Spouse Feels Safe at Home: Yes Safety Concerns: Feels Safe At This Time Assistive Devices: Cane and Denture - Upper Review of Systems Review of Systems: as per HPI Physical Exam Physical Exam: General: 76-year-old male who is lying back in his hospital bed, relaxed, upon my arrival. No acute distress. HEENT: NCAT. - Eyes - Sclera are white, anicteric, and without injection. PERRL. - Mouth - MMM with no tonsillar edema or exudates. - Neck - supple. Difficulty appreciating jugular venous appearance; +hepatojugu lar reflux appreciated Cardiac: Normal rate and regular rhythm; S1 and S2 present with no murmurs, rubs, or gallops. Pulmonary: Difficulty given habitus. Of what could be heard - good respiratory effort with symmetric expansion of the chest. No use of accessory muscles. Lungs were clear to auscultation bilaterally with no crackles or wheezes. Abdominal: Normoactive bowel sounds. Abdomen is significantly distended with a fluid wave. Mild epigastric TTP. Extremities: Upper and lower extremities are warm and well perfused. 1+ peripheral edema in the lower extremities b/l. Results & Data Results & Data ([facility]) Vital Signs (Past 12 Hours) Vital Signs Temp Pulse Resp BP Pulse Ox 01/20/22 18:35 77 24 115/67 91 01/20/22 18:30 78 22 93 01/20/22 18:00 80 23 91 01/20/22 17:30 81 26 H 01/20/22 17:00 86 24 01/20/22 16:57 87 29 H 01/20/22 16:15 36.6 C 88 18 122/72 99 Laboratory Results Laboratory Results WBC 10.97 K/uL (4.8-10.8) H 01/20/22 17:06 RBC 4.60 M/uL (4.7-6.1) L 01/20/22 17:06 Hgb 12.6 g/dL (14.0-18.0) L 01/20/22 17:06 Hct 40.5 % (42-52) L 01/20/22 17:06 MCV 88.0 fL (80-100) 01/20/22 17:06 MCH 27.4 pg (25-34) 01/20/22 17:06 MCHC 31.1 g/dL (32-36) L 01/20/22 17:06 RDW Std Deviation 45.8 fL (36.4-46.3) 01/20/22 17:06 RDW Coeff of Kartik 14.2 % (11.5-14.5) 01/20/22 17:06 Plt Count 311 K/uL (130-400) 01/20/22 17:06 MPV 10.5 fL (7.4-10.4) H 01/20/22 17:06 Immature Gran % (Auto) 0.5 % 01/20/22 17:06 Neut % (Auto) 56.3 % 01/20/22 17:06 Lymph % (Auto) 27.4 % 01/20/22 17:06 Izard % (Auto) 11.6 % 01/20/22 17:06 Eos % (Auto) 3.7 % 01/20/22 17:06 Baso % (Auto) 0.5 % 01/20/22 17:06 Neut # (Auto) 6.18 K/uL (1.4-6.5) 01/20/22 17:06 Lymph # (Auto) 3.01 K/uL (1.2-3.4) 01/20/22 17:06 Izard # (Auto) 1.27 K/uL (0.11-0.59) H 01/20/22 17:06 Eos # (Auto) 0.41 K/uL (0-0.5) 01/20/22 17:06 Baso # (Auto) 0.05 K/uL (0-0.2) 01/20/22 17:06 Immature Gran # (Auto) 0.05 K/uL (0.00-0.02) H 01/20/22 17:06 PT 10.0 Seconds (9.0-12.0) 01/20/22 17:06 INR 0.9 (0.9-1.1) 01/20/22 17:06 APTT 23.8 Seconds (21.0-31.0) 01/20/22 17:06 PTT Ratio 0.9 01/20/22 17:06 Sodium 136 mmol/L (136-145) 01/20/22 17:06 Potassium 4.3 mmol/L (3.5-5.1) 01/20/22 17:06 Chloride 98 mmol/L (98-107) 01/20/22 17:06 Carbon Dioxide 32 mmol/L (21-32) 01/20/22 17:06 Anion Gap 6 (3-11) 01/20/22 17:06 BUN 19 mg/dl (6-23) 01/20/22 17:06 Creatinine 1.41 mg/dl (0.6-1.4) H 01/20/22 17:06 Est Cr Clr Drug Dosing Not Reportable 01/20/22 17:06 Est GFR ( Amer) 56.5 ml/min 01/20/22 17:06 Est GFR (Non-Af Amer) 48.7 ml/min 01/20/22 17:06 BUN/Creatinine Ratio 13.5 (10-20) 01/20/22 17:06 Glucose 213 mg/dl (70-99(Fasting)) H 01/20/22 17:06 POC Glucose 220 mg/dl (70-99) H 01/21/22 00:32 Calcium 9.8 mg/dl (8.5-10.1) 01/20/22 17:06 Total Bilirubin 0.3 mg/dl (0.2-1.0) 01/20/22 17:06 AST 17 U/L (13-39) 01/20/22 17:06 ALT 18 U/L (7-52) 01/20/22 17:06 Alkaline Phosphatase 79 U/L (34-104) 01/20/22 17:06 Troponin I < 0.03 ng/ml (0-0.04) 01/20/22 17:06 B-Natriuretic Peptide 69 pg/ml (0-100) 01/20/22 17:13 Total Protein 7.1 gm/dl (6.0-8.3) 01/20/22 17:06 Albumin 3.6 gm/dl (3.4-5.0) 01/20/22 17:06 Globulin 3.5 gm/dl (2.5-4.0) 01/20/22 17:06 Albumin/Globulin Ratio 1.0 (0.9-2) 01/20/22 17:06 Lipase 63 U/L (11-82) 01/20/22 17:06 SARS-CoV-2, RNA, NAAT NEGATIVE (NEGATIVE) 01/20/22 17:45 Impressions Chest X-Ray 01/20/22 16:18 XR chest 1V portable CLINICAL HISTORY: Atypical chest pain. COMPARISON STUDY: Chest CT September 20, 2019. Chest radiograph January 13, 2022. FINDINGS: Lung volumes are normal. Lungs are clear. There is no pneumothorax or pleural effusion. Cardiomegaly is unchanged. Mediastinal contours are normal. There is no evidence for pulmonary edema. IMPRESSION: No acute cardiopulmonary findings. Cardiomegaly. ACT 112: Negative or not required by law. Electronically signed by: Sha Fuentes M.D. 01/20/2022 4:33 PM Supervising Physician Co-Signing Physician Notes Patient seen and examined, chart reviewed, case discussed with Dr. Painter and I agree with the assessment and plan as above. In brief, patient is a 76yo male with history of diastolic CHF presenting with acute excerbation - edema, abdominal distention and 10# weight gain. Possibly secondary to dietary indiscretion and not taking Metolazone. Also complaining of 1 month of intermittent non-exertional chest discomfort. On exam he is afebrile, HD stable, NAD Skin - no rash HEENT - NC/AT, PERRL, MMM, Neck supple, thick neck Heart - +S1/S2, regular, no m/r/g Lungs- CTA Abd - +BS, soft, NT, mild distention, diastasis recti present - no hernia Ext - +edema 1+ Labs and images reviewed Assessment/Plan -Diuresis with Lasix 80mg TID - monitor renal function and electrolytes -Patient may benefit from Nutrition counseling as he seems to indulge in a lot of salty foods -TTE in AM -Encourage CPAP compliance -Remainder as above Resident Activity Tracking Resident Involvement: Resident Care Provided Care Provided: Adult Hospital Medicine (1) Sleep apnea Sleep apnea type: unspecified type Qualified Code(s): G47.30 - Sleep apnea, unspecified (2) Hyperlipidemia Hyperlipidemia type: unspecified Qualified Code(s): E78.5 - Hyperlipidemia, u nspecified (3) GERD (gastroesophageal reflux disease) Esophagitis presence: esophagitis presence not specified Qualified Code(s): K21.9 - Gastro-esophageal reflux disease without esophagitis (4) Hypertension Hypertension type: essential hypertension Qualified Code(s): I10 - Essential (primary) hypertension
[2022-01-20] MEDS: HEPARIN SOD 5,000 UNIT/0.5 ML VIAL SQ SCH (22:16)
[2022-01-20] MEDS ORDERED: GLUCAGON FOR INJ 1 MG VIAL SQ PRN (23:07)
[2022-01-20] MEDS ORDERED: LORazepam 0.5 MG TAB SL PRN (23:07)
[2022-01-20] MEDS ORDERED: CARBOHYDRATES FOR HYPOGLYCEMIA PO PRN (23:07)
[2022-01-20] MEDS ORDERED: ALBUTEROL HFA 8 GM INHALER INH PRN (23:07)
[2022-01-20] MEDS ORDERED: GLUCOSE 10 TABS/TUBE PO PRN (23:07)
[2022-01-20] MEDS ORDERED: DEXTROSE 50% 50 ML SYRINGE IV PRN (23:07)
[2022-01-20] MEDS ORDERED: GLUCOSE 40% GEL 15 GM TUBE PO PRN (23:07)
[2022-01-21] MEDS: INSULIN ASPART PER UNIT SC SCH ×5 (00:41→20:55)
[2022-01-21] MEDS: FUROSEMIDE 40 MG/4 ML VIAL IV SCH ×4 (00:45→23:57)
--- NOTE | 2022-01-21 01:29 | Billing Data ---
Date of Service January 20, 2022 Coding Level of Care Code 14111 Initial Inpt Care Lvl 3
[2022-01-21] MEDS: HEPARIN SOD 5,000 UNIT/0.5 ML VIAL SQ SCH ×3 (05:25→21:09)
[2022-01-21 06:12] LABS: BUN Creatinine Ratio 14.1 (10-20); Calcium 9.8 mg/dl (8.5-10.1); Creatinine Clr Calc Pharmacy 63.3 ml/min; Est GFR (African American) 52.8 ml/min; Est GFR (Non-African American) 45.6 ml/min; Potassium 3.9 mmol/L (3.5-5.1)
--- NOTE | 2022-01-21 07:06 | Ultrasound Report ---
BILATERAL LOWER EXTREMITY VENOUS DOPPLER CLINICAL HISTORY: Edema, hx covid19 several weeks ago COMPARISON STUDY: Bilateral lower extremity venous Doppler ultrasound September 20, 2019. TECHNIQUE: Sonography of the deep venous system of the bilateral lower extremities was performed. Co mpression and augmentation were evaluated. FINDINGS: The bilateral common femoral, superficial femoral and popliteal veins were compressible. A ugmentation was normal. Flow was shown within the deep calf vessels although the calf vessels were chowdhury boptimally visualized. IMPRESSION: No evidence of deep venous thrombus within the bilateral lower extremities although calf vessels suboptimally visualized. ACT 112: Negative or not required by law. Electronically signed by: Sha Fuentes M.D. 01/21/2022 7:05 AM
[2022-01-21] MEDS: CHOLECALCIFEROL 1,000 UNITS 25 MCG TAB PO SCH (08:59)
[2022-01-21] MEDS ORDERED: INSULIN GLARGINE SOLOSTAR 100 UNITS/ML 3 ML PEN SC SCH ×2 (09:00→21:00)
[2022-01-21] MEDS: PANTOprazole 40 MG TAB PO SCH (09:00)
[2022-01-21] MEDS: METOPROLOL SUCC 50MG EXT REL TAB PO SCH ×2 (09:00→21:09)
[2022-01-21] MEDS ORDERED: ERGOCALCIFEROL 50,000 UNITS 1250 MCG CAP PO SCH (09:00)
[2022-01-21] MEDS: FERROUS GLUCONATE 324 MG TAB PO SCH ×2 (09:01→15:52)
[2022-01-21] MEDS: POTASSIUM CHLORIDE CRTAB 20 MEQ TABCR PO SCH (09:01)
[2022-01-21] MEDS: FLUTICASONE/VILANTEROL 100/25MCG 14 PUFFS/INHALER INH SCH (09:01)
[2022-01-21] MEDS: FLUoxetine HCL 20 MG CAP PO SCH ×2 (09:01→21:09)
[2022-01-21] MEDS: SPIRONOLACTONE 25 MG TAB PO SCH ×2 (09:01→15:53)
[2022-01-21] MEDS: ASPIRIN 81 MG ECTAB PO SCH (09:02)
[2022-01-21] MEDS: ATORVASTATIN 20 MG TAB PO SCH (09:02)
--- NOTE | 2022-01-21 11:22 | Cardiology Consultation ---
Date of Consultation January 21, 2022 Assessment & Plan (1) Acute heart failure with preserved ejection fraction (HFpEF): (2) Restrictive cardiomyopathy: (3) Obstructive sleep apnea: (4) CKD (chronic kidney disease) stage 3, GFR 30-59 ml/min: Patient is a 76-year-old male with longstanding history of restrictive cardiomyopathy and diastolic heart failure, morbid obesity with pickwickian phenomena. Patient presents now with acute on chronic decompensated diastolic heart failure right greater than left. He is responding to IV diuretics. Would continue IV furosemide as ordered. Patient in the past has responded poorly to KRISTYN inhibitor including acute renal failure. Would not use in this indication. Continue oral metoprolol succinate, spironolactone Would investigate if patient insurance coverage available for Jardiance 10 mg p.o. daily for both hyperglycemia and diastolic dysfunction Use of BiPAP imperative History of Present Illness Reason for Consultation: Acute on chronic diastolic heart failure Requesting Physician: Dr. Riddle Attending Physician: Deb Riddle MD History of Present Illness Patient is a 76-year-old male with ongoing issues include 1. Chronic class III diastolic congestive heart failure in the setting of preserved ejection fraction chronic hypertensive heart disease 2.Normal coronaries by cardiac catheterization in 2005 with repeat at [facility] in May of 2018, with mild nonobstructive coronary ather osclerosis. 3.Obstructive sleep apnea on BiPAP supplement (noncompliant) 4.Morbid obesity. 5.Labile hypertension. 6. COPD/ prior tobacco abuse 7. DM type II Patient's referred from cardiology clinic where he presented with worsening abdominal bloating lower extremity edema consistent with right heart failure. Notes increased weight of at least 15 pounds, increase sodium intake, some missed diuretic dosing. Has not been using metolazone as needed. Not using BiPAP He has responded overnight with IV diuretics and is feeling somewhat improved. Still with increased abdominal girth and flank and thigh edema He denies fever chills or productive cough. Notes no bleeding difficulties. Notes no syncope or near syncope. No chest pains or discomfort. No tachypalpitations or arrhythmias. Allergies Allergy/AdvReac Type Severity Reaction Status Date / Time adhesive tape Allergy Mild Redness of Verified 01/20/22 16:47 Skin Iodinated Contrast Media AdvReac Intermediate Gastrointestinal Verified 01/20/22 16:47 Upset Home Medications Medication Instructions Recorded Confirmed Type omeprazole 20 mg capsule,delayed 20 mg PO QAM 11/20/18 01/20/22 History release potassium chloride 20 mEq 20 meq PO QAM 11/20/18 01/20/22 History tablet,extended release furosemide 80 mg tablet 160 mg PO BID 08/20/19 01/20/22 History aspirin 81 mg tablet,delayed 162 mg PO QAM 01/16/21 01/20/22 History release (Aspirin Low Dose) Oxygen Home 06/08/21 06/08/21 History metoprolol succinate 100 mg See Rx Instructions .ROUTE .COMPLEX 06/08/21 01/20/22 History tablet,extended release 24 hr spironolactone 50 mg tablet 50 mg PO BID 08/26/21 01/20/22 History albuterol sulfate 90 mcg/actuation 2 puff INHALATION Q4H PRN 12/26/21 01/20/22 History aerosol inhaler fluoxetine 20 mg capsule See Rx Instructions .ROUTE .COMPLEX 12/26/21 01/20/22 History lorazepam 0.5 mg tablet 0.5 mg SUBLINGUAL Q6H PRN 12/26/21 01/20/22 History metolazone 2.5 mg tablet 2.5 mg PO WK 12/26/21 01/20/22 History atorvastatin 20 mg tablet 20 mg PO DAILY 01/20/22 01/20/22 History cholecalciferol (vitamin D3) 50 50 mcg PO DAILY 01/20/22 01/20/22 History mcg (2,000 unit) capsule (Vitamin D3) ferrous gluconate 324 mg (38 mg 324 mg PO BID 01/20/22 01/20/22 History iron) tablet fluticasone furoate 100 1 inh INHALATION DAILY 01/20/22 01/20/22 History mcg-vilanterol 25 mcg/dose inhalation powder (Breo Ellipta) insulin glargine 100 unit/mL (3 See Rx Instructions .ROUTE .COMPLEX 01/20/22 01/20/22 History mL) subcutaneous pen (Basaglar KwikPen U-100 Insulin) Patient History Medical History (Updated 01/21/22 @ 11:19 by Jose L Griffin MD) Anxiety and depression BPH (benign prostatic hyperplasia) Chronic diastolic heart failure, NYHA class 3 Degenerative disc disease Epidermal cyst of neck GERD (gastroesophageal reflux disease) H/O deep venous thrombosis 5+ yrs ago s/p fall Hyperlipidemia Hypertension Morbid obesity Nonobstructive atherosclerosis of coronary artery Osteoarthritis Pulmonary emphysema Restrictive cardiomyopathy Sleep apnea BIPAP Surgical History Difficult intubation "Elective" glidescope noted on 08/2018 [facility] record History of arthroscopy RIGHT SHOULDER History of cardiac cath MULTIPLE (NO STENTS PLACED) MOST RECENT= 2018 History of cataract surgery RT/LEFT History of colonoscopy History of esophagogastroduodenoscopy (EGD) History of herniorrhaphy multiple History of open reduction and internal fixation (ORIF) procedure LEFT WRIST (HARDWARE REMOVED) 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) History of tooth extraction History of total knee replacement RIGHT/LEFT Hx of transurethral resection of prostate S/P cholecystectomy Status post total hip replacement, left Family History Mother Stroke Alzheimer disease Father MVA (motor vehicle accident) Social History Smoking Status: Former smoker Tobacco Type: Cigarettes Cigarettes Per Day: HX OF 1-2 PPD X 10 YEARS, QUIT IN 1974; Second Hand Exposure: No; Hx Alcohol Use: No Hx Substance Use: No Preferred Language: Chinese Communication Ability: Effective Visual Impairment: No Limitations 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 Beliefs That Will Affect Care: None marital status: Current Living Situation: Spouse Feels Safe at Home: Yes Safety Concerns: Feels Safe At This Time Assistive Devices: Cane and Denture - Upper Review of Systems Review of Systems: All systems reviewed & are unremarkable except as noted in HPI & below Physical Exam Constitutional: WD/WN, vitals as above + morbidly obese Eyes: PERRL, conjunctivae normal, anicteric sclerae ENMT: external ear and nose normal, oropharynx normal Neck: trachea midline, no thyromegaly Respiratory: no respiratory distress Auscultation: lungs clear to auscultation bilaterally and + diminished lung sounds Cardiovascular: Rate/Rhythm: regular rate and regular rhythm Heart Sounds: normal S1 and normal S2; no gallop and no murmur Palpation: normal PMI Vessels: normal carotid upstroke and radial pulses present; no JVD and no carotid bruit Extremities: + edema (3+ thigh and flank edema) Gastrointestinal (Abdomen): normal bowel sounds, soft, nontender, no hepatosplenomegaly Musculoskeletal: no cyanosis or clubbing, extremities motor strength 5/5 Skin: no rashes, warm and dry Neurologic: PERRL, EOMI, accommodation nl, no face palsy, no dysarthria Psychiatric: A+Ox3, euthymic affect Results & Data ([facility]) Vital Signs (Past 12 Hours) Vital Signs Temp Pulse Pulse Resp BP BP Pulse Ox 01/21/22 07:07 36.8 C 83 20 150/80 H 90 01/21/22 03:55 36.8 C 87 20 110/73 92 01/21/22 01:16 86 Laboratory Results Laboratory Results - last 24 hr 01/20/22 01/20/22 01/20/22 17:06 17:06 17:06 WBC 10.97 H RBC 4.60 L Hgb 12.6 L Hct 40.5 L MCV 88.0 MCH 27.4 MCHC 31.1 L RDW Std Deviation 45.8 RDW Coeff of Kartik 14.2 Plt Count 311 MPV 10.5 H Immature Gran % (Auto) 0.5 Neut % (Auto) 56.3 Lymph % (Auto) 27.4 [place] % (Auto) 11.6 Eos % (Auto) 3.7 Baso % (Auto) 0.5 Neut # (Auto) 6.18 Lymph # (Auto) 3.01 [place] # (Auto) 1.27 H Eos # (Auto) 0.41 Baso # (Auto) 0.05 Immature Gran # (Auto) 0.05 H PT 10.0 INR 0.9 APTT 23.8 PTT Ratio 0.9 Sodium 136 Potassium 4.3 Chloride 98 Carbon Dioxide 32 Anion Gap 6 BUN 19 Creatinine 1.41 H Est Cr Clr Drug Dosing Not Reportable Est GFR ( Amer) 56.5 Est GFR (Non-Af Amer) 48.7 BUN/Creatinine Ratio 13.5 Glucose 213 H POC Glucose Calcium 9.8 Total Bilirubin 0.3 AST 17 ALT 18 Alkaline Phosphatase 79 Troponin I < 0.03 B-Natriuretic Peptide Total Protein 7.1 Albumin 3.6 Globulin 3.5 Albumin/Globulin Ratio 1.0 Lipase 63 SARS-CoV-2, RNA, NAAT 01/20/22 01/20/22 01/21/22 17:13 17:45 00:32 WBC RBC Hgb Hct MCV MCH MCHC RDW Std Deviation RDW Coeff of Kartik Plt Count MPV Immature Gran % (Auto) Neut % (Auto) Lymph % (Auto) [place] % (Auto) Eos % (Auto) Baso % (Auto) Neut # (Auto) Lymph # (Auto) [place] # (Auto) Eos # (Auto) Baso # (Auto) Immature Gran # (Auto) PT INR APTT PTT Ratio Sodium Potassium Chloride Carbon Dioxide Anion Gap BUN Creatinine Est Cr Clr Drug Dosing Est GFR ( Amer) Est GFR (Non-Af Amer) BUN/Creatinine Ratio Glucose POC Glucose 220 H Calcium Total Bilirubin AST ALT Alkaline Phosphatase Troponin I B-Natriuretic Peptide 69 Total Protein Albumin Globulin Albumin/Globulin Ratio Lipase SARS-CoV-2, RNA, NAAT NEGATIVE 01/21/22 01/21/22 05:36 07:28 WBC RBC Hgb Hct MCV MCH MCHC RDW Std Deviation RDW Coeff of Kartik Plt Count MPV Immature Gran % (Auto) Neut % (Auto) Lymph % (Auto) [place] % (Auto) Eos % (Auto) Baso % (Auto) Neut # (Auto) Lymph # (Auto) [place] # (Auto) Eos # (Auto) Baso # (Auto) Immature Gran # (Auto) PT INR APTT PTT Ratio Sodium 136 Potassium 3.9 Chloride 97 L Carbon Dioxide 33 H Anion Gap 6 BUN 21 Creatinine 1.49 H Est Cr Clr Drug Dosing 63.3 Est GFR ( Amer) 52.8 Est GFR (Non-Af Amer) 45.6 BUN/Creatinine Ratio 14.1 Glucose 228 H POC Glucose 201 H Calcium 9.8 Total Bilirubin AST ALT Alkaline Phosphatase Troponin I B-Natriuretic Peptide Total Protein Albumin Globulin Albumin/Globulin Ratio Lipase SARS-CoV-2, RNA, NAAT
--- NOTE | 2022-01-21 14:39 | Hospitalist Progress Note ---
Date of Service January 21, 2022 Assessment & Plan (1) Acute heart failure with preserved ejection fraction (HFpEF): Plan: This is a 76-year-old gentleman with a history of class III HFpEF, COPD, type 2 diabetes, restrictive cardiomyopathy, GERD, obesity hypoventilation syndrome, obstructive sleep apnea,BPH, CKD 3, hypertension, hyperlipidemia who presents for bilateral lower extremity swelling and shortness of breath for 1 week in the setting of +10lb weight gain, dietary indiscretion, and medication adherence difficulties. He also reports intermittent chest pain. His presentation is concerning for acute HFpEF. [id number] HFpEF Patient with known history of class III HFpEF and hypertensive heart disease; last TTE in 2019 demonstrating LVEF 60 to 65% with normal biventricular/valvular function -Echo here again LVEF 60-65%, no significant valvular disease, no wall motion abnormalities On history, patient reporting missing multiple doses of his Lasix especially for the afternoon dose, missed his weekly metolazone; he also endorses a high salt diet over the last few weeks (soup, deli meats, takeout) Troponin negative, ECG without acute/new conduction/repolarization abnormalities Chest x-ray without any acute pulmonary findings BNP on arrival interestingly at 69 Suspect patient's history and physical exam findings are secondary to acute on chronic HFpEF due to dietary indiscretion, medication issues, and noncompliance with CPAP Home medications: Furosemide 160 twice daily, metolazone 2.5 mg weekly, spironolactone 50 mg twice daily, metoprolol succinate 100mg --> Hold metolazone and home Lasix while giving IV diuresis Starting to diurese and improving clinically with Lasix 80 mg IV every 8 hours -Continue spironolactone 50 mg p.o. twice daily -Continue strict I's and O's, daily weights, low-sodium diet, fluid restriction- lower down to 1500 mL Consult dietitian: Appreciate education and dietary review/recommendations on sodium intake to prevent future exacerbations Can consider transition to a simpler, once a day regimen if possible, given patient's reported difficulties remembering to take b.i.d.such as high-dose torsemide Encour[facility]: Appreciate insight and recommendations-recommend also adding on Jardiance for cardiovascular benefits in addition to diabetes control Monitor BMP, magnesium, keep magnesium and potassium replete -Continue to monitor on telemetry for arrhythmia (2) Type 2 diabetes mellitus: Plan: Patient with known history of diabetes, last A1c at 10.2% in 12/2021- uncontrolled With hyperglycemia here Increase Lantus to 15 units twice daily Continue NovoLog sliding scale Given concerns with medications for heart failure, may wish to investigate diabetes understanding/compliance during this stay, and consider diabetes education consultation -Cardiology suggested adding on Jardiance 10 mg p.o. once daily for cardiovascular benefits as well as diabetes control-this was rogers checked and is affordable for patient at $19.50 per month-we will prescribe at discharge (3) Chest discomfort: Plan: Patient reporting several month history of intermittent, substernal, pressure- like chest discomfort that is not associated with exertion Patient does have numerous risk factors for ASCVD, including obesity, previous tobacco use, diabetes, hyperlipidemia, hypertension ECG without acute conduction or repolarization abnormalities, troponin negative on arrival Echo here without regional wall motion abnormalities May also represent gastroesophageal reflux/dyspepsia in the setting of increasing mass-effect from suspected fluid in the abdominal cavity; no evidence of pulmonary process at present (4) GERD (gastroesophageal reflux disease): Plan: Continue PPI Consider adding famotidine while here if needed (5) CKD (chronic kidney disease), stage III: Plan: History noted. Baseline creatinine appears to be between 1.41.6, closer to the higher end Monitor BMP in setting of scheduled Lasix-creatinine stable today 1.4 Avoid nephrotoxic medications (6) Sleep apnea: Plan: Patient with noted history of sleep apnea; he endorses infrequent use of CPAP at home CPAP nightly while here if tolerated; will continue education He is willing to try his new mask at home (7) Obesity hypoventilation syndrome: Plan: History noted, encourage weight loss/diabetes management/dietary education as above (8) Hypertension: Plan: Blood pressures here are controlled Continue diuresis, metoprolol, spironolactone Of note, cardiology notes that he cannot tolerate KRISTYN inhibitors in the past due to renal failure (9) Hyperlipidemia: Plan: Continue atorvastatin 20 mg daily. (10) Morbid obesity: Plan: BMI 44.0 Needs weight loss (11) COPD (chronic obstructive pulmonary disease): Plan: Stable, no acute issues Continue home maintenance inhalers Albuterol as needed Plan: Code: Full code - discussed at bedside w/ patient and DVT PPX: Hep 7500U t.i.d. Disposition-continued stay on med telemetry Admission and Anticipated Discharge Date Admission Date: January 20, 2022 Subjective Patient feels a bit better today with less abdominal distention less lower extremity edema but still feels like he has more fluid that could be removed. Denies chest pains or shortness of breath. Telemetry with normal sinus rhythm with rates in the 70s to 80s. Review of Systems Review of Systems: All systems reviewed & are unremarkable except as noted in HPI & below Physical Exam Constitutional: WD/WN, vitals as above + morbidly obese Eyes: + anicteric sclerae Neck: trachea midline, no thyromegaly Respiratory: normal respiratory effort, lungs clear to auscultation Cardiovascular: Rate/Rhythm: regular rate and regular rhythm Heart Sounds: no murmur Extremities: + edema (1+ pitting edema of feet and legs bilat) Chest (Breasts): Chest: normal inspection of chest Gastrointestinal (Abdomen): normal bowel sounds, soft, nontender, no hepatosplenomegaly Musculoskeletal: Extremities: extremities normal to inspection; no cyanosis and no clubbing Skin: no rashes, warm and dry Neurologic: moves all extremities and awake; no focal motor deficits Psychiatric: A+Ox3, euthymic affect Results & Data Results & Data ([facility]) Vital Signs (Past 12 Hours) Vital Signs Temp Pulse Pulse Resp BP BP Pulse Ox 01/21/22 11:18 36.5 C 80 20 124/79 93 01/21/22 07:07 36.8 C 83 20 150/80 H 90 01/21/22 06:20 83 01/21/22 03:55 36.8 C 87 20 110/73 92 Laboratory Results 01/21/22 01/21/22 01/21/22 Range/Units 11:46 07:28 05:36 WBC (4.8-10.8) K/uL RBC (4.7-6.1) M/uL Hgb (14.0-18.0) g/dL Hct (42-52) % MCV (80-100) fL MCH (25-34) pg MCHC (32-36) g/dL RDW Std Deviation (36.4-46.3) fL RDW Coeff of Kartik (11.5-14.5) % Plt Count (130-400) K/uL MPV (7.4-10.4) fL Immature Gran % (Auto) % Neut % (Auto) % Lymph % (Auto) % [place] % (Auto) % Eos % (Auto) % Baso % (Auto) % Neut # (Auto) (1.4-6.5) K/uL Lymph # (Auto) (1.2-3.4) K/uL [place] # (Auto) (0.11-0.59) K/uL Eos # (Auto) (0-0.5) K/uL Baso # (Auto) (0-0.2) K/uL Immature Gran # (Auto) (0.00-0.02) K/uL PT (9.0-12.0) Seconds INR (0.9-1.1) APTT (21.0-31.0) Seconds PTT Ratio Sodium 136 (136-145) mmol/L Potassium 3.9 (3.5-5.1) mmol/L Chloride 97 L (98-107) mmol/L Carbon Dioxide 33 H (21-32) mmol/L Anion Gap 6 (3-11) BUN 21 (6-23) mg/dl Creatinine 1.49 H (0.6-1.4) mg/dl Est Cr Clr Drug Dosing 63.3 Est GFR ( Amer) 52.8 ml/min Est GFR (Non-Af Amer) 45.6 ml/min BUN/Creatinine Ratio 14.1 (10-20) Glucose 228 H (70-99(Fasting)) mg/dl POC Glucose 185 H 201 H (70-99) mg/dl Calcium 9.8 (8.5-10.1) mg/dl Total Bilirubin (0.2-1.0) mg/dl AST (13-39) U/L ALT (7-52) U/L Alkaline Phosphatase (34-104) U/L Troponin I (0-0.04) ng/ml B-Natriuretic Peptide (0-100) pg/ml Total Protein (6.0-8.3) gm/dl Albumin (3.4-5.0) gm/dl Globulin (2.5-4.0) gm/dl Albumin/Globulin Ratio (0.9-2) Lipase (11-82) U/L SARS-CoV-2, RNA, NAAT (NEGATIVE) 01/21/22 01/20/2201/20/22 Range/Units 00:32 17:45 17:13 WBC (4.8-10.8) K/uL RBC (4.7-6.1) M/uL Hgb (14.0-18.0) g/dL Hct (42-52) % MCV (80-100) fL MCH (25-34) pg MCHC (32-36) g/dL RDW Std Deviation (36.4-46.3) fL RDW Coeff of Kartik (11.5-14.5) % Plt Count (130-400) K/uL MPV (7.4-10.4) fL Immature Gran % (Auto) % Neut % (Auto) % Lymph % (Auto) % [place] % (Auto) % Eos % (Auto) % Baso % (Auto) % Neut # (Auto) (1.4-6.5) K/uL Lymph # (Auto) (1.2-3.4) K/uL [place] # (Auto) (0.11-0.59) K/uL Eos # (Auto) (0-0.5) K/uL Baso # (Auto) (0-0.2) K/uL Immature Gran # (Auto) (0.00-0.02) K/uL PT (9.0-12.0) Seconds INR (0.9-1.1) APTT (21.0-31.0) Seconds PTT Ratio Sodium (136-145) mmol/L Potassium (3.5-5.1) mmol/L Chloride (98-107) mmol/L Carbon Dioxide (21-32) mmol/L Anion Gap (3-11) BUN (6-23) mg/dl Creatinine (0.6-1.4) mg/dl Est Cr Clr Drug Dosing Est GFR ( Amer) ml/min Est GFR (Non-Af Amer) ml/min BUN/Creatinine Ratio (10-20) Glucose (70-99(Fasting)) mg/dl POC Glucose 220 H (70-99) mg/dl Calcium (8.5-10.1) mg/dl Total Bilirubin (0.2-1.0) mg/dl AST (13-39) U/L ALT (7-52) U/L Alkaline Phosphatase (34-104) U/L Troponin I (0-0.04) ng/ml B-Natriuretic Peptide 69 (0-100) pg/ml Total Protein (6.0-8.3) gm/dl Albumin (3.4-5.0) gm/dl Globulin (2.5-4.0) gm/dl Albumin/Globulin Ratio (0.9-2) Lipase (11-82) U/L SARS-CoV-2, RNA, NAAT NEGATIVE (NEGATIVE) 01/20/22 01/20/22 01/20/22 Range/Units 17:06 17:06 17:06 WBC 10.97 H (4.8-10.8) K/uL RBC 4.60 L (4.7-6.1) M/uL Hgb 12.6 L (14.0-18.0) g/dL Hct 40.5 L (42-52) % MCV 88.0 (80-100) fL MCH 27.4 (25-34) pg MCHC 31.1 L (32-36) g/dL RDW Std Deviation 45.8 (36.4-46.3) fL RDW Coeff of Kartik 14.2 (11.5-14.5) % Plt Count 311 (130-400) K/uL MPV 10.5 H (7.4-10.4) fL Immature Gran % (Auto) 0.5 % Neut % (Auto) 56.3 % Lymph % (Auto) 27.4 % [place] % (Auto) 11.6 % Eos % (Auto) 3.7 % Baso % (Auto) 0.5 % Neut # (Auto) 6.18 (1.4-6.5) K/uL Lymph # (Auto) 3.01 (1.2-3.4) K/uL [place] # (Auto) 1.27 H (0.11-0.59) K/uL Eos # (Auto) 0.41 (0-0.5) K/uL Baso # (Auto) 0.05 (0-0.2) K/uL Immature Gran # (Auto) 0.05 H (0.00-0.02) K/uL PT 10.0 (9.0-12.0) Seconds INR 0.9 (0.9-1.1) APTT 23.8 (21.0-31.0) Seconds PTT Ratio 0.9 Sodium 136 (136-145) mmol/L Potassium 4.3 (3.5-5.1) mmol/L Chloride 98 (98-107) mmol/L Carbon Dioxide 32 (21-32) mmol/L Anion Gap 6 (3-11) BUN 19 (6-23) mg/dl Creatinine 1.41 H (0.6-1.4) mg/dl Est Cr Clr Drug Dosing Not Reportable Est GFR ( Amer) 56.5 ml/min Est GFR (Non-Af Amer) 48.7 ml/min BUN/Creatinine Ratio 13.5 (10-20) Glucose 213 H (70-99(Fasting)) mg/dl POC Glucose (70-99) mg/dl Calcium 9.8 (8.5-10.1) mg/dl Total Bilirubin 0.3 (0.2-1.0) mg/dl AST 17 (13-39) U/L ALT 18 (7-52) U/L Alkaline Phosphatase 79 (34-104) U/L Troponin I < 0.03 (0-0.04) ng/ml B-Natriuretic Peptide (0-100) pg/ml Total Protein 7.1 (6.0-8.3) gm/dl Albumin 3.6 (3.4-5.0) gm/dl Globulin 3.5 (2.5-4.0) gm/dl Albumin/Globulin Ratio 1.0 (0.9-2) Lipase 63 (11-82) U/L SARS-CoV-2, RNA, NAAT (NEGATIVE) PG Care Time/CCT Total # of Minutes Spent Total Time Spent with Patient: Total time spent is greater than 50% in coordination of care (as documented) at patient's floor/unit and/or counseling patient: Coding Level of Care Code 69417 Subseq Hosp Care Lvl 3 Diagnoses Acute heart failure with preserved ejection fraction (HFpEF) I50.31 Type 2 diabetes mellitus E11.9 Chest discomfort R07.89 GERD (gastroesophageal reflux disease) K21.9 Esophagitis presence: esophagitis presence not specified CKD (chronic kidney disease), stage III N18.3 Sleep apnea G47.30 Sleep apnea type: unspecified type Obesity hypoventilation syndrome E66.2 Hypertension I10 Hypertension type: essential hypertension Hyperlipidemia E78.5 Hyperlipidemia type: unspecified Morbid obesity E66.01 COPD (chronic obstructive pulmonary disease) J44.9 (1) Sleep apnea Sleep apnea type: unspecified type Qualified Code(s): G47.30 - Sleep apnea, unspecified (2) Hyperlipidemia Hyperlipidemia type: unspecified Qualified Code(s): E78.5 - Hyperlipidemia, unspecified (3) GERD (gastroesophageal reflux disease) Esophagitis presence: esophagitis presence not specified Qualified Code(s): K21.9 - Gastro-esophageal reflux disease without esophagitis (4) Hypertension Hypertension type: essential hypertension Qualified Code(s): I10 - Essential (primary) hypertension
--- NOTE | 2022-01-21 20:44 | Electrocardiogram Report ---
Test Reason : Blood Pressure : / mmHG Vent. Rate : 087 BPM Atrial Rate : 087 BPM P-R Int : 140 ms QRS Dur : 120 ms QT Int : 376 ms P-R-T Axes : 018 -15 023 degrees QTc Int : 452 ms Normal sinus rhythm Right bundle branch block Abnormal ECG When compared with ECG of 26-AUG-2021 18:21, No significant change Confirmed by García Beard ([id number]) on 01/21/2022 8:43:57 PM Referred By: Jose L Griffin Confirmed By:García Beard
[2022-01-21] MEDS: INSULIN GLARGINE SOLOSTAR 100 UNITS/ML 3 ML PEN SC SCH (20:56)
[2022-01-22] MEDS: HEPARIN SOD 5,000 UNIT/0.5 ML VIAL SQ SCH ×3 (05:27→20:44)
[2022-01-22 07:45] LABS: Basophils # (auto) 0.04 K/uL (0-0.2); Basophils % (auto) 0.4 %; Eosinophils # (auto) 0.41 K/uL (0-0.5); Hematocrit (blood only) 41.7 % (42-52); Hemoglobin 12.8 g/dL (14.0-18.0); Immature Granulocytes # (auto) 0.05 K/uL (0.00-0.02); Immature Granulocytes % (auto) 0.5 %; Lymphocytes # (auto) 3.58 K/uL (1.2-3.4); Lymphocytes % (auto) 34.9 %; Mean Corpuscular Hemoglobin 27.1 pg (25-34); Mean Corpuscular Hgb Conc 30.7 g/dL (32-36); Mean Corpuscular Volume 88.3 fL (80-100); Mean Platelet Volume 10.7 fL (7.4-10.4); Monocytes # (auto) 0.93 K/uL (0.11-0.59); Monocytes % (auto) 9.1 %; Neutrophils # (auto) 5.24 K/uL (1.4-6.5); Neutrophils % (auto) 51.1 %; Platelet Count 297 K/uL (130-400); RDW Coefficient of Variation 14.3 % (11.5-14.5); RDW Standard Deviation 46.3 fL (36.4-46.3); Red Blood Count 4.72 M/uL (4.7-6.1); White Blood Count 10.25 K/uL (4.8-10.8)
[2022-01-22 08:16] LABS: BUN Creatinine Ratio 15.2 (10-20); Calcium 9.8 mg/dl (8.5-10.1); Creatinine Clr Calc Pharmacy 56.7 ml/min; Est GFR (African American) 46.7 ml/min; Est GFR (Non-African American) 40.3 ml/min; Magnesium 2.1 mg/dl (1.7-2.4); Potassium 3.8 mmol/L (3.5-5.1)
[2022-01-22] MEDS: FERROUS GLUCONATE 324 MG TAB PO SCH ×2 (08:30→16:00)
[2022-01-22] MEDS: POTASSIUM CHLORIDE CRTAB 20 MEQ TABCR PO SCH (08:30)
[2022-01-22] MEDS: FUROSEMIDE 40 MG/4 ML VIAL IV SCH ×3 (08:30→23:19)
[2022-01-22] MEDS: PANTOprazole 40 MG TAB PO SCH (08:31)
[2022-01-22] MEDS: SPIRONOLACTONE 25 MG TAB PO SCH ×2 (08:31→16:01)
[2022-01-22] MEDS: ATORVASTATIN 20 MG TAB PO SCH (08:31)
[2022-01-22] MEDS: METOPROLOL SUCC 50MG EXT REL TAB PO SCH ×2 (08:31→20:30)
[2022-01-22] MEDS: CHOLECALCIFEROL 1,000 UNITS 25 MCG TAB PO SCH (08:31)
[2022-01-22] MEDS: FLUoxetine HCL 20 MG CAP PO SCH ×2 (08:31→20:44)
[2022-01-22] MEDS: ASPIRIN 81 MG ECTAB PO SCH (08:31)
[2022-01-22] MEDS: FLUTICASONE/VILANTEROL 100/25MCG 14 PUFFS/INHALER INH SCH (08:32)
[2022-01-22] MEDS: INSULIN GLARGINE SOLOSTAR 100 UNITS/ML 3 ML PEN SC SCH ×2 (08:35→20:36)
[2022-01-22] MEDS: INSULIN ASPART PER UNIT SC SCH ×4 (08:37→20:35)
--- NOTE | 2022-01-22 11:10 | Cardiology Progress Note ---
Date of Service January 22, 2022 Assessment & Plan (1) Acute heart failure with preserved ejection fraction (HFpEF): (2) Restrictive cardiomyopathy: (3) Obstructive sleep apnea: (4) CKD (chronic kidney disease) stage 3, GFR 30-59 ml/min: Plan: Patient is a 76-year-old male with longstanding history of restrictive cardiomyopathy and diastolic heart failure, morbid obesity with pickwickian phenomena. Patient presents now with acute on chronic decompensated diastolic heart failure right greater than left. He is responding to IV diuretics. Would continue IV furosemide as ordered. Patient in the past has responded poorly to KRISTYN inhibitor including acute renal failure. Would not use in this indication. Continue oral metoprolol succinate, spironolactone Would investigate if patient insurance coverage available for Jardiance 10 mg p. o. daily for both hyperglycemia and diastolic dysfunction Use of BiPAP imperative Admission and Anticipated Discharge Date Admission Date: January 20, 2022 Subjective Patient seen and examined, chart reviewed. Patient's at bedside. States he is feeling better today. Notes that abdominal bloating and lower extremity edema are improving as is his breathing. Diuresing well. Telemetry reviewed: Normal sinus rhythm without arrhythmias Review of Systems Review of Systems: All systems reviewed & are unremarkable except as noted in HPI & below Physical Exam Physical Exam: General: Awake, alert and oriented x 3. No acute distress. HEENT: Normocephalic, atraumatic. Pupils equal, round and reactive to light and accommodation. Extraocular muscles are intact. Anicteric sclera. Moist mucous membranes. Neck: No JVD. No bruit. Cardiovascular: Regular. Positive S-4. Normal S-1 and S-2. No S-3. No murmurs or rubs. Pulmonary: Clear to auscultation B/L. No rales, rhonchi or wheezing Abdomen: Bowel sounds x 4, soft. No rebound, guarding or tenderness. No organomegaly. Extremities: No clubbing, cyanosis. +1 bilateral lower extremity pitting +2 pedal pulses bilaterally. Skin: Chronic lower extremity venous stasis changes Results & Data ([facility]) Vital Signs (Past 12 Hours) Vital Signs Temp Pulse Pulse Resp BP Pulse Ox 01/22/22 07:30 71 01/22/22 07:16 36.7 C 73 20 117/76 90 01/22/22 03:33 36.6 C 74 18 123/76 94 01/21/22 23:44 79
[2022-01-22] MEDS ORDERED: INSULIN GLARGINE SOLOSTAR 100 UNITS/ML 3 ML PEN SC ONE (11:30)
--- NOTE | 2022-01-22 11:30 | Hospitalist Progress Note ---
Date of Service January 22, 2022 Assessment & Plan (1) Acute heart failure with preserved ejection fraction (HFpEF): Plan: This is a 76-year-old gentleman with a history of class III HFpEF, COPD, type 2 diabetes, restrictive cardiomyopathy, GERD, obesity hypoventilation syndrome, obstructive sleep apnea,BPH, CKD 3, hypertension, hyperlipidemia who presents for bilateral lower extremity swelling and shortness of breath for 1 week in the setting of +10lb weight gain, dietary indiscretion, and medication adherence difficulties. He also reports intermittent chest pain. His presentation is concerning for acute HFpEF. [id number] HFpEF Patient with known history of class III HFpEF and hypertensive heart disease; last TTE in 2019 demonstrating LVEF 60 to 65% with normal biventricular/valvular function -Echo here again LVEF 60-65%, no significant valvular disease, no wall motion abnormalities On history, patient reporting missing multiple doses of his Lasix especially for the afternoon dose, missed his weekly metolazone; he also endorses a high salt diet over the last few weeks (soup, deli meats, takeout) Troponin negative, ECG without acute/new abnormalities Chest x-ray without any acute pulmonary findings BNP on arrival interestingly at 69 Home medications: Furosemide 160 twice daily, metolazone 2.5 mg weekly, spironolactone 50 mg twice daily, metoprolol succinate 100mg --> Hold metolazone and home Lasix while giving IV diuresis Improving, he has lost 2 kg of body weight and is net -2.0 L so far, peripheral edema and abdominal distention improved Creatinine with slight bump up today to 1.6 -Continue Lasix 80 mg IV every 8 hours and watch for further rising creatinine -Continue spironolactone 50 mg p.o. twice daily -Continue strict I's and O's, daily weights, low-sodium diet, fluid restriction 1500 mL Consult dietitian: Appreciate education and dietary review/recommendations on sodium intake to prevent future exacerbations Can consider transition to a simpler, once a day regimen such as high-dose torsemide on discharge which may be better absorbed in the gut Encouraged CPAP compliance Consult [facility] [address] cardiology: Appreciate insight and recommendations-recommend also adding on Jardiance for cardiovascular benefits in addition to diabetes control-ordered for her on discharge as this is covered by his insurance Monitor BMP, magnesium, keep magnesium and potassium replete -Continue to monitor on telemetry for arrhythmia-none so far (2) Type 2 diabetes mellitus: Plan: Patient with known history of diabetes, last A1c at 10.2% in 12/2021- uncontrolled With ongoing hyperglycemia here Increase Lantus back to home dose of 30 units twice daily Continue NovoLog sliding scale Given concerns with medications for heart failure, may wish to investigate diabetes understanding/compliance during this stay, and consider diabetes education consultation -Cardiology suggested adding on Jardiance 10 mg p.o. once daily for cardiovascular benefits as well as diabetes control-this was rogers checked and is affordable for patient at $19.50 per month-we will prescribe at discharge (3) Chest discomfort: Plan: Patient reporting several month history of intermittent, substernal, pressure- like chest discomfort that is not associated with exertion Patient does have numerous risk factors for ASCVD, including obesity, previous tobacco use, diabetes, hyperlipidemia, hypertension ECG without acute conduction or repolarization abnormalities, troponin negative on arrival Echo here without regional wall motion abnormalities May also represent gastroesophageal reflux/dyspepsia in the setting of increasing mass-effect from suspected fluid in the abdominal cavity; no evidence of pulmonary process at present (4) GERD (gastroesophageal reflux disease): Plan: Continue PPI (5) CKD (chronic kidney disease), stage III: Plan: History noted. Baseline creatinine appears to be between 1.41.6, closer to the higher end Monitor BMP in setting of scheduled Lasix-creatinine slightly up today at 1.6 Avoid nephrotoxic medications (6) Sleep apnea: Plan: Patient with noted history of sleep apnea; he endorses infrequent use of CPAP at home -Added 3 L nasal cannula O2 at bedtime while in the hospital which is what he does at home but he will try to use his CPAP at home when he gets discharged (7) Obesity hypoventilation syndrome: Plan: History noted, encourage weight loss/diabetes management/dietary education as above (8) Hypertension: Plan: Blood pressures here are controlled Continue diuresis, metoprolol, spironolactone Of note, cardiology notes that he cannot tolerate KRISTYN inhibitors in the past due to renal failure (9) Hyperlipidemia: Plan: Continue atorvastatin 20 mg daily. (10) Morbid obesity: Plan: BMI 44.0 Needs weight loss (11) COPD (chronic obstructive pulmonary disease): Plan: Stable, no acute issues Continue home maintenance inhalers Albuterol as needed Plan: Code: Full code - discussed at bedside w/ patient and DVT PPX: Hep 7500U t.i.d. Disposition-continued stay on med telemetry, but possible discharge to home on Monday if continues to diurese and is improved Admission and Anticipated Discharge Date Admission Date: January 20, 2022 Subjective Patient feeling better today, less distended the abdomen and legs are less swollen. Has lost 5 pounds. Denies chest pains or shortness of breath. We discussed his uncontrolled diabetes and need for improved control. He has not been getting his oxygen at night here that he uses at home-we will order 3 L Telemetry with normal sinus rhythm with rates in the 70s to 80s, PACs Review of Systems Review of Systems: All systems reviewed & are unremarkable except as noted in HPI & below Physical Exam Constitutional: WD/WN, vitals as above + morbidly obese Eyes: + anicteric sclerae Neck: trachea midline, no thyromegaly Respiratory: normal respiratory effort, lungs clear to auscultation Cardiovascular: Rate/Rhythm: regular rate and regular rhythm Heart Sounds: no murmur Extremities: + edema (Trace pitting edema of feet and legs bilat, improved from previous) Chest (Breasts): Chest: normal inspection of chest Gastrointestinal (Abdomen): normal bowel sounds, soft, nontender, no hepatosplenomegaly Musculoskeletal: Extremities: extremities normal to inspection; no cyanosis and no clubbing Skin: no rashes, warm and dry Neurologic: moves all extremities and awake; no focal motor deficits Psychiatric: A+Ox3, euthymic affect Results & Data Results & Data ([facility]) Vital Signs (Past 12 Hours) Vital Signs Temp Pulse Pulse Resp BP Pulse Ox 01/22/22 07:30 71 01/22/22 07:16 36.7 C 73 20 117/76 90 01/22/22 03:33 36.6 C 74 18 123/76 94 01/21/22 23:44 79 Laboratory Results 01/22/22 01/22/22 01/22/22 Range/Units 16:32 11:28 07:45 WBC (4.8-10.8) K/uL RBC (4.7-6.1) M/uL Hgb (14.0-18.0) g/dL Hct (42-52) % MCV (80-100) fL MCH (25-34) pg MCHC (32-36) g/dL RDW Std Deviation (36.4-46.3) fL RDW Coeff of Kartik (11.5-14.5) % Plt Count (130-400) K/uL MPV (7.4-10.4) fL Immature Gran % (Auto) % Neut % (Auto) % Lymph % (Auto) % [place] % (Auto) % Eos % (Auto) % Baso % (Auto) % Neut # (Auto) (1.4-6.5) K/uL Lymph # (Auto) (1.2-3.4) K/uL [place] # (Auto) (0.11-0.59) K/uL Eos # (Auto) (0-0.5) K/uL Baso # (Auto) (0-0.2) K/uL Immature Gran # (Auto) (0.00-0.02) K/uL Sodium (136-145) mmol/L Potassium (3.5-5.1) mmol/L Chloride (98-107) mmol/L Carbon Dioxide (21-32) mmol/L Anion Gap (3-11) BUN (6-23) mg/dl Creatinine (0.6-1.4) mg/dl Est Cr Clr Drug Dosing ml/min Est GFR ( Amer) ml/min Est GFR (Non-Af Amer) ml/min BUN/Creatinine Ratio (10-20) Glucose (70-99(Fasting)) mg/dl POC Glucose 130 H 224 H 207 H (70-99) mg/dl Calcium (8.5-10.1) mg/dl Magnesium (1.7-2.4) mg/dl 01/22/22 01/22/22 01/21/22 Range/Units 07:06 07:06 20:41 WBC 10.25 (4.8-10.8) K/uL RBC 4.72 (4.7-6.1) M/uL Hgb 12.8 L (14.0-18.0) g/dL Hct 41.7 L (42-52) % MCV 88.3 (80-100) fL MCH 27.1 (25-34) pg MCHC 30.7 L (32-36) g/dL RDW Std Deviation 46.3 (36.4-46.3) fL RDW Coeff of Kartik 14.3 (11.5-14.5) % Plt Count 297 (130-400) K/uL MPV 10.7 H (7.4-10.4) fL Immature Gran % (Auto) 0.5 % Neut % (Auto) 51.1 % Lymph % (Auto) 34.9 % Bourbon % (Auto) 9.1 % Eos % (Auto) 4.0 % Baso % (Auto) 0.4 % Neut # (Auto) 5.24 (1.4-6.5) K/uL Lymph # (Auto) 3.58 H (1.2-3.4) K/uL Bour[place] # (Auto) 0.93 H (0.11-0.59) K/uL Eos # (Auto) 0.41 (0-0.5) K/uL Baso # (Auto) 0.04 (0-0.2) K/uL Immature Gran # (Auto) 0.05 H (0.00-0.02) K/uL Sodium 136 (136-145) mmol/L Potassium 3.8 (3.5-5.1) mmol/L Chloride 97 L (98-107) mmol/L Carbon Dioxide 33 H (21-32) mmol/L Anion Gap 6 (3-11) BUN 25 H (6-23) mg/dl Creatinine 1.65 H (0.6-1.4) mg/dl Est Cr Clr Drug Dosing 56.7 ml/min Est GFR ( Amer) 46.7 ml/min Est GFR (Non-Af Amer) 40.3 ml/min BUN/Creatinine Ratio 15.2 (10-20) Glucose 213 H (70-99(Fasting)) mg/dl POC Glucose 190 H (70-99) mg/dl Calcium 9.8 (8.5-10.1) mg/dl Magnesium 2.1 (1.7-2.4) mg/dl PG Care Time/CCT Total # of Minutes Spent Total Time Spent with Patient: Total time spent is greater than 50% in coordination of care (as documented) at patient's floor/unit and/or counseling patient: Coding Level of Care Code 90804 Subseq Hosp Care Lvl 3 Diagnoses Acute heart failure with preserved ejection fraction (HFpEF) I50.31 Type 2 diabetes mellitus E11.9 Chest discomfort R07.89 GERD (gastroesophageal reflux disease) K21.9 Esophagitis presence: esophagitis presence not specified CKD (chronic kidney disease), stage III N18.3 Sleep apnea G47.30 Sleep apnea type: unspecified type Obesity hypoventilation syndrome E66.2 Hypertension I10 Hypertension type: essential hypertension Hyperlipidemia E78.5 Hyperlipidemia type: unspecified Morbid obesity E66.01 COPD (chronic obstructive pulmonary disease) J44.9 (1) Sleep apnea Sleep apnea type: unspecified type Qualified Code(s): G47.30 - Sleep apnea, unspecified (2) Hyperlipidemia Hyperlipidemia type: unspecified Qualified Code(s): E78.5 - Hyperlipidemia, unspecified (3) GERD (gastroesophageal reflux disease) Esophagitis presence: esophagitis presence not specified Qualified Code(s): K21.9 - Gastro-esophageal reflux disease without esophagitis (4) Hypertension Hypertension type: essential hypertension Qualified Code(s): I10 - Essential (primary) hypertension
--- NOTE | 2022-01-22 12:34 | Electrocardiogram Report ---
Test Reason : Blood Pressure : / mmHG Vent. Rate : 085 BPM Atrial Rate : 085 BPM P-R Int : 136 ms QRS Dur : 114 ms QT Int : 384 ms P-R-T Axes : 008 -29 018 degrees QTc Int : 456 ms Poor data quality, interpretation may be adversely affected Normal sinus rhythm Right bundle branch block Abnormal ECG When compared with ECG of 20-JAN-2022 16:32, No significant change was found Confirmed by Tristan Israel ([id number]) on 01/22/2022 12:34:05 PM Referred By: Jose L Griffin Confirmed By:Tristan Israel
[2022-01-23] MEDS: HEPARIN SOD 5,000 UNIT/0.5 ML VIAL SQ SCH ×3 (05:54→20:59)
[2022-01-23] MEDS: INSULIN ASPART PER UNIT SC SCH ×4 (08:05→20:59)
[2022-01-23] MEDS: CHOLECALCIFEROL 1,000 UNITS 25 MCG TAB PO SCH (08:23)
[2022-01-23] MEDS: FERROUS GLUCONATE 324 MG TAB PO SCH ×2 (08:23→16:52)
[2022-01-23] MEDS: ATORVASTATIN 20 MG TAB PO SCH (08:23)
[2022-01-23] MEDS: FLUoxetine HCL 20 MG CAP PO SCH ×2 (08:24→20:57)
[2022-01-23] MEDS: SPIRONOLACTONE 25 MG TAB PO SCH ×2 (08:24→16:53)
[2022-01-23] MEDS: POTASSIUM CHLORIDE CRTAB 20 MEQ TABCR PO SCH ×2 (08:24→20:58)
[2022-01-23] MEDS: METOPROLOL SUCC 50MG EXT REL TAB PO SCH ×2 (08:24→20:59)
[2022-01-23] MEDS: ASPIRIN 81 MG ECTAB PO SCH (08:25)
[2022-01-23] MEDS: PANTOprazole 40 MG TAB PO SCH (08:25)
[2022-01-23] MEDS: INSULIN GLARGINE SOLOSTAR 100 UNITS/ML 3 ML PEN SC SCH ×2 (08:25→20:58)
[2022-01-23] MEDS: FLUTICASONE/VILANTEROL 100/25MCG 14 PUFFS/INHALER INH SCH (08:26)
[2022-01-23] MEDS: FUROSEMIDE 40 MG/4 ML VIAL IV SCH ×3 (08:26→22:51)
[2022-01-23 08:51] LABS: BUN Creatinine Ratio 17.1 (10-20); Calcium 9.5 mg/dl (8.5-10.1); Est GFR (Non-African American) 38.9 ml/min; Magnesium 2.1 mg/dl (1.7-2.4); Potassium 3.7 mmol/L (3.5-5.1)
--- NOTE | 2022-01-23 11:27 | Discharge Summary ---
Date of Service January 23, 2022 Admission HPI Per Admitting Provider This is a 76-year-old gentleman with a history of class III HFpEF and hypertensive heart disease, COPD, type 2 diabetes, restrictive cardiomyopathy, GERD, acute on chronic diastolic heart failure, obesity hypoventilation syndrome, obstructive sleep apnea BPH, CKD 3, hypertension, hyperlipidemia who presents to [facility] for bilateral lower extremity swelling and shortness of breath for 1 week. Of note, patient was seen by his rhit earlier today, where he was noted to have a 10 pound weight gain. He reports abdominal distention and difficulty putting on his clothes because of this. Cardiology note from Dr. Griffin reviewed. Patient had high salt diet this past week, including canned foods and lunch meats. He also endorses missing multiple doses of his afternoon diuretics. He also did not take his metolazone this week. To me, patient also reports not wearing his CPAP. Of note, patient does report intermittent history of chest pain over the last few months. He says it comes and goes, lasts a minute, and is not associated with exertion. He describes it as a substernal pressure. Sometimes it radiates up his neck; he does not think it radiates either of his arms. He does endorse a significant history of GERD, he is unsure whether or not these 2 would be related. Medications review: Albuterol, aspirin, atorvastatin, ferrous gluconate, fluoxetine, Breo Ellipta, Lasix 160 mg twice daily, metolazone 2.5 mg weekly, metoprolol succinate 100 mg, omeprazole, potassium, spironolactone 50 mg twice daily. Last TTE in 2019 demonstrating LVEF 60 to 65%, normal LV function, normal valve structure and function. In the ER, patient was found to have normal vital signs. He was found to have abdominal distention and lower extremity edema. Labs notable for mild leukocytosis to 11 mild monocytosis to 1.27, persistent normocytic anemia at 12.6, sodium 136, BUN 19, creatinine 1.41 (baseline 1.4 - 1.6), blood sugar 213. Troponin negative. Covid negative. Chest x-ray demonstrating cardiomegaly without pulmonary findings. ECG demonstrating right bundle branch block without appreciable conduction abnormalities. He received a lower extremity Doppler ultrasound, which did not reveal evidence of DVT. He received Lasix 40mg IV x 1. Upon further hospitalization, cardiolgy was consulted and patient continued diuresis. He made good progress and was deemed stable enough to be discharged. Jardiance was addedd to his regimen to help with blood glucose control as well as cardiac function Principal Diagnosis Acute HFwPEF Discharge Exam The patient is awake, alert and oriented 3, well developed and well nourished, normocephalic and atraumatic, lying in bed and in no acute distress. HEENT--PERRL, EOMI, mucous membranes and oropharynx mildly dry Neck--supple. No JVD. No bruits. Thyroid normal, trachea midline, no adenopathy. Heart--normal S1 and S2. No murmurs, rubs or gallops. Lungs--clear bilaterally, no respiratory distress, no accessory muscle use. Abdomen--normal bowel sounds and soft. Mild epigastric and left sided abdominal pain Extremities--no cyanosis or clubbing. No edema. Dermatologic--normal skin turgor, normal color, no abnormal lymph nodes, no rash. Neurologic--cranial nerves II through XII grossly intact. Rheumatologic--normal range of motion. Psychiatric--normal affect. Discharge Data Allergies Allergy/AdvReac Type Severity Reaction Status Date / Time adhesive tape Allergy Mild Redness of Verified 01/20/22 16:47 Skin Iodinated Contrast Media AdvReac Intermediate Gastrointestinal Verified 01/20/22 16:47 Upset Consultations 01/20/22 21:37 ED Decision to Admit Stat 01/20/22 21:39 Consult Cardiology Routine Ordered Studies 01/20/22 16:40 US venous doppler LE Urgent Diabetes Follow up Diabetes Follow-up Needed for HgbA1c >9% Hospital Course (1) Acute heart failure with preserved ejection fraction (HFpEF): This is a 76-year-old gentleman with a history of class III HFpEF, COPD, type 2 diabetes, restrictive cardiomyopathy, GERD, obesity hypoventilation syndrome, obstructive sleep apnea,BPH, CKD 3, hypertension, hyperlipidemia who presents for bilateral lower extremity swelling and shortness of breath for 1 week in the setting of +10lb weight gain, dietary indiscretion, and medication adherence difficulties. He also reports intermittent chest pain. His presentation is concerning for acute HFpEF. Roath-ef-Gpfmmat HFpEF Patient with known history of class III HFpEF and hypertensive heart disease; last TTE in 2019 demonstrating LVEF 60 to 65% with normal biventricular/valvular function -Echo here again LVEF 60-65%, no significant valvular disease, no wall motion abnormalities On history, patient reporting missing multiple doses of his Lasix especially for the afternoon dose, missed his weekly metolazone; he also endorses a high salt diet over the last few weeks (soup, deli meats, takeout) Troponin negative, ECG without acute/new abnormalities Chest x-ray without any acute pulmonary findings BNP on arrival interestingly at 69 Home medications: Furosemide 160 twice daily, metolazone 2.5 mg weekly, spironolactone 50 mg twice daily, metoprolol succinate 100mg --> Hold metolazone and home Lasix while giving IV diuresis Improving, he has lost 2 kg of body weight and is net -2.0 L so far, peripheral edema and abdominal distention improved Creatinine with slight bump up today to 1.6 -Continue Lasix 80 mg IV every 8 hours and watch for further rising creatinine -Continue spironolactone 50 mg p.o. twice daily -Continue strict I's and O's, daily weights, low-sodium diet, fluid restriction 1500 mL Consult dietitian: Appreciate education and dietary review/recommendations on sodium intake to prevent future exacerbations Can consider transition to a simpler, once a day regimen such as high-dose torsemide on discharge which may be better absorbed in the gut Encouraged CPAP compliance Consult Ellen cardiology: Appreciate insight and recommendations-recommend also adding on Jardiance for cardiovascular benefits in addition to diabetes control-ordered for her on discharge as this is covered by his insurance Monitor BMP, magnesium, keep magnesium and potassium replete -Continue to monitor on telemetry for arrhythmia-none so far (2) Type 2 diabetes mellitus: Patient with known history of diabetes, last A1c at 10.2% in 12/2021- uncontrolled With ongoing hyperglycemia here Increase Lantus back to home dose of 30 units twice daily Continue NovoLog sliding scale Given concerns with medications for heart failure, may wish to investigate diabetes understanding/compliance during this stay, and consider diabetes education consultation -Cardiology suggested adding on Jardiance 10 mg p.o. once daily for cardiovascular benefits as well as diabetes control-this was rogers checked and is affordable for patient at $19.50 per month-we will prescribe at discharge (3) Chest discomfort: Patient reporting several month history of intermittent, substernal, pressure-like chest discomfort that is not associated with exertion Patient does have numerous risk factors for ASCVD, including obesity, previous tobacco use, diabetes, hyperlipidemia, hypertension ECG without acute conduction or repolarization abnormalities, troponin negative on arrival Echo here without regional wall motion abnormalities May also represent gastroesophageal reflux/dyspepsia in the setting of increasing mass-effect from suspected fluid in the abdominal cavity; no evidence of pulmonary process at present (4) GERD (gastroesophageal reflux disease): Continue PPI (5) CKD (chronic kidney disease), stage III: History noted. Baseline creatinine appears to be between 1.41.6, closer to the higher end Monitor BMP in setting of scheduled Lasix-creatinine slightly up today at 1.6 Avoid nephrotoxic medications (6) Sleep apnea: Patient with noted history of sleep apnea; he endorses infrequent use of CPAP at home -Added 3 L nasal cannula O2 at bedtime while in the hospital which is what he does at home but he will try to use his CPAP at home when he gets discharged (7) Obesity hypoventilation syndrome: History noted, encourage weight loss/diabetes management/dietary education as above (8) Hypertension: Blood pressures here are controlled Continue diuresis, metoprolol, spironolactone Of note, cardiology notes that he cannot tolerate KRISTYN inhibitors in the past due to renal failure (9) Hyperlipidemia: Continue atorvastatin 20 mg daily. (10) Morbid obesity: BMI 44.0 Needs weight loss (11) COPD (chronic obstructive pulmonary disease): Stable, no acute issues Continue home maintenance inhalers Albuterol as needed Code: Full code - discussed at bedside w/ patient and DVT PPX: Hep 7500U t.i.d. Disposition-continued stay on med telemetry, but possible discharge to home on Monday if continues to diurese and is improved Total Time Total Time Spent Total Time Spent (In Minutes): 35 Discharge Plan Discharge Items Patient Disposition: Home - Self-Care Reason For Visit: ACUTE HFPEF Discharge Diagnosis: Acute HFwPEF, resolved Condition on Discharge: Good Activity: Resume your previous activity Non-emergency contact: Primary Care Provider and Licensed Practical Nurse Clinic Nurse Call non-emergency contact if: you have any medication questions and your symptoms worsen Follow-up/Referrals: Arnie Ng MD [Primary Care Provider] - Diet: Heart Healthy Addtl Attending Provider Instructions: please follow up with your regular PCP and rhit Pending Studies at Discharge: No Stand-Alone Forms: My [facility], Smoking Cessation Medications and DC Order Prescriptions: New Jardiance 10 mg tablet 10 mg PO QAM Qty: 30 RF: 0 Continued metoprolol succinate 100 mg tablet extended release 24 hr See Rx Instructions .ROUTE .COMPLEX RF: 0 (DME) Oxygen Home Liters Per Minute See Rx Instructions .ROUTE RF: 0 omeprazole 20 mg capsule,delayed release(DR/EC) 20 mg PO QAM RF: 0 potassium chloride 20 mEq Tablet Extended Release 20 meq PO QAM RF: 0 furosemide 80 mg tablet 160 mg PO BID RF: 0 aspirin [Aspirin Low Dose] 81 mg Tablet,Delayed Release (Dr/Ec) 162 mg PO QAM RF: 0 spironolactone 50 mg tablet 50 mg PO BID RF: 0 fluoxetine 20 mg capsule See Rx Instructions .ROUTE .COMPLEX RF: 0 lorazepam 0.5 mg tablet 0.5 mg sublingual Q6H PRN (Reason: Anxiety) RF: 0 albuterol sulfate 90 mcg/actuation HFA aerosol inhaler 2 puff INHALATION Q4H PRN (Reason: Shortness Of Breath Or Wheezing) RF: 0 metolazone 2.5 mg tablet 2.5 mg PO WK RF: 0 atorvastatin 20 mg Tablet 20 mg PO DAILY RF: 0 ferrous gluconate 324 mg (38 mg iron) Tablet 324 mg PO BID RF: 0 cholecalciferol (vitamin D3) [Vitamin D3] 50 mcg (2,000 unit) Capsule 50 mcg PO DAILY RF: 0 Basaglar KwikPen U-100 Insulin 100 unit/mL (3 mL) Insulin Pen See Rx Instructions .ROUTE .COMPLEX RF: 0 Breo Ellipta 100-25 mcg/dose Blister With Device 1 inh INHALATION DAILY RF: 0 Discharge Orders: Discharge Order (Routine); Ordered 01/23/22 Ordered By: Vernon Kennedy Admission Data Admit Date/Time: 01/20/22 21:39 Attending Provider: Vernon Kennedy Admit Provider: Jr Painter Primary Care Provider: Arnie Ng Other Providers: Ricky Rosenbaum ; Anand Locke ; Jose L Griffin ; Jose Elias Oglesby ; Patrick Sanchez ; Russell Butler ; Shruthi Menjivar ; Eva Carranza ; Lakshmi Brennan ; Prince Strickland ; Joyce Restrepo Coding Level of Care Code D/C DAY MANAGEMENT >30 MINS Diagnoses Acute heart failure with preserved ejection fraction (HFpEF) I50.31 Type 2 diabetes mellitus E11.9 Chest discomfort R07.89 GERD (gastroesophageal reflux disease) K21.9 Esophagitis presence: esophagitis presence not specified CKD (chronic kidney disease), stage III N18.3 Sleep apnea G47.30 Sleep apnea type: unspecified type Obesity hypoventilation syndrome E66.2 Hypertension I10 Hypertension type: essential hypertension Hyperlipidemia E78.5 Hyperlipidemia type: unspecified Morbid obesity E66.01 COPD (chronic obstructive pulmonary disease) J44.9 Time Spent (min) 35
--- NOTE | 2022-01-23 12:58 | Cardiology Progress Note ---
Date of Service January 23, 2022 Assessment & Plan (1) Acute heart failure with preserved ejection fraction (HFpEF): (2) Restrictive cardiomyopathy: (3) Obstructive sleep apnea: (4) CKD (chronic kidney disease) stage 3, GFR 30-59 ml/min: Plan: Patient is a 76-year-old male with longstanding history of restrictive cardiomyopathy and diastolic heart failure, morbid obesity with pickwickian phenomena. Patient presents now with acute on chronic decompensated diastolic heart failure right greater than left. He is responding to IV diuretics. Patient in the past has responded poorly to KRISTYN inhibitor including acute renal failure. Would not use in this indication. Continue oral metoprolol succinate, spironolactone Would investigate if patient insurance coverage available for Jardiance 10 mg p.o. daily for both hyperglycemia and diastolic dysfunction Use of BiPAP imperative remains significantly volume overloaded on exam clinically, not back to baseline will cont IV diuresis monitor lytes and replete as necessary Admission and Anticipated Discharge Date Admission Date: January 20, 2022 Subjective Pt seen and examined, chart reviewed, at bedside. States that he feels ok but not back to baseline. Still with significant abdominal distention and LE edema, worse from baseline. Breathing somewhat improved but not at baseline Review of Systems Review of Systems: All systems reviewed & are unremarkable except as noted in HPI & below Physical Exam Physical Exam: General: Awake, alert and oriented x 3. No acute distress. HEENT: Normocephalic, atraumatic. Pupils equal, round and reactive to light and accommodation. Extraocular muscles are intact. Anicteric sclera. Moist mucous membranes. Neck: No JVD. No bruit. Cardiovascular: Regular. Positive S-4. Normal S-1 and S-2. No S-3. No murmurs or rubs. Pulmonary: Clear to auscultation B/L. No rales, rhonchi or wheezing Abdomen: Distended with significant fluid wave Extremities: No clubbing, cyanosis. +1 bilateral lower extremity pitting +2 pedal pulses bilaterally. Skin: Chronic lower extremity venous stasis changes Results & Data ([facility]) Vital Signs (Past 12 Hours) Vital Signs Temp Pulse Pulse Resp BP BP Pulse Ox 01/23/22 12:30 36.7 C 73 21 117/78 107/64 93 01/23/22 11:37 36.7 C 73 21 117/78 93 01/23/22 07:11 36.6 C 72 21 138/82 98 01/23/22 07:00 72 01/23/22 03:32 36.8 C 79 18 131/77 91
[2022-01-23] MEDS ORDERED: POTASSIUM CHLORIDE CRTAB 20 MEQ TABCR PO STA (13:00)
--- NOTE | 2022-01-23 16:24 | Hospitalist Progress Note ---
Date of Service January 23, 2022 Assessment & Plan (1) Acute heart failure with preserved ejection fraction (HFpEF): Plan: This is a 76-year-old gentleman with a history of class III HFpEF, COPD, type 2 diabetes, restrictive cardiomyopathy, GERD, obesity hypoventilation syndrome, obstructive sleep apnea,BPH, CKD 3, hypertension, hyperlipidemia who presents for bilateral lower extremity swelling and shortness of breath for 1 week in the setting of +10lb weight gain, dietary indiscretion, and medication adherence difficulties. He also reports intermittent chest pain. His presentation is concerning for acute HFpEF. Olmqn-dw-Yqrxvcb HFpEF Patient with known history of class III HFpEF and hypertensive heart disease; last TTE in 2019 demonstrating LVEF 60 to 65% with normal biventricular/valvular function -Echo here again LVEF 60-65%, no significant valvular disease, no wall motion abnormalities On history, patient reporting missing multiple doses of his Lasix especially for the afternoon dose, missed his weekly metolazone; he also endorses a high salt diet over the last few weeks (soup, deli meats, takeout) Troponin negative, ECG without acute/new abnormalities Chest x-ray without any acute pulmonary findings Continue Lasix 80 mg IV every 8 hours and watch for further rising creatinine -Continue spironolactone 50 mg p.o. twice daily -Continue strict I's and O's, daily weights, low-sodium diet, fluid restriction 1500 mL -on exam, leg edema has resolved, patient say breathing is also much improved cardiology on consult (2) Type 2 diabetes mellitus: Plan: Patient with known history of diabetes, last A1c at 10.2% in 12/2021- uncontrolled With ongoing hyperglycemia here Increase Lantus back to home dose of 30 units twice daily Continue NovoLog sliding scale Given concerns with medications for heart failure, may wish to investigate diabetes understanding/compliance during this stay, and consider diabetes education consultation -Cardiology suggested adding on Jardiance 10 mg p.o. once daily for cardiovascular benefits as well as diabetes control-this was rogers checked and is affordable for patient at $19.50 per month-we will prescribe at discharge (3) Chest discomfort: Plan: Patient reporting several month history of intermittent, substernal, pressure- like chest discomfort that is not associated with exertion Patient does have numerous risk factors for ASCVD, including obesity, previous tobacco use, diabetes, hyperlipidemia, hypertension ECG without acute conduction or repolarization abnormalities, troponin negative on arrival Echo here without regional wall motion abnormalities chest pain now resolved (4) GERD (gastroesophageal reflux disease): Plan: Continue PPI (5) CKD (chronic kidney disease), stage III: Plan: History noted. Baseline creatinine appears to be between 1.41.6, closer to the higher end Monitor BMP in setting of scheduled Lasix-creatinine slightly up today at 1.6 Avoid nephrotoxic medications (6) Sleep apnea: Plan: Patient with noted history of sleep apnea; he endorses infrequent use of CPAP at home -Added 3 L nasal cannula O2 at bedtime while in the hospital which is what he does at home but he will try to use his CPAP at home when he gets discharged (7) Obesity hypoventilation syndrome: Plan: History noted, encourage weight loss/diabetes management/dietary education as above (8) Hypertension: Plan: Blood pressures here are controlled Continue diuresis, metoprolol, spironolactone Of note, cardiology notes that he cannot tolerate KRISTYN inhibitors in the past due to renal failure (9) Hyperlipidemia: Plan: Continue atorvastatin 20 mg daily. (10) Morbid obesity: Plan: BMI 44.0 Needs weight loss (11) COPD (chronic obstructive pulmonary disease): Plan: Stable, no acute issues Continue home maintenance inhalers Albuterol as needed Plan: Code: Full code - discussed at bedside w/ patient and DVT PPX: Hep 7500U t.i.d. Disposition-continued stay on med telemetry, but possible discharge to home on Monday if continues to diurese and is improved Admission and Anticipated Discharge Date Admission Date: January 20, 2022 Subjective Patient seen and examined today, says shortness of breath is much improved, states leg swelling also improved Review of Systems Review of Systems: All systems reviewed are negative, apart from the ones contained in the history. Physical Exam Physical Exam: The patient is awake, alert and oriented 3, well developed and well nourished, normocephalic and atraumatic, lying in bed and in no acute distress. HEENT--PERRL, EOMI, mucous membranes and oropharynx mildly dry Neck--supple. No JVD. No bruits. Thyroid normal, trachea midline, no adenopathy. Heart--normal S1 and S2. No murmurs, rubs or gallops. Lungs--clear bilaterally, no respiratory distress, no accessory muscle use. Abdomen--normal bowel sounds and soft. Mild epigastric and left sided abdominal pain Extremities--no cyanosis or clubbing. No edema. Dermatologic--normal skin turgor, normal color, no abnormal lymph nodes, no rash. Neurologic--cranial nerves II through XII grossly intact. Rheumatologic--normal range of motion. Psychiatric--normal affect. Results & Data Results & Data ([facility]) Vital Signs (Past 12 Hours) Vital Signs Temp Pulse Pulse Resp BP BP Pulse Ox 01/23/22 15:40 98.4 F 83 20 132/82 94 01/23/22 15:34 78 01/23/22 12:30 98.1 F 73 21 117/78 107/64 93 01/23/22 11:37 98.1 F 73 21 117/78 93 01/23/22 07:11 97.9 F 72 21 138/82 98 01/23/22 07:00 72 Laboratory Results Laboratory Results - last 24 hr 01/22/22 01/22/22 01/23/22 16:32 20:19 07:33 Sodium Potassium Chloride Carbon Dioxide Anion Gap BUN Creatinine Est Cr Clr Drug Dosing Est GFR ( Amer) Est GFR (Non-Af Amer) BUN/Creatinine Ratio Glucose POC Glucose 130 H 176 H 176 H Calcium Magnesium 01/23/22 01/23/22 07:36 11:42 Sodium 138 Potassium 3.7 Chloride 98 Carbon Dioxide 33 H Anion Gap 7 BUN 29 H Creatinine 1.70 H Est Cr Clr Drug Dosing 55.0 Est GFR ( Amer) 45.0 Est GFR (Non-Af Amer) 38.9 BUN/Creatinine Ratio 17.1 Glucose 176 H POC Glucose 224 H Calcium 9.5 Magnesium 2.1 PG Care Time/CCT Total # of Minutes Spent Total Time Spent with Patient: Total time spent is greater than 50% in coordination of care (as documented) at patient's floor/unit and/or counseling patient: Coding Level of Care Code 13869 Subseq Hosp Care Lvl 2 Diagnoses Acute heart failure with preserved ejection fraction (HFpEF) I50.31 Type 2 diabetes mellitus E11.9 Chest discomfort R07.89 GERD (gastroesophageal reflux disease) K21.9 Esophagitis presence: esophagitis presence not specified CKD (chronic kidney disease), stage III N18.3 Sleep apnea G47.30 Sleep apnea type: unspecified type Obesity hypoventilation syndrome E66.2 Hypertension I10 Hypertension type: essential hypertension Hyperlipidemia E78.5 Hyperlipidemia type: unspecified Morbid obesity E66.01 COPD (chronic obstructive pulmonary disease) J44.9 Time Spent (min) 35 (1) GERD (gastroesophageal reflux disease) Esophagitis presence: esophagitis presence not specified Qualified Code(s): K21.9 - Gastro-esophageal reflux disease without esophagitis (2) Sleep apnea Sleep apnea type: unspecified type Qualified Code(s): G47.30 - Sleep apnea, unspecified (3) Hypertension Hypertension type: essential hypertension Qualified Code(s): I10 - Essential (primary) hypertension (4) Hyperlipidemia Hyperlipidemia type: unspecified Qualified Code(s): E78.5 - Hyperlipidemia, unspecified
[2022-01-24] MEDS: HEPARIN SOD 5,000 UNIT/0.5 ML VIAL SQ SCH ×2 (05:56→13:20)
[2022-01-24] MEDS: INSULIN ASPART PER UNIT SC SCH ×2 (08:03→11:57)
[2022-01-24] MEDS: INSULIN GLARGINE SOLOSTAR 100 UNITS/ML 3 ML PEN SC SCH (08:03)
[2022-01-24] MEDS: PANTOprazole 40 MG TAB PO SCH (08:23)
[2022-01-24] MEDS: CHOLECALCIFEROL 1,000 UNITS 25 MCG TAB PO SCH (08:23)
[2022-01-24] MEDS: METOPROLOL SUCC 50MG EXT REL TAB PO SCH (08:24)
[2022-01-24] MEDS: ASPIRIN 81 MG ECTAB PO SCH (08:24)
[2022-01-24] MEDS: FERROUS GLUCONATE 324 MG TAB PO SCH (08:24)
[2022-01-24] MEDS: SPIRONOLACTONE 25 MG TAB PO SCH (08:24)
[2022-01-24] MEDS: ATORVASTATIN 20 MG TAB PO SCH (08:25)
[2022-01-24] MEDS: POTASSIUM CHLORIDE CRTAB 20 MEQ TABCR PO SCH (08:25)
[2022-01-24] MEDS: FLUoxetine HCL 20 MG CAP PO SCH (08:25)
[2022-01-24] MEDS: FUROSEMIDE 40 MG/4 ML VIAL IV SCH (08:26)
[2022-01-24] MEDS: FLUTICASONE/VILANTEROL 100/25MCG 14 PUFFS/INHALER INH SCH (08:26)
--- NOTE | 2022-01-24 09:08 | Cardiology Progress Note ---
Date of Service January 24, 2022 Assessment & Plan (1) Acute heart failure with preserved ejection fraction (HFpEF): (2) Restrictive cardiomyopathy: (3) Obstructive sleep apnea: (4) CKD (chronic kidney disease) stage 3, GFR 30-59 ml/min: Plan: Patient is a 76-year-old male with longstanding history of restrictive cardiomyopathy and diastolic heart failure, morbid obesity with pickwickian phenomena. Patient presents now with acute on chronic decompensated diastolic heart failure right greater than left. He is responding well to IV diuretics. Patient in the past has responded poorly to KRISTYN inhibitor including acute renal failure. Would not use in this indication. Continue oral metoprolol succinate, spironolactone Would investigate if patient insurance coverage available for Jardiance 10 mg p.o. daily for both hyperglycemia and diastolic dysfunction Use of BiPAP imperative Volume status seems to be back to baseline- slight increase in sCr to 1.78 with hyponatremia Hold IV Lasix this afternoon, Transition to PO torsemide 100 mg daily. Patient having difficulty with twice a day dosing with diuretics at home. There is a chance he is not taking the full dosing of diuretics as ordered. Will attempt once a day dosing to improve compliance. Monitor lytes and replete as necessary Case discussed with Dr. Rosenbaum Admission and Anticipated Discharge Date Admission Date: January 20, 2022 Supervising Physician Co-Signing Physician Notes Patient seen and examined with Lakshmi CLAYTON. Agree with findings and assessment as above. Pt no longer examines as volume overloaded, ok to d/c to home with above medication changes. Subjective Pt seen and examined, chart reviewed, States that he feels back to baseline. Abdominal distention minimal and lower extremity edema resolved. Breathing somewhat improved. Able to get up and ambulate in the room without difficulty. Tele: SR 60-70s I&O: -4L Weight: 143 >> 141.4 kg (01/24) Review of Systems Review of Systems: All systems reviewed & are unremarkable except as noted in HPI & below Physical Exam Physical Exam: General: Awake, alert and oriented x 3. No acute distress. HEENT: Normocephalic, atraumatic. Pupils equal, round and reactive to light and accommodation. Extraocular muscles are intact. Anicteric sclera. Moist mucous membranes. Neck: No JVD. No bruit. Cardiovascular: Regular. Positive S-4. Normal S-1 and S-2. No S-3. No murmurs or rubs. Pulmonary: Clear to auscultation B/L. No rales, rhonchi or wheezing Abdomen: Soft, distended Extremities: No clubbing, cyanosis. Trace BLLE edema +2 pedal pulses bilaterally. Skin: Chronic lower extremity venous stasis changes Results & Data ([facility]) Vital Signs (Past 12 Hours) Vital Signs Temp Pulse Pulse Resp BP BP Pulse Ox 01/24/22 08:19 36.5 C 74 22 121/74 91 01/24/22 04:10 36.7 C 73 125/94 92 01/23/22 23:13 78 01/23/22 23:08 37.1 C 77 18 127/78 97 Laboratory Results Intake and Output 01/23/22 01/24/22 01/24/22 22:59 06:59 14:59 Intake Total 275 / 995 250 / 995 Output Total 800 / 2376 375 / 2376 Balance -525 / -1381 -125 / -1381 Intake: Oral 275 / 995 250 / 995 Output: Urine 800 / 2375 375 / 2375 Other: Weight 142.9 kg 141.4 kg Weight Measurement Method Built in Bedscale Standing Scale Patient Weight 01/25/22 06:59 Weight 141.4 kg Diagnostic Findings Echo 01/21/2022 Technically limited Mild LVH LVEF 60-65% grade 1 diastolic dysfunction No significant valve disease
[2022-01-24 10:25] LABS: BUN Creatinine Ratio 15.7 (10-20); Creatinine Clr Calc Pharmacy 52.4 ml/min; Est GFR (African American) 42.6 ml/min; Est GFR (Non-African American) 36.8 ml/min; Magnesium 2.1 mg/dl (1.7-2.4); Potassium 4.2 mmol/L (3.5-5.1)
--- NOTE | 2022-01-24 15:08 | Discharge Summary ---
Date of Service January 24, 2022 Admission HPI Per Admitting Provider This is a 76-year-old gentleman with a history of class III HFpEF and hypertensive heart disease, COPD, type 2 diabetes, restrictive cardiomyopathy, GERD, acute on chronic diastolic heart failure, obesity hypoventilation syndrome, obstructive sleep apnea BPH, CKD 3, hypertension, hyperlipidemia who presents to [facility] for bilateral lower extremity swelling and shortness of breath for 1 week. Of note, patient was seen by his phone representative earlier today, where he was noted to have a 10 pound weight gain. He reports abdominal distention and difficulty putting on his clothes because of this. Cardiology note from Dr. Griffin reviewed. Patient had high salt diet this past week, including canned foods and lunch meats. He also endorses missing multiple doses of his afternoon diuretics. He also did not take his metolazone this week. To me, patient also reports not wearing his CPAP. Of note, patient does report intermittent history of chest pain over the last few months. He says it comes and goes, lasts a minute, and is not associated with exertion. He describes it as a substernal pressure. Sometimes it radiates up his neck; he does not think it radiates either of his arms. He does endorse a significant history of GERD, he is unsure whether or not these 2 would be related. Medications review: Albuterol, aspirin, atorvastatin, ferrous gluconate, fluoxetine, Breo Ellipta, Lasix 160 mg twice daily, metolazone 2.5 mg weekly, metoprolol succinate 100 mg, omeprazole, potassium, spironolactone 50 mg twice daily. Last TTE in 2019 demonstrating LVEF 60 to 65%, normal LV function, normal valve structure and function. In the ER, patient was found to have normal vital signs. He was found to have abdominal distention and lower extremity edema. Labs notable for mild leukocytosis to 11 mild monocytosis to 1.27, persistent normocytic anemia at 12.6, sodium 136, BUN 19, creatinine 1.41 (baseline 1.4 - 1.6), blood sugar 213. Troponin negative. Covid negative. Chest x-ray demonstrating cardiomegaly without pulmonary findings. ECG demonstrating right bundle branch block without appreciable conduction abnormalities. He received a lower extremity Doppler ultrasound, which did not reveal evidence of DVT. He received Lasix 40mg IV x 1. Upon further hospitalization, cardiolgy was consulted and patient continued diuresis. He made good progress and was deemed stable enough to be discharged. Jardiance was addedd to his regimen to help with blood glucose control as well as cardiac function Principal Diagnosis acute HFwPEF Discharge Exam The patient is awake, alert and oriented 3, well developed and well nourished, normocephalic and atraumatic, lying in bed and in no acute distress. HEENT--PERRL, EOMI, mucous membranes and oropharynx mildly dry Neck--supple. No JVD. No bruits. Thyroid normal, trachea midline, no adenopathy. Heart--normal S1 and S2. No murmurs, rubs or gallops. Lungs--clear bilaterally, no respiratory distress, no accessory muscle use. Abdomen--normal bowel sounds and soft. Mild epigastric and left sided abdominal pain Extremities--no cyanosis or clubbing. No edema. Dermatologic--normal skin turgor, normal color, no abnormal lymph nodes, no rash. Neurologic--cranial nerves II through XII grossly intact. Rheumatologic--normal range of motion. Psychiatric--normal affect. Discharge Data Allergies Allergy/AdvReac Type Severity Reaction Status Date / Time adhesive tape Allergy Mild Redness of Verified 01/20/22 16:47 Skin Iodinated Contrast Media AdvReac Intermediate Gastrointestinal Verified 01/20/22 16:47 Upset Consultations 01/20/22 21:37 ED Decision to Admit Stat 01/20/22 21:39 Consult Cardiology Routine Ordered Studies 01/20/22 16:40 US venous doppler LE Urgent Diabetes Follow up Diabetes Follow-up Needed for HgbA1c >9% Hospital Course (1) Acute heart failure with preserved ejection fraction (HFpEF): This is a 76-year-old gentleman with a history of class III HFpEF, COPD, type 2 diabetes, restrictive cardiomyopathy, GERD, obesity hypoventilation syndrome, obstructive sleep apnea,BPH, CKD 3, hypertension, hyperlipidemia who presents for bilateral lower extremity swelling and shortness of breath for 1 week in the setting of +10lb weight gain, dietary indiscretion, and medication adherence difficulties. He also reports intermittent chest pain. His presentation is concerning for acute HFpEF. [id number] HFpEF Patient with known history of class III HFpEF and hypertensive heart disease; last TTE in 2019 demonstrating LVEF 60 to 65% with normal biventricular/valvular function -Echo here again LVEF 60-65%, no significant valvular disease, no wall motion abnormalities On history, patient reporting missing multiple doses of his Lasix especially for the afternoon dose, missed his weekly metolazone; he also endorses a high salt diet over the last few weeks (soup, deli meats, takeout) Troponin negative, ECG without acute/new abnormalities Chest x-ray without any acute pulmonary findings change to PO Torsemide 100mg daily -Continue spironolactone 50 mg p.o. twice daily -Continue strict I's and O's, daily weights, low-sodium diet, fluid restriction 1500 mL -on exam, leg edema has resolved, patient say breathing is also much improved cardiology on consult (2) Type 2 diabetes mellitus: Patient with known history of diabetes, last A1c at 10.2% in 12/2021- uncontrolled With ongoing hyperglycemia here Increase Lantus back to home dose of 30 units twice daily Continue NovoLog sliding scale Given concerns with medications for heart failure, may wish to investigate diabetes understanding/compliance during this stay, and consider diabetes education consultation -Cardiology suggested adding on Jardiance 10 mg p.o. once daily for cardiovascular benefits as well as diabetes control-this was rogers checked and is affordable for patient at $19.50 per month-we will prescribe at discharge (3) Chest discomfort: Patient reporting several month history of intermittent, substernal, pressure-like chest discomfort that is not associated with exertion Patient does have numerous risk factors for ASCVD, including obesity, previous tobacco use, diabetes, hyperlipidemia, hypertension ECG without acute conduction or repolarization abnormalities, troponin negative on arrival Echo here without regional wall motion abnormalities chest pain now resolved (4) GERD (gastroesophageal reflux disease): Continue PPI (5) CKD (chronic kidney disease), stage III: History noted. Baseline creatinine appears to be between 1.41.6, closer to the higher end Monitor BMP in setting of scheduled Lasix-creatinine slightly up today at 1.6 Avoid nephrotoxic medications (6) Sleep apnea: Patient with noted history of sleep apnea; he endorses infrequent use of CPAP at home -Added 3 L nasal cannula O2 at bedtime while in the hospital which is what he does at home but he will try to use his CPAP at home when he gets discharged (7) Obesity hypoventilation syndrome: History noted, encourage weight loss/diabetes management/dietary education as above (8) Hypertension: Blood pressures here are controlled Continue diuresis, metoprolol, spironolactone Of note, cardiology notes that he cannot tolerate KRISTYN inhibitors in the past due to renal failure (9) Hyperlipidemia: Continue atorvastatin 20 mg daily. (10) Morbid obesity: BMI 44.0 Needs weight loss (11) COPD (chronic obstructive pulmonary disease): Stable, no acute issues Continue home maintenance inhalers Albuterol as needed Code: Full code - discussed at bedside w/ patient and DVT PPX: Hep 7500U t.i.d. 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 Call non-emergency contact if: you have any medication questions and your symptoms worsen Follow-up/Referrals: Arnie Ng MD [Primary Care Provider] - Diet: Heart Healthy Addtl Attending Provider Instructions: please follow up with your regular PCP and phone representative Pending Studies at Discharge: No Stand-Alone Forms: My [employer], Smoking Cessation Medications and DC Order Prescriptions: New Jardiance 10 mg tablet 10 mg PO QAM Qty: 30 RF: 0 torsemide 100 mg Tablet 100 mg PO DAILY 30 Days Qty: 30 RF: 0 Continued metoprolol succinate 100 mg tablet extended release 24 hr See Rx Instructions .ROUTE .COMPLEX RF: 0 (DME) Oxygen Home Liters Per Minute See Rx Instructions .ROUTE RF: 0 omeprazole 20 mg capsule,delayed release(DR/EC) 20 mg PO QAM RF: 0 potassium chloride 20 mEq Tablet Extended Release 20 meq PO QAM RF: 0 aspirin [Aspirin Low Dose] 81 mg Tablet,Delayed Release (Dr/Ec) 162 mg PO QAM RF: 0 spironolactone 50 mg tablet 50 mg PO BID RF: 0 fluoxetine 20 mg capsule See Rx Instructions .ROUTE .COMPLEX RF: 0 lorazepam 0.5 mg tablet 0.5 mg sublingual Q6H PRN (Reason: Anxiety) RF: 0 albuterol sulfate 90 mcg/actuation HFA aerosol inhaler 2 puff INHALATION Q4H PRN (Reason: Shortness Of Breath Or Wheezing) RF: 0 metolazone 2.5 mg tablet 2.5 mg PO WK RF: 0 atorvastatin 20 mg Tablet 20 mg PO DAILY RF: 0 ferrous gluconate 324 mg (38 mg iron) Tablet 324 mg PO BID RF: 0 cholecalciferol (vitamin D3) [Vitamin D3] 50 mcg (2,000 unit) Capsule 50 mcg PO DAILY RF: 0 Basaglar KwikPen U-100 Insulin 100 unit/mL (3 mL) Insulin Pen See Rx Instructions .ROUTE .COMPLEX RF: 0 Breo Ellipta 100-25 mcg/dose Blister With Device 1 inh INHALATION DAILY RF: 0 Discontinued furosemide 80 mg tablet 160 mg PO BID RF: 0 Discharge Orders: Discharge Order (Routine); Ordered 01/24/22 Ordered By: Vernon Kennedy Admission Data Admit Date/Time: 01/20/22 21:39 Attending Provider: Vernon Kennedy Admit Provider: Jr Painter Primary Care Provider: Arnie Ng Other Providers: Ricky Rosenbaum ; Anand Locke ; Jose L Griffin ; Jose Elias Oglesby ; Patrick Sanchez ; Russell Butler ; Shruthi Menjivar ; Eva Carranza ; Lakshmi Brennan. ; Prince Strickland ; Joyce Restrepo Other Interventions: Discharge Summary Assessment (RN) Last Done: 01/23/22 12:30 Coding Level of Care Code D/C DAY MANAGEMENT >30 MINS Diagnoses Acute heart failure with preserved ejection fraction (HFpEF) I50.31 Type 2 diabetes mellitus E11.9 Chest discomfort R07.89 GERD (gastroesophageal reflux disease) K21.9 Esophagitis presence: esophagitis presence not specified CKD (chronic kidney disease), stage III N18.3 Sleep apnea G47.30 Sleep apnea type: unspecified type Obesity hypoventilation syndrome E66.2 Hypertension I10 Hypertension type: essential hypertension Hyperlipidemia E78.5 Hyperlipidemia type: unspecified Morbid obesity E66.01 COPD (chronic obstructive pulmonary disease) J44.9 Time Spent (min) 35
[2022-01-25] MEDS ORDERED: TORSEMIDE 100 MG TAB PO SCH (09:00)
== END 2022-01-24 16:12 | disposition home health service (06) | DRG 291 ==
LOC: ED 16:12 → SUATTDRO 21:39 → 2W 21:39
DX: N40.0 Benign prostatic hyperplasia without lower urinary tract symptoms; Z68.41 Body mass index [BMI] 40.0-44.9, adult; I25.10 Atherosclerotic heart disease of native coronary artery without angina pectoris; N18.30 Chronic kidney disease, stage 3 unspecified; E11.22 Type 2 diabetes mellitus with diabetic chronic kidney disease; J43.9 Emphysema, unspecified; Z91.19 Patient's noncompliance with other medical treatment and regimen; Z79.82 Long term (current) use of aspirin; Z79.51 Long term (current) use of inhaled steroids; R07.89 Other chest pain; Z87.891 Personal history of nicotine dependence; K21.9 Gastro-esophageal reflux disease without esophagitis; Z91.11 Patient's noncompliance with dietary regimen; E78.5 Hyperlipidemia, unspecified; Z79.899 Other long term (current) drug therapy; I50.33 Acute on chronic diastolic (congestive) heart failure; E66.2 Morbid (severe) obesity with alveolar hypoventilation; F32.A Depression, unspecified; Z86.718 Personal history of other venous thrombosis and embolism; F41.9 Anxiety disorder, unspecified; E11.65 Type 2 diabetes mellitus with hyperglycemia; Z91.041 Radiographic dye allergy status; Z20.822 Contact with and (suspected) exposure to COVID-19; Z91.048 Other nonmedicinal substance allergy status; M19.90 Unspecified osteoarthritis, unspecified site; I42.5 Other restrictive cardiomyopathy; Z79.4 Long term (current) use of insulin; Z91.138 Patient's unintentional underdosing of medication regimen for other reason; I13.0 Hypertensive heart and chronic kidney disease with heart failure and stage 1 through stage 4 chronic kidney disease, or unspecified chronic kidney disease; Z86.16 Personal history of COVID-19

== ENCOUNTER 2022-11-14 08:26 | Inpatient (IN) ==
[2022-11-14] MEDS ORDERED: cefTRIAXone SODIUM 2,000 MG/70 ML BAG IV STA (08:39)
[2022-11-14] MEDS ORDERED: SODIUM CHLORIDE 0.9% 1000ML 1,000 ML IV ONE (08:45)
--- NOTE | 2022-11-14 08:45 | Emergency Department Note ---
Impression & Plan Hypoxia, Fever, Abdominal pain, Shortness of breath ED Provider Note NAME: JORDAN VILLANUEVA AGE: 77 SEX: M : 1945 ARRIVES VIA: Ambulance INFORMANT: Patient, EMS reports she ED PROVIDER(S): Jr Patterson DO CHIEF COMPLAINT: SOB and abdominal pain HPI: Patient is a 77-year-old male with a past medical history of GERD, restrictive cardiomyopathy, chronic diastolic heart failure on Lasix, chronically wears 2 L nasal cannula at night, diabetes, CKD who presents the ER for shortness of breath and abdominal pain. Patient notes that the abdominal pain associate with nausea vomiting has been going on for about a week. He admits to cough congestion and shortness of breath which is been going on for the past week as well. Admits to some intermittent dysuria, urgency, and frequency. No headache or change in vision. No chest pain. Does not believe that his had any fevers. He notes he is very thirsty. No other exacerbating or remitting factors. Was brought in by EMS. PAST MEDICAL HISTORY:See Below PAST SURGICAL HISTORY:See Below FAMILY HISTORY:See Below SOCIAL HISTORY:See Below HOME MEDICATIONS:See Below ALLERGIES:See Below VITALS:See Below PHYSICAL EXAMINATION: GENERAL: Sitting up in bed, alert, obese, chronically ill-appearing on nasal cannula EYE EXAM: normal conjunctiva. PERRL and EOM's grossly intact. OROPHARYNX: mucous membranes are moist NECK: supple, no nuchal rigidity, no adenopathy, non-tender LUNGS: Faint wheezing bilaterally. Normal chest wall mechanics HEART: no murmurs, S1 normal and S2 normal ABDOMEN: abdomen soft, non-tender, normo-active bowel sounds, no masses, no rebound or guarding. UPPER EXTREMITIES: upper extremities are grossly normal. LOWER EXTREMITIES: No pitting edema. NEURO EXAM: Normal sensorium, cranial nerves II-XII grossly intact, normal speech, no gross weakness of arms, no gross weakness of legs. MEDICAL DECISION MAKING: Patient is a 77-year-old male who presents the ER for nausea vomiting which is been present for the past week associate with shortness of breath. IV was established blood work was obtained. He was brought in by EMS. I discussed with EMS and reviewed the report. External records were reviewed. Labs show leukocytosis of 15,000. No significant anemia. Patient was febrile and tachycardic. He was given a bolus of fluids but was not given 30 cc/kg due to his history of CHF, CKD and restrictive cardiomyopathy. Heart rate trended down. He was given Tylenol. He was placed on 2 L nasal cannula which he only wears at night due to hypoxia which was new. BMP with creatinine 1.4. LFTs bilirubin was unremarkable. Procalcitonin was normal. UA was clean. Viral panel was negative. Chest x-ray was unremarkable. CT abdomen pelvis showed no acute pathology although limited secondary to body habitus. He was given IV antibiotics 2 g of Rocephin updated at bedside discussed with the hospitalist as well as care managers admitted for further work-up. Triage Nursing notes reviewed. Limited review of prior medical records performed Vital Signs: reviewed and remarkable for hypoxic and febrile Differential diagnosis: Differential diagnosis includes etiologies such as sepsis, UTI, pneumonia, metabolic, electrolyte abnormalities, cardiac sources, intracerebral event, toxicologic, neurological, as well as others were entertained. ER treatment provided: See below Diagnostics interpreted by me include EKG and cardiac monitoring as listed below: -Cardiac Monitoring: An order was placed for continuous cardiac monitoring. The monitor shows a rate of 110 with sinus rhythm. -ECG: Plus tachycardia rate of 116 Normal axis Rotavirus block QTC 433 No significant change from previous performed in 2019 -Laboratory studies:Interpreted by me as stated above in MDM and shown below. Imaging studies: Xrays: As interpreted by me: Portable AP upright 1 view of the chest shows no focal infiltrate per my note CTs show: CT abdomen pelvis shows no acute pathology Consultation(s): Discussed with Damian Martins in regards to presentation work- up and treatment and further management as an inpatient Procedures:none Critical Care: None Past Med/Surg History Medical History Acute heart failure with preserved ejection fraction (HFpEF) Anxiety and depression BPH (benign prostatic hyperplasia) Chronic diastolic heart failure, NYHA class 3 Degenerative disc disease Diabetes mellitus type 2, insulin dependent GERD (gastroesophageal reflux disease) H/O deep venous thrombosis 5+ yrs ago s/p fall Hyperlipidemia Hypertension Morbid obesity Nonobstructive atherosclerosis of coronary artery Osteoarthritis Pressure ulcer of right ankle, stage 2 Pulmonary emphysema Restrictive cardiomyopathy Restrictive lung disease secondary to obesity Septic arthritis (01/24/14) Sleep apnea BIPAP Surgical History Difficult intubation "Elective" glidescope noted on 08/2018 [facility] record History of arthroscopy RIGHT SHOULDER History of cardiac cath MULTIPLE (NO STENTS PLACED) MOST RECENT= 2018 History of cataract surgery RT/LEFT History of colonoscopy History of esophagogastroduodenoscopy (EGD) History of herniorrhaphy multiple History of open reduction and internal fixation (ORIF) procedure LEFT WRIST (HARDWARE REMOVED) 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) History of tooth extraction History of total knee replacement RIGHT/LEFT Hx of transurethral resection of prostate S/P cholecystectomy Status post total hip replacement, left Family History Mother Stroke Alzheimer disease Father MVA (motor vehicle accident) Sister Breast cancer Denies family history of Ovarian cancer Prostate cancer Myocardial infarction Colorectal cancer Social History Smoking Status: Former smoker Tobacco Type: Cigarettes Age Started Using Tobacco: 18; Cigarettes Per Day: HX OF 1-2 PPD X 10 YEARS, QUIT IN 1974; Smoking End Date: 1974; Second Hand Exposure: No; Hx Alcohol Use: No Hx Substance Use: No Preferred Language: Wallisian Communication Ability: Effective Visual Impairment: No Limitations Hearing Ability: Normal 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 Required: No Beliefs That Will Affect Care: None marital status: Current Living Situation: Spouse current occupational status: retired How many Children do You have: 2 Feels Safe at Home: Yes Safety Concerns: Feels Safe At This Time Childhood Exposure to Second-Hand Smoke: No Dental Care, Regularly: Yes Physical Activity Frequency: Daily Seatbelt Use: always Sunscreen Use: No Assistive Devices: Cane, Glasses and Oxygen - Continuous Allergies Allergies Allergy/AdvReac Type Severity Reaction Status Date / Time adhesive tape Allergy Mild Redness of Verified 11/14/22 11:29 Skin Iodinated Contrast Media AdvReac Intermediate Gastrointestinal Verified 11/14/22 11:29 Upset Iodine Solution SOLN AdvReac Unknown Unknown Uncoded 11/14/22 11:29 Home Meds Home Medications Medication Instructions Recorded Confirmed aspirin 81 mg tablet,delayed 162 mg PO QAM 01/16/21 11/14/22 release ([place] Low Dose Aspirin) spironolactone 50 mg tablet 50 mg PO DAILY 08/26/21 11/14/22 albuterol sulfate 90 mcg/actuation 2 puff inhalation Q4H PRN 12/26/21 11/14/22 aerosol inhaler Shortness Of Breath Or Wheezing lorazepam 0.5 mg tablet 0.5 mg sublingual Q6H PRN Anxiety 12/26/21 11/14/22 torsemide 100 mg tablet 100 mg PO QAM 02/11/22 11/14/22 metoprolol succinate 50 mg 50 mg PO QAM 03/24/22 11/14/22 tablet,extended release 24 hr Previous Rx's Medication Instructions Recorded empagliflozin 10 mg tablet 10 mg PO QAM #30 tabs 01/22/22 (Jardiance) cholecalciferol (vitamin D3) 50 50 mcg PO BID #180 caps 05/09/22 mcg (2,000 unit) capsule cyanocobalamin (vitamin B-12) 2,500 mcg PO DAILY 90 days #90 tabs 05/25/22 2,500 mcg tablet Oxygen Home #1 ea 05/31/22 flash glucose scanning reader #1 ea 06/02/22 (FreeStyle Shlomo 2 [place]) fluoxetine 20 mg capsule See Rx Instructions .Route 06/07/22 .COMPLEX #270 caps pen needle, diabetic 31 gauge x #200 ea 06/13/22 5/" (BD Ultra-Fine Short Pen Needle) atorvastatin 40 mg tablet 40 mg PO QAM #90 tabs 07/04/22 semaglutide 0.25 mg or 0.5 mg (2 0.5 mg (0.4 mL) subcut WK #1.5 mL 09/12/22 mg/1.5 mL) subcutaneous pen injector (Ozempic) omeprazole 20 mg capsule,delayed 20 mg PO QAM #90 caps 09/16/22 release potassium chloride 20 mEq 20 meq PO QAM #90 tabs 09/16/22 tablet,extended release insulin glargine 100 unit/mL (3 40 unit (0.4 mL) subcut BID #45 mL 09/20/22 mL) subcutaneous pen (Basaglar KwikPen U-100 Insulin) flash glucose sensor (FreeStyle #2 KITS 11/01/22 Shlomo 2 Sensor kit) Results & Data (ED) Vital Signs Vital Signs - 24 hr 11/14/22 08:50 11/14/22 09:18 11/14/22 11:14 Temperature 39.1 C H 38 C H Temperature Source Oral Oral Pulse Rate 106 H 106 H Pulse Rhythm Regular Respiratory Rate 26 H 26 H Respiratory Effort / Characteristics Non-Labored Respiratory Depth Shallow Blood Pressure 113/74 Blood Pressure Mean 87 Blood Pressure Position Sitting Pulse Oximetry 96 96 Oxygen Delivery Method Nasal Cannula Nasal Cannula Oxygen Flow Rate 2 2 Sepsis Recent Fever Within 48 Hours Yes Sepsis New/Unexplained Change in Mental Status No Sepsis Action Taken by Nursing Physician Notified 11/14/22 08:39 11/14/22 09:00 11/14/22 09:57 Temperature Temperature Source Pulse Rate 102 H 102 H 99 H Pulse Rhythm Respiratory Rate 24 25 H 21 Respiratory Effort / Characteristics Respiratory Depth Blood Pressure Blood Pressure Mean Blood Pressure Position Pulse Oximetry 95 Oxygen Delivery Method Nasal Cannula Oxygen Flow Rate 2 Sepsis Recent Fever Within 48 Hours Sepsis New/Unexplained Change in Mental Status Sepsis Action Taken by Nursing 11/14/22 10:00 11/14/22 10:30 11/14/22 11:00 Temperature Temperature Source Pulse Rate 101 H 97 H 96 H Pulse Rhythm Respiratory Rate 25 H 28 H 39 H Respiratory Effort / Characteristics Respiratory Depth Blood Pressure Blood Pressure Mean Blood Pressure Position Pulse Oximetry 95 Oxygen Delivery Method Nasal Cannula Oxygen Flow Rate 2 Sepsis Recent Fever Within 48 Hours Sepsis New/Unexplained Change in Mental Status Sepsis Action Taken by Nursing 11/14/22 11:30 Temperature Temperature Source Pulse Rate 96 H Pulse Rhythm Respiratory Rate 28 H Respiratory Effort / Characteristics Respiratory Depth Blood Pressure Blood Pressure Mean Blood Pressure Position Pulse Oximetry Oxygen Delivery Method Oxygen Flow Rate Sepsis Recent Fever Within 48 Hours Sepsis New/Unexplained Change in Mental Status Sepsis Action Taken by Nursing Laboratory Data 11/14/22 09:04 11/14/22 09:04 Lab Results 11/14/22 11/14/22 11/14/22 Range/Units 09:04 09:04 09:04 WBC 15.49 H (4.8-10.8) K/ul RBC 4.87 (4.70-6.10) M/uL Hgb 12.3 L (14.0-18.0) g/dl Hct 40.8 L (42.0-52.0) % MCV 83.8 (80.0-100.0) fL MCH 25.3 (25.0-34.0) pg MCHC 30.1 L (32.0-36.0) g/dL RDW Std Deviation 48.4 H (36.4-46.3) fL RDW Coeff of Kartik 15.9 H (11.5-14.5) % Plt Count 285 (130-400) K/uL MPV 10.4 (9.4-12.4) fL Immature Gran % (Auto) 0.3 % Neut % (Auto) 84.5 % Lymph % (Auto) 5.6 % Desha % (Auto) 8.1 % Eos % (Auto) 1.1 % Baso % (Auto) 0.4 % Neut # (Auto) 13.10 H (1.40-6.50) K/uL Lymph # (Auto) 0.86 L (1.2-3.4) K/uL Desha # (Auto) 1.26 H (0.11-0.59) K/uL Eos # (Auto) 0.17 (0-0.50) K/uL Baso # (Auto) 0.06 (0-0.2) K/uL Immature Gran # (Auto) 0.04 (0.01-0.20) K/uL Sodium 138 (136-145) mmol/L Potassium 4.5 (3.5-5.1) mmol/L Chloride 102 (98-107) mmol/L Carbon Dioxide 31 (21-32) mmol/L Anion Gap 5 (3-11) BUN 21 (6-23) mg/dl Creatinine 1.44 H (0.6-1.4) mg/dl Est Cr Clr Drug Dosing 64.8 ml/min Est GFR ( Amer) 54.7 ml/min Est GFR (Non-Af Amer) 47.2 ml/min BUN/Creatinine Ratio 14.6 (10-20) Glucose 146 H (70-99(Fasting)) mg/dl Lactate 1.6 (0.4-2.0) mmol/L Uric Acid (2.6-7.2) mg/dl Calcium 9.6 (8.5-10.1) mg/dl Magnesium 2.1 (1.7-2.4) mg/dl Total Bilirubin 0.5 (0.2-1.0) mg/dl Direct Bilirubin 0.1 (0-0.2) mg/dl AST 19 (13-39) U/L ALT 15 (7-52) U/L Alkaline Phosphatase 81 (34-104) U/L Troponin I High Sens 11.1 (0-20) pg/ml Total Protein 7.1 (6.0-8.3) gm/dl Albumin 3.7 (3.4-5.0) gm/dl Procalcitonin (0-0.5) ng/ml 11/14/22 11/14/22 Range/Units 09:04 09:04 WBC (4.8-10.8) K/ul RBC (4.70-6.10) M/uL Hgb (14.0-18.0) g/dl Hct (42.0-52.0) % MCV (80.0-100.0) fL MCH (25.0-34.0) pg MCHC (32.0-36.0) g/dL RDW Std Deviation (36.4-46.3) fL RDW Coeff of Kartik (11.5-14.5) % Plt Count (130-400) K/uL MPV (9.4-12.4) fL Immature Gran % (Auto) % Neut % (Auto) % Lymph % (Auto) % Desha % (Auto) % Eos % (Auto) % Baso % (Auto) % Neut # (Auto) (1.40-6.50) K/uL Lymph # (Auto) (1.2-3.4) K/uL Desha # (Auto) (0.11-0.59) K/uL Eos # (Auto) (0-0.50) K/uL Baso # (Auto) (0-0.2) K/uL Immature Gran # (Auto) (0.01-0.20) K/uL Sodium (136-145) mmol/L Potassium (3.5-5.1) mmol/L Chloride (98-107) mmol/L Carbon Dioxide (21-32) mmol/L Anion Gap (3-11) BUN (6-23) mg/dl Creatinine (0.6-1.4) mg/dl Est Cr Clr Drug Dosing ml/min Est GFR ( Amer) ml/min Est GFR (Non-Af Amer) ml/min BUN/Creatinine Ratio (10-20) Glucose (70-99(Fasting)) mg/dl Lactate (0.4-2.0) mmol/L Uric Acid 7.1 (2.6-7.2) mg/dl Calcium (8.5-10.1) mg/dl Magnesium (1.7-2.4) mg/dl Total Bilirubin (0.2-1.0) mg/dl Direct Bilirubin (0-0.2) mg/dl AST (13-39) U/L ALT (7-52) U/L Alkaline Phosphatase (34-104) U/L Troponin I High Sens (0-20) pg/ml Total Protein (6.0-8.3) gm/dl Albumin (3.4-5.0) gm/dl Procalcitonin 0.10 (0-0.5) ng/ml Administered Medications Discontinued Medications Acetaminophen (Acetaminophen 325 Mg Tab) 650 mg PO NOW STA Stop: 11/14/22 09:16 Last Admin: 11/14/22 09:52 Dose: 650 mg Documented By: PATITO Ceftriaxone Sodium (Rocephin) 2,000 mg in 70 mls @ 140 mls/hr IV NOW STA Stop: 11/14/22 09:08 Last Infusion: 11/14/22 10:31 Dose: 0 mls/hr Documented By: Admin: 11/14/22 09:51 Dose: 140 mls/hr Documented By: PATITO Sodium Chloride (Nss 1000ml) 1,000 mls @ 999 mls/hr IV .Q1H1M ONE Stop: 11/14/22 09:45 Last Admin: 11/14/22 09:37 Dose: Not Given Documented By: PATITO Sodium Chloride (Nss) 500 mls @ 999 mls/hr IV .Q31M ONE Stop: 11/14/22 10:07 Last Infusion: 11/14/22 09:56 Dose: 0 mls/hr Documented By: Admin: 11/14/22 09:00 Dose: 999 mls/hr Documented By: FLORENCE Morphine Sulfate (Morphine Sulfate 2 Mg/Ml Carp) 2 mg IV NOW STA Stop: 11/14/22 11:48 Last Admin: 11/14/22 13:41 Dose: 2 mg Documented By: NELLIE Ondansetron HCl (Ondansetron Inj 2 Mg/Ml 2 Ml Vial) 4 mg IV NOW STA Stop: 11/14/22 09:16 Last Admin: 11/14/22 09:52 Dose: 4 mg Documented By: NRB Imaging Data Radiologist's Impression: Chest X-Ray 11/14/22 08:39 XR chest 1V portable HISTORY: 77 years-old Male Sepsis acute sepsis COMPARISON: 05/31/2022 TECHNIQUE: AP view of the chest FINDINGS: Cardiac silhouette is mildly enlarged. Atherosclerosis of the aorta. Blunting of the costophrenic angles. No pneumothorax or overt pulmonary edema. Mild subsegmental linear bibasilar densities. Degenerative changes of the shoulders and spine. IMPRESSION: 1. Cardiomegaly without acute process. 2. Mild bibasilar atelectasis. ACT 112: Negative or not required by law. The above report was generated using voice recognition software. It may contain grammatical, syntax or spelling errors. Electronically signed by: Gurvinder Ritchie M.D. 11/14/2022 8:54 AM Abdomen/Pelvis CT 11/14/22 08:[address] WITHOUT CONTRAST CT DOSE: 1129.23 mGycm HISTORY: Acute generalized abdominal pain abd pain TECHNIQUE: Multiaxial CT images of the abdomen and pelvis were performed without contrast. A dose lowering technique was utilized adhering to the principles of ALARA. COMPARISON STUDY: 01/16/2021 FINDINGS: Limited study secondary to respiratory motion, upper extremity positioning and lack of contrast. Coronary artery calcifications. The heart is normal in size. Mild bibasilar atelectasis. No pneumatosis or pneumoperitoneum. The unenhanced spleen, pancreas and adrenal glands are unremarkable. Cho lecystectomy. 1.5 cm linear calcified structure is again noted abutting the inferior right hepatic lobe on image 213. Mild nonspecific bilateral perinephric stranding. A few bilateral renal cysts are redemonstrated. No definite urolith or hydronephrosis. Pelvic structures are suboptimally visualized secondary to artifact from the hip arthroplasties. Aorta and IVC are unremarkable. 1.2 cm nodular focus abutting the left seminal vesicles on image 399.. No bowel obstruction or bowel wall thickening. Mild colonic fecal retention. Normal appendix. Ascites or mesenteric inflammation. Prior ventral abdominal wall herniorrhaphy. Degenerative changes of the spine and pelvis. Bilateral hip arthroplasties. IMPRESSION: 1. Limited exam as above. 2. No bowel obstruction or bowel wall thickening. 3. Additional findings as above. ACT 112: Negative or not required by law. The above report was generated using voice recognition software. It may contain grammatical, syntax or spelling errors. Electronically signed by: Gurvinder Ritchie M.D. 11/14/2022 10:15 AM Discharge Plan Visit Data Chief Complaint: Illness Stated Complaint: ILLNESS, WEAKNESS ED Provider: Jr Patterson Discharge Problem: Hypoxia, Fever, Abdominal pain, Shortness of breath Discharge Instructions Interventions: ED Discharge Assessment Last Done: 11/14/22 14:36
--- NOTE | 2022-11-14 08:55 | XRay Report ---
XR chest 1V portable HISTORY: 77 years-old Male Sepsis acute sepsis COMPARISON: 05/31/2022 TECHNIQUE: AP view of the chest FINDINGS: Cardiac silhouette is mildly enlarged. Atherosclerosis of the aorta. Blunting of the costophrenic ang les. No pneumothorax or overt pulmonary edema. Mild subsegmental linear bibasilar densities. Degenera tive changes of the shoulders and spine. IMPRESSION: 1. Cardiomegaly without acute process. 2. Mild bibasilar atelectasis. ACT 112: Negative or not required by law. The above report was generated using voice recognition software. It may contain grammatical, syntax o r spelling errors. Electronically signed by: Gurvinder Ritchie M.D. 11/14/2022 8:54 AM
[2022-11-14] MEDS ORDERED: ACETAMINOPHEN 325 MG TAB PO STA (09:15)
[2022-11-14] MEDS ORDERED: ONDANSETRON INJ 2 MG/ML 2 ML VIAL IV STA (09:15)
[2022-11-14 09:20] LABS: Basophils # (auto) 0.06 K/uL (0-0.2); Basophils % (auto) 0.4 %; Eosinophils # (auto) 0.17 K/uL (0-0.50); Eosinophils % (auto) 1.1 %; Hematocrit (blood only) 40.8 % (42.0-52.0); Hemoglobin 12.3 g/dl (14.0-18.0); Immature Granulocytes # (auto) 0.04 K/uL (0.01-0.20); Immature Granulocytes % (auto) 0.3 %; Lymphocytes # (auto) 0.86 K/uL (1.2-3.4); Lymphocytes % (auto) 5.6 %; Mean Corpuscular Hemoglobin 25.3 pg (25.0-34.0); Mean Corpuscular Hgb Conc 30.1 g/dL (32.0-36.0); Mean Corpuscular Volume 83.8 fL (80.0-100.0); Mean Platelet Volume 10.4 fL (9.4-12.4); Monocytes # (auto) 1.26 K/uL (0.11-0.59); Monocytes % (auto) 8.1 %; Neutrophils % (auto) 84.5 %; Platelet Count 285 K/uL (130-400); RDW Coefficient of Variation 15.9 % (11.5-14.5); RDW Standard Deviation 48.4 fL (36.4-46.3); Red Blood Count 4.87 M/uL (4.70-6.10); White Blood Count 15.49 K/ul (4.8-10.8)
[2022-11-14 09:32] LABS: Appearance Urine Clear (Clear); Bacteria Urine Automated Negative (Negative); Bilirubin Urine Negative (Negative); Blood Urine Negative (Negative); Cast Urine Automated 0 /lpf (0-5); Color Urine Yellow; Epithelial Cell Urine Auto 0-5 /lpf (0-5); Glucose Urine UA 3+ (Negative); Ketones Urine Negative (Negative); Leukocyte Esterase Urine Negative (Negative); Nitrite Urine Negative (Negative); RBC Urine Automated 0-4 /hpf (0-4); Specific Gravity Urine 1.027 (1.000-1.030); Urobilinogen Urine Negative (Negative)
[2022-11-14 09:36] LABS: Protein Urine Trace (Negative)
[2022-11-14] MEDS ORDERED: SODIUM CHLORIDE 0.9% 500 ML IV ONE (09:37)
[2022-11-14 09:42] LABS: Albumin Level 3.7 gm/dl (3.4-5.0); Bilirubin Direct 0.1 mg/dl (0-0.2); Bilirubin,Total 0.5 mg/dl (0.2-1.0); Calcium 9.6 mg/dl (8.5-10.1); Magnesium 2.1 mg/dl (1.7-2.4); Potassium 4.5 mmol/L (3.5-5.1)
[2022-11-14 09:48] LABS: BUN Creatinine Ratio 14.6 (10-20); Creatinine Clr Calc Pharmacy 64.8 ml/min; Est GFR (African American) 54.7 ml/min; Est GFR (Non-African American) 47.2 ml/min; Total Protein 7.1 gm/dl (6.0-8.3)
--- NOTE | 2022-11-14 10:09 | Electrocardiogram Report ---
Test Reason : Blood Pressure : / mmHG Vent. Rate : 116 BPM Atrial Rate : 116 BPM P-R Int : 142 ms QRS Dur : 102 ms QT Int : 312 ms P-R-T Axes : 026 -07 022 degrees QTc Int : 433 ms Sinus tachycardia Incomplete right bundle branch block Borderline ECG When compared with ECG of 11-FEB-2022 15:02, QRS duration has decreased Confirmed by Vasquez Klein ([id number]) on 11/14/2022 10:08:56 AM Referred By: REFERRED SELF Confirmed By:Vasquez Klein
[2022-11-14 10:14] LABS: Troponin I High Sensitivity 11.1 pg/ml (0-20)
--- NOTE | 2022-11-14 10:17 | CT Scan Report ---
ABDOMEN AND PELVIS CT WITHOUT CONTRAST CT DOSE: 1129.23 mGycm HISTORY: Acute generalized abdominal pain abd pain TECHNIQUE: Multiaxial CT images of the abdomen and pelvis were performed without contrast. A dose lo wering technique was utilized adhering to the principles of ALARA. COMPARISON STUDY: 01/16/2021 FINDINGS: Limited study secondary to respiratory motion, upper extremity positioning and lack of cont rast. Coronary artery calcifications. The heart is normal in size. Mild bibasilar atelectasis. No pne umatosis or pneumoperitoneum. The unenhanced spleen, pancreas and adrenal glands are unremarkable. Cholecystectomy. 1.5 cm linear c alcified structure is again noted abutting the inferior right hepatic lobe on image 213. Mild nonspec ific bilateral perinephric stranding. A few bilateral renal cysts are redemonstrated. No definite uro lith or hydronephrosis. Pelvic structures are suboptimally visualized secondary to artifact from the hip arthroplasties. Aorta and IVC are unremarkable. 1.2 cm nodular focus abutting the left seminal ve sicles on image 399.. No bowel obstruction or bowel wall thickening. Mild colonic fecal retention. Normal appendix. Ascites or mesenteric inflammation. Prior ventral abdominal wall herniorrhaphy. Degenerative changes of the spine and pelvis. Bilateral hip arthroplasties. IMPRESSION: 1. Limited exam as above. 2. No bowel obstruction or bowel wall thickening. 3. Additional findings as above. ACT 112: Negative or not required by law. The above report was generated using voice recognition software. It may contain grammatical, syntax o r spelling errors. Electronically signed by: Gurvinder Ritchie M.D. 11/14/2022 10:15 AM
[2022-11-14 10:23] LABS: Influenza A virus by PCR Negative (Neg); Influenza B virus by PCR Negative (Neg); RSV by PCR Negative (Neg); SARS CoV2 RNA(COVID-19) Ceph NEGATIVE (Negative)
[2022-11-14] MEDS ORDERED: PHARMACY GLYCEMIC MGMT CONSULT PRN (11:36)
[2022-11-14] MEDS ORDERED: DEXTROSE 50% 50 ML SYRINGE IV PRN (11:36)
[2022-11-14] MEDS ORDERED: GLUCOSE 10 TAB/TUBE PO PRN (11:36)
[2022-11-14] MEDS ORDERED: CARBOHYDRATES FOR HYPOGLYCEMIA PO PRN (11:36)
[2022-11-14] MEDS ORDERED: ONDANSETRON INJ 2 MG/ML 2 ML VIAL IV PRN (11:36)
[2022-11-14] MEDS ORDERED: GLUCOSE 40% GEL 15 GM TUBE PO PRN (11:36)
[2022-11-14] MEDS ORDERED: GLUCAGON FOR INJ 1 MG VIAL SQ PRN (11:36)
[2022-11-14] MEDS ORDERED: MoRPHine SULFATE 2 MG/ML CARP IV STA (11:47)
[2022-11-14] MEDS ORDERED: ALBUTEROL HFA 8 GM INHALER INH PRN (11:49)
[2022-11-14] MEDS ORDERED: LORazepam 0.5 MG TAB SL PRN (11:49)
--- NOTE | 2022-11-14 12:00 | History & Physical Report ---
Date of Service November 14, 2022 Assessment & Plan (1) Acute on chronic respiratory failure with hypoxemia: Plan: 77-year-old male presenting with nausea and vomiting found to be hypoxemic which is acute on his chronic hypoxemic respiratory failure requiring inpatient evaluation for marked leukocytosis and concerns for sepsis syndrome in the febrile patient. * Previous visit notes suggest underlying restrictive lung disease in the setting of obesity hypoventilation syndrome. Patient does utilize 2 L nasal cannula to sleep at night. It sounds as though he has been reluctant to be evaluated for or comply with BiPAP in the setting of likely RAMAN diagnosis. * Will place order for BiPAP to be utilized at night. * Patient currently on 2 L and saturating well. Chest x-ray without acute findings, however we will monitor as the patient has had recent episodes of vo miting and he certainly could be experiencing a degree of aspiration pneumonitis. Patient received Rocephin initially. I do not feel that he needs pseudomonal coverage initially. He has shown improvement and does not appear to be struggling from a respiratory standpoint at this point. * Patient would likely benefit from pulmonary evaluation. This can certainly be done in the outpatient setting pending his clinical progress. (2) Sepsis syndrome: Plan: * In relationship to leukocytosis, tachycardia, and tachypnea. * Of questionable source at this time. Certainly, the patient did have some underlying upper respiratory complaints for the past week or so, however his initial influenza, RSV, and COVID screening were all negative. * Will expand on respiratory panel and order bio fire study to evaluate for possible respiratory illness contribution to current symptoms. * Lactic acid and procalcitonin unremarkable. * Patient complaining of RIGHT knee pain which she reports is new over the last few days. The patient does have a history of gout, but has never had gouty arthropathy to the RIGHT knee in particular. * Exam is not impressive, but will add uric acid study as well as x-ray to evaluate for possible effusion. * While the patient's leukocytosis certainly could be stress-induced in the setting of recent vomiting, we cannot ignore the ongoing fevers, particularly with blood cultures pending and extended respiratory panel pending. * Will continue with Rocephin for now. (3) Nausea and vomiting: Plan: * Uncertain of cause at this time. * Patient without sick contacts. No recent consumption of raw/undercooked foods. No recent long distance travel. No drinking from poor water sources. * Patient did complain of some abdominal discomfort. He has some mild subjective tenderness to palpation on exam. CT without acute findings otherwise. * Patient requesting advancement in his diet at this point. * Will provide him clears. (4) Acute kidney injury superimposed on chronic kidney disease: Plan: * Likely in the setting of volume depletion with nausea and vomiting. * Received 1.5 L intravenously. * Will hold on further IV fluid supplementation at this time given the patient's history of CHF and his and clinical improvement at this time (5) Testicular nodule: Plan: * Incidental finding on CT. * Physical exam without significant findings. * Appreciate urology input. (6) Hypertension: Plan: * Appears to be fairly well managed at home. * Continue home medications as tolerated. (7) Hyperlipidemia: Plan: * Continue home medications as tolerated. (8) Obstructive sleep apnea: Plan: * Encourage utilization of BiPAP. (9) Type 2 diabetes mellitus: Plan: * Hold on home medications. * Will start on sliding scale. (10) Restrictive lung disease secondary to obesity: Plan: * Previous diagnosis in relationship to the patient's morbid obesity. * Encourage BiPAP use. * Continue with supplemental oxygen as needed. (11) Chronic diastolic heart failure: Plan: * Without exam findings or imaging studies suspicious of pulmonary contribution at this time. * Will continue with his torsemide tomorrow. History of Present Illness Chief Complaint: N/V, Generalized Weakness Primary Care Provider: Melissa Frazier MD Patient is a 77-year-old male with a significant past medical history of hypertension, hyperlipidemia, heart failure with preserved ejection fraction, peripheral neuropathy, chronic hypoxemia requiring 2 L nasal cannula at night, restrictive lung disease secondary to morbid obesity, restrictive cardiomyopathy, CKD 3, and diabetes. Patient has had mild nasal congestion and cough for the past week or so. Despite that, he has had no complaints of shortness of breath or worsening hypoxia. He continues to wear 2 L nasal cannula at night as instructed. Patient has not had a sleep study recently and reports that he does not utilize his BiPAP as he is supposed to. This morning at approximate 6 AM, the patient developed intense nausea with associated vomiting. He reports vomiting several times and had post emesis shakiness. He has had some mild abdominal discomfort since vomiting, but reports that the symptoms of pain started after the rounds of vomiting. He reports that his nausea feels better after administration of Zofran. He currently complains of pain to the RIGHT knee which she reports has been progressively worsening over the last few days. He reports ongoing swelling to the bilateral lower extremities which she is adamant is not any worse than baseline. He denies any falls or recent trauma to the affected RIGHT lower extremity. He reports that, other than his current illness, he has felt at his baseline and without significant complaints. Patient was noted to have a moderate leukocytosis in excess of 15,000. Lactic acid and procalcitonin within normal limits. Patient was treated with 1.5 L of normal saline for some associated tachycardia. He has a slight CAIT superimposed on CKD 3. Patient was febrile with a T-max of 39.1 C. Fever responded to oral Tylenol. Heart rate has improved. Patient is requiring his baseline 2 L nasal cannula and saturating in the mid 90s. Upon evaluation in room C6, the patient is awake, alert, and oriented. He reports feeling thirsty and that his nausea has since subsided. Other than some mild abdominal discomfort, the patient denies any other symptoms. Regarding imaging findings to the LEFT scrotal area, he denies any redness, swelling, or erythema. He reports no tenderness to palpation. No palpable lumps that he is aware of. Additionally, the patient does report a history of gout, however he has not experienced a gouty flareup in his knees in the past. He has a history of bilateral TKA. Allergies Allergy/AdvReac Type Severity Reaction Status Date / Time adhesive tape Allergy Mild Redness of Verified 11/14/22 11:29 Skin Iodinated Contrast Media AdvReac Intermediate Gastrointestinal Verified 11/14/22 11:29 Upset Iodine Solution SOLN AdvReac Unknown Unknown Uncoded 11/14/22 11:29 Home Medications Medication Instructions Recorded Confirmed Type aspirin 81 mg tablet,delayed 162 mg PO QAM 01/16/21 11/14/22 History release (K[place] Low Dose Aspirin) spironolactone 50 mg tablet 50 mg PO DAILY 08/26/21 11/14/22 History albuterol sulfate 90 mcg/actuation 2 puff inhalation Q4H PRN 12/26/21 11/14/22 History aerosol inhaler Shortness Of Breath Or Wheezing lorazepam 0.5 mg tablet 0.5 mg sublingual Q6H PRN Anxiety 12/26/21 11/14/22 History empagliflozin 10 mg tablet 10 mg PO QAM #30 tabs 01/22/22 11/14/22 Rx (Jardiance) torsemide 100 mg tablet 100 mg PO QAM 02/11/22 11/14/22 History metoprolol succinate 50 mg 50 mg PO QAM 03/24/22 11/14/22 History tablet,extended release 24 hr cholecalciferol (vitamin D3) 50 50 mcg PO BID #180 caps 05/09/22 11/14/22 Rx mcg (2,000 unit) capsule cyanocobalamin (vitamin B-12) 2,500 mcg PO DAILY 90 days #90 tabs 05/25/22 11/14/22 Rx 2,500 mcg tablet Oxygen Home #1 ea 05/31/22 11/14/22 Rx flash glucose scanning reader #1 ea 06/02/22 11/14/22 Rx (FreeStyle Shlomo 2 [place]) fluoxetine 20 mg capsule See Rx Instructions .Route 06/07/22 11/14/22 Rx .COMPLEX #270 caps pen needle, diabetic 31 gauge x #200 ea 06/13/22 11/14/22 Rx 5/16" (BD Ultra-Fine Short Pen Needle) atorvastatin 40 mg tablet 40 mg PO QAM #90 tabs 07/04/22 11/14/22 Rx semaglutide 0.25 mg or 0.5 mg (2 0.5 mg (0.4 mL) subcut WK #1.5 mL 09/12/22 11/14/22 Rx mg/1.5 mL) subcutaneous pen injector (Ozempic) omeprazole 20 mg capsule,delayed 20 mg PO QAM #90 caps 09/16/22 11/14/22 Rx release potassium chloride 20 mEq 20 meq PO QAM #90 tabs 09/16/22 11/14/22 Rx tablet,extended release insulin glargine 100 unit/mL (3 40 unit (0.4 mL) subcut BID #45 mL 09/20/22 11/14/22 Rx mL) subcutaneous pen (Basaglar KwikPen U-100 Insulin) flash glucose sensor (FreeStyle #2 KITS 11/01/22 11/14/22 Rx Shlomo 2 Sensor kit) Past Med/Surg History Medical History Acute heart failure with preserved ejection fraction (HFpEF) Anxiety and depression BPH (benign prostatic hyperplasia) Chronic diastolic heart failure, NYHA class 3 Degenerative disc disease Diabetes mellitus type 2, insulin dependent GERD (gastroesophageal reflux disease) H/O deep venous thrombosis 5+ yrs ago s/p fall Hyperlipidemia Hypertension Morbid obesity Nonobstructive atherosclerosis of coronary artery Osteoarthritis Pressure ulcer of right ankle, stage 2 Pulmonary emphysema Restrictive cardiomyopathy Restrictive lung disease secondary to obesity Septic arthritis (01/24/14) Sleep apnea BIPAP Surgical History Difficult intubation "Elective" glidescope noted on 08/2018 [facility] record History of arthroscopy RIGHT SHOULDER History of cardiac cath MULTIPLE (NO STENTS PLACED) MOST RECENT= 2018 History of cataract surgery RT/LEFT History of colonoscopy History of esophagogastroduodenoscopy (EGD) History of herniorrhaphy multiple History of open reduction and internal fixation (ORIF) procedure LEFT WRIST (HARDWARE REMOVED) 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) History of tooth extraction History of total knee replacement RIGHT/LEFT Hx of transurethral resection of prostate S/P cholecystectomy Status post total hip replacement, left Family History Mother Stroke Alzheimer disease Father MVA (motor vehicle accident) Sister Breast cancer Denies family history of Ovarian cancer Prostate cancer Myocardial infarction Colorectal cancer Social History Smoking Status: Former smoker Tobacco Type: Cigarettes Age Started Using Tobacco: 18; Cigarettes Per Day: HX OF 1-2 PPD X 10 YEARS, QUIT IN 1974; Second Hand Exposure: No; Hx Alcohol Use: No Hx Substance Use: No Preferred Language: Occitan Communication Ability: Effective Visual Impairment: No Limitations Hearing Ability: Normal Quality Reviewer Required: No Beliefs That Will Affect Care: None marital status: Current Living Situation: Spouse current occupational status: retired How many Children do You have: 2 Feels Safe at Home: Yes Childhood Exposure to Second-Hand Smoke: No Dental Care, Regularly: Yes Physical Activity Frequency: Daily Seatbelt Use: always Sunscreen Use: No Assistive Devices: BiPap and Cane Review of Systems Review of Systems: A complete 10 point review of systems was reviewed with the patient with pertinent positives and negatives as per history of present illness. All else were negative. Physical Exam Physical Exam: VITAL SIGNS - Vital signs and nursing notes were reviewed. GENERAL - 77-year-old male appearing his stated age who is in no acute distress. Communicates well with provider and answers questions appropriately. SKIN - Without rashes. HEAD - NC/AT. EYES - PERRL with EOMI bilaterally. Sclera anicteric. EARS - No deformities of external structures noted on gross examination bilaterally. NOSE - Midline and without cyanosis. No epistaxis or purulent drainage noted. MOUTH/OROPHARYNX - Without perioral cyanosis. Buccal mucosa pink and dry. NECK - Neck with FROM. Supple to palpation. No lymphadenopathy noted. No nuchal rigidity. LUNGS - Chest wall symmetric without accessory muscle use, intercostals retractions, or central cyanosis. Distant breath sounds. Normal vesicular breath sounds CTA B/L. No wheezes, rales, or rhonchi appreciated. CARDIAC - RRR with S1/S2. No murmur, rubs, or gallops appreciated. ABDOMEN - Abdominal contour obese without pulsations or visible masses. BS hyperactive all four quadrants. Mild subjective TTP throughout. No rebound tenderness or guarding. EXTREMITIES - No clubbing or peripheral cyanosis. Slight bilateral pretibial edema present. +3/5 radial and dorsalis pedis pulses palpated throughout. TTP to the anterior aspect of the RIGHT Knee. No erythema or warmth to touch. No crepitus through ROM activities. Prior surgical sites midline and w/o erythema, edema, or warmth to touch. No palpable cords bilaterally. +5/5 strength noted in UE/LE bilaterally. NEUROLOGIC - Cranial nerves II through XII grossly intact. Sensory intact to light touch throughout. PSYCH - A&Ox3 and cooperates fully with examiner. Pt is very pleasant and interacts well with examiner. Results & Data Results & Data ([facility]) Vital Signs (Past 12 Hours) Vital Signs Temp Pulse Resp BP Pulse Ox O2 Del Method O2 Flow Rate 11/14/22 11:14 38 C H 11/14/22 09:18 106 H 26 H 96 Nasal Cannula 2 11/14/22 08:50 39.1 C H 106 H 26 H 113/74 96 Nasal Cannula 2 ECG Additional Comments: EKG was obtained and reviewed by myself and demonstrated a Sinus Tachycardia with a rate of 116 beats per minute. Incomplete RBBB again noted. No ST changes or T-wave abnormalities were noted otherwise. QTc 433 ms. Code Status & VTE Plan Code Status FULL CODE per discussion with patient and family. VTE Prophylaxis Plan VTE Prophylaxis will be ordered: Yes Supervising Physician Co-Signing Physician Notes I personally saw and examined the patient. I verified all velazquez points and agree with Shaun Cancino PA-C with the following exceptions and/or additions: 77 year old male presents with a 1 to 2-day history of nausea, fevers, chills. Much worse this morning. Main complaint is generalized myalgias but much worse in his right knee. No known tick exposure. O/E HS, no murmurs, Chest CTAB, Abdo SNT, right knee mild effusion without erythema but significant joint line tenderness A/P SIRS - no definitive source on admission, Given main complaint is his right knee will ask orthopedics to assess for possible aspiration, Empiric ceftriaxone pending blood culture results. Biofire negative. PG Care Time/CCT Total # of Minutes Spent Total Time Spent with Patient: Total time spent is greater than 50% in coordination of care (as documented) at patient's floor/unit and/or counseling patient: Coding Level of Care Code 76644 INT INP/OBS CARE 375MIN Diagnoses Acute on chronic respiratory failure with hypoxemia J96.21 Sepsis syndrome Nausea and vomiting R11.2 Acute kidney injury superimposed on chronic kidney disease N17.9; N18.9 Testicular nodule N50.89 Hypertension I10 Hypertension type: essential hypertension Hyperlipidemia E78.5 Hyperlipidemia type: unspecified Obstructive sleep apnea G47.33 Type 2 diabetes mellitus E11.9 Restrictive lung disease secondary to obesity J98.4; E66.9 Chronic diastolic heart failure I50.32 Time Spent (min) 45 (1) Hyperlipidemia Hyperlipidemia type: unspecified Qualified Code(s): E78.5 - Hyperlipidemia, unspecified (2) Hypertension Hypertension type: essential hypertension Qualified Code(s): I10 - Essential (primary) hypertension
--- NOTE | 2022-11-14 12:22 | XRay Report ---
XR knee RT 3V CLINICAL HISTORY: Anterior pain, Please include sunrise view. COMPARISON: Right knee radiographs February 01, 2016. FINDINGS: Alignment of the total right knee arthroplasty is anatomic. No periprosthetic fracture or lucency is identified. There is a small effusion. IMPRESSION: 1. Intact total right knee arthroplasty. No periprosthetic fracture or lucency. 2. Small right knee joint effusion. ACT 112: Negative or not required by law. Electronically signed by: Sha Fuentes M.D. 11/14/2022 12:21 PM
[2022-11-14 14:27] LABS: Adenovirus PCR Not Detected (NotDetected); Bordetella parapertussis PCR Not Detected (NotDetected); Bordetella pertussis PCR Not Detected (NotDetected); Chlamydia pneumoniae PCR Not Detected (NotDetected); Coronavirus 229E PCR Not Detected (NotDetected); Coronavirus CoV-2 (COVID19)PCR Not Detected (NotDetected); Coronavirus HKU1 PCR Not Detected (NotDetected); Coronavirus NL63 PCR Not Detected (NotDetected); Coronavirus OC43PCR Not Detected (NotDetected); Human Metapneumovirus PCR Not Detected (NotDetected); Influenza A PCR Not Detected (NotDetected); Influenza B PCR Not Detected (NotDetected); Mycoplasma pneumoniae PCR Not Detected (NotDetected); Parainfluenza Virus 1 PCR Not Detected (NotDetected); Parainfluenza Virus 2 PCR Not Detected (NotDetected); Parainfluenza Virus 3 PCR Not Detected (NotDetected); Parainfluenza Virus 4 PCR Not Detected (NotDetected); Respiratory Syncytial VirusPCR Not Detected (NotDetected); Rhinovirus/Enterovirus PCR Not Detected (NotDetected)
--- NOTE | 2022-11-14 14:55 | Pharmacy Report ---
Pharmacy Glycemic Short Note 2 - Date of Service November 14, 2022 - Glycemic Short BSG Results (Last 24 hours): 11/14/22 11/14/22 09:04 14:39 Glucose 146 H POC Glucose 95 OUTPATIENT ANTIDIABETIC REGIMEN: * Jardiance 10 mg PO daily * Ozempic * Lantus 40 units SC BID HbA1c: 10.1% (05/31/22) ASSESSMENT: * TW is a 77 year old male who presents to ED today with complaints of increased shortness of breath and abdominal pain (w/ N&V) * Pertinent PMH includes obesity, CHF, and T2DM * Reported giving 40 units of Lantus this morning prior to admission * BSG of 146 mg/dL on presentation and 95 mg/dL this afternoon at time of consult * Clear liquid diet ordered at this time * Initial insulin orders per sliding scale calculator w/ consideration for adjusted body weight/reported home dose of insulin PLAN FOR INPATIENT GLYCEMIC CONTROL: * Hold outpatient oral diabetes medications * Basal insulin * Lantus 40 units SC x 1 this AM prior to admission * Lantus 0-20 units SQ x 1 this evening to provide up to ~80% of home dose * Bolus insulin * NovoLog per scale ACHS or Q6hrs while NPO * Goal Range: Low 110 mg/dL - High 140 mg/dL * Correction Factor: 25 mg/dL/unit * Nutritional / Prandial insulin per carb ratio of 1 unit per 8 grams CHO consumed
[2022-11-14] MEDS: INSULIN ASPART PER UNIT SC SCH ×3 (15:01→20:22)
[2022-11-14] MEDS: FLUoxetine HCL 20 MG CAP PO SCH ×2 (15:25→20:08)
[2022-11-14] MEDS: ACETAMINOPHEN 325 MG TAB PO PRN (17:28)
[2022-11-14] MEDS: CHOLECALCIFEROL 1,000 UNITS 25 MCG TAB PO SCH (20:08)
[2022-11-14] MEDS: PANTOprazole 40 MG TAB PO SCH (20:08)
[2022-11-14] MEDS: oxyCODONE HCL IR 5 MG TAB (IMMEDIATE RELEASE) PO PRN (20:10)
[2022-11-14] MEDS ORDERED: LANTUS PER UNIT CHARGE SQ SCH (21:00)
[2022-11-14] MEDS ORDERED: PANTOprazole 40 MG TAB PO SCH (21:00)
--- NOTE | 2022-11-14 21:23 | Ultrasound Report ---
ULTRASOUND RIGHT LOWER EXTREMITY VENOUS CLINICAL HISTORY: Right leg pain and swelling. COMPARISON STUDY: Bilateral lower extremity venous ultrasound dated 01/20/2022 TECHNIQUE: Real-time, grayscale, and color Doppler sonography of the deep veins of the right lower ex tremity was performed from the inguinal crease to the calf. Compression and augmentation were utilize d. FINDINGS: There is no sonographic evidence of deep venous thrombosis identified in the right lower ex tremity. The common femoral, superficial femoral, and popliteal veins are patent and normally brad sible. The greater saphenous vein and the profunda femoris vein at the junction with the common femor al vein are clear. The visualized calf veins are patent. IMPRESSION: There is no sonographic evidence of deep venous thrombosis identified in the right lower extremity. ACT 112: Negative or not required by law. Electronically signed by: Don Toledo M.D. 11/14/2022 9:21 PM
[2022-11-15 06:02] LABS: Albumin Globulin Ratio 1.1 (0.9-2); Albumin Level 3.5 gm/dl (3.4-5.0); BUN Creatinine Ratio 13.7 (10-20); Bilirubin,Total 0.5 mg/dl (0.2-1.0); Calcium 9.3 mg/dl (8.5-10.1); Creatinine Clr Calc Pharmacy 68.2 ml/min; Est GFR (African American) 61.3 ml/min; Est GFR (Non-African American) 52.9 ml/min; Globulin 3.2 gm/dl (2.5-4.0); Magnesium 2.2 mg/dl (1.7-2.4); Phosphorus 2.9 mg/dl (2.5-4.9); Potassium 4.1 mmol/L (3.5-5.1); Total Protein 6.7 gm/dl (6.0-8.3)
[2022-11-15 06:10] LABS: Basophils # (auto) 0.05 K/uL (0-0.2); Basophils % (auto) 0.4 %; Eosinophils # (auto) 0.27 K/uL (0-0.50); Eosinophils % (auto) 1.9 %; Hemoglobin 11.3 g/dl (14.0-18.0); Immature Granulocytes # (auto) 0.07 K/uL (0.01-0.20); Immature Granulocytes % (auto) 0.5 %; Lymphocytes # (auto) 2.23 K/uL (1.2-3.4); Mean Corpuscular Hemoglobin 25.3 pg (25.0-34.0); Mean Corpuscular Hgb Conc 29.7 g/dL (32.0-36.0); Mean Corpuscular Volume 85.2 fL (80.0-100.0); Mean Platelet Volume 10.5 fL (9.4-12.4); Monocytes # (auto) 1.94 K/uL (0.11-0.59); Monocytes % (auto) 13.9 %; Neutrophils # (auto) 9.41 K/uL (1.40-6.50); Neutrophils % (auto) 67.3 %; Platelet Count 261 K/uL (130-400); RDW Coefficient of Variation 16.4 % (11.5-14.5); RDW Standard Deviation 50.7 fL (36.4-46.3); Red Blood Count 4.46 M/uL (4.70-6.10); White Blood Count 13.97 K/ul (4.8-10.8)
[2022-11-15 07:49] LABS: Estimated Average Glucose 146 mg/dl; Hemoglobin A1C 6.7 % (4.5-5.6)
[2022-11-15] MEDS ORDERED: LANTUS PER UNIT CHARGE SQ ONE ×2 (08:00→16:30)
[2022-11-15] MEDS: INSULIN ASPART PER UNIT SC SCH ×5 (08:16→23:34)
[2022-11-15] MEDS: CHOLECALCIFEROL 1,000 UNITS 25 MCG TAB PO SCH ×2 (08:17→21:10)
[2022-11-15] MEDS: CYANOCOBALAMIN (B-12) 2,500 MCG TABLET SL SCH (08:17)
[2022-11-15] MEDS: ATORVASTATIN 40 MG TAB PO SCH (08:17)
[2022-11-15] MEDS: TORSEMIDE 100 MG TAB PO SCH (08:19)
[2022-11-15] MEDS: METOPROLOL SUCC 50MG EXT REL TAB PO SCH (08:19)
[2022-11-15] MEDS: SPIRONOLACTONE 25 MG TAB PO SCH (08:19)
[2022-11-15] MEDS: POTASSIUM CHLORIDE CRTAB 20 MEQ TABCR PO SCH (08:19)
[2022-11-15] MEDS: FLUoxetine HCL 20 MG CAP PO SCH ×2 (08:19→21:11)
[2022-11-15] MEDS: cefTRIAXone SODIUM 2,000 MG in DEXTROSE 5% 50 ML IV SCH (08:23)
--- NOTE | 2022-11-15 09:23 | Orthopedic Consultation ---
Date of Consultation November 15, 2022 Assessment & Plan (1) Right knee pain: Laboratory values and x-rays reviewed. Mild effusion noted of the right knee. Right TKA is present and no loosening is noted. No fractures. Laboratory values on admission as above HPI. This morning his white count has dropped down to 13. Uric acid was noted to be 7.1. I have notified Dr. Day who was consulted on this patient last night. I have also discussed the case with Dr. Remberto Fabian secondary to the fact that he was the surgeon who placed both knees in the past. With the patient's history and even though his exam of the right knee is not grossly abnormal, he feels that a knee aspiration is warranted. (Patient has a noted history of MRSA infection of his right ankle after fixation in the past.) We will plan for aspiration of the right knee. Also plan for x- ray of left knee secondary to patient complaint of left knee pain. I discussed with the patient about the need for aspiration of the right knee. Patient is in agreement with the aspiration. Complications of aspiration not all-inclusive but including bleeding at the aspiration site, bleeding into the right knee joint, risk of infection. And anterior medial aspiration site was chosen on the right knee. A small impression was made at the aspiration site. This was then cleansed with alcohol swab and 3 Betadine swabs and let the dry. Ethyl chloride was then sprayed on the aspiration site for skin anesthetization. An 18-gauge needle was then inserted into the right knee joint without difficulty. 20 cc of clear yellow fluid was removed. The needle was removed and a 4 x 4 was placed over the aspiration site and pressure was applied for approximately 30 seconds. A small pinhead sized amount of blood was at the aspiration site and a Band-Aid was placed over this. Patient tolerated the aspiration well. Fluid will be sent for gram stain/culture. Cell count and crystal analysis. History of Present Illness Reason for Consultation: Right Knee Pain Attending Physician: Poli Luis MD History of Present Illness Patient is a 77-year-old male with a significant past medical history of hypertension, hyperlipidemia, heart failure with preserved ejection fraction, peripheral neuropathy, chronic hypoxemia requiring 2 L nasal cannula at night, restrictive lung disease secondary to morbid obesity, restrictive cardiomyopathy, CKD 3, and diabetes. Patient came to the emergency room yesterday for noted nausea and vomiting. Patient notes history of mild congestion and cough for the previous week. He states that yesterday morning he began having increased abdominal discomfort and also had some worsening right knee pain. Patient had several episodes of emesis and abdominal pain thereafter. He states that he was running fevers at home but is unsure of the actual temperature. He states that he was having right knee pain that was worse than usual. Patient has a history of having total knee arthroplasties of the left and right knees. Left knee was done in 2010 and his right knee was done in [address] Remberto Fabian. Patient states that he has had pain off and on in the knees at certain times over the years. He feels left greater than right. He has had no problems doing daily activities and no overt problems with ambulation. He states that he was having pain in his right knee several days prior that was mild. This continued to worsen somewhat but stated that he was still able to ambulate. Patient does state he has a history of gout but never in his knees and has been in the great toe at one point in the past. Once he began having his nausea and vomiting episodes, he was not getting up and ambulating mainly secondary to his abdominal discomfort. Patient decided to come into the emergency room where he was seen by the staff. It was noted white count was 15. Sed rate was 70 and his CRP was 2.16. Initial temperature on ad mission was 39. He was also tachypneic and tachycardic. Patient was admitted with acute on chronic respiratory failure with hypoxemia/sepsis syndrome. With his noted increased knee pain, we were asked to see him for question of septic right knee versus gout. Allergies Allergy/AdvReac Type Severity Reaction Status Date / Time adhesive tape Allergy Mild Redness of Verified 11/14/22 11:29 Skin Iodinated Contrast Media AdvReac Intermediate Gastrointestinal Verified 11/14/22 11:29 Upset Iodine Solution SOLN AdvReac Unknown Unknown Uncoded 11/14/22 11:29 Home Medications Medication Instructions Recorded Confirmed Type aspirin 81 mg tablet,delayed 162 mg PO QAM 01/16/21 11/14/22 History release ([place] Low Dose Aspirin) spironolactone 50 mg tablet 50 mg PO DAILY 08/26/21 11/14/22 History albuterol sulfate 90 mcg/actuation 2 puff inhalation Q4H PRN 12/26/21 11/14/22 History aerosol inhaler Shortness Of Breath Or Wheezing lorazepam 0.5 mg tablet 0.5 mg sublingual Q6H PRN Anxiety 12/26/21 11/14/22 History empagliflozin 10 mg tablet 10 mg PO QAM #30 tabs 01/22/22 11/14/22 Rx (Jardiance) torsemide 100 mg tablet 100 mg PO QAM 02/11/22 11/14/22 History metoprolol succinate 50 mg 50 mg PO QAM 03/24/22 11/14/22 History tablet,extended release 24 hr cholecalciferol (vitamin D3) 50 50 mcg PO BID #180 caps 05/09/22 11/14/22 Rx mcg (2,000 unit) capsule cyanocobalamin (vitamin B-12) 2,500 mcg PO DAILY 90 days #90 tabs 05/25/22 11/14/22 Rx 2,500 mcg tablet Oxygen Home #1 ea 05/31/22 11/14/22 Rx flash glucose scanning reader #1 ea 06/02/22 11/14/22 Rx (FreeStyle Shlomo 2 Narka) fluoxetine 20 mg capsule See Rx Instructions .Route 06/07/22 11/14/22 Rx .COMPLEX #270 caps pen needle, diabetic 31 gauge x #200 ea 06/13/22 11/14/22 Rx 5/16" (BD Ultra-Fine Short Pen Needle) atorvastatin 40 mg tablet 40 mg PO QAM #90 tabs 07/04/22 11/14/22 Rx semaglutide 0.25 mg or 0.5 mg (2 0.5 mg (0.4 mL) subcut WK #1.5 mL 09/12/22 11/14/22 Rx mg/1.5 mL) subcutaneous pen injector (Ozempic) omeprazole 20 mg capsule,delayed 20 mg PO QAM #90 caps 09/16/22 11/14/22 Rx release potassium chloride 20 mEq 20 meq PO QAM #90 tabs 09/16/22 11/14/22 Rx tablet,extended release insulin glargine 100 unit/mL (3 40 unit (0.4 mL) subcut BID #45 mL 09/20/22 11/14/22 Rx mL) subcutaneous pen (Basaglar KwikPen U-100 Insulin) flash glucose sensor (FreeStyle #2 KITS 11/01/22 11/14/22 Rx Shlomo 2 Sensor kit) Patient History Medical History Acute heart failure with preserved ejection fraction (HFpEF) Anxiety and depression BPH (benign prostatic hyperplasia) Chronic diastolic heart failure, NYHA class 3 Degenerative disc disease Diabetes mellitus type 2, insulin dependent GERD (gastroesophageal reflux disease) H/O deep venous thrombosis 5+ yrs ago s/p fall Hyperlipidemia Hypertension Morbid obesity Nonobstructive atherosclerosis of coronary artery Osteoarthritis Pressure ulcer of right ankle, stage 2 Pulmonary emphysema Restrictive cardiomyopathy Restrictive lung disease secondary to obesity Septic arthritis (01/24/14) Sleep apnea BIPAP Surgical History Difficult intubation "Elective" glidescope noted on 08/2018 [facility] record History of arthroscopy RIGHT SHOULDER History of cardiac cath MULTIPLE (NO STENTS PLACED) MOST RECENT= 2018 History of cataract surgery RT/LEFT History of colonoscopy History of esophagogastroduodenoscopy (EGD) History of herniorrhaphy multiple History of open reduction and internal fixation (ORIF) procedure LEFT WRIST (HARDWARE REMOVED) 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) History of tooth extraction History of total knee replacement RIGHT/LEFT Hx of transurethral resection of prostate S/P cholecystectomy Status post total hip replacement, left Family History Mother Stroke Alzheimer disease Father MVA (motor vehicle accident) Sister Breast cancer Denies family history of Ovarian cancer Prostate cancer Myocardial infarction Colorectal cancer Social History Smoking Status: Former smoker Tobacco Type: Cigarettes Age Started Using Tobacco: 18; Cigarettes Per Day: HX OF 1-2 PPD X 10 YEARS, QUIT IN 1974; Second Hand Exposure: No; Hx Alcohol Use: No Hx Substance Use: No Preferred Language: Filipino Communication Ability: Effective Visual Impairment: No Limitations Hearing Ability: Normal 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 He is sleeping upon arrival but is easily awoken. He is alert and oriented x3. No acute distress. Pleasant and cooperative. Complains that he does have some right knee pain this morning and that his abdomen is feeling better. He feels that the right knee pain is better this morning. On examination of his right lower extremity, he has a well-healed scar over the midline of the right knee from previous TKA. He has mild swelling at best compared to the left. He states that the right knee has always been a little bit more swollen than the left ever since having his total knee replacement done. There is no overt erythema. There is no tense effusion. He does not have much in the way of overt heat generating from the right knee compared to the left. He has no pain on palpation of the knee at this time. He is able to take it through range of motion on his own. Range of motion is 0 to 100 degrees. No overt crepitus. Calves are soft nontender. Collateral ligaments appear stable at this time. Patient does complain of pain in the right knee with range of motion. Again he states that the pain was worse yesterday but today is somewhat better. Left lower extremity is benign other than the well healed midline scar noted from previous left TKA in 2010. He has full range of motion of this knee which he states he is having some mild discomfort in as well but not like the right knee. He states that he has had pain in his left knee in the past as well. Again no overt erythema, no overt warmth to the touch, no effusion noted. Range of motion within normal limits as noted. Axial loading of the right knee at this time does not increase his pain. Patient has no pain in the right thigh and/or hip. Range of motion of the right hip is within normal limits. There is no gross motor or sensory loss at this time. Results & Data ([facility]) Vital Signs (Past 12 Hours) Vital Signs Temp Pulse Pulse Resp BP Pulse Ox O2 Del Method 11/15/22 07:56 Nasal Cannula 11/15/22 03:00 37.2 C 92 H 20 131/73 94 Nasal Cannula 11/14/22 23:32 77 11/14/22 23:00 Nasal Cannula 11/14/22 23:00 37.1 C 87 22 122/63 98 Nasal Cannula O2 Flow Rate 11/15/22 07:56 5 11/15/22 03:00 5 11/14/22 23:32 11/14/22 23:00 5 11/14/22 23:00 5 Laboratory Results Laboratory Results WBC 13.97 K/ul (4.8-10.8) H 11/15/22 05:26 RBC 4.46 M/uL (4.70-6.10) L 11/15/22 05:26 Hgb 11.3 g/dl (14.0-18.0) L 11/15/22 05:26 Hct 38.0 % (42.0-52.0) L 11/15/22 05:26 MCV 85.2 fL (80.0-100.0) 11/15/22 05:26 MCH 25.3 pg (25.0-34.0) 11/15/22 05:26 MCHC 29.7 g/dL (32.0-36.0) L 11/15/22 05:26 RDW Std Deviation 50.7 fL (36.4-46.3) H 11/15/22 05:26 RDW Coeff of Kartik 16.4 % (11.5-14.5) H 11/15/22 05:26 Plt Count 261 K/uL (130-400) 11/15/22 05:26 MPV 10.5 fL (9.4-12.4) 11/15/22 05:26 Immature Gran % (Auto) 0.5 % 11/15/22 05:26 Neut % (Auto) 67.3 % 11/15/22 05:26 Lymph % (Auto) 16.0 % 11/15/22 05:26 Mora % (Auto) 13.9 % 11/15/22 05:26 Eos % (Auto) 1.9 % 11/15/22 05:26 Baso % (Auto) 0.4 % 11/15/22 05:26 Neut # (Auto) 9.41 K/uL (1.40-6.50) H 11/15/22 05:26 Lymph # (Auto) 2.23 K/uL (1.2-3.4) 11/15/22 05:26 Mora # (Auto) 1.94 K/uL (0.11-0.59) H 11/15/22 05:26 Eos # (Auto) 0.27 K/uL (0-0.50) 11/15/22 05:26 Baso # (Auto) 0.05 K/uL (0-0.2) 11/15/22 05:26 Immature Gran # (Auto) 0.07 K/uL (0.01-0.20) 11/15/22 05:26 ESR 70 mm/hr (0-20) H 11/14/22 09:04 Sodium 136 mmol/L (136-145) 11/15/22 05:26 Potassium 4.1 mmol/L (3.5-5.1) 11/15/22 05:26 Chloride 99 mmol/L (98-107) 11/15/22 05:26 Carbon Dioxide 32 mmol/L (21-32) 11/15/22 05:26 Anion Gap 5 (3-11) 11/15/22 05:26 BUN 18 mg/dl (6-23) 11/15/22 05:26 Creatinine 1.31 mg/dl (0.6-1.4) 11/15/22 05:26 Est Cr Clr Drug Dosing 68.2 ml/min 11/15/22 05:26 Est GFR ( Amer) 61.3 ml/min 11/15/22 05:26 Est GFR (Non-Af Amer) 52.9 ml/min 11/15/22 05:26 BUN/Creatinine Ratio 13.7 (10-20) 11/15/22 05:26 Glucose 100 mg/dl (70-99(Fasting)) H 11/15/22 05:26 POC Glucose 123 mg/dl (70-99) H 11/15/22 07:18 POC Glucose 133 mg/dl (70-99) H 11/15/22 07:18 Estimat Average Glucose 146 mg/dl 11/15/22 05:26 Hemoglobin A1c 6.7 % (4.5-5.6) H 11/15/22 05:26 Lactate 1.6 mmol/L (0.4-2.0) 11/14/22 09:04 Uric Acid 7.1 mg/dl (2.6-7.2) 11/14/22 09:04 Calcium 9.3 mg/dl (8.5-10.1) 11/15/22 05:26 Phosphorus 2.9 mg/dl (2.5-4.9) 11/15/22 05:26 Magnesium 2.2 mg/dl (1.7-2.4) 11/15/22 05:26 Total Bilirubin 0.5 mg/dl (0.2-1.0) 11/15/22 05:26 Direct Bilirubin 0.1 mg/dl (0-0.2) 11/14/22 09:04 AST 13 U/L (13-39) 11/15/22 05:26 ALT 13 U/L (7-52) 11/15/22 05:26 Alkaline Phosphatase 77 U/L (34-104) 11/15/22 05:26 Troponin I High Sens 11.1 pg/ml (0-20) 11/14/22 09:04 C-Reactive Protein 2.16 mg/dl (0-0.5) H 11/14/22 09:04 Total Protein 6.7 gm/dl (6.0-8.3) 11/15/22 05:26 Albumin 3.5 gm/dl (3.4-5.0) 11/15/22 05:26 Globulin 3.2 gm/dl (2.5-4.0) 11/15/22 05:26 Albumin/Globulin Ratio 1.1 (0.9-2) 11/15/22 05:26 Procalcitonin 0.10 ng/ml (0-0.5) 11/14/22 09:04 Urine Color Yellow 11/14/22 Unknown Urine Appearance Clear (Clear) 11/14/22 Unknown Urine pH 8.0 (4.5-7.5) H 11/14/22 Unknown Ur Specific [place] 1.027 (1.000-1.030) 11/14/22 Unknown Urine Protein Trace (Negative) H 11/14/22 Unknown Urine Glucose (UA) 3+ (Negative) H 11/14/22 Unknown Urine Ketones Negative (Negative) 11/14/22 Unknown Urine Blood Negative (Negative) 11/14/22 Unknown Urine Nitrite Negative (Negative) 11/14/22 Unknown Urine Bilirubin Negative (Negative) 11/14/22 Unknown Urine Urobilinogen Negative (Negative) 11/14/22 Unknown Ur Leukocyte Esterase Negative (Negative) 11/14/22 Unknown Urine WBC (Auto) 1-5 /hpf (0-5) 11/14/22 Unknown Urine RBC (Auto) 0-4 /hpf (0-4) 11/14/22 Unknown U Hyaline Cast (Auto) 0 /lpf (0-5) 11/14/22 Unknown U Epithel Cells (Auto) 0-5 /lpf (0-5) 11/14/22 Unknown Urine Bacteria (Auto) Negative (Negative) 11/14/22 Unknown Nasal Screen MRSA (PCR) Negative (Negative) 11/14/22 17:07 Adenovirus (PCR) Not Detected (NotDetected) 11/14/22 Unknown B. pertussis DNA (PCR) Not Detected (NotDetected) 11/14/22 Unknown B.parapertussis DNA PCR Not Detected (NotDetected) 11/14/22 Unknown C. pneumoniae DNA (PCR) Not Detected (NotDetected) 11/14/22 Unknown Coronavirus OC43 (PCR) Not Detected (NotDetected) 11/14/22 Unknown Coronavirus HKU1 (PCR) Not Detected (NotDetected) 11/14/22 Unknown Coronavirus 229E (PCR) Not Detected (NotDetected) 11/14/22 Unknown SARS-CoV-2 (PCR) NEGATIVE (Negative) 11/14/22 Unknown SARS-CoV-2 (PCR) Not Detected (NotDetected) 11/14/22 Unknown Coronavirus NL63 (PCR) Not Detected (NotDetected) 11/14/22 Unknown Human Metapneumovir PCR Not Detected (NotDetected) 11/14/22 Unknown Influenza Type A (PCR) Negative (Neg) 11/14/22 Unknown Influenza Type A (PCR) Not Detected (NotDetected) 11/14/22 Unknown Influenza Type B (PCR) Negative (Neg) 11/14/22 Unknown Influenza Type B (PCR) Not Detected (NotDetected) 11/14/22 Unknown M. pneumoniae (PCR) Not Detected (NotDetected) 11/14/22 Unknown Parainfluenza 1 (PCR) Not Detected (NotDetected) 11/14/22 Unknown Parainfluenza 2 (PCR) Not Detected (NotDetected) 11/14/22 Unknown Parainfluenza 3 (PCR) Not Detected (NotDetected) 11/14/22 Unknown Parainfluenza 4 (PCR) Not Detected (NotDetected) 11/14/22 Unknown RSV (RT-PCR) Negative (Neg) 11/14/22 Unknown RSV (PCR) Not Detected (NotDetected) 11/14/22 Unknown Entero/Rhino (PCR) Not Detected (NotDetected) 11/14/22 Unknown Impressions Chest X-Ray 11/14/22 08:39 XR chest 1V portable HISTORY: 77 years-old Male Sepsis acute sepsis COMPARISON: 05/31/2022 TECHNIQUE: AP view of the chest FINDINGS: Cardiac silhouette is mildly enlarged. Atherosclerosis of the aorta. Blunting of the costophrenic angles. No pneumothorax or overt pulmonary edema. Mild subsegmental linear bibasilar densities. Degenerative changes of the shoulders and spine. IMPRESSION: 1. Cardiomegaly without acute process. 2. Mild bibasilar atelectasis. ACT 112: Negative or not required by law. The above report was generated using voice recognition software. It may contain grammatical, syntax or spelling errors. Electronically signed by: Gurvinder Ritchie M.D. 11/14/2022 8:54 AM Abdomen/Pelvis CT 11/14/22 08:[address] WITHOUT CONTRAST CT DOSE: 1129.23 mGycm HISTORY: Acute generalized abdominal pain abd pain TECHNIQUE: Multiaxial CT images of the abdomen and pelvis were performed without contrast. A dose lowering technique was utilized adhering to the principles of ALARA. COMPARISON STUDY: 01/16/2021 FINDINGS: Limited study secondary to respiratory motion, upper extremity positioning and lack of contrast. Coronary artery calcifications. The heart is normal in size. Mild bibasilar atelectasis. No pneumatosis or pneumoperitoneum. The unenhanced spleen, pancreas and adrenal glands are unremarkable. Ch olecystectomy. 1.5 cm linear calcified structure is again noted abutting the inferior right hepatic lobe on image 213. Mild nonspecific bilateral perinephric stranding. A few bilateral renal cysts are redemonstrated. No definite urolith or hydronephrosis. Pelvic structures are suboptimally visualized secondary to artifact from the hip arthroplasties. Aorta and IVC are unremarkable. 1.2 cm nodular focus abutting the left seminal vesicles on image 399.. No bowel obstruction or bowel wall thickening. Mild colonic fecal retention. Normal appendix. Ascites or mesenteric inflammation. Prior ventral abdominal wall herniorrhaphy. Degenerative changes of the spine and pelvis. Bilateral hip arthroplasties. IMPRESSION: 1. Limited exam as above. 2. No bowel obstruction or bowel wall thickening. 3. Additional findings as above. ACT 112: Negative or not required by law. The above report was generated using voice recognition software. It may contain grammatical, syntax or spelling errors. Electronically signed by: Gurvinder Ritchie M.D. 11/14/2022 10:15 AM Knee X-Ray 11/14/22 11:42 XR knee RT 3V CLINICAL HISTORY: Anterior pain, Please include sunrise view. COMPARISON: Right knee radiographs February 01, 2016. FINDINGS: Alignment of the total right knee arthroplasty is anatomic. No periprosthetic fracture or lucency is identified. There is a small effusion. IMPRESSION: 1. Intact total right knee arthroplasty. No periprosthetic fracture or lucency. 2. Small right knee joint effusion. ACT 112: Negative or not required by law. Electronically signed by: Sha Fuentes M.D. 11/14/2022 12:21 PM Venous Doppler Study 11/14/22 11:42 ULTRASOUND RIGHT LOWER EXTREMITY VENOUS CLINICAL HISTORY: Right leg pain and swelling. COMPARISON STUDY: Bilateral lower extremity venous ultrasound dated 01/20/2022 TECHNIQUE: Real-time, grayscale, and color Doppler sonography of the deep veins of the right lower extremity was performed from the inguinal crease to the calf. Compression and augmentation were utilized. FINDINGS: There is no sonographic evidence of deep venous thrombosis identified in the right lower extremity. The common femoral, superficial femoral, and popliteal veins are patent and normally compressible. The greater saphenous vein and the profunda femoris vein at the junction with the common femoral vein are clear. The visualized calf veins are patent. IMPRESSION: There is no sonographic evidence of deep venous thrombosis identified in the right lower extremity. ACT 112: Negative or not required by law. Electronically signed by: Don Toledo M.D. 11/14/2022 9:21 PM
[2022-11-15] MEDS: ASPIRIN 81 MG ECTAB PO SCH (10:02)
--- NOTE | 2022-11-15 10:13 | Pharmacy Report ---
Pharmacy Glycemic Short Note 2 - Date of Service November 15, 2022 - Glycemic Short BSG Results (Last 24 hours): 11/14/22 11/14/22 11/14/22 14:39 17:18 20:13 Glucose POC Glucose 95 94 132 H 11/15/22 11/15/22 11/15/22 05:26 07:17 07:18 Glucose 100 H POC Glucose 330 H* 123 H 11/15/22 07:18 Glucose POC Glucose 133 H OUTPATIENT ANTIDIABETIC REGIMEN: * Jardiance 10 mg PO daily * Ozempic * Lantus 40 units SC BID HbA1c: 6.7% (11/15/22) ASSESSMENT: 11/15: * BSGs 132-133mg/dL last night into this AM. Pt received 40 units of basal (FIRE TENDER) and 5 units of bolus insulin yesterday. Fasting within goal range this AM. * Clear liquid diet ordered and continues on antibiotics. SCr down-trending. * Continued decreased PO at this time (clears). Given BSGs controlled with 40 total units of basal yesterday, reduced dose of basal this AM- 15 units. Lantus scale tonight with dinner d/t rise in BSG at lunch. No change to Novolog parameters- add overnight checks. 11/14: * TW is a 77 year old male who presents to ED today with complaints of increased shortness of breath and abdominal pain (w/ N&V) * Pertinent PMH includes obesity, CHF, and T2DM * Reported giving 40 units of Lantus this morning prior to admission * BSG of 146 mg/dL on presentation and 95 mg/dL this afternoon at time of consult * Clear liquid diet ordered at this time * Initial insulin orders per sliding scale calculator w/ consideration for adjusted body weight/reported home dose of insulin PLAN FOR INPATIENT GLYCEMIC CONTROL: * Hold outpatient oral diabetes medications * Basal insulin * Lantus 15 units SQ X 1 + silvestre scale * Bolus insulin * NovoLog per scale ACHS or Q6hrs while NPO * Goal Range: Low 110 mg/dL - High 140 mg/dL * Correction Factor: 25 mg/dL/unit * Nutritional / Prandial insulin per carb ratio of 1 unit per 8 grams CHO consumed
[2022-11-15] MEDS ORDERED: ETHYL CHLORIDE AER SPR 100 ML CAN EXT ONE (10:15)
[2022-11-15] MEDS: oxyCODONE HCL IR 5 MG TAB (IMMEDIATE RELEASE) PO PRN ×2 (10:26→21:09)
--- NOTE | 2022-11-15 11:15 | XRay Report ---
XR knee LT 1 or 2V routine CLINICAL HISTORY: Left knee pain. COMPARISON: Left knee radiographs October 28, 2011. FINDINGS: Alignment of the left knee arthroplasty is anatomic. There is no periprosthetic fracture o r lucency. There is a possible small joint effusion. IMPRESSION: 1. Intact total left knee arthroplasty. No periprosthetic fracture or lucency. 2. Possible small left knee joint effusion. ACT 112: Negative or not required by law. Electronically signed by: Sha Fuentes M.D. 11/15/2022 11:13 AM
[2022-11-15 11:22] LABS: Appearance Synovial Fluid Cloudy; Color Synovial Fluid Pale Yellow; Mononuclear WBC Synovial 41.2 %; Polynuclear WBC Synovial 58.8 %; RBC Synovial Fluid Auto < 2000 /uL; Source Synovial Fluid Right Knee; WBC Synovial Fluid Auto 1048 /ul (0-200)
--- NOTE | 2022-11-15 16:38 | Hospitalist Progress Note ---
Date of Service November 15, 2022 Assessment & Plan (1) Acute on chronic respiratory failure with hypoxemia: Plan: 77-year-old male presenting with nausea and vomiting found to be hypoxemic which is acute on his chronic hypoxemic respiratory failure requiring inpatient evaluation for marked leukocytosis and concerns for sepsis syndrome in the febrile patient. Currently patient is on 2 L which is his baseline, white cell count is trending down , advance diet to 1800 ADA diet, patient feels hungry and he is not nauseated continue Rocephin for now, blood cultures so far negative , * Previous visit notes suggest underlying restrictive lung disease in the setting of obesity hypoventilation syndrome. Patient does utilize 2 L nasal cannula to sleep at night. It sounds as though he has been reluctant to be evaluated for or comply with BiPAP in the setting of likely RAMAN diagnosis. * BiPAP at night. * P Chest x-ray without acute findings, however we will monitor as the patient has had recent episodes of vomiting and he certainly could be experiencing a degree of aspiration pneumonitis. Improving, continue Rocephin * Patient would likely benefit from pulmonary evaluation. This can certainly be done in the outpatient setting pending his clinical progress. * Downgrade to [facility] telemetry bed (2) Sepsis syndrome: Plan: * In relationship to leukocytosis, tachycardia, and tachypnea. * Of questionable source at this time. Leukocytosis could be stress induced due to nausea and vomiting it is trending, versus due to respiratory source certainly, the patient did have some underlying upper respiratory complaints for the past week or so, however his initial influenza, RSV, and COVID screening were all negative. * Bio fire study negative * Lactic acid and procalcitonin unremarkable. * Because of knee pain the admitting provider recommended Ortho for joint aspiration, history of gout, synovial white cells about thousand, no crystals , synovial fluid gram stain negative, cultures pending * The exam of the knees is not impressive, x-ray of the knee is not impressive, * While the patient's leukocytosis certainly could be stress-induced in the setting of recent vomiting, we cannot ignore the ongoing fevers, particularly with blood cultures pending and extended respiratory panel pending. * Will continue with Rocephin for now. (3) Sinus pause: Plan: Overnight patient had 3-second sinus pause asymptomatic, continue monitor for now (4) Nausea and vomiting: Plan: * Uncertain of cause at this time. * Patient without sick contacts. No recent consumption of raw/undercooked foods. No recent long distance travel. No drinking from poor water sources. * Patient did complain of some abdominal discomfort. He has some mild subjective tenderness to palpation on exam. CT without acute findings otherwise. * Patient requesting advancement in his diet at this point., Possibly viral * Advance to ADA diet (5) Acute kidney injury superimposed on chronic kidney disease: Plan: * Likely in the setting of volume depletion with nausea and vomiting. * Received 1.5 L intravenously. * Will hold on further IV fluid supplementation at this time given the patient's history of CHF and his and clinical improvement at this time (6) Testicular nodule: Plan: * Incidental finding on CT. * Physical exam without significant findings. * Appreciate urology input. (7) Hypertension: Plan: * Appears to be fairly well managed at home. * Continue home medications as tolerated. (8) Hyperlipidemia: Plan: * Continue home medications as tolerated. (9) Obstructive sleep apnea: Plan: * Encourage utilization of BiPAP. (10) Type 2 diabetes mellitus: Plan: * Hold on home medications. * Will start on sliding scale. (11) Restrictive lung disease secondary to obesity: Plan: * Previous diagnosis in relationship to the patient's morbid obesity. * Encourage BiPAP use. * Continue with supplemental oxygen as needed. (12) Chronic diastolic heart failure: Plan: * Without exam findings or imaging studies suspicious of pulmonary contribution at this time. * Will continue with his torsemide tomorrow. Admission and Anticipated Discharge Date Admission Date: November 14, 2022 Subjective He feels better,, he states that he is hungry, wants to advance his diet, Physical Exam Physical Exam: Patient is a 77-year-old obese white male who appears his stated age. He is sleeping upon arrival but is easily awoken. He is alert and oriented x3. No acute distress. Pleasant and cooperative. On examination of his right lower extremity, he has a well-healed scar over the midline of the right knee from previous TKA. He has mild swelling at best compared to the left. He states that the right knee has always been a little bit more swollen than the left ever since having his total knee replacement done. There is no overt erythema. There is no tense effusion. He does not have much in the way of overt heat generating from the right knee compared to the left. He has no pain on palpation of the knee at this time. He is able to take it through range of motion on his own. Range of motion is 0 to 100 degrees. No overt crepitus. Calves are soft nontender. Collateral ligaments appear stable at this time. Patient does complain of pain in the right knee with range of motion. Again he states that the pain was worse yesterday but today is somewhat better. Left lower extremity is benign other than the well healed midline scar noted from previous left TKA in 2010. He has full range of motion of this knee which he states he is having some mild discomfort in as well but not like the right knee. He states that he has had pain in his left knee in the past as well. Again no overt erythema, no overt warmth to the touch, no effusion noted. Range of motion within normal limits as noted. Axial loading of the right knee at this time does not increase his pain. Patient has no pain in the right thigh and/or hip. Range of motion of the right hip is within normal limits. There is no gross motor or sensory loss at this time. Results & Data Results & Data ([facility]) Vital Signs (Past 12 Hours) Vital Signs Temp Pulse Resp BP Pulse Ox Pulse Ox O2 Del Method 11/15/22 14:00 82 21 143/84 H 90 Nasal Cannula 11/15/22 12:00 80 20 118/67 95 Nasal Cannula 11/15/22 12:00 96 11/15/22 08:00 37.0 C 99 H 24 118/62 93 Nasal Cannula 11/15/22 07:56 Nasal Cannula O2 Del Method O2 Flow Rate O2 Flow Rate 11/15/22 14:00 2 11/15/22 12:00 4 11/15/22 12:00 Nasal Cannula 4 11/15/22 08:00 5 11/15/22 07:56 5 PG Care Time/CCT Total # of Minutes Spent Total Time Spent with Patient: Total time spent is greater than 50% in coordination of care (as documented) at patient's floor/unit and/or counseling patient: Coding Level of Care Code 36102 SUB INP/OBS CARE 3/50MIN Diagnoses Acute on chronic respiratory failure with hypoxemia J96.21 Sepsis syndrome Sinus pause I45.5 Nausea and vomiting R11.2 Acute kidney injury superimposed on chronic kidney disease N17.9; N18.9 Testicular nodule N50.89 Hypertension I10 Hypertension type: essential hypertension Hyperlipidemia E78.5 Hyperlipidemia type: unspecified Obstructive sleep apnea G47.33 Type 2 diabetes mellitus E11.9 Restrictive lung disease secondary to obesity J98.4; E66.9 Chronic diastolic heart failure I50.32 (1) Hypertension Hypertension type: essential hypertension Qualified Code(s): I10 - Essential (primary) hypertension (2) Hyperlipidemia Hyperlipidemia type: unspecified Qualified Code(s): E78.5 - Hyperlipidemia, unspecified
[2022-11-15] MEDS: ACETAMINOPHEN 325 MG TAB PO PRN (18:42)
[2022-11-15] MEDS: PANTOprazole 40 MG TAB PO SCH (21:11)
[2022-11-16] MEDS: INSULIN ASPART PER UNIT SC SCH ×3 (04:03→12:34)
[2022-11-16] MEDS: ACETAMINOPHEN 325 MG TAB PO PRN (06:06)
[2022-11-16] MEDS: CHOLECALCIFEROL 1,000 UNITS 25 MCG TAB PO SCH (07:47)
[2022-11-16] MEDS: FLUoxetine HCL 20 MG CAP PO SCH (07:47)
[2022-11-16] MEDS: ATORVASTATIN 40 MG TAB PO SCH (07:47)
[2022-11-16] MEDS: SPIRONOLACTONE 25 MG TAB PO SCH (07:47)
[2022-11-16] MEDS: ASPIRIN 81 MG ECTAB PO SCH (07:48)
[2022-11-16] MEDS: METOPROLOL SUCC 50MG EXT REL TAB PO SCH (07:48)
[2022-11-16] MEDS: TORSEMIDE 100 MG TAB PO SCH (07:48)
[2022-11-16] MEDS: CYANOCOBALAMIN (B-12) 2,500 MCG TABLET SL SCH (07:48)
[2022-11-16 07:50] LABS: Hematocrit (blood only) 37.8 % (42.0-52.0); Hemoglobin 11.4 g/dl (14.0-18.0); Mean Corpuscular Hemoglobin 25.2 pg (25.0-34.0); Mean Corpuscular Hgb Conc 30.2 g/dL (32.0-36.0); Mean Corpuscular Volume 83.4 fL (80.0-100.0); Mean Platelet Volume 10.4 fL (9.4-12.4); Platelet Count 258 K/uL (130-400); RDW Coefficient of Variation 16.4 % (11.5-14.5); RDW Standard Deviation 49.7 fL (36.4-46.3); Red Blood Count 4.53 M/uL (4.70-6.10); White Blood Count 12.24 K/ul (4.8-10.8)
[2022-11-16] MEDS: POTASSIUM CHLORIDE CRTAB 20 MEQ TABCR PO SCH (07:50)
[2022-11-16 08:05] LABS: BUN Creatinine Ratio 12.1 (10-20); Calcium 9.7 mg/dl (8.5-10.1); Creatinine Clr Calc Pharmacy 52.4 ml/min; Est GFR (African American) 43.5 ml/min; Est GFR (Non-African American) 37.5 ml/min
[2022-11-16] MEDS ORDERED: LANTUS PER UNIT CHARGE SQ SCH (09:00)
[2022-11-16] MEDS: cefTRIAXone SODIUM 2,000 MG in DEXTROSE 5% 50 ML IV SCH (09:31)
--- NOTE | 2022-11-16 10:10 | Pharmacy Report ---
Pharmacy Glycemic Short Note 2 - Date of Service November 16, 2022 - Glycemic Short BSG Results (Last 24 hours): 11/15/22 11/15/22 11/15/22 11:18 16:32 21:07 Glucose POC Glucose 203 H 82 121 H 11/15/22 11/16/22 11/16/22 23:32 03:59 06:56 Glucose 133 H POC Glucose 135 H 128 H 11/16/22 07:27 Glucose POC Glucose 139 H OUTPATIENT ANTIDIABETIC REGIMEN: * Jardiance 10 mg PO daily * Ozempic * Lantus 40 units SC BID HbA1c: 6.7% (11/15/22) ASSESSMENT: 11/16: * Patient received total of 30 units of insulin total yesterday, of which 15 units were basal insulin * Fasting BSG 133 mg/dL - reasonable to continue same basal this AM. * BSGs well controlled yesterday, no change to CF/CR 11/15: * BSGs 132-133mg/dL last night into this AM. Pt received 40 units of basal (ULTRASONIC TESTER) and 5 units of bolus insulin yesterday. Fasting within goal range this AM. * Clear liquid diet ordered and continues on antibiotics. SCr down-trending. * Continued decreased PO at this time (clears). Given BSGs controlled with 40 total units of basal yesterday, reduced dose of basal this AM- 15 units. Lantus scale tonight with dinner d/t rise in BSG at lunch. No change to Novolog parameters- add overnight checks. 11/14: * TW is a 77 year old male who presents to ED today with complaints of increased shortness of breath and abdominal pain (w/ N&V) * Pertinent PMH includes obesity, CHF, and T2DM * Reported giving 40 units of Lantus this morning prior to admission * BSG of 146 mg/dL on presentation and 95 mg/dL this afternoon at time of consult * Clear liquid diet ordered at this time * Initial insulin orders per sliding scale calculator w/ consideration for adjusted body weight/reported home dose of insulin PLAN FOR INPATIENT GLYCEMIC CONTROL: * Hold outpatient oral diabetes medications * Basal insulin * Lantus 15 units SQ daily * Bolus insulin * NovoLog per scale ACHS or Q6hrs while NPO * Goal Range: Low 110 mg/dL - High 140 mg/dL * Correction Factor: 25 mg/dL/unit * Nutritional / Prandial insulin per carb ratio of 1 unit per 8 grams CHO consumed
--- NOTE | 2022-11-16 16:23 | Discharge Summary ---
Date of Service November 16, 2022 Admission HPI Per Admitting Provider Patient is a 77-year-old male with a significant past medical history of hypertension, hyperlipidemia, heart failure with preserved ejection fraction, peripheral neuropathy, chronic hypoxemia requiring 2 L nasal cannula at night, restrictive lung disease secondary to morbid obesity, restrictive cardiomyopathy, CKD 3, and diabetes. Patient has had mild nasal congestion and cough for the past week or so. Despite that, he has had no complaints of shortness of breath or worsening hypoxia. He continues to wear 2 L nasal cannula at night as instructed. Patient has not had a sleep study recently and reports that he does not utilize his BiPAP as he is supposed to. This morning at approximate 6 AM, the patient developed intense nausea with associated vomiting. He reports vomiting several times and had post emesis shakiness. He has had some mild abdominal discomfort since vomiting, but reports that the symptoms of pain started after the rounds of vomiting. He reports that his nausea feels better after administration of Zofran. He currently complains of pain to the RIGHT knee which she reports has been progressively worsening over the last few days. He reports ongoing swelling to the bilateral lower extremities which she is adamant is not any worse than baseline. He denies any falls or recent trauma to the affected RIGHT lower extremity. He reports that, other than his current illness, he has felt at his baseline and without significant complaints. Patient was noted to have a moderate leukocytosis in excess of 15,000. Lactic acid and procalcitonin within normal limits. Patient was treated with 1.5 L of normal saline for some associated tachycardia. He has a slight CAIT superimposed on CKD 3. Patient was febrile with a T-max of 39.1 C. Fever responded to oral Tylenol. Heart rate has improved. Patient is requiring his baseline 2 L nasal cannula and saturating in the mid 90s. Upon evaluation in room C6, the patient is awake, alert, and oriented. He reports feeling thirsty and that his nausea has since subsided. Other than some mild abdominal discomfort, the patient denies any other symptoms. Regarding imaging findings to the LEFT scrotal area, he denies any redness, swelling, or erythema. He reports no tenderness to palpation. No palpable lumps that he is aware of. Additionally, the patient does report a history of gout, however he has not experienced a gouty flareup in his knees in the past. He has a history of bilateral TKA. Principal Diagnosis knee effusion, acute on chronic respiratory failure Discharge Exam The patient is awake, alert and oriented 3, well developed and well nourished, normocephalic and atraumatic, lying in bed and in no acute distress. HEENT--PERRL, EOMI, mucous membranes and oropharynx mildly dry Neck--supple. No JVD. No bruits. Thyroid normal, trachea midline, no adenopathy. Heart--normal S1 and S2. No murmurs, rubs or gallops. Lungs--clear bilaterally, no respiratory distress, no accessory muscle use. Abdomen--normal bowel sounds and soft. Mild epigastric and left sided abdominal pain Extremities--no cyanosis or clubbing. No edema. Dermatologic--normal skin turgor, normal color, no abnormal lymph nodes, no rash. Neurologic--cranial nerves II through XII grossly intact. Rheumatologic--normal range of motion. Psychiatric--normal affect. Discharge Data Allergies Allergy/AdvReac Type Severity Reaction Status Date / Time adhesive tape Allergy Mild Redness of Verified 11/14/22 11:29 Skin Iodinated Contrast Media AdvReac Intermediate Gastrointestinal Verified 11/14/22 11:29 Upset Iodine Solution SOLN AdvReac Unknown Unknown Uncoded 11/14/22 11:29 Consultations 11/14/22 11:01 ED Decision to Admit Stat 11/14/22 14:42 Consult Orthopedic Surgery Routine Ordered Studies 11/14/22 08:42 CT abd pelvis wo con Stat 11/14/22 11:42 US venous doppler LE RT Urgent Hospital Course (1) Acute on chronic respiratory failure with hypoxemia: 77-year-old male presenting with nausea and vomiting found to be hypoxemic which is acute on his chronic hypoxemic respiratory failure requiring inpatient evaluation for marked leukocytosis and concerns for sepsis syndrome in the febrile patient. * Previous visit notes suggest underlying restrictive lung disease in the setting of obesity hypoventilation syndrome. Patient does utilize 2 L nasal cannula to sleep at night. It sounds as though he has been reluctant to be evaluated for or comply with BiPAP in the setting of likely RAMAN diagnosis. * Will place order for BiPAP to be utilized at night. * Patient currently on 2 L and saturating well. Chest x-ray without acute findings, however we will monitor as the patient has had recent episodes of vomiting and he certainly could be experiencing a degree of aspiration pneumonitis. (2) Sepsis syndrome: * source was likley the knee, which was tapped. Initially on ceftriaxone. Discharge home on Keflex (3) Nausea and vomiting: * Uncertain of cause at this time. * Patient without sick contacts. No recent consumption of raw/undercooked foods. No recent long distance travel. No drinking from poor water sources. * Patient did complain of some abdominal discomfort. He has some mild subject dani tenderness to palpation on exam. CT without acute findings otherwise. * Patient requesting advancement in his diet at this point. * Will provide him clears. (4) Acute kidney injury superimposed on chronic kidney disease: * Likely in the setting of volume depletion with nausea and vomiting. * Received 1.5 L intravenously. * Will hold on further IV fluid supplementation at this time given the patient's history of CHF and his and clinical improvement at this time (5) Testicular nodule: * Incidental finding on CT. * Physical exam without significant findings. * Appreciate urology input. (6) Hypertension: * Appears to be fairly well managed at home. * Continue home medications as tolerated. (7) Hyperlipidemia: * Continue home medications as tolerated. (8) Obstructive sleep apnea: * Encourage utilization of BiPAP. (9) Type 2 diabetes mellitus: * Hold on home medications. * Will start on sliding scale. (10) Restrictive lung disease secondary to obesity: * Previous diagnosis in relationship to the patient's morbid obesity. * Encourage BiPAP use. * Continue with supplemental oxygen as needed. (11) Chronic diastolic heart failure: * Without exam findings or imaging studies suspicious of pulmonary contribution at this time. * Will continue with his torsemide tomorrow. Plan d/c home Total Time Total Time Spent Total Time Spent (In Minutes): 35 Discharge Plan Discharge Items Patient Disposition: Home - Self-Care Reason For Visit: VOMITING, HYPOXIA, SEPSIS SYNDROME Discharge Diagnosis: Transient hypoxia Activity: Resume your previous activity Non-emergency contact: Primary Care Provider Call non-emergency contact if: you have any medication questions Follow-up/Referrals: Melissa Frazier MD [Primary Care Provider] - 11/22/22 3:20 pm (Will see Ragini CLAYTON) Diet: Regular Addtl Attending Provider Instructions: please make appointment to follow up with your regular PCP Pending Studies at Discharge: No Stand-Alone Forms: My [facility], Smoking Cessation Medications and DC Order Prescriptions: New cephalexin 500 mg capsule 500 mg PO BID 7 Days Qty: 14 0RF Continued cholecalciferol (vitamin D3) 50 mcg (2,000 unit) capsule 50 mcg PO BID Qty: 180 1RF cyanocobalamin (vitamin B-12) 2,500 mcg tablet 2,500 mcg PO DAILY 90 Days Qty: 90 1RF (DME) FreeStyle Shlomo 2 [place] Misc See Rx Instructions .Route Qty: 1 0RF Rx Instructions: As directed to check blood sugar (scan at least every 8 hours) fluoxetine 20 mg capsule See Rx Instructions .ROUTE .COMPLEX Qty: 270 3RF Rx Instructions: TAKES 40 MG QAM, THEN 20 MG QPM. (DME) pen needle, diabetic [BD Ultra-Fine Short Pen Needle] 31 gauge x 5/16" needle See Rx Instructions .Route Qty: 200 3RF Rx Instructions: Use with insulin pen twice daily Dx:E11.9 atorvastatin 40 mg tablet 40 mg PO QAM Qty: 90 1RF omeprazole 20 mg capsule,delayed release(DR/EC) 20 mg PO QAM Qty: 90 3RF potassium chloride 20 mEq tablet extended release 20 meq PO QAM Qty: 90 3RF insulin glargine [Basaglar KwikPen U-100 Insulin] 100 unit/mL (3 mL) insulin pen 40 unit subcut BID Qty: 45 3RF Rx Instructions: INJECT 40 UNITS DAILY OR DIRECTED. (DME) FreeStyle Shlomo 2 Sensor Kit See Rx Instructions .ROUTE .COMPLEX Qty: 2 5RF Dose Instruction: DIRECTED TO CHECK BLOOD SUGARS CONTINUOUSLY (REPLACE EVERY 14 DAYS) Rx Instructions: DIRECTED TO CHECK BLOOD SUGARS CONTINUOUSLY (REPLACE EVERY 14 DAYS) (DME) Oxygen Home Liters Per Minute See Rx Instructions .Route Qty: 1 0RF Rx Instructions: As directed metoprolol succinate 50 mg tablet extended release 24 hr 50 mg PO QAM Rx Instructions: These instructions verbalized by patient. This was last filled, according to January, for 90 day supply. Ozempic 0.25 mg or 0.5 mg(2 mg/1.5 mL) pen injector 0.5 mg subcut WK Qty: 1.5 2RF Rx Instructions: Takes wed torsemide 100 mg tablet 100 mg PO QAM aspirin [[place] Low Dose Aspirin] 81 mg Tablet,Delayed Release (Dr/Ec) 162 mg PO QAM spironolactone 50 mg tablet 50 mg PO DAILY Rx Instructions: TAKES QAM AND 1300. lorazepam 0.5 mg tablet 0.5 mg sublingual Q6H PRN (Reason: Anxiety) albuterol sulfate 90 mcg/actuation HFA aerosol inhaler 2 puff INHALATION Q4H PRN (Reason: Shortness Of Breath Or Wheezing) Jardiance 10 mg tablet 10 mg PO QAM Qty: 30 0RF Discharge Orders: Discharge Order (Routine); Ordered 11/16/22 Ordered By: Vernon Lombardo/Other Patient Handouts: Managing Type 2 Diabetes, Vomit Diarrhea Nons pecific Adult Admission Data Admit Date/Time: 11/14/22 11:37 Attending Provider: Vernon Kennedy Admit Provider: Damian Martins Primary Care Provider: Melissa Frazier Other Providers: Damian Martins ; Kael Landis ; Juvenal Billings ; Eleanor Gastelum Thomas J ; Ann Marie Payne ; Stanley Summers ; Atilio Valle ; Russell Craven Andrew J. ; Atilio Mcnamara ; Patrick Krishnamurthy ; Rahul Miller ; Cassius Bright ; Kodi Day ; Ann Marie Sylvester ; Antoni Jackman ; Baljinder Reese ; Ele Peterson ; Devonte Lane ; Paul Mcconnell ; Rashmi Rice ; Gurvinder Kang ; Ruth Moreau Other Interventions: Discharge Summary Assessment (RN) Last Done: 11/16/22 12:38 Coding Level of Care Code HOSP INP/OBS DISCH >30 MIN Diagnoses Acute on chronic respiratory failure with hypoxemia J96.21 Sepsis syndrome Nausea and vomiting R11.2 Acute kidney injury superimposed on chronic kidney disease N17.9; N18.9 Testicular nodule N50.89 Hypertension I10 Hypertension type: essential hypertension Hyperlipidemia E78.5 Hyperlipidemia type: unspecified Obstructive sleep apnea G47.33 Type 2 diabetes mellitus E11.9 Restrictive lung disease secondary to obesity J98.4; E66.9 Chronic diastolic heart failure I50.32 Time Spent (min) 35
== END 2022-11-16 13:40 | disposition home or self-care (01) | DRG 871 ==
LOC: ED 08:26 → EDINP 11:37 → SUATTDRO 11:37 → 1E 14:36 → 2S 11-15 18:31

== ENCOUNTER 2023-02-10 19:06 | Inpatient (IN) ==
[2023-02-10] MEDS ORDERED: ONDANSETRON INJ 2 MG/ML 2 ML VIAL IV STA ×2 (19:20→20:15)
[2023-02-10] MEDS ORDERED: MoRPHine SULFATE 10 MG/ML CARP/VIAL IV STA (19:20)
--- NOTE | 2023-02-10 19:26 | Emergency Department Note ---
Impression & Plan Substernal chest pain, Acute pain of right shoulder, Abdominal pain, acute, epigastric ED Provider Note Name: JORDAN VILLANUEVA Age: 77 Sex: M Arrives Via: Ambulance Informant: Patient ED Provider: Elian Mann MD Chief Complaint: Chest pain Impression: As per impressions above Medical Decision Makin-year-old male arrives for evaluation of substernal chest pain. Patient has been dealing with right shoulder pain for the last day and then developed substernal chest pain while at the clinic today. Patient was given aspirin and nitro with improvement in his chest pain. He arrives in severe pain from his right shoulder though. On examination there is really no acute finding is full range of motion and other than some tenderness palpation over the right anterior shoulder no significant findings. He has good pulses he is not short of breath is not tachycardic and his oxygen is good. Patient is given a small dose of morphine and developed significant nausea and vomiting. He then started complaining of severe epigastric pain. CT of the abdomen pelvis is done and is unremarkable. Chest x-ray is unremarkable x-rays of the shoulder show some arthritis. Laboratory work-up is essentially benign as well. There is no evidence of ACS on initial troponin or EKG. Patient has now chest pain free. COVID is negative. I do not have a clear cause of his chest pain and seems possible this may just be some esophagitis though with his history clearly will need a cardiac rule out. As for the shoulder it does not appear infected and I do not see any clear etiology of the pain he is having. Patient will be brought in for further evaluation and monitoring. Prior Medical Record and Triage/Nursing Notes reviewed by Me External chart reviewed by me including recent PCP evaluations Differentials:Arthritis, septic joint, musculoskeletal, esophagitis, dissection, PE, ACS, pneumonia, pneumothorax, gastritis, obstruction, pancreat itis amongst other pathologies considered Vital Signs: reviewed and remarkable for no significant abnormalities Interventions: Morphine IV, Zofran IV x2, normal saline bolus Labs:Reviewed and remarkable for no significant abnormalities Imaging:Chest x-ray and right shoulder x-rays negative per radiologist. CT of the abdomen pelvis as per my informal interpretation no evidence of obstruction free air or free fluid throughout the abdomen. Radiologist confirms. EKG:As per my interpretation. Indication chest pain. Normal sinus rhythm at 85 bpm with a right bundle branch block no ectopy nor ischemia. QTc is 430. When compared to a EKG of October 16, 2022 there is no significant change. Cardiac/Tele Monitoring: Cardiac Monitoring: An Order was placed for continuous cardiac monitoring. The monitor shows a rate of 80 with a normal sinus rhythm. Consults:Dr Clark MOYA Hospitalist Plan: Disposition:Hospitalization. Condition: Good History of Present Illness:77-year-old gentleman arrives for evaluation of chest pain. Patient notes he woke this morning with right anterior shoulder pain worse with movement and palpation better with rest. He is being seen at the [facility] this afternoon when he developed sudden onset substernal chest pressure. He was given aspirin 324 mg p.o. and sublingual nitro and sent to the ER for evaluation. Patient was also given IM fentanyl for shoulder pain with mild improvement. He notes some anterior right shoulder pain but denies any current chest pain. Denies any recent chest pains until today. No symptoms on exertion. He notes he has a history of restrictive cardiomyopathy with almost a 30 pound weight loss over the last few months and improvement in his leg swelling. Denies any falls, trauma, injuries. Is not had any recent fevers, chills, headache, rashes, abdominal pain, back pain or other concerning signs or symptoms. Denies a history of known CAD and had a previous cath several years ago. Patient was treated about a month ago for gout he does not recall which medicine he did on. Past History:RAMAN, hyperlipidemia, CKD, hypertension, depression, obesity, type 2 diabetes, GERD, gout Home Medications:See Below Allergies:IV dye, adhesive tape Vitals:Blood Pressure: 136/71, Pulse 84, RR 12, O2 95% on RA Physical Exam: GENERAL: Patient is mildly uncomfortable appearing and in moderate distress. EYES: No scleral icterus, unremarkable pupils. ENT: Mucous membranes moist, no nasal congestion. NECK: No masses appreciated, nomeningismus, trachea is midline. RESPIRATORY: No dyspnea. Clear to auscultation and equal bilaterally. No wheeze, no rhonchi. CARDIOVASCULAR: Regular rate and rhythm.No murmurs, rubs, gallops appreciated. GASTROINTESTINAL: Abdomen soft, non-tender, no peritonitis. EXTREMITIES: Tenderness palpation over the anterior right shoulder. He has full range of motion of the right shoulder without significant pain. No rash or swelling appreciated. Mild edema lower legs. Otherwise normal motion all extremities, no cyanosis, no edema. NEUROLOGIC: Alert and oriented, no acute motor or sensory deficits, no focal weakness, cranial nerves grossly intact. SKIN: No rash, no jaundice, no diaphoresis. PSYCH: Appropriate GCS: 15 ED Course: Times/Reassessments: Patient did have a fair amount of nausea vomiting after morphine but rapidly improved and was stable. Still with some anterior shoulder pain but much more comfortable and no further need of pain medication. Elian Mann MD Past Med/Surg History Medical History Acute heart failure with preserved ejection fraction (HFpEF) Anxiety and depression BPH (benign prostatic hyperplasia) Chronic diastolic heart failure, NYHA class 3 Degenerative disc disease Diabetes mellitus type 2, insulin dependent GERD (gastroesophageal reflux disease) H/O deep venous thrombosis Hyperlipidemia Hypertension Hypoxia Morbid obesity Nonobstructive atherosclerosis of coronary artery Osteoarthritis Pressure ulcer of right ankle, stage 2 Pulmonary emphysema Restrictive cardiomyopathy Restrictive lung disease secondary to obesity Right knee pain Septic arthritis (01/24/14) Sleep apnea Surgical History Difficult intubation History of arthroscopy History of cardiac cath History of cataract surgery History of colonoscopy History of esophagogastroduodenoscopy (EGD) History of herniorrhaphy History of open reduction and internal fixation (ORIF) procedure History of tooth extraction History of total knee replacement Hx of transurethral resection of prostate S/P cholecystectomy Status post total hip replacement, left Family History Mother Stroke Alzheimer disease Father MVA (motor vehicle accident) Sister Breast cancer Daughter Brain tumor Denies family history of Ovarian cancer Prostate cancer Myocardial infarction Colorectal cancer Social History Smoking Status: Never smoker Tobacco Type: Cigarettes Age Started Using Tobacco: 18; Cigarettes Per Day: HX OF 1-2 PPD X 10 YEARS, QUIT IN 1974; Second Hand Exposure: No; Do You Dip or Chew Tobacco: No; Hx Alcohol Use: No Hx Substance Use: No Preferred Language: Turkish Communication Ability: Effective Visual Impairment: No Limitations Hearing Ability: Normal Supervisor Insulation Required: No Beliefs That Will Affect Care: None marital status: Current Living Situation: Spouse current occupational status: retired 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[employer], 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, 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 How many Children do You have: 2 Feels Safe at Home: Yes Childhood Exposure to Second-Hand Smoke: No Diet: regular Diet Comment: regular Dental Care, Regularly: Yes Physical Activity Frequency: Does not Exercise Seatbelt Use: always Sunscreen Use: No Assistive Devices: BiPap and Cane Allergies Allergies Allergy/AdvReac Type Severity Reaction Status Date / Time adhesive tape Allergy Mild Redness of Verified 02/10/23 20:23 Skin Iodinated Contrast Media AdvReac Intermediate Gastrointestinal Verified 02/10/23 20:23 Upset Iodine Solution SOLN AdvReac Unknown Unknown Uncoded 02/10/23 20:23 Home Meds Home Medications Medication Instructions Recorded Confirmed aspirin 81 mg tablet,delayed 162 mg PO QAM 01/16/21 02/10/23 release (Kelton Low Dose Aspirin) spironolactone 50 mg tablet 50 mg PO BID 08/26/21 02/10/23 albuterol sulfate 90 mcg/actuation 2 puff inhalation Q4H PRN 12/26/21 02/10/23 aerosol inhaler Shortness Of Breath Or Wheezing lorazepam 0.5 mg tablet 0.5 mg sublingual Q6H PRN Anxiety 12/26/21 02/10/23 torsemide 100 mg tablet 100 mg PO QAM 02/11/22 02/10/23 fluoxetine 20 mg capsule 40 mg PO QAM 01/06/23 02/10/23 metoprolol succinate 50 mg See Rx Instructions .Route .COMPLEX 01/06/23 02/10/23 tablet,extended release 24 hr Previous Rx's Medication Instructions Recorded empagliflozin 10 mg tablet 10 mg PO QAM #30 tabs 01/22/22 (Jardiance) cholecalciferol (vitamin D3) 50 50 mcg PO BID #180 caps 05/09/22 mcg (2,000 unit) capsule cyanocobalamin (vitamin B-12) 2,500 mcg PO DAILY 90 days #90 tabs 05/25/22 2,500 mcg tablet Oxygen Home #1 ea 05/31/22 flash glucose scanning reader #1 ea 06/02/22 (FreeStyle Shlomo 2 [place]) pen needle, diabetic 31 gauge x #200 ea 06/13/22 5/16" (BD Ultra-Fine Short Pen Needle) omeprazole 20 mg capsule,delayed 20 mg PO QAM #90 caps 09/16/22 release potassium chloride 20 mEq 20 meq PO QAM #90 tabs 09/16/22 tablet,extended release insulin glargine 100 unit/mL (3 40 unit (0.4 mL) subcut BID #45 mL 09/20/22 mL) subcutaneous pen (Basaglar KwikPen U-100 Insulin) flash glucose sensor (FreeStyle #2 KITS 11/01/22 Slhomo 2 Sensor kit) semaglutide 1 mg/dose (4 mg/3 mL) 1 mg (0.75 mL) subcut WK #3 mL 12/20/22 subcutaneous pen injector atorvastatin 40 mg tablet 40 mg PO QAM #90 tabs 01/26/23 Results & Data (ED) Vital Signs Vital Signs - 24 hr 02/10/23 19:11 02/10/23 19:22 02/10/23 19:21 Pulse Rate 86 Pulse Rate [Apical] 84 Respiratory Rate 16 12 Respiratory Effort / Characteristics Non-Labored Respiratory Depth Normal Blood Pressure [Left Arm] Blood Pressure Mean [Left Arm] Pulse Oximetry 95 Oxygen Delivery Method Room Air Sepsis Recent Fever Within 48 Hours No Sepsis New/Unexplained Change in Mental Status N/A Sepsis Action Taken by Nursing No Action Required 02/10/23 19:49 02/10/23 20:00 02/10/23 22:32 Pulse Rate Pulse Rate [Apical] 81 82 Respiratory Rate 20 20 Respiratory Effort / Characteristics Non-Labored Non-Labored Respiratory Depth Normal Normal Blood Pressure [Left Arm] 139/58 L 115/70 112/61 Blood Pressure Mean [Left Arm] 85 85 78 Pulse Oximetry 96 95 Oxygen Delivery Method Room Air Room Air Sepsis Recent Fever Within 48 Hours Sepsis New/Unexplained Change in Mental Status Sepsis Action Taken by Nursing 02/10/23 23:10 Pulse Rate 84 Pulse Rate [Apical] Respiratory Rate Respiratory Effort / Characteristics Respiratory Depth Blood Pressure [Left Arm] Blood Pressure Mean [Left Arm] Pulse Oximetry Oxygen Delivery Method Sepsis Recent Fever Within 48 Hours Sepsis New/Unexplained Change in Mental Status Sepsis Action Taken by Nursing Laboratory Data 02/10/23 19:29 02/10/23 19:29 Lab Results 02/10/23 02/10/23 02/10/23 Range/Units 19:29 19:29 19:29 WBC 13.25 H (4.8-10.8) K/ul RBC 5.20 (4.70-6.10) M/uL Hgb 13.7 L (14.0-18.0) g/dl Hct 44.0 (42.0-52.0) % MCV 84.6 (80.0-100.0) fL MCH 26.3 (25.0-34.0) pg MCHC 31.1 L (32.0-36.0) g/dL RDW Std Deviation 52.2 H (36.4-46.3) fL RDW Coeff of Kartik 17.3 H (11.5-14.5) % Plt Count 309 (130-400) K/uL MPV 10.4 (9.4-12.4) fL Immature Gran % (Auto) 0.4 % Neut % (Auto) 62.5 % Lymph % (Auto) 21.0 % Lake % (Auto) 11.7 % Eos % (Auto) 3.9 % Baso % (Auto) 0.5 % Neut # (Auto) 8.28 H (1.40-6.50) K/uL Lymph # (Auto) 2.78 (1.2-3.4) K/uL Lake # (Auto) 1.55 H (0.11-0.59) K/uL Eos # (Auto) 0.52 H (0-0.50) K/uL Baso # (Auto) 0.07 (0-0.2) K/uL Immature Gran # (Auto) 0.05 (0.01-0.20) K/uL Sodium 137 (136-145) mmol/L Potassium 4.3 (3.5-5.1) mmol/L Chloride 101 (98-107) mmol/L Carbon Dioxide 30 (21-32) mmol/L Anion Gap 6 (3-11) BUN 15 (6-23) mg/dl Creatinine 1.34 (0.6-1.4) mg/dl Est Cr Clr Drug Dosing 67.7 ml/min Est GFR ( Amer) 59.6 ml/min Est GFR (Non-Af Amer) 51.5 ml/min BUN/Creatinine Ratio 11.2 (10-20) Glucose 94 (70-99(Fasting)) mg/dl Calcium 10.4 H (8.6-10.3) mg/dl Magnesium 2.3 (1.7-2.4) mg/dl Total Bilirubin 0.4 (0.2-1.0) mg/dl Direct Bilirubin TNP AST 16 (13-39) U/L ALT 12 (7-52) U/L Alkaline Phosphatase 98 (34-104) U/L Troponin I High Sens 6.2 (0-20) pg/ml B-Natriuretic Peptide 31 (0-100) pg/ml Total Protein 7.6 (6.0-8.3) gm/dl Albumin 4.0 (3.4-5.0) gm/dl Lipase 64 (11-82) U/L SARS-CoV-2 (PCR) (Negative) Influenza Type A (PCR) (Neg) Influenza Type B (PCR) (Neg) RSV (RT-PCR) (Neg) 02/10/23 Range/Units 19:30 WBC (4.8-10.8) K/ul RBC (4.70-6.10) M/uL Hgb (14.0-18.0) g/dl Hct (42.0-52.0) % MCV (80.0-100.0) fL MCH (25.0-34.0) pg MCHC (32.0-36.0) g/dL RDW Std Deviation (36.4-46.3) fL RDW Coeff of Kartik (11.5-14.5) % Plt Count (130-400) K/uL MPV (9.4-12.4) fL Immature Gran % (Auto) % Neut % (Auto) % Lymph % (Auto) % Lake % (Auto) % Eos % (Auto) % Baso % (Auto) % Neut # (Auto) (1.40-6.50) K/uL Lymph # (Auto) (1.2-3.4) K/uL Lake # (Auto) (0.11-0.59) K/uL Eos # (Auto) (0-0.50) K/uL Baso # (Auto) (0-0.2) K/uL Immature Gran # (Auto) (0.01-0.20) K/uL Sodium (136-145) mmol/L Potassium (3.5-5.1) mmol/L Chloride (98-107) mmol/L Carbon Dioxide (21-32) mmol/L Anion Gap (3-11) BUN (6-23) mg/dl Creatinine (0.6-1.4) mg/dl Est Cr Clr Drug Dosing ml/min Est GFR ( Amer) ml/min Est GFR (Non-Af Amer) ml/min BUN/Creatinine Ratio (10-20) Glucose (70-99(Fasting)) mg/dl Calcium (8.6-10.3) mg/dl Magnesium (1.7-2.4) mg/dl Total Bilirubin (0.2-1.0) mg/dl Direct Bilirubin AST (13-39) U/L ALT (7-52) U/L Alkaline Phosphatase (34-104) U/L Troponin I High Sens (0-20) pg/ml B-Natriuretic Peptide (0-100) pg/ml Total Protein (6.0-8.3) gm/dl Albumin (3.4-5.0) gm/dl Lipase (11-82) U/L SARS-CoV-2 (PCR) NEGATIVE (Negative) Influenza Type A (PCR) Negative (Neg) Influenza Type B (PCR) Negative (Neg) RSV (RT-PCR) Negative (Neg) Administered Medications Discontinued Medications Fentanyl Citrate (Fentanyl Citrate Pf 100 Mcg/2 Ml Vial) 50 mcg IV NOW STA Stop: 02/10/23 22:23 Last Admin: 02/10/23 22:32 Dose: 50 mcg Documented By: ES Morphine Sulfate (Morphine Sulfate 10 Mg/Ml Carp/Vial) 6 mg IV NOW STA Stop: 02/10/23 19:21 Last Admin: 02/10/23 19:47 Dose: 6 mg Documented By: ES Ondansetron HCl (Ondansetron Inj 2 Mg/Ml 2 Ml Vial) 4 mg IV NOW STA Stop: 02/10/23 19:21 Last Admin: 02/10/23 19:47 Dose: 4 mg Documented By: ES Ondansetron HCl (Ondansetron Inj 2 Mg/Ml 2 Ml Vial) 4 mg IV NOW STA Stop: 02/10/23 20:16 Last Admin: 02/10/23 20:26 Dose: 4 mg Documented By: ES Imaging Data Radiologist's Impression: Shoulder X-Ray 02/10/23 19:20 XR shoulder RT min 2V routine CLINICAL HISTORY: Anterior right shoulder pain. COMPARISON: Right shoulder radiographs January 23, 2014. MRI of the right shoulder January 24, 2014. FINDINGS: Alignment of the right shoulder is anatomic. There is no acute fracture. There is no suspicious osseous lesion. Moderate degenerative changes within the right shoulder noted. These are most pronounced within the AC joint. IMPRESSION: 1. No acute fracture or dislocation within the right shoulder. 2. Moderate right shoulder degenerative changes. ACT 112: Negative or not required by law. Electronically signed by: Sha Fuentes M.D. 02/10/2023 8:07 PM Chest X-Ray 02/10/23 19:21 XR chest 1V portable CLINICAL HISTORY: Atypical chest pain. COMPARISON STUDY: Chest radiograph November 14, 2022. Chest CT September 20, 2019. FINDINGS: Lung volumes are normal. Lungs are clear. There is no pneumothorax or pleural effusion. Mild cardiomegaly is unchanged. Mediastinal contours are normal. There is no evidence for pulmonary edema. IMPRESSION: No acute cardiopulmonary findings. No change in appearance of the chest. ACT 112: Negative or not required by law. Electronically signed by: Sha Fuentes M.D. 02/10/2023 8:00 PM Abdomen/Pelvis CT 02/10/23 21:01 Exam(s): CT ABDOMEN + PELVIS Without Contrast EXAM: CT Abdomen and Pelvis Without Intravenous Contrast CLINICAL HISTORY: Reason for exam: upper abdominal pain. TECHNIQUE: Axial computed tomography images of the abdomen and pelvis without intravenous contrast. Automated exposure control was utilized for the study. A dose lowering technique was utilized adhering to the principles of ALARA. COMPARISON: November 14, 2022 FINDINGS: Lung bases: Unremarkable. No mass. No consolidation. ABDOMEN: Liver: Unremarkable. Gallbladder and bile ducts: Previous cholecystectomy. No biliary duct dilation or choledocholithiasis is seen. Pancreas: Unremarkable. No ductal dilation. Spleen: Unremarkable. No splenomegaly. Adrenals: Unremarkable. No mass. Kidneys and ureters: No hydronephrosis or ureterolithiasis is seen involving either kidney. Incidental note is made of bilateral simple renal cysts measuring 2.5 cm on the right and 1.1 cm on the left, similar to previous. No follow-up is required. Stomach and bowel: Unremarkable. No obstruction. No mucosal thickening. PELVIS: Appendix: The appendix is normal. Bowel loops are nondilated. No acute inflammatory changes are seen involving the bowel. Bladder: Unremarkable. No stones. Reproductive: Unremarkable as visualized. ABDOMEN and PELVIS: Intraperitoneal space: Unremarkable. No free air. No significant fluid collection. Bones/joints: Artifact from bilateral hip arthroplasties. No periprosthetic fracture or dislocation is seen. Mild degenerative changes in the spine. No acute fracture or subluxation. Soft tissues: Previous mesh hernia repair at the umbilicus. No recurrence or acute inflammation. Vasculature: Unremarkable. No abdominal aortic aneurysm. Lymph nodes: Unremarkable. No enlarged lymph nodes. IMPRESSION: 1. Previous cholecystectomy. No biliary duct dilation or choledocholithiasis is seen. 2. The appendix is normal. Bowel loops are nondilated. No acute inflammatory changes are seen involving the bowel. No acute process is seen within the abdomen or pelvis. 3. No hydronephrosis or ureterolithiasis is seen. Electronically signed by: Gian Restrepo MD 02/10/23 23:04 PM Discharge Plan Visit Data Chief Complaint: Shoulder Pain Stated Complaint: SHOULDER PAIN ED Provider: Elian Mann Discharge Problem: Substernal chest pain, Acute pain of right shoulder, Abdominal pain, acute, epigastric Forms Stand Alone Forms: [facility] [employer] Prescriptions Prescriptions: No Action cholecalciferol (vitamin D3) 50 mcg (2,000 unit) capsule 50 mcg PO BID Qty: 180 1RF cyanocobalamin (vitamin B-12) 2,500 mcg tablet 2,500 mcg PO DAILY 90 Days Qty: 90 1RF (DME) FreeStyle Shlomo 2 [place] [facility] [place], [place] See Rx Instructions .Route Qty: 1 0RF Rx Instructions: As directed to check blood sugar (scan at least every 8 hours) (DME) pen needle, diabetic [BD Ultra-Fine Short Pen Needle] 31 gauge x 5/16" needle See Rx Instructions .Route Qty: 200 3RF Rx Instructions: Use with insulin pen twice daily Dx:E11.9 omeprazole 20 mg capsule,delayed release(DR/EC) 20 mg PO QAM Qty: 90 3RF potassium chloride 20 mEq tablet extended release 20 meq PO QAM Qty: 90 3RF insulin glargine [Basaglar KwikPen U-100 Insulin] 100 unit/mL (3 mL) insulin pen 40 unit subcut BID Qty: 45 3RF Rx Instructions: ON HOLD PER PT "MAKE BSG GO TOO LOW, STOPPED TAKING FOR NOW". INJECT 40 UNITS DAILY OR DIRECTED. (DME) FreeStyle Shlomo 2 Sensor Kit See Rx Instructions .ROUTE .COMPLEX Qty: 2 5RF Dose Instruction: DIRECTED TO CHECK BLOOD SUGARS CONTINUOUSLY (REPLACE EVERY 14 DAYS) Rx Instructions: DIRECTED TO CHECK BLOOD SUGARS CONTINUOUSLY (REPLACE EVERY 14 DAYS) atorvastatin 40 mg tablet 40 mg PO QAM Qty: 90 1RF (DME) Oxygen Home Liters Per Minute See Rx Instructions .Route Qty: 1 0RF Rx Instructions: As directed fluoxetine 20 mg capsule 40 mg PO QAM Rx Instructions: TAKES 2 TABLETS DAILY metoprolol succinate 50 mg tablet extended release 24 hr See Rx Instructions .ROUTE .COMPLEX Rx Instructions: PER EXT MED HX--TAKES 75 MG QAM, THEN 50 MG QPM. Ozempic 1 mg/dose (4 mg/3 mL) pen injector 1 mg subcut WK Qty: 3 1RF Rx Instructions: Takes wed torsemide 100 mg tablet 100 mg PO QAM aspirin [Kelton Low Dose Aspirin] 81 mg Tablet,Delayed Release (Dr/Ec) 162 mg PO QAM spironolactone 50 mg tablet 50 mg PO BID Rx Instructions: TAKES QAM AND 1300. lorazepam 0.5 mg tablet 0.5 mg sublingual Q6H PRN (Reason: Anxiety) albuterol sulfate 90 mcg/actuation HFA aerosol inhaler 2 puff INHALATION Q4H PRN (Reason: Shortness Of Breath Or Wheezing) Jardiance 10 mg tablet 10 mg PO QAM Qty: 30 0RF Referrals Referrals: Melissa Frazier MD [Primary Care Provider] -
--- NOTE | 2023-02-10 20:02 | XRay Report ---
XR chest 1V portable CLINICAL HISTORY: Atypical chest pain. COMPARISON STUDY: Chest radiograph November 14, 2022. Chest CT September 20, 2019. FINDINGS: Lung volumes are normal. Lungs are clear. There is no pneumothorax or pleural effusion. Mil d cardiomegaly is unchanged. Mediastinal contours are normal. There is no evidence for pulmonary zoran a. IMPRESSION: No acute cardiopulmonary findings. No change in appearance of the chest. ACT 112: Negative or not required by law. Electronically signed by: Sha Fuentes M.D. 02/10/2023 8:00 PM
[2023-02-10 20:08] LABS: Basophils # (auto) 0.07 K/uL (0-0.2); Basophils % (auto) 0.5 %; Eosinophils # (auto) 0.52 K/uL (0-0.50); Eosinophils % (auto) 3.9 %; Hemoglobin 13.7 g/dl (14.0-18.0); Immature Granulocytes # (auto) 0.05 K/uL (0.01-0.20); Immature Granulocytes % (auto) 0.4 %; Lymphocytes # (auto) 2.78 K/uL (1.2-3.4); Mean Corpuscular Hemoglobin 26.3 pg (25.0-34.0); Mean Corpuscular Hgb Conc 31.1 g/dL (32.0-36.0); Mean Corpuscular Volume 84.6 fL (80.0-100.0); Mean Platelet Volume 10.4 fL (9.4-12.4); Monocytes # (auto) 1.55 K/uL (0.11-0.59); Monocytes % (auto) 11.7 %; Neutrophils # (auto) 8.28 K/uL (1.40-6.50); Neutrophils % (auto) 62.5 %; Platelet Count 309 K/uL (130-400); RDW Coefficient of Variation 17.3 % (11.5-14.5); RDW Standard Deviation 52.2 fL (36.4-46.3); White Blood Count 13.25 K/ul (4.8-10.8)
--- NOTE | 2023-02-10 20:09 | XRay Report ---
XR shoulder RT min 2V routine CLINICAL HISTORY: Anterior right shoulder pain. COMPARISON: Right shoulder radiographs January 23, 2014. MRI of the right shoulder January 24, 2014. FINDINGS: Alignment of the right shoulder is anatomic. There is no acute fracture. There is no suspi cious osseous lesion. Moderate degenerative changes within the right shoulder noted. These are most p ronounced within the AC joint. IMPRESSION: 1. No acute fracture or dislocation within the right shoulder. 2. Moderate right shoulder degenerative changes. ACT 112: Negative or not required by law. Electronically signed by: Sha Fuentes M.D. 02/10/2023 8:07 PM
[2023-02-10 20:23] LABS: Influenza A virus by PCR Negative (Neg); Influenza B virus by PCR Negative (Neg); RSV by PCR Negative (Neg); SARS CoV2 RNA(COVID-19) Ceph NEGATIVE (Negative)
[2023-02-10 21:35] LABS: Troponin I High Sensitivity 6.2 pg/ml (0-20)
[2023-02-10 21:41] LABS: Alanine Aminotransferase 12 U/L (7-52); Alkaline Phosphatase 98 U/L (34-104); Anion Gap 6 (3-11); Aspartate Aminotransferase 16 U/L (13-39); BUN Creatinine Ratio 11.2 (10-20); Bilirubin,Total 0.4 mg/dl (0.2-1.0); Blood Urea Nitrogen 15 mg/dl (6-23); Calcium 10.4 mg/dl (8.6-10.3); Carbon Dioxide 30 mmol/L (21-32); Chloride 101 mmol/L (98-107); Creatinine Clr Calc Pharmacy 67.7 ml/min; Est GFR (African American) 59.6 ml/min; Est GFR (Non-African American) 51.5 ml/min; Glucose 94 mg/dl (70-99(Fasting)); Lipase 64 U/L (11-82); Magnesium 2.3 mg/dl (1.7-2.4); Potassium 4.3 mmol/L (3.5-5.1); Sodium 137 mmol/L (136-145); Total Protein 7.6 gm/dl (6.0-8.3)
[2023-02-10] MEDS ORDERED: fentaNYL citrate PF 100 MCG/2 ML VIAL IV STA (22:22)
--- NOTE | 2023-02-10 23:05 | CT Scan Report ---
Exam(s): CT ABDOMEN + PELVIS Without Contrast EXAM: CT Abdomen and Pelvis Without Intravenous Contrast CLINICAL HISTORY: Reason for exam: upper abdominal pain. TECHNIQUE: Axial computed tomography images of the abdomen and pelvis without intravenous contrast. Automated exposure control was utilized for the study. A dose lowering technique was utilized adhering to the principles of ALARA. COMPARISON: November 14, 2022 FINDINGS: Lung bases: Unremarkable. No mass. No consolidation. ABDOMEN: Liver: Unremarkable. Gallbladder and bile ducts: Previous cholecystectomy. No biliary duct dilation or choledocholithiasis is seen. Pancreas: Unremarkable. No ductal dilation. Spleen: Unremarkable. No splenomegaly. Adrenals: Unremarkable. No mass. Kidneys and ureters: No hydronephrosis or ureterolithiasis is seen involving either kidney. Incidental note is made of bilateral simple renal cysts measuring 2.5 cm on the right and 1.1 cm on the left, similar to previous. No follow-up is required. Stomach and bowel: Unremarkable. No obstruction. No mucosal thickening. PELVIS: Appendix: The appendix is normal. Bowel loops are nondilated. No acute inflammatory changes are seen involving the bowel. Bladder: Unremarkable. No stones. Reproductive: Unremarkable as visualized. ABDOMEN and PELVIS: Intraperitoneal space: Unremarkable. No free air. No significant fluid collection. Bones/joints: Artifact from bilateral hip arthroplasties. No periprosthetic fracture or dislocation is seen. Mild degenerative changes in the spine. No acute fracture or subluxation. Soft tissues: Previous mesh hernia repair at the umbilicus. No recurrence or acute inflammation. Vasculature: Unremarkable. No abdominal aortic aneurysm. Lymph nodes: Unremarkable. No enlarged lymph nodes. IMPRESSION: 1. Previous cholecystectomy. No biliary duct dilation or choledocholithiasis is seen. 2. The appendix is normal. Bowel loops are nondilated. No acute inflammatory changes are seen involving the bowel. No acute process is seen within the abdomen or pelvis. 3. No hydronephrosis or ureterolithiasis is seen. Electronically signed by: Gian Restrepo MD 02/10/23 23:04 PM
--- NOTE | 2023-02-10 23:21 | History & Physical Report ---
Date of Service February 10, 2023 Assessment & Plan (1) Chest pain: Plan: -No further chest pain since ER arrival -Troponin negative x1, will obtain repeat -EKG w/o acute ST change -TTE ordered, last one done in 01/2022 EF 60-65% w/o WMA -Last catheterization 2018 w/o abnormality -Low suspicion for cardiac cause of chest pain, suspect more likely MSK -Telemetry monitoring (2) Shoulder pain, right: Plan: -Chronic issue with acute worsening now -Suspect likely osteoarthritic, lower suspicion for referred pain from cardiac cause -May be related to gout flare, will trial Toradol and Voltaren PRN -Uric acid pending (3) Restrictive cardiomyopathy: Plan: -Continue aspirin, statin, metoprolol (4) Chronic diastolic heart failure: Plan: -Currently euvolemic -Continue metoprolol, spironolactone, torsemide, Jardiance (5) Obesity hypoventilation syndrome: Plan: -BIPAP (6) GERD (gastroesophageal reflux disease): Plan: -Continue omeprazole (7) Depression: Plan: -Continue fluoxetine (8) Hypertension: Plan: -BP stable -Continue metoprolol -Pt not on any KRISTYN/ARB per chart review (9) Hyperlipidemia: Plan: -Continue atorvastatin (10) CKD (chronic kidney disease) stage 3, GFR 30-59 ml/min: Plan: -Cr 1.34, at baseline -Trend BMP (11) Type 2 diabetes mellitus: Plan: -A1C 6.6% in 11/2022 -Lantus, SSI (12) Leukocytosis: Plan: -Chronic -Low suspicion for active infection -Trend CBC Plan FENGI: Heart healthy, low sodium, DM2 Code status: Full DVT ppx: SCDs Isolation: None Dispo: Telemetry History of Present Illness Chief Complaint: R shoulder and chest pain Primary Care Provider: Melissa Frazier MD Pt is 77 yo M with PMH HFpEF, IDDM2, HLD, HTN, CKD3, morbid obesity, restrictive cardiomyopathy, osteoarthritis, anxiety/depression, GERD, sleep apnea Pt reports onset of R anterior shoulder pain this AM. Was seen in PCP clinic and experienced sudden onset substernal chest pain. Given aspirin and nitroglycerin, sent to ER for evaluation. Pt does note he's had shoulder pain for several weeks but no chest pain until today. Reports he did have catheterizations done in the past but was never diagnosed with CAD. He did have a recent ER visit for gout this month. Reports his anterior shoulder pain feels very similar to previous gout pains. Pt arrived to ER hemodynamically stable. Initial evaluation significant for WBC 13. Troponin negative. Pt given morphine, Zofran, fentanyl in ER. At present, pt reports continued R shoulder pain but no further chest pain. Allergies Allergy/AdvReac Type Severity Reaction Status Date / Time adhesive tape Allergy Mild Redness of Verified 02/10/23 20:23 Skin Iodinated Contrast Media AdvReac Intermediate Gastrointestinal Verified 02/10/23 20:23 Upset Iodine Solution SOLN AdvReac Unknown Unknown Uncoded 02/10/23 20:23 Home Medications Medication Instructions Recorded Confirmed Type aspirin 81 mg tablet,delayed 162 mg PO QAM 01/16/21 02/10/23 History release ([place] Low Dose Aspirin) spironolactone 50 mg tablet 50 mg PO BID 08/26/21 02/10/23 History albuterol sulfate 90 mcg/actuation 2 puff inhalation Q4H PRN 12/26/21 02/10/23 History aerosol inhaler Shortness Of Breath Or Wheezing lorazepam 0.5 mg tablet 0.5 mg sublingual Q6H PRN Anxiety 12/26/21 02/10/23 History empagliflozin 10 mg tablet 10 mg PO QAM #30 tabs 01/22/22 02/10/23 Rx (Jardiance) torsemide 100 mg tablet 100 mg PO QAM 02/11/22 02/10/23 History cholecalciferol (vitamin D3) 50 50 mcg PO BID #180 caps 05/09/22 02/10/23 Rx mcg (2,000 unit) capsule cyanocobalamin (vitamin B-12) 2,500 mcg PO DAILY 90 days #90 tabs 05/25/22 02/10/23 Rx 2,500 mcg tablet Oxygen Home #1 ea 05/31/22 01/06/23 Rx flash glucose scanning reader #1 ea 06/02/22 01/06/23 Rx (FreeStyle Shlomo 2 Loa) pen needle, diabetic 31 gauge x #200 ea 06/13/22 01/06/23 Rx 5/16" (BD Ultra-Fine Short Pen Needle) omeprazole 20 mg capsule,delayed 20 mg PO QAM #90 caps 09/16/22 02/10/23 Rx release potassium chloride 20 mEq 20 meq PO QAM #90 tabs 09/16/22 02/10/23 Rx tablet,extended release insulin glargine 100 unit/mL (3 40 unit (0.4 mL) subcut BID #45 mL 09/20/22 02/10/23 Rx mL) subcutaneous pen (Basaglar KwikPen U-100 Insulin) flash glucose sensor (FreeStyle #2 KITS 11/01/22 01/06/23 Rx Shlomo 2 Sensor kit) semaglutide 1 mg/dose (4 mg/3 mL) 1 mg (0.75 mL) subcut WK #3 mL 12/20/22 Rx subcutaneous pen injector fluoxetine 20 mg capsule 40 mg PO QAM 01/06/23 02/10/23 History metoprolol succinate 50 mg See Rx Instructions .Route .COMPLEX 01/06/23 02/10/23 History tablet,extended release 24 hr atorvastatin 40 mg tablet 40 mg PO QAM #90 tabs 01/26/23 02/10/23 Rx Past Med/Surg History Medical History Acute heart failure with preserved ejection fraction (HFpEF) Anxiety and depression BPH (benign prostatic hyperplasia) Chronic diastolic heart failure, NYHA class 3 Degenerative disc disease Diabetes mellitus type 2, insulin dependent GERD (gastroesophageal reflux disease) H/O deep venous thrombosis Hyperlipidemia Hypertension Hypoxia Morbid obesity Nonobstructive atherosclerosis of coronary artery Osteoarthritis Pressure ulcer of right ankle, stage 2 Pulmonary emphysema Restrictive cardiomyopathy Restrictive lung disease secondary to obesity Right knee pain Septic arthritis (01/24/14) Sleep apnea Surgical History Difficult intubation History of arthroscopy History of cardiac cath History of cataract surgery History of colonoscopy History of esophagogastroduodenoscopy (EGD) History of herniorrhaphy History of open reduction and internal fixation (ORIF) procedure History of tooth extraction History of total knee replacement Hx of transurethral resection of prostate S/P cholecystectomy Status post total hip replacement, left Family History Mother Stroke Alzheimer disease Father MVA (motor vehicle accident) Sister Breast cancer Daughter Brain tumor Denies family history of Ovarian cancer Prostate cancer Myocardial infarction Colorectal cancer Social History Smoking Status: Never smoker Tobacco Type: Cigarettes Age Started Using Tobacco: 18; Cigarettes Per Day: HX OF 1-2 PPD X 10 YEARS, QUIT IN 1974; Smoking End Date: 47 years ago; Second Hand Exposure: No; Do You Dip or Chew Tobacco: No; Hx Alcohol Use: No Hx Substance Use: No Preferred Language: Kinyarwanda Communication Ability: Effective Visual Impairment: No Limitations Hearing Ability: Normal Manager Specialty Required: No Beliefs That Will Affect Care: None marital status: Current Living Situation: Spouse current occupational status: retired 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[employer], 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, 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 How many Children do You have: 2 Other Information That Helps Us Care for You: No Feels Safe at Home: Yes Safety Concerns: Feels Safe At This Time Childhood Exposure to Second-Hand Smoke: No Diet: regular Diet Comment: regular Dental Care, Regularly: Yes Physical Activity Frequency: Does not Exercise Seatbelt Use: always Sunscreen Use: No Assistive Devices: Cane, Glasses and Oxygen - at Night Review of Systems Review of Systems: Per HPI/Subjective Physical Exam Physical Exam: General: well-appearing, no acute distress, obese HEENT: PERRL, EOMI, conjunctivae clear without injection, anicteric sclerae, moist mucous membranes, clear oropharynx without exudate or erythema Neck: supple, trachea midline, no thyromegaly, no JVD, no cervical lymphadenopathy CV: RRR, normal S1 and S2, no murmurs Resp: CTAB, no increased work of breathing, no crackles or wheezes Abd: Soft, nontender, nondistended, no guarding or rebound, no hepatosplenome jody MSK: Normal bulk of all four extremities, tender to palpation of R shoulder + full ROM Neuro: AOx3, no focal motor or sensory deficits Skin: no rashes or lesions, warm and dry Ext: trace LE peripheral edema without erythema, capillary refill <2s in all four extremities, 2+ LE peripheral pulses b/l Results & Data Results & Data Vital Signs (Past 12 Hours) Vital Signs Pulse Pulse Resp BP Pulse Ox O2 Del Method 02/10/23 22:32 82 20 112/61 95 Room Air 02/10/23 20:00 81 20 115/70 96 Room Air 02/10/23 19:49 139/58 L 02/10/23 19:21 86 02/10/23 19:22 84 12 95 Room Air 02/10/23 19:11 16 Supervising Physician Co-Signing Physician Notes Attending addendum: I have physically seen this patient, have supervised the medical residents activities, and agree with the H&P unless as otherwise noted. Assessment and Plan: Chest pain/restrictive cardiomyopathy/chronic diastolic heart failure- The patient will be admitted to telemetry for serial cardiac enzymes, serial EKG's, cardiac rhythm monitoring and a 2-D echocardiogram with Dopplers. Initial troponin negative History of normal cardiac catheterization in 2018 Continue aspirin, metoprolol tartrate, spironolactone, torsemide and Jardiance Right shoulder pain- Acute on chronic pain Trial of Toradol Hyperlipidemia- Continue atorvastatin 40 mg daily Check a fasting lipid panel GERD- Change omeprazole to pantoprazole Depression- Continue fluoxetine Remaining orders and notations as noted Resident Activity Tracking Resident Involvement: Resident Care Provided Care Provided: Adult Hospital Medicine (6) GERD (gastroesophageal reflux disease) Esophagitis presence: esophagitis presence not specified Qualified Code(s): K21.9 - Gastro-esophageal reflux disease without esophagitis (7) Depression Active/Remission status: currently active Depression Type: major depressive disorder Major depression episode severity: unspecified Major depression recurrence: recurrent Qualified Code(s): F33.9 - Major depressive disorder, recurrent, unspecified (8) Hypertension Hypertension type: essential hypertension Qualified Code(s): I10 - Essential (primary) hypertension (9) Hyperlipidemia Hyperlipidemia type: unspecified Qualified Code(s): E78.5 - Hyperlipidemia, unspecified (10) CKD (chronic kidney disease) stage 3, GFR 30-59 ml/min Chronic kidney disease stage 3 subtype: unspecified whether 3a or 3b Qualified Code(s): N18.30 - Chronic kidney disease, stage 3 unspecified
[2023-02-11] MEDS ORDERED: DEXTROSE 50% 50 ML SYRINGE IV PRN (02:23)
[2023-02-11] MEDS ORDERED: GLUCOSE 40% GEL 15 GM TUBE PO PRN (02:23)
[2023-02-11] MEDS ORDERED: GLUCAGON FOR INJ 1 MG VIAL SQ PRN (02:23)
[2023-02-11] MEDS ORDERED: DICLOFENAC SOD 1% GEL 100 GM TUBE EXT PRN (02:23)
[2023-02-11] MEDS ORDERED: NITROGLYCERIN SL 0.4 MG/TAB TAB SL PRN (02:23)
[2023-02-11] MEDS ORDERED: CARBOHYDRATES FOR HYPOGLYCEMIA PO PRN (02:23)
[2023-02-11] MEDS ORDERED: GLUCOSE 10 TAB/TUBE PO PRN (02:23)
[2023-02-11] MEDS ORDERED: ALBUTEROL HFA 8 GM INHALER INH PRN (02:23)
[2023-02-11] MEDS: KETOROLAC TROMETHAMINE 15 MG/ML VIAL IV PRN ×2 (02:54→09:16)
[2023-02-11 03:06] LABS: Hematocrit (blood only) 44.6 % (42.0-52.0); Hemoglobin 13.6 g/dl (14.0-18.0); Mean Corpuscular Hemoglobin 26.3 pg (25.0-34.0); Mean Corpuscular Hgb Conc 30.5 g/dL (32.0-36.0); Mean Corpuscular Volume 86.1 fL (80.0-100.0); Mean Platelet Volume 10.4 fL (9.4-12.4); Platelet Count 287 K/uL (130-400); RDW Coefficient of Variation 17.6 % (11.5-14.5); RDW Standard Deviation 53.3 fL (36.4-46.3); Red Blood Count 5.18 M/uL (4.70-6.10); White Blood Count 11.52 K/ul (4.8-10.8)
[2023-02-11 03:20] LABS: BUN Creatinine Ratio 11.3 (10-20); Creatinine Clr Calc Pharmacy 63.1 ml/min; Est GFR (African American) 55.6 ml/min; Potassium 3.9 mmol/L (3.5-5.1); Uric Acid 6.7 mg/dl (2.6-7.2)
--- NOTE | 2023-02-11 07:36 | Hospitalist Progress Note ---
Date of Service February 11, 2023 Assessment & Plan (1) Chest pain: Plan: acute self limited thought to be felt to originate from cardiac source -Troponin negative x2, -EKG w/o acute ST change -TTE ordered, last one done in 01/2022 EF 60-65% w/o WMA -Last catheterization 2018 w/o significant CAD, h/o restrictive Cardiomyopathy, HFpEF, on asa spironolactone torsemide jardiance and metoprolol -Low suspicion for cardiac cause of chest pain, pain is reproducible suspect to be shoulder related (2) Shoulder pain, right: Plan: -Chronic issue with acute worsening now CT scan of shoulder does not show any concern for internal derangement or infection but may be acute on chronic degeneration of shoulder Uric acid is normal reviewed 02/11 We will initiate multimodal pain control with topical lidocaine scheduled Tylenol and opiate with a sling to support and likely referred to outpatient orthopedic evaluation (3) Obesity hypoventilation syndrome: Plan: chronic and stable-BIPAP (4) GERD (gastroesophageal reflux disease): Plan: -Continue omeprazole (5) Depression: Plan: -chronic and stable Continue fluoxetine (6) Type 2 diabetes mellitus: Plan: -A1C 6.6% in 11/2022 -Lantus, SSI end organ damage with CKD3, chronic and stable Plan Code status: Full DVT ppx: SCDs Admission and Anticipated Discharge Date Admission Date: February 10, 2023 Subjective pt is still with significant right shoulder pain which seems to be musculoskeletal, this is on shoulder that has previously been repaired Physical Exam Physical Exam: Patient has tenderness over his shoulder at the AC joint supraspinatus. He has tenderness to AB duction with upward force cannot lift above 90 degrees. He has no tenderness to rotation with arm By his side. His symptom complex seems to be really remarkably related to shoulder rather than cardiogenic or even cholestatic related CT scan of his shoulder did not show any significant fluid collections to be concerned with an infected joint etc. Results & Data Results & Data Vital Signs (Past 12 Hours) Vital Signs Temp Pulse Pulse Resp BP Pulse Ox O2 Del Method 02/11/23 04:00 83 02/11/23 03:08 Nasal Cannula 02/11/23 02:37 98.1 F 89 18 148/82 H 96 Nasal Cannula 02/11/23 01:59 78 02/11/23 01:22 83 20 136/71 94 Nasal Cannula 02/10/23 23:10 84 02/10/23 22:32 82 20 112/61 95 Room Air 02/10/23 20:00 81 20 115/70 96 Room Air 02/10/23 19:49 139/58 L O2 Flow Rate 02/11/23 04:00 02/11/23 03:08 2 02/11/23 02:37 2 02/11/23 01:59 02/11/23 01:22 2 02/10/23 23:10 02/10/23 22:32 02/10/23 20:00 02/10/23 19:49 Laboratory Results Reviewed CBC Reviewed PRP PG Care Time/CCT Total # of Minutes Spent Total Time Spent with Patient: Total time spent is greater than 50% in coordination of care (as documented) at patient's floor/unit and/or counseling patient: Coding Level of Care Code 92515 SUB INP/OBS CARE 2/35MIN Diagnoses Chest pain R07.9 Shoulder pain, right M25.511 Obesity hypoventilation syndrome E66.2 GERD (gastroesophageal reflux disease) K21.9 Esophagitis presence: esophagitis presence not specified Depression F33.9 Active/Remission status: currently active Depression Type: major depressive disorder Major depression episode severity: unspecified Major depression recurrence: recurrent Type 2 diabetes mellitus E11.9 (4) GERD (gastroesophageal reflux disease) Esophagitis presence: esophagitis presence not specified Qualified Code(s): K21.9 - Gastro-esophageal reflux disease without esophagitis (5) Depression Active/Remission status: currently active Depression Type: major depressive disorder Major depression episode severity: unspecified Major depression recurrence: recurrent Qualified Code(s): F33.9 - Major depressive disorder, recurrent, unspecified
[2023-02-11] MEDS: LORazepam 0.5 MG TAB SL PRN ×2 (08:26→20:28)
[2023-02-11] MEDS: POTASSIUM CHLORIDE CRTAB 20 MEQ TABCR PO SCH (08:26)
[2023-02-11] MEDS: ATORVASTATIN 40 MG TAB PO SCH (08:28)
[2023-02-11] MEDS: FLUoxetine HCL 20 MG CAP PO SCH (08:29)
[2023-02-11] MEDS: PANTOprazole 40 MG TAB PO SCH (08:29)
[2023-02-11] MEDS: SPIRONOLACTONE 25 MG TAB PO SCH ×2 (08:29→14:21)
[2023-02-11] MEDS: TORSEMIDE 100 MG TAB PO SCH (08:29)
[2023-02-11] MEDS: EMPAGLIFLOZIN 10 MG TAB PO SCH (08:31)
[2023-02-11] MEDS: METOPROLOL SUCC 25MG EXT REL TAB PO SCH (08:32)
[2023-02-11] MEDS: ASPIRIN 81 MG ECTAB PO SCH (08:32)
[2023-02-11] MEDS: INSULIN ASPART PER UNIT CHARGE SC SCH ×4 (08:42→20:37)
[2023-02-11] MEDS: LANTUS PER UNIT CHARGE SQ SCH ×2 (09:17→20:38)
--- NOTE | 2023-02-11 09:34 | XCELERA ---
[id number] \\[id number]
[2023-02-11] MEDS ORDERED: MoRPHine SULFATE 2 MG/ML CARP IV PRN (10:43)
[2023-02-11] MEDS: LIDOCAINE 5% 1 PATCH TD SCH (11:53)
[2023-02-11] MEDS: MoRPHine SULFATE 4 MG/ML 1 ML CARP\\VIAL IV PRN ×2 (11:54→16:14)
--- NOTE | 2023-02-11 11:54 | CT Scan Report ---
CT SCAN OF THE RIGHT SHOULDER WITHOUT IV CONTRAST CLINICAL HISTORY: Right shoulder pain. Clinical concern for fluid collection. COMPARISON STUDY: Radiographs of the right shoulder dated 02/10/2023. TECHNIQUE: CT scan of the right shoulder is performed from the lower neck to the humeral shaft. Image s are reviewed in the axial, sagittal, and coronal planes. IV contrast was not administered for this examination. A dose lowering technique was utilized adhering to the principles of ALARA. CT DOSE: 911.80 mGy.cm FINDINGS: The skeletal structures are osteopenic. There is no evidence of fracture or dislocation. No lytic or blastic lesion is seen. Postoperative change is noted in the right humeral head. Degenerati ve change is seen in the right glenohumeral and acromioclavicular joints. There is no CT evidence of joint effusion. The overlying soft tissues are normal as visualized. No organized/drainable fluid col lection is identified. No soft tissue gas is seen. There is no right axillary lymphadenopathy. There is asymmetric atrophy of the supraspinatus muscle. The imaged right upper lobe lung parenchyma appear s clear. IMPRESSION: 1. Osteopenia with postoperative and degenerative change as above. No acute bony abnormality is ident ified. 2. There is no fluid collection identified as clinically queried. 3. Asymmetric atrophy of the supraspinatus muscle is likely secondary to chronic rotator cuff injury. ACT 112: Negative or not required by law. Electronically signed by: Don Toledo M.D. 02/11/2023 11:52 AM
[2023-02-11] MEDS: oxyCODONE HCL IR 5 MG TAB (IMMEDIATE RELEASE) PO PRN ×2 (14:20→20:27)
[2023-02-11] MEDS ORDERED: LORazepam 0.5 MG TAB PO PRN (17:03)
[2023-02-11] MEDS ORDERED: HYDROmorphone INJ 1 MG/ML SYRINGE IV PRN (17:03)
[2023-02-11] MEDS ORDERED: HYDROmorphone INJ 1 MG/ML SYRINGE IV STA (17:05)
[2023-02-11] MEDS ORDERED: ONDANSETRON INJ 2 MG/ML 2 ML VIAL IV PRN (17:05)
[2023-02-11] MEDS: CELECOXIB 100 MG CAP PO SCH (20:25)
[2023-02-11] MEDS: METOPROLOL SUCC 50MG EXT REL TAB PO SCH (20:28)
[2023-02-12] MEDS: HYDROmorphone INJ 0.5 MG/0.5 ML SYR IV PRN (00:16)
[2023-02-12] MEDS: oxyCODONE HCL IR 5 MG TAB (IMMEDIATE RELEASE) PO PRN ×3 (02:22→19:18)
[2023-02-12] MEDS: LORazepam 0.5 MG TAB SL PRN (02:29)
--- NOTE | 2023-02-12 06:15 | Billing Data ---
Date of Service February 12, 2023 Coding Level of Care Code 73755 INT INP/OBS CARE
[2023-02-12] MEDS: SPIRONOLACTONE 25 MG TAB PO SCH ×2 (08:26→12:22)
[2023-02-12] MEDS: METOPROLOL SUCC 25MG EXT REL TAB PO SCH (08:27)
[2023-02-12] MEDS: FLUoxetine HCL 20 MG CAP PO SCH (08:27)
[2023-02-12] MEDS: ASPIRIN 81 MG ECTAB PO SCH (08:29)
[2023-02-12] MEDS: TORSEMIDE 100 MG TAB PO SCH (08:29)
[2023-02-12] MEDS: ATORVASTATIN 40 MG TAB PO SCH (08:29)
[2023-02-12] MEDS: LIDOCAINE 5% 1 PATCH TD SCH (08:30)
[2023-02-12] MEDS: POTASSIUM CHLORIDE CRTAB 20 MEQ TABCR PO SCH (08:30)
[2023-02-12] MEDS: EMPAGLIFLOZIN 10 MG TAB PO SCH (08:30)
[2023-02-12] MEDS: PANTOprazole 40 MG TAB PO SCH (08:30)
[2023-02-12] MEDS: CELECOXIB 100 MG CAP PO SCH ×2 (08:31→20:01)
[2023-02-12] MEDS: INSULIN ASPART PER UNIT CHARGE SC SCH ×4 (08:38→21:05)
[2023-02-12] MEDS: LANTUS PER UNIT CHARGE SQ SCH ×2 (08:43→21:05)
[2023-02-12] MEDS: ACETAMINOPHEN 500 MG TAB PO PRN ×2 (09:22→18:40)
--- NOTE | 2023-02-12 13:30 | Hospitalist Progress Note ---
Date of Service February 12, 2023 Assessment & Plan (1) Chest pain: Plan: -No further chest pain since ER arrival -Troponin negative x1, will obtain repeat -EKG w/o acute ST change -TTE ordered, last one done in 01/2022 EF 60-65% w/o WMA -Last catheterization 2018 w/o abnormality - Cardiogenic sources of his chest pain feels to be ruled out by diagnostic testing and pain is mostly related to musculoskeletal changes of his shoulder (2) Shoulder pain, right: Plan: -Chronic issue with acute worsening now -Suspect likely osteoarthritic, lower suspicion for referred pain from cardiac cause -May be related to gout flare, will trial Toradol and Voltaren PRN -Uric acid is in the normal range (3) Type 2 diabetes mellitus: Plan: Chronic and stable-A1C 6.6% in 11/2022 typically home on semaglutide, Jardiance, glargine 40 twice daily -In the hospital be converted to basal bolus with Lantus, SSI (4) Restrictive cardiomyopathy: Plan: Chronic and stable-Continue aspirin, statin, metoprolol (5) Chronic diastolic heart failure: Plan: -Currently euvolemic chronic and stable -Continue metoprolol, spironolactone, torsemide, Jardiance (6) CKD (chronic kidney disease) stage 3, GFR 30-59 ml/min: Plan: Chronic and stable-Cr 1.34, at baseline -Trend BMP (7) Depression: Plan: Chronic and stable continue fluoxetine Plan Code status: Full DVT ppx: SCDs Admission and Anticipated Discharge Date Admission Date: February 10, 2023 Subjective Patient is bothered by a headache in the top of his head and both sides. This is not positional and is not throbbing is constant is not associated with any temporal tenderness or jaw claudication there is no visual changes. This sounds to be a tension headache Patient shoulder is improving but still painful will need outpatient follow-up with orthopedics Physical Exam Physical Exam: Patient's cranial nerves are examined to be intact does not have reproducible tenderness to his scalp nor his temples for his temporal pulses. He is alert and oriented and remainder of his neurological exam with exception of the strength exam to his right shoulder is intact given his pain in his right shoulder he cannot perform her appropriate examination patient has tenderness over his shoulder at the AC joint supraspinatus. He has tenderness to AB duction with upward force cannot lift above 90 degrees. He has no tenderness to rotation with arm By his side. His symptom complex seems to be really remarkably related to shoulder rather than cardiogenic or even cholestatic related CT scan of his shoulder did not show any significant fluid collections to be concerned with an infected joint etc. Results & Data Results & Data Vital Signs (Past 12 Hours) Vital Signs Temp Pulse Resp BP Pulse Ox O2 Del Method O2 Flow Rate 02/12/23 11:30 93 02/12/23 07:50 Room Air 2 02/12/23 08:25 77 121/79 02/12/23 08:07 97.7 F 79 20 121/78 96 Nasal Cannula 2 02/12/23 02:18 97 H 20 124/81 95 Nasal Cannula 2 PG Care Time/CCT Total # of Minutes Spent Total Time Spent with Patient: Total time spent is greater than 50% in coordination of care (as documented) at patient's floor/unit and/or counseling patient: Coding Level of Care Code 46167 SUB INP/OBS CARE 2/35MIN Diagnoses Chest pain R07.9 Shoulder pain, right M25.511 Type 2 diabetes mellitus E11.9 Restrictive cardiomyopathy I42.5 Chronic diastolic heart failure I50.32 CKD (chronic kidney disease) stage 3, GFR 30-59 ml/min N18.30 Chronic kidney disease stage 3 subtype: unspecified whether 3a or 3b Depression F33.9 Depression Type: major depressive disorder Major depression recurrence: recurrent Active/Remission status: currently active Major depression episode severity: unspecified (6) CKD (chronic kidney disease) stage 3, GFR 30-59 ml/min Chronic kidney disease stage 3 subtype: unspecified whether 3a or 3b Qualified Code(s): N18.30 - Chronic kidney disease, stage 3 unspecified (7) Depression Depression Type: major depressive disorder Major depression recurrence: recurrent Active/Remission status: currently active Major depression episode severity: unspecified Qualified Code(s): F33.9 - Major depressive disorder, recurrent, unspecified
[2023-02-12] MEDS: METOPROLOL SUCC 50MG EXT REL TAB PO SCH (20:06)
[2023-02-13] MEDS: oxyCODONE HCL IR 5 MG TAB (IMMEDIATE RELEASE) PO PRN (02:13)
[2023-02-13] MEDS: ACETAMINOPHEN 500 MG TAB PO PRN (04:23)
[2023-02-13] MEDS: PANTOprazole 40 MG TAB PO SCH (07:32)
[2023-02-13] MEDS: CELECOXIB 100 MG CAP PO SCH (07:32)
[2023-02-13] MEDS: EMPAGLIFLOZIN 10 MG TAB PO SCH (07:32)
[2023-02-13] MEDS: METOPROLOL SUCC 25MG EXT REL TAB PO SCH (07:32)
[2023-02-13] MEDS: SPIRONOLACTONE 25 MG TAB PO SCH ×2 (07:32→13:25)
[2023-02-13] MEDS: FLUoxetine HCL 20 MG CAP PO SCH (07:33)
[2023-02-13] MEDS: ASPIRIN 81 MG ECTAB PO SCH (07:33)
[2023-02-13] MEDS: ATORVASTATIN 40 MG TAB PO SCH (07:33)
[2023-02-13] MEDS: TORSEMIDE 100 MG TAB PO SCH (07:33)
[2023-02-13] MEDS: POTASSIUM CHLORIDE CRTAB 20 MEQ TABCR PO SCH (07:34)
[2023-02-13] MEDS: LIDOCAINE 5% 1 PATCH TD SCH (07:34)
[2023-02-13] MEDS: HYDROmorphone INJ 0.5 MG/0.5 ML SYR IV PRN (08:11)
[2023-02-13] MEDS: INSULIN ASPART PER UNIT CHARGE SC SCH ×2 (08:34→12:22)
[2023-02-13] MEDS: LANTUS PER UNIT CHARGE SQ SCH (08:37)
--- NOTE | 2023-02-13 08:39 | Electrocardiogram Report ---
Test Reason : Blood Pressure : / mmHG Vent. Rate : 085 BPM Atrial Rate : 085 BPM P-R Int : 182 ms QRS Dur : 126 ms QT Int : 362 ms P-R-T Axes : 025 -03 042 degrees QTc Int : 430 ms Normal sinus rhythm Right bundle branch block Abnormal ECG When compared with ECG of 14-NOV-2022 08:33, No significant change Confirmed by Tristan Israel ([id number]) on 02/13/2023 8:38:48 AM Referred By: REFERRED SELF Confirmed By:Tristan Israel
--- NOTE | 2023-02-13 08:49 | Electrocardiogram Report ---
Test Reason : Blood Pressure : / mmHG Vent. Rate : 075 BPM Atrial Rate : 075 BPM P-R Int : 188 ms QRS Dur : 130 ms QT Int : 404 ms P-R-T Axes : 056 014 058 degrees QTc Int : 451 ms Normal sinus rhythm Right bundle branch block Abnormal ECG When compared with ECG of 10-FEB-2023 19:16, (unconfirmed) Nonspecific T wave abnormality no longer evident in Anterior leads Confirmed by Tristan Israel ([id number]) on 02/13/2023 8:48:46 AM Referred By: REFERRED SELF Confirmed By:Tristan Israel
--- NOTE | 2023-02-13 16:33 | Discharge Summary ---
Date of Service February 13, 2023 Admission HPI Per Admitting Provider Pt is 77 yo M with PMH HFpEF, IDDM2, HLD, HTN, CKD3, morbid obesity, restrictive cardiomyopathy, osteoarthritis, anxiety/depression, GERD, sleep apnea Pt reports onset of R anterior shoulder pain this AM. Was seen in PCP clinic and experienced sudden onset substernal chest pain. Given aspirin and nitroglycerin, sent to ER for evaluation. Pt does note he's had shoulder pain for several weeks but no chest pain until today. Reports he did have catheterizations done in the past but was never diagnosed with CAD. He did have a recent ER visit for gout this month. Reports his anterior shoulder pain feels very similar to previous gout pains. Pt arrived to ER hemodynamically stable. Initial evaluation significant for WBC 13. Troponin negative. Pt given morphine, Zofran, fentanyl in ER. At present, pt reports continued R shoulder pain but no further chest pain. Principal Diagnosis non cardiac chest pain right shoulder pain headache Discharge Exam PT is awake and alert, mild distress, will agree to outpt work up of headache and shoulder pain Discharge Data Allergies Allergy/AdvReac Type Severity Reaction Status Date / Time adhesive tape Allergy Mild Redness of Verified 02/10/23 20:23 Skin Iodinated Contrast Media AdvReac Intermediate Gastrointestinal Verified 02/10/23 20:23 Upset Iodine Solution SOLN AdvReac Unknown Unknown Uncoded 02/10/23 20:23 Consultations 02/10/23 23:23 ED Decision to Admit Stat Ordered Studies 02/10/23 21:01 CT abd pelvis wo con Stat 02/11/23 11:33 CT shoulder RT wo con Routine Hospital Course (1) Chest pain: -No further chest pain since ER arrival -Troponin negative x 2 -EKG w/o acute ST change -TTE ordered, last one done in 01/2022 EF 60-65% w/o WMA -Last catheterization 2017 w/o abnormality - Cardiogenic sources of his chest pain feels to be ruled out by diagnostic testing and pain is mostly related to musculoskeletal changes of his shoulder, could benefit from MRI but pt endorses will only have open MRI, will defer to out pt work up (2) Shoulder pain, right: -Chronic issue with acute worsening now -Suspect likely osteoarthritic, lower suspicion for referred pain from cardiac cause -May be related to gout flare, will trial Toradol and Voltaren PRN -Uric acid is in the normal range (3) Type 2 diabetes mellitus: Chronic and stable-A1C 6.6% in 11/2022 typically home on semaglutide, Jardiance, glargine 40 twice daily - (4) Restrictive cardiomyopathy: Chronic and stable-Continue aspirin, statin, metoprolol (5) Chronic diastolic heart failure: -Currently euvolemic chronic and stable -Continue metoprolol, spironolactone, torsemide, Jardiance (6) CKD (chronic kidney disease) stage 3, GFR 30-59 ml/min: Chronic and stable-Cr 1.34, at baseline (7) Depression: Chronic and stable continue fluoxetine Total Time Total Time Spent Total Time Spent (In Minutes): It required greater than 30 minutes to prepare this patient for discharge Discharge Plan Discharge Items Patient Disposition: Home - Self-Care Reason For Visit: CHEST PAIN Discharge Diagnosis: non cardiac chest pain right shoulder pain headache, suspect tension headache Activity: Resume your previous activity Non-emergency contact: Primary Care Provider Call non-emergency contact if: your symptoms worsen Follow-up/Referrals: Melissa Frazier MD [Primary Care Provider] - 02/16/23 10:20 am Diet: Low Sodium (2gm) Addtl Attending Provider Instructions: please rest and recover follow up with DR Frazier to discuss eval of shoulder and neck Pending Studies at Discharge: No Stand-Alone Forms: My [employer], Smoking Cessation Medications and DC Order Prescriptions: New oxycodone 10 mg tablet 10 mg PO TID PRN (Reason: pain) Qty: 20 0RF Continued cholecalciferol (vitamin D3) 50 mcg (2,000 unit) capsule 50 mcg PO BID Qty: 180 1RF cyanocobalamin (vitamin B-12) 2,500 mcg tablet 2,500 mcg PO DAILY 90 Days Qty: 90 1RF (DME) FreeStyle Shlomo 2 Eva Misc See Rx Instructions .Route Qty: 1 0RF Rx Instructions: As directed to check blood sugar (scan at least every 8 hours) (DME) pen needle, diabetic [BD Ultra-Fine Short Pen Needle] 31 gauge x 5/16" needle See Rx Instructions .Route Qty: 200 3RF Rx Instructions: Use with insulin pen twice daily Dx:E11.9 omeprazole 20 mg capsule,delayed release(DR/EC) 20 mg PO QAM Qty: 90 3RF potassium chloride 20 mEq tablet extended release 20 meq PO QAM Qty: 90 3RF insulin glargine [Basaglar KwikPen U-100 Insulin] 100 unit/mL (3 mL) insulin pen 40 unit subcut BID Qty: 45 3RF Rx Instructions: ON HOLD PER PT "MAKE BSG GO TOO LOW, STOPPED TAKING FOR NOW". INJECT 40 UNITS DAILY OR DIRECTED. (DME) FreeStyle Shlomo 2 Sensor Kit See Rx Instructions .ROUTE .COMPLEX Qty: 2 5RF Dose Instruction: DIRECTED TO CHECK BLOOD SUGARS CONTINUOUSLY (REPLACE EVERY 14 DAYS) Rx Instructions: DIRECTED TO CHECK BLOOD SUGARS CONTINUOUSLY (REPLACE EVERY 14 DAYS) atorvastatin 40 mg tablet 40 mg PO QAM Qty: 90 1RF (DME) Oxygen Home Liters Per Minute See Rx Instructions .Route Qty: 1 0RF Rx Instructions: As directed fluoxetine 20 mg capsule 40 mg PO QAM Rx Instructions: TAKES 2 TABLETS DAILY metoprolol succinate 50 mg tablet extended release 24 hr See Rx Instructions .ROUTE .COMPLEX Rx Instructions: PER EXT MED HX--TAKES 75 MG QAM, THEN 50 MG QPM. semaglutide 1 mg/dose (4 mg/3 mL) pen injector 1 mg subcut WK Qty: 3 1RF Rx Instructions: Takes wed torsemide 100 mg tablet 100 mg PO QAM aspirin [Kelton Low Dose Aspirin] 81 mg Tablet,Delayed Release (Dr/Ec) 162 mg PO QAM spironolactone 50 mg tablet 50 mg PO BID Rx Instructions: TAKES QAM AND 1300. lorazepam 0.5 mg tablet 0.5 mg sublingual Q6H PRN (Reason: Anxiety) albuterol sulfate 90 mcg/actuation HFA aerosol inhaler 2 puff INHALATION Q4H PRN (Reason: Shortness Of Breath Or Wheezing) Jardiance 10 mg tablet 10 mg PO QAM Qty: 30 0RF Discharge Orders: Discharge Order (Routine); Ordered 02/13/23 Ordered By: Jose Elias Sarabia Admission Data Admit Date/Time: 02/12/23 13:30 Attending Provider: Jose Elias Sarabia Admit Provider: Timothy Chairez Primary Care Provider: Melissa Frazier Other Providers: Primitivo Rodas Other Interventions: Discharge Summary Assessment (RN) Last Done: 02/13/23 14:48 Coding Level of Care Code 05179 INP/OBS DISCH >30 MIN Diagnoses Chest pain R07.9 Shoulder pain, right M25.511 Type 2 diabetes mellitus E11.9 Restrictive cardiomyopathy I42.5 Chronic diastolic heart failure I50.32 CKD (chronic kidney disease) stage 3, GFR 30-59 ml/min N18.30 Chronic kidney disease stage 3 subtype: unspecified whether 3a or 3b Depression F33.9 Depression Type: major depressive disorder Major depression recurrence: recurrent Active/Remission status: currently active Major depression episode severity: unspecified
== END 2023-02-13 16:00 | disposition home or self-care (01) | DRG 313 ==
LOC: ED 19:06 → 2N 19:06 → SUATTDRO 23:41 → 2N 02-11 01:59 → 3N 02-12 00:34

== ENCOUNTER 2023-03-05 18:33 | Inpatient (IN) ==
[2023-03-05] MEDS ORDERED: ONDANSETRON INJ 2 MG/ML 2 ML VIAL IV STA (18:44)
[2023-03-05] MEDS ORDERED: SODIUM CHLORIDE 0.9% 1000ML 1,000 ML IV SCH (18:45)
--- NOTE | 2023-03-05 18:50 | Emergency Department Note ---
Impression & Plan Near syncope, Fall, Nausea vomiting and diarrhea, COVID-19, Weakness ED Provider Note INFORMANT: Patient ED PROVIDER(S): Dimas Driscoll DO CHIEF COMPLAINT: Lightheadedness, fall PLAN: Disposition: Admission Outpatient prescription management: [none] Discussion with: I spoke with the hospitalist, who will see the patient for admission/observation and further evaluation and consultation. MEDICAL DECISION MAKING: This is a 77-year-old male who presents to the ED with a chief complaint of feeling lightheaded when he got up to go to the bathroom today. He states that he has not been feeling well for the past several days. Starting on Monday he developed nausea, vomiting and diarrhea about 2-3 episodes each he per day. He states that anytime he tries to take something p.o. he is unable to keep it down. The patient states that he got up to go to the bathroom today. He states that he was at a local gas station and felt like he had to urinate. He states that he was feeling a little lightheaded prior to getting up and when he got up, he Became more lightheaded. He states that he took several steps backwards and fell over striking his head on the concrete. The patient denies loss of consciousness. He did complain of some right shoulder pain as well as a skin tear to the right elbow area. He also complains of a mild headache. Denies any pain in his hips or pelvis. No other extremity pains. Reports significant generalized weakness at this time. No focal weakness. History of type 2 diabetes. Has not been able to tolerate his medications. EKG shows a sinus tach rate of 123 with right bundle branch block. CT scan of the brain did not show acute traumatic injury. COVID test was positive. White blood cell count is 12.5. Lactic acid was negative. Metabolic panel was unremarkable. TSH was normal. Chest x-ray did not show acute process. No pneumonia. Right shoulder x-ray did not show a fracture. X-ray the pelvis did not show fracture. Because of the patient's significant weakness, he will be seen by the hospitalist for further evaluation and care. He is unable to get out of bed or stand. The patient was treated here with normal saline 1 L IV. He was also given Zofran 4 mg IV. Triage Nursing notes reviewed. Vital Signs: reviewed Prior /Outside records reviewed: [none] Differential diagnosis: Differential includes acute coronary syndrome, myocardial infarction, CVA, TIA, anemia, infection, pneumonia, UTI, pyelonephritis, poor nutrition, dehydration, electrolyte disturbance,hypoglycemia. Differential includes close head injury, intracranial bleed, facial trauma, cervical spine trauma, chest and thoracic trauma, abdominal and intra-abdominal trauma, spine neurologic trauma, extremity trauma. Diagnostics, as interpreted by me: 12 lead ECG: Sinus tachycardia rate 123. Right bundle branch block. No ST elevation. Normal QTc. Cardiac Monitoring ordered: Sinus rhythm in the 1 10-1 20 range Medical decision rules: [none] Imaging studies: CT scan of the brain: No acute process. No pneumonia Procedures: none. Critical care: none. HPI: See MDM above. PAST MEDICAL HISTORY: See Below PAST SURGICAL HISTORY: See Below SOCIAL HISTORY: See Below HOME MEDICATIONS:See Below ALLERGIES: See Below VITALS: See Below PHYSICAL EXAMINATION: See MDM for positive findings otherwise unremarkable. CONSTITUTIONAL/VITAL SIGNS: Reviewed GENERAL:done as appropriate INTEGUMENTARY: done as appropriate HEAD: done as appropriate EYES: done as appropriate RESPIRATORY: done as appropriate CARDIOVASCULAR:done as appropriate GI/ABDOMEN:done as appropriate EXTREMITIES: done as appropriate NEUROLOGICAL: done as appropriate PSYCHIATRIC:done as appropriate MUSCULOSKELETAL:done as appropriate TRIAGE NURSING DOCUMENTATION REVIEWED. Past Med/Surg History Medical History Acute heart failure with preserved ejection fraction (HFpEF) Anxiety and depression BPH (benign prostatic hyperplasia) Chronic diastolic heart failure, NYHA class 3 Degenerative disc disease Diabetes mellitus type 2, insulin dependent GERD (gastroesophageal reflux disease) H/O deep venous thrombosis Hyperlipidemia Hypertension Hypoxia Morbid obesity Nonobstructive atherosclerosis of coronary artery Osteoarthritis Pressure ulcer of right ankle, stage 2 Pulmonary emphysema Restrictive cardiomyopathy Restrictive lung disease secondary to obesity Right knee pain Septic arthritis (01/24/14) Sleep apnea Surgical History Difficult intubation History of arthroscopy History of cardiac cath History of cataract surgery History of colonoscopy History of esophagogastroduodenoscopy (EGD) History of herniorrhaphy History of open reduction and internal fixation (ORIF) procedure History of tooth extraction History of total knee replacement Hx of transurethral resection of prostate S/P cholecystectomy Status post total hip replacement, left Family History Mother Stroke Alzheimer disease Father MVA (motor vehicle accident) Sister Breast cancer Daughter Brain tumor Denies family history of Ovarian cancer Prostate cancer Myocardial infarction Colorectal cancer Social History (Updated 02/15/23 @ 12:24 by TARYN Recinos) Smoking Status: Never smoker Tobacco Type: Cigarettes Age Started Using Tobacco: 18; Cigarettes Per Day: HX OF 1-2 PPD X 10 YEARS, QUIT IN 1974; Second Hand Exposure: No; Do You Dip or Chew Tobacco: No; Hx Alcohol Use: No Hx Substance Use: No Preferred Language: French Communication Ability: Effective Visual Impairment: No Limitations Hearing Ability: Normal [employer] Required: No Beliefs That Will Affect Care: None marital status: Current Living Situation: Spouse current occupational status: retired 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[employer], 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, 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 How many Children do You have: 2 Feels Safe at Home: Yes Childhood Exposure to Second-Hand Smoke: No Diet: regular Diet Comment: regular Dental Care, Regularly: Yes Physical Activity Frequency: Does not Exercise Seatbelt Use: always Sunscreen Use: No Assistive Devices: Cane, Glasses, Oxygen - at Night and Walker Allergies Allergies Allergy/AdvReac Type Severity Reaction Status Date / Time adhesive tape Allergy Mild Redness of Verified 02/15/23 12:19 Skin Iodinated Contrast Media AdvReac Intermediate Gastrointestinal Verified 02/15/23 12:19 Upset Iodine Solution SOLN AdvReac Unknown Unknown Uncoded 02/15/23 12:19 Home Meds Home Medications Medication Instructions Recorded Confirmed aspirin 81 mg tablet,delayed 162 mg PO QAM 01/16/21 02/15/23 release (Kelton Low Dose Aspirin) spironolactone 50 mg tablet 50 mg PO BID 08/26/21 02/15/23 albuterol sulfate 90 mcg/actuation 2 puff inhalation Q4H PRN 12/26/21 02/15/23 aerosol inhaler Shortness Of Breath Or Wheezing lorazepam 0.5 mg tablet 0.5 mg sublingual Q6H PRN Anxiety 12/26/21 02/15/23 torsemide 100 mg tablet 100 mg PO QAM 02/11/22 02/15/23 fluoxetine 20 mg capsule 40 mg PO QAM 01/06/23 02/15/23 metoprolol succinate 50 mg See Rx Instructions .Route .COMPLEX 01/06/23 02/15/23 tablet,extended release 24 hr Previous Rx's Medication Instructions Recorded empagliflozin 10 mg tablet 10 mg PO QAM #30 tabs 01/22/22 (Jardiance) cholecalciferol (vitamin D3) 50 50 mcg PO BID #180 caps 05/09/22 mcg (2,000 unit) capsule cyanocobalamin (vitamin B-12) 2,500 mcg PO DAILY 90 days #90 tabs 05/25/22 2,500 mcg tablet Oxygen Home #1 ea 05/31/22 flash glucose scanning reader #1 ea 06/02/22 (FreeStyle Shlomo 2 [place]) pen needle, diabetic 31 gauge x #200 ea 06/13/2202/28" (BD Ultra-Fine Short Pen Needle) omeprazole 20 mg capsule,delayed 20 mg PO QAM #90 caps 09/16/22 release potassium chloride 20 mEq 20 meq PO QAM #90 tabs 09/16/22 tablet,extended release insulin glargine 100 unit/mL (3 40 unit (0.4 mL) subcut BID #45 mL 09/20/22 mL) subcutaneous pen (Basaglar KwikPen U-100 Insulin) flash glucose sensor (FreeStyle #2 KITS 11/01/22 Shlomo 2 Sensor kit) atorvastatin 40 mg tablet 40 mg PO QAM #90 tabs 01/26/23 Shower Chair #1 ea 02/15/23 diclofenac sodium 1 % topical gel 4 g topical QID #100 grams 02/15/23 (Voltaren Arthritis Pain) prednisone 10 mg tablet See Rx Instructions PO DAILY #30 02/20/23 tabs oxycodone 10 mg tablet 10 mg PO TID PRN pain #20 tabs 02/21/23 semaglutide 1 mg/dose (4 mg/3 mL) 1 mg (0.75 mL) subcut WK #3 mL 02/23/23 subcutaneous pen injector Results & Data (ED) Vital Signs Vital Signs - 24 hr 03/05/23 18:36 Temperature 37.3 C Temperature Source Oral Pulse Rate 115 H Respiratory Rate 20 Blood Pressure 148/69 H Blood Pressure Mean 95 Pulse Oximetry 98 Oxygen Delivery Method Nasal Cannula Oxygen Flow Rate 2 Sepsis Recent Fever Within 48 Hours No Sepsis New/Unexplained Change in Mental Status No Sepsis Action Taken by Nursing No Action Required Laboratory Data 03/05/23 19:10 03/05/23 19:10 Lab Results 03/05/23 03/05/23 03/05/23 Range/Units 18:59 19:10 19:10 WBC (4.8-10.8) K/ul RBC (4.70-6.10) M/uL Hgb (14.0-18.0) g/dl Hct (42.0-52.0) % MCV (80.0-100.0) fL MCH (25.0-34.0) pg MCHC (32.0-36.0) g/dL RDW Std Deviation (36.4-46.3) fL RDW Coeff of Kartik (11.5-14.5) % Plt Count (130-400) K/uL MPV (9.4-12.4) fL Immature Gran % (Auto) % Neut % (Auto) % Lymph % (Auto) % [place] % (Auto) % Eos % (Auto) % Baso % (Auto) % Neut # (Auto) (1.40-6.50) K/uL Lymph # (Auto) (1.2-3.4) K/uL [place] # (Auto) (0.11-0.59) K/uL Eos # (Auto) (0-0.50) K/uL Baso # (Auto) (0-0.2) K/uL Immature Gran # (Auto) (0.01-0.20) K/uL PT 11.1 (9.0-12.0) Seconds INR 1.0 (0.9-1.1) Sodium (136-145) mmol/L Potassium (3.5-5.1) mmol/L Chloride (98-107) mmol/L Carbon Dioxide (21-32) mmol/L Anion Gap (3-11) BUN (6-23) mg/dl Creatinine (0.6-1.4) mg/dl Est Cr Clr Drug Dosing ml/min Est GFR ( Amer) ml/min Est GFR (Non-Af Amer) ml/min BUN/Creatinine Ratio (10-20) Glucose (70-99(Fasting)) mg/dl Lactate 1.2 (0.4-2.0) mmol/L Calcium (8.6-10.3) mg/dl Magnesium (1.7-2.4) mg/dl Total Bilirubin (0.2-1.0) mg/dl AST (13-39) U/L ALT (7-52) U/L Alkaline Phosphatase (34-104) U/L Total Creatine Kinase (30-223) U/L Troponin I High Sens (0-20) pg/ml Total Protein (6.0-8.3) gm/dl Albumin (3.4-5.0) gm/dl Globulin (2.5-4.0) gm/dl Albumin/Globulin Ratio (0.9-2) TSH (0.300-4.500) uIu/ml SARS-CoV-2, RNA, NAAT POSITIVE A* (NEGATIVE) 03/05/23 03/05/23 03/05/23 Range/Units 19:10 19:10 19:10 WBC 12.55 H (4.8-10.8) K/ul RBC 5.04 (4.70-6.10) M/uL Hgb 13.6 L (14.0-18.0) g/dl Hct 43.6 (42.0-52.0) % MCV 86.5 (80.0-100.0) fL MCH 27.0 (25.0-34.0) pg MCHC 31.2 L (32.0-36.0) g/dL RDW Std Deviation 56.2 H (36.4-46.3) fL RDW Coeff of Kartik 17.8 H (11.5-14.5) % Plt Count 247 (130-400) K/uL MPV 10.4 (9.4-12.4) fL Immature Gran % (Auto) 1.0 % Neut % (Auto) 67.2 % Lymph % (Auto) 13.5 % [place] % (Auto) 16.1 % Eos % (Auto) 1.7 % Baso % (Auto) 0.5 % Neut # (Auto) 8.44 H (1.40-6.50) K/uL Lymph # (Auto) 1.70 (1.2-3.4) K/uL [place] # (Auto) 2.02 H (0.11-0.59) K/uL Eos # (Auto) 0.21 (0-0.50) K/uL Baso # (Auto) 0.06 (0-0.2) K/uL Immature Gran # (Auto) 0.12 (0.01-0.20) K/uL PT (9.0-12.0) Seconds INR (0.9-1.1) Sodium 132 L (136-145) mmol/L Potassium 3.4 L (3.5-5.1) mmol/L Chloride 98 (98-107) mmol/L Carbon Dioxide 28 (21-32) mmol/L Anion Gap 6 (3-11) BUN 9 (6-23) mg/dl Creatinine 1.29 (0.6-1.4) mg/dl Est Cr Clr Drug Dosing 67.2 ml/min Est GFR ( Amer) 62.4 ml/min Est GFR (Non-Af Amer) 53.9 ml/min BUN/Creatinine Ratio 7.0 L (10-20) Glucose 109 H (70-99(Fasting)) mg/dl Lactate (0.4-2.0) mmol/L Calcium 9.4 (8.6-10.3) mg/dl Magnesium 1.9 (1.7-2.4) mg/dl Total Bilirubin 0.5 (0.2-1.0) mg/dl AST 14 (13-39) U/L ALT 15 (7-52) U/L Alkaline Phosphatase 73 (34-104) U/L Total Creatine Kinase 105 (30-223) U/L Troponin I High Sens 12.6 (0-20) pg/ml Total Protein 6.4 (6.0-8.3) gm/dl Albumin 3.4 (3.4-5.0) gm/dl Globulin 3.0 (2.5-4.0) gm/dl Albumin/Globulin Ratio 1.1 (0.9-2) TSH 1.716 (0.300-4.500) uIu/ml SARS-CoV-2, RNA, NAAT (NEGATIVE) Administered Medications Discontinued Medications Sodium Chloride (Nss 1000ml) 1,000 mls @ 999 mls/hr IV .Q1H1M MORE Stop: 03/05/23 19:45 Last Admin: 03/05/23 19:35 Dose: 999 mls/hr Documented By: [facility] Ondansetron HCl (Ondansetron Inj 2 Mg/Ml 2 Ml Vial) 4 mg IV NOW STA Stop: 03/05/23 18:45 Last Admin: 03/05/23 19:38 Dose: 4 mg Documented By: [facility] Imaging Data Radiologist's Impression: Head CT 03/05/23 18:44 CT head/brain wo con CLINICAL HISTORY: fall hit head Technique: Contiguous axial CT images of the head were acquired from the base of the skull to the vertex without intravenous contrast administration. Images were viewed in brain, subdural and bone windows. Automated dose lowering techniques and/or adjustment according to patient size were utilized for this exam. Comparison: Comparison is made to CT head 12/28/2021 Findings: Areas of decreased attenuation are present in the periventricular and subcortical white matter bilaterally consistent with small vessel ischemic disease. Generalized cerebral atrophy with commensurate enlargement of the ventricles, sulci, and cisterns is also present. There is no acute intracranial hemorrhage or evidence of acute territorial infarction. No shift of the midline structures, mass effect, or extra-axial abnormalities are shown. Atherosclerotic calcifications are present in the intracranial segments of the internal carotid arteries. Imaged portions of the paranasal sinuses and mastoid air cells are clear. The orbits appear normal. There are no acute fractures of the calvaria or scalp swelling. Impression: No acute intracranial hemorrhage, no evidence of acute territorial infarction or other acute intracranial disease process. ACT 112: Negative or not required by law. Electronically signed by: Colt Paula M.D. 03/05/2023 7:29 PM Discharge Plan Visit Data Chief Complaint: Fall ED Provider: Dimas Driscoll Discharge Problem: Near syncope, Fall, Nausea vomiting and diarrhea, COVID-19, Weakness Patient Disposition: Being Evaluated by Hospitalist Forms Stand Alone Forms: My [facility] Prescriptions Prescriptions: No Action cholecalciferol (vitamin D3) 50 mcg (2,000 unit) capsule 50 mcg PO BID Qty: 180 1RF cyanocobalamin (vitamin B-12) 2,500 mcg tablet 2,500 mcg PO DAILY 90 Days Qty: 90 1RF (DME) FreeStyle Shlomo 2 [place] Misc See Rx Instructions .Route Qty: 1 0RF Rx Instructions: As directed to check blood sugar (scan at least every 8 hours) (DME) pen needle, diabetic [BD Ultra-Fine Short Pen Needle] 31 gauge x 5/16" needle See Rx Instructions .Route Qty: 200 3RF Rx Instructions: Use with insulin pen twice daily Dx:E11.9 omeprazole 20 mg capsule,delayed release(DR/EC) 20 mg PO QAM Qty: 90 3RF potassium chloride 20 mEq tablet extended release 20 meq PO QAM Qty: 90 3RF insulin glargine [Basaglar KwikPen U-100 Insulin] 100 unit/mL (3 mL) insulin pen 40 unit subcut BID Qty: 45 3RF Rx Instructions: ON HOLD PER PT "MAKE BSG GO TOO LOW, STOPPED TAKING FOR NOW". INJECT 40 UNITS DAILY OR DIRECTED. (DME) FreeStyle Shlomo 2 Sensor Kit See Rx Instructions .ROUTE .COMPLEX Qty: 2 5RF Dose Instruction: DIRECTED TO CHECK BLOOD SUGARS CONTINUOUSLY (REPLACE EVERY 14 DAYS) Rx Instructions: DIRECTED TO CHECK BLOOD SUGARS CONTINUOUSLY (REPLACE EVERY 14 DAYS) atorvastatin 40 mg tablet 40 mg PO QAM Qty: 90 1RF prednisone 10 mg tablet See Rx Instructions PO DAILY Qty: 30 0RF Rx Instructions: 4 tabs for 3 days, then 3 tabs for 3 days, then 2 tabs for 3 days, then 1 tab for 3 days. PO DAILY; oxycodone 10 mg tablet 10 mg PO TID PRN (Reason: pain) Qty: 20 0RF semaglutide 1 mg/dose (4 mg/3 mL) pen injector 1 mg subcut WK Qty: 3 1RF Rx Instructions: Takes wed (DME) Oxygen Home Liters Per Minute See Rx Instructions .Route Qty: 1 0RF Rx Instructions: As directed fluoxetine 20 mg capsule 40 mg PO QAM Rx Instructions: TAKES 2 TABLETS DAILY metoprolol succinate 50 mg tablet extended release 24 hr See Rx Instructions .ROUTE .COMPLEX Rx Instructions: PER EXT MED HX--TAKES 75 MG QAM, THEN 50 MG QPM. diclofenac sodium [Voltaren Arthritis Pain] 1 % gel 4 g topical QID Qty: 100 2RF Rx Instructions: apply to single knee, ankle, foot; for foot includes sole/toes/top of foot (DME) Shower Chair Misc See Rx Instructions .Route Qty: 1 0RF Rx Instructions: Shower transfer bench-G62.9 torsemide 100 mg tablet 100 mg PO QAM aspirin [Kelton Low Dose Aspirin] 81 mg Tablet,Delayed Release (Dr/Ec) 162 mg PO QAM spironolactone 50 mg tablet 50 mg PO BID Rx Instructions: TAKES QAM AND 1300. lorazepam 0.5 mg tablet 0.5 mg sublingual Q6H PRN (Reason: Anxiety) albuterol sulfate 90 mcg/actuation HFA aerosol inhaler 2 puff INHALATION Q4H PRN (Reason: Shortness Of Breath Or Wheezing) Jardiance 10 mg tablet 10 mg PO QAM Qty: 30 0RF Referrals Referrals: Melissa Frazier MD [Primary Care Provider] -
--- NOTE | 2023-03-05 19:30 | CT Scan Report ---
CT head/brain wo con CLINICAL HISTORY: fall hit head Technique: Contiguous axial CT images of the head were acquired from the base of the skull to the ann itzel without intravenous contrast administration. Images were viewed in brain, subdural and bone [facility]. Automated dose lowering techniques and/or adjustment according to patient size were utilized for this exam. Comparison: Comparison is made to CT head 12/28/2021 Findings: Areas of decreased attenuation are present in the periventricular and subcortical white matter bilate rally consistent with small vessel ischemic disease. Generalized cerebral atrophy with commensurate e nlargement of the ventricles, sulci, and cisterns is also present. There is no acute intracranial hem orrhage or evidence of acute territorial infarction. No shift of the midline structures, mass effect, or extra-axial abnormalities are shown. Atherosclerotic calcifications are present in the intracran ial segments of the internal carotid arteries. Imaged portions of the paranasal sinuses and mastoid air cells are clear. The orbits appear normal. There are no acute fractures of the calvaria or scalp swelling. Impression: No acute intracranial hemorrhage, no evidence of acute territorial infarction or other acute intracra nial disease process. ACT 112: Negative or not required by law. Electronically signed by: Colt Paula M.D. 03/05/2023 7:29 PM
[2023-03-05 19:49] LABS: Basophils # (auto) 0.06 K/uL (0-0.2); Basophils % (auto) 0.5 %; Eosinophils # (auto) 0.21 K/uL (0-0.50); Eosinophils % (auto) 1.7 %; Hematocrit (blood only) 43.6 % (42.0-52.0); Hemoglobin 13.6 g/dl (14.0-18.0); Immature Granulocytes # (auto) 0.12 K/uL (0.01-0.20); Lymphocytes % (auto) 13.5 %; Mean Corpuscular Hgb Conc 31.2 g/dL (32.0-36.0); Mean Corpuscular Volume 86.5 fL (80.0-100.0); Mean Platelet Volume 10.4 fL (9.4-12.4); Monocytes # (auto) 2.02 K/uL (0.11-0.59); Monocytes % (auto) 16.1 %; Neutrophils # (auto) 8.44 K/uL (1.40-6.50); Neutrophils % (auto) 67.2 %; Platelet Count 247 K/uL (130-400); RDW Coefficient of Variation 17.8 % (11.5-14.5); RDW Standard Deviation 56.2 fL (36.4-46.3); Red Blood Count 5.04 M/uL (4.70-6.10); White Blood Count 12.55 K/ul (4.8-10.8)
[2023-03-05 20:11] LABS: Albumin Globulin Ratio 1.1 (0.9-2); Albumin Level 3.4 gm/dl (3.4-5.0); Bilirubin,Total 0.5 mg/dl (0.2-1.0); Calcium 9.4 mg/dl (8.6-10.3); Creatinine Clr Calc Pharmacy 67.2 ml/min; Est GFR (African American) 62.4 ml/min; Est GFR (Non-African American) 53.9 ml/min; Magnesium 1.9 mg/dl (1.7-2.4); Potassium 3.4 mmol/L (3.5-5.1); Total Protein 6.4 gm/dl (6.0-8.3)
[2023-03-05 20:18] LABS: Troponin I High Sensitivity 12.6 pg/ml (0-20)
[2023-03-05 20:25] LABS: Prothrombin Time 11.1 Seconds (9.0-12.0)
[2023-03-05 21:39] LABS: Appearance Urine Clear (Clear); Bacteria Urine Automated Negative (Negative); Bilirubin Urine Negative (Negative); Blood Urine Trace (Negative); Cast Urine Automated 0 /lpf (0-5); Color Urine Yellow; Glucose Urine UA 3+ (Negative); Ketones Urine Negative (Negative); Leukocyte Esterase Urine Negative (Negative); Nitrite Urine Negative (Negative); Protein Urine Negative (Negative); RBC Urine Automated 0-4 /hpf (0-4); Specific Gravity Urine 1.015 (1.000-1.030); Urobilinogen Urine Negative (Negative); pH Urine 6.5 (4.5-7.5)
[2023-03-06] MEDS ORDERED: ALUMINUM/MAGNESIUM SUSP 30 ML UDC PO PRN (02:47)
[2023-03-06] MEDS ORDERED: ALBUTEROL HFA 8 GM INHALER INH PRN (02:47)
[2023-03-06] MEDS ORDERED: SODIUM CHLORIDE 0.9% 1000ML 1,000 ML IV SCH (02:47)
[2023-03-06] MEDS ORDERED: ONDANSETRON INJ 2 MG/ML 2 ML VIAL IV PRN (02:47)
[2023-03-06] MEDS: ACETAMINOPHEN 325 MG TAB PO PRN ×3 (03:45→21:54)
--- NOTE | 2023-03-06 06:03 | History & Physical Report ---
Date of Service March 06, 2023 Assessment & Plan (1) Near syncope: Plan: Patient presents to the ED with complaints of lightheadedness and a near syncopal episode.. Patient has been having ongoing symptoms of generalized weakness associated with nausea vomiting and diarrhea with poor p.o. intake over the past 3 days. Patient also tested positive for COVID-19 infection in the ED Near syncope likely secondary to volume depletion from acute viral illness . Patient has been on diuretic therapy with torsemide and spironolactone that exacerbated volume depletion with ongoing GI losses Patient given 1 L normal saline bolus in the ED and will be continued on IV fluids cautiously CT of the head negative for any intracranial bleed or acute injury. Monitor hemodynamics closely Check transthoracic echo Troponin not elevated will trend levels (2) Fall: Plan: Patient presents with fall secondary to near syncopal episode Patient reports right shoulder pain and has skin tear over the right elbow X-ray of the right shoulder does not reveal any fracture or dislocation CT head negative for any acute process and x-ray of the pelvis negative PT OT eval (3) COVID-19: Plan: Patient test positive for COVID-19 infection in the ED Chest x-ray does not show any acute infiltrates and pulse oximetry shows oxygen sats over 90 on room air Patient likely has nausea vomiting and diarrhea from acute illness related to COVID-19 infection Patient has mild hyponatremia likely secondary to volume depletion Hypokalemia mild-K levels repleted recheck levels in a.m. Continue supportive therapy (4) Nausea vomiting and diarrhea: Plan: Upper GI symptoms likely secondary to COVID-19 infection Continue IV fluids Antiemetics as needed (5) Hypertension: Plan: Continue metoprolol at home dose with hold parameters as patient has lightheadedness Monitor blood pressure titrate meds as tolerated (6) Hyperlipidemia: Plan: Continue statin therapy with atorvastatin (7) Chronic diastolic heart failure: Plan: Patient has known history of diastolic heart failure and is on diuretic therapy with spironolactone and torsemide at home hold diuretics in the setting of volume depletion and poor p.o. intake Monitor input output closely (8) Diabetes mellitus type 2, insulin dependent: Plan: Patient will be placed on sliding scale with coverage with short acting insulin based on fingerstick monitoring Check hemoglobin A1c level (9) GERD (gastroesophageal reflux disease): Plan: Continue PPI therapy with Protonix Admission and Anticipated Discharge Date Admission Date: March 06, 2023 History of Present Illness Chief Complaint: Lightheadedness and generalized weakness Primary Care Provider: Melissa Frazier MD This is a 72-year-old male with past medical history significant history of hypertension, hyperlipidemia, gastroesophageal flux disease, diabetes mellitus, restrictive heart disease, who presents to the emergency department with complaints of lightheadedness and fall. Patient reports that he has been having ongoing complaints of nausea vomiting and diarrhea about 2- 3 episodes per day over the past 3 days. Patient reports feeling rundown with generalized weakness and has been having poor p.o. intake secondary to his GI symptoms. Patient reports that when he was trying to get up and walk a local gas station he felt lightheaded when he tried to ambulate and took a few steps backwards and fell over the concrete. Patient had struck his right elbow and his head over the concrete on the floor but did not reported losing consciousness and was aware of the situation. Patient was brought into ED for further evaluation. Patient had some skin tear over the right elbow area and had some headache symp toms but denies any chest pain or shortness of breath. No focal weakness reported. Further evaluation in the ED shows that his CT of the head did not show any evidence of acute traumatic injury or acute bleed. Patient was found to be COVID test positive and his white count was 12.5 but his metabolic panel and lactic acid were within normal limits. Chest x-ray preliminary report did not show any evidence of acute infiltrates and right shoulder x-ray did not show any fracture or dislocation. Patient given IV fluid bolus and patient continued to have severe generalized weakness and hence is being admitted for further management at this time . Allergies Allergy/AdvReac Type Severity Reaction Status Date / Time adhesive tape Allergy Mild Redness of Verified 02/15/23 12:19 Skin Iodinated Contrast Media AdvReac Intermediate Gastrointestinal Verified 02/15/23 12:19 Upset iodine AdvReac Unknown "iodine Verified 03/06/23 03:00 solution caused unknown" Home Medications Medication Instructions Recorded Confirmed Type aspirin 81 mg tablet,delayed 162 mg PO QAM 01/16/21 02/15/23 History release ([place] Low Dose Aspirin) spironolactone 50 mg tablet 50 mg PO BID 08/26/21 02/15/23 History albuterol sulfate 90 mcg/actuation 2 puff inhalation Q4H PRN 12/26/21 02/15/23 History aerosol inhaler Shortness Of Breath Or Wheezing lorazepam 0.5 mg tablet 0.5 mg sublingual Q6H PRN Anxiety 12/26/21 02/15/23 History empagliflozin 10 mg tablet 10 mg PO QAM #30 tabs 01/22/22 02/15/23 Rx (Jardiance) torsemide 100 mg tablet 100 mg PO QAM 02/11/22 02/15/23 History cholecalciferol (vitamin D3) 50 50 mcg PO BID #180 caps 05/09/22 02/15/23 Rx mcg (2,000 unit) capsule cyanocobalamin (vitamin B-12) 2,500 mcg PO DAILY 90 days #90 tabs 05/25/22 02/15/23 Rx 2,500 mcg tablet Oxygen Home #1 ea 05/31/22 02/15/23 Rx flash glucose scanning reader #1 ea 06/02/22 02/15/23 Rx (FreeStyle Shlomo 2 [place]) pen needle, diabetic 31 gauge x #200 ea 06/13/22 02/15/23 Rx 5/16" (BD Ultra-Fine Short Pen Needle) omeprazole 20 mg capsule,delayed 20 mg PO QAM #90 caps 09/16/22 02/15/23 Rx release potassium chloride 20 mEq 20 meq PO QAM #90 tabs 09/16/22 02/15/23 Rx tablet,extended release insulin glargine 100 unit/mL (3 40 unit (0.4 mL) subcut BID #45 mL 09/20/22 02/15/23 Rx mL) subcutaneous pen (Basaglar KwikPen U-100 Insulin) flash glucose sensor (FreeStyle #2 KITS 11/01/22 02/15/23 Rx Shlomo 2 Sensor kit) fluoxetine 20 mg capsule 40 mg PO QAM 01/06/23 02/15/23 History metoprolol succinate 50 mg See Rx Instructions .Route .COMPLEX 01/06/23 02/15/23 History tablet,extended release 24 hr atorvastatin 40 mg tablet 40 mg PO QAM #90 tabs 01/26/23 02/15/23 Rx Shower Chair #1 ea 02/15/23 02/15/23 Rx diclofenac sodium 1 % topical gel 4 g topical QID #100 grams 02/15/23 02/15/23 Rx (Voltaren Arthritis Pain) prednisone 10 mg tablet See Rx Instructions PO DAILY #30 02/20/23 Rx tabs oxycodone 10 mg tablet 10 mg PO TID PRN pain #20 tabs 02/21/23 Rx semaglutide 1 mg/dose (4 mg/3 mL) 1 mg (0.75 mL) subcut WK #3 mL 02/23/23 Rx subcutaneous pen injector Past Med/Surg History Medical History Acute heart failure with preserved ejection fraction (HFpEF) Anxiety and depression BPH (benign prostatic hyperplasia) Chronic diastolic heart failure, NYHA class 3 Degenerative disc disease Diabetes mellitus type 2, insulin dependent GERD (gastroesophageal reflux disease) H/O deep venous thrombosis Hyperlipidemia Hypertension Hypoxia Morbid obesity Nonobstructive atherosclerosis of coronary artery Osteoarthritis Pressure ulcer of right ankle, stage 2 Pulmonary emphysema Restrictive cardiomyopathy Restrictive lung disease secondary to obesity Right knee pain Septic arthritis (01/24/14) Sleep apnea Surgical History Difficult intubation History of arthroscopy History of cardiac cath History of cataract surgery History of colonoscopy History of esophagogastroduodenoscopy (EGD) History of herniorrhaphy History of open reduction and internal fixation (ORIF) procedure History of tooth extraction History of total knee replacement Hx of transurethral resection of prostate S/P cholecystectomy Status post total hip replacement, left Family History Mother Stroke Alzheimer disease Father MVA (motor vehicle accident) Sister Breast cancer Daughter Brain tumor Denies family history of Ovarian cancer Prostate cancer Myocardial infarction Colorectal cancer Social History (Updated 02/15/23 @ 12:24 by TARYN Recinos) Smoking Status: Former smoker Tobacco Type: Cigarettes Age Started Using Tobacco: 18; Cigarettes Per Day: 1-2 ppd; Smoking End Date: 1974; Second Hand Exposure: No; Do You Dip or Chew Tobacco: No; Hx Alcohol Use: No Hx Substance Use: No Preferred Language: Estonian Communication Ability: Effective Visual Impairment: No Limitations Hearing Ability: Normal Sales Assistant Required: No Beliefs That Will Affect Care: None marital status: Current Living Situation: Spouse Current Living Situation Comment: with Bridgett current occupational status: retired 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[employer], 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, 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 How many Children do You have: 2 Other Information That Helps Us Care for You: No Feels Safe at Home: Yes Safety Concerns: Feels Safe At This Time Childhood Exposure to Second-Hand Smoke: No Diet: regular Diet Comment: regular Dental Care, Regularly: Yes Physical Activity Frequency: Does not Exercise Seatbelt Use: always Sunscreen Use: No Assistive Devices: Cane, Denture - Upper, Glasses, Oxygen - at Night and Walker Review of Systems Review of Systems: Constitutional-generalized weakness ENT-no blurred vision, no double vision, no epistaxis, Respiratory- no shortness of breath noted with exertion. No wheezing Cardiac-no palpitations, no chest pain, GI-npt reports nausea, vomiting, diarrhea, -no urinary retention, no urinary incontinence, no dysuria, no hematuria Musculoskeletal-right shoulder pain, Skin-no bruising, no rashes, no pruritus Neuro-no isolated weakness, Physical Exam Physical Exam: Head and ENT no thyroid enlargement trachea midline Oral mucosa slightly dry Cardiovascular S1-S2 are normal no S3 Lungs bilateral air entry fair no wheezing Abdomen soft nondistended positive bowel sounds no rebound tenderness Extremity shows trace edema Neurologically no focal deficits Skin shows no rash no cyanosis Results & Data Results & Data Vital Signs (Past 12 Hours) Vital Signs Temp Pulse Pulse Resp BP BP Pulse Ox 03/06/23 05:36 03/06/23 02:47 37.5 C 111 H 20 151/77 H 96 03/06/23 03:16 114 H 03/06/23 03:48 37.5 C 111 H 20 151/77 H 96 03/06/23 01:47 112 H 16 134/68 97 03/06/23 01:00 110 H 16 137/73 97 03/05/23 22:00 116 H 20 116/67 98 03/05/23 20:57 111 H 19 136/55 L 99 03/05/23 18:36 37.3 C 115 H 20 148/69 H 98 O2 Del Method O2 Flow Rate 03/06/23 05:36 Nasal Cannula 2 03/06/23 02:47 Nasal Cannula 2 03/06/23 03:16 03/06/23 03:48 Nasal Cannula 2 03/06/23 01:47 Room Air 05/22/23 01:00 Room Air 03/05/23 22:00 Nasal Cannula 2 03/05/23 20:57 Nasal Cannula 2 03/05/23 18:36 Nasal Cannula 2 Laboratory Results Short CBC 03/05/23 Range/Units 19:10 WBC 12.55 H (4.8-10.8) K/ul Hgb 13.6 L (14.0-18.0) g/dl Hct 43.6 (42.0-52.0) % Plt Count 247 (130-400) K/uL BMP 03/05/23 19:10 Sodium 132 L Potassium 3.4 L Chloride 98 Carbon Dioxide 28 BUN 9 Creatinine 1.29 Glucose 109 H Calcium 9.4 Cardiac Enzymes 03/05/23 Range/Units 19:10 Total Creatine Kinase 105 (30-223) U/L Liver Function 03/05/23 Range/Units 19:10 Total Bilirubin 0.5 (0.2-1.0) mg/dl AST 14 (13-39) U/L ALT 15 (7-52) U/L Alkaline Phosphatase 73 (34-104) U/L Albumin 3.4 (3.4-5.0) gm/dl Urine 03/05/23 Range/Units 20:40 Urine Color Yellow Urine Appearance Clear (Clear) Urine pH 6.5 (4.5-7.5) Ur Specific [place] 1.015 (1.000-1.030) Urine Protein Negative (Negative) Urine Glucose (UA) 3+ H (Negative) Diagnostic Findings Head CT 03/05/23 18:44 CT head/brain wo con CLINICAL HISTORY: fall hit head Technique: Contiguous axial CT images of the head were acquired from the base of the skull to the vertex without intravenous contrast administration. Images were viewed in brain, subdural and bone windows. Automated dose lowering techniques and/or adjustment according to patient size were utilized for this exam. Comparison: Comparison is made to CT head 12/28/2021 Findings: Areas of decreased attenuation are present in the periventricular and subcortical white matter bilaterally consistent with small vessel ischemic disease. Generalized cerebral atrophy with commensurate enlargement of the ventricles, sulci, and cisterns is also present. There is no acute intracranial hemorrhage or evidence of acute territorial infarction. No shift of the midline structures, mass effect, or extra-axial abnormalities are shown. Atherosclerotic calcifications are present in the intracranial segments of the internal carotid arteries. Imaged portions of the paranasal sinuses and mastoid air cells are clear. The orbits appear normal. There are no acute fractures of the calvaria or scalp swelling. Impression: No acute intracranial hemorrhage, no evidence of acute territorial infarction or other acute intracranial disease process. ACT 112: Negative or not required by law. Electronically signed by: Colt Paula M.D. 03/05/2023 7:29 PM PG Care Time/CCT Total # of Minutes Spent Total Time Spent with Patient: Total time spent is greater than 50% in coordination of care (as documented) at patient's floor/unit and/or counseling patient: Coding Level of Care Code 56446 INT INP/OBS CARE 255MIN Diagnoses Near syncope R55 Fall W19.XXXA COVID-19 U07.1 Nausea vomiting and diarrhea R11.2; R19.7 Hypertension I10 Hypertension type: essential hypertension Hyperlipidemia E78.5 Hyperlipidemia type: unspecified Chronic diastolic heart failure I50.32 Diabetes mellitus type 2, insulin dependent E11.9; Z79.4 GERD (gastroesophageal reflux disease) K21.9 Esophagitis presence: esophagitis presence not specified (5) Hypertension Hypertension type: essential hypertension Qualified Code(s): I10 - Essential (primary) hypertension (6) Hyperlipidemia Hyperlipidemia type: unspecified Qualified Code(s): E78.5 - Hyperlipidemia, unspecified (9) GERD (gastroesophageal reflux disease) Esophagitis presence: esophagitis presence not specified Qualified Code(s): K21.9 - Gastro-esophageal reflux disease without esophagitis
--- NOTE | 2023-03-06 07:33 | XRay Report ---
XR pelvis 1-2V routine CLINICAL HISTORY: fall TECHNIQUE: A single frontal view of the pelvis was obtained. Comparison: Comparison is made to CT abdomen pelvis 02/02/2023 and hip radiograph 09/06/2019 FINDINGS: There is no evidence of an acute fracture. Bilateral total hip arthroplasties are seen. No soft tissu e abnormality is seen. IMPRESSION: No evidence of acute osseous injury. ACT 112: Negative or not required by law. Electronically signed by: Colt Paula M.D. 03/06/2023 7:30 AM
--- NOTE | 2023-03-06 08:27 | XRay Report ---
XR shoulder RT min 2V routine CLINICAL HISTORY: fall, pain TECHNIQUE: 3 views of the right shoulder were obtained. Comparison: None available at the time of this dictation. FINDINGS: There is no evidence of an acute fracture. Degenerative changes are seen in the glenohumeral joint. T he overlying soft tissues are unremarkable. The visualized portions of the lungs are clear. IMPRESSION: Degenerative changes without evidence of acute abnormality. ACT 112: Negative or not required by law. Electronically signed by: Colt Paula M.D. 03/06/2023 8:25 AM
--- NOTE | 2023-03-06 08:36 | XRay Report ---
XR chest 1V portable CLINICAL HISTORY: weakness TECHNIQUE: Single frontal radiograph of the chest was obtained. Comparison: Comparison is made to chest radiograph 02/10/2023 FINDINGS: Exam is limited by underpenetration. Calcified aortic knob is seen. The lungs are clear. No evidence of pleural effusion or pneumothorax. IMPRESSION: No acute chest disease. ACT 112: Negative or not required by law. Electronically signed by: Colt Paula M.D. 03/06/2023 8:35 AM
[2023-03-06] MEDS ORDERED: ASPIRIN 81 MG ECTAB PO SCH (09:00)
[2023-03-06] MEDS: ATORVASTATIN 40 MG TAB PO SCH (09:30)
[2023-03-06] MEDS: ASPIRIN 81 MG ECTAB PO SCH (09:30)
[2023-03-06] MEDS: FLUoxetine HCL 20 MG CAP PO SCH (09:30)
[2023-03-06] MEDS: PANTOprazole 40 MG TAB PO SCH (09:31)
[2023-03-06] MEDS: METOPROLOL SUCC 25MG EXT REL TAB PO SCH (09:31)
--- NOTE | 2023-03-06 11:39 | Electrocardiogram Report ---
Test Reason : Blood Pressure : / mmHG Vent. Rate : 123 BPM Atrial Rate : 123 BPM P-R Int : 152 ms QRS Dur : 126 ms QT Int : 338 ms P-R-T Axes : 004 -16 024 degrees QTc Int : 483 ms Sinus tachycardia Blocked PAC Right bundle branch block Abnormal ECG When compared with ECG of 11-FEB-2023 06:05, Vent. rate has increased BY 48 BPM Non-specific change in ST segment in Anterior leads Nonspecific T wave abnormality now evident in Inferior leads T wave inversion now evident in Anterior leads Confirmed by Vasquez Klein ([id number] on 03/06/2023 11:39:04 AM Referred By: REFERRED SELF Confirmed By:Vasquez Klein
--- NOTE | 2023-03-06 14:13 | Hospitalist Progress Note ---
Date of Service March 06, 2023 Assessment & Plan (1) Near syncope: Plan: Patient presents to the ED with complaints of lightheadedness and a near syncopal episode.. Patient has been having ongoing symptoms of generalized weakness associated with nausea vomiting and diarrhea with poor p.o. intake over the past 3 days. Patient also tested positive for COVID-19 infection in the ED Near syncope likely secondary to volume depletion from acute viral illness . Patient has been on diuretic therapy with torsemide and spironolactone that exacerbated volume depletion with ongoing GI losses Patient was given IV fluid Discontinue further IV fluids as he has a history of CHF. Recent echo from 02/11 was fairly unremarkable Repeat echocardiogram pending. CT of the head negative for any intracranial bleed or acute injury. Monitor hemodynamics closely Check orthostatic vital signs tomorrow Troponin not elevated will trend levels (2) Fall: Plan: Patient presents with fall secondary to near syncopal episode Patient reports right shoulder pain and has skin tear over the right elbow X-ray of the right shoulder does not reveal any fracture or dislocation CT head negative for any acute process and x-ray of the pelvis negative PT OT eval (3) COVID-19: Plan: Patient test positive for COVID-19 infection in the ED Chest x-ray does not show any acute infiltrates and pulse oximetry shows oxygen sats over 90 on room air Patient likely has nausea vomiting and diarrhea from acute illness related to COVID-19 infection Patient has mild hyponatremia likely secondary to volume depletion Hypokalemia mild-K levels repleted recheck levels in a.m. Continue supportive therapy (4) Nausea vomiting and diarrhea: Plan: Upper GI symptoms likely secondary to COVID-19 infection Discontinue IV fluids as symptoms seem to have resolved Antiemetics as needed (5) Hypertension: Plan: Continue metoprolol at home dose with hold parameters as patient has lightheadedness Monitor blood pressure titrate meds as tolerated (6) Hyperlipidemia: Plan: Continue statin therapy with atorvastatin (7) Chronic diastolic heart failure: Plan: Patient has known history of diastolic heart failure and is on diuretic therapy with spironolactone and torsemide at home hold diuretics in the setting of volume depletion and poor p.o. intake Discontinue IV fluids May consider resuming diuretics upon discharge provided orthostatic vital signs are negative Monitor input output closely (8) Diabetes mellitus type 2, insulin dependent: Plan: Patient will be placed on sliding scale with coverage with short acting insulin based on fingerstick monitoring Check hemoglobin A1c level, pending A1c from 11/22 was 6.6 (9) GERD (gastroesophageal reflux disease): Plan: Continue PPI therapy with Protonix Plan Likely discharge tomorrow Admission and Anticipated Discharge Date Admission Date: March 05, 2023 Subjective Patient says that he is still having diarrhea although the nurse states that he had a solid bowel movement. He does not feel dizzy or lightheaded at this time. Review of Systems Review of Systems: All systems reviewed & are unremarkable except as noted in Subjective Physical Exam Physical Exam: General: Awake, conversant Heart: S1, S2/regular rate and rhythm, no murmur rubs or gallops Lungs: Clear to auscultation bilaterally. Normal effort Abdomen: Soft/nontender/nondistended. No hepatosplenomegaly Extremities: No clubbing/cyanosis. No edema Behavior: Appropriate, cooperative Results & Data Results & Data Vital Signs (Past 12 Hours) Vital Signs Temp Pulse Pulse Resp BP Pulse Ox O2 Del Method 03/06/23 11:53 37.3 C 72 18 134/78 90 Room Air 03/06/23 06:06 77 03/06/23 07:18 36.7 C 101 H 20 138/77 99 Nasal Cannula 03/06/23 06:37 36.7 C 85 18 148/88 H 98 Nasal Cannula 03/06/23 05:36 Nasal Cannula 03/06/23 02:47 37.5 C 111 H 20 151/77 H 96 Nasal Cannula 03/06/23 03:16 114 H 03/06/23 03:48 37.5 C 111 H 20 151/77 H 96 Nasal Cannula O2 Flow Rate 03/06/23 11:53 03/06/23 06:06 03/06/23 07:18 2 03/06/23 06:37 2 03/06/23 05:36 2 03/06/23 02:47 2 03/06/23 03:16 03/06/23 03:48 2 Laboratory Results Abnormal lab results 03/05/23 03/05/23 03/05/23 Range/Units 18:59 19:10 19:10 WBC 12.55 H (4.8-10.8) K/ul Hgb 13.6 L (14.0-18.0) g/dl MCHC 31.2 L (32.0-36.0) g/dL RDW Std Deviation 56.2 H (36.4-46.3) fL RDW Coeff of Kartik 17.8 H (11.5-14.5) % Neut # (Auto) 8.44 H (1.40-6.50) K/uL Bent # (Auto) 2.02 H (0.11-0.59) K/uL Sodium 132 L (136-145) mmol/L Potassium 3.4 L (3.5-5.1) mmol/L BUN/Creatinine Ratio 7.0 L (10-20) Glucose 109 H (70-99(Fasting)) mg/dl POC Glucose (70-99) mg/dl Urine Glucose (UA) (Negative) Urine Blood (Negative) U Epithel Cells (Auto) (0-5) /lpf SARS-CoV-2, RNA, NAAT POSITIVE A* (NEGATIVE) 03/05/23 03/06/23 Range/Units 20:40 11:30 WBC (4.8-10.8) K/ul Hgb (14.0-18.0) g/dl MCHC (32.0-36.0) g/dL RDW Std Deviation (36.4-46.3) fL RDW Coeff of Kartik (11.5-14.5) % Neut # (Auto) (1.40-6.50) K/uL Bent # (Auto) (0.11-0.59) K/uL Sodium (136-145) mmol/L Potassium (3.5-5.1) mmol/L BUN/Creatinine Ratio (10-20) Glucose (70-99(Fasting)) mg/dl POC Glucose 108 H (70-99) mg/dl Urine Glucose (UA) 3+ H (Negative) Urine Blood Trace H (Negative) U Epithel Cells (Auto) 5-10 H (0-5) /lpf SARS-CoV-2, RNA, NAAT (NEGATIVE) Diagnostic Findings Head CT 03/05/23 18:44 CT head/brain wo con CLINICAL HISTORY: fall hit head Technique: Contiguous axial CT images of the head were acquired from the base of the skull to the vertex without intravenous contrast administration. Images were viewed in brain, subdural and bone windows. Automated dose lowering techniques and/or adjustment according to patient size were utilized for this exam. Comparison: Comparison is made to CT head 12/28/2021 Findings: Areas of decreased attenuation are present in the periventricular and subcortical white matter bilaterally consistent with small vessel ischemic disease. Generalized cerebral atrophy with commensurate enlargement of the ventricles, sulci, and cisterns is also present. There is no acute intracranial hemorrhage or evidence of acute territorial infarction. No shift of the midline structures, mass effect, or extra-axial abnormalities are shown. Atheroscler otic calcifications are present in the intracranial segments of the internal carotid arteries. Imaged portions of the paranasal sinuses and mastoid air cells are clear. The orbits appear normal. There are no acute fractures of the calvaria or scalp swelling. Impression: No acute intracranial hemorrhage, no evidence of acute territorial infarction or other acute intracranial disease process. ACT 112: Negative or not required by law. Electronically signed by: Colt Paula M.D. 03/05/2023 7:29 PM Pelvis X-Ray 03/05/23 18:44 XR pelvis 1-2V routine CLINICAL HISTORY: fall TECHNIQUE: A single frontal view of the pelvis was obtained. Comparison: Comparison is made to CT abdomen pelvis 02/02/2023 and hip radiograph 09/06/2019 FINDINGS: There is no evidence of an acute fracture. Bilateral total hip arthroplasties are seen. No soft tissue abnormality is seen. IMPRESSION: No evidence of acute osseous injury. ACT 112: Negative or not required by law. Electronically signed by: Colt Paula M.D. 03/06/2023 7:30 AM Shoulder X-Ray 03/05/23 18:44 XR shoulder RT min 2V routine CLINICAL HISTORY: fall, pain TECHNIQUE: 3 views of the right shoulder were obtained. Comparison: None available at the time of this dictation. FINDINGS: There is no evidence of an acute fracture. Degenerative changes are seen in the glenohumeral joint. The overlying soft tissues are unremarkable. The visualized portions of the lungs are clear. IMPRESSION: Degenerative changes without evidence of acute abnormality. ACT 112: Negative or not required by law. Electronically signed by: Colt Paula M.D. 03/06/2023 8:25 AM Chest X-Ray 03/05/23 18:45 XR chest 1V portable CLINICAL HISTORY: weakness TECHNIQUE: Single frontal radiograph of the chest was obtained. Comparison: Comparison is made to chest radiograph 02/10/2023 FINDINGS: Exam is limited by underpenetration. Calcified aortic knob is seen. The lungs are clear. No evidence of pleural effusion or pneumothorax. IMPRESSION: No acute chest disease. ACT 112: Negative or not required by law. Electronically signed by: Colt Paula M.D. 03/06/2023 8:35 AM PG Care Time/CCT Total # of Minutes Spent Total Time Spent with Patient: Total time spent is greater than 50% in coordination of care (as documented) at patient's floor/unit and/or counseling patient: Coding Level of Care Code 86699 SUB INP/OBS CARE 2/35MIN Diagnoses Near syncope R55 Fall W19.XXXA COVID-19 U07.1 Nausea vomiting and diarrhea R11.2; R19.7 Hypertension I10 Hypertension type: essential hypertension Hyperlipidemia E78.5 Hyperlipidemia type: unspecified Chronic diastolic heart failure I50.32 Diabetes mellitus type 2, insulin dependent E11.9; Z79.4 GERD (gastroesophageal reflux disease) K21.9 Esophagitis presence: esophagitis presence not specified (5) Hypertension Hypertension type: essential hypertension Qualified Code(s): I10 - Essential (primary) hypertension (6) Hyperlipidemia Hyperlipidemia type: unspecified Qualified Code(s): E78.5 - Hyperlipidemia, unspecified (9) GERD (gastroesophageal reflux disease) Esophagitis presence: esophagitis presence not specified Qualified Code(s): K21.9 - Gastro-esophageal reflux disease without esophagitis
[2023-03-06] MEDS ORDERED: traMADol HCL 50 MG TABLET PO STA (16:01)
[2023-03-06] MEDS ORDERED: METOPROLOL SUCC 50MG EXT REL TAB PO SCH (21:00)
--- NOTE | 2023-03-06 22:09 | CT Scan Report ---
Exam(s): CT LEFT HIP Without Contrast EXAM: CT Left Lower Extremity Without Intravenous Contrast, Hip CLINICAL HISTORY: Reason for exam: recent fall, pain, Xray negative. TECHNIQUE: Axial computed tomography images of the left hip without intravenous contrast. Automated exposure control was utilized for the study. A dose lowering technique was utilized adhering to the principles of ALARA. COMPARISON: 02/10/2023. FINDINGS: Bones/joints: Diffuse osteopenia/osteoporosis. Degenerative disease at the left SI joint . Left-sided hip prosthesis in place with normal alignment. No distinct fracture seen. Mild degenerative disease at the pubic symphysis otherwise normal left superior and inferior pubic rami with no acute fracture. Soft tissues: Unremarkable. IMPRESSION: Left-sided hip prosthesis in place with normal alignment. No distinct fracture or subluxation seen. Electronically signed by: Zoila Steven MD 03/06/23 22:08 PM
[2023-03-06] MEDS ORDERED: oxyCODONE HCL IR 5 MG TAB (IMMEDIATE RELEASE) PO STA (23:04)
[2023-03-07] MEDS: ACETAMINOPHEN 325 MG TAB PO PRN ×2 (02:17→09:41)
[2023-03-07] MEDS ORDERED: MELATONIN 3 MG TAB PO PRN (03:40)
[2023-03-07] MEDS: FLUoxetine HCL 20 MG CAP PO SCH (08:53)
[2023-03-07] MEDS: ASPIRIN 81 MG ECTAB PO SCH (08:54)
[2023-03-07] MEDS: PANTOprazole 40 MG TAB PO SCH (08:54)
[2023-03-07] MEDS: METOPROLOL SUCC 25MG EXT REL TAB PO SCH (08:54)
[2023-03-07] MEDS: ATORVASTATIN 40 MG TAB PO SCH (08:54)
[2023-03-07 08:56] LABS: Hematocrit (blood only) 45.5 % (42.0-52.0); Hemoglobin 13.9 g/dl (14.0-18.0); Mean Corpuscular Hemoglobin 26.9 pg (25.0-34.0); Mean Corpuscular Hgb Conc 30.5 g/dL (32.0-36.0); Mean Platelet Volume 10.1 fL (9.4-12.4); Platelet Count 254 K/uL (130-400); RDW Coefficient of Variation 18.1 % (11.5-14.5); RDW Standard Deviation 58.7 fL (36.4-46.3); Red Blood Count 5.17 M/uL (4.70-6.10); White Blood Count 10.49 K/ul (4.8-10.8)
[2023-03-07 09:19] LABS: BUN Creatinine Ratio 9.2 (10-20); Calcium 9.4 mg/dl (8.6-10.3); Creatinine Clr Calc Pharmacy 71.3 ml/min; Est GFR (African American) 68.1 ml/min; Est GFR (Non-African American) 58.8 ml/min
--- NOTE | 2023-03-07 12:15 | Discharge Summary ---
Date of Service March 07, 2023 Admission HPI Per Admitting Provider This is a 72-year-old male with past medical history significant history of hypertension, hyperlipidemia, gastroesophageal flux disease, diabetes mellitus, restrictive heart disease, who presents to the emergency department with complaints of lightheadedness and fall. Patient reports that he has been having ongoing complaints of nausea vomiting and diarrhea about 2- 3 episodes per day over the past 3 days. Patient reports feeling rundown with generalized weakness and has been having poor p.o. intake secondary to his GI symptoms. Patient reports that when he was trying to get up and walk a local gas station he felt lightheaded when he tried to ambulate and took a few steps backwards and fell over the concrete. Patient had struck his right elbow and his head over the concrete on the floor but did not reported losing consciousness and was aware of the situation. Patient was brought into ED for further evaluation. Patient had some skin tear over the right elbow area and had some headache symptoms but denies any chest pain or shortness of breath. No focal weakness reported. Further evaluation in the ED shows that his CT of the head did not show any evidence of acute traumatic injury or acute bleed. Patient was found to be COVID test positive and his white count was 12.5 but his metabolic panel and lactic acid were within normal limits. Chest x-ray preliminary report did not show any evidence of acute infiltrates and right shoulder x-ray did not show any fracture or dislocation. Patient given IV fluid bolus and patient continued to have severe generalized weakness and hence is being admitted for further management at this time . Admission Exam Per Admitting Provider Head and ENT no thyroid enlargement trachea midline Oral mucosa slightly dry Cardiovascular S1-S2 are normal no S3 Lungs bilateral air entry fair no wheezing Abdomen soft nondistended positive bowel sounds no rebound tenderness Extremity shows trace edema Neurologically no focal deficits Skin shows no rash no cyanosis Principal Diagnosis Near syncope and fall secondary to dehydration related to COVID diarrhea Discharge Exam General: Awake, conversant Heart: S1, S2/regular rate and rhythm, no murmur rubs or gallops Lungs: Clear to auscultation bilaterally. Normal effort Abdomen: Soft/nontender/nondistended. No hepatosplenomegaly Extremities: No clubbing/cyanosis. No edema Behavior: Appropriate, cooperative Discharge Data Allergies Allergy/AdvReac Type Severity Reaction Status Date / Time adhesive tape Allergy Mild Redness of Verified 02/15/23 12:19 Skin Iodinated Contrast Media AdvReac Intermediate Gastrointestinal Verified 02/15/23 12:19 Upset iodine AdvReac Unknown "iodine Verified 03/06/23 03:00 solution caused unknown" Consultations 03/05/23 20:48 ED Decision to Admit Stat Ordered Studies 03/05/23 18:44 CT head/brain wo con Stat 03/06/23 18:21 CT hip LT wo con Stat Hospital Course (1) Near syncope: Patient presents to the ED with complaints of lightheadedness and a near syncopal episode.. Patient has been having ongoing symptoms of generalized weakness associated with nausea vomiting and diarrhea with poor p.o. intake over the past 3 days. Patient also tested positive for COVID-19 infection in the ED Near syncope likely secondary to volume depletion from acute viral illness . Patient has been on diuretic therapy with torsemide and spironolactone that exacerbated volume depletion with ongoing GI losses Patient was given IV fluid Discontinued further IV fluids as he has a history of CHF. Recent echo from 02/[address] of the head negative for any intracranial bleed or acute injury. Orthostatic vital signs are negative today Patient is being discharged off of torsemide and spironolactone. He has a follow-up appointment set up with PCP in 2 days to decide if he can go back on his torsemide and spironolactone (2) Fall: Patient presents with fall secondary to near syncopal episode Patient reports right shoulder pain and has skin tear over the right elbow X-ray of the right shoulder does not reveal any fracture or dislocation CT head negative for any acute process and x-ray of the pelvis negative (3) COVID-19: Patient test positive for COVID-19 infection in the ED Chest x-ray does not show any acute infiltrates and pulse oximetry shows oxygen sats over 90 on room air Patient likely has nausea vomiting and diarrhea from acute illness related to COVID-19 infection Patient has mild hyponatremia likely secondary to volume depletion Hypokalemia mild-K levels repleted recheck levels in a.m. Continue supportive therapy (4) Nausea vomiting and diarrhea: Upper GI symptoms likely secondary to COVID-19 infection Discontinue IV fluids as symptoms seem to have resolved Antiemetics as needed (5) Hypertension: Continue metoprolol at home dose with hold parameters as patient has lightheadedness Monitor blood pressure titrate meds as tolerated (6) Hyperlipidemia: Continue statin therapy with atorvastatin (7) Chronic diastolic heart failure: Patient has known history of diastolic heart failure and is on diuretic therapy with spironolactone and torsemide at home hold diuretics in the setting of volume depletion and poor p.o. intake Discontinue IV fluids May consider resuming diuretics in 2 days by PCP Monitor input output closely (8) Diabetes mellitus type 2, insulin dependent: Patient will be placed on sliding scale with coverage with short acting insulin based on fingerstick monitoring Check hemoglobin A1c level, pending A1c from 11/22 was 6.6 (9) GERD (gastroesophageal reflux disease): Continue PPI therapy with Protonix Plan Morbid Obesity BMI 42 Total Time Total Time Spent Total Time Spent (In Minutes): 35 Discharge Plan Discharge Items Patient Disposition: Home - Self-Care Reason For Visit: NEAR SYNCOPE, FALL Discharge Diagnosis: near syncope, fall due to dehydration from Covid diarrhea Activity: Resume your previous activity Non-emergency contact: Primary Care Provider Call non-emergency contact if: you have any medication questions and your symptoms worsen Follow-up/Referrals: Melissa Frazier MD [Primary Care Provider] - 03/09/23 10:20 am Diet: Heart Healthy Addtl Attending Provider Instructions: Advised to follow-up with PCP in 1 week Advised to note that Torsemide and Aldactone have been held until you see your PCP. Pending Studies at Discharge: No Stand-Alone Forms: My [facility] Medications and DC Order Prescriptions: Continued cholecalciferol (vitamin D3) 50 mcg (2,000 unit) capsule 50 mcg PO BID Qty: 180 1RF cyanocobalamin (vitamin B-12) 2,500 mcg tablet 2,500 mcg PO DAILY 90 Days Qty: 90 1RF (DME) FreeStyle Shlomo 2 [place] Misc See Rx Instructions .Route Qty: 1 0RF Rx Instructions: As directed to check blood sugar (scan at least every 8 hours) (DME) pen needle, diabetic [BD Ultra-Fine Short Pen Needle] 31 gauge x 5/16" needle See Rx Instructions .Route Qty: 200 3RF Rx Instructions: Use with insulin pen twice daily Dx:E11.9 omeprazole 20 mg capsule,delayed release(DR/EC) 20 mg PO QAM Qty: 90 3RF insulin glargine [Basaglar KwikPen U-100 Insulin] 100 unit/mL (3 mL) insulin pen 40 unit subcut BID Qty: 45 3RF Rx Instructions: ON HOLD PER PT "MAKE BSG GO TOO LOW, STOPPED TAKING FOR NOW". INJECT 40 UNITS DAILY OR DIRECTED. (DME) FreeStyle Shlomo 2 Sensor Kit See Rx Instructions .ROUTE .COMPLEX Qty: 2 5RF Dose Instruction: DIRECTED TO CHECK BLOOD SUGARS CONTINUOUSLY (REPLACE EVERY 14 DAYS) Rx Instructions: DIRECTED TO CHECK BLOOD SUGARS CONTINUOUSLY (REPLACE EVERY 14 DAYS) atorvastatin 40 mg tablet 40 mg PO QAM Qty: 90 1RF prednisone 10 mg tablet See Rx Instructions PO DAILY Qty: 30 0RF Rx Instructions: 4 tabs for 3 days, then 3 tabs for 3 days, then 2 tabs for 3 days, then 1 tab for 3 days. PO DAILY; oxycodone 10 mg tablet 10 mg PO TID PRN (Reason: pain) Qty: 20 0RF semaglutide 1 mg/dose (4 mg/3 mL) pen injector 1 mg subcut WK Qty: 3 1RF Rx Instructions: Takes wed (DME) Oxygen Home Liters Per Minute See Rx Instructions .Route Qty: 1 0RF Rx Instructions: As directed fluoxetine 20 mg capsule 40 mg PO QAM Rx Instructions: TAKES 2 TABLETS DAILY metoprolol succinate 50 mg tablet extended release 24 hr See Rx Instructions .ROUTE .COMPLEX Rx Instructions: PER EXT MED HX--TAKES 75 MG QAM, THEN 50 MG QPM. diclofenac sodium [Voltaren Arthritis Pain] 1 % gel 4 g topical QID Qty: 100 2RF Rx Instructions: apply to single knee, ankle, foot; for foot includes sole/toes/top of foot (DME) Shower Chair [facility] [place] See Rx Instructions .Route Qty: 1 0RF Rx Instructions: Shower transfer bench-G62.9 aspirin [K[place]ton Low Dose Aspirin] 81 mg Tablet,Delayed Release (Dr/Ec) 162 mg PO QAM lorazepam 0.5 mg tablet 0.5 mg sublingual Q6H PRN (Reason: Anxiety) albuterol sulfate 90 mcg/actuation HFA aerosol inhaler 2 puff INHALATION Q4H PRN (Reason: Shortness Of Breath Or Wheezing) Jardiance 10 mg tablet 10 mg PO QAM Qty: 30 0RF Discontinued potassium chloride 20 mEq tablet extended release 20 meq PO QAM Qty: 90 3RF torsemide 100 mg tablet 100 mg PO QAM spironolactone 50 mg tablet 50 mg PO BID Rx Instructions: TAKES QAM AND 1300. Discharge Orders: Discharge Order (Routine); Ordered 03/07/23 Ordered By: Dodie Abreu Admission Data Admit Date/Time: 03/05/23 23:44 Attending Provider: Dodie Abreu Admit Provider: Yohan Cesar Primary Care Provider: Melissa Frazier Other Providers: Yohan Cesar Other Interventions: Discharge Summary Assessment (RN) Last Done: 03/07/23 12:26 Coding Level of Care Code 93423 INP/OBS DISCH >30 MIN Diagnoses Near syncope R55 Fall W19.XXXA COVID-19 U07.1 Nausea vomiting and diarrhea R11.2; R19.7 Hypertension I10 Hypertension type: essential hypertension Hyperlipidemia E78.5 Hyperlipidemia type: unspecified Chronic diastolic heart failure I50.32 Diabetes mellitus type 2, insulin dependent E11.9; Z79.4 GERD (gastroesophageal reflux disease) K21.9 Esophagitis presence: esophagitis presence not specified
== END 2023-03-07 13:14 | disposition home or self-care (01) | DRG 178 ==
LOC: ED 18:33 → SUATTDRO 03-06 → 2S 03-06

== ENCOUNTER 2024-01-22 14:50 | Observation (INO) ==
--- NOTE | 2024-01-22 18:02 | Emergency Department Note ---
History of Present Illness General Chief complaint: Referred by Doctor Stated complaint: THROWING UP/REFERRED BY DR Time Seen by Provider: 01/22/24 17:35 Source: patient, family ( was at the bedside), RN notes reviewed and old records reviewed (01/22/24-primary care office visit for abdominal pain) Mode of arrival: ambulatory Limitations: no limitations History of Present Illness Maximum Pain Intensity: 8 This patient 78-year-old male who comes in after having continuation of symptoms he was seen here recently and follow-up with his doctor today they sent him back to the ER he says he continues to have epigastric abdominal pain he has a temperature up to 100.9 has had vomiting he cannot anything he is diffusely weak. No dysuria or hematuria. He has had some chest pain at times for 3 days. no bowel movement for 3 days decreased appetite. he has headache and feels weak all over. no fall or trauma occasional cough. No sick contacts. Home Medications Medication Instructions Recorded Confirmed Type aspirin 81 mg tablet,delayed 162 mg PO QAM 01/16/21 01/22/24 History release (Kelton Low Dose Aspirin) albuterol sulfate 90 mcg/actuation 2 puff inhalation Q4H PRN 12/26/21 01/22/24 History aerosol inhaler Shortness Of Breath Or Wheezing lorazepam 0.5 mg tablet 0.5 mg sublingual Q6H PRN Anxiety 12/26/21 01/22/24 History empagliflozin 10 mg tablet 10 mg PO QAM #30 tabs 01/22/22 01/22/24 Rx (Jardiance) Oxygen Home E0424 #1 ea 05/31/22 01/22/24 Rx flash glucose scanning reader #1 ea 06/02/22 01/22/24 Rx (FreeStyle Shlomo 2 Halbur) pen needle, diabetic 31 gauge x #200 ea 06/13/22 01/12/24 Rx 5/16" (BD Ultra-Fine Short Pen Needle) fluoxetine 20 mg capsule 40 mg PO QAM 01/06/23 01/22/24 History Shower Chair #1 ea 02/15/23 01/12/24 Rx ketoconazole 2 % topical cream 1 applic topical DAILY #30 grams 08/01/23 01/22/24 Rx flash glucose sensor (FreeStyle #2 KITS 10/04/23 01/22/24 Rx Shlomo 2 Sensor kit) furosemide 20 mg tablet 100 mg PO DAILY 10/18/23 01/22/24 History ondansetron HCl 4 mg tablet 4 mg PO Q6H PRN NAUSEA/VOMITING 10/18/23 01/22/24 History semaglutide 2 mg/dose (8 mg/3 mL) 2 mg (0.75 mL) subcut WK #3 mL 10/18/23 01/22/24 Rx subcutaneous pen injector (Ozempic) spironolactone 50 mg tablet 50 mg PO BID #180 tabs 10/24/23 01/22/24 Rx omeprazole 20 mg capsule,delayed 20 mg PO QAM #90 caps 11/06/23 01/22/24 Rx release metoprolol succinate 25 mg 25 mg PO DAILY #90 tabs 11/24/23 01/22/24 Rx tablet,extended release 24 hr celecoxib 200 mg capsule (Celebrex) 200 mg PO DAILY #7 caps 01/12/24 01/20/24 Rx atorvastatin 40 mg tablet 40 mg PO QAM #90 tabs 01/17/24 01/22/24 Rx diclofenac sodium 1 % topical gel 4 g topical QID PRN Pain 01/20/24 01/22/24 History (Voltaren Arthritis Pain) Allergies Allergy/AdvReac Type Severity Reaction Status Date / Time adhesive tape Allergy Mild Redness of Verified 01/22/24 14:11 Skin Iodinated Contrast Media AdvReac Intermediate Gastrointestinal Verified 01/22/24 14:11 Upset iodine AdvReac Unknown "iodine Verified 01/22/24 14:11 solution caused unknown" Past Med/Surg History Medical History Hypertension History of septic arthritis History of pressure ulcer rt ankle stage 2 COVID-19 Right knee pain Hypoxia Diabetes mellitus type 2, insulin dependent Restrictive lung disease secondary to obesity Morbid obesity Degenerative disc disease Osteoarthritis BPH (benign prostatic hyperplasia) Anxiety and depression Hyperlipidemia Hypertension Chronic diastolic heart failure, NYHA class 3 Nonobstructive atherosclerosis of coronary artery H/O deep venous thrombosis 5+ yrs ago s/p fall Pulmonary emphysema GERD (gastroesophageal reflux disease) Sleep apnea BIPAP Restrictive cardiomyopathy Surgical History History of open reduction and internal fixation (ORIF) procedure LEFT WRIST (HARDWARE REMOVED) 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) History of esophagogastroduodenoscopy (EGD) History of herniorrhaphy multiple History of tooth extraction History of cataract surgery RT/LEFT Difficult intubation "Elective" glidescope noted on 08/2018 [facility] record Status post total hip replacement, left History of colonoscopy History of arthroscopy RIGHT SHOULDER Hx of transurethral resection of prostate History of total knee replacement RIGHT/LEFT History of cardiac cath MULTIPLE (NO STENTS PLACED) MOST RECENT= 2017 S/P cholecystectomy Family History Mother Stroke Alzheimer disease Father MVA (motor vehicle accident) Sister Breast cancer Daughter Brain tumor Denies family history of Ovarian cancer Prostate cancer Myocardial infarction Colorectal cancer Social History Smoking Status: Former smoker Tobacco Type: Cigarettes Age Started Using Tobacco: 18; Age Quit Using Tobacco: 30; Cigarettes Per Day: 1-2 ppd; Second Hand Exposure: No; Do You Dip or Chew Tobacco: No; Hx Alcohol Use: No Hx Substance Use: No Preferred Language: Croatian Communication Ability: Effective Visual Impairment: No Limitations Hearing Ability: Normal Charger Tester Required: No Beliefs That Will Affect Care: None marital status: Current Living Situation: Spouse Current Living Situation Comment: with Bridgett current occupational status: retired 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[employer], 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, 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 How many Children do You have: 2 Feels Safe at Home: Yes Childhood Exposure to Second-Hand Smoke: No Diet: regular Diet Comment: regular Dental Care, Regularly: Yes Physical Activity Frequency: Does not Exercise Seatbelt Use: sometimes Sunscreen Use: No Assistive Devices: Cane, Denture - Upper, Glasses, Oxygen - at Night and Walker Review of Systems A total of 10 systems reviewed and were otherwise negative Physical Exam Vital Signs Vital Signs - 24 hr 01/22/24 15:00 01/22/24 18:30 01/22/24 18:32 Temperature 37.8 C H Temperature Source Temporal Artery Scan Pulse Rate 107 H Pulse Rate [Apical] 78 Pulse Rate from SpO2 Sensor Pulse Rhythm [Apical] Pulse Strength [Apical] Respiratory Rate 22 20 Respiratory Effort / Characteristics Non-Labored Spontaneous Non-Labored Respiratory Depth Normal Normal Respiratory Pattern Blood Pressure 100/67 Blood Pressure [Right Arm] 129/72 Blood Pressure Mean 78 Blood Pressure Mean [Right Arm] 91 Blood Pressure Position [Right Arm] Pulse Oximetry 93 89 L 89 L Oxygen Delivery Method Room Air Room Air Sepsis Recent Fever Within 48 Hours No Sepsis New/Unexplained Change in Mental Status No Sepsis Action Taken by Nursing No Action Required 01/22/24 18:56 01/22/24 19:15 01/22/24 19:16 Temperature Temperature Source Pulse Rate 101 H 107 H Pulse Rate [Apical] 105 H Pulse Rate from SpO2 Sensor 96 H Pulse Rhythm [Apical] Regular Pulse Strength [Apical] Normal Respiratory Rate 20 22 Respiratory Effort / Characteristics Non-Labored Respiratory Depth Normal Respiratory Pattern Regular Blood Pressure Blood Pressure [Right Arm] 115/76 Blood Pressure Mean Blood Pressure Mean [Right Arm] 89 Blood Pressure Position [Right Arm] Sitting Pulse Oximetry 92 93 Oxygen Delivery Method Room Air Room Air Sepsis Recent Fever Within 48 Hours Sepsis New/Unexplained Change in Mental Status Sepsis Action Taken by Nursing 01/22/24 20:30 01/22/24 21:00 01/22/24 21:02 Temperature Temperature Source Pulse Rate 104 H 101 H 100 H Pulse Rate [Apical] Pulse Rate from SpO2 Sensor 109 H 107 H 106 H Pulse Rhythm [Apical] Pulse Strength [Apical] Respiratory Rate 22 21 20 Respiratory Effort / Characteristics Respiratory Depth Respiratory Pattern Blood Pressure 105/67 113/61 Blood Pressure [Right Arm] Blood Pressure Mean 79 78 Blood Pressure Mean [Right Arm] Blood Pressure Position [Right Arm] Pulse Oximetry 93 93 93 Oxygen Delivery Method Room Air Room Air Room Air Sepsis Recent Fever Within 48 Hours Sepsis New/Unexplained Change in Mental Status Sepsis Action Taken by Nursing 01/22/24 21:30 01/22/24 22:00 01/22/24 22:30 Temperature Temperature Source Pulse Rate 93 H 97 H 94 H Pulse Rate [Apical] Pulse Rate from SpO2 Sensor 87 80 90 Pulse Rhythm [Apical] Pulse Strength [Apical] Respiratory Rate 22 20 19 Respiratory Effort / Characteristics Respiratory Depth Respiratory Pattern Blood Pressure 106/58 L 91/66 L 95/64 L Blood Pressure [Right Arm] Blood Pressure Mean 74 74 74 Blood Pressure Mean [Right Arm] Blood Pressure Position [Right Arm] Pulse Oximetry 91 91 93 Oxygen Delivery Method Room Air Room Air Room Air Sepsis Recent Fever Within 48 Hours Sepsis New/Unexplained Change in Mental Status Sepsis Action Taken by Nursing General: Well developed well nourished older male who is mildly ill-appearing but in no acute distress, breathing comfortably on room air. Normal speech HEENT: Normal cephalic atraumatic. Pupils are equal round and reactive to light. Extraocular movements are intact. Oropharynx is pink with moist mucous membranes. No swelling of the mouth lips or tongue. Neck: Supple with a midline trachea. No meningeal signs or stiffness, no JVD or bruits. No Stridor. Chest: Clear to auscultation bilaterally. No wheezes or rhonchi. No increased work of breathing. Heart: Regular rate and rhythm without murmurs or gallops. Abdomen: Soft, mildly diffusely tender, nondistended without rebound guarding or rigidity. Extremities: No cyanosis clubbing or edema. No calf tenderness or assymetry Spine/Back. Non tender to palpation. No CVA tenderness Skin: Good turgor without rashes. Neurologic exam: Cranial nerves two through 12 are intact. Motor and sensation are intact and symmetrical throughout. Course Administered Medications Discontinued Medications Acetaminophen (Acetaminophen 325 Mg Tab) 650 mg PO NOW STA Stop: 01/22/24 20:25 Last Admin: 01/22/24 21:01 Dose: 650 mg Documented By: COMFORT Sodium Chloride (Nss) 500 mls @ 999 mls/hr IV .Q31M ONE Stop: 01/22/24 19:51 Last Infusion: 01/22/24 21:01 Dose: Infused Documented By: Admin: 01/22/24 19:56 Dose: 999 mls/hr Documented By: COMFORT Cefepime HCl (Maxipime) 2,000 mg in 20 mls @ 5 mls/min IV NOW STA; Protocol Stop: 01/22/24 19:24 Last Admin: 01/22/24 19:56 Dose: 5 mls/min Documented By: COMFORT Medical Decision Making Differential Diagnosis Sepsis, viral illness, intra-abdominal process, pneumonia, cardiac disease, electrolyte or metabolic abnormality, Medical Records Attestation: I reviewed the patient's medical records. Home Medications Current Medication List: was personally reviewed by me Laboratory Data Attestation: I reviewed the patient's lab results. 01/22/24 18:23 01/22/24 18:23 Lab Results 01/22/24 01/22/24 01/22/24 Range/Units 18:23 19:05 Unknown WBC 13.58 H (4.8-10.8) K/ul RBC 5.68 (4.70-6.10) M/uL Hgb 15.2 (14.0-18.0) g/dl Hct 49.0 (42.0-52.0) % MCV 86.3 (80.0-100.0) fL MCH 26.8 (25.0-34.0) pg MCHC 31.0 L (32.0-36.0) g/dL RDW Std Deviation 47.8 H (36.4-46.3) fL RDW Coeff of Kartik 15.1 H (11.5-14.5) % Plt Count 261 (130-400) K/uL MPV 10.7 (9.4-12.4) fL Immature Gran % (Auto) 0.8 % Neut % (Auto) 67.0 % Lymph % (Auto) 15.8 % [place] % (Auto) 14.9 % Eos % (Auto) 1.1 % Baso % (Auto) 0.4 % Neut # (Auto) 9.09 H (1.40-6.50) K/uL Lymph # (Auto) 2.14 (1.20-3.40) K/uL [place] # (Auto) 2.03 H (0.11-0.59) K/uL Eos # (Auto) 0.15 (0.00-0.50) K/uL Baso # (Auto) 0.06 (0.00-0.20) K/uL Immature Gran # (Auto) 0.11 (0.01-0.20) K/uL Sodium 132 L (136-145) mmol/L Potassium 3.4 L (3.5-5.1) mmol/L Chloride 93 L (98-107) mmol/L Carbon Dioxide 31 (21-32) mmol/L Anion Gap 8 (3-11) BUN 17 (6-23) mg/dl Creatinine 1.48 H (0.6-1.4) mg/dl Est Cr Clr Drug Dosing 58.2 ml/min Est GFR ( Amer) 52.5 ml/min Est GFR (Non-Af Amer) 45.3 ml/min BUN/Creatinine Ratio 11.5 (10-20) Glucose 112 H (70-99(Fasting)) mg/dl Lactate 1.8 (0.4-2.0) mmol/L Calcium 10.1 (8.6-10.3) mg/dl Magnesium 2.2 (1.7-2.4) mg/dl Total Bilirubin 0.6 (0.2-1.0) mg/dl Direct Bilirubin 0.1 (0-0.2) mg/dl AST 14 (13-39) U/L ALT 14 (7-52) U/L Alkaline Phosphatase 79 (34-104) U/L Troponin I High Sens 10.0 (0-20) pg/ml Total Protein 7.9 (6.0-8.3) gm/dl Albumin 4.1 (3.4-5.0) gm/dl Lipase 54 (11-82) U/L Procalcitonin 0.21 (0-0.5) ng/ml Urine Color Yellow Urine Appearance Clear (Clear) Urine pH 6.5 (4.5-7.5) Ur Specific [place] 1.027 (1.000-1.030) Urine Protein 2+ H (Negative) Urine Glucose (UA) 3+ H (Negative) Urine Ketones Negative (Negative) Urine Blood Trace H (Negative) Urine Nitrite Negative (Negative) Urine Bilirubin Negative (Negative) Urine Urobilinogen Negative (Negative) Ur Leukocyte Esterase Negative (Negative) Urine WBC (Auto) 6-10 H (0-5) /hpf Urine RBC (Auto) 3-5 H (0-2) /hpf U Hyaline Cast (Auto) 0-2 (0-2) /lpf U Epithel Cells (Auto) 0-2 (0-2) /hpf Urine Bacteria (Auto) None Seen (None Seen) Adenovirus (PCR) Not Detected (NotDetected) Anaplasma Smear See Comment Babesia Smear See Comment B. pertussis DNA (PCR) Not Detected (NotDetected) B.parapertussis DNA PCR Not Detected (NotDetected) C. pneumoniae DNA (PCR) Not Detected (NotDetected) Coronavirus OC43 (PCR) Not Detected (NotDetected) Coronavirus HKU1 (PCR) Not Detected (NotDetected) Coronavirus 229E (PCR) Not Detected (NotDetected) SARS-CoV-2 (PCR) Not Detected (NotDetected) Coronavirus NL63 (PCR) Not Detected (NotDetected) Human Metapneumovir PCR Not Detected (NotDetected) Influenza Type A (PCR) Not Detected (NotDetected) Influenza Type B (PCR) Not Detected (NotDetected) M. pneumoniae (PCR) Not Detected (NotDetected) Parainfluenza 1 (PCR) Not Detected (NotDetected) Parainfluenza 2 (PCR) Not Detected (NotDetected) Parainfluenza 3 (PCR) Not Detected (NotDetected) Parainfluenza 4 (PCR) Not Detected (NotDetected) RSV (PCR) Not Detected (NotDetected) Entero/Rhino (PCR) Not Detected (NotDetected) Imaging Data Attestation: I personally reviewed and interpreted this imaging study as follows: My Impression: Chest x-rayno acute infiltrate, failure, pneumothorax seen Radiologist's Impression: Chest X-Ray 01/22/24 17:54 XR chest 1V portable HISTORY: 78 years-old Male Sepsis acute sepsis COMPARISON: 01/20/2024 TECHNIQUE: AP view the chest FINDINGS: Cardiac silhouette is enlarged. Atherosclerosis of the aorta. Subsegmental bibasilar atelectasis without pneumothorax, pleural effusion or pulmonary edema. Bones appear grossly intact. IMPRESSION: Cardiomegaly without acute process. ACT 112: Negative or not required by law. The above report was generated using voice recognition software. It may contain grammatical, syntax or spelling errors. Electronically signed by: Gurvinder Ritchie M.D. 01/22/2024 6:31 PM Abdomen/Pelvis CT 01/22/24 19:18 Exam(s): CT ABDOMEN + PELVIS Without Contrast EXAM: CT Abdomen and Pelvis Without Intravenous Contrast CLINICAL HISTORY: Reason for exam: ABD PAIN, VOMITING. TECHNIQUE: Axial computed tomography images of the abdomen and pelvis without intravenous contrast. CTDI is 28.14 mGy and DLP is 1408.89 mGy-cm. Automated exposure control was utilized for the study. A dose lowering technique was utilized adhering to the principles of ALARA. COMPARISON: 01/20/2024. FINDINGS: Lung bases: Unremarkable. No mass. No consolidation. Heart: Unremarkable. No cardiomegaly. No significant pericardial effusion. Normal cardiac size. ABDOMEN: Liver: Unremarkable. Gallbladder and bile ducts: Status post cholecystectomy. No ductal dilation. Pancreas: Unremarkable. No ductal dilation. Spleen: Unremarkable. No splenomegaly. Adrenals: Unremarkable. No mass. Kidneys and ureters: Right lower renal pole simple cyst measuring 2.5 cm. Otherwise normal right kidney. Left upper renal pole simple cyst measuring 1.6 cm, otherwise normal left kidney. No obstructing stones. No hydronephrosis. Stomach and bowel: Unremarkable. No obstruction. No mucosal thickening. PELVIS: Appendix: Normal appendix. Bladder: Unremarkable. No stones. Reproductive: Unremarkable as visualized. ABDOMEN and PELVIS: Intraperitoneal space: Unremarkable. No free air. No significant fluid collection. Bones/joints: Bilateral hip prosthesis in place with obscuration of the pelvic structures from being hardening artifact. Multilevel degenerative disease of the spine. No acute fracture. No dislocation. Soft tissues: Status post right anterior paracentral ventral hernia repair. Vasculature: Mild atherosclerotic disease of aorta with no aneurysm. Lymph nodes: Unremarkable. No enlarged lymph nodes. IMPRESSION: 1. No acute appendicitis or bowel obstruction. No focal inflammatory process throughout the gastrointestinal tract. 2. Status post cholecystectomy. Nonspecific bilateral simple renal cysts with no further follow-up imaging recommended. Remainder of abdominal discharge unremarkable. Electronically signed by: Zoila Steven MD 01/22/24 21:06 PM ECG Data Attestation: I personally reviewed and interpreted this ECG as follows: Indication: + chest pain Rate (beats per minute): 105 Rhythm: + sinus tachycardia ECG Intervals/blocks: + Right Bundle branch block ECG [place]: + Normal ECG ST segments: + Normal ST segments ECG Findings: + PACs; no PVCs Comparison ECG Date: from (01/20/24) Change: no significant change MDM Narrative This patient comes in described above he has ongoing symptoms and was referred back to the ER after having extensive workup the other day. He does have a temperature and he may have influenza or viral illness but I am worried about sepsis I did a full sepsis type workup. He did have a CAT scan done the other day and asked the radiologist to review this. He was seen out in triage as we were short on beds I wanted expedite his care. I did not initially give him IV fluids because he tells me his history of CHF and was normotensive. His EKG initially shows no ischemic changes no change compared to old. When he was moved back from triage his blood pressure was low in the 80s briefly but came up I did give him 500 cc normal saline bolus based on this I am concerned that he could have sepsis or infection as he has ongoing issues with a fever I did give him cefepime for broad spectrum coverage his lactic acid here is normal I did have Dr. Caal look at his abdominal scan from the other day and he said it looked normal I repeated the scan today and was also normal. I have discussed the case at length with Tierra Restrepo and she saw the patient in the ER and will admit him for further treatment and evaluation as he said concern for sepsis and ongoing weakness. Continuous administrative resources associate: Orders placed in EMR for continuous administrative resources associate. upon my evaluation, noted to be in sinus tachycardia with a rate of 100. Impression & Plan Abdominal pain, Sepsis, Nausea & vomiting, Weakness Discharge Plan Visit Data Chief Complaint: Referred by Doctor Stated Complaint: THROWING UP/REFERRED BY ED Provider: Joaquim Wilkes Discharge Problem: Abdominal pain, Sepsis, Nausea & vomiting, Weakness Forms Stand Alone Forms: My [facility] Prescriptions Prescriptions: No Action (DME) FreeStyle Shlomo 2 Halbur Misc See Rx Instructions .Route Qty: 1 0RF Rx Instructions: As directed to check blood sugar (scan at least every 8 hours) (DME) pen needle, diabetic [BD Ultra-Fine Short Pen Needle] 31 gauge x 5/16" needle See Rx Instructions .Route Qty: 200 3RF Rx Instructions: Use with insulin pen twice daily Dx:E11.9 (DME) FreeStyle Shlomo 2 Sensor Kit See Rx Instructions .ROUTE .COMPLEX Qty: 2 5RF Dose Instruction: DIRECTED TO CHECK BLOOD SUGARS CONTINUOUSLY (REPLACE EVERY 14 DAYS) Rx Instructions: DIRECTED TO CHECK BLOOD SUGARS CONTINUOUSLY (REPLACE EVERY 14 DAYS) spironolactone 50 mg tablet 50 mg PO BID Qty: 180 1RF omeprazole 20 mg capsule,delayed release(DR/EC) 20 mg PO QAM Qty: 90 3RF metoprolol succinate 25 mg tablet extended release 24 hr 25 mg PO DAILY Qty: 90 1RF atorvastatin 40 mg tablet 40 mg PO QAM Qty: 90 1RF (DME) Oxygen Home E0424 Liters Per Minute See Rx Instructions .Route Qty: 1 0RF Rx Instructions: As directed ondansetron HCl 4 mg tablet 4 mg PO Q6H PRN (Reason: NAUSEA/VOMITING) furosemide 20 mg tablet 100 mg PO DAILY Ozempic 2 mg/dose (8 mg/3 mL) pen injector 2 mg subcut WK Qty: 3 5RF ketoconazole 2 % cream 1 applic topical DAILY Qty: 30 1RF fluoxetine 20 mg capsule 40 mg PO QAM Rx Instructions: TAKES 2 TABLETS DAILY (DME) Shower Chair Misc See Rx Instructions .Route Qty: 1 0RF Rx Instructions: Shower transfer bench-G62.9 celecoxib [Celebrex] 200 mg capsule 200 mg PO DAILY Qty: 7 0RF aspirin [Kelton Low Dose Aspirin] 81 mg Tablet,Delayed Release (Dr/Ec) 162 mg PO QAM lorazepam 0.5 mg tablet 0.5 mg sublingual Q6H PRN (Reason: Anxiety) albuterol sulfate 90 mcg/actuation HFA aerosol inhaler 2 puff INHALATION Q4H PRN (Reason: Shortness Of Breath Or Wheezing) Jardiance 10 mg tablet 10 mg PO QAM Qty: 30 0RF diclofenac sodium [Voltaren Arthritis Pain] 1 % gel 4 g topical QID PRN (Reason: Pain) Referrals Referrals: Melissa Frazier MD [Primary Care Provider] - Discharge Problem: Abdominal pain Qualifiers: Abdominal location: epigastric Qualified Code(s): R10.13 - Epigastric pain Sepsis Qualifiers: Sepsis type: sepsis due to unspecified organism Sepsis acute organ dysfunction status: unspecified Qualified Code(s): A41.9 - Sepsis, unspecified organism Nausea & vomiting Qualifiers: Vomiting type: unspecified Qualified Code(s): R11.2 - Nausea with vomiting, unspecified
--- NOTE | 2024-01-22 18:33 | XRay Report ---
XR chest 1V portable HISTORY: 78 years-old Male Sepsis acute sepsis COMPARISON: 01/20/2024 TECHNIQUE: AP view the chest FINDINGS: Cardiac silhouette is enlarged. Atherosclerosis of the aorta. Subsegmental bibasilar atelectasis with out pneumothorax, pleural effusion or pulmonary edema. Bones appear grossly intact. IMPRESSION: Cardiomegaly without acute process. ACT 112: Negative or not required by law. The above report was generated using voice recognition software. It may contain grammatical, syntax o r spelling errors. Electronically signed by: Gurvinder Ritchie M.D. 01/22/2024 6:31 PM
[2024-01-22 19:00] LABS: Basophils # (auto) 0.06 K/uL (0.00-0.20); Basophils % (auto) 0.4 %; Eosinophils # (auto) 0.15 K/uL (0.00-0.50); Eosinophils % (auto) 1.1 %; Hemoglobin 15.2 g/dl (14.0-18.0); Immature Granulocytes # (auto) 0.11 K/uL (0.01-0.20); Immature Granulocytes % (auto) 0.8 %; Lymphocytes # (auto) 2.14 K/uL (1.20-3.40); Lymphocytes % (auto) 15.8 %; Mean Corpuscular Hemoglobin 26.8 pg (25.0-34.0); Mean Corpuscular Volume 86.3 fL (80.0-100.0); Mean Platelet Volume 10.7 fL (9.4-12.4); Monocytes # (auto) 2.03 K/uL (0.11-0.59); Monocytes % (auto) 14.9 %; Neutrophils # (auto) 9.09 K/uL (1.40-6.50); Platelet Count 261 K/uL (130-400); RDW Coefficient of Variation 15.1 % (11.5-14.5); RDW Standard Deviation 47.8 fL (36.4-46.3); Red Blood Count 5.68 M/uL (4.70-6.10); White Blood Count 13.58 K/ul (4.8-10.8)
[2024-01-22 19:03] LABS: Appearance Urine Clear (Clear); Bacteria Urine Automated None Seen (None Seen); Bilirubin Urine Negative (Negative); Blood Urine Trace (Negative); Cast Urine Automated 0-2 /lpf (0-2); Color Urine Yellow; Epithelial Cell Urine Auto 0-2 /hpf (0-2); Glucose Urine UA 3+ (Negative); Ketones Urine Negative (Negative); Leukocyte Esterase Urine Negative (Negative); Nitrite Urine Negative (Negative); Protein Urine 2+ (Negative); Specific Gravity Urine 1.027 (1.000-1.030); Urobilinogen Urine Negative (Negative); pH Urine 6.5 (4.5-7.5)
[2024-01-22 19:15] LABS: Albumin Level 4.1 gm/dl (3.4-5.0); BUN Creatinine Ratio 11.5 (10-20); Bilirubin Direct 0.1 mg/dl (0-0.2); Bilirubin,Total 0.6 mg/dl (0.2-1.0); Calcium 10.1 mg/dl (8.6-10.3); Creatinine Clr Calc Pharmacy 58.2 ml/min; Est GFR (African American) 52.5 ml/min; Est GFR (Non-African American) 45.3 ml/min; Magnesium 2.2 mg/dl (1.7-2.4); Potassium 3.4 mmol/L (3.5-5.1); Total Protein 7.9 gm/dl (6.0-8.3)
[2024-01-22 19:45] LABS: Adenovirus PCR Not Detected (NotDetected); Bordetella parapertussis PCR Not Detected (NotDetected); Bordetella pertussis PCR Not Detected (NotDetected); Chlamydia pneumoniae PCR Not Detected (NotDetected); Coronavirus 229E PCR Not Detected (NotDetected); Coronavirus CoV-2 (COVID19)PCR Not Detected (NotDetected); Coronavirus HKU1 PCR Not Detected (NotDetected); Coronavirus NL63 PCR Not Detected (NotDetected); Coronavirus OC43PCR Not Detected (NotDetected); Human Metapneumovirus PCR Not Detected (NotDetected); Influenza A PCR Not Detected (NotDetected); Influenza B PCR Not Detected (NotDetected); Mycoplasma pneumoniae PCR Not Detected (NotDetected); Parainfluenza Virus 1 PCR Not Detected (NotDetected); Parainfluenza Virus 2 PCR Not Detected (NotDetected); Parainfluenza Virus 3 PCR Not Detected (NotDetected); Parainfluenza Virus 4 PCR Not Detected (NotDetected); Respiratory Syncytial VirusPCR Not Detected (NotDetected); Rhinovirus/Enterovirus PCR Not Detected (NotDetected)
[2024-01-22] MEDS: SODIUM CHLORIDE 0.9% 500 ML IV ONE (19:56)
[2024-01-22] MEDS: CEFEPIME 2,000 MG/20 ML VIAL IV STA (19:56)
[2024-01-22] MEDS: ACETAMINOPHEN 325 MG TAB PO STA (21:01)
--- NOTE | 2024-01-22 21:07 | CT Scan Report ---
Exam(s): CT ABDOMEN + PELVIS Without Contrast EXAM: CT Abdomen and Pelvis Without Intravenous Contrast CLINICAL HISTORY: Reason for exam: ABD PAIN, VOMITING. TECHNIQUE: Axial computed tomography images of the abdomen and pelvis without intravenous contrast. CTDI is 28.14 mGy and DLP is 1408.89 mGy-cm. Automated exposure control was utilized for the study. A dose lowering technique was utilized adhering to the principles of ALARA. COMPARISON: 01/20/2024. FINDINGS: Lung bases: Unremarkable. No mass. No consolidation. Heart: Unremarkable. No cardiomegaly. No significant pericardial effusion. Normal cardiac size. ABDOMEN: Liver: Unremarkable. Gallbladder and bile ducts: Status post cholecystectomy. No ductal dilation. Pancreas: Unremarkable. No ductal dilation. Spleen: Unremarkable. No splenomegaly. Adrenals: Unremarkable. No mass. Kidneys and ureters: Right lower renal pole simple cyst measuring 2.5 cm. Otherwise normal right kidney. Left upper renal pole simple cyst measuring 1.6 cm, otherwise normal left kidney. No obstructing stones. No hydronephrosis. Stomach and bowel: Unremarkable. No obstruction. No mucosal thickening. PELVIS: Appendix: Normal appendix. Bladder: Unremarkable. No stones. Reproductive: Unremarkable as visualized. ABDOMEN and PELVIS: Intraperitoneal space: Unremarkable. No free air. No significant fluid collection. Bones/joints: Bilateral hip prosthesis in place with obscuration of the pelvic structures from being hardening artifact. Multilevel degenerative disease of the spine. No acute fracture. No dislocation. Soft tissues: Status post right anterior paracentral ventral hernia repair. Vasculature: Mild atherosclerotic disease of aorta with no aneurysm. Lymph nodes: Unremarkable. No enlarged lymph nodes. IMPRESSION: 1. No acute appendicitis or bowel obstruction. No focal inflammatory process throughout the gastrointestinal tract. 2. Status post cholecystectomy. Nonspecific bilateral simple renal cysts with no further follow-up imaging recommended. Remainder of abdominal discharge unremarkable. Electronically signed by: Zoila Steven MD 01/22/24 21:06 PM
--- NOTE | 2024-01-22 21:38 | History & Physical Report ---
Date of Service January 22, 2024 Assessment & Plan (1) Nausea & vomiting: Plan: Etiology unclear - suspect infection, patient with elevated temperature and tachycardia on arrival. He has been following with Hematology for his chronically elevated WBC count - unsure of cause, states he was not told that it was cancer of any kind. Unclear infection source - CXR, UA do not suggest infection. -Check urine culture -Check ESR and CRP -Check Lyme panel and tick-borne labs -Follow blood cultures -Tylenol as needed, Zofran as needed -Gentle IVF with LR at 100mLhr x 1L (2) Abdominal pain: Plan: Etiology unclear. CT of the abdomen unremarkable -Gentle IVF -Bowel regimen PRN (3) Hypertension: Plan: Chronic. Stable -Continue Metoprolol -Holding Lasix and Spironolactone for now -Monitor (4) GERD (gastroesophageal reflux disease): Plan: Chronic. Stable -Continue Omeprazole qHS (5) Obstructive sleep apnea: Plan: Chronic. Patient does not use CPAP qHS - he is on supplemental O2 -Continue nocturnal O2 (6) CKD (chronic kidney disease) stage 3, GFR 30-59 ml/min: Plan: Near baseline. Patient with no urinary complaints -Avoid nephrotoxic agents -Repeat BMP in AM (7) Type 2 diabetes mellitus: Plan: Chronic. Stable -Lantus 10u BID -ISS History of Present Illness Chief Complaint: weakness, fatigue Primary Care Provider: Melissa Frazier MD Jose Elias Frank is a pleasant 78yo male with history of HTN, DM, HLP, RAMAN presenting with ongoing symptoms of nausea, vomiting, weakness and fatigue. Patient first developed symptoms appx 4 weeks ago as nausea with non-bloody/non-bilious emesis as well as diarrhea which lasted appx 1 week. His symptoms overall improved but then started again 2 weeks ago. He has had ongoing nausea with vomiting, decreased appetite and poor oral intake as well as fevers and chills, abdominal discomfort and headache. He has had intermittent chest pain as well - described as dull substernal and epigastric pressure and occasionally stabbing sharp pain in the right chest. The chest pains occur intermittently and last only a few minutes before resolving. Last episode of such pain was yesterday. He has had mild, stable shortness of breath. Denies cough or diarrhea. No urinary complaints or pelvic pain. No rash. No recent travel, sick contacts, no recent vaccinations or medication changes. No known tick exposure. No recent dental work or procedures. Does have some constipation at present - last BM was Monday AM. Has some diffuse joint pain. Has been taking Aleve for his pain which was helping but most recently has not been working. Patient reports he was able to walk 4 days ago but now requires assistance to stand up due to generalized weakness. Patient was seen in the ER on 01/20/24 with complaint of chest pain. Workup was largely unremarkable so he was discharged home. Allergies Allergy/AdvReac Type Severity Reaction Status Date / Time adhesive tape Allergy Mild Redness of Verified 01/22/24 14:11 Skin Iodinated Contrast Media AdvReac Intermediate Gastrointestinal Verified 01/22/24 14:11 Upset iodine AdvReac Unknown "iodine Verified 01/22/24 14:11 solution caused unknown" Home Medications Medication Instructions Recorded Confirmed Type aspirin 81 mg tablet,delayed 162 mg PO QAM 01/16/21 01/22/24 History release ([place] Low Dose Aspirin) albuterol sulfate 90 mcg/actuation 2 puff inhalation Q4H PRN 12/26/21 01/22/24 History aerosol inhaler Shortness Of Breath Or Wheezing lorazepam 0.5 mg tablet 0.5 mg sublingual Q6H PRN Anxiety 12/26/21 01/22/24 History empagliflozin 10 mg tablet 10 mg PO QAM #30 tabs 01/22/22 01/22/24 Rx (Jardiance) Oxygen Home E0424 #1 ea 05/31/22 01/22/24 Rx flash glucose scanning reader #1 ea 06/02/22 01/22/24 Rx (FreeStyle Shlomo 2 Okay) pen needle, diabetic 31 gauge x #200 ea 06/13/22 01/12/24 Rx 5/16" (BD Ultra-Fine Short Pen Needle) fluoxetine 20 mg capsule 40 mg PO QAM 01/06/23 01/22/24 History Shower Chair #1 ea 02/15/23 01/12/24 Rx ketoconazole 2 % topical cream 1 applic topical DAILY #30 grams 08/01/23 01/22/24 Rx flash glucose sensor (FreeStyle #2 KITS 10/04/23 01/22/24 Rx Shlomo 2 Sensor kit) furosemide 20 mg tablet 100 mg PO DAILY 10/18/23 01/22/24 History ondansetron HCl 4 mg tablet 4 mg PO Q6H PRN NAUSEA/VOMITING 10/18/23 01/22/24 History semaglutide 2 mg/dose (8 mg/3 mL) 2 mg (0.75 mL) subcut WK #3 mL 10/18/23 01/22/24 Rx subcutaneous pen injector (Ozempic) spironolactone 50 mg tablet 50 mg PO BID #180 tabs 10/24/23 01/22/24 Rx omeprazole 20 mg capsule,delayed 20 mg PO QAM #90 caps 11/06/23 01/22/24 Rx release metoprolol succinate 25 mg 25 mg PO DAILY #90 tabs 11/24/23 01/22/24 Rx tablet,extended release 24 hr celecoxib 200 mg capsule (Celebrex) 200 mg PO DAILY #7 caps 01/12/24 01/20/24 Rx atorvastatin 40 mg tablet 40 mg PO QAM #90 tabs 01/17/24 01/22/24 Rx diclofenac sodium 1 % topical gel 4 g topical QID PRN Pain 01/20/24 01/22/24 History (Voltaren Arthritis Pain) Past Med/Surg History Medical History Hypertension History of septic arthritis History of pressure ulcer rt ankle stage 2 COVID-19 Right knee pain Hypoxia Diabetes mellitus type 2, insulin dependent Restrictive lung disease secondary to obesity Morbid obesity Degenerative disc disease Osteoarthritis BPH (benign prostatic hyperplasia) Anxiety and depression Hyperlipidemia Hypertension Chronic diastolic heart failure, NYHA class 3 Nonobstructive atherosclerosis of coronary artery H/O deep venous thrombosis 5+ yrs ago s/p fall Pulmonary emphysema GERD (gastroesophageal reflux disease) Sleep apnea BIPAP Restrictive cardiomyopathy Surgical History History of open reduction and internal fixation (ORIF) procedure LEFT WRIST (HARDWARE REMOVED) 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) History of esophagogastroduodenoscopy (EGD) History of herniorrhaphy multiple History of tooth extraction History of cataract surgery RT/LEFT Difficult intubation "Elective" glidescope noted on 08/2018 [facility] record Status post total hip replacement, left History of colonoscopy History of arthroscopy RIGHT SHOULDER Hx of transurethral resection of prostate History of total knee replacement RIGHT/LEFT History of cardiac cath MULTIPLE (NO STENTS PLACED) MOST RECENT= 2018 S/P cholecystectomy Family History Mother Stroke Alzheimer disease Father MVA (motor vehicle accident) Sister Breast cancer Daughter Brain tumor Denies family history of Ovarian cancer Prostate cancer Myocardial infarction Colorectal cancer Social History Smoking Status: Former smoker Tobacco Type: Cigarettes Age Started Using Tobacco: 18; Age Quit Using Tobacco: 30; Cigarettes Per Day: 1-2 ppd; Second Hand Exposure: No; Do You Dip or Chew Tobacco: No; Hx Alcohol Use: No Hx Substance Use: No Preferred Language: Thai Communication Ability: Effective Visual Impairment: No Limitations Hearing Ability: Normal Investment Specialist Required: No Beliefs That Will Affect Care: None marital status: Current Living Situation: Spouse Current Living Situation Comment: Lives with Bridgett and grandson current occupational status: retired 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[employer], 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, 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 How many Children do You have: 2 Feels Safe at Home: Yes Safety Concerns: Feels Safe At This Time Childhood Exposure to Second-Hand Smoke: No Diet: regular Diet Comment: regular Dental Care, Regularly: Yes Physical Activity Frequency: Does not Exercise Seatbelt Use: sometimes Sunscreen Use: No Assistive Devices: Cane, Denture - Upper, Glasses, Oxygen - at Night and Walker Review of Systems Review of Systems: All systems reviewed & are unremarkable except as noted in HPI & below Physical Exam Physical Exam: General: patient resting comfortably, NAD, non-toxic in appearance, AA&O x 4 Skin: warm, dry, intact, no rashes or lesions HEENT: NC/AT, PERRL, EOMI, anicteric sclera, conjunctiva without injection, external ear normal to inspection and nontender, nares patent, moist mucus membranes, dentition intact, no oropharyngeal lesions, neck supple, trachea midline, no LAD, no thyromegaly, no JVD Heart: +S1/S2, regular, no m/r/g Lungs: equal air entry bilaterally, no rales/rhonchi/wheezes Abd: +BS, soft, mildly distended, tender to palpation without rebound or guarding, no masses/organomegaly/ascites Ext: warm, 2+ pulses in UE/LE bilaterally, no clubbing/cyanosis or edema Neuro: nonfocal, patient AA&O x 4, speech intact, no facial droop, moving all extremities on command with equal strength 5/5 Results & Data Results & Data Vital Signs (Past 12 Hours) Vital Signs Temp Pulse Pulse Resp BP BP Pulse Ox 01/22/24 21:00 101 H 21 93 01/22/24 20:30 104 H 22 105/67 93 01/22/24 19:16 107 H 22 93 01/22/24 19:15 101 H 01/22/24 18:56 105 H 20 115/76 92 01/22/24 18:32 89 L 01/22/24 18:30 78 20 129/72 89 L 01/22/24 15:00 37.8 C H 107 H 22 100/67 93 O2 Del Method 01/22/24 21:00 Room Air 01/22/24 20:30 Room Air 01/22/24 19:16 Room Air 01/22/24 19:15 01/22/24 18:56 Room Air 01/22/24 18:32 Room Air 01/22/24 18:30 Room Air 01/22/24 15:00 Laboratory Results Laboratory Results WBC 13.58 K/ul (4.8-10.8) H 01/22/24 18:23 RBC 5.68 M/uL (4.70-6.10) 01/22/24 18:23 Hgb 15.2 g/dl (14.0-18.0) 01/22/24 18:23 Hct 49.0 % (42.0-52.0) 01/22/24 18:23 MCV 86.3 fL (80.0-100.0) 01/22/24 18:23 MCH 26.8 pg (25.0-34.0) 01/22/24 18:23 MCHC 31.0 g/dL (32.0-36.0) L 01/22/24 18:23 RDW Std Deviation 47.8 fL (36.4-46.3) H 01/22/24 18:23 RDW Coeff of Kartik 15.1 % (11.5-14.5) H 01/22/24 18:23 Plt Count 261 K/uL (130-400) 01/22/24 18:23 MPV 10.7 fL (9.4-12.4) 01/22/24 18:23 Immature Gran % (Auto) 0.8 % 01/22/24 18: Neut % (Auto) 67.0 % 01/22/24 18:23 Lymph % (Auto) 15.8 % 01/22/24 18:23 [place] % (Auto) 14.9 % 01/22/24 18:23 Eos % (Auto) 1.1 % 01/22/24 18:23 Baso % (Auto) 0.4 % 01/22/24 18:23 Neut # (Auto) 9.09 K/uL (1.40-6.50) H 01/22/24 18:23 Lymph # (Auto) 2.14 K/uL (1.20-3.40) 01/22/24 18:23 [place] # (Auto) 2.03 K/uL (0.11-0.59) H 01/22/24 18:23 Eos # (Auto) 0.15 K/uL (0.00-0.50) 01/22/24 18:23 Baso # (Auto) 0.06 K/uL (0.00-0.20) 01/22/24 18:23 Immature Gran # (Auto) 0.11 K/uL (0.01-0.20) 01/22/24 18:23 Sodium 132 mmol/L (136-145) L 01/22/24 18:23 Potassium 3.4 mmol/L (3.5-5.1) L 01/22/24 18:23 Chloride 93 mmol/L (98-107) L 01/22/24 18:23 Carbon Dioxide 31 mmol/L (21-32) 01/22/24 18:23 Anion Gap 8 (3-11) 01/22/24 18:23 BUN 17 mg/dl (6-23) 01/22/24 18: Creatinine 1.48 mg/dl (0.6-1.4) H 01/22/24 18:23 Est Cr Clr Drug Dosing 58.2 ml/min 01/22/24 18:23 Est GFR ( Amer) 52.5 ml/min 01/22/24 18:23 Est GFR (Non-Af Amer) 45.3 ml/min 01/22/24 18:23 BUN/Creatinine Ratio 11.5 (10-20) 01/22/24 18:23 Glucose 112 mg/dl (70-99(Fasting)) H 01/22/24 18:23 POC Glucose 166 mg/dl (70-99) H 01/23/24 00:47 Lactate 1.8 mmol/L (0.4-2.0) 01/22/24 19:05 Calcium 10.1 mg/dl (8.6-10.3) 01/22/24 18:23 Phosphorus 1.8 mg/dl (2.5-4.9) L 01/22/24 18:23 Magnesium 2.2 mg/dl (1.7-2.4) 01/22/24 18:23 Total Bilirubin 0.6 mg/dl (0.2-1.0) 01/22/24 18:23 Direct Bilirubin 0.1 mg/dl (0-0.2) 01/22/24 18:23 AST 14 U/L (13-39) 01/22/24 18:23 ALT 14 U/L (7-52) 01/22/24 18:23 Alkaline Phosphatase 79 U/L (34-104) 01/22/24 18:23 Troponin I High Sens 10.0 pg/ml (0-20) 01/22/24 18:23 C-Reactive Protein 12.03 mg/dl (0-0.5) H 01/22/24 18:23 Total Protein 7.9 gm/dl (6.0-8.3) 01/22/24 18:23 Albumin 4.1 gm/dl (3.4-5.0) 01/22/24 18:23 Lipase 54 U/L (11-82) 01/22/24 18:23 Procalcitonin 0.21 ng/ml (0-0.5) 01/22/24 18:23 Urine Color Yellow 01/22/24 Unknown Urine Appearance Clear (Clear) 01/22/24 Unknown Urine pH 6.5 (4.5-7.5) 01/22/24 Unknown Ur Specific [place] 1.027 (1.000-1.030) 01/22/24 Unknown Urine Protein 2+ (Negative) H 01/22/24 Unknown Urine Glucose (UA) 3+ (Negative) H 01/22/24 Unknown Urine Ketones Negative (Negative) 01/22/24 Unknown Urine Blood Trace (Negative) H 01/22/24 Unknown Urine Nitrite Negative (Negative) 01/22/24 Unknown Urine Bilirubin Negative (Negative) 01/22/24 Unknown Urine Urobilinogen Negative (Negative) 01/22/24 Unknown Ur Leukocyte Esterase Negative (Negative) 01/22/24 Unknown Urine WBC (Auto) 6-10 /hpf (0-5) H 01/22/24 Unknown Urine RBC (Auto) 3-5 /hpf (0-2) H 01/22/24 Unknown U Hyaline Cast (Auto) 0-2 /lpf (0-2) 01/22/24 Unknown U Epithel Cells (Auto) 0-2 /hpf (0-2) 01/22/24 Unknown Urine Bacteria (Auto) None Seen (None Seen) 01/22/24 Unknown Adenovirus (PCR) Not Detected (NotDetected) 01/22/24 Unknown Anaplasma Smear See Comment 01/22/24 18:23 Babesia Smear See Comment 01/22/24 18:23 B. pertussis DNA (PCR) Not Detected (NotDetected) 01/22/24 Unknown B.parapertussis DNA PCR Not Detected (NotDetected) 01/22/24 Unknown C. pneumoniae DNA (PCR) Not Detected (NotDetected) 01/22/24 Unknown Coronavirus OC43 (PCR) Not Detected (NotDetected) 01/22/24 Unknown Coronavirus HKU1 (PCR) Not Detected (NotDetected) 01/22/24 Unknown Coronavirus 229E (PCR) Not Detected (NotDetected) 01/22/24 Unknown SARS-CoV-2 (PCR) Not Detected (NotDetected) 01/22/24 Unknown Coronavirus NL63 (PCR) Not Detected (NotDetected) 01/22/24 Unknown Human Metapneumovir PCR Not Detected (NotDetected) 01/22/24 Unknown Influenza Type A (PCR) Not Detected (NotDetected) 01/22/24 Unknown Influenza Type B (PCR) Not Detected (NotDetected) 01/22/24 Unknown M. pneumoniae (PCR) Not Detected (NotDetected) 01/22/24 Unknown Parainfluenza 1 (PCR) Not Detected (NotDetected) 01/22/24 Unknown Parainfluenza 2 (PCR) Not Detected (NotDetected) 01/22/24 Unknown Parainfluenza 3 (PCR) Not Detected (NotDetected) 01/22/24 Unknown Parainfluenza 4 (PCR) Not Detected (NotDetected) 01/22/24 Unknown RSV (PCR) Not Detected (NotDetected) 01/22/24 Unknown Entero/Rhino (PCR) Not Detected (NotDetected) 01/22/24 Unknown Impressions Chest X-Ray 01/22/24 17:54 XR chest 1V portable HISTORY: 78 years-old Male Sepsis acute sepsis COMPARISON: 01/20/2024 TECHNIQUE: AP view the chest FINDINGS: Cardiac silhouette is enlarged. Atherosclerosis of the aorta. Subsegmental bibasilar atelectasis without pneumothorax, pleural effusion or pulmonary edema. Bones appear grossly intact. IMPRESSION: Cardiomegaly without acute process. ACT 112: Negative or not required by law. The above report was generated using voice recognition software. It may contain grammatical, syntax or spelling errors. Electronically signed by: Gurvinder Ritchie M.D. 01/22/2024 6:31 PM Abdomen/Pelvis CT 01/22/24 19:18 Exam(s): CT ABDOMEN + PELVIS Without Contrast EXAM: CT Abdomen and Pelvis Without Intravenous Contrast CLINICAL HISTORY: Reason for exam: ABD PAIN, VOMITING. TECHNIQUE: Axial computed tomography images of the abdomen and pelvis without intravenous contrast. CTDI is 28.14 mGy and DLP is 1408.89 mGy-cm. Automated exposure control was utilized for the study. A dose lowering technique was utilized adhering to the principles of ALARA. COMPARISON: 01/20/2024. FINDINGS: Lung bases: Unremarkable. No mass. No consolidation. Heart: Unremarkable. No cardiomegaly. No significant pericardial effusion. Normal cardiac size. ABDOMEN: Liver: Unremarkable. Gallbladder and bile ducts: Status post cholecystectomy. No ductal dilation. Pancreas: Unremarkable. No ductal dilation. Spleen: Unremarkable. No splenomegaly. Adrenals: Unremarkable. No mass. Kidneys and ureters: Right lower renal pole simple cyst measuring 2.5 cm. Otherwise normal right kidney. Left upper renal pole simple cyst measuring 1.6 cm, otherwise normal left kidney. No obstructing stones. No hydronephrosis. Stomach and bowel: Unremarkable. No obstruction. No mucosal thickening. PELVIS: Appendix: Normal appendix. Bladder: Unremarkable. No stones. Reproductive: Unremarkable as visualized. ABDOMEN and PELVIS: Intraperitoneal space: Unremarkable. No free air. No significant fluid collection. Bones/joints: Bilateral hip prosthesis in place with obscuration of the pelvic structures from being hardening artifact. Multilevel degenerative disease of the spine. No acute fracture. No dislocation. Soft tissues: Status post right anterior paracentral ventral hernia repair. Vasculature: Mild atherosclerotic disease of aorta with no aneurysm. Lymph nodes: Unremarkable. No enlarged lymph nodes. IMPRESSION: 1. No acute appendicitis or bowel obstruction. No focal inflammatory process throughout the gastrointestinal tract. 2. Status post cholecystectomy. Nonspecific bilateral simple renal cysts with no further follow-up imaging recommended. Remainder of abdominal discharge unremarkable. Electronically signed by: Zoila Steven MD 01/22/24 21:06 PM PG Care Time/CCT Total # of Minutes Spent Total Time Spent with Patient: Total time spent is greater than 50% in coordination of care (as documented) at patient's floor/unit and/or counseling patient: Coding Level of Care Code 73732 INT INP/OBS CARE 3/75MIN Diagnoses Nausea & vomiting R11.2 Vomiting type: unspecified Abdominal pain R10.10 Abdominal location: upper abdomen, unspecified Hypertension I10 Gastroesophageal reflux disease, esophagitis presence not specified K21.9 Esophagitis presence: esophagitis presence not specified Obstructive sleep apnea G47.33 CKD (chronic kidney disease) stage 3, GFR 30-59 ml/min N18.30 Chronic kidney disease stage 3 subtype: unspecified whether 3a or 3b Type 2 diabetes mellitus E11.9 (1) Nausea & vomiting Vomiting type: unspecified Qualified Code(s): R11.2 - Nausea with vomiting, unspecified (2) Abdominal pain Abdominal location: upper abdomen, unspecified Qualified Code(s): R10.10 - Upper abdominal pain, unspecified (4) GERD (gastroesophageal reflux disease) Esophagitis presence: esophagitis presence not specified Qualified Code(s): K21.9 - Gastro-esophageal reflux disease without esophagitis (6) CKD (chronic kidney disease) stage 3, GFR 30-59 ml/min Chronic kidney disease stage 3 subtype: unspecified whether 3a or 3b Qualified Code(s): N18.30 - Chronic kidney disease, stage 3 unspecified
[2024-01-23] MEDS ORDERED: GLUCOSE 10 TAB/TUBE PO PRN (00:26)
[2024-01-23] MEDS ORDERED: ONDANSETRON INJ 2 MG/ML 2 ML VIAL IV PRN (00:26)
[2024-01-23] MEDS ORDERED: DEXTROSE 50% 50 ML SYRINGE IV PRN (00:26)
[2024-01-23] MEDS ORDERED: GLUCOSE 40% GEL 15 GM TUBE PO PRN (00:26)
[2024-01-23] MEDS ORDERED: POLYETHYLENE (MIRALAX) 17 GM PACK PO PRN (00:26)
[2024-01-23] MEDS ORDERED: DOCUSATE SODIUM 100 MG CAP PO PRN (00:26)
[2024-01-23] MEDS ORDERED: CARBOHYDRATES FOR HYPOGLYCEMIA PO PRN (00:26)
[2024-01-23] MEDS ORDERED: GLUCAGON FOR INJ 1 MG VIAL SQ PRN (00:26)
[2024-01-23] MEDS: LACTATED RINGER'S 1,000 ML IV SCH (01:20)
[2024-01-23] MEDS: POTASSIUM CHLORIDE CRTAB 20 MEQ TABCR PO STA (01:20)
[2024-01-23] MEDS: ACETAMINOPHEN 325 MG TAB PO PRN (01:22)
[2024-01-23 01:35] LABS: C Reactive Protein 12.03 mg/dl (0-0.5); Phosphorus 1.8 mg/dl (2.5-4.9)
[2024-01-23] MEDS ORDERED: LORazepam 0.5 MG TAB SL PRN (03:45)
[2024-01-23 06:11] LABS: Basophils # (auto) 0.06 K/uL (0.00-0.20); Basophils % (auto) 0.5 %; Eosinophils # (auto) 0.48 K/uL (0.00-0.50); Eosinophils % (auto) 4.4 %; Hematocrit (blood only) 44.8 % (42.0-52.0); Hemoglobin 14.3 g/dl (14.0-18.0); Immature Granulocytes # (auto) 0.06 K/uL (0.01-0.20); Immature Granulocytes % (auto) 0.5 %; Lymphocytes # (auto) 2.47 K/uL (1.20-3.40); Lymphocytes % (auto) 22.4 %; Mean Corpuscular Hgb Conc 31.9 g/dL (32.0-36.0); Mean Corpuscular Volume 84.5 fL (80.0-100.0); Mean Platelet Volume 10.5 fL (9.4-12.4); Monocytes # (auto) 1.96 K/uL (0.11-0.59); Monocytes % (auto) 17.8 %; Neutrophils % (auto) 54.4 %; Platelet Count 214 K/uL (130-400); RDW Coefficient of Variation 15.2 % (11.5-14.5); RDW Standard Deviation 46.8 fL (36.4-46.3); White Blood Count 11.03 K/ul (4.8-10.8)
[2024-01-23 06:42] LABS: BUN Creatinine Ratio 14.4 (10-20); Calcium 9.6 mg/dl (8.6-10.3); Creatinine Clr Calc Pharmacy 62.4 ml/min; Est GFR (African American) 56.7 ml/min; Est GFR (Non-African American) 48.9 ml/min; Potassium 3.5 mmol/L (3.5-5.1)
[2024-01-23] MEDS: METOPROLOL SUCC 25MG EXT REL TAB PO SCH (08:09)
[2024-01-23] MEDS: POT PHOSPHATE MONOBASIC W/ SOD TAB PO SCH (08:09)
[2024-01-23] MEDS: CeleBREX 200 MG CAP PO SCH (08:09)
[2024-01-23] MEDS: FLUoxetine HCL 20 MG CAP PO SCH (08:10)
[2024-01-23] MEDS: ASPIRIN 81 MG ECTAB PO SCH (08:10)
[2024-01-23] MEDS: ATORVASTATIN 40 MG TAB PO SCH (08:10)
[2024-01-23] MEDS: PANTOprazole 40 MG TAB PO SCH ×2 (08:10→21:04)
[2024-01-23] MEDS: LANTUS PER UNIT CHARGE SQ SCH (08:53)
[2024-01-23] MEDS: INSULIN ASPART PER UNIT CHARGE SC SCH (08:53)
--- NOTE | 2024-01-23 12:45 | Hospitalist Progress Note ---
Date of Service January 23, 2024 Assessment & Plan (1) Sepsis: Plan: suspected high WBC count, fever, other infectious symptoms source uncertain extensive w/u to date - cxr (x 2), ua, lyme screen, anaplasmosis/babesia screens, CT a/p, blood cx's -- thus far all negative resp biofire negative MRCP pending (to exclude CBD stone, other biliary tract pathology given his abd pain) place on doxy IV in the event this is a tick-borne illness (had recent flu-like symptoms, arthralgias, poor appetite, etc) send anaplasmosis DNA follow cultures repeat labs am (2) Nausea & vomiting: Plan: uncertain if related to unidentified infectious process vs primary GI (esophagitis or gastritis from NSAID use, ?biliary tract issue, etc) could be combination of the two N/V have improved overnight advance diet as tolerated today increase PPI to BID dosing add carafate CT a/p noted to be normal will obtain MRCP to exclude the remote chance of a CBD stone or pancreatic duct issue LFTs/lipase noted to be normal (3) Abdominal pain: Plan: see #1 above (4) Hypertension: Plan: Continue Metoprolol Cont to hold Lasix and Spironolactone due to recent volume contraction (5) GERD (gastroesophageal reflux disease): Plan: see #1 increase PPI and carafate (6) Obstructive sleep apnea: Plan: Patient does not use CPAP qHS - he is on supplemental O2 Continue nocturnal O2 (7) CKD (chronic kidney disease) stage 3, GFR 30-59 ml/min: (8) Type 2 diabetes mellitus: Plan: a1c 6.3% in Oct 2023 cont lantus and novolog (9) Dizziness: Plan: 2nd to volume contraction improved s/p IV fluids and holding his diuretics occurred in the setting of poor PO intake, vomiting, etc (10) Leukocytosis: Plan: chronic, and has seen hematology for such in the past with negative work-up for primary bone marrow disorder (by his report) Plan updated at bedside 2x's today Admission and Anticipated Discharge Date Admission Date: January 22, 2024 Subjective "feels better today" wasn't able to stand and move around yesterday but able to do so today able to get to the bathroom more easily energy modestly improved had had arthralgias (diffuse) at home - now resolved no myalgias main complaint is that of upper abd pain hurts after eating ( has noted that pattern) no vomiting tolerating liquids is hungry states he takes 162mg of aspirin daily chronically then was taking motrin prn over the last few weeks then switched to aleve denies any recent travel denies any obvious sick contacts no obvious tick bites Review of Systems Review of Systems: cv - no chest pain pulm - no cough; did have some transient dyspnea at home - now improved GI - no diarrhea; no vomiting skin - no rash - no dysuria Physical Exam Physical Exam: gen - obese, NAD, nontoxic mouth - MMM neck - no JVD, no lymph nodes heart - RRR, s1 s2, no murmur lungs - CTA b/l except mild LLL dry rales abd - tender RUQ and high epigastric region, no peritoneal signs, no HSM, BS+, nondistended ext - no edema, pulses 2+ b/l skin - no rash neuro - strength 5/5 x 4 exts musculo - no joint synovitis any small or large joint Results & Data Results & Data Vital Signs (Past 12 Hours) Vital Signs Temp Pulse Resp BP Pulse Ox O2 Del Method 01/23/24 09:10 Room Air 01/23/24 07:34 36.6 C 67 17 122/78 99 Room Air Laboratory Results Laboratory Results - last 24 hr 01/22/24 01/22/24 01/22/24 18:23 19:05 Unknown WBC 13.58 H RBC 5.68 Hgb 15.2 Hct 49.0 MCV 86.3 MCH 26.8 MCHC 31.0 L RDW Std Deviation 47.8 H RDW Coeff of Kartik 15.1 H Plt Count 261 MPV 10.7 Immature Gran % (Auto) 0.8 Neut % (Auto) 67.0 Lymph % (Auto) 15.8 [place] % (Auto) 14.9 Eos % (Auto) 1.1 Baso % (Auto) 0.4 Neut # (Auto) 9.09 H Lymph # (Auto) 2.14 [place] # (Auto) 2.03 H Eos # (Auto) 0.15 Baso # (Auto) 0.06 Immature Gran # (Auto) 0.11 Sodium 132 L Potassium 3.4 L Chloride 93 L Carbon Dioxide 31 Anion Gap 8 BUN 17 Creatinine 1.48 H Est Cr Clr Drug Dosing 58.2 Est GFR ( Amer) 52.5 Est GFR (Non-Af Amer) 45.3 BUN/Creatinine Ratio 11.5 Glucose 112 H POC Glucose Lactate 1.8 Calcium 10.1 Phosphorus 1.8 L Magnesium 2.2 Total Bilirubin 0.6 Direct Bilirubin 0.1 AST 14 ALT 14 Alkaline Phosphatase 79 Troponin I High Sens 10.0 C-Reactive Protein 12.03 H Total Protein 7.9 Albumin 4.1 Lipase 54 Procalcitonin 0.21 Urine Color Yellow Urine Appearance Clear Urine pH 6.5 Ur Specific [place] 1.027 Urine Protein 2+ H Urine Glucose (UA) 3+ H Urine Ketones Negative Urine Blood Trace H Urine Nitrite Negative Urine Bilirubin Negative Urine Urobilinogen Negative Ur Leukocyte Esterase Negative Urine WBC (Auto) 6-10 H Urine RBC (Auto) 3-5 H U Hyaline Cast (Auto) 0-2 U Epithel Cells (Auto) 0-2 Urine Bacteria (Auto) None Seen Adenovirus (PCR) Not Detected Anaplasma Smear See Comment Babesia Smear See Comment Babesia microti DNA PCR Pending B. pertussis DNA (PCR) Not Detected B.parapertussis DNA PCR Not Detected C. pneumoniae DNA (PCR) Not Detected Coronavirus OC43 (PCR) Not Detected Coronavirus HKU1 (PCR) Not Detected Coronavirus 229E (PCR) Not Detected SARS-CoV-2 (PCR) Not Detected Coronavirus NL63 (PCR) Not Detected Human Metapneumovir PCR Not Detected Influenza Type A (PCR) Not Detected Influenza Type B (PCR) Not Detected M. pneumoniae (PCR) Not Detected Parainfluenza 1 (PCR) Not Detected Parainfluenza 2 (PCR) Not Detected Parainfluenza 3 (PCR) Not Detected Parainfluenza 4 (PCR) Not Detected RSV (PCR) Not Detected Entero/Rhino (PCR) Not Detected 01/23/24 01/23/24 01/23/24 00:47 05:47 07:36 WBC 11.03 H RBC 5.30 Hgb 14.3 Hct 44.8 MCV 84.5 MCH 27.0 MCHC 31.9 L RDW Std Deviation 46.8 H RDW Coeff of Kartik 15.2 H Plt Count 214 MPV 10.5 Immature Gran % (Auto) 0.5 Neut % (Auto) 54.4 Lymph % (Auto) 22.4 [place] % (Auto) 17.8 Eos % (Auto) 4.4 Baso % (Auto) 0.5 Neut # (Auto) 6.00 Lymph # (Auto) 2.47 [place] # (Auto) 1.96 H Eos # (Auto) 0.48 Baso # (Auto) 0.06 Immature Gran # (Auto) 0.06 Sodium 135 L Potassium 3.5 Chloride 100 Carbon Dioxide 27 Anion Gap 8 BUN 20 Creatinine 1.39 Est Cr Clr Drug Dosing 62.4 Est GFR ( Amer) 56.7 Est GFR (Non-Af Amer) 48.9 BUN/Creatinine Ratio 14.4 Glucose 109 H POC Glucose 166 H 110 H Lactate Calcium 9.6 Phosphorus Magnesium Total Bilirubin Direct Bilirubin AST ALT Alkaline Phosphatase Troponin I High Sens C-Reactive Protein Total Protein Albumin Lipase Procalcitonin Urine Color Urine Appearance Urine pH Ur Specific [place] Urine Protein Urine Glucose (UA) Urine Ketones Urine Blood Urine Nitrite Urine Bilirubin Urine Urobilinogen Ur Leukocyte Esterase Urine WBC (Auto) Urine RBC (Auto) U Hyaline Cast (Auto) U Epithel Cells (Auto) Urine Bacteria (Auto) Adenovirus (PCR) Anaplasma Smear Babesia Smear Babesia microti DNA PCR B. pertussis DNA (PCR) B.parapertussis DNA PCR C. pneumoniae DNA (PCR) Coronavirus OC43 (PCR) Coronavirus HKU1 (PCR) Coronavirus 229E (PCR) SARS-CoV-2 (PCR) Coronavirus NL63 (PCR) Human Metapneumovir PCR Influenza Type A (PCR) Influenza Type B (PCR) M. pneumoniae (PCR) Parainfluenza 1 (PCR) Parainfluenza 2 (PCR) Parainfluenza 3 (PCR) Parainfluenza 4 (PCR) RSV (PCR) Entero/Rhino (PCR) PG Care Time/CCT Total # of Minutes Spent Total Time Spent with Patient: Total time spent is greater than 50% in coordination of care (as documented) at patient's floor/unit and/or counseling patient: Coding Level of Care Code 53698 SUB INP/OBS CARE 3/50MIN Diagnoses Sepsis A41.9 Sepsis acute organ dysfunction status: unspecified Sepsis type: sepsis due to unspecified organism Nausea & vomiting R11.2 Vomiting type: unspecified Abdominal pain R10.10 Abdominal location: upper abdomen, unspecified Hypertension I10 Gastroesophageal reflux disease, esophagitis presence not specified K21.9 Esophagitis presence: esophagitis presence not specified Obstructive sleep apnea G47.33 CKD (chronic kidney disease) stage 3, GFR 30-59 ml/min N18.30 Chronic kidney disease stage 3 subtype: unspecified whether 3a or 3b Type 2 diabetes mellitus E11.9 Dizziness R42 Leukocytosis D72.829 (1) Sepsis Sepsis acute organ dysfunction status: unspecified Sepsis type: sepsis due to unspecified organism Qualified Code(s): A41.9 - Sepsis, unspecified organism (2) Nausea & vomiting Vomiting type: unspecified Qualified Code(s): R11.2 - Nausea with vomiting, unspecified (3) Abdominal pain Abdominal location: upper abdomen, unspecified Qualified Code(s): R10.10 - Upper abdominal pain, unspecified (5) GERD (gastroesophageal reflux disease) Esophagitis presence: esophagitis presence not specified Qualified Code(s): K21.9 - Gastro-esophageal reflux disease without esophagitis (7) CKD (chronic kidney disease) stage 3, GFR 30-59 ml/min Chronic kidney disease stage 3 subtype: unspecified whether 3a or 3b Qualified Code(s): N18.30 - Chronic kidney disease, stage 3 unspecified
--- NOTE | 2024-01-23 14:07 | XRay Report ---
XR chest 2V PA/lateral HISTORY: 78 years-old Male fever, LLL rales acute fever and shortness of breath COMPARISON: 01/22/2024 TECHNIQUE: PA and lateral views of the chest FINDINGS: Cardiac silhouette is enlarged. Atherosclerosis of the aorta. Subsegmental bibasilar atelectasis with out pneumothorax, pleural effusion or pulmonary edema. Bones appear grossly intact. IMPRESSION: Cardiomegaly without acute process. ACT 112: Negative or not required by law. The above report was generated using voice recognition software. It may contain grammatical, syntax o r spelling errors. Electronically signed by: Gurvinder Ritchie M.D. 01/23/2024 2:06 PM
[2024-01-23] MEDS: SUCRALFATE 1 GM/10 ML UDC PO SCH (14:24)
[2024-01-23] MEDS: LORazepam 0.5 MG TAB PO ONE (21:40)
--- NOTE | 2024-01-24 00:10 | Magnetic Resonance Report ---
Exam(s): MRI MRCP EXAM: MR Abdomen Without Intravenous Contrast, MRCP Protocol CLINICAL HISTORY: RUQ abd pain, h/o cholecystectomy. TECHNIQUE: Multiplanar magnetic resonance images of the abdomen without intravenous contrast using MRCP protocol. COMPARISON: CT abdomen and pelvis without contrast dated 01/22/2024 at 1943 hrs. FINDINGS: Bile ducts: Unremarkable. No stones. No ductal dilation. Gallbladder: Status post cholecystectomy. Liver: 8 mm cyst in the inferomedial right lobe of the liver. The liver is otherwise unremarkable. Pancreas: Unremarkable. No ductal dilation. Spleen: Unremarkable. No splenomegaly. Adrenals: Unremarkable. No mass. Kidneys and ureters: A cortical cyst is noted involving the inferomedial right kidney measuring 3 cm a cortical cyst involving the anterolateral mid left kidney measures 1.5 cm. No hydronephrosis. Stomach and bowel: Unremarkable. No obstruction. IMPRESSION: Cholecystectomy. No biliary dilatation. No choledocholithiasis. Electronically signed by: Parminder Laird MD 01/24/24 00:09 AM
[2024-01-24] MEDS: DOXYCYCLINE HYCLATE 100 MG in DEXTROSE 5% MINI-B 100 ML IV SCH (00:23)
[2024-01-24 07:54] LABS: Albumin Level 3.3 gm/dl (3.4-5.0); Bilirubin Direct 0.1 mg/dl (0-0.2); Bilirubin,Total 0.4 mg/dl (0.2-1.0); Calcium 9.8 mg/dl (8.6-10.3); Potassium 3.7 mmol/L (3.5-5.1)
[2024-01-24 08:00] LABS: Creatinine Clr Calc Pharmacy 75.4 ml/min; Est GFR (African American) 71.2 ml/min; Est GFR (Non-African American) 61.5 ml/min; Total Protein 6.3 gm/dl (6.0-8.3)
[2024-01-24 14:20] LABS: Basophils # (auto) 0.07 K/uL (0.00-0.20); Basophils % (auto) 0.8 %; Eosinophils # (auto) 0.49 K/uL (0.00-0.50); Eosinophils % (auto) 5.7 %; Hematocrit (blood only) 48.5 % (42.0-52.0); Hemoglobin 15.7 g/dl (14.0-18.0); Immature Granulocytes # (auto) 0.06 K/uL (0.01-0.20); Immature Granulocytes % (auto) 0.7 %; Lymphocytes # (auto) 2.06 K/uL (1.20-3.40); Mean Corpuscular Hemoglobin 27.2 pg (25.0-34.0); Mean Corpuscular Hgb Conc 32.4 g/dL (32.0-36.0); Mean Corpuscular Volume 84.1 fL (80.0-100.0); Mean Platelet Volume 10.8 fL (9.4-12.4); Monocytes # (auto) 1.05 K/uL (0.11-0.59); Monocytes % (auto) 12.2 %; Neutrophils # (auto) 4.87 K/uL (1.40-6.50); Neutrophils % (auto) 56.6 %; Platelet Count 257 K/uL (130-400); Platelet Estimate Normal (Normal); RDW Coefficient of Variation 15.1 % (11.5-14.5); RDW Standard Deviation 45.8 fL (36.4-46.3); Red Blood Count 5.77 M/uL (4.70-6.10)
--- NOTE | 2024-01-24 17:54 | Discharge Summary ---
Date of Service January 24, 2024 Admission HPI Per Admitting Provider Jose Elias Frank is a pleasant 78yo male with history of HTN, DM, HLP, RAMAN presenting with ongoing symptoms of nausea, vomiting, weakness and fatigue. Patient first developed symptoms appx 4 weeks ago as nausea with non-bloody/non- bilious emesis as well as diarrhea which lasted appx 1 week. His symptoms overall improved but then started again 2 weeks ago. He has had ongoing nausea with vomiting, decreased appetite and poor oral intake as well as fevers and chills, abdominal discomfort and headache. He has had intermittent chest pain as well - described as dull substernal and epigastric pressure and occasionally stabbing sharp pain in the right chest. The chest pains occur intermittently and last only a few minutes before resolving. Last episode of such pain was yesterday. He has had mild, stable shortness of breath. Denies cough or diarrhea. No urinary complaints or pelvic pain. No rash. No recent travel, sick contacts, no recent vaccinations or medication changes. No known tick exposure. No rec ent dental work or procedures. Does have some constipation at present - last BM was Monday AM. Has some diffuse joint pain. Has been taking Aleve for his pain which was helping but most recently has not been working. Patient reports he was able to walk 4 days ago but now requires assistance to stand up due to generalized weakness. Patient was seen in the ER on 01/20/24 with complaint of chest pain. Workup was largely unremarkable so he was discharged home. Discharge Exam gen - obese, NAD, nontoxic mouth - MMM neck - no JVD, no lymph nodes heart - RRR, s1 s2, no murmur lungs - CTA b/l except mild LLL dry rales abd - tender RUQ and high epigastric region, no peritoneal signs, no HSM, BS+, nondistended ext - no edema, pulses 2+ b/l skin - no rash neuro - strength 5/5 x 4 exts musculo - no joint synovitis any small or large joint Discharge Data Allergies Allergy/AdvReac Type Severity Reaction Status Date / Time adhesive tape Allergy Mild Redness of Verified 01/22/24 14:11 Skin Iodinated Contrast Media AdvReac Intermediate Gastrointestinal Verified 01/22/24 14:11 Upset iodine AdvReac Unknown "iodine Verified 01/22/24 14:11 solution caused unknown" Consultations 01/22/24 20:28 ED Decision to Admit Stat Ordered Studies 01/22/24 19:18 CT abd pelvis wo con Stat 01/23/24 12:42 MR MRCP Routine Hospital Course (1) Sepsis: suspected high WBC count, fever, other infectious symptoms source uncertain extensive w/u to date - cxr (x 2), ua, lyme screen, anaplasmosis/babesia screens, CT a/p, blood cx's -- thus far all negative resp biofire negative MRCP pending (to exclude CBD stone, other biliary tract pathology given his abd pain) place on doxy IV in the event this is a tick-borne illness (had recent flu-like symptoms, arthralgias, poor appetite, etc) send anaplasmosis DNA follow cultures repeat labs am (2) Nausea & vomiting: uncertain if related to unidentified infectious process vs primary GI (esophagitis or gastritis from NSAID use, ?biliary tract issue, etc) could be combination of the two N/V have improved overnight advance diet as tolerated today increase PPI to BID dosing add carafate CT a/p noted to be normal will obtain MRCP to exclude the remote chance of a CBD stone or pancreatic duct issue LFTs/lipase noted to be normal (3) Abdominal pain: see #1 above (4) Hypertension: Continue Metoprolol Cont to hold Lasix and Spironolactone due to recent volume contraction (5) GERD (gastroesophageal reflux disease): see #1 increase PPI and carafate (6) Obstructive sleep apnea: Patient does not use CPAP qHS - he is on supplemental O2 Continue nocturnal O2 (7) CKD (chronic kidney disease) stage 3, GFR 30-59 ml/min: (8) Type 2 diabetes mellitus: a1c 6.3% in Oct 2023 cont lantus and novolog (9) Dizziness: 2nd to volume contraction improved s/p IV fluids and holding his diuretics occurred in the setting of poor PO intake, vomiting, etc (10) Leukocytosis: chronic, and has seen hematology for such in the past with negative work-up for primary bone marrow disorder (by his report) Plan updated at bedside 2x's today Discharge Plan Discharge Items Patient Disposition: Home - Self-Care Reason For Visit: NAUSEA, VOMITING, ABDOMINAL PAIN Discharge Diagnosis: 1. nausea/vomiting - likely due to your illness/infection - resolved 2. abdominal pain - suspected gastritis - improved 3. fever - suspect due to either a virus or tick-borne illness - numerous labs are pending 4. dizziness - due to illness, dehydration, and low blood pressure - resolved Activity: As commented below Activity Comment: gradually increase your activities over the next week Exercise/Sports: Wait until after follow-up appointment Non-emergency contact: Primary Care Provider Call non-emergency contact if: you have any medication questions, your symptoms worsen, your pain is not controlled, your pain is worsening and you have a fever Follow-up/Referrals: Melissa Frazier MD [Primary Care Provider] - 01/31/24 3:20 pm Diet: Carb Consistent or DM2 Addtl Attending Provider Instructions: Mr Frank, You were hospitalized due to nausea, vomiting, abdominal pain, and low-grade fever. Infection was suspected at time of admission based on your symptoms and the low- grade fever. During your stay you had numerous labs, CT scan of the abdomen, multiple chest x-rays, viral respiratory panel, urine studies, and MRI of your bile ducts. Your abdominal pain improved with increasing your omeprazole and adding a medicine called carafate (sucralfate). This would suggest that your stomach and/or your esophagus were inflamed, possibly due to recent use of ibuprofen, then aleve - as well as your usual aspirin. CT scan of the abdomen/pelvis was normal. MRI of your bile ducts was normal. Liver tests and pancreas blood work were normal. There was no evidence of heart attack. Chest x-rays did not show pneumonia. COVID/flu/RSV/other viral studies were negative. Screening tests of lyme disease, anaplasmosis, and babesia (all tick borne illnesses) were negative. Urine and blood cultures have remained negative during your stay - that is, we did not find urinary infection or blood stream infection. The exact cause of your recent joint pains, low-grade fever, nausea, vomiting, and other infectious symptoms was not certain but I suspect either a virus or a tick-borne infection. While waiting for your tick-borne labs to return we will keep you on doxycycline antibiotic as a precautionary measure. Your dizziness & weakness improved with gentle IV fluids and holding several of your blood pressure medicines/diuretics. Recommendations - 1. doxycycline 100mg twice daily, first dose tonight. Common side effect - hearburn/stomach upset. Rare side effect - rash if you go out in the sun over the next 2 weeks; thus, use sunscreen liberally, cover up, etc. I will call you with your viral & tick-borne labs. 2. INCREASE your omeprazole to 40mg once daily starting tomorrow am (you previously were on 20mg/day). This is for your stomach & esophagus. 3. TAKE sucralfate (carafate) 1gram before each meal x 7 days for your stomach. 4. HOLD ALL ANTI-INFLAMMATORY pills except your aspirin. THUS, DO NOT TAKE motrin, ibuprofen, aleve, naprosyn, celebrex at this time. IT IS OK to take tylenol as needed for aches/pains - this does not bother the stomach. 5. HOLD your spironolactone at least until you see your family doctor. 6. HOLD torsemide today and tomorrow; resume on the AM of 01/26/24. Follow-up - see separate section It will be vital to have close follow-up in the event you have recurrent symptoms, recurrent joint pains, etc. If your symptoms come back you will need additional testing to find the cause (especially if all the viral and tick-borne labs return negative). Return to [facility] if - * you have fever over 100 degrees * you have worsening weakness or difficulty walking * you have recurrent vomiting * you have recurrent abdominal pain * any other concerns It was my pleasure to care for you! -Dr Rivera Pending Studies at Discharge: Yes Studies:: multiple tick-borne infection labs and viral studies Stand-Alone Forms: My [facility], Smoking Cessation Medications and DC Order Prescriptions: New sucralfate [Carafate] 1 gram tablet 1 g PO AC 7 Days Qty: 21 0RF doxycycline hyclate 100 mg tablet 100 mg PO BID 14 Days Qty: 28 0RF Continued (DME) FreeStyle Shlomo 2 [place] Misc See Rx Instructions .Route Qty: 1 0RF Rx Instructions: As directed to check blood sugar (scan at least every 8 hours) (DME) pen needle, diabetic [BD Ultra-Fine Short Pen Needle] 31 gauge x 5/16" needle See Rx Instructions .Route Qty: 200 3RF Rx Instructions: Use with insulin pen twice daily Dx:E11.9 (DME) FreeStyle Shlomo 2 Sensor Kit See Rx Instructions .ROUTE .COMPLEX Qty: 2 5RF Dose Instruction: DIRECTED TO CHECK BLOOD SUGARS CONTINUOUSLY (REPLACE EVERY 14 DAYS) Rx Instructions: DIRECTED TO CHECK BLOOD SUGARS CONTINUOUSLY (REPLACE EVERY 14 DAYS) metoprolol succinate 25 mg tablet extended release 24 hr 25 mg PO DAILY Qty: 90 1RF atorvastatin 40 mg tablet 40 mg PO QAM Qty: 90 1RF (DME) Oxygen Home E0424 Liters Per Minute See Rx Instructions .Route Qty: 1 0RF Rx Instructions: As directed Ozempic 2 mg/dose (8 mg/3 mL) pen injector 2 mg subcut WK Qty: 3 5RF Rx Instructions: Monday ketoconazole 2 % cream 1 applic topical DAILY Qty: 30 1RF fluoxetine 20 mg capsule 40 mg PO QAM Rx Instructions: TAKES 2 TABLETS DAILY (DME) Shower Chair Misc See Rx Instructions .Route Qty: 1 0RF Rx Instructions: Shower transfer bench-G62.9 aspirin [[place] Low Dose Aspirin] 81 mg Tablet,Delayed Release (Dr/Ec) 162 mg PO QAM lorazepam 0.5 mg tablet 0.5 mg sublingual Q6H PRN (Reason: Anxiety) Jardiance 10 mg tablet 10 mg PO QAM Qty: 30 0RF diclofenac sodium [Voltaren Arthritis Pain] 1 % gel 4 g topical QID PRN (Reason: Pain) ondansetron HCl 4 mg tablet 4 mg PO Q6H PRN (Reason: NAUSEA/VOMITING) Qty: 10 0RF Changed omeprazole 40 mg capsule,delayed release(DR/EC) 40 mg PO DAILY Qty: 30 2RF Held spironolactone 50 mg tablet 50 mg PO BID Qty: 180 1RF Hold Instructions: please hold until you see Dr Frazier torsemide 100 mg Tablet 100 mg PO QAM Hold Instructions: Resume on 01/26/24. Discontinued celecoxib [Celebrex] 200 mg capsule 200 mg PO DAILY Qty: 7 0RF Discharge Orders: Discharge Order (Routine); Ordered 01/24/24 Ordered By: Damian Rivera Admission Data Admit Date/Time: 01/22/24 21:33 Attending Provider: Damian Rivera Admit Provider: Joyce Restrepo Primary Care Provider: Melissa Frazier Other Providers: Joyce Restrepo Other Interventions: Discharge Summary Assessment (RN) Last Done: 01/24/24 17:38 Coding Diagnoses Sepsis A41.9 Sepsis acute organ dysfunction status: unspecified Sepsis type: sepsis due to unspecified organism Nausea & vomiting R11.2 Vomiting type: unspecified Abdominal pain R10.10 Abdominal location: upper abdomen, unspecified Hypertension I10 Gastroesophageal reflux disease, esophagitis presence not specified K21.9 Esophagitis presence: esophagitis presence not specified Obstructive sleep apnea G47.33 CKD (chronic kidney disease) stage 3, GFR 30-59 ml/min N18.30 Chronic kidney disease stage 3 subtype: unspecified whether 3a or 3b Type 2 diabetes mellitus E11.9 Dizziness R42 Leukocytosis D72.829
[2024-01-25 13:37] LABS: Epstein Barr Virus Early Ag Ab <9.00 U/mL
--- NOTE | 2024-01-25 21:06 | Electrocardiogram Report ---
Test Reason : Blood Pressure : / mmHG Vent. Rate : 105 BPM Atrial Rate : 105 BPM P-R Int : 158 ms QRS Dur : 128 ms QT Int : 342 ms P-R-T Axes : 008 -16 020 degrees QTc Int : 452 ms Sinus tachycardia with Premature atrial complexes Right bundle branch block Abnormal ECG When compared with ECG of 20-JAN-2024 23:18, No significant change was found Confirmed by Alfredo Story ([id number]) on 01/25/2024 9:06:09 PM Referred By: Confirmed By:Alfredo Story
[2024-01-26 02:22] LABS: Babesia microti DNA Not Detected (Not Detected)
[2024-01-28 09:18] LABS: Parvovirus IgG 0.1 (<0.9); Parvovirus IgM 0.1 (<0.9)
[2024-01-28 14:07] LABS: Ehrlichia chaff DNA Bld Negative (Negative)
[2024-01-30 23:27] LABS: Q Fever IgG, Phase I POSITIVE; Q Fever Phase I IgM Antibody NEGATIVE; Q Fever Phase II IgG Antibody POSITIVE; Q Fever Phase II IgM Antibody NEGATIVE; R. typhi IgG Ab NOT DETECTED; R. typhi IgM Ab NOT DETECTED; RMSF IgG Ab NOT DETECTED; RMSF IgM Ab NOT DETECTED
[2024-01-31 09:57] LABS: Q Fever IgG Phase II Ttr Rflx 1:32 titer; Q Fever IgG,Phase I Titer(Rflx 1:16 titer
== END 2024-01-24 18:28 | disposition home or self-care (01) ==
LOC: ED 14:50 → 3E 14:50 → SUATTDRO 21:33 → 3E 23:41

== ENCOUNTER 2024-06-03 08:43 | Inpatient (IN) ==
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
[2024-06-03 09:37] LABS: Basophils # (auto) 0.05 K/uL (0.00-0.20); Basophils % (auto) 0.5 %; Eosinophils # (auto) 0.35 K/uL (0.00-0.50); Eosinophils % (auto) 3.5 %; Hematocrit (blood only) 46.8 % (42.0-52.0); Hemoglobin 14.6 g/dl (14.0-18.0); Immature Granulocytes # (auto) 0.03 K/uL (0.01-0.20); Immature Granulocytes % (auto) 0.3 %; Lymphocytes # (auto) 2.18 K/uL (1.20-3.40); Lymphocytes % (auto) 21.9 %; Mean Corpuscular Hemoglobin 26.3 pg (25.0-34.0); Mean Corpuscular Hgb Conc 31.2 g/dL (32.0-36.0); Mean Corpuscular Volume 84.2 fL (80.0-100.0); Mean Platelet Volume 10.7 fL (9.4-12.4); Monocytes # (auto) 1.09 K/uL (0.11-0.59); Neutrophils # (auto) 6.24 K/uL (1.40-6.50); Neutrophils % (auto) 62.8 %; Platelet Count 272 K/uL (130-400); RDW Coefficient of Variation 14.4 % (11.5-14.5); Red Blood Count 5.56 M/uL (4.70-6.10); White Blood Count 9.94 K/ul (4.8-10.8)
[2024-06-03 10:00] LABS: Albumin Globulin Ratio 1.3 (0.9-2); Bilirubin,Total 0.5 mg/dl (0.2-1.0); Creatinine Clr Calc Pharmacy 68.4 ml/min; Est GFR (African American) 67.2 ml/min; Potassium 3.7 mmol/L (3.5-5.1)
--- NOTE | 2024-06-03 12:11 | History & Physical Report ---
Date of Service June 03, 2024 Assessment & Plan (1) Abscess: Plan: Infected cyst Failed outpatient Doxy and Augmentin Suspect underlying abscess. Soft tissue ultrasound ordered and pending No leukocytosis Patient is not septic Procalcitonin is negative While there is a pocket of productive abscess which may have caused appropriate antibiotics to fail, has had significant worsening with epidermal inclusion cyst she is very large tender and with abscess. Will include MRSA coverage. Antibiotics switched to Rocephin/Flagyl/daptomycin. Atorvastatin held while on Dapto. Reconsulted for incision and drainage, Dr. Trotter following. Recommended IV antibiotics to come before any intervention, will follow for ultrasound results RCRI class II risk due to history of CHF. He does not have ischemic heart disease or recent anginal symptoms, no TIA/stroke, he is diabetic but has not had preoperative treatment with insulin, and baseline creatinine is less than 2. 6% 30-day mortality. May proceed to operative intervention as scheduled. Will treat with antibiotics on admission, no surgical intervention anticipated 06/03. DM2/heart healthy diet started. N.p.o. at midnight. DVT ppx heparin, ho ld prior to sx (2) Restrictive lung disease secondary to obesity: Plan: Restrictive cardiomyopathy, dyslipidemia Will follow-up with cardiology, did not have any imaging in many years to follow-up on this 2018 cardiac catheterization mild nonocclusive coronary disease Followed with cardiology 03/2024. No anginal symptoms. COOPER which had improved with weight loss Last echo 05/23/2024 with EF 55%, grade 1 diastolic dysfunction. No regional wall motion abnormalities. Septal motion consistent with left bundle branch blo ck was noted. Patient is on torsemide 100 mg daily, last took this 06/02/2024 Clinically euvolemic at time of assessment No ischemic symptoms or acute decompensation recommended for optimization prior to surgical intervention Metoprolol continued No history of stents, aspirin held pending surgical intervention Repeat baseline preoperative EKG pending (3) Diabetes mellitus type 2, insulin dependent: Plan: ype II DM Takes Ozempic on Tuesdays Home antiglycemic's held, basal bolus insulin while admitted (4) Chronic diastolic heart failure, NYHA class 3: Plan: Euvolemic on admission (5) GERD (gastroesophageal reflux disease): Plan: GERD PPI continued Plan Prophylaxis: Heparin subcu Diet: Heart healthy/DM2, n.p.o. midnight prior to any anticipated surgery CODE STATUS: Full code Disposition: [facility] History of Present Illness Primary Care Provider: Melissa Frazier MD Jose Elias is a 79-year-old male with a past medical history of an infected left shoulder cyst, anxiety/depression on sertraline who was seen 05/20 at [facility] for a sebaceous cyst with overlying cellulitis/infection placed on doxycycline, 05/29 was worsened and subsequently had I&D performed and was switched to oral Augmentin due to Proteus positive cultures, 06/03 presents with continued worsening with discomfort swelling and pain and is recommended for admission for infected suspected sebaceous cyst failing outpatient antibiotics Jose Elias seems bedside. He reports that he had a painful cyst on his left neck/shoulder which has been gradually worsening. Has enlarged and become very painful to him, was on antibiotics at the beginning of the month and then had the area aspirated and cultured had some initial improvement around the aspiration but then has progressively worsened and is now extremely painful to the touch. Denies fever, has had some chills. Denies night sweats. Has a lot of pain around the area. Other than the pain radiating from the cyst he denies chest pain, chest pressure, shortness of breath. No syncope/presyncope. history of restrictive cardiomyopathy which greatly improved with weight loss. He also had a history of CHF and lower extremity edema for which she is on 100 mg of torsemide, but which has been extremely well-controlled and seems to have resolved with weight loss. He reports that he does not have any anginal pain when walking normally. No chest pain at rest recently. Endorses a history of diabetes well-controlled with no recent hospitalizations related to his diabetes. He is not on insulin prior to admission. Anxiety/depression adequately controlled on sertraline. He notes that he does have a history of worsened depression following general anesthesia, and 1st nerve blocks and local if possible because he notes he does not seem to have a reaction to these. He will discuss this with his anesthesia consultation presurgically. He denies allergies to anesthesia and medications other than contrast. Full code Allergies Allergy/AdvReac Type Severity Reaction Status Date / Time adhesive tape Allergy Mild Redness of Verified 05/20/24 15:19 Skin Iodinated Contrast Media AdvReac Intermediate Gastrointestinal Verified 05/20/24 15:19 Upset iodine AdvReac Unknown "iodine Verified 05/20/24 15:19 solution caused unknown" Home Medications Medication Instructions Recorded Confirmed Type lorazepam 0.5 mg tablet 0.5 mg sublingual Q6H PRN Anxiety 12/26/21 06/03/24 History empagliflozin 10 mg tablet 10 mg PO QAM #30 tabs 01/22/22 06/03/24 Rx (Jardiance) Oxygen Home #1 ea 05/31/22 05/20/24 Rx flash glucose scanning reader #1 ea 06/02/22 05/20/24 Rx (FreeStyle Shlomo 2 [place]) pen needle, diabetic 31 gauge x #200 ea 06/13/22 05/20/24 Rx 5/16" (BD Ultra-Fine Short Pen Needle) Shower Chair #1 ea 02/15/23 05/20/24 Rx ketoconazole 2 % topical cream 1 applic topical DAILY #30 grams 08/01/23 06/03/24 Rx diclofenac sodium 1 % topical gel 4 g topical QID PRN Pain 01/20/24 06/03/24 History (Voltaren Arthritis Pain) torsemide 100 mg tablet 100 mg PO QAM 01/23/24 06/03/24 History omeprazole 40 mg capsule,delayed 40 mg PO DAILY #30 caps 01/24/24 06/03/24 Rx release ondansetron HCl 4 mg tablet 4 mg PO Q6H PRN NAUSEA/VOMITING 01/24/24 06/03/24 Rx #10 tabs famotidine 40 mg tablet 40 mg PO PM #90 tabs 03/20/24 06/03/24 Rx flash glucose sensor (FreeStyle #2 KITS 03/25/24 05/20/24 Rx Shlomo 2 Sensor kit) semaglutide 2 mg/dose (8 mg/3 mL) 2 mg (0.75 mL) subcut WK #3 mL 04/10/24 06/03/24 Rx subcutaneous pen injector (Ozempic) aspirin 81 mg tablet,delayed 81 mg PO QAM 04/16/24 06/03/24 History release ([place] Low Dose Aspirin) lactulose 10 gram/15 mL oral 10 g (15 mL) PO DAILY PRN 04/16/24 06/03/24 Rx solution constipation #237 mL sildenafil 100 mg tablet (Viagra) 100 mg PO DAILY PRN sexual 04/16/24 06/03/24 Rx activity #30 tabs potassium chloride 20 mEq 20 meq PO DAILY #5 tabs 04/17/24 06/03/24 Rx tablet,extended release sertraline 100 mg tablet 100 mg PO DAILY #90 tabs 04/25/24 06/03/24 Rx atorvastatin 40 mg tablet 40 mg PO UD 05/29/24 06/03/24 History metoprolol succinate 25 mg 25 mg PO UD 05/29/24 06/03/24 History tablet,extended release 24 hr amoxicillin 875 mg-potassium 1 tab PO BID #20 tabs 05/31/24 06/03/24 Rx clavulanate 125 mg tablet Past Med/Surg History Problem List Type 2 diabetes mellitus Hypokalemia (Acute) Abscess (Acute) Chest pain (Acute) Closed head injury (Acute) Patellar fracture (Acute) Anxiety and depression Atherogenic dyslipidemia Q fever Weakness (Acute) Sepsis (Acute) Hypertension Leukocytosis Shoulder pain, right Testicular nodule Restrictive cardiomyopathy GERD (gastroesophageal reflux disease) Complete rotator cuff tear of left shoulder (01/08/14) Obesity hypoventilation syndrome Chronic diastolic heart failure BPH (benign prostatic hyperplasia) Depression Obstructive sleep apnea CKD (chronic kidney disease) stage 3, GFR 30-59 ml/min (Acute) Morbid obesity Constipation Trigeminal neuralgia of left side of face Lower back pain Neuropathy Lumbar radiculopathy Restrictive lung disease secondary to obesity Medical History History of septic arthritis History of pressure ulcer rt ankle stage 2 Right knee pain Hypoxia Diabetes mellitus type 2, insulin dependent Degenerative disc disease Osteoarthritis BPH (benign prostatic hyperplasia) Hyperlipidemia Hypertension Chronic diastolic heart failure, NYHA class 3 Nonobstructive atherosclerosis of coronary artery H/O deep venous thrombosis 5+ yrs ago s/p fall Pulmonary emphysema GERD (gastroesophageal reflux disease) Sleep apnea BIPAP Restrictive cardiomyopathy Surgical History History of open reduction and internal fixation (ORIF) procedure LEFT WRIST (HARDWARE REMOVED) 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) History of esophagogastroduodenoscopy (EGD) History of herniorrhaphy multiple History of tooth extraction History of cataract surgery RT/LEFT Difficult intubation "Elective" glidescope noted on 08/2018 [facility] record Status post total hip replacement, left History of colonoscopy History of arthroscopy RIGHT SHOULDER Hx of transurethral resection of prostate History of total knee replacement RIGHT/LEFT History of cardiac cath MULTIPLE (NO STENTS PLACED) MOST RECENT= 2018 S/P cholecystectomy Family History Mother Stroke Alzheimer disease Father MVA (motor vehicle accident) Sister Breast cancer Daughter Brain tumor Denies family history of Ovarian cancer Prostate cancer Myocardial infarction Colorectal cancer Social History Smoking Status: Former smoker Tobacco Type: Cigarettes Age Started Using Tobacco: 18; Age Quit Using Tobacco: 30; Cigarettes Per Day: 1-2 ppd; Second Hand Exposure: No; Do You Dip or Chew Tobacco: No; Hx Alcohol Use: No Hx Substance Use: No Preferred Language: Senegalese Communication Ability: Effective Visual Impairment: No Limitations Hearing Ability: Normal Digital Marketing Associate Required: No Beliefs That Will Affect Care: None marital status: Current Living Situation: Spouse Current Living Situation Comment: Lives with Bridgett and grandson current occupational status: retired 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 NAD. Cooperative. HEENT: Atraumatic, normocephalic. Vision and hearing grossly intact Skin: Left superior medial shoulder/neck with large area of swelling, erythema, and severe tenderness with central pore consistent with infected epidermal inclusion cyst. No drainage at time of assessment. Pulm: CTAB A&P. -wheezes, -rales, -rhonchi. Symmetrical chest rise. No increased work of breathing. No respiratory distress. Cardiac: RRR, -mrg. Radial pulses intact and symmetrical. Abdominal: Nontender, nondistended, soft. BS present. Extremities: No lower extremity edema Results & Data Results & Data Vital Signs (Past 12 Hours) Vital Signs Temp Pulse Pulse Resp BP BP Pulse Ox 06/03/24 11:12 80 19 137/86 96 08/19/24 08:49 36.4 C L 98 H 20 140/81 96 O2 Del Method 06/03/24 11:12 Room Air 06/03/24 08:49 Room Air PG Care Time/CCT Total # of Minutes Spent Total Time Spent with Patient: Total time spent is greater than 50% in coordination of care (as documented) at patient's floor/unit and/or counseling patient: Coding Level of Care Code 35741 INT INP/OBS CARE 75MIN Diagnoses Abscess L02.91 Restrictive lung disease secondary to obesity J98.4; E66.9 Diabetes mellitus type 2, insulin dependent E11.9; Z79.4 Chronic diastolic heart failure, NYHA class 3 I50.32 Gastroesophageal reflux disease, esophagitis presence not specified K21.9 Esophagitis presence: esophagitis presence not specified (5) GERD (gastroesophageal reflux disease) Esophagitis presence: esophagitis presence not specified Qualified Code(s): K21.9 - Gastro-esophageal reflux disease without esophagitis
--- NOTE | 2024-06-03 12:17 | Ultrasound Report ---
ULTRASOUND SOFT TISSUES LEFT UPPER BACK CLINICAL HISTORY: Shoulder infection. Painful lump. COMPARISON STUDY: Chest CT dated 05/27/2024. CT of the neck dated 02/11/2022. FINDINGS: Real-time grayscale and color flow sonography of the soft tissues of the left upper back/po sterior shoulders was performed at the indicated site of interest. There is edema within the soft tis sues at the site with a complex fluid collection. This measures 3.4 x 1.4 x 3.2 cm and shows signific ant peripheral hyperemia. This is located approximately 6 mm deep to the dermal surface. IMPRESSION: There is a 3.4 cm complex fluid collection, deep to the dermal surface at the site of int erest. This likely represents an abscess or possibly an infected sebaceous cyst. Clinical correlation will be required and clinical follow-up to resolution is recommended. Dictated: 06/03/2024 11:35 AM Transcribed: 06/03/2024 11:54 AM Andrzej [id number] [email or web address] Electronically signed by: Don Toledo M.D. 06/03/2024 12:15 PM
[2024-06-03] MEDS: cefTRIAXone SODIUM 2,000 MG/50 ML BAG IV SCH (13:13)
[2024-06-03] MEDS: metroNIDAZOLE 500 MG/100 ML BAG IV SCH (13:23)
[2024-06-03] MEDS ORDERED: POLYETHYLENE (MIRALAX) 17 GM PACK PO PRN (13:50)
[2024-06-03] MEDS ORDERED: GLUCOSE 10 TAB/TUBE PO PRN (13:50)
[2024-06-03] MEDS ORDERED: ONDANSETRON INJ 2 MG/ML 2 ML VIAL IV PRN (13:50)
[2024-06-03] MEDS ORDERED: GLUCAGON FOR INJ 1 MG VIAL SQ PRN (13:50)
[2024-06-03] MEDS ORDERED: CARBOHYDRATES FOR HYPOGLYCEMIA PO PRN (13:50)
[2024-06-03] MEDS ORDERED: DEXTROSE 50% 50 ML SYRINGE IV PRN (13:50)
[2024-06-03] MEDS ORDERED: GLUCOSE 40% GEL 15 GM TUBE PO PRN (13:50)
--- NOTE | 2024-06-03 14:14 | Surgery Consultation ---
Date of Consultation June 03, 2024 Assessment & Plan (1) Abscess: Ultrasound confirms soft tissue abscess. Failing conservative management. Recommend admission for IV antibiotics. Will plan incision and drainage tomorrow in the operating room. Discussed options and risks and he is agreeable. (2) Type 2 diabetes mellitus: (3) Morbid obesity: History of Present Illness Attending Physician: Antonio Cabezas MD History of Present Illness 79 year old with a several week hx of a left shoulder cyst which has become infected and has failed conservative management. It is exquisitely tender and getting larger. Allergies Allergy/AdvReac Type Severity Reaction Status Date / Time adhesive tape Allergy Mild Redness of Verified 05/20/24 15:19 Skin Iodinated Contrast Media AdvReac Intermediate Gastrointestinal Verified 05/20/24 15:19 Upset iodine AdvReac Unknown "iodine Verified 05/20/24 15:19 solution caused unknown" Home Medications Medication Instructions Recorded Confirmed Type lorazepam 0.5 mg tablet 0.5 mg sublingual Q6H PRN Anxiety 12/26/21 06/03/24 History empagliflozin 10 mg tablet 10 mg PO QAM #30 tabs 01/22/22 06/03/24 Rx (Jardiance) Oxygen Home #1 ea 05/31/22 05/20/24 Rx flash glucose scanning reader #1 ea 06/02/22 05/20/24 Rx (FreeStyle Shlomo 2 [place]) pen needle, diabetic 31 gauge x #200 ea 06/13/22 05/20/24 Rx 5/16" (BD Ultra-Fine Short Pen Needle) Shower Chair #1 ea 02/15/23 05/20/24 Rx ketoconazole 2 % topical cream 1 applic topical DAILY #30 grams 08/01/23 06/03/24 Rx diclofenac sodium 1 % topical gel 4 g topical QID PRN Pain 01/20/24 06/03/24 History (Voltaren Arthritis Pain) torsemide 100 mg tablet 100 mg PO QAM 01/23/24 06/03/24 History omeprazole 40 mg capsule,delayed 40 mg PO DAILY #30 caps 01/24/24 06/03/24 Rx release ondansetron HCl 4 mg tablet 4 mg PO Q6H PRN NAUSEA/VOMITING 01/24/24 06/03/24 Rx #10 tabs famotidine 40 mg tablet 40 mg PO PM #90 tabs 03/20/24 06/03/24 Rx flash glucose sensor (FreeStyle #2 KITS 03/25/24 05/20/24 Rx Shlomo 2 Sensor kit) semaglutide 2 mg/dose (8 mg/3 mL) 2 mg (0.75 mL) subcut WK #3 mL 04/10/24 06/03/24 Rx subcutaneous pen injector (Ozempic) aspirin 81 mg tablet,delayed 81 mg PO QAM 04/16/24 06/03/24 History release (K[place]ton Low Dose Aspirin) lactulose 10 gram/15 mL oral 10 g (15 mL) PO DAILY PRN 04/16/24 06/03/24 Rx solution constipation #237 mL sildenafil 100 mg tablet (Viagra) 100 mg PO DAILY PRN sexual 04/16/24 06/03/24 Rx activity #30 tabs potassium chloride 20 mEq 20 meq PO DAILY #5 tabs 04/17/24 06/03/24 Rx tablet,extended release sertraline 100 mg tablet 100 mg PO DAILY #90 tabs 04/25/24 06/03/24 Rx atorvastatin 40 mg tablet 40 mg PO UD 05/29/24 06/03/24 History metoprolol succinate 25 mg 25 mg PO UD 05/29/24 06/03/24 History tablet,extended release 24 hr amoxicillin 875 mg-potassium 1 tab PO BID #20 tabs 05/31/24 06/03/24 Rx clavulanate 125 mg tablet Patient History Medical History Type 2 diabetes mellitus History of septic arthritis History of pressure ulcer rt ankle stage 2 Right knee pain Hypoxia Diabetes mellitus type 2, insulin dependent Degenerative disc disease Osteoarthritis BPH (benign prostatic hyperplasia) Hyperlipidemia Hypertension Chronic diastolic heart failure, NYHA class 3 Nonobstructive atherosclerosis of coronary artery H/O deep venous thrombosis 5+ yrs ago s/p fall Pulmonary emphysema GERD (gastroesophageal reflux disease) Sleep apnea BIPAP Restrictive cardiomyopathy Surgical History History of open reduction and internal fixation (ORIF) procedure LEFT WRIST (HARDWARE REMOVED) 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) History of esophagogastroduodenoscopy (EGD) History of herniorrhaphy multiple History of tooth extraction History of cataract surgery RT/LEFT Difficult intubation "Elective" glidescope noted on 08/2018 [facility] record Status post total hip replacement, left History of colonoscopy History of arthroscopy RIGHT SHOULDER Hx of transurethral resection of prostate History of total knee replacement RIGHT/LEFT History of cardiac cath MULTIPLE (NO STENTS PLACED) MOST RECENT= 2018 S/P cholecystectomy Family History Mother Stroke Alzheimer disease Father MVA (motor vehicle accident) Sister Breast cancer Daughter Brain tumor Denies family history of Ovarian cancer Prostate cancer Myocardial infarction Colorectal cancer Social History Smoking Status: Former smoker Tobacco Type: Cigarettes Age Started Using Tobacco: 18; Age Quit Using Tobacco: 30; Cigarettes Per Day: 1-2 ppd; Second Hand Exposure: No; Do You Dip or Chew Tobacco: No; Hx Alcohol Use: No Hx Substance Use: No Preferred Language: Argentine Communication Ability: Effective Visual Impairment: No Limitations Hearing Ability: Normal Floor Plan Adjuster Required: No Beliefs That Will Affect Care: None marital status: Current Living Situation: Spouse Current Living Situation Comment: Lives with Bridgett and grandson current occupational status: retired 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[employer], 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, 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 How many Children do You have: 2 Feels Safe at Home: Yes Childhood Exposure to Second-Hand Smoke: No Diet: regular Diet Comment: regular Dental Care, Regularly: Yes Physical Activity Frequency: Does not Exercise Seatbelt Use: sometimes Sunscreen Use: No Assistive Devices: Cane, Oxygen - at Night and Raised Toilet Seat Physical Exam Constitutional: WD/WN, vitals as above no acute distress and not ill appearing Eyes: PERRL, conjunctivae normal, anicteric sclerae EOM intact bilaterally ENMT: external ear and nose normal, oropharynx normal Ears: no hearing impairment Neck: trachea midline, no thyromegaly Respiratory: normal respiratory effort; no respiratory distress and does not use accessory muscles Cardiovascular: Rate/Rhythm: regular rate and regular rhythm Gastrointestinal (Abdomen): normal bowel sounds, soft, nontender, no hepatos plenomegaly Skin: On the left shoulder there is a 4 to 5 cm red indurated soft tissue cyst that is currently inflammed. No drainage. Psychiatric: Orientation: alert, oriented x 3 and cooperative Results & Data Vital Signs (Past 12 Hours) Vital Signs Temp Pulse Pulse Resp BP BP Pulse Ox 06/03/24 13:15 36.5 C 80 19 136/80 99 06/03/24 11:12 80 19 137/86 96 06/03/24 08:49 36.4 C L 98 H 20 140/81 96 O2 Del Method 06/03/24 13:15 Room Air 06/03/24 11:12 Room Air 06/03/24 08:49 Room Air PG Care Time/CCT Total # of Minutes Spent Total Time Spent with Patient: Total time spent is greater than 50% in coordination of care (as documented) at patient's floor/unit and/or counseling patient: Coding Level of Care Code INT OBSERVATION CARE 30M LVL 1 Diagnoses Abscess L02.91 Type 2 diabetes mellitus E11.9 Morbid obesity E66.01
[2024-06-03] MEDS: HEPARIN SOD 5,000 UNIT/0.5 ML VIAL SQ SCH (14:52)
[2024-06-03] MEDS: METOPROLOL SUCC 25MG EXT REL TAB PO SCH (16:20)
[2024-06-03] MEDS: DAPTOmycin 375 MG in SYRINGE 0 ML IV SCH (16:21)
[2024-06-03] MEDS: INSULIN ASPART PER UNIT CHARGE SC SCH (17:40)
[2024-06-03] MEDS: LANTUS PER UNIT CHARGE SQ SCH (21:21)
[2024-06-03] MEDS: FAMOTIDINE 40 MG TABLET PO SCH (21:22)
[2024-06-03] MEDS: LORazepam 0.5 MG TAB SL PRN (22:40)
[2024-06-04 07:54] LABS: Basophils # (auto) 0.07 K/uL (0.00-0.20); Basophils % (auto) 0.6 %; Eosinophils # (auto) 0.57 K/uL (0.00-0.50); Eosinophils % (auto) 5.2 %; Hematocrit (blood only) 45.5 % (42.0-52.0); Hemoglobin 14.1 g/dl (14.0-18.0); Immature Granulocytes # (auto) 0.03 K/uL (0.01-0.20); Immature Granulocytes % (auto) 0.3 %; Lymphocytes # (auto) 2.68 K/uL (1.20-3.40); Lymphocytes % (auto) 24.6 %; Mean Corpuscular Hemoglobin 26.3 pg (25.0-34.0); Mean Corpuscular Volume 84.7 fL (80.0-100.0); Mean Platelet Volume 10.8 fL (9.4-12.4); Monocytes # (auto) 1.18 K/uL (0.11-0.59); Monocytes % (auto) 10.8 %; Neutrophils # (auto) 6.36 K/uL (1.40-6.50); Neutrophils % (auto) 58.5 %; Platelet Count 246 K/uL (130-400); RDW Coefficient of Variation 14.6 % (11.5-14.5); RDW Standard Deviation 44.7 fL (36.4-46.3); Red Blood Count 5.37 M/uL (4.70-6.10); White Blood Count 10.89 K/ul (4.8-10.8)
[2024-06-04] MEDS: ACETAMINOPHEN 325 MG TAB PO PRN (08:12)
[2024-06-04 08:16] LABS: BUN Creatinine Ratio 8.8 (10-20); Calcium 9.8 mg/dl (8.6-10.3); Creatinine Clr Calc Pharmacy 72.3 ml/min; Est GFR (African American) 71.5 ml/min; Est GFR (Non-African American) 61.7 ml/min; Potassium 3.9 mmol/L (3.5-5.1)
--- NOTE | 2024-06-04 08:45 | Electrocardiogram Report ---
Test Reason : Blood Pressure : */* mmHG Vent. Rate : 80 BPM Atrial Rate : 80 BPM P-R Int : 172 ms QRS Dur : 130 ms QT Int : 394 ms P-R-T Axes : 19 -17 22 degrees QTcB Int : 454 ms Normal sinus rhythm Right bundle branch block Abnormal ECG When compared with ECG of 29-May-2024 12:22, No significant change was found Confirmed by García Beard ([id number]) on 06/04/2024 8:44:44 AM Referred By: REFERRED SELF Confirmed By: García Beard
--- NOTE | 2024-06-04 10:26 | History & Physical Bridge Note ---
Date of Service June 04, 2024 History & Physical Bridge Note I have examined the patient, reviewed the History & Physical and in the interval since the performance of the History & Physical I have noted the following changes of clinical significance: no changes noted
[2024-06-04] MEDS ORDERED: LIDOCAINE 2% 2 ML VIAL/AMP(20MG/ML) INFIL ONE (11:27)
[2024-06-04] MEDS ORDERED: ONDANSETRON INJ 2 MG/ML 2 ML VIAL ONE (11:27)
[2024-06-04] MEDS ORDERED: PROPOFOL IV EMULSION 10 MG/ML 20 ML VIAL IV ONE (11:27)
[2024-06-04] MEDS ORDERED: fentaNYL citrate PF 100 MCG/2 ML VIAL ONE (11:27)
--- NOTE | 2024-06-04 11:27 | Anesthesiology Consultation ---
Date of Service June 04, 2024 Assessment & Plan (1) Encounter for pre-operative examination: Chart Review Chart Review: Acceptable Risk for Surgery History Surgery Operation Date: 06/04/24 12:20 Proposed Procedures p Left Shoulder Abscess Incision and Drainage - Parminder Trotter DO Height/Weight Height: 5 ft 11 in Weight: 122.4 kg Allergies Allergy/AdvReac Type Severity Reaction Status Date / Time adhesive tape Allergy Mild Redness of Verified 05/20/24 15:19 Skin Iodinated Contrast Media AdvReac Intermediate Gastrointestinal Verified 05/20/24 15:19 Upset iodine AdvReac Unknown "iodine Verified 05/20/24 15:19 solution caused unknown" Medications Home Medications Medication Instructions Recorded Confirmed Last Taken lorazepam 0.5 mg tablet 0.5 mg sublingual Q6H PRN Anxiety 12/26/21 06/03/24 02/11/22 empagliflozin 10 mg tablet 10 mg PO QAM #30 tabs 01/22/22 06/03/24 05/29/24 (Jardiance) Oxygen Home #1 ea 05/31/22 05/20/24 11/13/22 flash glucose scanning reader #1 ea 06/02/22 05/20/24 11/13/22 (FreeStyle Shlomo 2 [place]) pen needle, diabetic 31 gauge x #200 ea 06/13/22 05/20/24 11/13/22 5/16" (BD Ultra-Fine Short Pen Needle) Shower Chair #1 ea 02/15/23 05/20/24 Unknown ketoconazole 2 % topical cream 1 applic topical DAILY #30 grams 08/01/23 06/03/24 01/21/24 diclofenac sodium 1 % topical gel 4 g topical QID PRN Pain 01/20/24 06/03/24 01/21/24 (Voltaren Arthritis Pain) torsemide 100 mg tablet 100 mg PO QAM 01/23/24 06/03/24 05/29/24 omeprazole 40 mg capsule,delayed 40 mg PO DAILY #30 caps 01/24/24 06/03/24 05/29/24 release ondansetron HCl 4 mg tablet 4 mg PO Q6H PRN NAUSEA/VOMITING 01/24/24 06/03/24 Unknown #10 tabs famotidine 40 mg tablet 40 mg PO PM #90 tabs 03/20/24 06/03/24 Unknown flash glucose sensor (FreeStyle #2 KITS 03/25/24 05/20/24 Unknown Shlomo 2 Sensor kit) semaglutide 2 mg/dose (8 mg/3 mL) 2 mg (0.75 mL) subcut WK #3 mL 04/10/24 06/03/24 Unknown subcutaneous pen injector (Ozempic) aspirin 81 mg tablet,delayed 81 mg PO QAM 04/16/24 06/03/24 05/29/24 release (K[place]ton Low Dose Aspirin) lactulose 10 gram/15 mL oral 10 g (15 mL) PO DAILY PRN 04/16/24 06/03/24 Unknown solution constipation #237 mL sildenafil 100 mg tablet (Viagra) 100 mg PO DAILY PRN sexual 04/16/24 06/03/24 Unknown activity #30 tabs potassium chloride 20 mEq 20 meq PO DAILY #5 tabs 04/17/24 06/03/24 05/29/24 tablet,extended release sertraline 100 mg tablet 100 mg PO DAILY #90 tabs 04/25/24 06/03/24 05/29/24 atorvastatin 40 mg tablet 40 mg PO UD 05/29/24 06/03/24 Unknown metoprolol succinate 25 mg 25 mg PO UD 05/29/24 06/03/24 Unknown tablet,extended release 24 hr amoxicillin 875 mg-potassium 1 tab PO BID #20 tabs 05/31/24 06/03/24 Unknown clavulanate 125 mg tablet Active Medications Generic Name Dose Route Start Last Admin Trade Name Freq PRN Reason Stop Dose Admin Acetaminophen 650 mg 06/03/24 13:50 06/04/24 08:12 Acetaminophen 325 Mg Tab PO 07/03/24 13:49 650 mg Q4H PRN Administration pain/fever Famotidine 40 mg 06/03/24 21:00 06/03/24 21:22 Famotidine 40 Mg Tablet PO 07/03/24 20:59 40 mg PM MORE Administration Heparin Sodium (Porcine) 5,000 units 06/03/24 14:00 06/04/24 05:38 Heparin Sod 5,000 Unit/0.5 Ml Vial SQ 07/03/24 13:59 Not Given Q8 MORE Daptomycin 375 mg/ Syringe 7.5 mls @ 3.75 mls/min 06/03/24 15:30 06/03/24 16:21 IV 06/10/24 15:29 3.75 mls/min Q24H MORE Administration Protocol Ceftriaxone Sodium 2,000 mg in 50 mls @ 100 mls/hr 06/03/24 13:00 06/03/24 13:23 Rocephin IV 06/10/24 12:59 Infused Q24H MORE Infusion Metronidazole 500 mg in 100 mls @ 100 mls/hr 06/03/24 12:45 06/04/24 05:15 Flagyl IV 06/10/24 12:44 Infused Q8H MORE Infusion Protocol Insulin Aspart 0 units 06/03/24 16:30 06/04/24 09:20 Insulin Aspart Per Unit Charge SC 07/03/24 16:29 Not Given ACHS MORE Insulin Glargine 8 units 06/03/24 21:00 06/04/24 09:20 Lantus Per Unit Charge SQ 07/03/24 20:59 8 units BID MORE Administration Lorazepam 0.5 mg 06/03/24 22:32 06/03/24 22:40 Lorazepam 0.5 Mg Tab SL 07/03/24 22:31 0.5 mg Q6H PRN Administration Anxiety Metoprolol Succinate 25 mg 06/03/24 15:45 06/04/24 08:08 Metoprolol Succ 25mg Ext Rel Tab PO 07/03/24 15:44 25 mg DAILY MORE Administration Past Medical History Medical History (Updated 06/04/24 @ 11:27 by Kodi Hodge MD) Restrictive lung disease secondary to obesity CKD (chronic kidney disease) stage 3, GFR 30-59 ml/min History of septic arthritis History of pressure ulcer rt ankle stage 2 Right knee pain Hypoxia Diabetes mellitus type 2, insulin dependent Degenerative disc disease Osteoarthritis BPH (benign prostatic hyperplasia) Hyperlipidemia Hypertension Chronic diastolic heart failure, NYHA class 3 Nonobstructive atherosclerosis of coronary artery H/O deep venous thrombosis 5+ yrs ago s/p fall Pulmonary emphysema GERD (gastroesophageal reflux disease) Sleep apnea BIPAP Restrictive cardiomyopathy Past Family History Family History Mother Stroke Alzheimer disease Father MVA (motor vehicle accident) Sister Breast cancer Daughter Brain tumor Denies family history of Ovarian cancer Prostate cancer Myocardial infarction Colorectal cancer Past Surgical History Surgical History History of open reduction and internal fixation (ORIF) procedure LEFT WRIST (HARDWARE REMOVED) 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) History of esophagogastroduodenoscopy (EGD) History of herniorrhaphy multiple History of tooth extraction History of cataract surgery RT/LEFT Difficult intubation "Elective" glidescope noted on 08/2018 [facility] record Status post total hip replacement, left History of colonoscopy History of arthroscopy RIGHT SHOULDER Hx of transurethral resection of prostate History of total knee replacement RIGHT/LEFT History of cardiac cath MULTIPLE (NO STENTS PLACED) MOST RECENT= 2018 S/P cholecystectomy Social History Smoking Status: Former smoker tobacco type: cigarettes Smoking cigarettes per day: 1-2 ppd Do You Dip or Chew Tobacco: No Hx Alcohol Use: No Hx Substance Use: No substance use type: does not use Physical Exam Vital Signs Last Vital Signs Temp 36.7 C 06/04/24 07:24 Pulse 76 06/04/24 07:24 Resp 18 06/04/24 07:24 BP 147/90 H 06/04/24 07:24 Pulse Ox 100 06/04/24 07:24 O2 Del Method Room Air 06/04/24 07:24 O2 Flow Rate 2 06/03/24 13:40 Testing Laboratory Results 06/04/24 07:28 06/04/24 07:28 06/03/24 09:04 Aerobic Blood Culture - Preliminary Blood No growth in Aerobic bottle after 24 hours. Anaerobic Blood Culture - Preliminary No growth in Anaerobic bottle after 24 hours. Electrocardiogram Date: 06/04/24 Findings: + NSR @ (80) Echocardiogram Date: 05/23/24 EF: 50-55% LV Function: normal Valvular Disease: + no significant valvular disease
[2024-06-04] MEDS: LACTATED RINGER'S 1,000 ML IV SCH (11:44)
[2024-06-04] MEDS ORDERED: ONDANSETRON INJ 2 MG/ML 2 ML VIAL IV PRN (12:13)
[2024-06-04] MEDS ORDERED: ATROPINE SULFATE 0.1 MG/ML 10ML SYR IV PRN (12:13)
[2024-06-04] MEDS ORDERED: MIDAZOLAM HCL 1 MG/ML 2ML VIAL ONE (12:48)
[2024-06-04] MEDS: BUPIVACAINE/EPINEPHRINE 0.5% MPF 1:200,000 30 ML VIAL ONE (13:37)
--- NOTE | 2024-06-04 13:41 | Operative Report ---
PG Post Operative Report Pre & Post Diagnosis Operation Date: 06/04/24 12:20 Pre-Op Diagnosis: infected cyst Post-Op Diagnosis: infected cyst I identified the patient and participated in the time-out.: Yes Procedure Operation Date: 06/04/24 12:20 Actual Procedures p Left Shoulder Abscess Incision and Drainage(Left) - Parminder Trotter DO Surgeon Parminder Trotter DO Sugar Refiner n/a Estimated Blood Loss 5 Findings Consistent with Post-Op Diagnosis Specimens abcess fluid for gram stain/culture Description of Procedure After informed consent was obtained the patient was placed in supine position. IV sedation was administered by anesthesia. After the anesthetic was titrated the patient was placed in a slightly left lateral recumbent position. The region over the visible abscess was sterilely prepped and draped in usual fashion. I began by localizing the skin over it using half percent Marcaine. An 11 blade scalpel was then used to make an incision directly over the abscess. I was able to manually express sebaceous material as well as purulent fluid. A swab was taken and sent for Gram stain culture and sensitivity. After manually expressing all of the debris I then thoroughly irrigated it with sterile saline. Half-inch plain packing was placed followed by gauze and tape. The patient was awakened and transferred to recovery in stable condition. He tolerated the procedure well I attest to the content of the Intraoperative Record and any orders documented therein. Any exceptions are noted below.
[2024-06-04] MEDS: fentaNYL citrate PF 100 MCG/2 ML VIAL IV PRN (13:52)
--- NOTE | 2024-06-04 14:32 | Anesthesiology Progress Note ---
Date of Service June 04, 2024 Anesthesia Post Procedure Vital Signs Vital Signs: Temp Pulse Pulse Resp BP Pulse Ox O2 Del Method 06/04/24 14:15 36.2 C L 64 18 121/80 94 Room Air 06/04/24 14:05 65 18 138/92 94 Room Air 06/04/24 13:55 70 17 138/92 100 Oxymask 06/04/24 13:48 36.1 C L 77 17 115/74 98 Oxymask 06/04/24 11:29 36.8 C 78 20 133/85 97 Room Air 06/04/24 09:30 Room Air 06/04/24 07:24 36.7 C 76 18 147/90 H 100 Room Air 06/03/24 20:45 36.9 C 78 16 147/79 H 97 Room Air 06/03/24 20:00 Room Air O2 Flow Rate 06/04/24 14:15 06/04/24 14:05 06/04/24 13:55 5 06/04/24 13:48 5 06/04/24 11:29 06/04/24 09:30 06/04/24 07:24 06/03/24 20:45 06/03/24 20:00 Pain Intensity Left Upper Back: Pain Intensity: 0 Transfer of Care Handoff Completed per policy Notes Mental Status: alert / awake / arousable Patient Amnestic to Procedure: Yes Nausea / Vomiting: adequately controlled Pain: adequately controlled Airway Patency, RR, SpO2: stable & adequate BP & HR: stable & adequate Hydration State: stable & adequate Anesthetic Complications: no major complications apparent
[2024-06-04] MEDS: TORSEMIDE 100 MG TAB PO SCH (15:07)
[2024-06-04] MEDS: SERTRALINE HCL 100 MG TABLET PO SCH (15:07)
[2024-06-04] MEDS: traMADol HCL 50 MG TABLET PO PRN (19:45)
[2024-06-04] MEDS: ACETAMINOPHEN 325 MG TAB PO SCH (21:06)
--- NOTE | 2024-06-04 22:27 | Hospitalist Progress Note ---
Date of Service June 04, 2024 Assessment & Plan (1) Abscess: Plan: Infected cyst Failed outpatient Doxy and Augmentin Suspect underlying abscess. Soft tissue ultrasound ordered and pending No leukocytosis Patient is not septic Procalcitonin is negative While there is a pocket of productive abscess which may have caused appropriate antibiotics to fail, has had significant worsening with epidermal inclusion cyst she is very large tender and with abscess. Will include MRSA coverage. Antibiotics switched to Rocephin/Flagyl/daptomycin. Atorvastatin held while on Dapto. Reconsulted for incision and drainage, Dr. Trotter following. Recommended IV antibiotics to come before any intervention, will follow for ultrasound results RCRI class II risk due to history of CHF. He does not have ischemic heart disease or recent anginal symptoms, no TIA/stroke, he is diabetic but has not had preoperative treatment with insulin, and baseline creatinine is less than 2. 6% 30-day mortality. May proceed to operative intervention as scheduled. Will treat with antibiotics on admission, S/P I and D on 06/04 Awaiting cultures. DM2/heart healthy diet started. Added tramadol for pain. (2) Restrictive lung disease secondary to obesity: Plan: Restrictive cardiomyopathy, dyslipidemia Will follow-up with cardiology, did not have any imaging in many years to follow-up on this 2018 cardiac catheterization mild nonocclusive coronary disease Followed with cardiology 03/2024. No anginal symptoms. COOPER which had improved with weight loss Last echo 05/23/2024 with EF 55%, grade 1 diastolic dysfunction. No regional wall motion abnormalities. Septal motion consistent with left bundle branch block was noted. Patient is on torsemide 100 mg daily, last took this 06/02/2024 Clinically euvolemic at time of assessment No ischemic symptoms or acute decompensation recommended for optimization prior to surgical intervention Metoprolol continued No history of stents, aspirin held pending surgical intervention (3) Diabetes mellitus type 2, insulin dependent: Plan: ype II DM Takes Ozempic on Tuesdays Home antiglycemic's held, basal bolus insulin while admitted (4) Chronic diastolic heart failure, NYHA class 3: Plan: Euvolemic on admission (5) GERD (gastroesophageal reflux disease): Plan: GERD PPI continued Plan Prophylaxis: Heparin subcu CODE STATUS: Full code Disposition: [facility] Admission and Anticipated Discharge Date Admission Date: June 03, 2024 Subjective Patient reports his shoulder pain is controlled after surgery. Review of Systems Review of Systems: All systems reviewed & are unremarkable except as noted in HPI & below Physical Exam Physical Exam: General: A&Ox3. NAD. Cooperative. HEENT: Atraumatic, normocephalic. Vision and hearing grossly intact Pulm: CTAB A&P. -wheezes, -rales, -rhonchi. Symmetrical chest rise. No increased work of breathing. No respiratory distress. Cardiac: RRR, -mrg. Radial pulses intact and symmetrical. Abdominal: Nontender, nondistended, soft. BS present. Extremities: No lower extremity edema Results & Data Results & Data Vital Signs (Past 12 Hours) Vital Signs Temp Pulse Pulse Resp BP Pulse Ox O2 Del Method 06/04/24 19:42 36.7 C 78 18 128/79 94 Room Air 06/04/24 17:45 36.7 C 91 H 18 102/62 93 Room Air 06/04/24 16:28 36.6 C 77 18 105/66 95 Room Air 06/04/24 15:04 36.7 C 67 18 125/73 97 Room Air 06/04/24 14:40 36.6 C 68 16 122/68 97 Room Air 06/04/24 14:15 36.2 C L 64 18 121/80 94 Room Air 06/04/24 14:05 65 18 138/92 94 Room Air 06/04/24 13:55 70 17 138/92 100 Oxymask 06/04/24 13:48 36.1 C L 77 17 115/74 98 Oxymask 06/04/24 11:29 36.8 C 78 20 133/85 97 Room Air O2 Flow Rate 06/04/24 19:42 06/04/24 17:45 06/04/24 16:28 06/04/24 15:04 06/04/24 14:40 06/04/24 14:15 06/04/24 14:05 06/04/24 13:55 5 06/04/24 13:48 5 06/04/24 11:29 PG Care Time/CCT Total # of Minutes Spent Total Time Spent with Patient: Total time spent is greater than 50% in coordination of care (as documented) at patient's floor/unit and/or counseling patient: Coding Level of Care Code 12057 SUB INP/OBS CARE 2/35MIN Diagnoses Abscess L02.91 Restrictive lung disease secondary to obesity J98.4; E66.9 Diabetes mellitus type 2, insulin dependent E11.9; Z79.4 Chronic diastolic heart failure, NYHA class 3 I50.32 Gastroesophageal reflux disease, esophagitis presence not specified K21.9 Esophagitis presence: esophagitis presence not specified (5) GERD (gastroesophageal reflux disease) Esophagitis presence: esophagitis presence not specified Qualified Code(s): K21.9 - Gastro-esophageal reflux disease without esophagitis
[2024-06-05 07:10] LABS: Basophils # (auto) 0.07 K/uL (0.00-0.20); Basophils % (auto) 0.7 %; Eosinophils # (auto) 0.61 K/uL (0.00-0.50); Eosinophils % (auto) 5.8 %; Hematocrit (blood only) 46.7 % (42.0-52.0); Hemoglobin 14.3 g/dl (14.0-18.0); Immature Granulocytes # (auto) 0.04 K/uL (0.01-0.20); Immature Granulocytes % (auto) 0.4 %; Lymphocytes # (auto) 2.78 K/uL (1.20-3.40); Lymphocytes % (auto) 26.5 %; Mean Corpuscular Hemoglobin 26.5 pg (25.0-34.0); Mean Corpuscular Hgb Conc 30.6 g/dL (32.0-36.0); Mean Corpuscular Volume 86.6 fL (80.0-100.0); Mean Platelet Volume 10.5 fL (9.4-12.4); Monocytes # (auto) 1.06 K/uL (0.11-0.59); Monocytes % (auto) 10.1 %; Neutrophils # (auto) 5.93 K/uL (1.40-6.50); Neutrophils % (auto) 56.5 %; Platelet Count 269 K/uL (130-400); RDW Coefficient of Variation 14.8 % (11.5-14.5); Red Blood Count 5.39 M/uL (4.70-6.10); White Blood Count 10.49 K/ul (4.8-10.8)
[2024-06-05 07:38] LABS: BUN Creatinine Ratio 9.4 (10-20); Calcium 9.5 mg/dl (8.6-10.3); Creatinine Clr Calc Pharmacy 59.7 ml/min; Est GFR (African American) 56.8 ml/min; Potassium 3.7 mmol/L (3.5-5.1)
--- NOTE | 2024-06-05 12:06 | Surgery Progress Note ---
Date of Service June 05, 2024 Assessment & Plan (1) Abscess: Plan: POD 1 Left Shoulder Abscess Incision and Drainage Pt reports post operative pain, uncontrolled with pO tramadol, will switch to oral oxycodone and he can alternate that and oral Tylenol post surgical site CDI , nurse can change drsg per drsg order WBC wnl VSS as above. abcess looks good. packing changed today. ok for d/c. will need home antibiotics. follow up in the office in 1-2 weeks. Admission and Anticipated Discharge Date Admission Date: June 03, 2024 Subjective pt reports doing ok, having pain at post operative surgical site currently on tramadol Review of Systems Integumentary: + wounds Physical Exam Constitutional: cooperative and comfortable; no acute distress Respiratory: normal respiratory effort and able to speak in complete sentences; no respiratory distress Cardiovascular: Rate/Rhythm: regular rate Skin: + wound Results & Data Vital Signs (Past 12 Hours) Vital Signs Temp Pulse Resp BP Pulse Ox O2 Del Method 06/05/24 11:16 97.9 F 76 18 125/71 94 Room Air 06/05/24 08:08 83 120/71 95 Room Air 06/05/24 05:46 98.1 F 76 16 129/74 98 Room Air Results CBC w Diff Results: RBC 5.39 M/uL (4.70-6.10) 06/05/24 WBC 10.49 K/ul (4.8-10.8) 06/05/24 Hgb 14.3 g/dl (14.0-18.0) 06/05/24 Hct 46.7 % (42.0-52.0) 06/05/24 MCV 86.6 fL (80.0-100.0) 06/05/24 MCH 26.5 pg (25.0-34.0) 06/05/24 MCHC 30.6 g/dL (32.0-36.0) L 06/05/24 RDW Standard Deviation 47.0 fL (36.4-46.3) H 06/05/24 RDW Coefficient of Variation 14.8 % (11.5-14.5) H 06/05/24 Plt Count 269 K/uL (130-400) 06/05/24 MPV 10.5 fL (9.4-12.4) 06/05/24 Nucleated RBC Absolute Count (auto) 0.02 K/uL (0-0) H 08/16 12/02 Neutrophils (%) (Auto) 56.5 % 06/05/24 Lymphocytes (%) (Auto) 26.5 % 06/05/24 Monocytes # (Auto) 1.06 K/uL (0.11-0.59) H 06/05/24 Eosinophils # (Auto) 0.61 K/uL (0.00-0.50) H 06/05/24 Immature Granulocyte % (Auto) 0.4 % 06/05/24 Neutrophils # (Auto) 5.93 K/uL (1.40-6.50) 06/05/24 Lymphocytes # (Auto) 2.78 K/uL (1.20-3.40) 06/05/24 Monocytes # (Auto) 1.06 K/uL (0.11-0.59) H 06/05/24 Eosinophils # (Auto) 0.61 K/uL (0.00-0.50) H 06/05/24 Basophils # (Auto) 0.07 K/uL (0.00-0.20) 06/05/24 Immature Granulocyte # (Auto) 0.04 K/uL (0.01-0.20) 4 Nucleated Red Blood Cells % 0.1 % 08/27/17 Red Blood Cell Morphology Unremarkable 05/01/23 PG Care Time/CCT Total # of Minutes Spent Total Time Spent with Patient: Total time spent is greater than 50% in coordination of care (as documented) at patient's floor/unit and/or counseling patient: Coding Level of Care Code 58645 Post Operative Follow-Up Diagnoses Abscess L02.91
--- NOTE | 2024-06-05 14:45 | Hospitalist Progress Note ---
Date of Service June 05, 2024 Assessment & Plan (1) Abscess: Plan: Infected cyst Failed outpatient Doxy and Augmentin Suspect underlying abscess. Soft tissue ultrasound ordered and pending No leukocytosis Patient is not septic Procalcitonin is negative While there is a pocket of productive abscess which may have caused appropriate antibiotics to fail, has had significant worsening with epidermal inclusion cyst she is very large tender and with abscess. Will include MRSA coverage. I&D on 06/04 Antibiotics switched to linezolid, Flagyl and ceftriaxone. May discharge on p.o. linezolid and amox-clav Awaiting cultures. DM2/heart healthy diet started. (2) Restrictive lung disease secondary to obesity: Plan: Restrictive cardiomyopathy, dyslipidemia Will follow-up with cardiology, did not have any imaging in many years to follow-up on this 2018 cardiac catheterization mild nonocclusive coronary disease Followed with cardiology 03/2024. No anginal symptoms. COOPER which had improved with weight loss Last echo 05/23/2024 with EF 55%, grade 1 diastolic dysfunction. No regional wall motion abnormalities. Septal motion consistent with left bundle branch block was noted. Patient is on torsemide 100 mg daily, last took this 06/02/2024 Clinically euvolemic at time of assessment No ischemic symptoms or acute decompensation recommended for optimization prior to surgical intervention Metoprolol continued No history of stents, aspirin held pending surgical intervention (3) Diabetes mellitus type 2, insulin dependent: Plan: ype II DM Takes Ozempic on Tuesdays Home antiglycemic's held, basal bolus insulin while admitted (4) Chronic diastolic heart failure, NYHA class 3: Plan: Euvolemic on admission (5) GERD (gastroesophageal reflux disease): Plan: GERD PPI continued Plan Prophylaxis: Heparin subcu CODE STATUS: Full code Disposition: [facility] Admission and Anticipated Discharge Date Admission Date: June 03, 2024 Subjective Patient feels well. Complains of pain at the surgical site. Otherwise no new complaints. Denies chest pain or shortness of breath. Review of Systems Review of Systems: All systems reviewed & are unremarkable except as noted in Subjective Physical Exam Physical Exam: General: Awake, conversant. Dressing on back of left shoulder Heart: S1, S2/regular rate and rhythm, no murmur rubs or gallops Lungs: Clear to auscultation bilaterally. Normal effort Abdomen: Soft/nontender/nondistended. No hepatosplenomegaly Extremities: No clubbing/cyanosis. No edema Behavior: Appropriate, cooperative Results & Data Results & Data Vital Signs (Past 12 Hours) Vital Signs Temp Pulse Resp BP Pulse Ox O2 Del Method 06/05/24 14:14 36.7 C 79 18 123/75 93 Room Air 06/05/24 11:16 36.6 C 76 18 125/71 94 Room Air 06/05/24 08:08 83 120/71 95 Room Air 06/05/24 05:46 36.7 C 76 16 129/74 98 Room Air Laboratory Results Abnormal lab results 06/04/24 06/04/24 06/05/24 Range/Units 16:54 20:57 06:45 MCHC 30.6 L (32.0-36.0) g/dL RDW Std Deviation 47.0 H (36.4-46.3) fL RDW Coeff of Kartik 14.8 H (11.5-14.5) % Maverick # (Auto) 1.06 H (0.11-0.59) K/uL Eos # (Auto) 0.61 H (0.00-0.50) K/uL BUN/Creatinine Ratio 9.4 L (10-20) Glucose 132 H (70-99(Fasting)) mg/dl POC Glucose 109 H 111 H (70-99) mg/dl 06/05/24 Range/Units 07:35 MCHC (32.0-36.0) g/dL RDW Std Deviation (36.4-46.3) fL RDW Coeff of Kartik (11.5-14.5) % Maverick # (Auto) (0.11-0.59) K/uL Eos # (Auto) (0.00-0.50) K/uL BUN/Creatinine Ratio (10-20) Glucose (70-99(Fasting)) mg/dl POC Glucose 109 H (70-99) mg/dl PG Care Time/CCT Total # of Minutes Spent Total Time Spent with Patient: Total time spent is greater than 50% in coordination of care (as documented) at patient's floor/unit and/or counseling patient: Coding Level of Care Code 60712 SUB INP/OBS CARE 2/35MIN Diagnoses Abscess L02.91 Restrictive lung disease secondary to obesity J98.4; E66.9 Diabetes mellitus type 2, insulin dependent E11.9; Z79.4 Chronic diastolic heart failure, NYHA class 3 I50.32 Gastroesophageal reflux disease, esophagitis presence not specified K21.9 Esophagitis presence: esophagitis presence not specified (5) GERD (gastroesophageal reflux disease) Esophagitis presence: esophagitis presence not specified Qualified Code(s): K21.9 - Gastro-esophageal reflux disease without esophagitis
[2024-06-05] MEDS: LINEZOLID 600 MG/300 ML BAG IV SCH (15:55)
[2024-06-05] MEDS: metroNIDAZOLE 500 MG/100 ML BAG IV SCH (17:37)
[2024-06-05] MEDS: oxyCODONE HCL IR 5 MG TAB (IMMEDIATE RELEASE) PO PRN ×2 (18:24→22:34)
[2024-06-05 20:19] VITALS: BP 144/77; O2SAT 97
[2024-06-06 07:33] VITALS: RESP 18; TEMP 97.7
[2024-06-06 07:43] LABS: Basophils # (auto) 0.06 K/uL (0.00-0.20); Basophils % (auto) 0.6 %; Eosinophils # (auto) 0.54 K/uL (0.00-0.50); Eosinophils % (auto) 5.7 %; Hematocrit (blood only) 46.6 % (42.0-52.0); Immature Granulocytes # (auto) 0.05 K/uL (0.01-0.20); Immature Granulocytes % (auto) 0.5 %; Lymphocytes # (auto) 3.07 K/uL (1.20-3.40); Lymphocytes % (auto) 32.5 %; Mean Corpuscular Hemoglobin 26.1 pg (25.0-34.0); Mean Corpuscular Volume 86.9 fL (80.0-100.0); Mean Platelet Volume 10.9 fL (9.4-12.4); Monocytes # (auto) 1.08 K/uL (0.11-0.59); Monocytes % (auto) 11.4 %; Neutrophils # (auto) 4.66 K/uL (1.40-6.50); Neutrophils % (auto) 49.3 %; Platelet Count 260 K/uL (130-400); RDW Coefficient of Variation 14.6 % (11.5-14.5); RDW Standard Deviation 46.5 fL (36.4-46.3); Red Blood Count 5.36 M/uL (4.70-6.10); White Blood Count 9.46 K/ul (4.8-10.8)
[2024-06-06] MEDS: ATORVASTATIN 40 MG TAB PO SCH (08:17)
[2024-06-06 08:31] LABS: BUN Creatinine Ratio 9.7 (10-20); Blood Urea Nitrogen 15 mg/dl (6-23); Calcium 9.4 mg/dl (8.6-10.3); Carbon Dioxide 32 mmol/L (21-32); Chloride 100 mmol/L (98-107); Creatinine Clr Calc Pharmacy 53.1 ml/min; Est GFR (African American) 49.3 ml/min; Est GFR (Non-African American) 42.5 ml/min; Glucose 120 mg/dl (70-99(Fasting))
--- NOTE | 2024-06-06 09:29 | Discharge Summary ---
Date of Service June 06, 2024 Admission HPI Per Admitting Provider Jose Elias is a 79-year-old male with a past medical history of an infected left shoulder cyst, anxiety/depression on sertraline who was seen 05/20 at [facility] for a sebaceous cyst with overlying cellulitis/infection placed on doxycycline, 05/29 was worsened and subsequently had I&D performed and was switched to oral Augmentin due to Proteus positive cultures, 06/03 presents with continued worsening with discomfort swelling and pain and is recommended for admission for infected suspected sebaceous cyst failing outpatient antibiotics Jose Elias seems bedside. He reports that he had a painful cyst on his left neck/shoulder which has been gradually worsening. Has enlarged and become very painful to him, was on antibiotics at the beginning of the month and then had the area aspirated and cultured had some initial im provement around the aspiration but then has progressively worsened and is now extremely painful to the touch. Denies fever, has had some chills. Denies night sweats. Has a lot of pain around the area. Other than the pain radiating from the cyst he denies chest pain, chest pressure, shortness of breath. No syncope/presyncope. history of restrictive cardiomyopathy which greatly improved with weight loss. He also had a history of CHF and lower extremity edema for which she is on 100 mg of torsemide, but which has been extremely well-controlled and seems to have resolved with weight loss. He reports that he does not have any anginal pain when walking normally. No chest pain at rest recently. Endorses a history of diabetes well-controlled with no recent hospitalizations related to his diabetes. He is not on insulin prior to admission. Anxiety/depression adequately controlled on sertraline. He notes that he does have a history of worsened depression following general anesthesia, and 1st nerve blocks and local if possible because he notes he does not seem to have a reaction to these. He will discuss this with his anesthesia consultation presurgically. He denies allergies to anesthesia and medications other than contrast. Full code Admission Exam Per Admitting Provider General: A&Ox3. NAD. Cooperative. HEENT: Atraumatic, normocephalic. Vision and hearing grossly intact Skin: Left superior medial shoulder/neck with large area of swelling, erythema, and severe tenderness with central pore consistent with infected epidermal inclusion cyst. No drainage at time of assessment. Pulm: CTAB A&P. -wheezes, -rales, -rhonchi. Symmetrical chest rise. No increased work of breathing. No respiratory distress. Cardiac: RRR, -mrg. Radial pulses intact and symmetrical. Abdominal: Nontender, nondistended, soft. BS present. Extremities: No lower extremity edema Principal Diagnosis Left Shoulder Abscess Incision and Drainage Discharge Exam General: Awake, conversant. Dressing on back of left shoulder Heart: S1, S2/regular rate and rhythm, no murmur rubs or gallops Lungs: Clear to auscultation bilaterally. Normal effort Abdomen: Soft/nontender/nondistended. No hepatosplenomegaly Extremities: No clubbing/cyanosis. No edema Behavior: Appropriate, cooperative Discharge Data Allergies Allergy/AdvReac Type Severity Reaction Status Date / Time adhesive tape Allergy Mild Redness of Verified 05/20/24 15:19 Skin Iodinated Contrast Media AdvReac Intermediate Gastrointestinal Verified 05/20/24 15:19 Upset iodine AdvReac Unknown "iodine Verified 05/20/24 15:19 solution caused unknown" Consultations 06/03/24 11:55 ED Decision to Admit Stat 06/03/24 13:50 Consult General Surgery Routine Procedures Performed Operation Date: 06/04/24 12:20 Actual Procedures p Left Shoulder Abscess Incision and Drainage(Left) - Parminder Trotter, DO Ordered Studies 06/03/24 09:00 [facility]/uprback Stat Hospital Course (1) Abscess: Infected cyst Failed outpatient Doxy and Augmentin Underlying abscess No leukocytosis Patient is not septic Procalcitonin is negative While there is a pocket of productive abscess which may have caused appropriate antibiotics to fail, has had significant worsening with epidermal inclusion cyst she is very large tender and with abscess. Included MRSA coverage I&D on 06/04 Cleared for discharge by surgery. Surgery will see the patient outpatient in 1 to 2 weeks. Was treated with IV antibiotics. Will discharge on p.o. linezolid and amox- clav Awaiting cultures. (2) Restrictive lung disease secondary to obesity: Restrictive cardiomyopathy, dyslipidemia Will follow-up with cardiology, did not have any imaging in many years to follow-up on this 2018 cardiac catheterization mild nonocclusive coronary disease Followed with cardiology 03/2024. No anginal symptoms. COOPER which had improved with weight loss Last echo 05/23/2024 with EF 55%, grade 1 diastolic dysfunction. No regional wall motion abnormalities. Septal motion consistent with left bundle branch block was noted. Patient is on torsemide 100 mg daily, Clinically euvolemic at time of assessment No ischemic symptoms or acute decompensation recommended for optimization prior to surgical intervention Metoprolol continued No history of stents (3) Diabetes mellitus type 2, insulin dependent: ype II DM Takes Ozempic on Tuesdays Home antiglycemic's held, basal bolus insulin while admitted (4) Chronic diastolic heart failure, NYHA class 3: Euvolemic on admission (5) GERD (gastroesophageal reflux disease): GERD PPI continued Plan Prophylaxis: Heparin subcu CODE STATUS: Full code Disposition: MedSurg Total Time Total Time Spent Total Time Spent (In Minutes): 35 Discharge Plan Discharge Items Patient Disposition: Home - Self-Care Reason For Visit: INFECTED CYST Discharge Diagnosis: Left Shoulder Abscess Incision and Drainage Condition on Discharge: Good Activity: Per Instructions section Lifting: No more than 25 pounds Bathing Comment: you can shower. no soaking in pools/baths for 2 weeks Exercise/Sports: Wait until after follow-up appointment Non-emergency contact: Surgeon Call non-emergency contact if: your symptoms worsen, your temperature is above 101.5, your wound has increased redness, your wound has increased drainage and your wound pain has increased Follow-up/Referrals: Melissa Frazier MD [Primary Care Provider] - 06/10/24 1:00 pm Parminder Trotter DO [Surgeon] - 06/19/24 1:15 pm (call office for follow up in 2 weeks ) Diet: Carb Consistent or DM2 and Heart Healthy Addtl Attending Provider Instructions: You can remove the packing in your wound this Monday06/07/24. You can rinse with peroxide every other day and cover with a dry gauze dressing or bandage. Follow up with general surgery in 2 weeks. Advised to follow-up with PCP in 1 week Pending Studies at Discharge: Yes Studies:: Surgical wound culture Stand-Alone Forms: My [facility] Medications and DC Order Prescriptions: New linezolid 600 mg tablet 600 mg PO BID 5 Days Qty: 10 0RF Continued (DME) FreeStyle Shlomo 2 [place] Misc See Rx Instructions .Route Qty: 1 0RF Rx Instructions: As directed to check blood sugar (scan at least every 8 hours) (DME) pen needle, diabetic [BD Ultra-Fine Short Pen Needle] 31 gauge x 5/16" needle See Rx Instructions .Route Qty: 200 3RF Rx Instructions: Use with insulin pen twice daily Dx:E11.9 famotidine 40 mg tablet 40 mg PO PM Qty: 90 1RF (DME) FreeStyle Shloom 2 Sensor Kit See Rx Instructions .ROUTE .COMPLEX Qty: 2 5RF Dose Instruction: DIRECTED TO CHECK BLOOD SUGARS CONTINUOUSLY (REPLACE EVERY 14 DAYS) Rx Instructions: DIRECTED TO CHECK BLOOD SUGARS CONTINUOUSLY (REPLACE EVERY 14 DAYS) Ozempic 2 mg/dose (8 mg/3 mL) pen injector 2 mg subcut WK Qty: 3 5RF Rx Instructions: Monday sertraline 100 mg tablet 100 mg PO DAILY Qty: 90 1RF (DME) Oxygen Home Liters Per Minute See Rx Instructions .Route Qty: 1 0RF Rx Instructions: As directed ketoconazole 2 % cream 1 applic topical DAILY Qty: 30 1RF (DME) Shower Chair Misc See Rx Instructions .Route Qty: 1 0RF Rx Instructions: Shower transfer bench-G62.9 lactulose 10 gram/15 mL solution 10 g PO DAILY PRN (Reason: constipation) Qty: 237 1RF sildenafil [Viagra] 100 mg tablet 100 mg PO DAILY PRN (Reason: sexual activity) Qty: 30 5RF Rx Instructions: administer 30 minutes to 4 hours before activity aspirin [[place] Low Dose Aspirin] 81 mg tablet,delayed release (DR/EC) 81 mg PO QAM lorazepam 0.5 mg tablet 0.5 mg sublingual Q6H PRN (Reason: Anxiety) Jardiance 10 mg tablet 10 mg PO QAM Qty: 30 0RF diclofenac sodium [Voltaren Arthritis Pain] 1 % gel 4 g topical QID PRN (Reason: Pain) torsemide 100 mg Tablet 100 mg PO QAM Hold Instructions: Resume on 01/26/24. ondansetron HCl 4 mg tablet 4 mg PO Q6H PRN (Reason: NAUSEA/VOMITING) Qty: 10 0RF omeprazole 40 mg capsule,delayed release(DR/EC) 40 mg PO DAILY Qty: 30 2RF potassium chloride 20 mEq tablet extended release 20 meq PO DAILY Qty: 5 0RF atorvastatin 40 mg tablet 40 mg PO UD Rx Instructions: 40 mg po qam per pt he isnt sure of this medication 05/29/25 metoprolol succinate 25 mg tablet extended release 24 hr 25 mg PO UD Rx Instructions: 25 mg po daily per pt he doesnt think he takes this 05/29/24 amoxicillin-pot clavulanate 875-125 mg tablet 1 tab PO BID Qty: 20 0RF Rx Instructions: filled 05/31 Discharge Orders: Discharge Order (Routine); Ordered 06/06/24 Ordered By: Dodie Lombardo/Other Patient Handouts: Nutrition for Wound Healing Admission Data Admit Date/Time: 06/03/24 12:42 Attending Provider: Dodie Abreu Admit Provider: Antonio Cabezas Primary Care Provider: Melissa Frazier Other Providers: Antonio Cabezas; Parminder Trotter Other Interventions: Discharge Summary Assessment (RN) Last Done: 06/06/24 10:12
[2024-06-06 10:14] VITALS: PULSE 65
== END 2024-06-06 10:47 | disposition home or self-care (01) | DRG 603 ==
LOC: ED 08:43 → SUATTDRO 12:42 → 3N 12:42

== ENCOUNTER 2024-07-21 15:04 | Inpatient (IN) ==
--- NOTE | 2024-07-21 15:32 | Emergency Department Note ---
Impression & Plan Stroke-like symptoms ED Provider Note NAME: JORDAN VILLANUEVA AGE: 79 SEX: Male INFORMANT: Patient and ED PROVIDER(S): Devonte Hicks MD CHIEF COMPLAINT: Strokelike symptoms PLAN: Disposition: Admitted Outpatient prescription management: none Referral: None MEDICAL DECISION MAKING: Patient presented with strokelike symptoms. These were going on for greater than 24 hours. Given the different symptoms over the last 48 hours the patient was made a stroke alert. He was found to have left-sided weakness on physical examination. ECG did show a normal sinus rhythm. CT imaging was negative for acute process. Discussed the case with telestroke, Dr. Hackett. Patient is out of the window for TNK as well as thrombolytics. He recommended antiplatelet therapy admission and MR imaging for stroke evaluation. Consultation was made with the [facility]. Patient was evaluated in the ER and admitted for further management Care/management discussed with: regional property manager Level of care consideration(s): After review of the information above and other included data, I feel the patient requires escalation of care to admission Triage Nursing notes: reviewed and agree them. Vital Signs: reviewed and remarkable for no significant abnormalities Additional History obtained from: Patient's . She notes difficulty with balance and word finding over the last 2 days. Chronic Medical/Social Conditions affecting care: Hypertension, diabetes Prior/ Outside/ External records reviewed: none Differential Diagnosis: CVA, TIA, Infection, dehydration, metabolic abnormality, hypo/hyperglycemia, electrolyte disturbance, anemia, hypoxia, cardiac sources, intracerebral event, toxicologic, neurologic, as well as other pathologies. Diagnostics, independently interpreted by me: ECG: twelve-lead ECG reveals a normal sinus rhythm at 92 bpm. Right bundle branch block. No ST elevation or depression. Cardiac Monitoring: Cardiac monitoring ordered by me: The patient was placed on continuous cardiac monitoring and observed. It revealed a normal sinus rhythm at 95 beats per minute without ectopy or evidence of dysrhythmia. Medical decision rules: none Imaging studies: Head CT: A noncontrast CT scan of the head was performed and was negative for tumor, fracture, intracranial hemorrhage, or other acute pathology. Chest x-ray. Findings: A chest x-ray was performed and revealed no pneumothorax, effusion, infiltrate, pulmonary edema, free air under the diaphragm, or wide mediastinum. Impression: No acute disease. HPI: 79 year old Male arrives for evaluation of strokelike symptoms. This started about 48 hours ago and is first described as balance issues. Patient states then he had difficulty with word finding yesterday. He was still having some balance problems. noted that he was having difficulty writing as well.. The patient also notes the following associated symptoms, some weakness on the left side. The patient has taken no medication for relieving factors. Patient rates his pain as a 4 but when asked specifically if he has headache he describes it as more pressure or fullness in his head compared to a typical head pain. Pt denies LOC, headache, fevers, chills, diaphoresis, visual changes, neck pain, chest pain, breathing difficulties, nausea, vomiting, abdominal pain, back pain, melena, hematochezia, urinary symptoms, lymphadenopathy, rash, or other complaints. PAST MEDICAL HISTORY: See Below, hypertension, cardiomyopathy diabetes PAST SURGICAL HISTORY: See Below, SOCIAL HISTORY: See Below, HOME MEDICATIONS: See Below ALLERGIES: See Below VITALS: See Below PHYSICAL EXAMINATION: GENERAL: Awake, alert, well-appearing, in no distress HENT: Normocephalic, atraumatic. Oropharynx unremarkable. EYES: Normal conjunctiva. Sclera non-icteric. PERRLA. EOMI NECK: Inspection normal. Non-tender. Supple. No nuchal rigidity. FROM. No masses. RESPIRATORY: Clear to auscultation. No wheezes. No rales. Normal respiratory effort. CARDIAC: Normal rate. Normal rhythm. No murmurs. No rubs. Extremities warm and well perfused. Pulses equal. No JVD. GI: Soft, non-distended. No tenderness to palpation. No rebound or guarding. No masses. RECTAL: Deferred. MUSCULOSKELETAL: Atraumatic. Chest examination reveals no tenderness. The back is symmetrical on inspection without obvious abnormality. There is no CVA tenderness to palpation. No joint edema. LOWER EXTREMITIES: Calves are equal size bilaterally and non-tender. No edema. No discoloration. NEURO: Normal sensorium. Speech normal. No specific aphasia appreciated. Left upper extremity and left lower extremity drift noted. 4-5 strength in the left upper and left lower extremity. Difficulty with left heel to right chung. SKIN: No rash or jaundice noted. PROCEDURES: none CRITICAL CARE: none OBSERVATION NOTE: none Past Med/Surg History Problem List (Updated 07/21/24 @ 15:32 by Devonte Hicks MD) Stroke-like symptoms (Acute) History of incision and drainage (06/04/24) Left Shoulder Abscess Incision and Drainage(Left) - Parminder Trotter DO Type 2 diabetes mellitus Anxiety and depression Atherogenic dyslipidemia Q fever Weakness (Acute) Sepsis (Acute) Hypertension Leukocytosis Shoulder pain, right Testicular nodule Restrictive cardiomyopathy GERD (gastroesophageal reflux disease) Complete rotator cuff tear of left shoulder (01/08/14) Obesity hypoventilation syndrome Chronic diastolic heart failure BPH (benign prostatic hyperplasia) Depression Obstructive sleep apnea Morbid obesity Constipation Trigeminal neuralgia of left side of face Lower back pain Neuropathy Lumbar radiculopathy Medical History (Updated 07/21/24 @ 15:32 by Devonte Hicks MD) Encounter for pre-operative examination Restrictive lung disease secondary to obesity CKD (chronic kidney disease) stage 3, GFR 30-59 ml/min History of septic arthritis History of pressure ulcer rt ankle stage 2 Right knee pain Hypoxia Degenerative disc disease Osteoarthritis BPH (benign prostatic hyperplasia) Hyperlipidemia Hypertension Chronic diastolic heart failure, NYHA class 3 Nonobstructive atherosclerosis of coronary artery H/O deep venous thrombosis 5+ yrs ago s/p fall Pulmonary emphysema GERD (gastroesophageal reflux disease) Sleep apnea BIPAP Restrictive cardiomyopathy Surgical History (Updated 06/19/24 @ 13:34 by Parminder Trotter DO) History of open reduction and internal fixation (ORIF) procedure LEFT WRIST (HARDWARE REMOVED) 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) History of esophagogastroduodenoscopy (EGD) History of herniorrhaphy multiple History of tooth extraction History of cataract surgery RT/LEFT Difficult intubation "Elective" glidescope noted on 08/2018 [facility] record Status post total hip replacement, left History of colonoscopy History of arthroscopy RIGHT SHOULDER Hx of transurethral resection of prostate History of total knee replacement RIGHT/LEFT History of cardiac cath MULTIPLE (NO STENTS PLACED) MOST RECENT= 2018 S/P cholecystectomy Family History Mother Stroke Alzheimer disease Father MVA (motor vehicle accident) Sister Breast cancer Daughter Brain tumor Denies family history of Ovarian cancer Prostate cancer Myocardial infarction Colorectal cancer Social History Smoking Status: Former smoker Tobacco Type: Cigarettes Age Started Using Tobacco: 18; Age Quit Using Tobacco: 30; Cigarettes Per Day: 1-2 ppd; Second Hand Exposure: No; Do You Dip or Chew Tobacco: No; Hx Alcohol Use: No Hx Substance Use: No Preferred Language: Malaysian Communication Ability: Effective Visual Impairment: No Limitations Hearing Ability: Normal 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 Required: No Beliefs That Will Affect Care: None marital status: Current Living Situation: Spouse Current Living Situation Comment: current occupational status: retired 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[employer], 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, 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 How many Children do You have: 2 Other Information That Helps Us Care for You: No Feels Safe at Home: Yes Safety Concerns: Feels Safe At This Time Childhood Exposure to Second-Hand Smoke: No Diet: regular Diet Comment: regular Dental Care, Regularly: Yes Physical Activity Frequency: Does not Exercise Seatbelt Use: sometimes Sunscreen Use: No Assistive Devices: Oxygen - at Night Allergies Allergies Allergy/AdvReac Type Severity Reaction Status Date / Time adhesive tape Allergy Mild Redness of Verified 07/21/24 16:40 Skin Iodinated Contrast Media AdvReac Intermediate Gastrointestinal Verified 07/21/24 16:40 Upset iodine AdvReac Unknown "iodine Verified 07/21/24 16:40 solution caused unknown" Home Meds Home Medications Medication Instructions Recorded Confirmed diclofenac sodium 1 % topical gel 4 g topical QID PRN Pain 01/20/24 07/21/24 (Voltaren Arthritis Pain) aspirin 81 mg tablet,delayed 81 mg PO QAM 04/16/24 07/21/24 release (K[place]ton Low Dose Aspirin) torsemide 100 mg tablet 50 mg PO QAM 07/15/24 07/21/24 omeprazole 20 mg capsule,delayed 20 mg PO DAILY 07/21/24 07/21/24 release Previous Rx's Medication Instructions Recorded empagliflozin 10 mg tablet 10 mg PO QAM #30 tabs 01/22/22 (Jardiance) Oxygen Home #1 ea 05/31/22 flash glucose scanning reader #1 ea 06/02/22 (FreeStyle Shlomo [address]) pen needle, diabetic 31 gauge x #200 ea 06/13/22 5/16" (BD Ultra-Fine Short Pen Needle) Shower Chair #1 ea 02/15/23 ondansetron HCl 4 mg tablet 4 mg PO Q6H PRN NAUSEA/VOMITING 01/24/24 #10 tabs famotidine 40 mg tablet 40 mg PO PM #90 tabs 03/20/24 flash glucose sensor (FreeStyle #2 KITS 03/25/24 Shlomo 2 Sensor kit) semaglutide 2 mg/dose (8 mg/3 mL) 2 mg (0.75 mL) subcut WK #3 mL 04/10/24 subcutaneous pen injector (Ozempic) sertraline 100 mg tablet 150 mg (1.5 x 100 mg) PO DAILY 90 06/10/24 days #135 tabs atorvastatin 40 mg tablet 40 mg PO UD #90 tabs 07/10/24 Results & Data (ED) Vital Signs Vital Signs - 24 hr 07/21/24 15:07 07/21/24 15:27 07/21/24 15:30 Temperature 36.3 C L Temperature Source Temporal Artery Scan Pulse Rate 93 H 87 100 H Pulse Rate [Apical] Pulse Rate from SpO2 Sensor 86 Pulse Rhythm [Apical] Pulse Strength [Apical] Respiratory Rate 18 22 Respiratory Effort / Characteristics Non-Labored Spontaneous Respiratory Depth Normal Respiratory Pattern Regular Blood Pressure 130/80 Blood Pressure [Left Arm] Blood Pressure Mean 96 Blood Pressure Mean [Left Arm] Blood Pressure Position [Left Arm] Pulse Oximetry 94 95 Oxygen Delivery Method Room Air Sepsis Recent Fever Within 48 Hours No Sepsis New/Unexplained Change in Mental Status N/A Sepsis Action Taken by Nursing No Action Required 07/21/24 15:45 07/21/24 16:00 07/21/24 16:00 Temperature Temperature Source Pulse Rate 105 H 96 H Pulse Rate [Apical] Pulse Rate from SpO2 Sensor Pulse Rhythm [Apical] Pulse Strength [Apical] Respiratory Rate 18 16 Respiratory Effort / Characteristics Respiratory Depth Respiratory Pattern Blood Pressure 111/76 111/76 Blood Pressure [Left Arm] Blood Pressure Mean 87 78 Blood Pressure Mean [Left Arm] Blood Pressure Position [Left Arm] Pulse Oximetry Oxygen Delivery Method Sepsis Recent Fever Within 48 Hours Sepsis New/Unexplained Change in Mental Status Sepsis Action Taken by Nursing 07/21/24 16:07 07/21/24 16:15 07/21/24 16:24 Temperature Temperature Source Pulse Rate 99 H 93 H Pulse Rate [Apical] 90 Pulse Rate from SpO2 Sensor 101 H 93 H Pulse Rhythm [Apical] Regular Pulse Strength [Apical] Normal Respiratory Rate 20 16 21 Respiratory Effort / Characteristics Non-Labored Spontaneous Respiratory Depth Normal Respiratory Pattern Regular Blood Pressure 125/65 125/65 Blood Pressure [Left Arm] 111/76 Blood Pressure Mean 85 85 Blood Pressure Mean [Left Arm] 87 Blood Pressure Position [Left Arm] Lying Pulse Oximetry 94 92 92 Oxygen Delivery Method Room Air Sepsis Recent Fever Within 48 Hours Sepsis New/Unexplained Change in Mental Status Sepsis Action Taken by Nursing 07/21/24 17:01 07/21/24 17:09 Temperature Temperature Source Pulse Rate 96 H Pulse Rate [Apical] Pulse Rate from SpO2 Sensor 91 H Pulse Rhythm [Apical] Pulse Strength [Apical] Respiratory Rate 16 Respiratory Effort / Characteristics Respiratory Depth Respiratory Pattern Blood Pressure 117/91 Blood Pressure [Left Arm] Blood Pressure Mean 96 Blood Pressure Mean [Left Arm] Blood Pressure Position [Left Arm] Pulse Oximetry 91 Oxygen Delivery Method Sepsis Recent Fever Within 48 Hours Sepsis New/Unexplained Change in Mental Status Sepsis Action Taken by Nursing Laboratory Data 07/21/24 15:32 07/21/24 15:32 Lab Results 07/21/24 07/21/24 07/21/24 Range/Units 15:32 15:45 16:03 WBC 12.72 H (4.8-10.8) K/ul RBC 6.13 H (4.70-6.10) M/uL Hgb 16.0 (14.0-18.0) g/dl POC Hgb 17.7 (14.0-18.0) g/dl Hct 50.7 (42.0-52.0) % POC Hct 52 (42-52) % MCV 82.7 (80.0-100.0) fL MCH 26.1 (25.0-34.0) pg MCHC 31.6 L (32.0-36.0) g/dL RDW Std Deviation 45.1 (36.4-46.3) fL RDW Coeff of Kartik 15.2 H (11.5-14.5) % Plt Count 302 (130-400) K/uL MPV 10.5 (9.4-12.4) fL Immature Gran % (Auto) 0.5 % Neut % (Auto) 62.8 % Lymph % (Auto) 22.0 % [place] % (Auto) 12.4 % Eos % (Auto) 1.7 % Baso % (Auto) 0.6 % Neut # (Auto) 7.98 H (1.40-6.50) K/uL Lymph # (Auto) 2.80 (1.20-3.40) K/uL [place] # (Auto) 1.58 H (0.11-0.59) K/uL Eos # (Auto) 0.22 (0.00-0.50) K/uL Baso # (Auto) 0.08 (0.00-0.20) K/uL Immature Gran # (Auto) 0.06 (0.01-0.20) K/uL PT 10.5 (9.0-12.0) Seconds INR 1.0 (0.9-1.1) APTT 26 (21-31) Seconds PTT Ratio 1.0 POC Sodium 134 L (135-144) mmol/L Sodium 134 L (136-145) mmol/L POC Potassium 3.2 L (3.3-5.0) mmol/L Potassium 3.3 L (3.5-5.1) mmol/L POC Chloride 95 L (101-112) mmol/L Chloride 95 L (98-107) mmol/L Carbon Dioxide 29 (21-32) mmol/L POC Total CO2 29 (24-31) mmol/L Anion Gap 10 (3-11) POC Anion Gap 14.0 L (16-25) mmol/L POC BUN 25 H (7-18) mg/dl BUN 23 (6-23) mg/dl Creatinine 1.39 (0.6-1.4) mg/dl POC Creatinine 1.5 H (0.6-1.3) mg/dl Est Cr Clr Drug Dosing Not Reportable eGFR 52.21 BUN/Creatinine Ratio 16.5 (10-20) Glucose 122 H (70-99(Fasting)) mg/dl POC Glucose (other) 122 H (70-99) mg/dl Calcium 11.0 H (8.6-10.3) mg/dl POC Ioniz Calcium Mima 1.26 (1.12-1.32) mmol/l Magnesium 2.1 (1.7-2.4) mg/dl Total Bilirubin 0.6 (0.2-1.0) mg/dl AST 18 (13-39) U/L ALT 17 (7-52) U/L Alkaline Phosphatase 80 (34-104) U/L Troponin I High Sens 9.0 (0-20) pg/ml Total Protein 7.6 (6.0-8.3) gm/dl Albumin 4.1 (3.4-5.0) gm/dl Globulin 3.5 (2.5-4.0) gm/dl Albumin/Globulin Ratio 1.2 (0.9-2) Urine Color Yellow Urine Appearance Clear (Clear) Urine pH 6.5 (4.5-7.5) Ur Specific Issue 1.012 (1.000-1.030) Urine Protein Trace H (Negative) Urine Glucose (UA) 3+ H (Negative) Urine Ketones Negative (Negative) Urine Blood Negative (Negative) Urine Nitrite Negative (Negative) Urine Bilirubin Negative (Negative) Urine Urobilinogen Negative (Negative) Ur Leukocyte Esterase Negative (Negative) Urine WBC (Auto) 0-5 (0-5) /hpf Urine RBC (Auto) 0-2 (0-2) /hpf U Hyaline Cast (Auto) 0-2 (0-2) /lpf U Epithel Cells (Auto) 0-2 (0-2) /hpf Urine Bacteria (Auto) None Seen (None Seen) Blood Type A Positive Antibody Screen NEGATIVE Administered Medications Enoxaparin Sodium (Enoxaparin Inj 40 Mg/0.4 Ml Syr) 40 mg SQ QPM MORE Stop: 08/20/24 20:59 Last Admin: 07/21/24 21:06 Dose: 40 mg Documented By: JOSE Famotidine (Famotidine 40 Mg Tablet) 40 mg PO PM MORE Stop: 08/20/24 20:59 Last Admin: 07/21/24 21:05 Dose: 40 mg Documented By: JOSE Sodium Chloride (Nss) 1,000 mls @ 125 mls/hr IV .Q8H MORE Stop: 07/22/24 02:20 Last Admin: 07/21/24 16:02 Dose: 50 mls/hr Documented By: Insulin Aspart (Insulin Aspart Per Unit Charge) 0 units SC ACHS MORE Stop: 08/20/24 20:59 Last Admin: 07/21/24 21:40 Dose: Not Given Documented By: JOSE Discontinued Medications Aspirin (Aspirin Chew 324 Mg) 324 mg PO NOW STA Stop: 07/21/24 17:27 Last Admin: 07/21/24 17:58 Dose: 324 mg Documented By: Clopidogrel Bisulfate (Clopidogrel Bisulfate 300 Mg Tab) 300 mg PO NOW STA Stop: 07/21/24 17:27 Last Admin: 07/21/24 17:58 Dose: 300 mg Documented By: Potassium Chloride (K Zachary / Wtr) 10 meq in 100 mls @ 100 mls/hr IV ONE ONE Stop: 07/21/24 18:47 Last Admin: 07/21/24 20:58 Dose: Not Given Documented By: JOSE Lorazepam (Lorazepam 1 Mg Tab) 1 mg SL NOW STA Stop: 07/21/24 18:06 Last Admin: 07/21/24 18:10 Dose: 1 mg Documented By: Lorazepam (Lorazepam 1 Mg Tab) 1 mg SL NOW STA Stop: 07/21/24 18:44 Last Admin: 07/21/24 18:51 Dose: 1 mg Documented By: Potassium Chloride (Potassium Chloride Crtab 20 Meq Tabcr) 40 meq PO NOW STA Stop: 07/21/24 20:20 Last Admin: 07/21/24 21:04 Dose: 40 meq Documented By: JOSE Imaging Data Radiologist's Impression: Chest X-Ray 07/21/24 15:18 SINGLE VIEW CHEST CLINICAL HISTORY: Neurologic deficit. Strokelike symptoms. FINDINGS: 2 AP, portable, upright chest radiographs are compared to study dated 06/07/2024. Correlation is made with chest CT dated 05/27/2024. The heart is enlarged but noting atherosclerotic calcification of the thoracic aorta. The pulmonary vasculature is noncongested. Chronic interstitial thickening is similar to previous. There is mild bibasilar scarring/atelectasis. The lungs and pleural spaces are otherwise clear. No pneumothorax is seen. The skeletal structures are osteopenic. The bony thorax is grossly intact. IMPRESSION: Cardiomegaly with no active disease in the chest. ACT 112: Negative or not required by law. Electronically signed by: Don Toledo M.D. 07/21/2024 4:[address] 07/21/24 15:18 CT SCAN OF THE BRAIN WITHOUT IV CONTRAST CLINICAL HISTORY: Neurological deficit. Stroke like symptoms. COMPARISON STUDY: CT of the brain dated 05/27/2024. TECHNIQUE: Unenhanced axial CT scan of the brain is performed from the vertex to the skull base. A dose lowering technique was utilized adhering to the principles of ALARA. The patient was scanned twice due to motion artifact. CT DOSE: 2199.31 mGy.cm FINDINGS: Brain parenchyma: There is age-related involutional change noting moderate subcortical and periventricular microangiopathic disease. There is no hemorrhage, mass effect, or evidence of acute territorial ischemia by CT criteria. [place]-white matter differentiation is preserved. No extra-axial fluid collection is seen. Ventricles, sulci, cisterns: Prominent secondary to involutional change. Intracranial vasculature: There is atherosclerotic calcification of the cavernous carotid and vertebral arteries. Calvarium: Unremarkable. Sinuses and mastoids: The visualized paranasal sinuses are clear. The mastoid air cells are well pneumatized. Orbits: The bony orbits are grossly intact. There are bilateral ocular lens implants. IMPRESSION: There is no hemorrhage, mass effect, or evidence of acute territorial ischemia by CT criteria. ACT 112: Negative or not required by law. Electronically signed by: Don Toledo M.D. 07/21/2024 4:01 PM Head MRA 07/21/24 17:06 MR ANGIOGRAM OF THE BRAIN CLINICAL HISTORY: Left-sided weakness. Difficulty speaking. COMPARISON STUDY: CT angiogram of the brain dated 08/26/2021. MRI of the brain performed concurrently on 07/21/2024. TECHNIQUE: 3-D [id number] MR angiography of the intracranial circulation is performed. 3-D tumble views are created and assessed. IV contrast was not administered for this examination. The examination is degraded by motion artifact. FINDINGS: The internal carotid arteries are widely patent bilaterally, as are the central portions of the anterior and middle cerebral arteries. The vertebrobasilar system and central portions of the posterior cerebral arteries are widely patent. The right vertebral artery is dominant. Evaluation of the peripheral branches is significantly degraded by motion artifact. There is no aneurysm, high-grade stenosis, or focal vessel cutoff seen throughout the intracranial circulation. The brain parenchyma is normal as visualized. IMPRESSION: Unremarkable MR angiogram of the brain noting a significantly motion degraded examination. The peripheral vessels are not well assessed ACT 112: Negative or not required by law. Electronically signed by: Don Toledo M.D. 07/21/2024 7:48 PM Carotid Doppler Study 07/21/24 17:07 ULTRASOUND OF THE CAROTID ARTERIES CLINICAL HISTORY: Stroke like symptoms. COMPARISON STUDY: CT angiogram of the neck dated 08/26/2021. TECHNIQUE: Real-time, grayscale, and color Doppler sonography of the carotid arteries is performed. Images are reviewed in the transverse and longitudinal planes. FINDINGS: The carotid arteries are patent bilaterally and demonstrate antegrade flow. There is mild echogenic atherosclerotic plaque seen in the carotid bulbs. Normal doppler arterial waveforms are seen throughout. Velocity measurements are listed below. Common carotid peak systolic velocity (cm/sec): RIGHT: 91 LEFT: 116 ICA proximal peak systolic velocity (cm/sec): RIGHT: 39 LEFT: 49 ICA mid peak systolic velocity (cm/sec): RIGHT: 41 LEFT: 55 ICA distal peak systolic velocity (cm/sec): RIGHT: 47 LEFT: 42 ICA/CC peak systolic ratio: RIGHT: 0.5 LEFT: 0.5 Antegrade flow was shown in the vertebral arteries. The external carotid arteries are patent. IMPRESSION: 1. There is no sonographic evidence of hemodynamically significant stenosis in the right or left carotid arterial system. 2. Antegrade flow is shown in the vertebral arteries. ACT 112: Negative or not required by law. Electronically signed by: Don Toledo M.D. 07/21/2024 8:00 PM Discharge Plan Visit Data Chief Complaint: TIA Symptoms Stated Complaint: EXPLOSING FEELING IN HEAD, BLURRY VISION, AFASIA ED Provider: Devonte Hicks Discharge Problem: Stroke-like symptoms Patient Disposition: Admitted As Inpatient Discharge Instructions Interventions: ED Discharge Assessment Last Done: 07/21/24 19:31
[2024-07-21 15:54] LABS: Basophils # (auto) 0.08 K/uL (0.00-0.20); Basophils % (auto) 0.6 %; Eosinophils # (auto) 0.22 K/uL (0.00-0.50); Eosinophils % (auto) 1.7 %; Hematocrit (blood only) 50.7 % (42.0-52.0); Immature Granulocytes # (auto) 0.06 K/uL (0.01-0.20); Immature Granulocytes % (auto) 0.5 %; Mean Corpuscular Hemoglobin 26.1 pg (25.0-34.0); Mean Corpuscular Hgb Conc 31.6 g/dL (32.0-36.0); Mean Corpuscular Volume 82.7 fL (80.0-100.0); Mean Platelet Volume 10.5 fL (9.4-12.4); Monocytes # (auto) 1.58 K/uL (0.11-0.59); Monocytes % (auto) 12.4 %; Neutrophils # (auto) 7.98 K/uL (1.40-6.50); Neutrophils % (auto) 62.8 %; Platelet Count 302 K/uL (130-400); RDW Coefficient of Variation 15.2 % (11.5-14.5); RDW Standard Deviation 45.1 fL (36.4-46.3); Red Blood Count 6.13 M/uL (4.70-6.10); White Blood Count 12.72 K/ul (4.8-10.8)
[2024-07-21 16:00] LABS: iSTAT Creatinine 1.5 mg/dl (0.6-1.3); iSTAT Hemoglobin 17.7 g/dl (14.0-18.0); iSTAT Ionized Calcium 1.26 mmol/l (1.12-1.32); iSTAT Potassium 3.2 mmol/L (3.3-5.0)
[2024-07-21] MEDS: SODIUM CHLORIDE 0.9% 1,000 ML IV SCH (16:02)
--- NOTE | 2024-07-21 16:03 | CT Scan Report ---
CT SCAN OF THE BRAIN WITHOUT IV CONTRAST CLINICAL HISTORY: Neurological deficit. Stroke like symptoms. COMPARISON STUDY: CT of the brain dated 05/27/2024. TECHNIQUE: Unenhanced axial CT scan of the brain is performed from the vertex to the skull base. A do se lowering technique was utilized adhering to the principles of ALARA. The patient was scanned twice due to motion artifact. CT DOSE: 2199.31 mGy.cm FINDINGS: Brain parenchyma: There is age-related involutional change noting moderate subcortical and periventri cular microangiopathic disease. There is no hemorrhage, mass effect, or evidence of acute territorial ischemia by CT criteria. [place]-white matter differentiation is preserved. No extra-axial fluid collec tion is seen. Ventricles, sulci, cisterns: Prominent secondary to involutional change. Intracranial vasculature: There is atherosclerotic calcification of the cavernous carotid and vertebr al arteries. Calvarium: Unremarkable. Sinuses and mastoids: The visualized paranasal sinuses are clear. The mastoid air cells are well pneu matized. Orbits: The bony orbits are grossly intact. There are bilateral ocular lens implants. IMPRESSION: There is no hemorrhage, mass effect, or evidence of acute territorial ischemia by CT jazmyn garner. ACT 112: Negative or not required by law. Electronically signed by: Don Toledo M.D. 07/21/2024 4:01 PM
[2024-07-21 16:12] LABS: Alanine Aminotransferase 17 U/L (7-52); Albumin Globulin Ratio 1.2 (0.9-2); Albumin Level 4.1 gm/dl (3.4-5.0); Alkaline Phosphatase 80 U/L (34-104); Anion Gap 10 (3-11); Aspartate Aminotransferase 18 U/L (13-39); BUN Creatinine Ratio 16.5 (10-20); Bilirubin,Total 0.6 mg/dl (0.2-1.0); Blood Urea Nitrogen 23 mg/dl (6-23); Carbon Dioxide 29 mmol/L (21-32); Chloride 95 mmol/L (98-107); Globulin 3.5 gm/dl (2.5-4.0); Glucose 122 mg/dl (70-99(Fasting)); Magnesium 2.1 mg/dl (1.7-2.4); Potassium 3.3 mmol/L (3.5-5.1); Sodium 134 mmol/L (136-145); Total Protein 7.6 gm/dl (6.0-8.3)
--- NOTE | 2024-07-21 16:20 | XRay Report ---
SINGLE VIEW CHEST CLINICAL HISTORY: Neurologic deficit. Strokelike symptoms. FINDINGS: 2 AP, portable, upright chest radiographs are compared to study dated 06/07/2024. Correlatio n is made with chest CT dated 05/27/2024. The heart is enlarged but noting atherosclerotic calcificati on of the thoracic aorta. The pulmonary vasculature is noncongested. Chronic interstitial thickening is similar to previous. There is mild bibasilar scarring/atelectasis. The lungs and pleural spaces ar e otherwise clear. No pneumothorax is seen. The skeletal structures are osteopenic. The bony thorax i s grossly intact. IMPRESSION: Cardiomegaly with no active disease in the chest. ACT 112: Negative or not required by law. Electronically signed by: Don Toledo M.D. 07/21/2024 4:17 PM
[2024-07-21 16:23] LABS: Partial Thromboplastin Time 26 Seconds (21-31); Prothrombin Time 10.5 Seconds (9.0-12.0)
[2024-07-21 16:28] LABS: Appearance Urine Clear (Clear); Bacteria Urine Automated None Seen (None Seen); Bilirubin Urine Negative (Negative); Blood Urine Negative (Negative); Cast Urine Automated 0-2 /lpf (0-2); Color Urine Yellow; Epithelial Cell Urine Auto 0-2 /hpf (0-2); Glucose Urine UA 3+ (Negative); Ketones Urine Negative (Negative); Leukocyte Esterase Urine Negative (Negative); Nitrite Urine Negative (Negative); Protein Urine Trace (Negative); RBC Urine Automated 0-2 /hpf (0-2); Specific Gravity Urine 1.012 (1.000-1.030); Urobilinogen Urine Negative (Negative); WBC Urine Automated 0-5 /hpf (0-5); pH Urine 6.5 (4.5-7.5)
[2024-07-21] MEDS ORDERED: PHARMACIST DISCHARGE MED REC CONSULT PRN (17:04)
--- NOTE | 2024-07-21 17:48 | History & Physical Report ---
Date of Service July 21, 2024 Assessment & Plan (1) Stroke-like symptoms: Plan: This is a 79-year-old male with past medical history of type 2 diabetes, anxiety, depression, hypertension, GERD, BPH who presented to the ED on 07/21/2024 for strokelike symptoms. Head CT negative. CXR: cardiomegaly w/ no active disease in chest. CBC revealing mild leukocytosis of 12.72 BMP: Na 134, K 3.3, kidney function stable s/p 1 IV 10meq K urinalysis negative for infection ASA 324mg and Plavix 300mg given in ED. Continue 81mg PO ASA daily and Plavix 75mg PO daily. Allow for Permissive HTN for the next 24 hours. - hold Torsemide. Currently normotensive Increased atorvastatin to 80mg PO daily. (previously on 40mg PO daily) PT/OT/speech consulted, appreciate recommendations. Dysphagia screen prior to diet, patient currently NPO. Brain MRI/MRA pending Carotid US Doppler pending Last echocardiogram 01/2023: normal AM CBC, BMP, hgb A1c, cholesterol panel. (2) Type 2 diabetes mellitus: Plan: Patient on Jardiance and Ozempic outpatient for management. - hold while inpatient. Sliding scale Novolog Range 110 - 180mg/dl CF 25 AM hgb A1c Plan Chronic conditions: GERD: PPI and Pepcid Mental health: sertraline DVT prophylaxis: Lovenox Diet: NPO pending dysphagia screen Disposition: telemetry Code status: full History of Present Illness Primary Care Provider: Melissa Frazier MD This is a 79-year-old male with past medical history of type 2 diabetes, anxiety, depression, hypertension, GERD, BPH who presented to the ED on 07/21/2024 for strokelike symptoms. The patient was seen and examined at bedside. He was resting comfortably in bed at time of encounter. Patient states that over the last 48 hours or so he has been having symptoms consistent with a head pressure or fullness. He states that yesterday he was at the store and was unable to speak. He states that this did not take long to resolve and within a few minutes he was able to speak again. He also states that he has been having left-sided weakness in both his upper and lower extremity. He states that he was able to eat yogurt prior to coming to the hospital today. He denies any recent chest pain or shortness of breath. Patient states that there was thought in the past he may have restrictive cardiomyopathy so he does occasionally have chest pain and shortness of breath but not recent. He does have occasional nausea and vomiting which is likely due to his Ozempic use however has not had any episodes recently. He denies any edema in his legs. He states that the symptoms have not happened to him before. While in the emergency department he did undergo a head CT that was negative. Telestroke provider was also consulted who had recommended an MRI/MRA along with aspirin and Plavix. Patient has contrast allergy to iodine. Allergies Allergy/AdvReac Type Severity Reaction Status Date / Time adhesive tape Allergy Mild Redness of Verified 07/21/24 16:40 Skin Iodinated Contrast Media AdvReac Intermediate Gastrointestinal Verified 07/21/24 16:40 Upset iodine AdvReac Unknown "iodine Verified 07/21/24 16:40 solution caused unknown" Home Medications Medication Instructions Recorded Confirmed Type empagliflozin 10 mg tablet 10 mg PO QAM #30 tabs 01/22/22 07/21/24 Rx (Jardiance) Oxygen Home #1 ea 05/31/22 06/19/24 Rx flash glucose scanning reader #1 ea 06/02/22 06/19/24 Rx (FreeStyle Shlomo 2 [place]) pen needle, diabetic 31 gauge x #200 ea 06/13/22 06/19/24 Rx 5/16" (BD Ultra-Fine Short Pen Needle) Shower Chair #1 ea 02/15/23 06/19/24 Rx diclofenac sodium 1 % topical gel 4 g topical QID PRN Pain 01/20/24 07/21/24 History (Voltaren Arthritis Pain) ondansetron HCl 4 mg tablet 4 mg PO Q6H PRN NAUSEA/VOMITING 01/24/24 07/21/24 Rx #10 tabs famotidine 40 mg tablet 40 mg PO PM #90 tabs 03/20/24 07/21/24 Rx flash glucose sensor (FreeStyle #2 KITS 03/25/24 06/19/24 Rx Shlomo 2 Sensor kit) semaglutide 2 mg/dose (8 mg/3 mL) 2 mg (0.75 mL) subcut WK #3 mL 04/10/24 07/21/24 Rx subcutaneous pen injector (Ozempic) aspirin 81 mg tablet,delayed 81 mg PO QAM 04/16/24 07/21/24 History release ([place] Low Dose Aspirin) sertraline 100 mg tablet 150 mg (1.5 x 100 mg) PO DAILY 90 06/10/24 07/21/24 Rx days #135 tabs atorvastatin 40 mg tablet 40 mg PO UD #90 tabs 07/10/24 07/21/24 Rx torsemide 100 mg tablet 50 mg PO QAM 07/15/24 07/21/24 History omeprazole 20 mg capsule,delayed 20 mg PO DAILY 07/21/24 07/21/24 History release Past Med/Surg History Problem List (Updated 07/21/24 @ 15:32 by Devonte Hicks MD) Stroke-like symptoms (Acute) History of incision and drainage (06/04/24) Left Shoulder Abscess Incision and Drainage(Left) - Parminder Trotter DO Type 2 diabetes mellitus Anxiety and depression Atherogenic dyslipidemia Q fever Weakness (Acute) Sepsis (Acute) Hypertension Leukocytosis Shoulder pain, right Testicular nodule Restrictive cardiomyopathy GERD (gastroesophageal reflux disease) Complete rotator cuff tear of left shoulder (01/08/14) Obesity hypoventilation syndrome Chronic diastolic heart failure BPH (benign prostatic hyperplasia) Depression Obstructive sleep apnea Morbid obesity Constipation Trigeminal neuralgia of left side of face Lower back pain Neuropathy Lumbar radiculopathy Medical History (Updated 07/21/24 @ 15:32 by Devonte Hicks MD) Encounter for pre-operative examination Restrictive lung disease secondary to obesity CKD (chronic kidney disease) stage 3, GFR 30-59 ml/min History of septic arthritis History of pressure ulcer rt ankle stage 2 Right knee pain Hypoxia Degenerative disc disease Osteoarthritis BPH (benign prostatic hyperplasia) Hyperlipidemia Hypertension Chronic diastolic heart failure, NYHA class 3 Nonobstructive atherosclerosis of coronary artery H/O deep venous thrombosis 5+ yrs ago s/p fall Pulmonary emphysema GERD (gastroesophageal reflux disease) Sleep apnea BIPAP Restrictive cardiomyopathy Surgical History (Updated 06/19/24 @ 13:34 by Parminder Trotter DO) History of open reduction and internal fixation (ORIF) procedure LEFT WRIST (HARDWARE REMOVED) 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) History of esophagogastroduodenoscopy (EGD) History of herniorrhaphy multiple History of tooth extraction History of cataract surgery RT/LEFT Difficult intubation "Elective" glidescope noted on 08/2018 [facility] record Status post total hip replacement, left History of colonoscopy History of arthroscopy RIGHT SHOULDER Hx of transurethral resection of prostate History of total knee replacement RIGHT/LEFT History of cardiac cath MULTIPLE (NO STENTS PLACED) MOST RECENT= 2017 S/P cholecystectomy Family History Mother Stroke Alzheimer disease Father MVA (motor vehicle accident) Sister Breast cancer Daughter Brain tumor Denies family history of Ovarian cancer Prostate cancer Myocardial infarction Colorectal cancer Social History Smoking Status: Former smoker Tobacco Type: Cigarettes Age Started Using Tobacco: 18; Age Quit Using Tobacco: 30; Cigarettes Per Day: 1-2 ppd; Second Hand Exposure: No; Do You Dip or Chew Tobacco: No; Hx Alcohol Use: No Hx Substance Use: No Preferred Language: Citizen Of [place] Communication Ability: Effective Visual Impairment: No Limitations Hearing Ability: Normal Globe Mounter Required: No Beliefs That Will Affect Care: None marital status: Current Living Situation: Spouse Current Living Situation Comment: current occupational status: retired 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[employer], 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 Speech norm al. Results & Data Results & Data Vital Signs (Past 12 Hours) Vital Signs Temp Pulse Pulse Resp BP BP Pulse Ox 07/21/24 17:09 96 H 16 91 07/21/24 17:01 117/91 07/21/24 16:24 93 H 21 125/65 92 07/21/24 16:15 99 H 16 125/65 92 07/21/24 16:07 90 20 111/76 94 07/21/24 16:00 111/76 07/21/24 16:00 96 H 16 111/76 07/21/24 15:45 105 H 18 07/21/24 15:30 100 H 07/21/24 15:27 87 22 95 07/21/24 15:07 36.3 C L 93 H 18 130/80 94 O2 Del Method 07/21/24 17:09 07/21/24 17:01 07/21/24 16:24 07/21/24 16:15 07/21/24 16:07 Room Air 07/21/24 16:00 07/21/24 16:00 07/21/24 15:45 07/21/24 15:30 07/21/24 15:27 07/21/24 15:07 Room Air Laboratory Results 07/21/24 15:32 07/21/24 15:32 Diagnostic Findings Chest X-Ray 07/21/24 15:18 SINGLE VIEW CHEST CLINICAL HISTORY: Neurologic deficit. Strokelike symptoms. FINDINGS: 2 AP, portable, upright chest radiographs are compared to study dated 06/07/2024. Correlation is made with chest CT dated 05/27/2024. The heart is enlarged but noting atherosclerotic calcification of the thoracic aorta. The pulmonary vasculature is noncongested. Chronic interstitial thickening is similar to previous. There is mild bibasilar scarring/atelectasis. The lungs and pleural spaces are otherwise clear. No pneumothorax is seen. The skeletal structures are osteopenic. The bony thorax is grossly intact. IMPRESSION: Cardiomegaly with no active disease in the chest. ACT 112: Negative or not required by law. Electronically signed by: Don Toledo M.D. 07/21/2024 4:[address] 07/21/24 15:18 CT SCAN OF THE BRAIN WITHOUT IV CONTRAST CLINICAL HISTORY: Neurological deficit. Stroke like symptoms. COMPARISON STUDY: CT of the brain dated 05/27/2024. TECHNIQUE: Unenhanced axial CT scan of the brain is performed from the vertex to the skull base. A dose lowering technique was utilized adhering to the principles of ALARA. The patient was scanned twice due to motion artifact. CT DOSE: 2199.31 mGy.cm FINDINGS: Brain parenchyma: There is age-related involutional change noting moderate subcortical and periventricular microangiopathic disease. There is no hemorrhage, mass effect, or evidence of acute territorial ischemia by CT criteria. [place]-white matter differentiation is preserved. No extra-axial fluid collection is seen. Ventricles, sulci, cisterns: Prominent secondary to involutional change. Intracranial vasculature: There is atherosclerotic calcification of the cavernous carotid and vertebral arteries. Calvarium: Unremarkable. Sinuses and mastoids: The visualized paranasal sinuses are clear. The mastoid air cells are well pneumatized. Orbits: The bony orbits are grossly intact. There are bilateral ocular lens implants. IMPRESSION: There is no hemorrhage, mass effect, or evidence of acute territorial ischemia by CT criteria. ACT 112: Negative or not required by law. Electronically signed by: Don Toledo M.D. 07/21/2024 4:01 PM Supervising Physician Co-Signing Physician Notes I personally saw and examined the patient. I independently reviewed the labs, EKG, imaging, problem list, medication list, past medical history and family history. I verified all velazquez points and agree with Francia Lamas PA-C with the following exceptions and/or additions: 79 year old male presents with multiple days of head pressure, left arm and leg tingling/numbness and left leg weakness O/E HS RRR, no murmurs, Chest CTAB, Abdo SNT, generalized non dermatomal distribution numbness in left arm and leg, mild left pronator drift, 4/5 LLE weakness on hip flexion, no foot drop or ankle weakness, no facial droop, CN 2-> 12 intact A/P Stroke-like symptoms - at this time after brain MRI negative I do not believe his symptoms are due to stroke. Will reduce his antiplatelets back to aspirin alone and reduce atorvastatin back to 40mg PO daily. Will get MRI cervical spine due to both upper and lower extremity symptoms. If negative the next most likely explanation would be complex migraine. PG Care Time/CCT Total # of Minutes Spent Total Time Spent with Patient: Total time spent is greater than 50% in coordination of care (as documented) at patient's floor/unit and/or counseling patient: Coding Level of Care Code 91226 INT INP/OBS CARE 3/75MIN Diagnoses Stroke-like symptoms R29.90 Type 2 diabetes mellitus E11.9
[2024-07-21] MEDS: ASPIRIN CHEW 324 MG PO STA (17:58)
[2024-07-21] MEDS: CLOPIDOGREL BISULFATE 300 MG TAB PO STA (17:58)
[2024-07-21] MEDS: LORazepam 1 MG TAB SL STA ×2 (18:10→18:51)
[2024-07-21] MEDS ORDERED: Nursing to Pharmacy Communication SCH (18:50)
[2024-07-21] MEDS ORDERED: ONDANSETRON 4 MG OD TAB PO PRN (19:31)
[2024-07-21] MEDS ORDERED: Patient's HEIGHT &/or WEIGHT Needed SCH (19:45)
--- NOTE | 2024-07-21 19:48 | Magnetic Resonance Report ---
MRI OF THE BRAIN WITHOUT IV CONTRAST CLINICAL HISTORY: Left-sided weakness. COMPARISON STUDY: CT of the brain dated 07/21/2024. TECHNIQUE: MRI of the brain was performed utilizing various T1 and T2-weighted sequences in the axial , sagittal, and coronal planes. IV contrast was not administered for this examination. FINDINGS: Brain parenchyma: There is age-related involutional change noting minimal microangiopathic disease. T here is no hemorrhage or mass effect. There is no restricted diffusion to suggest acute ischemia. Gra y-white matter differentiation is preserved. No extra-axial fluid collection is seen. The cerebellar tonsils are normal in configuration. Ventricles, sulci, and cisterns: Prominent secondary to involutional change. Pituitary and sella: Unremarkable. Intracranial vasculature: Normal flow voids are maintained at the skull base. Orbits: The bony orbits are grossly intact. Orbital contents are normal in appearance noting bilatera l ocular lens implants. Sinuses and mastoids: Clear. Calvarium: Unremarkable. Cervical cord: Partially visualized cervical spinal cord is normal in morphology and signal intensity . IMPRESSION: No acute intracranial abnormality. ACT 112: Negative or not required by law. Electronically signed by: Don Toledo M.D. 07/21/2024 7:45 PM
--- NOTE | 2024-07-21 19:50 | Magnetic Resonance Report ---
MR ANGIOGRAM OF THE BRAIN CLINICAL HISTORY: Left-sided weakness. Difficulty speaking. COMPARISON STUDY: CT angiogram of the brain dated 08/26/2021. MRI of the brain performed concurrently on 07/21/2024. TECHNIQUE: 3-D [id number] MR angiography of the intracranial circulation is performed. 3-D tumble views are created and assessed. IV contrast was not administered for this examination. The examinati on is degraded by motion artifact. FINDINGS: The internal carotid arteries are widely patent bilaterally, as are the central portions of the anterior and middle cerebral arteries. The vertebrobasilar system and central portions of the po sterior cerebral arteries are widely patent. The right vertebral artery is dominant. Evaluation of t he peripheral branches is significantly degraded by motion artifact. There is no aneurysm, high-grade stenosis, or focal vessel cutoff seen throughout the intracranial circulation. The brain parenchyma is normal as visualized. IMPRESSION: Unremarkable MR angiogram of the brain noting a significantly motion degraded examination . The peripheral vessels are not well assessed ACT 112: Negative or not required by law. Electronically signed by: Don Toledo M.D. 07/21/2024 7:48 PM
--- NOTE | 2024-07-21 20:02 | Ultrasound Report ---
ULTRASOUND OF THE CAROTID ARTERIES CLINICAL HISTORY: Stroke like symptoms. COMPARISON STUDY: CT angiogram of the neck dated 08/26/2021. TECHNIQUE: Real-time, grayscale, and color Doppler sonography of the carotid arteries is performed. I mages are reviewed in the transverse and longitudinal planes. FINDINGS: The carotid arteries are patent bilaterally and demonstrate antegrade flow. There is mild echogenic a therosclerotic plaque seen in the carotid bulbs. Normal doppler arterial waveforms are seen throughou t. Velocity measurements are listed below. Common carotid peak systolic velocity (cm/sec): RIGHT: 91 LEFT: 116 ICA proximal peak systolic velocity (cm/sec): RIGHT: 39 LEFT: 49 ICA mid peak systolic velocity (cm/sec): RIGHT: 41 LEFT: 55 ICA distal peak systolic velocity (cm/sec): RIGHT: 47 LEFT: 42 ICA/CC peak systolic ratio: RIGHT: 0.5 LEFT: 0.5 Antegrade flow was shown in the vertebral arteries. The external carotid arteries are patent. IMPRESSION: 1. There is no sonographic evidence of hemodynamically significant stenosis in the right or left carreon tid arterial system. 2. Antegrade flow is shown in the vertebral arteries. ACT 112: Negative or not required by law. Electronically signed by: Don Toledo M.D. 07/21/2024 8:00 PM
[2024-07-21] MEDS ORDERED: LORazepam 1 MG TAB SL PRN (20:27)
[2024-07-21] MEDS: POTASSIUM CHLORIDE / WTR 10 MEQ/100 ML PLCT IV ONE ×2 (20:58→23:03)
[2024-07-21] MEDS: POTASSIUM CHLORIDE CRTAB 20 MEQ TABCR PO STA (21:04)
[2024-07-21] MEDS: FAMOTIDINE 40 MG TABLET PO SCH (21:05)
[2024-07-21] MEDS: ENOXAPARIN INJ 40 MG/0.4 ML SYR SQ SCH (21:06)
[2024-07-21] MEDS: INSULIN ASPART PER UNIT CHARGE SC SCH (21:40)
[2024-07-21 22:29] LABS: C Reactive Protein 1.18 mg/dl (0-0.5)
[2024-07-21] MEDS: LORazepam 2 MG/1 ML VIAL IV PRN (23:36)
--- NOTE | 2024-07-22 02:56 | Magnetic Resonance Report ---
Exam(s): MRI C SPINE EXAM: MR Cervical Spine Without Intravenous Contrast CLINICAL HISTORY: Reason for exam: Left arm and leg tingling ?cervical cord compressi. TECHNIQUE: Magnetic resonance images of the cervical spine without intravenous contrast in multiple planes. COMPARISON: Prior CT scan of the cervical spine from May 27, 2024. FINDINGS: Study is limited secondary to motion artifact. Vertebrae: There are 7 cervical type vertebral bodies with a mild generalized. To the left and normal cervical lordosis. There is normal vertebral body height and alignment. The bone marrow signal is normal. No acute fracture. Spinal cord: The cord is normal size, shape and signal characteristics. The craniocervical junction is normal without evidence of Chiari malformation. Soft tissues: The cervical flow voids are intact. DISCS/SPINAL CANAL/NEURAL FORAMINA: C2-C3: The intervertebral disc is normal. C3-C4: Moderate disc degeneration with annular disc bulge asymmetric to the left flattening the ventral thecal sac. C4-C5: There is mild disc degeneration with annular disc bulge flattening the ventral thecal sac. C5-C6: There is mild disc degeneration with annular disc bulge flattening the ventral thecal sac. C6-C7: There is mild disc degeneration with annular disc bulge flattening the thecal sac. There is uncovertebral joint arthropathy with disc extending to the neural foramina causing a moderately severe left stenosis with impingement of the left C7 nerve root. C7-T1: The intervertebral disc is normal. IMPRESSION: Mild disc degeneration at C6-7 with annular disc bulge flattening the ventral thecal sac with uncovertebral joint arthropathy and disc extending to the neural foramina causing a moderately severe left stenosis with impingement left C7 nerve root. Electronically signed by: Virginie Cotto MD 07/22/24 02:56 AM
[2024-07-22 06:51] LABS: Basophils # (auto) 0.06 K/uL (0.00-0.20); Basophils % (auto) 0.6 %; Hematocrit (blood only) 49.3 % (42.0-52.0); Hemoglobin 15.4 g/dl (14.0-18.0); Immature Granulocytes # (auto) 0.03 K/uL (0.01-0.20); Immature Granulocytes % (auto) 0.3 %; Lymphocytes # (auto) 3.08 K/uL (1.20-3.40); Lymphocytes % (auto) 30.4 %; Mean Corpuscular Hemoglobin 26.1 pg (25.0-34.0); Mean Corpuscular Hgb Conc 31.2 g/dL (32.0-36.0); Mean Corpuscular Volume 83.6 fL (80.0-100.0); Mean Platelet Volume 10.5 fL (9.4-12.4); Monocytes # (auto) 1.25 K/uL (0.11-0.59); Monocytes % (auto) 12.4 %; Neutrophils % (auto) 52.3 %; Platelet Count 257 K/uL (130-400); White Blood Count 10.12 K/ul (4.8-10.8)
[2024-07-22 07:11] LABS: BUN Creatinine Ratio 14.5 (10-20); Calcium 10.5 mg/dl (8.6-10.3); Chol HDL Ratio 6.4 (0-5); Creatinine Clr Calc Pharmacy 67.9 ml/min; Potassium 3.3 mmol/L (3.5-5.1)
[2024-07-22 07:21] LABS: Estimated Average Glucose 126 mg/dl
[2024-07-22] MEDS: PANTOprazole 40 MG TAB PO SCH (08:14)
[2024-07-22] MEDS: SERTRALINE HCL 50 MG TABLET PO SCH (08:14)
[2024-07-22] MEDS: ATORVASTATIN 40 MG TAB PO SCH (08:14)
[2024-07-22] MEDS: ASPIRIN 81 MG ECTAB PO SCH (08:15)
[2024-07-22] MEDS ORDERED: ATORVASTATIN 40 MG TAB PO SCH (09:00)
--- NOTE | 2024-07-22 10:00 | XCELERA ---
[id number] \\[email or web address]\[id number]
--- NOTE | 2024-07-22 10:00 | Neurology Consultation ---
Date of Consultation July 22, 2024 Assessment & Plan (1) Stroke-like symptoms: (2) Cervical spinal stenosis: (3) Memory deficits: Plan The patient presented with "strokelike" symptoms July 21. In reviewing his history it seemed like he had short episodes (lasting minutes) of pressure and unusual symptoms in his head accompanied by some lightheadedness (near syncope) and word finding difficulties. He would go back to baseline. This occurred on and off for about 2 days. He never felt that he had weakness. In the emergency room they felt that he had left-sided weakness. With careful neurologic examination today I am not convinced he has any arm or leg weakness. He has no focal neurologic findings, meningeal signs, or encephalopathy. He does have some memory problems with both long and short-term issues. This has been going on for about a year. MRI of the brain showed no stroke. Carotid ultrasound and MR angiography showed no significant vascular issues in the head and neck. Echocardiogram was unremarkable. Overall, therefore, although this may have been brief TIAs, he certainly did not have a stroke (and they are not typical TIA) given the brevity). Nonspecific hemodynamic flow issues to the head could be responsible although he is not obvi ously orthostatic. Patient does have some cervical spinal stenosis at C7 to the left, but he does not have obvious radicular symptoms in the left arm. There is no evidence of upper motor neuron signs on exam The patient has some memory issues which have been progressive over the last year. An early dementia cannot be excluded. Recommendations: 1. Could switch him from 81 aspirin to 75 mg clopidogrel daily (I do not believe he needs dual antiplatelet therapy). 2. Given his cholesterol, he would be a high-dose statin candidate. 3. Increase activity as able. 4. Blood pressure is already controlled 5. I have no further neurologic testing or treatment recommendations to make at this time, however, he could be followed in neurology as an outpatient for his memory problems. Could try to get in with a neurology PA later this fall. Overall, I spent a total of 120 minutes with this case including review of records, review of MRI films, direct evaluation the patient, report generation, and discussion of the case with the patient and RN at bedside, and Dr. Riddle including differential diagnosis and treatment options. History of Present Illness Reason for Consultation: Patient is a 79-year-old, who has been asked to see at the request of Dr. Riddle, for neurologic consultation regarding strokelike symptoms Requesting Physician: Dr. Mcgowan Attending Physician: Deb Riddle MD History of Present Illness This patient has a history of hypertension, type 2 diabetes, dyslipidemia, and some anxiety and depression. He weighed 338 pounds a year ago and on 6 months of Ozempic he is down to 261 pounds. Back in his 20s he states that he was a "alcoholic". He was a heavy alcohol user (1 case of beer per week +2/5 of whiskey per week) until 1987 when he quit. Back in April 2022 he was seen in neurology for left trigeminal neuralgia, polyneuropathy, and lumbosacral radiculopathy. He, currently, actually does not recall coming to the office or having trigeminal neuralgia. Apparently his facial pain improved and he is no longer on carbamazepine. He has chronic low back pain although waxing and waning nature. He denies chronic neck pain and he denies incontinence of urine. He does have some nonspecific balance issues over time. Patient tells me that his memory has been getting progressively worse particularly over the last year. He is forgetful with names and what is been said. He is still driving fairly well and not getting lost. He has been taking atorvastatin 40 and 81 mg aspirin tablet daily. Sometime while he was working on 19 July he had the onset of some confusion and trying to write things down. He was having some word finding difficulties. He felt a pressure all over his head without pain. This lasted several minutes. He was lightheaded and had near syncope but there was no loss of consciousness. He denied vertigo On July 20, in the evening, he was getting out of a car into a store when he had the sudden onset of pressure all over his head and blurry vision bilaterally. He had trouble getting words out and the few words that did come out did not make any sense. This lasted a few minutes and then resolved. Again he felt like he might pass out but never did. He had a mild pressure in his head the rest of the evening. On July 21, he felt an unusual vibration in his head and had the lig htheadedness again. At no time in any of these days did he feel his arm or leg was weak. He arrived to emergency room on July 21 at 10/20/2006 with a temperature of 36.3, pulse 93 and regular, respiratory rate 18, blood pressure 130/80, and O2 saturation 94%. In the emergency room he was felt to have left-sided weakness 4/5 with the right being normal. He had no other focal deficits. CBC showed elevated white count with increased neutrophils and a hemoglobin and hematocrit of 16 at 50.1. CHEM profile showed a glucose of 122. Liver profile was unremarkable. CT scan of the head was unremarkable. Chest x-ray was unremarkable. Because of his GI upset with iodinated contrast media, CT angiography was avoided. He had MR angiography of the head which was unremarkable and a carotid u ltrasound which was unremarkable. MRI of the brain without contrast revealed no acute stroke. There was some mild generalized atrophy and old small vessel ischemic disease seen only. I reviewed these films. MRI of the cervical spine revealed multiple areas of bone and disc degeneration with some mild spinal stenosis around C6-7. There was a C7 nerve root impingement present. I reviewed these films also. This morning, the patient feels improved without any lightheadedness, dizziness, headache, pressure, weakness, or numbness. He feels his speech is back to normal. I spoke to his RN and physical therapist who felt that his left side was mildly weak. Echocardiogram revealed no significant issues (see report). Hemoglobin A1c was 6.0. Total cholesterol was 205 and triglycerides 209. Allergies Allergy/AdvReac Type Severity Reaction Status Date / Time adhesive tape Allergy Mild Redness of Verified 07/21/24 16:40 Skin Iodinated Contrast Media AdvReac Intermediate Gastrointestinal Verified 07/21/24 16:40 Upset iodine AdvReac Unknown "iodine Verified 07/21/24 16:40 solution caused unknown" Home Medications Medication Instructions Recorded Confirmed Type empagliflozin 10 mg tablet 10 mg PO QAM #30 tabs 01/22/22 07/21/24 Rx (Jardiance) Oxygen Home #1 ea 05/31/22 06/19/24 Rx flash glucose scanning reader #1 ea 06/02/22 06/19/24 Rx (FreeStyle Shlomo 2 [place]) pen needle, diabetic 31 gauge x #200 ea 06/13/22 06/19/24 Rx 5/16" (BD Ultra-Fine Short Pen Needle) Shower Chair #1 ea 02/15/23 06/19/24 Rx diclofenac sodium 1 % topical gel 4 g topical QID PRN Pain 01/20/24 07/21/24 History (Voltaren Arthritis Pain) ondansetron HCl 4 mg tablet 4 mg PO Q6H PRN NAUSEA/VOMITING 01/24/24 07/21/24 Rx #10 tabs famotidine 40 mg tablet 40 mg PO PM #90 tabs 03/20/24 07/21/24 Rx flash glucose sensor (FreeStyle #2 KITS 03/25/24 06/19/24 Rx Shlomo 2 Sensor kit) semaglutide 2 mg/dose (8 mg/3 mL) 2 mg (0.75 mL) subcut WK #3 mL 04/10/24 07/21/24 Rx subcutaneous pen injector (Stream5) aspirin 81 mg tablet,delayed 81 mg PO QAM 04/16/24 07/21/24 History release ([place] Low Dose Aspirin) sertraline 100 mg tablet 150 mg (1.5 x 100 mg) PO DAILY 90 06/10/24 07/21/24 Rx days #135 tabs atorvastatin 40 mg tablet 40 mg PO UD #90 tabs 07/10/24 07/21/24 Rx torsemide 100 mg tablet 50 mg PO QAM 07/15/24 07/21/24 History omeprazole 20 mg capsule,delayed 20 mg PO DAILY 07/21/24 07/21/24 History release Patient History Medical History (Updated 07/22/24 @ 10:20 by Prabhjot Kim MD) Encounter for pre-operative examination Restrictive lung disease secondary to obesity CKD (chronic kidney disease) stage 3, GFR 30-59 ml/min History of septic arthritis History of pressure ulcer rt ankle stage 2 Right knee pain Hypoxia Degenerative disc disease Osteoarthritis BPH (benign prostatic hyperplasia) Hyperlipidemia Hypertension Chronic diastolic heart failure, NYHA class 3 Nonobstructive atherosclerosis of coronary artery H/O deep venous thrombosis 5+ yrs ago s/p fall Pulmonary emphysema GERD (gastroesophageal reflux disease) Sleep apnea BIPAP Restrictive cardiomyopathy Surgical History History of open reduction and internal fixation (ORIF) procedure LEFT WRIST (HARDWARE REMOVED) 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) History of esophagogastroduodenoscopy (EGD) History of herniorrhaphy multiple History of tooth extraction History of cataract surgery RT/LEFT Difficult intubation "Elective" glidescope noted on 08/2018 [facility] record Status post total hip replacement, left History of colonoscopy History of arthroscopy RIGHT SHOULDER Hx of transurethral resection of prostate History of total knee replacement RIGHT/LEFT History of cardiac cath MULTIPLE (NO STENTS PLACED) MOST RECENT= 2018 S/P cholecystectomy Family History (Updated 07/22/24 @ 09:59 by Prabhjot Kim MD) Mother , age 92 of a stroke Stroke Alzheimer disease Father , age 65 of a tree falling on him Accident, Onset Age: 65 Was in his yard cutting trees and a tree trunk fell and killed him Sister Breast cancer Daughter Brain tumor Denies family history of Ovarian cancer Prostate cancer Myocardial infarction Colorectal cancer Social History (Updated 07/22/24 @ 10:03 by Prabhjot Kim MD) Smoking Status: Former smoker Tobacco Type: Cigarettes Age Started Using Tobacco: 18; Age Quit Using Tobacco: 30; Cigarettes Per Day: 1-2 ppd; Second Hand Exposure: No; Do You Dip or Chew Tobacco: No; Hx Alcohol Use: No (Former "alcoholic" stopped 1987 (1 case of beer and 2/5 of whiskey weekly)) Hx Substance Use: No Preferred Language: Yakut Communication Ability: Effective Visual Impairment: No Limitations Hearing Ability: Normal 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 Beliefs That Will Affect Care: None marital status: Current Living Situation: Spouse Current Living Situation Comment: current occupational status: retired 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[employer], 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, 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 How many Children do You have: 2 Feels Safe at Home: Yes Childhood Exposure to Second-Hand Smoke: No Diet: regular Diet Comment: regular Dental Care, Regularly: Yes Physical Activity Frequency: Does not Exercise Seatbelt Use: sometimes Sunscreen Use: No Assistive Devices: Oxygen - at Night Review of Systems Constitutional: + fatigue; no fever and no weakness Eyes: no diplopia, no eye pain and no worsening vision Ear, Nose, Mouth, Throat: no ear pain, no tinnitus, no hearing loss, no dizzi ness, no snoring, no hoarseness and no dysphagia Respiratory: no cough and no dyspnea Cardiovascular: no chest pain, no palpitations and no lightheadedness Gastrointestinal: no abdominal pain, no nausea and no vomiting Musculoskeletal: no back pain, no neck pain, no radicular pain, no joint pain and no myalgia Integumentary: no rash and no lesions Neurologic: + memory loss; no gait abnormality, no l ocalized weakness, no generalized weakness, no tingling, no numbness, no tremor(s), no abnormal movements, no headache(s), no abnormal speech and no confusion Psychiatric: no depression, no irritability, no anxiety, no difficulty concentrating, no confusion and no hallucinations Endocrine: no fatigue and no flushing Hematologic / Lymphatic: no easy bleeding and no easy bruising Allergy / Immunological: no urticaria and no problem reported Exam (Neuro) Physical Exam: The patient is left-handed. The patient is awake, alert, and attentive. Speech is normal without any aphasia or dysarthria. Mood is reasonable and affect is appropriate. He is slightly slow in general with speech and movement. He knew his name and the fact it was Monday, the year, and the president. He did not know the date or month. He was pleasant and cooperative. Pupils are 3 mm bilaterally and reactive to light. Extraocular eye muscles are intact without nystagmus. Visual acuity and visual eagle seem normal grossly to confrontation. There are no deficits to sensation in the face in all 3 distributions of the fifth cranial nerve bilaterally. Corneal reflexes are positive bilaterally. Facial strength and symmetry was normal bilaterally. Hearing seems intact grossly to voice and finger rub bilaterally. Palate moves well without asymmetry. There is normal sternocleidomastoid and trapezius strength bilaterally. Tongue is midline with good strength bilaterally. Neck has a full range of motion without discomfort. Cervical, thoracic, and lumbar spine are nontender to palpation. Gait is narrow based, somewhat cautious, however, with good arm swing, turns, and stance. With outstretched arms there is no drift (he did lower his arm on the left at the shoulder about 1 inch at times). There are no resting, postural, or action tremors. There is no ataxia with finger to nose testing. There is good facility in the hands. No other abnormal involuntary movements are noted. Motor strength is 5/5 diffusely in the arms bilaterally including deltoids, biceps, triceps, brachioradialis, wrist flexors and extensors, waste recycler, and intrinsic hand muscles. Motor strength is 5/5 diffusely in the legs bilaterally including hip flexors, quadriceps, hamstrings, gastrocnemius, tibialis anterior, tibialis posterior, and Peroneii muscles bilaterally. Toe extensors are normal and there is good bulk in the extensor digitorum brevis muscles bilaterally. I specifically checked each limb on 2 separate occasions before I left the room and each time I was convinced that there was no actual focal weakness in his arms and legs both proximally or distally. Once or twice there was some "giveaway" weakness but with encouragement he had good strength. The limbs have good tone without rigidity or spasticity. There is no atrophy no nate in the muscles. Muscle bulk is normal, there is no tenderness to palpation, no myotonia to percussion, and no fasciculations seen. Sensory examination is intact to touch and pin throughout all 4 limbs diffusely. Reflexes are 0/4 in the brachioradialis and Achilles tendons bilaterally. Biceps, triceps, and quadriceps tendons are 1/4. Toes are downgoing with plantar stimulation bilaterally. Peripheral pulses are present and of normal quality distally in all 4 limbs. There is no peripheral edema noted in the limbs. Results & Data Vital Signs (Past 12 Hours) Vital Signs Temp Pulse Pulse Resp BP Pulse Ox O2 Del Method 07/22/24 07:18 36.9 C 79 16 128/79 95 Room Air 07/22/24 06:59 84 07/22/24 05:35 77 07/22/24 02:27 36.7 C 79 18 126/76 94 Room Air 07/22/24 00:33 74 18 123/71 98 Room Air PG Care Time/CCT Total # of Minutes Spent Total Time Spent with Patient: Total time spent is greater than 50% in coordination of care (as documented) at patient's floor/unit and/or counseling patient: Coding Level of Care Code 70832 INT INP/OBS CARE 3/75MIN Diagnoses Stroke-like symptoms R29.90 Cervical spinal stenosis M48.02 Memory deficits R41.3 Time Spent (min) 120
[2024-07-22] MEDS: POTASSIUM CHLORIDE CRTAB 20 MEQ TABCR PO STA (14:27)
[2024-07-22] MEDS: CLOPIDOGREL BISULFATE 75 MG TAB PO SCH (14:27)
--- NOTE | 2024-07-22 14:39 | Hospitalist Progress Note ---
Date of Service July 22, 2024 Assessment & Plan (1) TIA (transient ischemic attack): Plan: This is a 79-year-old male with past medical history of type 2 diabetes, anxiety, depression, hypertension, GERD, BPH who presented to the ED on 07/21/2024 with intermittent difficulty speaking, head pressure, lightheadedness, and possible left-sided weakness Head CT negative. Carotid Doppler negative, MRI head negative Brain MRI negative for stroke Symptoms resolved quickly each time. Patient also had some component of pain down the left upper extremity. MRI cervical spine shows severe impingement on C7 root on the left side which could be contributing to radiculopathy Alternatively, could this be some sort of complex migraine? He does have mild hypercalcemia but would not likely cause this He also reports a significant weight loss of around 60 pounds over the last 6 months or so since being on Ozempic. He no longer has peripheral edema and has cut his torsemide in half-perhaps he is having orthostasis from lightheaded nests from excessive torsemide use? Hold torsemide ECHO with bubble study ordered-was nondiagnostic for bubble study but otherwise with borderline dilated RV with normal RV function, EF 55-60% hgb A1c acceptable at 6.0% Lipid panel with total cholesterol 205, LDL 131 PT/OT/speech consulted, appreciate recommendations for rehab placement Appreciate neurology consultation Could be TIA given multiple risk factors, although would be atypical- nonetheless, switch aspirin to Plavix. Increase atorvastatin to high intensity dosing of 80 mg, continue neurochecks (2) Hypercalcemia: Plan: Calcium persistently mildly elevated as high as 11.0 Check PTH, parathyroid related protein, vitamin D in the morning. Magnesium and phosphorus normal Could be causing headaches and constipation as well as mood issues No offending medications May actually worsen with holding torsemide (3) Cervical spinal stenosis: Plan: Seen on MRI cervical spine, could be contributing to left upper extremity pain and symptoms Now seems to be improved (4) Hypokalemia: Plan: Replace with oral potassium chloride Follow BMP (5) Memory deficits: Plan: Progressing over the last year as per neurology consult Follow-up with neurology as an outpatient RPR, Lyme, TSH all normal in the last 6 months, B12 normal 1 year ago (6) Type 2 diabetes mellitus: Plan: Patient on Jardiance and Ozempic outpatient for management. - hold while inpatient. Sliding scale Novolog Range 110 - 180mg/dl CF 25 Hemoglobin A1c 6.0%-well-controlled (7) Anxiety and depression: Plan: Continue home sertraline (8) Hypertension: Plan: Blood pressures are controlled Holding torsemide as he has no peripheral edema after significant weight loss (9) Chronic diastolic heart failure: Plan: Holding torsemide as above Follow I's and O's, daily weights (10) Obstructive sleep apnea: Plan: Uses chronic O2 (11) Constipation: Plan: Chronic issue Laxatives as needed (12) Leukocytosis: Plan: He reports being seen by hematology in the past for this. 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 Flow cytometry in 2022 with increased NK cells and mild dyssynchronous granulocytic maturation which is nonspecific but could indicate underlying malignancy versus autoimmune disorder or medication side effect or viral infection Recommend follow-up with hematology as an outpatient Blood cultures pending but no growth to date, CRP only minimally elevated-doubt infectious cause Plan Chronic conditions: GERD: PPI and Pepcid DVT prophylaxis: Lovenox Disposition: telemetry, continued stay, awaiting rehab placement Code status: full Admission and Anticipated Discharge Date Admission Date: July 21, 2024 Anticipated date of discharge: 07/23/24 Subjective Patient still complains of intermittent fuzzy feeling in his head and pressure behind his eyes. Yesterday reports having significant pain radiating down his entire left upper extremity to the fingertips which is now resolved. He does not feel weak in the left side of his body. Denies chest pains or shortness of breath. Telemetry with normal sinus rhythm and PACs with rates in the 80s to 90s I discussed his care with neurology Physical Exam Constitutional: WD/WN, vitals as above Respiratory: normal respiratory effort, lungs clear to auscultation Cardiovascular: RRR, no murmur, no edema Gastrointestinal (Abdomen): normal bowel sounds, soft, nontender, no hepatosplenomegaly Neurologic: PERRL, EOMI, accommodation nl, no face palsy, no dysarthria no focal motor deficits and not confused Psychiatric: A+Ox3, euthymic affect Results & Data Results & Data Vital Signs (Past 12 Hours) Vital Signs Temp Pulse Pulse Resp BP Pulse Ox O2 Del Method 07/22/24 11:48 36.9 C 93 H 16 143/82 H 93 Room Air 07/22/24 07:18 36.9 C 79 16 128/79 95 Room Air 07/22/24 06:59 84 07/22/24 05:35 77 Laboratory Results CBC, BMP, hemoglobin A1c, lipid panel reviewed PG Care Time/CCT Total # of Minutes Spent Total Time Spent with Patient: Total time spent is greater than 50% in coordination of care (as documented) at patient's floor/unit and/or counseling patient: Coding Level of Care Code 26558 SUB INP/OBS CARE 3/50MIN Diagnoses TIA (transient ischemic attack) G45.9 Hypercalcemia E83.52 Cervical spinal stenosis M48.02 Hypokalemia E87.6 Memory deficits R41.3 Type 2 diabetes mellitus E11.9 Anxiety and depression F41.9; F32.9 Hypertension I10 Chronic diastolic heart failure I50.32 Obstructive sleep apnea G47.33 Constipation K59.00 Leukocytosis D72.829
[2024-07-22 15:00] LABS: Phosphorus 2.8 mg/dl (2.5-4.9)
--- NOTE | 2024-07-22 15:21 | Electrocardiogram Report ---
Test Reason : Blood Pressure : */* mmHG Vent. Rate : 92 BPM Atrial Rate : 92 BPM P-R Int : 204 ms QRS Dur : 122 ms QT Int : 378 ms P-R-T Axes : 15 -27 1 degrees QTcB Int : 467 ms Normal sinus rhythm Right bundle branch block Abnormal ECG When compared with ECG of 07-Jun-2024 19:11, No significant change was found Confirmed by Tristan Israel ([id number]) on 07/22/2024 3:21:38 PM Referred By: REFERRED SELF Confirmed By: Tristan Israel
[2024-07-22 20:14] VITALS: RESP 18
[2024-07-23 06:25] LABS: Basophils # (auto) 0.08 K/uL (0.00-0.20); Basophils % (auto) 0.7 %; Eosinophils # (auto) 0.38 K/uL (0.00-0.50); Eosinophils % (auto) 3.4 %; Hematocrit (blood only) 47.5 % (42.0-52.0); Hemoglobin 14.7 g/dl (14.0-18.0); Immature Granulocytes # (auto) 0.05 K/uL (0.01-0.20); Immature Granulocytes % (auto) 0.4 %; Lymphocytes # (auto) 3.36 K/uL (1.20-3.40); Lymphocytes % (auto) 30.1 %; Mean Corpuscular Hgb Conc 30.9 g/dL (32.0-36.0); Mean Corpuscular Volume 84.1 fL (80.0-100.0); Mean Platelet Volume 10.5 fL (9.4-12.4); Monocytes # (auto) 1.34 K/uL (0.11-0.59); Neutrophils # (auto) 5.97 K/uL (1.40-6.50); Neutrophils % (auto) 53.4 %; Platelet Count 261 K/uL (130-400); RDW Coefficient of Variation 15.1 % (11.5-14.5); RDW Standard Deviation 45.5 fL (36.4-46.3); Red Blood Count 5.65 M/uL (4.70-6.10); White Blood Count 11.18 K/ul (4.8-10.8)
[2024-07-23 06:32] LABS: Calcium 10.3 mg/dl (8.6-10.3); Potassium 3.5 mmol/L (3.5-5.1)
[2024-07-23 06:38] LABS: BUN Creatinine Ratio 13.3 (10-20); Creatinine Clr Calc Pharmacy 66.5 ml/min
[2024-07-23] MEDS: ATORVASTATIN 40 MG TAB PO SCH (08:17)
[2024-07-23] MEDS: CHOLECALCIFEROL 25 MCG (1000 UNITS) TAB PO SCH (09:26)
[2024-07-23 15:16] VITALS: BP 129/78; TEMP 98.2; O2SAT 96
[2024-07-23 16:28] VITALS: PULSE 84
--- NOTE | 2024-07-23 16:48 | Discharge Summary ---
Discharge Summary Date of Service July 23, 2024 Principal Dx & Hospital Course #1 = Principal Diagnosis (1) TIA (transient ischemic attack): This is a 79-year-old male with past medical history of type 2 diabetes, anxiety, depression, hypertension, GERD, BPH who presented to the ED on 07/21/2024 with intermittent difficulty speaking, head pressure, lightheadedness, and possible left-sided weakness Head CT negative. Carotid Doppler negative, MRA head negative Brain MRI negative for stroke Symptoms resolved quickly each time. Patient also had some component of pain and some paresthesias down the left upper extremity. MRI cervical spine shows severe impingement on C7 root on the left side which could be contributing to radiculopathy Alternatively, could this be some sort of complex migraine? He does have mild hypercalcemia but would not likely cause this He also reports a significant weight loss of around 60 pounds over the last 6 months or so since being on Ozempic. He no longer has peripheral edema and has cut his torsemide in half-perhaps he is having orthostasis from lightheadedness from excessive torsemide use? Hold torsemide and use only as needed weight gain or leg swelling ECHO with bubble study ordered-was nondiagnostic for bubble study but otherwise with borderline dilated RV with normal RV function, EF 55-60% hgb A1c acceptable at 6.0% Lipid panel with total cholesterol 205, LDL 131 PT/OT/speech consulted, appreciate recommendations for rehab placement, however his insurance denied rehab and patient decided to go home and have outpatient physical therapy and Occupational Therapy Appreciate neurology consultation Could be TIA given multiple risk factors, although would be atypical- nonetheless, switched aspirin to Plavix. Increase atorvastatin to high intensity dosing of 80 mg Continue good control of diabetes and blood pressure. Continue Jardiance He had no further symptoms of the head pressure or lightheadedness on the day of discharge and he felt improved. He will also be arranged to have a 14-day cardiac Holter monitor after discharge to look for occult atrial fibrillation or flutter (2) Hypercalcemia: Calcium persistently mildly elevated as high as 11.0 on mission and down to 10.3 on the day of discharge. Ionized calcium was within normal limits. PTH was elevated at 92, vitamin D level was low at 19, Magnesium and phosphorus normal. Parathyroid related protein was pending at the time of discharge Could be causing headaches and constipation as well as mood issues No offending medications May actually worsen with holding torsemide but will need to be monitored with outpatient lab work by PCP and/or endocrinology Will make referral to endocrinology for likely primary hyperparathyroidism-I have asked our [facility] nurse navigator to make this referral For vitamin D deficiency, okay to start cholecalciferol 1000 units once daily (3) Cervical spinal stenosis: Seen on MRI cervical spine, could be contributing to left upper extremity pain and symptoms Now seems to be improved (4) Hypokalemia: Replaced with oral potassium chloride (5) Memory deficits: Progressing over the last year as per neurology consult Follow-up with neurology as an outpatient RPR, Lyme, TSH all normal in the last 6 months, B12 normal 1 year ago (6) Type 2 diabetes mellitus: Patient on Jardiance and Ozempic outpatient for management. Can resume on discharge Hemoglobin A1c 6.0%-well-controlled (7) Anxiety and depression: Continue home sertraline (8) Hypertension: Blood pressures are controlled Held torsemide as he has no peripheral edema after significant weight loss-he can take this as needed for weight gain or peripheral edema (9) Chronic diastolic heart failure: Switch torsemide to as needed use as above Follow daily weights and low-sodium diet as an outpatient (10) Obstructive sleep apnea: Uses chronic O2 (11) Constipation: Chronic issue Laxatives as needed (12) Leukocytosis: He reports being seen by hematology in the past for this. 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 Flow cytometry in 2022 with increased NK cells and mild dyssynchronous granulocytic maturation which is nonspecific but could indicate underlying malignancy versus autoimmune disorder or medication side effect or viral infection Recommend follow-up with hematology as an outpatient-he and his will schedule an appointment Blood cultures pending but no growth to date, CRP only minimally elevated-doubt infectious cause Plan Chronic conditions: GERD: PPI change from omeprazole to Protonix as omeprazole interacts with Plavix, continue Pepcid DVT prophylaxis: Lovenox Disposition: Insurance denied acute rehab despite peer to peer-also denied. Patient chose not to wait for SNF and will go home and have outpatient PT Code status: full Notes For Next Care Provider Needs 14-day cardiac event monitor-being arranged by nurse navigator Needs follow-up with hematology for leukocytosis-being arranged by nurse navigator Needs follow-up with neurology within 1 month for cognitive deficits and TIA Medication Changes From Visit Added Plavix 75 mg daily and discontinued aspirin Switched omeprazole to pantoprazole due to interaction with Plavix Increase atorvastatin to 80 mg daily Added vitamin D 1000 units once daily Made torsemide as needed rather than scheduled daily Admission HPI Per Admitting Provider This is a 79-year-old male with past medical history of type 2 diabetes, anxiety, depression, hypertension, GERD, BPH who presented to the ED on 07/21/2024 for strokelike symptoms. The patient was seen and examined at bedside. He was resting comfortably in bed at time of encounter. Patient states that over the last 48 hours or so he has been having symptoms consistent with a head pressure or fullness. He states that yesterday he was at the store and was unable to speak. He states that this did not take long to resolve and within a few minutes he was able to speak again. He also states that he has been having left-sided weakness in both his upper and lower extremity. He states that he was able to eat yogurt prior to coming to the hospital today. He denies any recent chest pain or shortness of breath. Patient states that there was thought in the past he may have restrictive cardiomyopathy so he does occasionally have chest pain and shortness of breath but not recent. He does have occasional nausea and vomiting which is likely due to his Ozempic use however has not had any episodes recently. He denies any edema in his legs. He states that the symptoms have not happened to him before. While in the emergency department he did undergo a head CT that was negative. Telestroke provider was also consulted who had recommended an MRI/MRA along with aspirin and Plavix. Patient has contrast allergy to iodine. Discharge Exam Constitutional WD/WN, vitals as above Respiratory normal respiratory effort, lungs clear to auscultation Cardiovascular RRR, no murmur, no edema Gastrointestinal (Abdomen) normal bowel sounds, soft, nontender, no hepatosplenomegaly Neurologic no focal motor deficits and not confused Psychiatric A+Ox3, euthymic affect Discharge Plan Discharge Items Patient Disposition: Home - Self-Care Reason For Visit: STROKE LIKE SYMPTOMS Discharge Diagnosis: TIA Cervical spine stenosis Hypercalcemia Leukocytosis Activity: As commented below Lifting: Gradually increase as tolerated Bathing: No limitations Exercise/Sports: Gradually increase as tolerated Exercise Comment: With outpatient PT/OT Weightbearing: Full weightbearing Non-emergency contact: Primary Care Provider and Neurologist Call non-emergency contact if: you have any medication questions and your symptoms worsen Follow-up/Referrals: Prabhjot Kim MD [Physician] - (Please follow-up within 1 month for your TIA and memory issues.) Melissa Frazier MD [Primary Care Provider] - (Please follow-up within 1 to 2 weeks) Diet: Carb Consistent or DM2 and Heart Healthy Addtl Attending Provider Instructions: You have admitted with some left-sided weakness, difficulty speaking, and pressure in your head or lightheadedness. You may have had a transient ischemic attack (TIA). Your aspirin was stopped and you were started on Plavix instead. Your cholesterol medication was increased to 80 mg daily. This is all in an effort to keep future TIAs or strokes from happening. Please continue to control your diabetes as you are doing and follow-up with your primary care doctor. You will have a heart monitor sent to your house to wear for 2 weeks to see if you have any irregular heart rhythms that can lead to strokes or TIAs. Because your omeprazole can interact with the new blood thinner called Plavix, your omeprazole will be stopped and replaced with Protonix. For your memory issues, please follow-up with the neurologist within 1 month. You are also found to have mildly elevated calcium levels and an elevated parathyroid hormone level. You will be referred to the unit receptionist at [facility]. You should be contacted with your appointment date and time. Your vitamin D level was mildly low and you were started on a vitamin D supplement. This can be bought [id number]. Because of your elevated white blood cell count, you should follow-up with the aquatic scientist that you saw in the past. They should also be reaching out to you with an appointment date and time. Risk Factors for Stroke: You can reduce your chances of stroke by working with your medical provider to adopt a healthy lifestyle. Some specific ways to lower your chance of stroke are: * If you are a smoker, now is the time to stop smoking cigarettes * If you are diabetic, improve the control of your blood sugars * Avoid excessive amounts of alcohol * Control high blood pressure * Lose weight if you are overweight * Be sure to lead an active lifestyle * Eat a healthy diet low in salt, cholesterol and fat You should know about other risk factors for stroke that you are unable to control. These include: * Age 55 years or older * Male gender * Certain racial groups: , or / * Family History of Stroke, Mini stroke or Heart Attack * Sickle Cell Disease Follow Up: It is important for you to keep your follow up appointments with your medical provider. Who to Call and When: Medical Emergencies: Call 911 immediately if you experience any of the following warning signs and symptoms of Stroke: * Sudden numbness or weakness of the face, arm or leg, especially on one side of the body * Sudden confusion, trouble speaking or understanding * Sudden trouble seeing in one or both eyes * Sudden trouble walking, dizziness, loss of balance or coordination * Sudden severe headache with no cause Do not delay calling 911 if you experience any warning signs or symptoms of a stroke. Delay in seeking medical attention may affect what treatments can be given to you. . Pending Studies at Discharge: Yes (Parathyroid related protein) Stand-Alone Forms: My [employer], Smoking Cessation Medications and DC Order Prescriptions: New clopidogrel 75 mg Tablet 75 mg PO QAM Qty: 30 0RF atorvastatin 80 mg tablet 80 mg PO DAILY Qty: 30 0RF cholecalciferol (vitamin D3) 25 mcg (1,000 unit) Capsule 25 mcg PO QAM Qty: 30 0RF Rx Instructions: Cgnl-[id number] pantoprazole 40 mg Tablet,Delayed Release (Dr/Ec) 40 mg PO DAILY Qty: 30 0RF Continued (DME) FreeStyle Shlomo 2 [place] Misc See Rx Instructions .Route Qty: 1 0RF Rx Instructions: As directed to check blood sugar (scan at least every 8 hours) (DME) pen needle, diabetic [BD Ultra-Fine Short Pen Needle] 31 gauge x 5/16" needle See Rx Instructions .Route Qty: 200 3RF Rx Instructions: Use with insulin pen twice daily Dx:E11.9 famotidine 40 mg tablet 40 mg PO PM Qty: 90 1RF (DME) FreeStyle Shlomo 2 Sensor Kit See Rx Instructions .ROUTE .COMPLEX Qty: 2 5RF Dose Instruction: DIRECTED TO CHECK BLOOD SUGARS CONTINUOUSLY (REPLACE EVERY 14 DAYS) Rx Instructions: DIRECTED TO CHECK BLOOD SUGARS CONTINUOUSLY (REPLACE EVERY 14 DAYS) Ozempic 2 mg/dose (8 mg/3 mL) pen injector 2 mg subcut WK Qty: 3 5RF Rx Instructions: Monday (DME) Oxygen Home Liters Per Minute See Rx Instructions .Route Qty: 1 0RF Rx Instructions: As directed (DME) Shower Chair Misc See Rx Instructions .Route Qty: 1 0RF Rx Instructions: Shower transfer bench-G62.9 sertraline 100 mg tablet 150 mg PO DAILY 90 Days Qty: 135 1RF Jardiance 10 mg tablet 10 mg PO QAM Qty: 30 0RF diclofenac sodium [Voltaren Arthritis Pain] 1 % gel 4 g topical QID PRN (Reason: Pain) ondansetron HCl 4 mg tablet 4 mg PO Q6H PRN (Reason: NAUSEA/VOMITING) Qty: 10 0RF Changed torsemide 100 mg tablet 50 mg PO QAM PRN (Reason: Weight gain or leg swelling) Qty: 15 0RF Discontinued atorvastatin 40 mg tablet 40 mg PO UD Qty: 90 0RF Rx Instructions: 40 mg po qam per pt he isnt sure of this medication 05/29/25 aspirin [[place] Low Dose Aspirin] 81 mg tablet,delayed release (DR/EC) 81 mg PO QAM omeprazole 20 mg capsule,delayed release(DR/EC) 20 mg PO DAILY Discharge Orders: Discharge Order (Routine); Ordered 07/23/24 Ordered By: Deb oLmbardo/Other Patient Handouts: Managing Type 2 Diabetes Admission Data Admit Date/Time: 07/21/24 17:20 Attending Provider: Deb Riddle Admit Provider: Damian Martins Primary Care Provider: Melissa Frazier Other Providers: Prabhjot Kim; [facility] Stay Data Consultations 07/21/24 22:37 Consult Neurology Routine Diagnostic Imagining Performed 07/21/24 15:18 CT head/brain wo con Stat 07/21/24 17:06 MR angio head wo con Urgent 07/21/24 17:07 US carotid doppler BI Routine 07/21/24 17:24 MRI Brain [MR brain wo con] Stat 07/22/24 00:00 MR cervical spine wo con Stat Echocardiogram Pending Results Patient Have Any Pending Studies at Discharge: Yes (Parathyroid related protein) Discharge Instructions Given to Patient (Per Discharging Provider) You have admitted with some left-sided weakness, difficulty speaking, and pressure in your head or lightheadedness. You may have had a transient ischemic attack (TIA). Your aspirin was stopped and you were started on Plavix instead. Your cholesterol medication was increased to 80 mg daily. This is all in an effort to keep future TIAs or strokes from happening. Please continue to control your diabetes as you are doing and follow-up with your primary care doctor. You will have a heart monitor sent to your house to wear for 2 weeks to see if you have any irregular heart rhythms that can lead to strokes or TIAs. Because your omeprazole can interact with the new blood thinner called Plavix, your omeprazole will be stopped and replaced with Protonix. For your memory issues, please follow-up with the neurologist within 1 month. You are also found to have mildly elevated calcium levels and an elevated parathyroid hormone level. You will be referred to the unit receptionist at [facility]. You should be contacted with your appointment date and time. Your vitamin D level was mildly low and you were started on a vitamin D supplement. This can be bought [id number]. Because of your elevated white blood cell count, you should follow-up with the aquatic scientist that you saw in the past. They should also be reaching out to you with an appointment date and time. Risk Factors for Stroke: You can reduce your chances of stroke by working with your medical provider to adopt a healthy lifestyle. Some specific ways to lower your chance of stroke are: * If you are a smoker, now is the time to stop smoking cigarettes * If you are diabetic, improve the control of your blood sugars * Avoid excessive amounts of alcohol * Control high blood pressure * Lose weight if you are overweight * Be sure to lead an active lifestyle * Eat a healthy diet low in salt, cholesterol and fat You should know about other risk factors for stroke that you are unable to control. These include: * Age 55 years or older * Male gender * Certain racial groups: , or / * Family History of Stroke, Mini stroke or Heart Attack * Sickle Cell Disease Follow Up: It is important for you to keep your follow up appointments with your medical provider. Who to Call and When: Medical Emergencies: Call 911 immediately if you experience any of the following warning signs and symptoms of Stroke: * Sudden numbness or weakness of the face, arm or leg, especially on one side of the body * Sudden confusion, trouble speaking or understanding * Sudden trouble seeing in one or both eyes * Sudden trouble walking, dizziness, loss of balance or coordination * Sudden severe headache with no cause Do not delay calling 911 if you experience any warning signs or symptoms of a stroke. Delay in seeking medical attention may affect what treatments can be given to you. . Total Time Total Time Spent Total Time Spent (In Minutes): 35 minutes Total Time Includes: Examination of the Patient, Discharge Planning and Medication Reconciliation Coding Level of Care Code 43485 INP/OBS DISCH >30 MIN Diagnoses TIA (transient ischemic attack) G45.9 Hypercalcemia E83.52 Cervical spinal stenosis M48.02 Hypokalemia E87.6 Memory deficits R41.3 Type 2 diabetes mellitus E11.9 Anxiety and depression F41.9; F32.9 Hypertension I10 Chronic diastolic heart failure I50.32 Obstructive sleep apnea G47.33 Constipation K59.00 Leukocytosis D72.829
[2024-07-23] MEDS: PNEUMOCOCCAL VACCINE (PCV20) 20-VAL CONJ-DIP CRM/PF 0.5 ML SYR IM ONE (17:09)
[2024-07-23] MEDS: INFLUENZA VACC TS2024-25(65y+)/PF (IIV3) 0.5mL Syr IM ONE (17:12)
== END 2024-07-23 18:48 | disposition home or self-care (01) | DRG 69 ==
LOC: ED 15:04 → SUATTDRO 17:20 → EDINP 17:20 → 2N 19:31

== ENCOUNTER 2024-08-03 17:08 | Inpatient (IN) ==
[2024-08-03] MEDS: diphenhydrAMINE 50 MG/ML VIAL IV ONE (17:50)
[2024-08-03] MEDS: methylPREDNISolone 125 MG/2 ML VIAL IV ONE (17:50)
[2024-08-03 17:52] LABS: iSTAT Creatinine 1.2 mg/dl (0.6-1.3); iSTAT Hemoglobin 16.7 g/dl (14.0-18.0); iSTAT Ionized Calcium 1.39 mmol/l (1.12-1.32); iSTAT Potassium 4.1 mmol/L (3.3-5.0)
[2024-08-03 17:52] LABS: Basophils # (auto) 0.06 K/uL (0.00-0.20); Basophils % (auto) 0.5 %; Eosinophils # (auto) 0.18 K/uL (0.00-0.50); Eosinophils % (auto) 1.6 %; Hemoglobin 15.1 g/dl (14.0-18.0); Immature Granulocytes # (auto) 0.04 K/uL (0.01-0.20); Immature Granulocytes % (auto) 0.4 %; Lymphocytes # (auto) 2.43 K/uL (1.20-3.40); Lymphocytes % (auto) 21.8 %; Mean Corpuscular Hemoglobin 25.7 pg (25.0-34.0); Mean Corpuscular Hgb Conc 30.2 g/dL (32.0-36.0); Mean Platelet Volume 10.2 fL (9.4-12.4); Monocytes # (auto) 0.89 K/uL (0.11-0.59); Neutrophils # (auto) 7.57 K/uL (1.40-6.50); Neutrophils % (auto) 67.7 %; Platelet Count 274 K/uL (130-400); RDW Coefficient of Variation 15.1 % (11.5-14.5); RDW Standard Deviation 47.1 fL (36.4-46.3); Red Blood Count 5.88 M/uL (4.70-6.10); White Blood Count 11.17 K/ul (4.8-10.8)
--- NOTE | 2024-08-03 17:58 | XRay Report ---
XR chest 1V portable CLINICAL HISTORY: neuro deficit, acute stroke suspected TECHNIQUE: Single frontal radiograph of the chest was obtained. Comparison: Comparison is made to chest radiograph 07/21/2024 FINDINGS: Exam is limited by underpenetration. Cardiomegaly is noted. The aortic arch is calcified. The lungs a re clear. No evidence of pleural effusion or pneumothorax. IMPRESSION: No acute chest disease. ACT 112: Negative or not required by law. Electronically signed by: Colt Paula M.D. 08/03/2024 5:57 PM
[2024-08-03] MEDS: OPTIRAY 320 125ml IV ONE (18:00)
[2024-08-03 18:07] LABS: Alanine Aminotransferase 14 U/L (7-52); Albumin Globulin Ratio 1.2 (0.9-2); Albumin Level 4.2 gm/dl (3.4-5.0); Alkaline Phosphatase 82 U/L (34-104); Anion Gap 5 (3-11); Aspartate Aminotransferase 15 U/L (13-39); BUN Creatinine Ratio 9.1 (10-20); Bilirubin,Total 0.5 mg/dl (0.2-1.0); Blood Urea Nitrogen 11 mg/dl (6-23); Calcium 10.8 mg/dl (8.6-10.3); Carbon Dioxide 29 mmol/L (21-32); Chloride 104 mmol/L (98-107); Globulin 3.4 gm/dl (2.5-4.0); Glucose 108 mg/dl (70-99(Fasting)); Potassium 4.1 mmol/L (3.5-5.1); Sodium 138 mmol/L (136-145); Total Protein 7.6 gm/dl (6.0-8.3)
[2024-08-03 18:13] LABS: Troponin I High Sensitivity 8.4 pg/ml (0-20)
[2024-08-03 18:16] LABS: Partial Thromboplastin Time 26 Seconds (21-31); Prothrombin Time 10.7 Seconds (9.0-12.0)
--- NOTE | 2024-08-03 18:21 | Emergency Department Note ---
History of Present Illness General Chief complaint: TIA Symptoms Stated complaint: TIA SX Time Seen by Provider: 08/03/24 17:24 History of Present Illness Provider complaint: Paresthesias dysarthria 79-year-old male presents emergency department for paresthesias and dysarthria. Patient states he woke up this morning and was fine but then at 830 noticed he was having numbness around his mouth and felt like he was having difficulty speaking and difficulty finding his words. Patient states he was just admitted to the hospital for TIA. He reports no falls or traumas. No headache. No fever. No difficulty walking. Home Medications Medication Instructions Recorded Confirmed Type empagliflozin 10 mg tablet 10 mg PO QAM #30 tabs 01/22/22 08/03/24 Rx (Jardiance) Oxygen Home #1 ea 05/31/22 08/02/24 Rx flash glucose scanning reader #1 ea 06/02/22 08/02/24 Rx (FreeStyle Shlomo 2 Lisle) pen needle, diabetic 31 gauge x #200 ea 06/13/22 08/02/24 Rx 5/16" (BD Ultra-Fine Short Pen Needle) Shower Chair #1 ea 02/15/23 08/02/24 Rx diclofenac sodium 1 % topical gel 4 g topical QID PRN Pain 01/20/24 08/02/24 History (Voltaren Arthritis Pain) ondansetron HCl 4 mg tablet 4 mg PO Q6H PRN NAUSEA/VOMITING 01/24/24 08/03/24 Rx #10 tabs famotidine 40 mg tablet 40 mg PO PM #90 tabs 03/20/24 08/02/24 Rx flash glucose sensor (FreeStyle #2 KITS 03/25/24 08/02/24 Rx Shlomo 2 Sensor kit) semaglutide 2 mg/dose (8 mg/3 mL) 2 mg (0.75 mL) subcut WK #3 mL 04/10/24 08/03/24 Rx subcutaneous pen injector (Ozempic) atorvastatin 80 mg tablet 80 mg PO DAILY #30 tabs 07/23/24 08/03/24 Rx clopidogrel 75 mg tablet 75 mg PO QAM #30 tabs 07/23/24 08/03/24 Rx pantoprazole 40 mg tablet,delayed 40 mg PO DAILY #30 tabs 10/08/24 10/19/24 Rx release torsemide 100 mg tablet 50 mg (1/2 x 100 mg) PO QAM PRN 07/23/24 08/02/24 Rx Weight gain or leg swelling #15 tabs cholecalciferol (vitamin D3) 50 2,000 unit PO DAILY #90 caps 08/02/24 08/03/24 Rx mcg (2,000 unit) capsule sertraline 100 mg tablet 200 mg (2 x 100 mg) PO DAILY 90 08/02/24 08/03/24 Rx days #180 tabs Allergies Allergy/AdvReac Type Severity Reaction Status Date / Time adhesive tape Allergy Mild Redness of Verified 08/02/24 10:24 Skin Iodinated Contrast Media AdvReac Intermediate Gastrointestinal Verified 08/02/24 10:24 Upset iodine AdvReac Unknown "iodine Verified 08/02/24 10: solution caused unknown" Past Med/Surg History Problem List (Updated 08/03/24 @ 18:51 by Willie Caldreon MD) Hypokalemia (Acute) TIA (transient ischemic attack) (Acute) Hypercalcemia Memory deficits Cervical spinal stenosis Stroke-like symptoms (Acute) History of incision and drainage (06/04/24) Left Shoulder Abscess Incision and Drainage(Left) - Parminder Trotter, DO Type 2 diabetes mellitus Anxiety and depression Atherogenic dyslipidemia Q fever Weakness (Acute) Sepsis (Acute) Hypertension Leukocytosis Shoulder pain, right Testicular nodule Restrictive cardiomyopathy GERD (gastroesophageal reflux disease) Complete rotator cuff tear of left shoulder (01/08/14) Obesity hypoventilation syndrome Chronic diastolic heart failure BPH (benign prostatic hyperplasia) Depression Obstructive sleep apnea Morbid obesity Constipation Trigeminal neuralgia of left side of face Lower back pain Neuropathy Lumbar radiculopathy Medical History Encounter for pre-operative examination Restrictive lung disease secondary to obesity CKD (chronic kidney disease) stage 3, GFR 30-59 ml/min History of septic arthritis History of pressure ulcer rt ankle stage 2 Right knee pain Hypoxia Degenerative disc disease Osteoarthritis BPH (benign prostatic hyperplasia) Hyperlipidemia Hypertension Chronic diastolic heart failure, NYHA class 3 Nonobstructive atherosclerosis of coronary artery H/O deep venous thrombosis 5+ yrs ago s/p fall Pulmonary emphysema GERD (gastroesophageal reflux disease) Sleep apnea BIPAP Restrictive cardiomyopathy Surgical History History of open reduction and internal fixation (ORIF) procedure LEFT WRIST (HARDWARE REMOVED) 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) History of esophagogastroduodenoscopy (EGD) History of herniorrhaphy multiple History of tooth extraction History of cataract surgery RT/LEFT Difficult intubation "Elective" glidescope noted on 08/2018 [facility] record Status post total hip replacement, left History of colonoscopy History of arthroscopy RIGHT SHOULDER Hx of transurethral resection of prostate History of total knee replacement RIGHT/LEFT History of cardiac cath MULTIPLE (NO STENTS PLACED) MOST RECENT= 2018 S/P cholecystectomy Family History Mother , age 92 of a stroke Stroke Alzheimer disease Father , age 65 of a tree falling on him Accident, Onset Age: 65 Was in his yard cutting trees and a tree trunk fell and killed him Sister Breast cancer Daughter Brain tumor Denies family history of Ovarian cancer Prostate cancer Myocardial infarction Colorectal cancer Social History Smoking Status: Former smoker Tobacco Type: Cigarettes Age Started Using Tobacco: 18; Age Quit Using Tobacco: 30; packs per day: 1; Cigarettes Per Day: 1-2 ppd; Second Hand Exposure: No; Do You Dip or Chew Tobacco: No; Hx Alcohol Use: No (Former "alcoholic" stopped 1987 (1 case of beer and 2/5 of whiskey weekly)) Hx Substance Use: No Preferred Language: Ethiopian Communication Ability: Effective Visual Impairment: No Limitations Hearing Ability: Normal Unpaid Intern Required: No Beliefs That Will Affect Care: None marital status: Current Living Situation: Spouse Current Living Situation Comment: current occupational status: retired 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[employer], 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, 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 How many Children do You have: 2 Feels Safe at Home: Yes Childhood Exposure to Second-Hand Smoke: No Diet: regular Diet Comment: regular Dental Care, Regularly: Yes Physical Activity Frequency: Does not Exercise Seatbelt Use: sometimes Sunscreen Use: No Assistive Devices: Cane and Oxygen - at Night Physical Exam Vital Signs Vital Signs - 24 hr 08/03/24 17:12 08/03/24 17:29 08/03/24 18:25 Temperature 36.9 C Temperature Source Temporal Artery Scan Pulse Rate 82 82 Pulse Rate [Left Brachial] 95 H Pulse Rhythm [Left Brachial] Regular Pulse Strength [Left Brachial] Normal Respiratory Rate 16 18 Respiratory Effort / Characteristics Non-Labored Spontaneous Non-Labored Respiratory Depth Normal Normal Respiratory Pattern Regular Blood Pressure 153/81 H Blood Pressure [Left Arm] 169/91 H Blood Pressure Mean 105 Blood Pressure Mean [Left Arm] 117 Blood Pressure Position Sitting Blood Pressure Position [Left Arm] Sitting Pulse Oximetry 97 96 Oxygen Delivery Method Room Air Room Air Sepsis Recent Fever Within 48 Hours No Sepsis New/Unexplained Change in Mental Status N/A Sepsis Action Taken by Nursing No Action Required Physical Exam HENT: Exam performed. - Head: Normocephalic and atraumatic. - Right Ear: External ear normal. No mastoid erythema - Left Ear: External ear normal. No mastoid erythema - Mouth/Throat: The oropharynx is clear and moist. No trismus in the jaw. No dental abscesses or uvula swelling. No oropharyngeal exudate or tonsillar abscesses. EYES: Conjunctivae and EOM are normal. Pupils are equal, round, and reactive to light. Right eye exhibits no discharge. Left eye exhibits no discharge. No scleral icterus. NECK: Normal range of motion. Neck supple. No JVD present. CV: Normal rate, regular rhythm, normal heart sounds and intact distal pulses. There is no peripheral edema. Palpable radial pulses bue. PULM/CHEST: Effort normal and breath sounds normal. No respiratory distress. No stridor. He has no wheezes. He has no rales. ABD: The abdomen is soft. There is no tenderness. There is no rebound, no guarding. NEURO: He is alert and oriented to person, place, and time. He has normal strength. No cranial nerve deficit or sensory deficit. Coordinationnormal. GCS eye subscore is 4. GCS verbal subscore is 5. GCS motor subscore is 6. Cerebellar tests wnl. NIHSS 1 (10:1) Course Course 1724: The patient was evaluated in room C5. A complete history and physical exam was performed Cardiac monitoring: An order was placed for continuous cardiac monitoring. The monitor shows a rate of 90 with sinus rhythm interpreted by me No code stroke called as the patient is out of the window for TNKase. 1830: Vital signs stable. Labs and imaging are unremarkable. Patient will be admitted to medicine and [facility] service for TIA. Administered Medications Discontinued Medications Aspirin (Aspirin Chew 324 Mg) 324 mg PO NOW STA Stop: 08/03/24 18:36 Last Admin: 08/03/24 18:46 Dose: 324 mg Documented By: LINDSEY Diphenhydramine HCl (Diphenhydramine 50 Mg/Ml Vial) 50 mg IV ONE ONE Stop: 08/03/24 17:32 Last Admin: 08/03/24 17:50 Dose: 50 mg Documented By: LINDSEY Ioversol (Optiray 320 125ml) 119 ml IV ONCE ONE Stop: 08/03/24 18:00 Last Admin: 08/03/24 18:00 Dose: 119 ml Documented By: BRENT Methylprednisolone (Methylprednisolone 125 Mg/2 Ml Vial) 40 mg IV NOW ONE Stop: 08/03/24 17:32 Last Admin: 08/03/24 17:50 Dose: 40 mg Documented By: LINDSEY Medical Decision Making Laboratory Data Attestation: I reviewed the patient's lab results. 08/03/24 17:35 08/03/24 17:35 Lab Results 08/03/24 08/03/24 08/03/24 Range/Units 17:35 17:40 18:22 WBC 11.17 H (4.8-10.8) K/ul RBC 5.88 (4.70-6.10) M/uL Hgb 15.1 (14.0-18.0) g/dl POC Hgb 16.7 (14.0-18.0) g/dl Hct 50.0 (42.0-52.0) % POC Hct 49 (42-52) % MCV 85.0 (80.0-100.0) fL MCH 25.7 (25.0-34.0) pg MCHC 30.2 L (32.0-36.0) g/dL RDW Std Deviation 47.1 H (36.4-46.3) fL RDW Coeff of Kartik 15.1 H (11.5-14.5) % Plt Count 274 (130-400) K/uL MPV 10.2 (9.4-12.4) fL Immature Gran % (Auto) 0.4 % Neut % (Auto) 67.7 % Lymph % (Auto) 21.8 % [place] % (Auto) 8.0 % Eos % (Auto) 1.6 % Baso % (Auto) 0.5 % Neut # (Auto) 7.57 H (1.40-6.50) K/uL Lymph # (Auto) 2.43 (1.20-3.40) K/uL [place] # (Auto) 0.89 H (0.11-0.59) K/uL Eos # (Auto) 0.18 (0.00-0.50) K/uL Baso # (Auto) 0.06 (0.00-0.20) K/uL Immature Gran # (Auto) 0.04 (0.01-0.20) K/uL PT 10.7 (9.0-12.0) Seconds INR 1.0 (0.9-1.1) APTT 26 (21-31) Seconds PTT Ratio 1.0 POC Sodium 141 (135-144) mmol/L Sodium 138 (136-145) mmol/L POC Potassium 4.1 (3.3-5.0) mmol/L Potassium 4.1 (3.5-5.1) mmol/L POC Chloride 104 (101-112) mmol/L Chloride 104 (98-107) mmol/L Carbon Dioxide 29 (21-32) mmol/L POC Total CO2 27 (24-31) mmol/L Anion Gap 5 (3-11) POC Anion Gap 15.0 L (16-25) mmol/L POC BUN 10 (7-18) mg/dl BUN 11 (6-23) mg/dl Creatinine 1.21 (0.6-1.4) mg/dl POC Creatinine 1.2 (0.6-1.3) mg/dl Est Cr Clr Drug Dosing Not Reportable eGFR 61.67 BUN/Creatinine Ratio 9.1 L (10-20) Glucose 108 H (70-99(Fasting)) mg/dl POC Glucose 101 H (70-99) mg/dl POC Glucose (other) 109 H (70-99) mg/dl Calcium 10.8 H (8.6-10.3) mg/dl POC Ioniz Calcium Mima 1.39 H (1.12-1.32) mmol/l Magnesium 2.0 (1.7-2.4) mg/dl Total Bilirubin 0.5 (0.2-1.0) mg/dl AST 15 (13-39) U/L ALT 14 (7-52) U/L Alkaline Phosphatase 82 (34-104) U/L Troponin I High Sens 8.4 (0-20) pg/ml Total Protein 7.6 (6.0-8.3) gm/dl Albumin 4.2 (3.4-5.0) gm/dl Globulin 3.4 (2.5-4.0) gm/dl Albumin/Globulin Ratio 1.2 (0.9-2) Imaging Data Attestation: I personally reviewed and interpreted this imaging study as follows: My Impression: Chest x-ray negative. Airway clear. No pneumothorax. No consolidation. No cardiomegaly or cephalization.. No free air under the diaphragm. No fractures of the skeletal structures. Radiologist's Impression: Chest X-Ray 08/03/24 17:31 XR chest 1V portable CLINICAL HISTORY: neuro deficit, acute stroke suspected TECHNIQUE: Single frontal radiograph of the chest was obtained. Comparison: Comparison is made to chest radiograph 07/21/2024 FINDINGS: Exam is limited by underpenetration. Cardiomegaly is noted. The aortic arch is calcified. The lungs are clear. No evidence of pleural effusion or pneumothorax. IMPRESSION: No acute chest disease. ACT 112: Negative or not required by law. Electronically signed by: Colt Paula M.D. 08/03/2024 5:[address] 08/03/24 17:31 CT angio neck with con, CT head/brain wo con, CT angio head w con CLINICAL HISTORY: neuro deficit, acute stroke suspected TECHNIQUE: Contiguous axial CT images of the head were acquired from the base of the skull to the vertex without intravenous contrast administration. CT angiography of the head and neck was performed following intravenous administration of iodinated contrast. Coronal and sagittal MIPS were obtained from the axial data set and were submitted for review. Automated dose lowering techniques and/or adjustment according to patient size were utilized for this examination. All measurements were calculated based on NASCET criteria. CT DOSE: 1408.86 mGy.cm Comparison: None available at the time of this dictation. FINDINGS: CT head: Areas of decreased attenuation are present in the periventricular and subcortical white matter bilaterally consistent with small vessel ischemic disease. Generalized cerebral atrophy with commensurate enlargement of the ventricles, sulci, and cisterns is also present. There is no acute intracranial hemorrhage or evidence of acute territorial infarction. No shift of the midline structures, mass effect, or extra-axial abnormalities are shown. Atherosclerotic calcifications are present in the intracranial segments of the internal carotid arteries. Lungs and soft tissues are unremarkable. CTA Neck: A 3 vessel aortic arch is shown. There is no significant atherosclerotic plaque in the aortic arch or the origins of the innominate, left common carotid, and left subclavian arteries. The common carotid, external carotid, cervical segments of the internal carotid arteries, and the cervical segments of the vertebral arteries are patent without hemodynamically significant stenosis. The right vertebral artery is dominant. CTA Head: The anterior and posterior cerebral circulations are patent. No hemodynamically significant stenosis, aneurysm, dissection, or arteriovenous malformation is shown. IMPRESSION: 1. No acute intracranial hemorrhage, evidence of acute territorial infarction, or other acute intracranial disease process. 2. No occlusion, hemodynamically significant stenosis, or dissection in the major cervical arteries. 3. No occlusion, hemodynamically significant stenosis, aneurysm, dissection, or arteriovenous malformation in the major intracranial arteries. Assessment of stenosis of the internal carotid arteries is based on NASCET criteria. ACT 112: Negative or not required by law. Electronically signed by: Colt Paula M.D. 08/03/2024 6:26 PM Head CTA 08/03/24 17:31 CT angio neck with con, CT head/brain wo con, CT angio head w con CLINICAL HISTORY: neuro deficit, acute stroke suspected TECHNIQUE: Contiguous axial CT images of the head were acquired from the base of the skull to the vertex without intravenous contrast administration. CT angiography of the head and neck was performed following intravenous administration of iodinated contrast. Coronal and sagittal MIPS were obtained from the axial data set and were submitted for review. Automated dose lowering techniques and/or adjustment according to patient size were utilized for this examination. All measurements were calculated based on NASCET criteria. CT DOSE: 1408.86 mGy.cm Comparison: None available at the time of this dictation. FINDINGS: CT head: Areas of decreased attenuation are present in the periventricular and subcortical white matter bilaterally consistent with small vessel ischemic disease. Generalized cerebral atrophy with commensurate enlargement of the ventricles, sulci, and cisterns is also present. There is no acute intracranial hemorrhage or evidence of acute territorial infarction. No shift of the midline structures, mass effect, or extra-axial abnormalities are shown. Atherosclerotic calcifications are present in the intracranial segments of the internal carotid arteries. Lungs and soft tissues are unremarkable. CTA Neck: A 3 vessel aortic arch is shown. There is no significant atherosclerotic plaque in the aortic arch or the origins of the innominate, left common carotid, and left subclavian arteries. The common carotid, external carotid, cervical segments of the internal carotid arteries, and the cervical segments of the vertebral arteries are patent without hemodynamically significant stenosis. The right vertebral artery is dominant. CTA Head: The anterior and posterior cerebral circulations are patent. No hemodynamically significant stenosis, aneurysm, dissection, or arteriovenous malformation is shown. IMPRESSION: 1. No acute intracranial hemorrhage, evidence of acute territorial infarction, or other acute intracranial disease process. 2. No occlusion, hemodynamically significant stenosis, or dissection in the major cervical arteries. 3. No occlusion, hemodynamically significant stenosis, aneurysm, dissection, or arteriovenous malformation in the major intracranial arteries. Assessment of stenosis of the internal carotid arteries is based on NASCET criteria. ACT 112: Negative or not required by law. Electronically signed by: Colt Paula M.D. 08/03/2024 6:26 PM Neck CTA 08/03/24 17:31 CT angio neck with con, CT head/brain wo con, CT angio head w con CLINICAL HISTORY: neuro deficit, acute stroke suspected TECHNIQUE: Contiguous axial CT images of the head were acquired from the base of the skull to the vertex without intravenous contrast administration. CT angiography of the head and neck was performed following intravenous administration of iodinated contrast. Coronal and sagittal MIPS were obtained from the axial data set and were submitted for review. Automated dose lowering techniques and/or adjustment according to patient size were utilized for this examination. All measurements were calculated based on NASCET criteria. CT DOSE: 1408.86 mGy.cm Comparison: None available at the time of this dictation. FINDINGS: CT head: Areas of decreased attenuation are present in the periventricular and subcortical white matter bilaterally consistent with small vessel ischemic disease. Generalized cerebral atrophy with commensurate enlargement of the ventricles, sulci, and cisterns is also present. There is no acute intracranial hemorrhage or evidence of acute territorial infarction. No shift of the midline structures, mass effect, or extra-axial abnormalities are shown. Atherosclerotic calcifications are present in the intracranial segments of the internal carotid arteries. Lungs and soft tissues are unremarkable. CTA Neck: A 3 vessel aortic arch is shown. There is no significant atherosclerotic plaque in the aortic arch or the origins of the innominate, left common carotid, and left subclavian arteries. The common carotid, external carotid, cervical segments of the internal carotid arteries, and the cervical segments of the vertebral arteries are patent without hemodynamically significant stenosis. The right vertebral artery is dominant. CTA Head: The anterior and posterior cerebral circulations are patent. No hemodynamically significant stenosis, aneurysm, dissection, or arteriovenous malformation is shown. IMPRESSION: 1. No acute intracranial hemorrhage, evidence of acute territorial infarction, or other acute intracranial disease process. 2. No occlusion, hemodynamically significant stenosis, or dissection in the major cervical arteries. 3. No occlusion, hemodynamically significant stenosis, aneurysm, dissection, or arteriovenous malformation in the major intracranial arteries. Assessment of stenosis of the internal carotid arteries is based on NASCET criteria. ACT 112: Negative or not required by law. Electronically signed by: Colt Paula M.D. 08/03/2024 6:26 PM ECG Data Attestation: I personally reviewed and interpreted this ECG as follows: Rate (beats per minute): 79 Rhythm: + normal sinus ECG Intervals/blocks: + Right Bundle branch block, + Normal WA and + Normal QT-c ECG ST segments: + Normal ST segments Additional Comments: QRS 122 MDM Narrative 1724: The patient was evaluated in room C5. A complete history and physical exam was performed Cardiac monitoring: An order was placed for continuous cardiac monitoring. The monitor shows a rate of 90 with sinus rhythm interpreted by me No code stroke called as the patient is out of the window for TNKase. 1830: Vital signs stable. Labs and imaging are unremarkable. Patient will be admitted to medicine and [facility] hospitalist service for TIA. Impression & Plan TIA (transient ischemic attack) Discharge Plan Visit Data Chief Complaint: TIA Symptoms Stated Complaint: TIA SX ED Provider: Willie Calderon Discharge Problem: TIA (transient ischemic attack) Patient Disposition: Being Evaluated by Hospitalist Forms Stand Alone Forms: My [facility] Prescriptions Prescriptions: No Action (DME) FreeStyle Shlomo 2 Lisle Misc See Rx Instructions .Route Qty: 1 0RF Rx Instructions: As directed to check blood sugar (scan at least every 8 hours) (DME) pen needle, diabetic [BD Ultra-Fine Short Pen Needle] 31 gauge x 5/16" needle See Rx Instructions .Route Qty: 200 3RF Rx Instructions: Use with insulin pen twice daily Dx:E11.9 famotidine 40 mg tablet 40 mg PO PM Qty: 90 1RF (DME) FreeStyle Shlomo 2 Sensor Kit See Rx Instructions .ROUTE .COMPLEX Qty: 2 5RF Dose Instruction: DIRECTED TO CHECK BLOOD SUGARS CONTINUOUSLY (REPLACE EVERY 14 DAYS) Rx Instructions: DIRECTED TO CHECK BLOOD SUGARS CONTINUOUSLY (REPLACE EVERY 14 DAYS) Ozempic 2 mg/dose (8 mg/3 mL) pen injector 2 mg subcut WK Qty: 3 5RF Rx Instructions: Monday (DME) Oxygen Home Liters Per Minute See Rx Instructions .Route Qty: 1 0RF Rx Instructions: As directed (DME) Shower Chair Misc See Rx Instructions .Route Qty: 1 0RF Rx Instructions: Shower transfer bench-G62.9 cholecalciferol (vitamin D3) 50 mcg (2,000 unit) capsule 2,000 unit PO DAILY Qty: 90 1RF sertraline 100 mg tablet 200 mg PO DAILY 90 Days Qty: 180 1RF Jardiance 10 mg tablet 10 mg PO QAM Qty: 30 0RF diclofenac sodium [Voltaren Arthritis Pain] 1 % gel 4 g topical QID PRN (Reason: Pain) ondansetron HCl 4 mg tablet 4 mg PO Q6H PRN (Reason: NAUSEA/VOMITING) Qty: 10 0RF clopidogrel 75 mg Tablet 75 mg PO QAM Qty: 30 0RF atorvastatin 80 mg tablet 80 mg PO DAILY Qty: 30 0RF pantoprazole 40 mg Tablet,Delayed Release (Dr/Ec) 40 mg PO DAILY Qty: 30 0RF torsemide 100 mg tablet 50 mg PO QAM PRN (Reason: Weight gain or leg swelling) Qty: 15 0RF Referrals Referrals: Melissa Frazier MD [Primary Care Provider] -
--- NOTE | 2024-08-03 18:28 | CT Scan Report ---
CT angio neck with con, CT head/brain wo con, CT angio head w con CLINICAL HISTORY: neuro deficit, acute stroke suspected TECHNIQUE: Contiguous axial CT images of the head were acquired from the base of the skull to the ann itzel without intravenous contrast administration. CT angiography of the head and neck was performed f ollowing intravenous administration of iodinated contrast. Coronal and sagittal MIPS were obtained fr om the axial data set and were submitted for review. Automated dose lowering techniques and/or adjus tment according to patient size were utilized for this examination. All measurements were calculated based on NASCET criteria. CT DOSE: 1408.86 mGy.cm Comparison: None available at the time of this dictation. FINDINGS: CT head: Areas of decreased attenuation are present in the periventricular and subcortical white jesus er bilaterally consistent with small vessel ischemic disease. Generalized cerebral atrophy with comme nsurate enlargement of the ventricles, sulci, and cisterns is also present. There is no acute intracr anial hemorrhage or evidence of acute territorial infarction. No shift of the midline structures, mas s effect, or extra-axial abnormalities are shown. Atherosclerotic calcifications are present in the intracranial segments of the internal carotid arteries. Lungs and soft tissues are unremarkable. CTA Neck: A 3 vessel aortic arch is shown. There is no significant atherosclerotic plaque in the aor tic arch or the origins of the innominate, left common carotid, and left subclavian arteries. The co mmon carotid, external carotid, cervical segments of the internal carotid arteries, and the cervical segments of the vertebral arteries are patent without hemodynamically significant stenosis. The right vertebral artery is dominant. CTA Head: The anterior and posterior cerebral circulations are patent. No hemodynamically significan t stenosis, aneurysm, dissection, or arteriovenous malformation is shown. IMPRESSION: 1. No acute intracranial hemorrhage, evidence of acute territorial infarction, or other acute intrac ranial disease process. 2. No occlusion, hemodynamically significant stenosis, or dissection in the major cervical arteries. 3. No occlusion, hemodynamically significant stenosis, aneurysm, dissection, or arteriovenous malfor mation in the major intracranial arteries. Assessment of stenosis of the internal carotid arteries is based on NASCET criteria. ACT 112: Negative or not required by law. Electronically signed by: Colt Paula M.D. 08/03/2024 6:26 PM
[2024-08-03] MEDS: ASPIRIN CHEW 324 MG PO STA (18:46)
--- NOTE | 2024-08-03 20:14 | History & Physical Report ---
Date of Service August 03, 2024 Assessment & Plan (1) Stroke-like symptoms: (2) Memory deficits: (3) Hypercalcemia: (4) Type 2 diabetes mellitus: (5) Anxiety and depression: (6) Hypertension: (7) Neuropathy: (8) Hyperlipidemia: Plan Strokelike symptoms- Patient was initially admitted from 07/21-07/23/2024 with similar symptoms. At that time CT scan head, carotid Dopplers, and MRA of head were all negative. MRI of cervical spine showed a C7 radiculopathy This evening CT scan of head, and CTA head and neck are negative for acute findings, but did show chronic small vessel disease Patient's symptoms are resolved at this time Persistent issues are that of hypercalcemia, with noted diagnosis of hyperparathyroidism at last hospitalization Continue clopidogrel 75 mg every morning, Add ASA 81mg q AM Echocardiogram was performed last hospitalization, which showed ejection f raction of 55-60% An additional test to consider may be an EEG Consult neurology Hypercalcemia/hyperparathyroidism Elevated calcium may be possibly be contributing to his symptoms He will need to get a parathyroid uptake scan scheduled in the outpatient setting Intentional weight loss- Patient reportedly has lost 60 pounds since he has been on Jardiance and semaglutide- Consideration to potential side effect of these medications Anxiety and depression- Continue sertraline History of Present Illness Chief Complaint: The patient presents to the emergency department complaining the acute development of difficulty with speech, his head and face feeling numb, difficulty speaking and getting his words out, and worse than usual ambulatory dysfunction. Reports his symptoms are similar to the symptoms that brought him in to the hospital from 07/21-07/23/2024. Primary Care Provider: Melissa Frazier MD The patient is a 79-year-old male with a past medical history including TIA, hypercalcemia, memory deficits, cervical spinal stenosis, diabetes mellitus type 2, anxiety and depression, dyslipidemia, hypertension, restrictive cardiomyopathy, GERD, obesity hypoventilation syndrome, BPH, RAMAN, neuropathy and lumbar radiculopathy. He was most recently admitted continently from 07/21- 07/23/2024 for strokelike symptoms. During that admission, he had a CT scan of the head, carotid Dopplers, MRA of head, all of which were negative. He present s to the emergency department with approximately 3 minutes of difficulty with speech and ambulatory dysfunction, further persistence numbness in face, which since have resolved. In the emergency department this evening, patient had a CT scan of head which showed no acute findings, CTA head and neck which showed no acute findings, but did show chronic small vessel disease. Allergies Allergy/AdvReac Type Severity Reaction Status Date / Time adhesive tape Allergy Mild Redness of Verified 08/02/24 10:24 Skin Iodinated Contrast Media AdvReac Intermediate Gastrointestinal Verified 08/02/24 10:24 Upset iodine AdvReac Unknown "iodine Verified 08/02/24 10:24 solution caused unknown" Home Medications Medication Instructions Recorded Confirmed Type empagliflozin 10 mg tablet 10 mg PO QAM #30 tabs 01/22/22 08/03/24 Rx (Jardiance) Oxygen Home #1 ea 05/31/22 08/03/24 Rx flash glucose scanning reader #1 ea 06/02/22 08/03/24 Rx (FreeStyle Shlomo 2 [place]) pen needle, diabetic 31 gauge x #200 ea 06/13/22 08/03/24 Rx 5/16" (BD Ultra-Fine Short Pen Needle) Shower Chair #1 ea 02/15/23 08/03/24 Rx diclofenac sodium 1 % topical gel 4 g topical QID PRN Pain 01/20/24 08/03/24 History (Voltaren Arthritis Pain) ondansetron HCl 4 mg tablet 4 mg PO Q6H PRN NAUSEA/VOMITING 01/24/24 08/03/24 Rx #10 tabs famotidine 40 mg tablet 40 mg PO PM #90 tabs 03/20/24 08/03/24 Rx flash glucose sensor (FreeStyle #2 KITS 03/25/24 08/03/24 Rx Shlomo 2 Sensor kit) semaglutide 2 mg/dose (8 mg/3 mL) 2 mg (0.75 mL) subcut WK #3 mL 04/10/24 08/03/24 Rx subcutaneous pen injector (Ozempic) clopidogrel 75 mg tablet 75 mg PO QAM #30 tabs 07/23/24 08/03/24 Rx torsemide 100 mg tablet 50 mg (1/2 x 100 mg) PO QAM PRN 07/23/24 08/03/24 Rx Weight gain or leg swelling #15 tabs sertraline 100 mg tablet 200 mg (2 x 100 mg) PO DAILY 90 08/02/24 08/03/24 Rx days #180 tabs atorvastatin 80 mg tablet 80 mg PO QAM 08/03/24 08/03/24 History cholecalciferol (vitamin D3) 50 2,000 unit PO QAM 08/03/24 08/03/24 History mcg (2,000 unit) capsule Past Med/Surg History Problem List (Updated 08/04/24 @ 03:37 by Primitivo Rodas MD) Hyperlipidemia Hypokalemia (Acute) TIA (transient ischemic attack) (Acute) Hypercalcemia Memory deficits Cervical spinal stenosis Stroke-like symptoms (Acute) History of incision and drainage (06/04/24) Left Shoulder Abscess Incision and Drainage(Left) - Parminder Trotter, Type 2 diabetes mellitus Anxiety and depression Atherogenic dyslipidemia Q fever Weakness (Acute) Sepsis (Acute) Hypertension Leukocytosis Shoulder pain, right Testicular nodule Restrictive cardiomyopathy GERD (gastroesophageal reflux disease) Complete rotator cuff tear of left shoulder (01/08/14) Obesity hypoventilation syndrome Chronic diastolic heart failure BPH (benign prostatic hyperplasia) Depression Obstructive sleep apnea Morbid obesity Constipation Trigeminal neuralgia of left side of face Lower back pain Neuropathy Lumbar radiculopathy Medical History Encounter for pre-operative examination Restrictive lung disease secondary to obesity CKD (chronic kidney disease) stage 3, GFR 30-59 ml/min History of septic arthritis History of pressure ulcer rt ankle stage 2 Right knee pain Hypoxia Degenerative disc disease Osteoarthritis BPH (benign prostatic hyperplasia) Hyperlipidemia Hypertension Chronic diastolic heart failure, NYHA class 3 Nonobstructive atherosclerosis of coronary artery H/O deep venous thrombosis 5+ yrs ago s/p fall Pulmonary emphysema GERD (gastroesophageal reflux disease) Sleep apnea BIPAP Restrictive cardiomyopathy Surgical History History of open reduction and internal fixation (ORIF) procedure LEFT WRIST (HARDWARE REMOVED) 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) History of esophagogastroduodenoscopy (EGD) History of herniorrhaphy multiple History of tooth extraction History of cataract surgery RT/LEFT Difficult intubation "Elective" glidescope noted on 08/2018 [facility] record Status post total hip replacement, left History of colonoscopy History of arthroscopy RIGHT SHOULDER Hx of transurethral resection of prostate History of total knee replacement RIGHT/LEFT History of cardiac cath MULTIPLE (NO STENTS PLACED) MOST RECENT= 2018 S/P cholecystectomy Family History Mother , age 92 of a stroke Stroke Alzheimer disease Father , age 65 of a tree falling on him Accident, Onset Age: 65 Was in his yard cutting trees and a tree trunk fell and killed him Sister Breast cancer Daughter Brain tumor Denies family history of Ovarian cancer Prostate cancer Myocardial infarction Colorectal cancer Social History Smoking Status: Never smoker Tobacco Type: Cigarettes Age Started Using Tobacco: 18; Age Quit Using Tobacco: 30; packs per day: 1; Cigarettes Per Day: 1-2 ppd; Second Hand Exposure: No; Do You Dip or Chew Tobacco: No; Tobacco Cessation Education Requested by Patient: No Hx Alcohol Use: No Hx Substance Use: No Preferred Language: Bol[place]ian Communication Ability: Effective Visual Impairment: No Limitations Hearing Ability: Normal Elementary Secretary Required: No Beliefs That Will Affect Care: None marital status: Current Living Situation: Spouse Current Living Situation Comment: lives at home with current occupational status: retired 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[employer], 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, 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 How many Children do You have: 2 Other Information That Helps Us Care for You: No Feels Safe at Home: Yes Safety Concerns: Feels Safe At This Time Childhood Exposure to Second-Hand Smoke: No Diet: regular Diet Comment: regular Dental Care, Regularly: Yes Physical Activity Frequency: Does not Exercise Seatbelt Use: sometimes Sunscreen Use: No Assistive Devices: Cane Review of Systems Review of Systems: The patient denies chest pain, palpitations, shortness of breath, dyspnea on exertion, cough, lower extremity swelling, sore throat, fevers, chills, sweats, nausea, vomiting, diarrhea , constipation, abdominal pain, pelvic pain, blood in urine or stool, dysuria, urinary frequency or urgency, memory loss, loss of consciousness, rash, abnormal bruising or bleeding, generalized arthralgias or myalgias, back or neck pain, or night sweats. The review of systems is otherwise negative other than for that already noted above, and at least 10 systems have been reviewed. Physical Exam Physical Exam: The patient is awake, alert and oriented 3, well developed and well nourished, normocephalic and atraumatic, lying in bed and in no acute distress. HEENT--PERRL, EOMI, mucous membranes and oropharynx normal Neck--supple. No JVD. No bruits. Thyroid normal, trachea midline, no adenop athy. Heart--normal S1 and S2. No murmurs, rubs or gallops. Lungs--clear bilaterally, no respiratory distress, no accessory muscle use. Abdomen--normal bowel sounds and soft. Nontender. Nondistended, no hernias or masses, no organomegaly. Extremities--no cyanosis or clubbing. No edema. Dermatologic--normal skin turgor, normal color, no abnormal lymph nodes, no rash. Neurologic--cranial nerves II through XII grossly intact. Rheumatologic--normal range of motion. Psychiatric--normal affect. Results & Data Results & Data Vital Signs (Past 12 Hours) Vital Signs Temp Pulse Pulse Resp BP BP Pulse Ox 08/03/24 18:25 95 H 18 169/91 H 96 08/03/24 17:29 82 08/03/24 17:12 36.9 C 82 16 153/81 H 97 O2 Del Method 08/03/24 18:25 Room Air 08/03/24 17:29 08/03/24 17:12 Room Air Laboratory Results Laboratory Results WBC 11.17 K/ul (4.8-10.8) H 08/03/24 17:35 RBC 5.88 M/uL (4.70-6.10) 08/03/24 17:35 Hgb 15.1 g/dl (14.0-18.0) 08/03/24 17:35 POC Hgb 16.7 g/dl (14.0-18.0) 08/03/24 17:40 Hct 50.0 % (42.0-52.0) 08/03/24 17:35 POC Hct 49 % (42-52) 08/03/24 17:40 MCV 85.0 fL (80.0-100.0) 08/03/24 17:35 MCH 25.7 pg (25.0-34.0) 08/03/24 17:35 MCHC 30.2 g/dL (32.0-36.0) L 08/03/24 17:35 RDW Std Deviation 47.1 fL (36.4-46.3) H 08/03/24 17:35 RDW Coeff of Kartik 15.1 % (11.5-14.5) H 08/03/24 17:35 Plt Count 274 K/uL (130-400) 08/03/24 17:35 MPV 10.2 fL (9.4-12.4) 08/03/24 17:35 Immature Gran % (Auto) 0.4 % 08/03/24 17:35 Neut % (Auto) 67.7 % 08/03/24 17:35 Lymph % (Auto) 21.8 % 08/03/24 17:35 [place] % (Auto) 8.0 % 08/03/24 17:35 Eos % (Auto) 1.6 % 08/03/24 17:35 Baso % (Auto) 0.5 % 08/03/24 17:35 Neut # (Auto) 7.57 K/uL (1.40-6.50) H 08/03/24 17:35 Lymph # (Auto) 2.43 K/uL (1.20-3.40) 08/03/24 17:35 [place] # (Auto) 0.89 K/uL (0.11-0.59) H 08/03/24 17:35 Eos # (Auto) 0.18 K/uL (0.00-0.50) 08/03/24 17:35 Baso # (Auto) 0.06 K/uL (0.00-0.20) 08/03/24 17:35 Immature Gran # (Auto) 0.04 K/uL (0.01-0.20) 08/03/24 17:35 PT 10.7 Seconds (9.0-12.0) 08/03/24 17:35 INR 1.0 (0.9-1.1) 08/03/24 17:35 APTT 26 Seconds (21-31) 08/03/24 17:35 PTT Ratio 1.0 08/03/24 17:35 POC Sodium 141 mmol/L (135-144) 08/03/24 17:40 Sodium 138 mmol/L (136-145) 08/03/24 17:35 POC Potassium 4.1 mmol/L (3.3-5.0) 08/03/24 17:40 Potassium 4.1 mmol/L (3.5-5.1) 08/03/24 17:35 POC Chloride 104 mmol/L (101-112) 08/03/24 17:40 Chloride 104 mmol/L (98-107) 08/03/24 17:35 Carbon Dioxide 29 mmol/L (21-32) 08/03/24 17:35 POC Total CO2 27 mmol/L (24-31) 08/03/24 17:40 Anion Gap 5 (3-11) 08/03/24 17:35 POC Anion Gap 15.0 mmol/L (16-25) L 08/03/24 17:40 POC BUN 10 mg/dl (7-18) 08/03/24 17:40 BUN 11 mg/dl (6-23) 08/03/24 17:35 Creatinine 1.21 mg/dl (0.6-1.4) 08/03/24 17:35 POC Creatinine 1.2 mg/dl (0.6-1.3) 08/03/24 17:40 Est Cr Clr Drug Dosing Not Reportable 08/03/24 17:35 eGFR 61.67 08/03/24 17:35 BUN/Creatinine Ratio 9.1 (10-20) L 08/03/24 17:35 Glucose 108 mg/dl (70-99(Fasting)) H 08/03/24 17:35 POC Glucose 118 mg/dl (70-99) H 08/03/24 22:44 POC Glucose (other) 109 mg/dl (70-99) H 08/03/24 17:40 Calcium 10.8 mg/dl (8.6-10.3) H 08/03/24 17:35 POC Ioniz Calcium Mima 1.39 mmol/l (1.12-1.32) H 08/03/24 17:40 Magnesium 2.0 mg/dl (1.7-2.4) 08/03/24 17:35 Total Bilirubin 0.5 mg/dl (0.2-1.0) 08/03/24 17:35 AST 15 U/L (13-39) 08/03/24 17:35 ALT 14 U/L (7-52) 08/03/24 17:35 Alkaline Phosphatase 82 U/L (34-104) 08/03/24 17:35 Troponin I High Sens 8.4 pg/ml (0-20) 08/03/24 17:35 Total Protein 7.6 gm/dl (6.0-8.3) 08/03/24 17:35 Albumin 4.2 gm/dl (3.4-5.0) 08/03/24 17:35 Globulin 3.4 gm/dl (2.5-4.0) 08/03/24 17:35 Albumin/Globulin Ratio 1.2 (0.9-2) 08/03/24 17:35 Blood Type A Positive 08/03/24 19:13 Antibody Screen NEGATIVE 08/03/24 19:13 Impressions Chest X-Ray 08/03/24 17:31 XR chest 1V portable CLINICAL HISTORY: neuro deficit, acute stroke suspected TECHNIQUE: Single frontal radiograph of the chest was obtained. Comparison: Comparison is made to chest radiograph 07/21/2024 FINDINGS: Exam is limited by underpenetration. Cardiomegaly is noted. The aortic arch is calcified. The lungs are clear. No evidence of pleural effusion or pneumothorax. IMPRESSION: No acute chest disease. ACT 112: Negative or not required by law. Electronically signed by: Colt Paula M.D. 08/03/2024 5:[address] 08/03/24 17:31 CT angio neck with con, CT head/brain wo con, CT angio head w con CLINICAL HISTORY: neuro deficit, acute stroke suspected TECHNIQUE: Contiguous axial CT images of the head were acquired from the base of the skull to the vertex without intravenous contrast administration. CT angiography of the head and neck was performed following intravenous administration of iodinated contrast. Coronal and sagittal MIPS were obtained from the axial data set and were submitted for review. Automated dose lowering techniques and/or adjustment according to patient size were utilized for this examination. All measurements were calculated based on NASCET criteria. CT DOSE: 1408.86 mGy.cm Comparison: None available at the time of this dictation. FINDINGS: CT head: Areas of decreased attenuation are present in the periventricular and subcortical white matter bilaterally consistent with small vessel ischemic disease. Generalized cerebral atrophy with commensurate enlargement of the ventricles, sulci, and cisterns is also present. There is no acute intracranial hemorrhage or evidence of acute territorial infarction. No shift of the midline structures, mass effect, or extra-axial abnormalities are shown. Atherosclerotic calcifications are present in the intracranial segments of the internal carotid arteries. Lungs and soft tissues are unremarkable. CTA Neck: A 3 vessel aortic arch is shown. There is no significant atherosclerotic plaque in the aortic arch or the origins of the innominate, left common carotid, and left subclavian arteries. The common carotid, external carotid, cervical segments of the internal carotid arteries, and the cervical segments of the vertebral arteries are patent without hemodynamically significant stenosis. The right vertebral artery is dominant. CTA Head: The anterior and posterior cerebral circulations are patent. No hemodynamically significant stenosis, aneurysm, dissection, or arteriovenous malformation is shown. IMPRESSION: 1. No acute intracranial hemorrhage, evidence of acute territorial infarction, or other acute intracranial disease process. 2. No occlusion, hemodynamically significant stenosis, or dissection in the major cervical arteries. 3. No occlusion, hemodynamically significant stenosis, aneurysm, dissection, or arteriovenous malformation in the major intracranial arteries. Assessment of stenosis of the internal carotid arteries is based on NASCET criteria. ACT 112: Negative or not required by law. Electronically signed by: Colt Paula M.D. 08/03/2024 6:26 PM Head CTA 08/03/24 17:31 CT angio neck with con, CT head/brain wo con, CT angio head w con CLINICAL HISTORY: neuro deficit, acute stroke suspected TECHNIQUE: Contiguous axial CT images of the head were acquired from the base of the skull to the vertex without intravenous contrast administration. CT angiography of the head and neck was performed following intravenous administration of iodinated contrast. Coronal and sagittal MIPS were obtained from the axial data set and were submitted for review. Automated dose lowering techniques and/or adjustment according to patient size were utilized for this examination. All measurements were calculated based on NASCET criteria. CT DOSE: 1408.86 mGy.cm Comparison: None available at the time of this dictation. FINDINGS: CT head: Areas of decreased attenuation are present in the periventricular and subcortical white matter bilaterally consistent with small vessel ischemic disease. Generalized cerebral atrophy with commensurate enlargement of the ventricles, sulci, and cisterns is also present. There is no acute intracranial hemorrhage or evidence of acute territorial infarction. No shift of the midline structures, mass effect, or extra-axial abnormalities are shown. Atherosclerotic calcifications are present in the intracranial segments of the internal carotid arteries. Lungs and soft tissues are unremarkable. CTA Neck: A 3 vessel aortic arch is shown. There is no significant atherosclerotic plaque in the aortic arch or the origins of the innominate, left common carotid, and left subclavian arteries. The common carotid, external carotid, cervical segments of the internal carotid arteries, and the cervical segments of the vertebral arteries are patent without hemodynamically significant stenosis. The right vertebral artery is dominant. CTA Head: The anterior and posterior cerebral circulations are patent. No hemodynamically significant stenosis, aneurysm, dissection, or arteriovenous malformation is shown. IMPRESSION: 1. No acute intracranial hemorrhage, evidence of acute territorial infarction, or other acute intracranial disease process. 2. No occlusion, hemodynamically significant stenosis, or dissection in the major cervical arteries. 3. No occlusion, hemodynamically significant stenosis, aneurysm, dissection, or arteriovenous malformation in the major intracranial arteries. Assessment of stenosis of the internal carotid arteries is based on NASCET crite mallorie. ACT 112: Negative or not required by law. Electronically signed by: Colt Paula M.D. 08/03/2024 6:26 PM Neck CTA 08/03/24 17:31 CT angio neck with con, CT head/brain wo con, CT angio head w con CLINICAL HISTORY: neuro deficit, acute stroke suspected TECHNIQUE: Contiguous axial CT images of the head were acquired from the base of the skull to the vertex without intravenous contrast administration. CT angiography of the head and neck was performed following intravenous administration of iodinated contrast. Coronal and sagittal MIPS were obtained from the axial data set and were submitted for review. Automated dose lowering techniques and/or adjustment according to patient size were utilized for this examination. All measurements were calculated based on NASCET criteria. CT DOSE: 1408.86 mGy.cm Comparison: None available at the time of this dictation. FINDINGS: CT head: Areas of decreased attenuation are present in the periventricular and subcortical white matter bilaterally consistent with small vessel ischemic disease. Generalized cerebral atrophy with commensurate enlargement of the ventricles, sulci, and cisterns is also present. There is no acute intracranial hemorrhage or evidence of acute territorial infarction. No shift of the midline structures, mass effect, or extra-axial abnormalities are shown. Atheroscler otic calcifications are present in the intracranial segments of the internal carotid arteries. Lungs and soft tissues are unremarkable. CTA Neck: A 3 vessel aortic arch is shown. There is no significant atherosclerotic plaque in the aortic arch or the origins of the innominate, left common carotid, and left subclavian arteries. The common carotid, external carotid, cervical segments of the internal carotid arteries, and the cervical segments of the vertebral arteries are patent without hemodynamically significant stenosis. The right vertebral artery is dominant. CTA Head: The anterior and posterior cerebral circulations are patent. No hemodynamically significant stenosis, aneurysm, dissection, or arteriovenous malformation is shown. IMPRESSION: 1. No acute intracranial hemorrhage, evidence of acute territorial infarction, or other acute intracranial disease process. 2. No occlusion, hemodynamically significant stenosis, or dissection in the major cervical arteries. 3. No occlusion, hemodynamically significant stenosis, aneurysm, dissection, or arteriovenous malformation in the major intracranial arteries. Assessment of stenosis of the internal carotid arteries is based on NASCET criteria. ACT 112: Negative or not required by law. Electronically signed by: Colt Paula M.D. 08/03/2024 6:26 PM Code Status & VTE Plan Code Status Full code VTE Prophylaxis Plan VTE Prophylaxis will be ordered: Yes PG Care Time/CCT Total # of Minutes Spent Total Time Spent with Patient: Total time spent is greater than 50% in coordination of care (as documented) at patient's floor/unit and/or counseling patient: Coding Level of Care Code 81413 INT INP/OBS CARE 3/75MIN Diagnoses Stroke-like symptoms R29.90 Memory deficits R41.3 Hypercalcemia E83.52 Type 2 diabetes mellitus E11.9 Anxiety and depression F41.9; F32.9 Hypertension I10 Neuropathy G62.9 Hyperlipidemia, unspecified hyperlipidemia type E78.5 Hyperlipidemia type: unspecified (8) Hyperlipidemia Hyperlipidemia type: unspecified Qualified Code(s): E78.5 - Hyperlipidemia, unspecified
[2024-08-03] MEDS ORDERED: PHARMACIST DISCHARGE MED REC CONSULT PRN (22:09)
[2024-08-03] MEDS ORDERED: CARBOHYDRATES FOR HYPOGLYCEMIA PO PRN (22:09)
[2024-08-03] MEDS ORDERED: GLUCAGON FOR INJ 1 MG VIAL SQ PRN (22:09)
[2024-08-03] MEDS ORDERED: NON-FORMULARY MEDICATION (Semaglutide [Ozempic] 2 mg/dose (8 mg/3 mL) pen injector) SQ SCH (22:09)
[2024-08-03] MEDS ORDERED: GLUCOSE 40% GEL 15 GM TUBE PO PRN (22:09)
[2024-08-03] MEDS ORDERED: GLUCOSE 10 TAB/TUBE PO PRN (22:09)
[2024-08-03] MEDS ORDERED: DEXTROSE 50% 50 ML SYRINGE IV PRN (22:09)
[2024-08-03] MEDS ORDERED: ONDANSETRON 4 MG OD TAB PO PRN (22:30)
[2024-08-03] MEDS: INSULIN ASPART PER UNIT CHARGE SC SCH (22:53)
[2024-08-03] MEDS: FAMOTIDINE 40 MG TABLET PO SCH (22:59)
[2024-08-04 06:07] LABS: Basophils # (auto) 0.02 K/uL (0.00-0.20); Basophils % (auto) 0.2 %; Hemoglobin 14.4 g/dl (14.0-18.0); Immature Granulocytes # (auto) 0.06 K/uL (0.01-0.20); Immature Granulocytes % (auto) 0.6 %; Lymphocytes % (auto) 15.8 %; Mean Corpuscular Hemoglobin 25.9 pg (25.0-34.0); Mean Corpuscular Hgb Conc 30.6 g/dL (32.0-36.0); Mean Corpuscular Volume 84.4 fL (80.0-100.0); Mean Platelet Volume 10.3 fL (9.4-12.4); Monocytes # (auto) 0.75 K/uL (0.11-0.59); Monocytes % (auto) 7.4 %; Neutrophils # (auto) 7.67 K/uL (1.40-6.50); Platelet Count 284 K/uL (130-400); RDW Coefficient of Variation 15.1 % (11.5-14.5); RDW Standard Deviation 46.4 fL (36.4-46.3); Red Blood Count 5.57 M/uL (4.70-6.10)
[2024-08-04 06:24] LABS: Albumin Level 3.8 gm/dl (3.4-5.0); BUN Creatinine Ratio 10.9 (10-20); Calcium 10.2 mg/dl (8.6-10.3); Chol HDL Ratio 3.3 (0-5); Creatinine Clr Calc Pharmacy 73.6 ml/min; Magnesium 2.2 mg/dl (1.7-2.4); Phosphorus 2.4 mg/dl (2.5-4.9); Potassium 4.7 mmol/L (3.5-5.1)
[2024-08-04 07:49] LABS: Estimated Average Glucose 123 mg/dl; Hemoglobin A1C 5.9 % (4.5-5.6)
[2024-08-04] MEDS: ATORVASTATIN 40 MG TAB PO SCH (08:15)
[2024-08-04] MEDS: CLOPIDOGREL BISULFATE 75 MG TAB PO SCH (08:16)
[2024-08-04] MEDS: ASPIRIN 81 MG ECTAB PO SCH (08:17)
[2024-08-04] MEDS: SERTRALINE HCL 100 MG TABLET PO SCH (08:17)
[2024-08-04] MEDS: CHOLECALCIFEROL 25 MCG (1000 UNITS) TAB PO SCH (08:18)
[2024-08-04] MEDS: ACETAMINOPHEN 325 MG TAB PO PRN (08:38)
--- NOTE | 2024-08-04 11:07 | Neurology Consultation ---
Date of Consultation August 04, 2024 Assessment & Plan (1) TIA (transient ischemic attack): Plan 79-year-old male with probable recurrent TIA characterized by transient aphasia and perioral numbness resolving within about 3 minutes. Would consider a left thalamic localization, or left beck-insular localization. His CT angiography of the head and neck are unremarkable, no vascular lesion identified. His presentation is similar to what occurred at the time of his previous admission to [facility]. The episode does not seem consistent with a seizure. A cardiac arrhythmia should be considered. Would recommend a brain MRI without contrast. Agree with dual antiplatelet therapy, aspirin 81 mg/day and clopidogrel 75 mg/day for the time being. Continue with dual antiplatelet therapy for 3 weeks, afterwards, could either switch back to clopidogrel 75 mg/day or possibly Aggrenox monotherapy. Continue with atorvastatin 80 mg/day. His lipid panel appears fairly optimal. Would recommend outpatient cardiac monitoring, either Holter monitoring or 30- day MCOT. I note that his recent transthoracic echocardiogram with bubble study was nondiagnostic for PFO. Consider another attempt at a bubble study. May allow for permissive hypertension acutely, systolic blood pressure 140 to 160 mmHg. His blood pressure is currently modestly elevated, but within this range. His blood pressure will need ongoing outpatient monitoring. I am uncertain if he may have labile hypertension. He does have a history of type 2 diabetes mellitus as well. His hemoglobin A1c is significantly improved compared to what it had been in 2021. This issue will need ongoing monitoring as well. May follow-up in neurology clinic in 2 to 3 weeks, has seen Mary Jo Arguelles PA-C, and Dr. Kim previously. History of Present Illness Reason for Consultation: Strokelike symptoms Requesting Physician: Clark Attending Physician: Hilario Shirley History of Present Illness The patient is a 79-year-old left-handed male with a chief complaint of perioral numbness and word finding difficulty that began acutely yesterday morning. His symptoms resolved within about 3 minutes. However, he had [facility] with very similar symptoms earlier this month and had a thorough stroke evaluation at that time. Given concern for recurrent stroke or TIA, he presented to the emergency department yesterday for urgent assessment. He has been taking atorvastatin 80 mg/day and clopidogrel 75 mg/day. His blood pressure was 153/81 at the time of his initial emergency department assessment yesterday. His symptoms have not recurred. He denies headache, dizziness, vertigo, diplopia, focal weakness or sensory loss at this time. A CT of the head completed yesterday was negative for hemorrhage or acute process, no vascular abnormality identified on CTA of the head and neck. I independently reviewed these images. An electrocardiogram completed yesterday revealed a normal sinus rhythm, 79 bpm. An echocardiogram completed July 22 revealed mild concentric LVH, ejection fraction 55 to 60%, no regional wall motion abnormalities, borderline dilated right ventricle, no significant valvular pathology, nondiagnostic bubble study. Allergies Allergy/AdvReac Type Severity Reaction Status Date / Time adhesive tape Allergy Mild Redness of Verified 08/02/24 10:24 Skin Iodinated Contrast Media AdvReac Intermediate Gastrointestinal Verified 08/02/24 10: Upset iodine AdvReac Unknown "iodine Verified 08/02/24: solution caused unknown" Home Medications Medication Instructions Recorded Confirmed Type empagliflozin 10 mg tablet 10 mg PO QAM #30 tabs 01/22/22 08/03/24 Rx (Jardiance) Oxygen Home #1 ea 05/31/22 08/03/24 Rx flash glucose scanning reader #1 ea 06/02/22 08/03/24 Rx (FreeStyle Shlomo 2 [place]) pen needle, diabetic 31 gauge x #200 ea 06/13/22 08/03/24 Rx 5/16" (BD Ultra-Fine Short Pen Needle) Shower Chair #1 ea 02/15/23 08/03/24 Rx diclofenac sodium 1 % topical gel 4 g topical QID PRN Pain 01/20/24 08/03/24 History (Voltaren Arthritis Pain) ondansetron HCl 4 mg tablet 4 mg PO Q6H PRN NAUSEA/VOMITING 01/24/24 08/03/24 Rx #10 tabs famotidine 40 mg tablet 40 mg PO PM #90 tabs 03/20/24 08/03/24 Rx flash glucose sensor (FreeStyle #2 KITS 03/25/24 08/03/24 Rx Shlomo 2 Sensor kit) semaglutide 2 mg/dose (8 mg/3 mL) 2 mg (0.75 mL) subcut WK #3 mL 04/10/24 08/03/24 Rx subcutaneous pen injector (Ozempic) clopidogrel 75 mg tablet 75 mg PO QAM #30 tabs 07/23/24 08/03/24 Rx torsemide 100 mg tablet 50 mg (1/2 x 100 mg) PO QAM PRN 07/23/24 08/03/24 Rx Weight gain or leg swelling #15 tabs sertraline 100 mg tablet 200 mg (2 x 100 mg) PO DAILY 90 08/02/24 08/03/24 Rx days #180 tabs atorvastatin 80 mg tablet 80 mg PO QAM 08/03/24 08/03/24 History cholecalciferol (vitamin D3) 50 2,000 unit PO QAM 08/03/24 08/03/24 History mcg (2,000 unit) capsule Patient History Medical History Encounter for pre-operative examination Restrictive lung disease secondary to obesity CKD (chronic kidney disease) stage 3, GFR 30-59 ml/min History of septic arthritis History of pressure ulcer rt ankle stage 2 Right knee pain Hypoxia Degenerative disc disease Osteoarthritis BPH (benign prostatic hyperplasia) Hypertension Chronic diastolic heart failure, NYHA class 3 Nonobstructive atherosclerosis of coronary artery H/O deep venous thrombosis 5+ yrs ago s/p fall Pulmonary emphysema GERD (gastroesophageal reflux disease) Sleep apnea BIPAP Restrictive cardiomyopathy Surgical History History of open reduction and internal fixation (ORIF) procedure LEFT WRIST (HARDWARE REMOVED) 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) History of esophagogastroduodenoscopy (EGD) History of herniorrhaphy multiple History of tooth extraction History of cataract surgery RT/LEFT Difficult intubation "Elective" glidescope noted on 08/2018 [facility] record Status post total hip replacement, left History of colonoscopy History of arthroscopy RIGHT SHOULDER Hx of transurethral resection of prostate History of total knee replacement RIGHT/LEFT History of cardiac cath MULTIPLE (NO STENTS PLACED) MOST RECENT= 2018 S/P cholecystectomy Family History Mother , age 92 of a stroke Stroke Alzheimer disease Father , age 65 of a tree falling on him Accident, Onset Age: 65 Was in his yard cutting trees and a tree trunk fell and killed him Sister Breast cancer Daughter Brain tumor Denies family history of Ovarian cancer Prostate cancer Myocardial infarction Colorectal cancer Social History Smoking Status: Never smoker Tobacco Type: Cigarettes Age Started Using Tobacco: 18; Age Quit Using Tobacco: 30; packs per day: 1; Cigarettes Per Day: 1-2 ppd; Second Hand Exposure: No; Do You Dip or Chew Tobacco: No; Tobacco Cessation Education Requested by Patient: No Hx Alcohol Use: No Hx Substance Use: No Preferred Language: Greenlandic Communication Ability: Effective Visual Impairment: No Limitations Hearing Ability: Normal 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: No Beliefs That Will Affect Care: None marital status: Current Living Situation: Spouse Current Living Situation Comment: lives at home with current occupational status: retired 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[employer], 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, 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 How many Children do You have: 2 Other Information That Helps Us Care for You: No Feels Safe at Home: Yes Safety Concerns: Feels Safe At This Time Childhood Exposure to Second-Hand Smoke: No Diet: regular Diet Comment: regular Dental Care, Regularly: Yes Physical Activity Frequency: Does not Exercise Seatbelt Use: sometimes Sunscreen Use: No Assistive Devices: Cane Review of Systems Constitutional: no fever and no chills Eyes: no blind spots and no diplopia Ear, Nose, Mouth, Throat: no ear pain and no hearing loss Respiratory: no cough and no dyspnea Cardiovascular: no chest pain and no palpitations Gastrointestinal: no nausea and no vomiting Genitourinary: no dysuria Musculoskeletal: no myalgia and no muscle weakness Integumentary: no rash and no lesions Neurologic: as per Subjective / HPI Psychiatric: no depression and no anxiety Hematologic / Lymphatic: no easy bleeding and no easy bruising Exam (Neuro) Constitutional: well developed and well nourished; no acute distress Eyes: normal visual eagle by confrontation, PERRL and EOM intact bilaterally; no nystagmus Neurologic: Oriented to:: Person, Place and Time Memory: Short Term Intact and Remote Intact Attention: Span Intact and Concentration Intact Speech Fluency: negative Dysarthria or Dysfluency Speech Aphasia: negative Aphasia Fund of Knowledge: Current Events, Past History and Vocabulary Cranial Nerves: Normal II, III, IV, , V, VII, VIII, IX, X, XI and XII Motor Strength: Normal Lower Extremities and Normal Upper Extremities Motor Tone: Normal Lower Extremities and Normal Upper Extremities Muscle Bulk/Involuntary Movements: No Involuntary Movements; negative Muscle Atrophy Sensation: Light Touch Intact, Pain/Temperature Intact and Proprioception Intact Coordination: Normal; negative Dysdiadochokinesia, Finger-Nose Abnormal or Heel-Bojorquez Abnormal Deep Tendon Reflexes: Rt Triceps: 2+, Lt Triceps: 2+, Rt Biceps: 2+, Lt Biceps: 2+, Rt Brachioradialis: 2+, Lt Brachioradialis: 2+, Rt Patellar: 2+, Lt Patellar: 2+, Rt Ankle: 2+ and Lt Ankle: 2+ Special Tests: negative Babinski Present Results & Data Vital Signs (Past 12 Hours) Vital Signs Temp Pulse Pulse Resp BP Pulse Ox O2 Del Method 08/04/24 07:16 36.5 C 82 19 167/91 H 97 Room Air 08/04/24 02:54 36.6 C 80 18 152/81 H 96 Room Air 08/03/24 23:47 82 Laboratory Results WBC 10.10, hemoglobin 14.4, hematocrit 47.0, MCV 84.4, platelet count 284, sodium 138, potassium 4.7, BUN 12, creatinine 1.10, glucose 132, hemoglobin A1c 5.9, calcium 10.2, magnesium 2.2, triglycerides 80, cholesterol 130, LDL 74, VLDL 16, HDL 40 Coding Level of Care Code 25137 INT INP/OBS CARE 375MIN Diagnoses TIA (transient ischemic attack) G45.9 Time Spent (min) 90 Comment Total time includes patient contact, chart review, counseling, note preparation
[2024-08-04] MEDS: LORazepam 2 MG/1 ML VIAL IV PRN (15:33)
--- NOTE | 2024-08-04 16:16 | Magnetic Resonance Report ---
MR brain wo con CLINICAL HISTORY: stroke like symptoms TECHNIQUE: Multiplanar and multisequence MR images of the brain were obtained without intravenous con trast. Comparison: Comparison is made to MRI brain 07/31/2024. CTA head and neck 07/04/2024 FINDINGS: No abnormal restricted diffusion is identified. Foci of T2 and FLAIR hyperintensity are noted in the paraventricular areas consistent with chronic small vessel ischemic disease. Ex vacuo ventriculomegal y and sulcal enlargement is noted compatible with diffuse volume loss. No mass is seen. There is no m ass effect or midline shift. There is no evidence of acute intraparenchymal hemorrhage. No extra axia l fluid collections are seen. The corpus callosum, pituitary gland, and cerebellar tonsils appear teresita ssly unremarkable. Flow voids of the major intracranial arterial vessels are identified. The imaged portions of the para nasal sinuses, mastoid air cells, and orbits are unremarkable. IMPRESSION: No acute abnormality and in particular no evidence of acute infarct. ACT 112: Negative or not required by law. Electronically signed by: Colt Paula M.D. 08/04/2024 4:15 PM
--- NOTE | 2024-08-05 06:54 | Hospitalist Progress Note ---
Date of Service August 04, 2024 Assessment & Plan (1) Stroke-like symptoms: (2) Memory deficits: (3) Hypercalcemia: (4) Type 2 diabetes mellitus: (5) Anxiety and depression: (6) Hypertension: (7) Neuropathy: (8) Hyperlipidemia: Plan Strokelike symptoms- Patient was initially admitted from 07/21-07/23/2024 with similar symptoms. At that time CT scan head, carotid Dopplers, and MRA of head were all negative. MRI of cervical spine showed a C7 radiculopathy This evening CT scan of head, and CTA head and neck are negative for acute findings, but did show chronic small vessel disease Patient's symptoms are resolved at this time Persistent issues are that of hypercalcemia, with noted diagnosis of hyperparathyroidism at last hospitalization Continue clopidogrel 75 mg every morning, Add ASA 81mg q AM Echocardiogram was performed last hospitalization, which showed ejection f raction of 55-60% An additional test to consider may be an EEG Consult neurology Appreciate input. Awaiting MRI results. Regarding echo, I spoke with cardiology. No purpose of reordering echo as repeat image quality would not be able to determine if there a shunt present. Do not need to order echo. If Patient is feeling better, will discharge on 08/05 Hypercalcemia/hyperparathyroidism Elevated calcium may be possibly be contributing to his symptoms He will need to get a parathyroid uptake scan scheduled in the outpatient setting Intentional weight loss- Patient reportedly has lost 60 pounds since he has been on Jardiance and semaglutide- Consideration to potential side effect of these medications Anxiety and depression- Continue sertraline Admission and Anticipated Discharge Date Admission Date: August 03, 2024 Subjective 79 yo male reports not feeling at baseline, but he is slightly better today. He can't realy quantify it, but just feels off. Review of Systems Review of Systems: All systems reviewed & are unremarkable except as noted in HPI & below Physical Exam Physical Exam: The patient is awake, alert and oriented 3, sitting at bedside. HEENT--PERRL, EOMI, mucous membranes and oropharynx normal Neck--supple. No JVD. No bruits. Thyroid normal, trachea midline, no adenopathy. Heart--normal S1 and S2. No murmurs, rubs or gallops. Lungs--clear bilaterally, no respiratory distress, no accessory muscle use. Abdomen--normal bowel sounds and soft. Nontender. Nondistended, no hernias or masses, no organomegaly. Extremities--no cyanosis or clubbing. No edema. Results & Data Results & Data Vital Signs (Past 12 Hours) Vital Signs Temp Pulse Pulse Resp BP Pulse Ox O2 Del Method 08/05/24 02:43 36.8 C 92 H 16 153/92 H 93 Room Air 08/04/24 22:50 36.7 C 76 16 150/82 H 94 Room Air 08/04/24 22:50 78 08/04/24 19:10 36.5 C 81 16 162/89 H 96 Room Air PG Care Time/CCT Total # of Minutes Spent Total Time Spent with Patient: Total time spent is greater than 50% in coordination of care (as documented) at patient's floor/unit and/or counseling patient: Coding Level of Care Code 07526 SUB INP/OBS CARE 2/35MIN Diagnoses Stroke-like symptoms R29.90 Memory deficits R41.3 Hypercalcemia E83.52 Type 2 diabetes mellitus E11.9 Anxiety and depression F41.9; F32.9 Hypertension I10 Neuropathy G62.9 Hyperlipidemia, unspecified hyperlipidemia type E78.5 Hyperlipidemia type: unspecified (8) Hyperlipidemia Hyperlipidemia type: unspecified Qualified Code(s): E78.5 - Hyperlipidemia, unspecified
[2024-08-05 07:12] LABS: Basophils # (auto) 0.05 K/uL (0.00-0.20); Basophils % (auto) 0.4 %; Eosinophils # (auto) 0.19 K/uL (0.00-0.50); Eosinophils % (auto) 1.7 %; Hematocrit (blood only) 47.3 % (42.0-52.0); Hemoglobin 14.4 g/dl (14.0-18.0); Immature Granulocytes # (auto) 0.06 K/uL (0.01-0.20); Immature Granulocytes % (auto) 0.5 %; Lymphocytes # (auto) 2.84 K/uL (1.20-3.40); Lymphocytes % (auto) 25.3 %; Mean Corpuscular Hemoglobin 25.6 pg (25.0-34.0); Mean Corpuscular Hgb Conc 30.4 g/dL (32.0-36.0); Mean Platelet Volume 10.2 fL (9.4-12.4); Monocytes # (auto) 1.16 K/uL (0.11-0.59); Monocytes % (auto) 10.3 %; Neutrophils # (auto) 6.92 K/uL (1.40-6.50); Neutrophils % (auto) 61.8 %; Platelet Count 262 K/uL (130-400); RDW Coefficient of Variation 15.4 % (11.5-14.5); RDW Standard Deviation 46.5 fL (36.4-46.3); Red Blood Count 5.63 M/uL (4.70-6.10); White Blood Count 11.22 K/ul (4.8-10.8)
[2024-08-05 07:26] LABS: Albumin Level 3.8 gm/dl (3.4-5.0); Calcium 10.1 mg/dl (8.6-10.3); Creatinine Clr Calc Pharmacy 64.9 ml/min; Magnesium 2.2 mg/dl (1.7-2.4); Phosphorus 2.8 mg/dl (2.5-4.9); Potassium 4.5 mmol/L (3.5-5.1)
--- NOTE | 2024-08-05 11:29 | Pharmacy Report ---
- Date of Service August 05, 2024 - Pharmacy CVA/TIA Medication Review Medications to Prevent Stroke handout has been added to the patients discharge packet. Antiplatelet(s) * Apirin 81mg daily + plavix 75mg daily x 3 weeks, then plavix or Aggrenox monotherapy Cholesterol * High intensity statin: atorvastatin 80 mg daily DVT Prophylaxis * SCD knee Therapeutic Anticoagulation * No history of Afib/Aflutter noted Type 2 Diabetes * Patient has T2DM and patient is prescribed semaglutide.
--- NOTE | 2024-08-05 12:23 | Magnetic Resonance Report ---
MRI OF THE BRAIN WITHOUT IV CONTRAST CLINICAL HISTORY: Left upper and lower extremity weakness COMPARISON STUDY: MRI of the brain dated 08/04/2024 TECHNIQUE: MRI of the brain was performed utilizing various T1 and T2-weighted sequences in the axial , sagittal, and coronal planes. IV contrast was not administered for this examination. The examinatio n is degraded by motion artifact. FINDINGS: Brain parenchyma: There is age-related involutional change noting mild microangiopathic disease. Ther e is no hemorrhage or mass effect. There is no restricted diffusion to suggest acute ischemia. [place]-w annabel matter differentiation is preserved. No extra-axial fluid collection is seen. The cerebellar ton sils are normal in configuration. Ventricles, sulci, and cisterns: Prominent secondary to involutional change. Pituitary and sella: Unremarkable. Intracranial vasculature: Normal flow voids are maintained at the skull base. Orbits: The bony orbits are grossly intact. Orbital contents are normal in appearance noting bilatera l ocular lens implants. Sinuses and mastoids: There is mild mucosal thickening within the ethmoid sinuses. The remaining para nasal sinuses and the metatarsals are clear. Calvarium: Unremarkable. Cervical cord: Partially visualized cervical spinal cord is normal in morphology and signal intensity . IMPRESSION: No acute intracranial abnormality. ACT 112: Negative or not required by law. Electronically signed by: Don Toledo M.D. 08/05/2024 12:21 PM
--- NOTE | 2024-08-05 12:47 | Magnetic Resonance Report ---
MRI OF THE LUMBAR SPINE WITHOUT CONTRAST CLINICAL HISTORY: Left leg weakness. COMPARISON STUDY: Lumbar spine MRI May 09, 2022. TECHNIQUE: Utilizing a 1.5 Mary Jane magnet and dedicated coil, multiplanar, multiecho imaging of the [facility] spine was performed without IV contrast. FINDINGS: For purposes of numbering on this exam, the L5-S1 disc space is assigned to axial image 27 of 30. Ali gnment of the lumbar spine is anatomic. Vertebral body heights are maintained. There is no suspicious marrow replacement. There are several hemangiomas within the lower thoracic and lumbar spines. There is no intracanalicular mass or fluid collection. The conus terminates at the L1-L2 level. A 3.3 cm T 2 hyperintense right renal lesion favors a cyst. Paravertebral soft tissues are unremarkable. The willie earance of the lumbar spine is similar to MRI of May 09, 2022. L1-2: The central canal and neural foramen are patent. There is mild facet arthrosis. L2-3: There is mild facet arthrosis. The central canal and neural foramen are patent. L3-4: There is moderate facet arthrosis with ligamentous hypertrophy. The central canal is patent. Mi ld bilateral neural foraminal stenosis is similar to previous MRI. L4-5: There is moderate facet arthrosis with ligamentous hypertrophy. There is no significant central canal stenosis. Mild left neural foraminal stenosis is similar to previous MRI. There is no right ne ural foraminal stenosis. L5-S1: Disc space narrowing is noted. There is moderate facet arthrosis. There is no significant neur al foraminal stenosis. IMPRESSION: 1. No acute process within the lumbar spine. No change since MRI of May 09, 2022. 2. Mild degenerative disc disease and moderate facet arthrosis within the lumbar spine. No central ca nal stenosis. Multilevel neural foraminal stenosis, as above. ACT 112: Negative or not required by law. Electronically signed by: Sha Fuentes M.D. 08/05/2024 12:45 PM
[2024-08-05 14:00] LABS: C Reactive Protein 0.68 mg/dl (0-0.5)
[2024-08-05] MEDS: CYANOCOBALAMIN (B-12) 500 MCG TABLET PO SCH (15:55)
[2024-08-05 22:56] LABS: Appearance Urine Clear (Clear); Bilirubin Urine Negative (Negative); Blood Urine Negative (Negative); Color Urine Yellow; Glucose Urine UA Trace (Negative); Ketones Urine Negative (Negative); Leukocyte Esterase Urine Negative (Negative); Nitrite Urine Negative (Negative); Protein Urine Negative (Negative); Specific Gravity Urine 1.011 (1.000-1.030); Urobilinogen Urine Negative (Negative)
[2024-08-06 04:31] VITALS: O2SAT 95
--- NOTE | 2024-08-06 05:34 | Electrocardiogram Report ---
Test Reason : Blood Pressure : */* mmHG Vent. Rate : 79 BPM Atrial Rate : 79 BPM P-R Int : 164 ms QRS Dur : 122 ms QT Int : 372 ms P-R-T Axes : 34 -15 28 degrees QTcB Int : 426 ms Normal sinus rhythm Right bundle branch block Abnormal ECG When compared with ECG of 21-Jul-2024 15:21, No significant change was found Confirmed by Alfredo Story ([id number]) on 08/06/2024 5:34:03 AM Referred By: REFERRED SELF Confirmed By: Alfredo Story
--- NOTE | 2024-08-06 06:05 | Hospitalist Progress Note ---
Date of Service August 05, 2024 Assessment & Plan (1) Left-sided weakness: Plan: patient presented this admission with expressive aphasia, head and face feeling numb, worse than usual ambulatory dysfunction, and left-sided weakness. symptoms are similar to the symptoms that brought him in to the hospital from 07/21-07/23/2024. During that hospital stay dx with TIA as MRI brain was negative. MRI cervical spine with C7 left-sided impingement. seen by neurology during that admission, dx with TIA. aspirin changed to Plavix for secondary prevention. atorvastatin increased to 80mg daily. interestingly he reports left-sided weakness since the TIA in early July. despite the above his MRI brain 08/04 is NEGATIVE for acute or subacute or old CVA. due to his weakness on exam today I repeated another MRI brain - again negative for acute or subacute CVA. I performed lumbar spine MRI due to left hip flexion weakness -- some mild DJD of l-spine but nothing to account for his leg symptoms. I checked CPK, lyme, sed rate, crp, b12 -- all wnl or negative although B12 level is low at 222 --> will replace. I can potentially explain the weak handgrip on left with the C7 disease on recent MRI c-spine but his confusion/memory issues and left leg weakness don't add up. I have asked Dr Kim from [facility] to re-eval Mr Frank tomorrow. Will check a B1 level tomorrow am to be complete. Again replace low B12. Cont asa/plavix x 3 weeks. Cont statin. Needs 14-day Holter as outpatient. (2) TIA (transient ischemic attack): Plan: dx with such during prior admission earlier this month dx with another TIA this weekend (see #1 above) but has persistent left-sided weakness which argues against TIA I have asked Dr Kim from neurology to see patient again for re-eval tomorrow (3) Leukocytosis: Plan: chronic sed rate today 41 CRP <1 previous pathology peripheral smear review questioned a diagnosis of CMML Flow cytometry in 2022 with increased NK cells and mild dyssynchronous granulocytic maturation which is nonspecific but could indicate underlying malignancy versus autoimmune disorder or medication side effect or viral infection will recheck CBC in am will obtain another peripheral smear will ensure he gets back to hematology/oncology post-discharge for this I cannot find a record of a prior heme/onc consultation or clinic visit (4) Degenerative disc disease, cervical: Plan: with resulting C7 nerve impingement on left as seen on cervical spine MRI earlier this month may explain left hand weakness (5) Hyperlipidemia: Plan: cont statin (6) Hypercalcemia: Plan: mild no total calcium level over 11 calcium today wnl previous intact PTH mildly elevated suggestive of primary hyperparathyroidism I do not believe it is contributing to current constellation of symptoms/signs (7) Memory deficits: Plan: MRI brain x 3 over this month negative for old or new stroke B12 level is low -- replace Check B1 level in am would benefit from neuropsych testing as outpatient (8) Type 2 diabetes mellitus: Plan: current a1c 5.9% has lost significant amount of weight with Ozempic BSGs controlled (9) Q fever: Plan: dx with such 01/2024 s/p doxycycline course exposure likely due to pigeons that he had in his garage I don't think this has contributed to any recent neurological issues most common issue with chronic Q fever - endocarditis (no evidence of such on echo earlier this month) (10) Obstructive sleep apnea: (11) H/O deep venous thrombosis: Plan updated extensively at bedside today Admission and Anticipated Discharge Date Admission Date: August 05, 2024 Subjective patient lying in bed comfortably during my visit at bedside pt & his report that "since his stroke" [early July - hospitalized for TIA - MRI Brain NEGATIVE] he has been confused with memory difficulty he reports weakness of his left arm and left leg since early July does endorse mild posterior neck pain and mild low back pain day to day at home but intermittent denies paresthesias of either leg or arm had Q fever January 2024 - treated with doxy - thought acquired 2nd to pigeons he is uncertain if he ever saw infectious diseases Review of Systems Review of Systems: gen - no fevers or chills; weight loss - attributed to Ozempic usage cv - no chest pain pulm - no dyspnea at rest GI - no abd pain Physical Exam Physical Exam: gen - NAD, tired eyes - PERRL neck - no JVD mouth - MMM heart - RRR, s1 s2 lungs - CTA b/l abd - soft NT ND BS+; no HSM ext - no edema, pulses 2+ b/l neuro - b/l shoulder extension impaired, about 4/5 b/l strength; handgrip b/l 4/5, slightly worse on left; bipeps flexion on left 4/5, on right 5/5; left hip flexion 4/5, left foot dorsiflexion 4/5; right hip flexion 5/5; right foot dorsiflexion 5/5; sensation intact to light touch b/l arms/legs; speech - low pitched, but fluent psych - ?mild confusion? Results & Data Results & Data Vital Signs (Past 12 Hours) Vital Signs Temp Pulse Pulse Resp BP BP Pulse Ox 08/05/24 11:14 36 C L 86 18 163/92 H 96 08/05/24 07:56 36.8 C 90 20 158/96 H 94 Laboratory Results Laboratory Results - last 24 hr 08/05/24 08/05/24 08/05/24 06:31 07:18 10:43 WBC 11.22 H RBC 5.63 Hgb 14.4 Hct 47.3 MCV 84.0 MCH 25.6 MCHC 30.4 L RDW Std Deviation 46.5 H RDW Coeff of Kartik 15.4 H Plt Count 262 MPV 10.2 Immature Gran % (Auto) 0.5 Neut % (Auto) 61.8 Lymph % (Auto) 25.3 Morton % (Auto) 10.3 Eos % (Auto) 1.7 Baso % (Auto) 0.4 Neut # (Auto) 6.92 H Lymph # (Auto) 2.84 Morton # (Auto) 1.16 H Eos # (Auto) 0.19 Baso # (Auto) 0.05 Immature Gran # (Auto) 0.06 ESR Sodium 140 Potassium 4.5 Chloride 107 Carbon Dioxide 28 Anion Gap 5 BUN 16 Creatinine 1.23 Est Cr Clr Drug Dosing 64.9 eGFR 60.47 BUN/Creatinine Ratio 13.0 Glucose 94 POC Glucose 102 H 100 H Calcium 10.1 Phosphorus 2.8 Magnesium 2.2 Albumin 3.8 08/05/24 08/05/24 13:14 15:43 WBC RBC Hgb Hct MCV MCH MCHC RDW Std Deviation RDW Coeff of Kartik Plt Count MPV Immature Gran % (Auto) Neut % (Auto) Lymph % (Auto) Morton % (Auto) Eos % (Auto) Baso % (Auto) Neut # (Auto) Lymph # (Auto) Morton # (Auto) Eos # (Auto) Baso # (Auto) Immature Gran # (Auto) ESR 41 H Sodium Potassium Chloride Carbon Dioxide Anion Gap BUN Creatinine Est Cr Clr Drug Dosing eGFR BUN/Creatinine Ratio Glucose POC Glucose 131 H Total Creatine Kinase 32 C-Reactive Protein 0.68 H Vitamin B12 222 Lyme Disease Screen Negative Diagnostic Findings Brain MRI 08/05/24 11:08 MRI OF THE BRAIN WITHOUT IV CONTRAST CLINICAL HISTORY: Left upper and lower extremity weakness COMPARISON STUDY: MRI of the brain dated 08/04/2024 TECHNIQUE: MRI of the brain was performed utilizing various T1 and T2-weighted sequences in the axial, sagittal, and coronal planes. IV contrast was not administered for this examination. The examination is degraded by motion artifact. FINDINGS: Brain parenchyma: There is age-related involutional change noting mild microangiopathic disease. There is no hemorrhage or mass effect. There is no restricted diffusion to suggest acute ischemia. [place]-white matter differentiation is preserved. No extra-axial fluid collection is seen. The cerebellar tonsils are normal in configuration. Ventricles, sulci, and cisterns: Prominent secondary to involutional change. Pituitary and sella: Unremarkable. Intracranial vasculature: Normal flow voids are maintained at the skull base. Orbits: The bony orbits are grossly intact. Orbital contents are normal in appearance noting bilateral ocular lens implants. Sinuses and mastoids: There is mild mucosal thickening within the ethmoid sinuses. The remaining paranasal sinuses and the metatarsals are clear. Calvarium: Unremarkable. Cervical cord: Partially visualized cervical spinal cord is normal in morphology and signal intensity. IMPRESSION: No acute intracranial abnormality. ACT 112: Negative or not required by law. Electronically signed by: Don Toledo M.D. 08/05/2024 12:21 PM Lumbar Spine MRI 08/05/24 11:08 MRI OF THE LUMBAR SPINE WITHOUT CONTRAST CLINICAL HISTORY: Left leg weakness. COMPARISON STUDY: Lumbar spine MRI May 09, 2022. TECHNIQUE: Utilizing a 1.5 Mary Jane magnet and dedicated coil, multiplanar, multiecho imaging of the lumbar spine was performed without IV contrast. FINDINGS: For purposes of numbering on this exam, the L5-S1 disc space is assigned to axial image 27 of 30. Alignment of the lumbar spine is anatomic. Vertebral body heights are maintained. There is no suspicious marrow replacement. There are several hemangiomas within the lower thoracic and lumbar spines. There is no intracanalicular mass or fluid collection. The conus terminates at the L1-L2 level. A 3.3 cm T2 hyperintense right renal lesion favors a cyst. Paravertebral soft tissues are unremarkable. The appearance of the lumbar spine is similar to MRI of May 09, 2022. L1-2: The central canal and neural foramen are patent. There is mild facet arthrosis. L2-3: There is mild facet arthrosis. The central canal and neural foramen are patent. L3-4: There is moderate facet arthrosis with ligamentous hypertrophy. The central canal is patent. Mild bilateral neural foraminal stenosis is similar to previous MRI. L4-5: There is moderate facet arthrosis with ligamentous hypertrophy. There is no significant central canal stenosis. Mild left neural foraminal stenosis is similar to previous MRI. There is no right neural foraminal stenosis. L5-S1: Disc space narrowing is noted. There is moderate facet arthrosis. There is no significant neural foraminal stenosis. IMPRESSION: 1. No acute process within the lumbar spine. No change since MRI of May 09, 2022. 2. Mild degenerative disc disease and moderate facet arthrosis within the lumbar spine. No central canal stenosis. Multilevel neural foraminal stenosis, as above. ACT 112: Negative or not required by law. Electronically signed by: Sha Fuentes M.D. 08/05/2024 12:45 PM PG Care Time/CCT Total # of Minutes Spent Total Time Spent with Patient: Total time spent is greater than 50% in coordination of care (as documented) at patient's floor/unit and/or counseling patient: Coding Level of Care Code 76214 SUB INP/OBS CARE 3/50MIN Diagnoses Left-sided weakness R53.1 TIA (transient ischemic attack) G45.9 Leukocytosis D72.829 Degenerative disc disease, cervical M50.30 Hyperlipidemia, unspecified hyperlipidemia type E78.5 Hyperlipidemia type: unspecified Hypercalcemia E83.52 Memory deficits R41.3 Type 2 diabetes mellitus E11.9 Q fever A78 Obstructive sleep apnea G47.33 H/O deep venous thrombosis Z86.718 (5) Hyperlipidemia Hyperlipidemia type: unspecified Qualified Code(s): E78.5 - Hyperlipidemia, unspecified
[2024-08-06 06:46] LABS: Basophils # (auto) 0.06 K/uL (0.00-0.20); Basophils % (auto) 0.6 %; Eosinophils # (auto) 0.29 K/uL (0.00-0.50); Eosinophils % (auto) 2.8 %; Hematocrit (blood only) 45.8 % (42.0-52.0); Hemoglobin 14.1 g/dl (14.0-18.0); Immature Granulocytes # (auto) 0.05 K/uL (0.01-0.20); Immature Granulocytes % (auto) 0.5 %; Lymphocytes # (auto) 2.42 K/uL (1.20-3.40); Mean Corpuscular Hgb Conc 30.8 g/dL (32.0-36.0); Mean Corpuscular Volume 84.3 fL (80.0-100.0); Mean Platelet Volume 10.5 fL (9.4-12.4); Monocytes # (auto) 1.19 K/uL (0.11-0.59); Monocytes % (auto) 11.3 %; Neutrophils # (auto) 6.51 K/uL (1.40-6.50); Neutrophils % (auto) 61.8 %; Platelet Count 252 K/uL (130-400); RDW Coefficient of Variation 15.5 % (11.5-14.5); RDW Standard Deviation 47.3 fL (36.4-46.3); Red Blood Count 5.43 M/uL (4.70-6.10); White Blood Count 10.52 K/ul (4.8-10.8)
[2024-08-06 07:10] LABS: Albumin Level 3.6 gm/dl (3.4-5.0); BUN Creatinine Ratio 15.2 (10-20); Calcium 9.9 mg/dl (8.6-10.3); Creatinine Clr Calc Pharmacy 71.3 ml/min; Magnesium 2.1 mg/dl (1.7-2.4); Phosphorus 3.1 mg/dl (2.5-4.9); Potassium 4.2 mmol/L (3.5-5.1)
[2024-08-06 07:35] LABS: Polychromasia 1+
[2024-08-06 07:51] VITALS: RESP 18
--- NOTE | 2024-08-06 08:01 | Neurology Progress Note ---
Date of Service August 06, 2024 Assessment & Plan (1) Left-sided weakness: (2) TIA (transient ischemic attack): (3) Cervical spinal stenosis: (4) Lower back pain: (5) Memory deficits: (6) Headache: (7) Depression: Plan This patient was admitted August 03 with transient speech issues was some increased left arm and leg weakness (no numbness/dysesthesias, or pain in the limbs). He did have some perioral dysesthesias. His symptoms were very brief lasting minutes and then resolved. Extensive testing has revealed no acute or subacute stroke. CT angiography of the head and neck was unremarkable with no vascular stenoses nomograms. Despite his current symptoms of left leg weakness he has no actual focal weakness on neurologic examination (some giveaway weakness without pathologic weakness). He does limp favoring that leg. I suspect the left lower extremity is more peripheral in origin. He does have a history of low back pain and lumbosacral radiculopathy in the past. I am not convinced this patient has had TIAs in the classic sense. His transient symptoms may be vascular/flow issues (versus other). Elevated blood pressure (such as today at 182/103) could give transient neurologic symptoms also In addition, he has a history of polyneuropathy in the past and his examination suggests a mild polyneuropathy, involving predominantly sensory fibers is present. The patient has cervical spinal stenosis of a very mild nature at C7. He has no radicular symptoms in the arms. He has no signs of myelopathy on examination. He has a nonspecific right-sided headache. Patient has increased depression which may be playing into his symptoms as well. This is despite 200 mg sertraline daily. Recommendations: 1. I could perform EMG and nerve conduction studies of the left arm and leg as an outpatient, to further evaluate the weakness 2. Continue dual antiplatelet therapy (81 mg aspirin +75 mg clopidogrel) for a total of 3 weeks then discontinue the aspirin and remain on clopidogrel alone. 3. Continue atorvastatin 80 mg daily. 4. Control blood pressure, aiming for a mean arterial pressure of 100. 5. I see no need for additional neurologic testing or treatment changes currently. 6. However, he may need an increase in antidepressant medication. He is at maximum dose of sertraline. We could add bupropion (and this could be done as an outpatient. 7. Follow-up in neurologycould do telehealth with [facility] in the next week or so. Overall, I spent a total of 90 minutes with this case including review of records, review of multiple MRI films, direct evaluation the patient at bedside, report generation, and discussion of the case with the patient and RN at bedside and Dr. Rivera including differential diagnosis and treatment options. Admission and Anticipated Discharge Date Admission Date: August 05, 2024 Subjective Patient is a 79-year-old who has a longstanding history of hypertension, type 2 diabetes, dyslipidemia, and anxiety/depression. Patient has a history of bilateral total hip and knee replacements (years ago) The patient was seen as an outpatient in neurology back in 2021 for polyneuro david and lumbosacral radiculopathy. He also had left trigeminal neuralgia symptoms which have resolved. In addition, the patient has been having memory issues for at least 1 year. They are staying about the same lately he feels. The patient believes that his depression has been worse over the last month. Prior to admission July 22, he was on 81 mg aspirin and simvastatin 40 mg daily For the last month, he has had a dull left-sided headache which waxes and wanes (and is off) helped with Tylenol I saw this patient in the hospital July 22 of this year. He was having some left-sided weakness and speech issues. On physical examination I was not convinced there was any actual pathologic weakness. At that time, MRI of the brain was unremarkable for acute stroke. He had mild generalized atrophy and old small vessel ischemic disease noted. MR angiography of the head was unremarkable and carotid ultrasound was unremarkable. MRI of the cervical spine showed some relatively mild spinal stenosis at C6-7 from a disc and bony changes. The cord was on impinged. I have reviewed the MRI of the brain and MRI of the cervical spine from that hospitalization, today. Echocardiogram was unremarkable. Overall, I could not entirely exclude his event being a brief TIA. He was discharged on 75 mg clopidogrel and atorvastatin 80 mg daily. Since discharge he claims his left lower extremity has been somewhat weak. He denies neck pain but has had some low back pain increasing in certain positions such as prolonged standing. His memory deficits have been about the same mostly short-term. He denies incontinence of urine speech or vision problems. He continues to have the headache as before. The patient was admitted on August 03 with some word finding difficulty and dysarthria. In addition, he had some left-sided weakness of the arm and leg, which was not appreciated in the ER but was appreciated later on during his hospital stay. The patient believes his left leg is still weak but does not believe his arm is weak and he has no speech issues. He denies dizziness or lightheadedness. He denies neck pain and low back pain currently. During this hospitalization MRI of the brain on August 04 was unremarkable and unchanged from July 22. A repeat MRI of the brain August 05 (because of increased left-sided weakness) was unremarkable as well. These are unchanged compared to previous and I have reviewed both of these films. Patient had an MRI of the lumbar spine which showed some minimal degenerative changes and no significant spinal stenosis. I reviewed these films B12 was 222 and CHEM profile was unremarkable. Liver profile and CBC were unremarkable as was urinalysis. Antibody titer was unremarkable. In May of this year TSH was 1.9 Results & Data Vital Signs (Past 12 Hours) Vital Signs Temp Pulse Pulse Resp BP BP Pulse Ox 08/06/24 07:30 36.4 C L 91 H 18 182/103 H 08/06/24 03:28 36.8 C 83 16 151/84 H 95 08/05/24 23:00 92 H 08/05/24 22:28 37.0 C 78 18 148/69 H 97 O2 Del Method 08/06/24 07:30 08/06/24 03:28 Room Air 08/05/24 23:00 08/05/24 22:28 Room Air Exam (Neuro) Physical Exam: The patient is awake, alert, and attentive. Speech is normal without any aphasia or dysarthria. Mentation and thought processes are intact, with full orientation and normal fund of knowledge. Mood seems down but affect is appropriate. Appearance and grooming are normal. Short and long-term memory are reasonable to conversation. Pupils are 4 mm bilaterally and reactive to light. Extraocular eye muscles are intact without nystagmus. Visual acuity and visual eagle seem normal grossly to confrontation. There are no deficits to sensation in the face in all 3 distributions of the fifth cranial nerve bilaterally. Corneal reflexes are positive bilaterally. Facial strength and symmetry was normal bilaterally. Hearing seems intact grossly to voice and finger rub bilaterally. Palate moves well without asymmetry. There is normal sternocleidomastoid and trapezius strength bilaterally. Tongue is midline with good strength bilaterally. Neck has a full range of motion without discomfort. Cervical, thoracic, and lumbar spine are nontender to palpation. Gait is narrow based, with good arm swing and he limps slightly favoring the left leg. Stance is reasonable with feet together and eyes open and turns are reasonable. With outstretched arms there is no drift. There are no resting, postural, or action tremors. There is no ataxia with finger to nose testing. There is good facility in the hands. No other abnormal involuntary movements are noted. Motor strength is 5/5 diffusely in the arms bilaterally including deltoids, biceps, triceps, brachioradialis, wrist flexors and extensors, video editing internship, and intrinsic hand muscles. Motor strength is 5/5 diffusely in the legs bilaterally including hip flexors, quadriceps, hamstrings, gastrocnemius, tibialis anterior, tibialis posterior, Peroneii and toe extensor muscles bilaterally. There was some giveaway weakness at times with the left lower extremity but with coaxing the patient I was convinced that he had 5/5 strength diffusely bilaterally and there was no actual pathologic weakness. The limbs have good tone without rigidity or spasticity. There is no atrophy noted in the muscles. Muscle bulk is normal, there is no tenderness to palpation, no myotonia to percussion, and no fasciculations seen. Sensory examination is intact to touch and pin throughout all 4 limbs diffusely. Reflexes are 2/4 in the triceps, and quadriceps tendons bilaterally. Biceps and brachioradialis tendon reflexes were 1/4 bilaterally and the left Achilles reflex is 1/4. The right Achilles reflex is absent. Toes are downgoing with plantar stimulation bilaterally. PG Care Time/CCT Total # of Minutes Spent Total Time Spent with Patient: Total time spent is greater than 50% in coordination of care (as documented) at patient's floor/unit and/or counseling patient: Coding Level of Care Code 84190 SUB INP/OBS CARE 3/50MIN Diagnoses Left-sided weakness R53.1 TIA (transient ischemic attack) G45.9 Cervical spinal stenosis M48.02 Lower back pain M54.50 Memory deficits R41.3 Headache R51.9 Headache chronicity pattern: acute headache Headache type: unspecified Intractability: not intractable Episode of recurrent major depressive disorder, unspecified depression episode severity F33.9 Depression Type: major depressive disorder Major depression recurrence: recurrent Active/Remission status: currently active Major depression episode severity: unspecified Time Spent (min) 90 (6) Headache Headache chronicity pattern: acute headache Headache type: unspecified Intractability: not intractable Qualified Code(s): R51.9 - Headache, unspecified (7) Depression Depression Type: major depressive disorder Major depression recurrence: recurrent Active/Remission status: currently active Major depression episode severity: unspecified Qualified Code(s): F33.9 - Major depressive disorder, recurrent, unspecified
[2024-08-06] MEDS: METOPROLOL TARTRATE 25 MG TAB PO SCH (08:31)
[2024-08-06 11:39] VITALS: TEMP 98.1
--- NOTE | 2024-08-06 11:51 | Discharge Summary ---
Discharge Summary Date of Service August 06, 2024 Principal Dx & Hospital Course #1 = Principal Diagnosis (1) Left-sided weakness: patient presented this admission with expressive aphasia, head and face feeling numb, worse than usual ambulatory dysfunction, and left-sided weakness. symptoms are similar to the symptoms that brought him in to the hospital from 07/21-07/23/2024. During that hospital stay dx with TIA as MRI brain was negative. MRI cervical spine with C7 left-sided impingement. seen by neurology during that admission, dx with TIA. aspirin changed to Plavix for secondary prevention. atorvastatin increased to 80mg daily. interestingly he reports left-sided weakness since the TIA in early July. despite the above his MRI brain 08/04 is NEGATIVE for acute or subacute or old CVA. due to his weakness on exam today I repeated another MRI brain - again negative for acute or subacute CVA. I performed lumbar spine MRI due to left hip flexion weakness -- some mild DJD of l-spine but nothing to account for his leg symptoms. I checked CPK, lyme, sed rate, crp, b12 -- all wnl or negative although B12 level is low at 222 --> will replace. I can potentially explain the weak handgrip on left with the C7 disease on recent MRI c-spine but his confusion/memory issues and left leg weakness don't add up. I have asked Dr Kim from [facility] neuro to re-eval Mr Frank tomorrow. Will check a B1 level tomorrow am to be complete. Again replace low B12. Cont asa/plavix x 3 weeks. Cont statin. Needs 14-day Holter as outpatient. (2) TIA (transient ischemic attack): dx with such during prior admission earlier this month dx with another TIA this weekend (see #1 above) but has persistent left-sided weakness which argues against TIA I have asked Dr Kim from neurology to see patient again for re-eval tomorrow (3) Leukocytosis: chronic sed rate today 41 CRP <1 previous pathology peripheral smear review questioned a diagnosis of CMML Flow cytometry in 2022 with increased NK cells and mild dyssynchronous granulocytic maturation which is nonspecific but could indicate underlying malignancy versus autoimmune disorder or medication side effect or viral infection will recheck CBC in am will obtain another peripheral smear will ensure he gets back to hematology/oncology post-discharge for this I cannot find a record of a prior heme/onc consultation or clinic visit (4) Degenerative disc disease, cervical: with resulting C7 nerve impingement on left as seen on cervical spine MRI earlier this month may explain left hand weakness (5) Hyperlipidemia: cont statin (6) Hypercalcemia: mild no total calcium level over 11 calcium today wnl previous intact PTH mildly elevated suggestive of primary hyperparathyroidism I do not believe it is contributing to current constellation of symptoms/signs (7) Memory deficits: MRI brain x 3 over this month negative for old or new stroke B12 level is low -- replace Check B1 level in am would benefit from neuropsych testing as outpatient (8) Type 2 diabetes mellitus: current a1c 5.9% has lost significant amount of weight with Ozempic BSGs controlled (9) Q fever: dx with such 01/2024 s/p doxycycline course exposure likely due to pigeons that he had in his garage I don't think this has contributed to any recent neurological issues most common issue with chronic Q fever - endocarditis (no evidence of such on echo earlier this month) (10) Obstructive sleep apnea: (11) H/O deep venous thrombosis: Plan updated extensively at bedside today Admission HPI Per Admitting Provider The patient is a 79-year-old male with a past medical history including TIA, hypercalcemia, memory deficits, cervical spinal stenosis, diabetes mellitus type 2, anxiety and depression, dyslipidemia, hypertension, restrictive cardiomyopathy, GERD, obesity hypoventilation syndrome, BPH, RAMAN, neuropathy and lumbar radiculopathy. He was most recently admitted continently from 07/21- 07/23/2024 for strokelike symptoms. During that admission, he had a CT scan of the head, carotid Dopplers, MRA of head, all of which were negative. He presents to the emergency department with approximately 3 minutes of difficulty with speech and ambulatory dysfunction, further persistence numbness in face, which since have resolved. In the emergency department this evening, patient had a CT scan of head which showed no acute findings, CTA head and neck which showed no acute findings, but did show chronic small vessel disease. Discharge Exam gen - NAD, tired eyes - PERRL neck - no JVD mouth - MMM heart - RRR, s1 s2 lungs - CTA b/l abd - soft NT ND BS+; no HSM ext - no edema, pulses 2+ b/l neuro - b/l shoulder extension impaired, about 4/5 b/l strength; handgrip b/l 4/5, slightly worse on left; bipeps flexion on left 4/5, on right 5/5; left hip flexion 4/5, left foot dorsiflexion 4/5; right hip flexion 5/5; right foot dorsiflexion 5/5; sensation intact to light touch b/l arms/legs; speech - low pitched, but fluent psych - ?mild confusion? Discharge Plan Discharge Items Patient Disposition: Home - Self-Care Reason For Visit: LEFT-SIDED WEAKNESS Discharge Diagnosis: 1. difficulty speaking, facial numbness - resolved; MRI Brain NEGATIVE x 2 for stroke; probably a "TIA" event 2. left arm and left leg weakness - likely due to peripheral neuropathy; neurology follow-up needed 3. vitamin B12 deficiency 4. type 2 diabetes 5. high blood pressure 6. cervical spine disc disease particularly at C7 7. chronically elevated white blood cell count - etiology uncertain; hematology follow-up needed 8. recent confusion/memory loss - exact etiology uncertain - additional outpatient work-up needed 9. mildly elevated calcium level - likely due to "hyperparathyroidism" - this can be monitored by your family doctor Activity: As commented below Activity Comment: plan to take it easy for 4-5 days then gradually resume normal activities Exercise/Sports: Gradually increase as tolerated Driving/Machine Use: No driving this week; may resume Aug 11 Non-emergency contact: Primary Care Provider and Neurologist Call non-emergency contact if: you have any medication questions and your symptoms worsen Follow-up/Referrals: Prabhjot Kim MD [Physician] - (Neurology will call you to schedule a follow-up appointment ) Melissa Frazier MD [Primary Care Provider] - 08/12/24 4:00 pm (Hospital follow up scheduled August 12 at 4:00 with MATILDE Palacios ) Ashely Watt MD [Physician] - (we will make a referral for you to the [facility] for the elevated white blood cell count ) Diet: Carb Consistent or DM2 and Heart Healthy Addtl Attending Provider Instructions: Mr Frank, You were hospitalized due to having a hard time speaking as well as having numb ness of the face. You also mentioned that you have been feeling weak in the left arm & leg for a few weeks. Two MRI brain scans did NOT show an old or new stroke. Thus, you have NOT had a stroke. (a 3rd MRI brain done a few weeks ago was also negative for stroke) It is possible that your temporary difficulty with speaking and the numbness of the face was a TIA event (see handout). A TIA - also known as transient ischemic attack - is a neurological symptom or collection of symptoms that come on abruptly and then resolve, typically within 24 hours. A TIA is NOT a stroke. However, a TIA is a risk factor for future stroke. In addition to the above we investigated further your complaints of left arm and left leg weakness. Lumbar spine MRI showed arthritis/degeneration but nothing of severe degree. During the prior admission you had an MRI of your neck and this showed degeneration/arthritis particularly at C7. Dr [facility] you in consult and believes that the left arm and left leg symptoms/weakness are due to peripheral nerve problems. There are many causes of peripheral neuropathy (see handout). Dr Kim wishes to see you back in neurology clinic and they may perform an EMG study that looks at the nerve endings in your arms/legs more thoroughly. Finally, we found that your vitamin B12 level was low. B12 deficiency can cause nerve problems, depression, fatigue, etc. Recommendations - 1. take vkif-tvm-vpzrarh aspirin 81mg once daily for 20 days then STOP; take with food 2. take noeh-pzz-vpbsklb vitamin B12 1000mcg (1mg) once daily x 6 months 3. take a vitamin B1 supplement (thiamine) 200mg twice daily x 30 days then stop; I sent this to the pharmacy for you 4. for blood pressure take metoprolol succinate 25mg once daily; you can start this TONIGHT at bedtime; I sent this to the pharmacy for you 5. if you have a future "spell" of difficulty speaking, facial numbness, or other neurological symptoms that come on abruptly I would recommend you check the following (while having the symptoms) -- * your blood sugar on your finger (to see if you have low sugar) * your blood pressure (to see if your blood pressure is high or low) If your neurological symptoms persist PLEASE SEEK MEDICAL ATTENTION. 6. see neurology in 3-4 weeks with Hung Espinoza for EMG study 7. see hematology/oncology for your chronically elevated WBC count; referral will be made for you 8. ask your family doctor to follow the mildly elevated calcium levels. You may have a condition called hyperparathyroidism. If you have this condition it is very mild and early. See handout. Observation is likely all you need for now for the calcium. Follow-up - see separate section Return to [facility] if - * you have concerns for recurrent TIA or having a stroke * you have dizziness or lightheadedness * you have concerns for low blood sugar (less than 70) * you have chest pain or shortness of breath * any other concerns It was our pleasure to care for you! -Dr Rivera Pending Studies at Discharge: Yes Studies:: vitamin B1 level (thiamine) Stand-Alone Forms: My [facility] L[facility] a Helping Hand, Smoking Cessation, Medications to Prevent Stroke Medications and DC Order Prescriptions: New aspirin 81 mg Tablet,Delayed Release (Dr/Ec) 81 mg PO QAM Qty: 20 0RF Rx Instructions: take for 20 days then STOP. Purchase tkmj-nwx-ggrzhcy. metoprolol succinate 25 mg tablet extended release 24 hr 25 mg PO DAILY Qty: 30 1RF Rx Instructions: for high blood pressure cyanocobalamin (vitamin B-12) 1,000 mcg tablet 1,000 mcg PO DAILY Qty: 90 1RF Rx Instructions: take for 6 months. Purchase omnb-rge-ggbqaem. thiamine HCl (vitamin B1) 100 mg tablet 200 mg PO BID 30 Days Qty: 120 0RF Continued (DME) FreeStyle Shlomo 2 [place] Misc See Rx Instructions .Route Qty: 1 0RF Rx Instructions: As directed to check blood sugar (scan at least every 8 hours) (DME) pen needle, diabetic [BD Ultra-Fine Short Pen Needle] 31 gauge x 5/16" needle See Rx Instructions .Route Qty: 200 3RF Rx Instructions: Use with insulin pen twice daily Dx:E11.9 famotidine 40 mg tablet 40 mg PO PM Qty: 90 1RF (DME) FreeStyle Shlomo 2 Sensor Kit See Rx Instructions .ROUTE .COMPLEX Qty: 2 5RF Dose Instruction: DIRECTED TO CHECK BLOOD SUGARS CONTINUOUSLY (REPLACE EVERY 14 DAYS) Rx Instructions: DIRECTED TO CHECK BLOOD SUGARS CONTINUOUSLY (REPLACE EVERY 14 DAYS) Ozempic 2 mg/dose (8 mg/3 mL) pen injector 2 mg subcut WK Qty: 3 5RF Rx Instructions: Monday (DME) Oxygen Home Liters Per Minute See Rx Instructions .Route Qty: 1 0RF Rx Instructions: As directed (DME) Shower Chair Misc See Rx Instructions .Route Qty: 1 0RF Rx Instructions: Shower transfer bench-G62.9 sertraline 100 mg tablet 200 mg PO DAILY 90 Days Qty: 180 1RF Jardiance 10 mg tablet 10 mg PO QAM Qty: 30 0RF diclofenac sodium [Voltaren Arthritis Pain] 1 % gel 4 g topical QID PRN (Reason: Pain) ondansetron HCl 4 mg tablet 4 mg PO Q6H PRN (Reason: NAUSEA/VOMITING) Qty: 10 0RF clopidogrel 75 mg Tablet 75 mg PO QAM Qty: 30 0RF torsemide 100 mg tablet 50 mg PO QAM PRN (Reason: Weight gain or leg swelling) Qty: 15 0RF atorvastatin 80 mg tablet 80 mg PO QAM cholecalciferol (vitamin D3) 50 mcg (2,000 unit) capsule 2,000 unit PO QAM Discharge Orders: Discharge Order (Routine); Ordered 08/06/24 Ordered By: Damian Lombardo/Other Patient Handouts: Hyperparathyroidism Primary, What Is a TIA?, What Is Peripheral Neuropathy Admission Data Admit Date/Time: 08/05/24 17:54 Attending Provider: Damian Rivera Admit Provider: Damian Rivera Primary Care Provider: Melissa Frazier Other Providers: Joaquim Alvares; Primitivo Rodas Hospital Stay Data Consultations 08/03/24 18:33 ED Decision to Admit Stat 08/03/24 22:09 Consult Neurology Routine 08/06/24 11:19 Consult [facility] surgery tech Routine Diagnostic Imagining Performed 08/03/24 17:31 CT angio head w con Stat CT angio neck with con Stat CT head/brain wo con Stat 08/04/24 14:18 MR brain wo con Urgent 08/05/24 11:08 MR brain wo con Urgent MR lumbar spine wo con Urgent Pending Results Patient Have Any Pending Studies at Discharge: Yes Discharge Instructions Given to Patient (Per Discharging Provider) Mr Frank, You were hospitalized due to having a hard time speaking as well as having numbness of the face. You also mentioned that you have been feeling weak in the left arm & leg for a few weeks. Two MRI brain scans did NOT show an old or new stroke. Thus, you have NOT had a stroke. (a 3rd MRI brain done a few weeks ago was also negative for stroke) It is possible that your temporary difficulty with speaking and the numbness of the face was a TIA event (see handout). A TIA - also known as transient ischemic attack - is a neurological symptom or collection of symptoms that come on abruptly and then resolve, typically within 24 hours. A TIA is NOT a stroke. However, a TIA is a risk factor for future stroke. In addition to the above we investigated further your complaints of left arm and left leg weakness. Lumbar spine MRI showed arthritis/degeneration but nothing of severe degree. During the prior admission you had an MRI of your neck and this showed degeneration/arthritis particularly at C7. Dr Kim from [facility] saw you in consult and believes that the left arm and left leg symptoms/weakness are due to peripheral nerve problems. There are many causes of peripheral neuropathy (see handout). Dr Kim wishes to see you back in neurology clinic and they may perform an EMG study that looks at the nerve endings in your arms/legs more thoroughly. Finally, we found that your vitamin B12 level was low. B12 deficiency can cause nerve problems, depression, fatigue, etc. Recommendations - 1. take yzek-qfj-hjsasvh aspirin 81mg once daily for 20 days then STOP; take with food 2. take mekl-wnw-ozqtbvn vitamin B12 1000mcg (1mg) once daily x 6 months 3. take a vitamin B1 supplement (thiamine) 200mg twice daily x 30 days then stop; I sent this to the pharmacy for you 4. for blood pressure take metoprolol succinate 25mg once daily; you can start this TONIGHT at bedtime; I sent this to the pharmacy for you 5. if you have a future "spell" of difficulty speaking, facial numbness, or o ther neurological symptoms that come on abruptly I would recommend you check the following (while having the symptoms) -- * your blood sugar on your finger (to see if you have low sugar) * your blood pressure (to see if your blood pressure is high or low) If your neurological symptoms persist PLEASE SEEK MEDICAL ATTENTION. 6. see neurology in 3-4 weeks with [facility] Espinoza for EMG study 7. see hematology/oncology for your chronically elevated WBC count; referral will be made for you 8. ask your family doctor to follow the mildly elevated calcium levels. You may have a condition called hyperparathyroidism. If you have this condition it is very mild and early. See handout. Observation is likely all you need for now for the calcium. Follow-up - see separate section Return to [facility] if - * you have concerns for recurrent TIA or having a stroke * you have dizziness or lightheadedness * you have concerns for low blood sugar (less than 70) * you have chest pain or shortness of breath * any other concerns It was our pleasure to care for you! -Dr Rivera Coding Diagnoses Left-sided weakness R53.1 TIA (transient ischemic attack) G45.9 Leukocytosis D72.829 Degenerative disc disease, cervical M50.30 Hyperlipidemia, unspecified hyperlipidemia type E78.5 Hyperlipidemia type: unspecified Hypercalcemia E83.52 Memory deficits R41.3 Type 2 diabetes mellitus E11.9 Q fever A78 Obstructive sleep apnea G47.33 H/O deep venous thrombosis Z86.718
[2024-08-06 12:12] VITALS: BP 148/69; PULSE 75
== END 2024-08-06 12:48 | disposition home or self-care (01) | DRG 69 ==
LOC: ED 17:08 → 2S 17:08 → SUATTDRO 20:13 → 2S 22:16

== ENCOUNTER 2024-09-10 16:20 | Observation (INO) ==
--- NOTE | 2024-09-10 16:37 | ED Triage Note ---
Date of Service September 10, 2024 Provider in Triage Author: Gian Graham History of Present Illness This patient was briefly evaluated while in triage. An abbreviated physical exam was performed. This patient is a 79-year-old Male who presents to the ED for evaluation of left leg/knee pain. He fell Monday trying to help his get up after she had fallen. He was seen here Monday and referred to [facility]. He was seen by them today and referred back here for short term rehab placement because he is unable to get around. Physical Exam GENERAL: Non-toxic and in no acute distress. NEURO: Alert and oriented. No obvious neurological deficits on quick neuro exam. MUSCULOSKELETAL: Tenderness over the anterior left knee. Initial orders for labs and / or imaging were placed and patient was placed in the waiting area until a bed is available. Please see further documentation for the full ED course. MDM / Impression Impression Impression: Ambulatory dysfunction, Weakness, Contusion of knee Impression: Contusion of knee Qualifiers: Encounter type: initial encounter Laterality: unspecified laterality Qualified Code(s): S80.00XA - Contusion of unspecified knee, initial encounter
[2024-09-10 17:16] LABS: Alanine Aminotransferase 16 U/L (7-52); Albumin Globulin Ratio 1.4 (0.9-2); Albumin Level 4.2 gm/dl (3.4-5.0); Alkaline Phosphatase 78 U/L (34-104); Anion Gap 6 (3-11); Aspartate Aminotransferase 17 U/L (13-39); BUN Creatinine Ratio 11.5 (10-20); Bilirubin,Total 0.6 mg/dl (0.2-1.0); Blood Urea Nitrogen 13 mg/dl (6-23); Calcium 10.2 mg/dl (8.6-10.3); Carbon Dioxide 24 mmol/L (21-32); Chloride 106 mmol/L (98-107); Glucose 120 mg/dl (70-99(Fasting)); Potassium 4.3 mmol/L (3.5-5.1); Sodium 136 mmol/L (136-145); Total Protein 7.2 gm/dl (6.0-8.3)
[2024-09-10 17:47] LABS: Basophils # (auto) 0.05 K/uL (0.00-0.20); Basophils % (auto) 0.4 %; Eosinophils # (auto) 0.26 K/uL (0.00-0.50); Eosinophils % (auto) 2.3 %; Hematocrit (blood only) 50.3 % (42.0-52.0); Hemoglobin 15.5 g/dl (14.0-18.0); Immature Granulocytes # (auto) 0.05 K/uL (0.01-0.20); Immature Granulocytes % (auto) 0.4 %; Lymphocytes # (auto) 1.92 K/uL (1.20-3.40); Lymphocytes % (auto) 16.7 %; Mean Corpuscular Hemoglobin 26.1 pg (25.0-34.0); Mean Corpuscular Hgb Conc 30.8 g/dL (32.0-36.0); Mean Corpuscular Volume 84.8 fL (80.0-100.0); Monocytes # (auto) 0.88 K/uL (0.11-0.59); Monocytes % (auto) 7.6 %; Neutrophils # (auto) 8.37 K/uL (1.40-6.50); Neutrophils % (auto) 72.6 %; Platelet Count 226 K/uL (130-400); RDW Coefficient of Variation 16.4 % (11.5-14.5); RDW Standard Deviation 49.9 fL (36.4-46.3); Red Blood Count 5.93 M/uL (4.70-6.10); White Blood Count 11.53 K/ul (4.8-10.8)
--- NOTE | 2024-09-10 18:26 | Emergency Department Note ---
Impression & Plan Ambulatory dysfunction, Weakness, Contusion of knee ED Provider Note NAME: JORDAN VILLANUEVA AGE: 79 SEX: M : 1945 ARRIVES VIA: Walk-In INFORMANT: Patient ED PROVIDER(S): Jr Patterson DO CHIEF COMPLAINT: Unable to ambulate HPI: Patient is a 79-year-old male with a past medical history of his CVA, diabetes, anxiety, hypertension and neuropathy who presents to the ER from the orthopedics office. Patient notes that on Monday his fell and he was assisting her to get up. He has been unsteady on his feet for several months after his stroke. He got her up and in the process he fell and hurt his left knee. Since Monday his walk and ability to get around has been deteriorating. He is unable to get around anymore. He was over in orthopedics and they referred him back in here following evaluation for admission. Patient denies any new headache or change in vision. No chest pain or shortness of breath. No nausea, vomiting, or diarrhea. No dysuria, urgency, or frequency. ADDITIONAL HISTORY OBTAINED: Per HPI Chronic Medical/Social Conditions Affecting Care: Per HPI PAST MEDICAL HISTORY:See Below PAST SURGICAL HISTORY:See Below FAMILY HISTORY:See Below SOCIAL HISTORY:See Below HOME MEDICATIONS:See Below ALLERGIES:See Below VITALS:See Below PHYSICAL EXAMINATION: GENERAL: Sitting up in bed, alert, well appearing, well nourished, no distress, non-toxic EYE EXAM: normal conjunctiva. PERRL and EOM's grossly intact. OROPHARYNX: no exudate, no erythema, lips, buccal mucosa, and tongue normal and mucous membranes are moist NECK: supple, no nuchal rigidity, no adenopathy, non-tender LUNGS: Clear to auscultation. Normal chest wall mechanics HEART: no murmurs, S1 normal and S2 normal ABDOMEN: abdomen soft, non-tender, normo-active bowel sounds, no masses, no rebound or guarding. BACK: Back is symmetrical on inspection and there is no deformity, no midline tenderness, no CVA tenderness. SKIN: no rashes and no bruising UPPER EXTREMITIES: upper extremities are grossly normal. LOWER EXTREMITIES: Flexion-extension right hip knee and ankle intact. No pain with movement of the left hip. Pain with flexion of the left knee and swelling. No pain with movement of the left ankle. NEURO EXAM: Normal sensorium, cranial nerves II-XII grossly intact, normal speech, no gross weakness of arms, no gross weakness of legs. No drift. Finger to nose intact. Gross sensation intact. MEDICAL DECISION MAKING: Patient is a 79-year-old male who presents ER for the above-stated complaint. IV was established and blood work was obtained. Labs show leukocytosis of 1.5 thousand. No significant anemia. BMP along LFTs bilirubin was unremarkable. Glucose was mildly elevated. He has limited range of motion of his left knee. External records were reviewed from Juvenal Billings at [facility] who notes that they referred him over here after evaluation in orthopedics clinic for admission and rehab following deconditioning and any injury. X-rays were reviewed from several days ago and showed no acute fracture of the left knee. Patient and were updated at bedside. Patient was discussed with the hospitalist for further evaluation and management. Consults/Care Managements Discussions: Per [facility] Triage Nursing notes reviewed. Limited review of prior medical records performed Vital Signs: reviewed and remarkable for no significant abnormalities Differential diagnosis: Infection, dehydration, metabolic abnormality, hypo/hyperglycemia, electrolyte disturbance, anemia, hypoxia, cardiac sources, intracerebral event, toxicologic, neurologic, as well as other pathologies. ER treatment provided: See below Diagnostics interpreted by me include EKG and cardiac monitoring as listed below: -Cardiac Monitoring: An order was placed for continuous cardiac monitoring. The monitor shows a rate of 90 with sinus rhythm. -ECG: none -Laboratory studies:Interpreted by me as stated above in MDM and shown below. Imaging studies: Xrays: As interpreted by me:none CTs show: none Procedures:none Critical Care: None Past Med/Surg History Problem List (Updated 09/10/24 @ 20:06 by Jr Patterson DO) Contusion of knee (Acute) Weakness (Acute) Ambulatory dysfunction (Acute) MCL sprain of left knee (Acute) Fall at home (Acute) Primary hyperparathyroidism H/O deep venous thrombosis 5+ yrs ago s/p fall Degenerative disc disease, cervical Left-sided weakness Hyperlipidemia TIA (transient ischemic attack) (Acute) Hypercalcemia Memory deficits Cervical spinal stenosis History of incision and drainage (06/04/24) Left Shoulder Abscess Incision and Drainage(Left) - Parminder Trotter DO Type 2 diabetes mellitus Anxiety and depression Atherogenic dyslipidemia Q fever Weakness (Acute) Sepsis (Acute) Hypertension Leukocytosis Shoulder pain, right Testicular nodule Restrictive cardiomyopathy GERD (gastroesophageal reflux disease) Complete rotator cuff tear of left shoulder (01/08/14) Obesity hypoventilation syndrome Chronic diastolic heart failure BPH (benign prostatic hyperplasia) Depression Obstructive sleep apnea Morbid obesity Constipation Trigeminal neuralgia of left side of face Lower back pain Neuropathy Lumbar radiculopathy Medical History Encounter for pre-operative examination Restrictive lung disease secondary to obesity CKD (chronic kidney disease) stage 3, GFR 30-59 ml/min History of septic arthritis History of pressure ulcer rt ankle stage 2 Right knee pain Hypoxia Degenerative disc disease Osteoarthritis BPH (benign prostatic hyperplasia) Hypertension Chronic diastolic heart failure, NYHA class 3 Nonobstructive atherosclerosis of coronary artery Pulmonary emphysema GERD (gastroesophageal reflux disease) Sleep apnea BIPAP Restrictive cardiomyopathy Surgical History History of open reduction and internal fixation (ORIF) procedure LEFT WRIST (HARDWARE REMOVED) 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) History of esophagogastroduodenoscopy (EGD) History of herniorrhaphy multiple History of tooth extraction History of cataract surgery RT/LEFT Difficult intubation "Elective" glidescope noted on 08/2018 [facility] record Status post total hip replacement, left History of colonoscopy History of arthroscopy RIGHT SHOULDER Hx of transurethral resection of prostate History of total knee replacement RIGHT/LEFT History of cardiac cath MULTIPLE (NO STENTS PLACED) MOST RECENT= 2018 S/P cholecystectomy Family History Mother , age 92 of a stroke Stroke Alzheimer disease Father , age 65 of a tree falling on him Accident, Onset Age: 65 Was in his yard cutting trees and a tree trunk fell and killed him Sister Breast cancer Daughter Brain tumor Denies family history of Ovarian cancer Prostate cancer Myocardial infarction Colorectal cancer Social History Smoking Status: Former smoker Tobacco Type: Cigarettes Age Started Using Tobacco: 18; Age Quit Using Tobacco: 30; packs per day: 1; Cigarettes Per Day: 1-2 ppd; Second Hand Exposure: No; Do You Dip or Chew Tobacco: No; Hx Alcohol Use: No Hx Substance Use: No Preferred Language: Tristanian Communication Ability: Effective Visual Impairment: No Limitations Hearing Ability: Normal Inspector Plug Seam Required: No Beliefs That Will Affect Care: None marital status: Current Living Situation: Spouse Current Living Situation Comment: lives at home with current occupational status: retired 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[employer], 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, 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 How many Children do You have: 2 Feels Safe at Home: Yes Childhood Exposure to Second-Hand Smoke: No Diet: regular Diet Comment: regular Dental Care, Regularly: Yes Physical Activity Frequency: Does not Exercise Seatbelt Use: sometimes Sunscreen Use: No Assistive Devices: Cane and Walker Allergies Allergies Allergy/AdvReac Type Severity Reaction Status Date / Time adhesive tape Allergy Mild Redness of Verified 09/02/24 10:09 Skin Iodinated Contrast Media AdvReac Intermediate Gastrointestinal Verified 09/02/24 10:09 Upset iodine AdvReac Unknown "iodine Verified 09/02/24 10:09 solution caused unknown" Home Meds Home Medications Medication Instructions Recorded Confirmed diclofenac sodium 1 % topical gel 4 g topical QID PRN Pain 01/20/24 09/10/24 (Voltaren Arthritis Pain) atorvastatin 80 mg tablet 80 mg PO QAM 08/03/24 09/10/24 cholecalciferol (vitamin D3) 50 2,000 unit PO QAM 08/03/24 09/10/24 mcg (2,000 unit) capsule cyanocobalamin (vitamin B-12) 1,000 mcg PO QAM 09/10/24 09/10/24 1,000 mcg tablet metoprolol succinate 25 mg 25 mg PO QAM 09/10/24 09/10/24 tablet,extended release 24 hr pantoprazole 40 mg tablet,delayed 40 mg PO QAM 09/10/24 09/10/24 release sertraline 100 mg tablet 200 mg PO QAM 09/10/24 09/10/24 Previous Rx's Medication Instructions Recorded empagliflozin 10 mg tablet 10 mg PO QAM #30 tabs 01/22/22 (Jardiance) Oxygen Home #1 ea 05/31/22 pen needle, diabetic 31 gauge x #200 ea 06/13/2202/28" (BD Ultra-Fine Short Pen Needle) Shower Chair #1 ea 02/15/23 ondansetron HCl 4 mg tablet 4 mg PO Q6H PRN NAUSEA/VOMITING 01/24/24 #10 tabs famotidine 40 mg tablet 40 mg PO PM #90 tabs 03/20/24 flash glucose sensor (FreeStyle #2 KITS 03/25/24 Shlomo 2 Sensor kit) semaglutide 2 mg/dose (8 mg/3 mL) 2 mg (0.75 mL) subcut WK #3 mL 04/10/24 subcutaneous pen injector (Ozempic) torsemide 100 mg tablet 50 mg (1/2 x 100 mg) PO QAM PRN 07/23/24 Weight gain or leg swelling #15 tabs bupropion HCl 100 mg tablet,12 hr 100 mg PO BID #30 ea 08/12/24 sustained-release (Wellbutrin SR) clopidogrel 75 mg tablet 75 mg PO QAM #30 tabs 09/04/24 flash glucose scanning reader #1 ea 09/04/24 (FreeStyle Shlomo 2 [place]) hydrocodone 5 mg-acetaminophen 325 1 tab PO Q6H PRN pain #10 tabs 09/08/24 mg tablet Results & Data (ED) Vital Signs Vital Signs - 24 hr 09/10/24 16:34 09/10/24 19:16 09/10/24 19:26 Temperature 37 C Temperature Source Temporal Artery Scan Pulse Rate 85 79 Pulse Rate [Apical] 79 Respiratory Rate 18 17 Respiratory Effort / Characteristics Non-Labored Non-Labored Respiratory Depth Normal Normal Respiratory Pattern Regular Blood Pressure 122/75 Blood Pressure [Right Arm] 118/89 Blood Pressure Mean 90 Blood Pressure Mean [Right Arm] 98 Pulse Oximetry 96 95 Oxygen Delivery Method Room Air Room Air Sepsis Recent Fever Within 48 Hours No Sepsis New/Unexplained Change in Mental Status No Sepsis Action Taken by Nursing No Action Required Laboratory Data 09/10/24 16:45 09/10/24 16:45 Lab Results 09/10/24 Range/Units 16:45 WBC 11.53 H (4.8-10.8) K/ul RBC 5.93 (4.70-6.10) M/uL Hgb 15.5 (14.0-18.0) g/dl Hct 50.3 (42.0-52.0) % MCV 84.8 (80.0-100.0) fL MCH 26.1 (25.0-34.0) pg MCHC 30.8 L (32.0-36.0) g/dL RDW Std Deviation 49.9 H (36.4-46.3) fL RDW Coeff of Kartik 16.4 H (11.5-14.5) % Plt Count 226 (130-400) K/uL MPV 11.0 (9.4-12.4) fL Immature Gran % (Auto) 0.4 % Neut % (Auto) 72.6 % Lymph % (Auto) 16.7 % [place] % (Auto) 7.6 % Eos % (Auto) 2.3 % Baso % (Auto) 0.4 % Neut # (Auto) 8.37 H (1.40-6.50) K/uL Lymph # (Auto) 1.92 (1.20-3.40) K/uL Scre[place] # (Auto) 0.88 H (0.11-0.59) K/uL Eos # (Auto) 0.26 (0.00-0.50) K/uL Baso # (Auto) 0.05 (0.00-0.20) K/uL Immature Gran # (Auto) 0.05 (0.01-0.20) K/uL Sodium 136 (136-145) mmol/L Potassium 4.3 (3.5-5.1) mmol/L Chloride 106 (98-107) mmol/L Carbon Dioxide 24 (21-32) mmol/L Anion Gap 6 (3-11) BUN 13 (6-23) mg/dl Creatinine 1.13 (0.6-1.4) mg/dl Est Cr Clr Drug Dosing Not Reportable eGFR 66.94 BUN/Creatinine Ratio 11.5 (10-20) Glucose 120 H (70-99(Fasting)) mg/dl Calcium 10.2 (8.6-10.3) mg/dl Total Bilirubin 0.6 (0.2-1.0) mg/dl AST 17 (13-39) U/L ALT 16 (7-52) U/L Alkaline Phosphatase 78 (34-104) U/L Total Protein 7.2 (6.0-8.3) gm/dl Albumin 4.2 (3.4-5.0) gm/dl Globulin 3.0 (2.5-4.0) gm/dl Albumin/Globulin Ratio 1.4 (0.9-2) Discharge Plan Visit Data Chief Complaint: Fall Stated Complaint: FALL ON MONDAY,REF BY DOC ED Provider: Jr Patterson Discharge Problem: Ambulatory dysfunction, Weakness, Contusion of knee Forms Stand Alone Forms: My [facility] Prescriptions Prescriptions: No Action (DME) pen needle, diabetic [BD Ultra-Fine Short Pen Needle] 31 gauge x 5/16" needle See Rx Instructions .Route Qty: 200 3RF Rx Instructions: Use with insulin pen twice daily Dx:E11.9 famotidine 40 mg tablet 40 mg PO PM Qty: 90 1RF (DME) FreeStyle Shlomo 2 Sensor Kit See Rx Instructions .ROUTE .COMPLEX Qty: 2 5RF Dose Instruction: DIRECTED TO CHECK BLOOD SUGARS CONTINUOUSLY (REPLACE EVERY 14 DAYS) Rx Instructions: DIRECTED TO CHECK BLOOD SUGARS CONTINUOUSLY (REPLACE EVERY 14 DAYS) Ozempic 2 mg/dose (8 mg/3 mL) pen injector 2 mg subcut WK Qty: 3 5RF Rx Instructions: Mondays clopidogrel 75 mg tablet 75 mg PO QAM Qty: 30 0RF (DME) FreeStyle Shlomo 2 [place] Misc See Rx Instructions .Route Qty: 1 0RF Rx Instructions: As directed to check blood sugar (scan at least every 8 hours) (DME) Oxygen Home Liters Per Minute See Rx Instructions .Route Qty: 1 0RF Rx Instructions: As directed (DME) Shower Chair Misc See Rx Instructions .Route Qty: 1 0RF Rx Instructions: Shower transfer bench-G62.9 bupropion HCl [Wellbutrin SR] 100 mg tablet sustained-release 12 hr 100 mg PO BID Qty: 30 5RF Rx Instructions: Take one pill in the morning daily for two weeks and then twice daily. Do not take afternoon dose after 5 PM. Jardiance 10 mg tablet 10 mg PO QAM Qty: 30 0RF diclofenac sodium [Voltaren Arthritis Pain] 1 % gel 4 g topical QID PRN (Reason: Pain) Hold Instructions: hosp wrote "no" on med list ondansetron HCl 4 mg tablet 4 mg PO Q6H PRN (Reason: NAUSEA/VOMITING) Qty: 10 0RF torsemide 100 mg tablet 50 mg PO QAM PRN (Reason: Weight gain or leg swelling) Qty: 15 0RF Hold Instructions: hospital wrote "no' on dc list atorvastatin 80 mg tablet 80 mg PO QAM Hold Instructions: "no" cholecalciferol (vitamin D3) 50 mcg (2,000 unit) capsule 2,000 unit PO QAM Hold Instructions: "NO" hydrocodone-acetaminophen 5-325 mg tablet 1 tab PO Q6H PRN (Reason: pain) Qty: 10 0RF Rx Instructions: initial script cyanocobalamin (vitamin B-12) 1,000 mcg tablet 1,000 mcg PO QAM Rx Instructions: take for 6 months. Purchase [id number]. pantoprazole 40 mg tablet,delayed release (DR/EC) 40 mg PO QAM metoprolol succinate 25 mg tablet extended release 24 hr 25 mg PO QAM Rx Instructions: for high blood pressure sertraline 100 mg tablet 200 mg PO QAM Referrals Referrals: Melissa Frazier MD [Primary Care Provider] - Discharge Problem: Contusion of knee Qualifiers: Encounter type: initial encounter Laterality: unspecified laterality Qualified Code(s): S80.00XA - Contusion of unspecified knee, initial encounter
--- NOTE | 2024-09-10 19:45 | History & Physical Report ---
Date of Service September 10, 2024 Assessment & Plan (1) Ambulatory dysfunction: (2) Contusion of knee: (3) Primary hyperparathyroidism: (4) Type 2 diabetes mellitus: (5) Anxiety and depression: (6) Hypertension: (7) Left-sided weakness: Plan Mr. Frank is a 77-year-old male with a significant past medical history of hypertension, hyperlipidemia, heart failure with preserved ejection fraction, restrictive lung disease secondary to morbid obesity, restrictive cardiomyop athy, Hyperparathyroidism, CKD 3, and diabetes 1. Fall and Ambulatory dysfunction with inability of ADLs - H/O fall 3 days back - Ambulation deteriorated recently post fall and CVA. - He was able to manage daily living with help of his before 1 month, though he needed canes to walk. - Progressed to inability to stand or move around post fall. - Vitals: Stable - Knee exam: Not infectious , painless ROM, but needs effort. - Xray knee(09/08): No acute findings, Intact TKA, Small to moderate knee joint effusion similar to prior exam. - CBC/CMP: WNL - Need OT/PT assessment and in-patient rehabilitation. - OT/PT ordered for tomorrow. - Fall precaution ordered. 2.Left sided weakness - H/O CVA on July 2024 - Continue Aspirin and Clopidogrel. - Residual weakness in left LL> UL noted, improved than before per patient - Continue inpatient OT/PT ; ordered 3. Type II DM - HBA1C ( 08/04): 5.9 - Under Home Jardiance 10 mg QAM and Ozempic weekly injection. - Hold home medicine. - Insulin Aspart Sliding scale added with CF: 40 Carb ratio: 20 - RBS : 140-180 mg/dl 4. HTN: Blood pressure well controlled BP: 132/75 Continue home medicine: Metoprolol/ Torsemide 5. Restrictive cardiomyopathy/ Chronic diastolic heart failure: Clinically Stable. No SOB, Chest pain, Palpitation, new peripheral edema. BNP deferred d/t no s/s of acute failure Echo 07/22/24: EF 55-60% Continue torsemide and Metoprolol Recent Cardiology visit: 08/09/24 ; continue outpatient management 6. H/O VTE: Provoked thrombosis post fall many years ago Not under prophylaxis at home Added Lovenox 40 mg once daily for DVT prophylaxis during admission. 6.Anxiety/ Depression - Chronic stable - Continue Bupropion and Sertaline 7. Other Chronic issue: 1. Hyperlipidemia: Atorvastatin 60 mg Once daily continue 2. Isolated Monocytosis with mild leucocytosis: Chronic undiagnosed, Outpatient Hematology f/u recommended since last admssion. 3. Hyperparathyroidism: Stable with mild hypercalcemia, Calcium normal today. Not Surgical candidate. Recent visit with Endo( 08/23/2024); continue outpatient mgmt. 4. CKD: Stable with normal creatinine( 1.13) and eGFR: 66.94 today. Dispo Admit Med/Surg Diet: Diabetic type II DVT prophylaxis: Lovenox 40 mg Once daily Case management consulted on admission History of Present Illness Primary Care Provider: Melissa Frazier MD Mr. Frank is a 77-year-old male with a significant past medical history of hypertension, hyperlipidemia, heart failure with preserved ejection fraction, peripheral neuropathy, chronic hypoxemia requiring 2 L nasal cannula at night, restrictive lung disease secondary to morbid obesity, restrictive cardiomyopathy, Hyperparathyroidism, CKD 3, and diabetes. He presented to ED after being referred by orthopedics for left knee pain and swelling. He has a history of fall 3 days back. He fell down when he tried to assist his who fell down first. He lives with his , who was pretty much independent for ADLs. Patient had H/o TIA on July with residual weakness in his left UL and LL. He says his power is improving. He was advised for OT/PT. Had appointment this Monday, could not visit due to weakness and pain in his knee. He says he did not directly hit his knee, but fell in the floor on his back. He did not have pain immediately. He had visited ED on 08/08 after fall, trauma screening was negative and was dispatched home. He was seen by Ortho today and sent here for rehab placement as he is unable to move around. 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 He uses Oxygen sometimes during evening at home, however does not need regularly. According to patient he had h/o blood clots many years ago. No h/O fever, chest pain. SOB, palpitation, headache PMH: Reviewed PSH: Reviewed Drug and Allergy: Reviewed( allergic to iodine) Discussed about code status: Full code. Allergies Allergy/AdvReac Type Severity Reaction Status Date / Time adhesive tape Allergy Mild Redness of Verified 09/02/24 10:09 Skin Iodinated Contrast Media AdvReac Intermediate Gastrointestinal Verified 09/02/24 10:09 Upset iodine AdvReac Unknown "iodine Verified 09/02/24 10:09 solution caused unknown" Home Medications Medication Instructions Recorded Confirmed Type empagliflozin 10 mg tablet 10 mg PO QAM #30 tabs 01/22/22 09/10/24 Rx (Jardiance) Oxygen Home #1 ea 05/31/22 09/10/24 Rx pen needle, diabetic 31 gauge x #200 ea 06/13/22 09/10/24 Rx 5/16" (BD Ultra-Fine Short Pen Needle) Shower Chair #1 ea 02/15/23 09/10/24 Rx diclofenac sodium 1 % topical gel 4 g topical QID PRN Pain 01/20/24 09/10/24 History (Voltaren Arthritis Pain) ondansetron HCl 4 mg tablet 4 mg PO Q6H PRN NAUSEA/VOMITING 01/24/24 09/10/24 Rx #10 tabs famotidine 40 mg tablet 40 mg PO PM #90 tabs 03/20/24 09/10/24 Rx flash glucose sensor (FreeStyle #2 KITS 03/25/24 09/10/24 Rx Shlomo 2 Sensor kit) semaglutide 2 mg/dose (8 mg/3 mL) 2 mg (0.75 mL) subcut WK #3 mL 04/10/24 09/10/24 Rx subcutaneous pen injector (Ozempic) torsemide 100 mg tablet 50 mg (1/2 x 100 mg) PO QAM PRN 07/23/24 09/10/24 Rx Weight gain or leg swelling #15 tabs atorvastatin 80 mg tablet 80 mg PO QAM 08/03/24 09/10/24 History cholecalciferol (vitamin D3) 50 2,000 unit PO QAM 08/03/24 09/10/24 History mcg (2,000 unit) capsule bupropion HCl 100 mg tablet,12 hr 100 mg PO BID #30 ea 08/12/24 09/10/24 Rx sustained-release (Wellbutrin SR) clopidogrel 75 mg tablet 75 mg PO QAM #30 tabs 09/04/24 09/10/24 Rx flash glucose scanning reader #1 ea 09/04/24 09/10/24 Rx (FreeStyle Shlomo 2 [place]) hydrocodone 5 mg-acetaminophen 325 1 tab PO Q6H PRN pain #10 tabs 09/08/24 09/10/24 Rx mg tablet cyanocobalamin (vitamin B-12) 1,000 mcg PO QAM 09/10/24 09/10/24 History 1,000 mcg tablet metoprolol succinate 25 mg 25 mg PO QAM 09/10/24 09/10/24 History tablet,extended release 24 hr pantoprazole 40 mg tablet,delayed 40 mg PO QAM 09/10/24 09/10/24 History release sertraline 100 mg tablet 200 mg PO QAM 09/10/24 09/10/24 History Past Med/Surg History Problem List (Updated 09/10/24 @ 20:06 by Jr Patterson DO) Contusion of knee (Acute) Weakness (Acute) Ambulatory dysfunction (Acute) MCL sprain of left knee (Acute) Fall at home (Acute) Primary hyperparathyroidism H/O deep venous thrombosis 5+ yrs ago s/p fall Degenerative disc disease, cervical Left-sided weakness Hyperlipidemia TIA (transient ischemic attack) (Acute) Hypercalcemia Memory deficits Cervical spinal stenosis History of incision and drainage (06/04/24) Left Shoulder Abscess Incision and Drainage(Left) - Parminder Trottre DO Type 2 diabetes mellitus Anxiety and depression Atherogenic dyslipidemia Q fever Weakness (Acute) Sepsis (Acute) Hypertension Leukocytosis Shoulder pain, right Testicular nodule Restrictive cardiomyopathy GERD (gastroesophageal reflux disease) Complete rotator cuff tear of left shoulder (01/08/14) Obesity hypoventilation syndrome Chronic diastolic heart failure BPH (benign prostatic hyperplasia) Depression Obstructive sleep apnea Morbid obesity Constipation Trigeminal neuralgia of left side of face Lower back pain Neuropathy Lumbar radiculopathy Medical History Encounter for pre-operative examination Restrictive lung disease secondary to obesity CKD (chronic kidney disease) stage 3, GFR 30-59 ml/min History of septic arthritis History of pressure ulcer rt ankle stage 2 Right knee pain Hypoxia Degenerative disc disease Osteoarthritis BPH (benign prostatic hyperplasia) Hypertension Chronic diastolic heart failure, NYHA class 3 Nonobstructive atherosclerosis of coronary artery Pulmonary emphysema GERD (gastroesophageal reflux disease) Sleep apnea BIPAP Restrictive cardiomyopathy Surgical History History of open reduction and internal fixation (ORIF) procedure LEFT WRIST (HARDWARE REMOVED) 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) History of esophagogastroduodenoscopy (EGD) History of herniorrhaphy multiple History of tooth extraction History of cataract surgery RT/LEFT Difficult intubation "Elective" glidescope noted on 08/2018 [facility] record Status post total hip replacement, left History of colonoscopy History of arthroscopy RIGHT SHOULDER Hx of transurethral resection of prostate History of total knee replacement RIGHT/LEFT History of cardiac cath MULTIPLE (NO STENTS PLACED) MOST RECENT= 2018 S/P cholecystectomy Family History Mother , age 92 of a stroke Stroke Alzheimer disease Father , age 65 of a tree falling on him Accident, Onset Age: 65 Was in his yard cutting trees and a tree trunk fell and killed him Sister Breast cancer Daughter Brain tumor Denies family history of Ovarian cancer Prostate cancer Myocardial infarction Colorectal cancer Social History Smoking Status: Former smoker Age Started Using Tobacco: 18; Age Quit Using Tobacco: 30; packs per day: 1; Second Hand Exposure: No; Do You Dip or Chew Tobacco: No; Hx Alcohol Use: No Hx Substance Use: No Preferred Language: Mohawk Communication Ability: Effective Visual Impairment: No Limitations Hearing Ability: Normal Electrical Tech Required: No Beliefs That Will Affect Care: None marital status: Current Living Situation: Spouse Current Living Situation Comment: lives at home with current occupational status: retired 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[employer], 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, 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 No rhonchi, wheezes, or crackles. No increased work of breathing GI: Soft, Nondistended, Nontender, Normal Bowel sounds + Knee : Left knee mildly swollen with good active and passive ROM, patch of erythema on anterolateral side of left knee. No knee instability. Right sided knee normal. Ankle: Bl edema, non tender ankle and calf, Kinza's sign negative bilaterally. Skin: Warm, Dry Neuro: Alert, Oriented to TPP, Decreased muscle power on Left LL(4/5), Normal on BL UL, right UL Psych: Mood and Affect congruent, Cooperative on exam Results & Data Results & Data Vital Signs (Past 12 Hours) Vital Signs Temp Pulse Pulse Resp BP BP Pulse Ox 09/10/24 19:26 79 09/10/24 19:16 79 17 118/89 95 09/10/24 16:34 37 C 85 18 122/75 96 O2 Del Method 09/10/24 19:26 09/10/24 19:16 Room Air 09/10/24 16:34 Room Air Supervising Physician Co-Signing Physician Notes Patient seen and examined, chart reviewed, case discussed with Dr. Yris Singh and I agree with the assessment and plan as above except as otherwise noted Labs and images reviewed Jose Elias Frank is a 79yo M with a PMHX HTN, DM, TIA, HLD, neuropathy who was referred for progressive weakness. Sat had a fall and had difficulty standing. SInce that time despite negative trauma eval has continued to be weak and unable to ambulate. Referred for short term rehab/placement. +Residual weakness in LUE/LLE weakness from stroke, but improving slowly. Imaging Review: L total knee arthoplasty intact. No fracture. Lumbar MRI without critical spinal stensosis. MRI-B 08/05/24 naf. MRI-cspine 07/22/24 C7 stensosis. WBC is minimally elevated, no left shift. No infectious sx. Chronic elevation of monocyte cell line, no elevated serum protein. Outpt followup with heme, no clinical signs of infection. VSS, normal sats on room air Agree with admission, PT/OT consults, and CM consulted for placement. Agree w/ management of chronic medical issues as noted. Patient is reasonably well- controlled on admission, will defer basal as he is on semaglutide as outpatient. Will temporarily hold Jardiance which to us part conservative correction factor 40/carb ratio 20 with goal BSG [id number]. (2) Contusion of knee Encounter type: initial encounter Laterality: unspecified laterality Qualified Code(s): S80.00XA - Contusion of unspecified knee, initial encounter (6) Hypertension Hypertension type: unspecified Qualified Code(s): I10 - Essential (primary) hypertension
--- NOTE | 2024-09-10 20:00 | Billing Data ---
Date of Service September 10, 2024 Coding Level of Care Code 41938 INT INP/OBS CARE
[2024-09-10] MEDS ORDERED: POLYETHYLENE (MIRALAX) 17 GM PACK PO PRN (20:18)
[2024-09-10] MEDS ORDERED: MELATONIN 3 MG TAB PO PRN (20:18)
[2024-09-10] MEDS ORDERED: ALUMINUM/MAGNESIUM SUSP 30 ML UDC PO PRN (20:18)
[2024-09-10] MEDS ORDERED: GLUCOSE 40% GEL 15 GM TUBE PO PRN (22:08)
[2024-09-10] MEDS ORDERED: GLUCOSE 10 TAB/TUBE PO PRN (22:08)
[2024-09-10] MEDS ORDERED: DEXTROSE 50% 50 ML SYRINGE IV PRN (22:08)
[2024-09-10] MEDS ORDERED: GLUCAGON FOR INJ 1 MG VIAL SQ PRN (22:08)
[2024-09-10] MEDS ORDERED: CARBOHYDRATES FOR HYPOGLYCEMIA PO PRN (22:08)
[2024-09-10] MEDS ORDERED: TORSEMIDE 10 MG TAB PO PRN (22:08)
[2024-09-10] MEDS: INSULIN ASPART PER UNIT CHARGE SC SCH (22:27)
[2024-09-10] MEDS: DICLOFENAC SOD 1% GEL 100 GM TUBE EXT PRN (22:33)
[2024-09-10] MEDS: ACETAMINOPHEN 325 MG TAB PO PRN (22:33)
[2024-09-10] MEDS: buPROPion SR 100 MG TABCR PO SCH (22:34)
[2024-09-10] MEDS: FAMOTIDINE 40 MG TABLET PO SCH (22:34)
[2024-09-10] MEDS: ENOXAPARIN INJ 40 MG/0.4 ML SYR SQ SCH (22:39)
[2024-09-10] MEDS: oxyCODONE HCL IR 5 MG TAB (IMMEDIATE RELEASE) PO PRN (23:17)
--- NOTE | 2024-09-11 07:27 | Hospitalist Progress Note ---
Date of Service September 11, 2024 Assessment & Plan (1) Ambulatory dysfunction: Plan: Mr. Frank is a 77-year-old male with a significant past medical history of hypertension, hyperlipidemia, heart failure with preserved ejection fraction, restrictive lung disease secondary to morbid obesity, restrictive cardiomyopathy, Hyperparathyroidism, CKD 3, and diabetes this fall he had a few TIA-like episodes, fell three days ago sustained L knee contusion, following that unable to ambulate safely L knee xray negative for fracture OT rec ongoing therapy, home health safety eval PT eval pending (2) Thiamine deficiency: Plan: B1 level <6 (Jul 2024) This could be contributing to his presentation with falls, can cause neuropathy -IV thiamine 500 mg tid then oral replacement (3) Left-sided weakness: Plan: Had two TIA-like episodes this fall, but LLE weakness persisted. No stroke on serial brain MRIs. Spinal MRIs notable for C7, Lspine unremarkable -completed 1 month of DAPT with ASA/Plavix - decrease to plavix alone -atorvastatin recently increased -outpatient secured entrance monitor - some SVT and PAT, no afib -outpatient EMG planned by Dr. Kim, last neuro note - persistent LLE weakness more subjective -assess response to thiamine (4) Contusion of knee: (5) Primary hyperparathyroidism: (6) Type 2 diabetes mellitus: Plan: - HBA1C ( 08/04): 5.9 - Home Jardiance 10 mg QAM and Ozempic weekly injection. - Hold home medicine. - Insulin Aspart Sliding scale (7) Anxiety and depression: (8) Hypertension: Plan: Continue home medicine: Metoprolol/ Torsemide Plan Restrictive cardiomyopathy/ Chronic diastolic heart failure: Clinically Stable. No SOB, Chest pain, Palpitation, new peripheral edema. BNP deferred d/t no s/s of acute failure Echo 07/22/24: EF 55-60% Continue torsemide and Metoprolol Recent Cardiology visit: 08/09/24 ; continue outpatient management H/O VTE: Provoked thrombosis post fall many years ago Not under prophylaxis at home Added Lovenox 40 mg once daily for DVT prophylaxis during admission. Anxiety/ Depression - Chronic stable - Continue Bupropion and Sertaline Other Chronic issue: 1. Hyperlipidemia: Atorvastatin 60 mg Once daily continue 2. Isolated Monocytosis with mild leucocytosis: Chronic undiagnosed, Outpatient Hematology f/u recommended since last admssion. 3. Hyperparathyroidism: Stable with mild hypercalcemia, Calcium normal today. Not Surgical candidate. Recent visit with Endo( 08/23/2024); continue outpatient mgmt. 4. CKD: Stable with normal creatinine( 1.13) and eGFR: 66.94 today. ppx - enoxaparin dispo - TBD Admission and Anticipated Discharge Date Admission Date: September 10, 2024 Subjective Left knee hurts because he fell on it. He was going to help his who had fallen, then he fell. Physical Exam 2 Physical Exam: PHYSICAL EXAMINATION Last 24h vital signs reviewed, see documentation in flowsheet General: comfortable appearing, no distress, sitting in bed HEENT: Normocephalic, atraumatic, pupils round and equal, sclerae anicteric, no conjunctival injection, moist mucus membranes Lungs: Normal respiratory effort. Clear to auscultation bilaterally. No RRW Heart: Regular rate and rhythm, no murmurs. No JVDYeah Extremities: Warm, dry, well-perfused. mild extremity edema. mild left knee ecchymosis Neuro: Alert and oriented x 4, face symmetric, moves 4 extremities well Psych: Normal affect and behavior Results & Data Results & Data Vital Signs (Past 12 Hours) Vital Signs Temp Pulse Pulse Pulse Resp BP BP 09/11/24 07:21 98.4 F 83 18 132/77 09/10/24 22:00 98.4 F 87 18 167/98 H 09/10/24 22:00 09/10/24 21:37 83 18 112/89 09/10/24 21:01 81 16 132/75 09/10/24 20:53 82 19 98/79 L 09/10/24 20:00 81 18 125/63 09/10/24 19:26 79 Pulse Ox O2 Del Method 09/11/24 07:21 95 Room Air 09/10/24 22:00 96 Room Air 09/10/24 22:00 Room Air 09/10/24 21:37 95 Room Air 09/10/24 21:01 94 Room Air 09/10/24 20:53 96 Room Air 09/10/24 20:00 96 Room Air 09/10/24 19:26 Laboratory Results 09/10/24 16:45 09/10/24 16:45 PG Care Time/CCT Total # of Minutes Spent Total Time Spent with Patient: Total time spent is greater than 50% in coordination of care (as documented) at patient's floor/unit and/or counseling patient: Coding Level of Care Code 82027 SUB INP/OBS CARE 235MIN Diagnoses Ambulatory dysfunction R26.2 Thiamine deficiency E51.9 Left-sided weakness R53.1 Contusion of knee S80.00XA Encounter type: initial encounter Laterality: unspecified laterality Primary hyperparathyroidism E21.0 Type 2 diabetes mellitus E11.9 Anxiety and depression F41.9; F32.9 Hypertension, unspecified type I10 Hypertension type: unspecified (4) Contusion of knee Encounter type: initial encounter Laterality: unspecified laterality Qualified Code(s): S80.00XA - Contusion of unspecified knee, initial encounter (8) Hypertension Hypertension type: unspecified Qualified Code(s): I10 - Essential (primary) hypertension
[2024-09-11] MEDS: SERTRALINE HCL 100 MG TABLET PO SCH (08:33)
[2024-09-11] MEDS: CHOLECALCIFEROL 25 MCG (1000 UNITS) TAB PO SCH (08:33)
[2024-09-11] MEDS: ATORVASTATIN 40 MG TAB PO SCH (08:33)
[2024-09-11] MEDS: METOPROLOL SUCC 25MG EXT REL TAB PO SCH (08:34)
[2024-09-11] MEDS: CYANOCOBALAMIN (B-12) 500 MCG TABLET PO SCH (08:34)
[2024-09-11] MEDS: CLOPIDOGREL BISULFATE 75 MG TAB PO SCH (08:34)
[2024-09-11] MEDS: PANTOprazole 40 MG TAB PO SCH (08:35)
[2024-09-11] MEDS: THIAMINE HCL 500 MG in SODIUM CHLORIDE 0.9% 50 ML IV SCH (08:51)
[2024-09-11] MEDS: ALUMINUM/MAGNESIUM SUSP 30 ML UDC PO PRN (10:44)
--- NOTE | 2024-09-12 13:46 | Hospitalist Progress Note ---
Date of Service September 12, 2024 Assessment & Plan (1) Ambulatory dysfunction: Plan: Mr. Frank is a 77-year-old male with a significant past medical history of hypertension, hyperlipidemia, heart failure with preserved ejection fraction, restrictive lung disease secondary to morbid obesity, restrictive cardiomyopathy, Hyperparathyroidism, CKD 3, and diabetes this fall he had a few TIA-like episodes, fell three days ago sustained L knee contusion, following that unable to ambulate safely L knee xray negative for fracture OT rec ongoing therapy, home health safety eval PT rec short term rehab stay vs possible home with HH if he progresses to meet safety goals while in hospital, continued acute care PT recommended (2) Thiamine deficiency: Plan: B1 level <6 (Jul 2024) This could be contributing to his presentation with falls, can cause neuropathy -IV thiamine 500 mg tid then oral replacement (3) Left-sided weakness: Plan: Had two TIA-like episodes this fall, but LLE weakness persisted. No stroke on serial brain MRIs. Spinal MRIs notable for C7, Lspine unremarkable -completed 1 month of DAPT with ASA/Plavix - decrease to plavix alone -atorvastatin recently increased -outpatient electronic device monitor - some SVT and PAT, no afib -outpatient EMG planned by Dr. Kim, last neuro note - persistent LLE weakness more subjective -assess response to thiamine (4) Contusion of knee: (5) Primary hyperparathyroidism: (6) Type 2 diabetes mellitus: Plan: - HBA1C ( 08/04): 5.9 - Home Jardiance 10 mg QAM and Ozempic weekly injection. - Hold home medicine. - Insulin Aspart Sliding scale (7) Anxiety and depression: (8) Hypertension: Plan: Continue home medicine: Metoprolol/ Torsemide Plan Restrictive cardiomyopathy/ Chronic diastolic heart failure: Clinically Stable. No SOB, Chest pain, Palpitation, new peripheral edema. BNP deferred d/t no s/s of acute failure Echo 07/22/24: EF 55-60% Continue torsemide and Metoprolol Recent Cardiology visit: 08/09/24 ; continue outpatient management H/O VTE: Provoked thrombosis post fall many years ago Anxiety/ Depression - Chronic stable - Continue Bupropion and Sertaline Other Chronic issue: 1. Hyperlipidemia: Atorvastatin 60 mg Once daily continue 2. Isolated Monocytosis with mild leucocytosis: Chronic undiagnosed, Outpatient Hematology f/u recommended since last admssion. 3. Hyperparathyroidism: Stable with mild hypercalcemia Not Surgical candidate. Recent visit with Endo( 08/23/2024); continue outpatient mgmt. 4. CKD: Stable with normal creatinine( 1.13) and eGFR: 66.94 ppx - enoxaparin dispo - TBD Admission and Anticipated Discharge Date Admission Date: September 10, 2024 Subjective feeling ok, L knee remains painful but was able to ambulate 25, 25, 50 feet with PT continues to have LLE weakness but LUE has full strength Physical Exam Physical Exam: PHYSICAL EXAMINATION Last 24h vital signs reviewed, see documentation in flowsheet General: comfortable appearing, no distress, sitting in bed exam unchanged 09/12 HEENT: Normocephalic, atraumatic, pupils round and equal, sclerae anicteric, no conjunctival injection, moist mucus membranes Lungs: Normal respiratory effort. Clear to auscultation bilaterally. No RRW Heart: Regular rate and rhythm, no murmurs. No JVDYeah Extremities: Warm, dry, well-perfused. mild extremity edema. mild left knee ecchymosis Neuro: Alert and oriented x 4, face symmetric, moves 4 extremities well. 4/5 strength L hip flexor and 5/5 R hip flexor Psych: Normal affect and behavior Results & Data Results & Data Vital Signs (Past 12 Hours) Vital Signs Temp Pulse Resp BP Pulse Ox O2 Del Method 09/12/24 07:17 98.1 F 76 18 140/79 95 Room Air PG Care Time/CCT Total # of Minutes Spent Total Time Spent with Patient: Total time spent is greater than 50% in coordination of care (as documented) at patient's floor/unit and/or counseling patient: Coding Level of Care Code 16532 SUB INP/OBS CARE 2/35MIN Diagnoses Ambulatory dysfunction R26.2 Thiamine deficiency E51.9 Left-sided weakness R53.1 Contusion of knee S80.00XA Encounter type: initial encounter Laterality: unspecified laterality Primary hyperparathyroidism E21.0 Type 2 diabetes mellitus E11.9 Anxiety and depression F41.9; F32.9 Hypertension, unspecified type I10 Hypertension type: unspecified (4) Contusion of knee Encounter type: initial encounter Laterality: unspecified laterality Qualified Code(s): S80.00XA - Contusion of unspecified knee, initial encounter (8) Hypertension Hypertension type: unspecified Qualified Code(s): I10 - Essential (primary) hypertension
[2024-09-13 06:17] LABS: Creatinine Clr Calc Pharmacy 61.8 ml/min
--- NOTE | 2024-09-13 16:44 | Hospitalist Progress Note ---
Date of Service September 13, 2024 Assessment & Plan (1) Ambulatory dysfunction: Plan: Mr. Frank is a 77-year-old male with a significant past medical history of hypertension, hyperlipidemia, heart failure with preserved ejection fraction, restrictive lung disease secondary to morbid obesity, restrictive cardiomyopathy, Hyperparathyroidism, CKD 3, and diabetes this fall he had a few TIA-like episodes, fell three days ago sustained L knee contusion, following that unable to ambulate safely L knee xray negative for fracture OT rec ongoing therapy, home health safety eval PT rec short term rehab stay vs possible home with HH if he progresses to meet safety goals while in hospital, continued acute care PT recommended -see if he can progress with PT next few days for home discharge (2) Thiamine deficiency: Plan: B1 level <6 (Jul 2024) This could be contributing to his presentation with falls, can cause neuropathy -IV thiamine 500 mg tid x 9 doses complete 09/13 then oral replacement indefinitely (3) Left-sided weakness: Plan: Had two TIA-like episodes this fall, but LLE weakness persisted. No stroke on serial brain MRIs. Spinal MRIs notable for C7, Lspine unremarkable -completed 1 month of DAPT with ASA/Plavix - decrease to plavix alone -atorvastatin recently increased -outpatient cardiac care nurse - some SVT and PAT, no afib -outpatient EMG planned by Dr. Kim, last neuro note - persistent LLE weakness more subjective -assess response to thiamine (4) Contusion of knee: (5) Primary hyperparathyroidism: (6) Type 2 diabetes mellitus: Plan: - HBA1C ( 08/04): 5.9 - Home Jardiance 10 mg QAM and Ozempic weekly injection. - Hold home medicine. - Insulin Aspart Sliding scale - BG 80-100 (7) Anxiety and depression: (8) Hypertension: Plan: Continue home medicine: Metoprolol/ Torsemide Plan Restrictive cardiomyopathy/ Chronic diastolic heart failure: Clinically Stable. No SOB, Chest pain, Palpitation, new peripheral edema. BNP deferred d/t no s/s of acute failure Echo 07/22/24: EF 55-60% Continue torsemide and Metoprolol Recent Cardiology visit: 08/09/24 ; continue outpatient management H/O VTE: Provoked thrombosis post fall many years ago Anxiety/ Depression - Chronic stable - Continue Bupropion and Sertaline Other Chronic issue: 1. Hyperlipidemia: Atorvastatin 60 mg Once daily continue 2. Isolated Monocytosis with mild leucocytosis: Chronic undiagnosed, Outpatient Hematology f/u recommended since last admssion. AM CBC 3. Hyperparathyroidism: Stable with mild hypercalcemia Not Surgical candidate. Recent visit with Endo( 08/23/2024); continue outpatient mgmt. 4. CKD3: Cr slightly increased to 1.3, check BMP in am ppx - enoxaparin dispo - TBD Admission and Anticipated Discharge Date Admission Date: September 10, 2024 Subjective doing ok, feels like his mobility is improving no dyspnea or CP Physical Exam Physical Exam: PHYSICAL EXAMINATION Last 24h vital signs reviewed, see documentation in flowsheet General: was napping, awoke to voice exam unchanged 09/13 HEENT: Normocephalic, atraumatic, pupils round and equal, sclerae anicteric, no conjunctival injection, moist mucus membranes Lungs: Normal respiratory effort. Clear to auscultation bilaterally. No RRW Heart: Regular rate and rhythm, no murmurs. No JVD Extremities: Warm, dry, well-perfused. mild extremity edema. mild left knee ecchymosis Neuro: Alert and oriented x 4, face symmetric, moves 4 extremities well. 4/5 strength L hip flexor and 5/5 R hip flexor - unchanged today Psych: Normal affect and behavior Results & Data Results & Data Vital Signs (Past 12 Hours) Vital Signs Temp Pulse Resp BP Pulse Ox O2 Del Method 09/13/24 15:13 97.9 F 79 18 135/80 93 Room Air 09/13/24 09:20 Room Air 09/13/24 05:20 98.6 F 77 16 141/83 H 94 Room Air PG Care Time/CCT Total # of Minutes Spent Total Time Spent with Patient: Total time spent is greater than 50% in coordination of care (as documented) at patient's floor/unit and/or counseling patient: Coding Level of Care Code 44289 SUB INP/OBS CARE 2/35MIN Diagnoses Ambulatory dysfunction R26.2 Thiamine deficiency E51.9 Left-sided weakness R53.1 Contusion of knee S80.00XA Encounter type: initial encounter Laterality: unspecified laterality Primary hyperparathyroidism E21.0 Type 2 diabetes mellitus E11.9 Anxiety and depression F41.9; F32.9 Hypertension, unspecified type I10 Hypertension type: unspecified (4) Contusion of knee Encounter type: initial encounter Laterality: unspecified laterality Qualified Code(s): S80.00XA - Contusion of unspecified knee, initial encounter (8) Hypertension Hypertension type: unspecified Qualified Code(s): I10 - Essential (primary) hypertension
[2024-09-14 06:14] LABS: Hematocrit (blood only) 48.8 % (42.0-52.0); Hemoglobin 15.2 g/dl (14.0-18.0); Mean Corpuscular Hemoglobin 25.9 pg (25.0-34.0); Mean Corpuscular Hgb Conc 31.1 g/dL (32.0-36.0); Mean Corpuscular Volume 83.3 fL (80.0-100.0); Mean Platelet Volume 10.5 fL (9.4-12.4); Platelet Count 258 K/uL (130-400); RDW Coefficient of Variation 15.6 % (11.5-14.5); Red Blood Count 5.86 M/uL (4.70-6.10)
[2024-09-14 06:25] LABS: BUN Creatinine Ratio 15.5 (10-20); Calcium 10.7 mg/dl (8.6-10.3); Creatinine Clr Calc Pharmacy 69.3 ml/min; Potassium 4.5 mmol/L (3.5-5.1)
[2024-09-14 08:12] VITALS: RESP 16; TEMP 98.4; O2SAT 96
[2024-09-14] MEDS: THIAMINE HCL 100 MG TAB PO SCH (08:13)
[2024-09-14 11:25] VITALS: BP 141/78; PULSE 81
--- NOTE | 2024-09-14 17:05 | Discharge Summary ---
Discharge Summary Date of Service September 14, 2024 Principal Dx & Hospital Course #1 = Principal Diagnosis (1) Ambulatory dysfunction: Mr. Frank is a 77-year-old male with a significant past medical history of hypertension, hyperlipidemia, heart failure with preserved ejection fraction, restrictive lung disease secondary to morbid obesity, restrictive cardiomyopathy, Hyperparathyroidism, CKD 3, and diabetes this fall he had a few TIA-like episodes with two admissions for left sided weakness but negative brain MRIs, fell three days ago sustained L knee contusion, following that unable to ambulate safely, complained of ongoing LLE weakness L knee xray negative for fracture, bearing weight with some soreness PT/OT treated in hospital - getting around adequately but with continued unsteadiness. PT recommended rehab stay which he refused, ordered home health PT and OT. Grandson lives near him and assists. (2) Thiamine deficiency: B1 level <6 (Jul 2024) This could be contributing to his presentation with falls, can cause neuropathy and unsteady gait He also seems to have some cognitive impairment, which may improve -IV thiamine 500 mg tid x 9 doses complete 09/13 then oral replacement 100 mg indefinitely B12 level was normal (3) Left-sided weakness: Had two TIA-like episodes this fall, but LLE weakness persisted. No stroke on serial brain MRIs. Spinal MRIs notable for C7, Lspine unremarkable -completed 1 month of DAPT with ASA/Plavix - decreased to plavix alone -atorvastatin recently increased -outpatient air sampling and monitoring - some SVT and PAT, no afib -outpatient EMG planned by Dr. Kim, last neuro note - persistent LLE weakness more subjective - he's aware he'll need to call and reschedule EMG because he missed the appointment -assess response to thiamine -L hip flexor weakness seems improved compared to on admission (4) Contusion of knee: (5) Primary hyperparathyroidism: (6) Type 2 diabetes mellitus: - HBA1C ( 08/04): 5.9 - Home Jardiance 10 mg QAM and Ozempic weekly injection. (7) Anxiety and depression: (8) Hypertension: Continue home medicine: Metoprolol/ Torsemide Plan Restrictive cardiomyopathy/ Chronic diastolic heart failure: Clinically Stable. No SOB, Chest pain, Palpitation, new peripheral edema. Echo 07/22/24: EF 55-60% Continue torsemide and Metoprolol Recent Cardiology visit: 08/09/24 ; continue outpatient management H/O VTE: Provoked thrombosis post fall many years ago Anxiety/ Depression - Chronic stable - Continue Bupropion and Sertraline Other Chronic issue: 1. Hyperlipidemia: Atorvastatin 60 mg Once daily continue 2. Isolated Monocytosis with mild leucocytosis: Chronic undiagnosed, Outpatient Hematology f/u recommended since last admission. CBC's - leukocytosis seems to be improving. -leukocytosis and monocytosis can be caused by thiamine deficiency. Recommend repeat CBC with diff in 2-4 weeks and hematology referral if not resolved 3. Hyperparathyroidism: Stable with mild hypercalcemia Not Surgical candidate. Recent visit with Endo( 08/23/2024); continue outpatient mgmt. 4. CKD3: stable Cr 1.16 on discharge Notes For Next Care Provider Persistent leukocytosis with monocytosis - possibly improving/resolving. May be caused by thiamine deficiency. Recommend repeat CBC with diff in 2-4 weeks and hematology referral if not resolved Indefinite thiamine replacement 100 mg daily Needs to reschedule his EMG Medication Changes From Visit Added thiamine Admission HPI Per Admitting Provider Mr. Frank is a 77-year-old male with a significant past medical history of hypertension, hyperlipidemia, heart failure with preserved ejection fraction, peripheral neuropathy, chronic hypoxemia requiring 2 L nasal cannula at night, restrictive lung disease secondary to morbid obesity, restrictive cardiomyopathy, Hyperparathyroidism, CKD 3, and diabetes. He presented to ED after being referred by orthopedics for left knee pain and swelling. He has a history of fall 3 days back. He fell down when he tried to assist his who fell down first. He lives with his , who was pretty much independent for ADLs. Patient had H/o TIA on July with residual weakness in his left UL and LL. He says his power is improving. He was advised for OT/PT. Had appointment this Monday, could not visit due to weakness and pain in his knee. He says he did not directly hit his knee, but fell in the floor on his back. He did not have pain immediately. He had visited ED on 08/08 after fall, trauma screening was negative and was dispatched home. He was seen by Ortho today and sent here for rehab placement as he is unable to move around. 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 He uses Oxygen sometimes during evening at home, however does not need regularly. According to patient he had h/o blood clots many years ago. No h/O fever, chest pain. SOB, palpitation, headache PMH: Reviewed PSH: Reviewed Drug and Allergy: Reviewed( allergic to iodine) Discussed about code status: Full code. Discharge Exam PHYSICAL EXAMINATION Last 24h vital signs reviewed, see documentation in flowsheet General: awake and alert HEENT: Normocephalic, atraumatic, pupils round and equal, sclerae anicteric, no conjunctival injection, moist mucus membranes Lungs: Normal respiratory effort. Clear to auscultation bilaterally. No RRW Heart: Regular rate and rhythm, no murmurs. No JVD Extremities: Warm, dry, well-perfused. mild extremity edema. mild left knee ecchymosis Neuro: Alert and oriented x 4 but seems vague/forgetful, face symmetric, moves 4 extremities well. 4+/5 strength L hip flexor (improved?) and 5/5 R hip flexor Psych: Normal affect and behavior Discharge Plan Discharge Items Patient Disposition: Home - Home Health Services Reason For Visit: FALL SECONDARY TO AMBULATORY DYSFUNCTION Discharge Diagnosis: Fall, ambulatory dysfunction, thiamine deficiency Activity: Resume your previous activity Weightbearing: Full weightbearing Non-emergency contact: Primary Care Provider Call non-emergency contact if: you have any medication questions and your symptoms worsen Follow-up/Referrals: Melissa Frazier MD [Primary Care Provider] - Diet: Carb Consistent or DM2 Addtl Attending Provider Instructions: Home health PT and OT will help you get back to your previous level of functioning Use your walker You have thiamine (B1) deficiency. This can cause all kinds of symptoms including cognitive/memory problems, unsteady gait, neuropathy, gastrointestinal issues and others -we replaced this with high-dose IV thiamine -you need to take oral thiamine supplement 100 mg daily indefinitely to prevent recurrence You can stop aspirin but continue plavix Please call to reschedule your EMG and follow up with neurology as planned It was a pleasure taking care of you in the hospital Dian Nunez MD Pending Studies at Discharge: No Stand-Alone Forms: My Payoff, Smoking Cessation Medications and DC Order Prescriptions: New thiamine HCl (vitamin B1) 100 mg Tablet 100 mg PO QAM Qty: 0 0RF Rx Instructions: Buy over the counter. Continue indefinitely. Continued (DME) pen needle, diabetic [BD Ultra-Fine Short Pen Needle] 31 gauge x 5/16" needle See Rx Instructions .Route Qty: 200 3RF Rx Instructions: Use with insulin pen twice daily Dx:E11.9 famotidine 40 mg tablet 40 mg PO PM Qty: 90 1RF (DME) FreeStyle Shlomo 2 Sensor Kit See Rx Instructions .ROUTE .COMPLEX Qty: 2 5RF Dose Instruction: DIRECTED TO CHECK BLOOD SUGARS CONTINUOUSLY (REPLACE EVERY 14 DAYS) Rx Instructions: DIRECTED TO CHECK BLOOD SUGARS CONTINUOUSLY (REPLACE EVERY 14 DAYS) Ozempic 2 mg/dose (8 mg/3 mL) pen injector 2 mg subcut WK Qty: 3 5RF Rx Instructions: Monday mornings clopidogrel 75 mg tablet 75 mg PO QAM Qty: 30 0RF (DME) FreeStyle Shlomo 2 [place] Misc See Rx Instructions .Route Qty: 1 0RF Rx Instructions: As directed to check blood sugar (scan at least every 8 hours) (DME) Oxygen Home Liters Per Minute See Rx Instructions .Route Qty: 1 0RF Rx Instructions: As directed (DME) Shower Chair Misc See Rx Instructions .Route Qty: 1 0RF Rx Instructions: Shower transfer bench-G62.9 bupropion HCl [Wellbutrin SR] 100 mg tablet sustained-release 12 hr 100 mg PO BID Qty: 30 5RF Rx Instructions: Take one pill in the morning daily for two weeks and then twice daily. Do not take afternoon dose after 5 PM. Jardiance 10 mg tablet 10 mg PO QAM Qty: 30 0RF diclofenac sodium [Voltaren Arthritis Pain] 1 % gel 4 g topical QID PRN (Reason: Pain) Hold Instructions: hosp wrote "no" on med list ondansetron HCl 4 mg tablet 4 mg PO Q6H PRN (Reason: NAUSEA/VOMITING) Qty: 10 0RF torsemide 100 mg tablet 50 mg PO QAM PRN (Reason: Weight gain or leg swelling) Qty: 15 0RF Hold Instructions: hospital wrote "no' on dc list atorvastatin 80 mg tablet 80 mg PO QAM Hold Instructions: "no" cholecalciferol (vitamin D3) 50 mcg (2,000 unit) capsule 2,000 unit PO QAM Hold Instructions: "NO" hydrocodone-acetaminophen 5-325 mg tablet 1 tab PO Q6H PRN (Reason: pain) Qty: 10 0RF Rx Instructions: initial script cyanocobalamin (vitamin B-12) 1,000 mcg tablet 1,000 mcg PO QAM Rx Instructions: take for 6 months. Purchase [id number]. pantoprazole 40 mg tablet,delayed release (DR/EC) 40 mg PO QAM metoprolol succinate 25 mg tablet extended release 24 hr 25 mg PO QAM Rx Instructions: for high blood pressure sertraline 100 mg tablet 200 mg PO QAM Discharge Orders: Discharge Order (Routine); Ordered 09/14/24 Ordered By: Dian Nunez Admission Data Admit Date/Time: 09/10/24 20:18 Attending Provider: Dian Nunez Admit Provider: Yris Singh Primary Care Provider: Melissa Frazier Other Providers: Antonio Cabezas; [facility] Other Interventions: Discharge Summary Assessment (RN) Last Done: 09/14/24 11:24 Hospital Stay Data Consultations 09/10/24 18:27 ED Decision to Admit Stat Pending Results Patient Have Any Pending Studies at Discharge: No Discharge Instructions Given to Patient (Per Discharging Provider) Home health PT and OT will help you get back to your previous level of functioning Use your walker You have thiamine (B1) deficiency. This can cause all kinds of symptoms including cognitive/memory problems, unsteady gait, neuropathy, gastrointestinal issues and others -we replaced this with high-dose IV thiamine -you need to take oral thiamine supplement 100 mg daily indefinitely to prevent recurrence You can stop aspirin but continue plavix Please call to reschedule your EMG and follow up with neurology as planned It was a pleasure taking care of you in the hospital Dian Nunez MD Total Time Total Time Spent Total Time Spent (In Minutes): <30 minutes Coding Level of Care Code 24515 IN/OBS DISCH 30 MIN/LESS Diagnoses Ambulatory dysfunction R26.2 Thiamine deficiency E51.9 Left-sided weakness R53.1 Contusion of knee S80.00XA Encounter type: initial encounter Laterality: unspecified laterality Primary hyperparathyroidism E21.0 Type 2 diabetes mellitus E11.9 Anxiety and depression F41.9; F32.9 Hypertension, unspecified type I10 Hypertension type: unspecified
== END 2024-09-14 13:12 | disposition home health service (06) | DRG 641 ==
LOC: ED 16:20 → 3N 20:18 → INTOOBSV 20:18 → SUATTDRO 20:18 → 3N 21:37

== ENCOUNTER 2025-01-08 01:13 | Inpatient (IN) ==
[2025-01-08 01:57] LABS: Basophils # (auto) 0.02 K/uL (0.00-0.20); Basophils % (auto) 0.2 %; Eosinophils # (auto) 0.23 K/uL (0.00-0.50); Eosinophils % (auto) 2.2 %; Hematocrit (blood only) 51.1 % (42.0-52.0); Hemoglobin 16.1 g/dl (14.0-18.0); Immature Granulocytes # (auto) 0.06 K/uL (0.01-0.20); Immature Granulocytes % (auto) 0.6 %; Lymphocytes # (auto) 1.47 K/uL (1.20-3.40); Lymphocytes % (auto) 14.4 %; Mean Corpuscular Hemoglobin 26.8 pg (25.0-34.0); Mean Corpuscular Hgb Conc 31.5 g/dL (32.0-36.0); Mean Corpuscular Volume 85.2 fL (80.0-100.0); Mean Platelet Volume 10.6 fL (9.4-12.4); Monocytes # (auto) 1.14 K/uL (0.11-0.59); Monocytes % (auto) 11.1 %; Neutrophils # (auto) 7.31 K/uL (1.40-6.50); Neutrophils % (auto) 71.5 %; Platelet Count 220 K/uL (130-400); RDW Coefficient of Variation 16.3 % (11.5-14.5); RDW Standard Deviation 48.6 fL (36.4-46.3); White Blood Count 10.23 K/ul (4.8-10.8)
--- NOTE | 2025-01-08 01:59 | Emergency Department Note ---
Impression & Plan Headache, Abdominal pain, Nausea & vomiting ED Provider Note ED Provider Note NAME: OJRDAN VILLANUEVA AGE:79 SEX: Male : 1945 ARRIVES VIA: Private vehicle INFORMANT: Patient, ED PROVIDER(s): Hafsa Hi DO CHIEF COMPLAINT: Headache, vomiting, abdominal pain HPI: This is a 79-year-old male who presents emergency department due to concern for headache, nausea or vomiting, and abdominal pain. Patient states he has been having intermittent headaches since his last stroke. He states he typically gets them up to 3 times a week. He states he does not typically have nausea or vomiting associated with the headaches or noticed vision changes. He states he has been more off balance and unsteady walking. He has not had any falls. He states he also has had intermittent abdominal pain. He states yesterday he vomited when he had pain additionally. He states he does occasionally have difficulty with constipation and has not had a bowel movement in 2 days. He has no pain on arrival here at this time and no nausea. at bedside noted that he had increased weakness and unsteady gait at home tonight and briefly seemed confused. She states he seems back to normal at this time. They state he has had similar symptoms previously and was previously admitted. Patient does take Plavix due to his prior history of stroke. No recent change in medications or diet. Patient states he does have an outpatient neurology appointment but is not till next month. Patient states he has been taking Tylenol for his headaches without any significant relief. He did ask his PCP about other options and was told he could intermittently use ibuprofen. PAST MEDICAL HISTORY:See Below PAST SURGICAL HISTORY:See Below FAMILY HISTORY:See Below SOCIAL HISTORY:See Below HOME MEDICATIONS:See Below ALLERGIES:See Below VITALS:See Below PHYSICAL EXAMINATION: GENERAL: alert, well appearing, well nourished, no distress, non-toxic EYE EXAM: normal conjunctiva, PERRL and EOM's grossly intact OROPHARYNX: no exudate, no erythema, lips, buccal mucosa, and tongue normal and mucous membranes are moist NECK: supple, no nuchal rigidity, no adenopathy, non-tender LUNGS: Clear to auscultation. Normal chest wall mechanics, no w/r/r HEART: no murmurs, S1 normal and S2 normal ABDOMEN: abdomen soft, non-tender, normo-active bowel sounds, no masses, no rebound or guarding. BACK: Back is symmetrical on inspection and there is no deformity, no midline tenderness, no CVA tenderness. SKIN: no rashes, petechiae, orbruising UPPER EXTREMITIES: upper extremities are grossly normal. FROM, nml pulses b/l. LOWER EXTREMITIES: No pitting edema. FROM, nml pulses b/l. NEURO EXAM: Normal sensorium, cranial nerves II-XII grossly intact, normal speech, no facial droop,mild left-sided weakness since the prior stroke, gross sensation intact. No ataxia. Vital Signs: reviewed and remarkable Differential Diagnosis: dehydration, stroke, anemia, hypoglycemia, hyponatremia, hypernatremia, urinary tract infection, pneumonia, bronchitis, sepsis, gastroenteritis, additional abdominal pathology, metabolic abnormalities, as well as others were considered MEDICAL DECISION MAKING: This is a 79 yo male who presents emergency department due to concern for headache. Patient also notes abdominal pain and nausea vomiting however he did not have either of those symptoms on arrival. He was afebrile and hemodynamically stable. No evolving neurologic symptoms other than his chronic weakness from his prior stroke. Labs drawn and sent, IV established, EKG performed at bedside interpreted me and patient monitored on telemetry. He was sent for CT head without contrast additionally. Nasal swab obtained for respiratory viral panel and patient started on IV fluids. Patient given IV Tylenol, IV Zofran, IV magnesium additionally for his headache. His labs and imaging are reassuring. He continued to complain of a frontal and retro-orbital headache and after further discussion at bedside, IV Depacon was added. Patient had no improvement. I reached out to on-call neurology who the patient has seen before, Dr. Alvares, who recommended additional labs and additional imaging to complete the stroke evaluation given his history and to admit him for further management. Case discussed with the hospitalist team. Consultation(s): 0647: Discussed with Dr. Alvares, neurology, via [place] text. Recommended adding ESR and CRP and adding CT angiography to complete the stroke evaluation and bring him in for further evaluation. 0714: Discussed with Dr. Riddle, [place] hospitalist team, for additional evaluation and mgmt. ER Treatment Provided: See below Diagnostics Interpreted By Me: -ECG: Sinus tachycardia 117, normal axis, appearance of incomplete right bundle branch block, normal intervals, nonspecific ST/T wave changes -Cardiac Monitoring: An order was placed for continuous cardiac monitoring. The monitor shows a rate of 92 with normal sinus rhythm. -Laboratory studies: As stated above and show below. -Imaging studies: ct head: no ICH Triage Nursing Note Reviewed Prior/Outside Records Reviewed -prior discharge summary from August 2024 reviewed Past Med/Surg History Problem List Nausea & vomiting (Acute) Abdominal pain (Acute) Headache (Acute) Erectile dysfunction (Chronic) Thiamine deficiency Contusion of knee (Acute) Ambulatory dysfunction (Acute) Primary hyperparathyroidism H/O deep venous thrombosis 5+ yrs ago s/p fall Degenerative disc disease, cervical Left-sided weakness Hyperlipidemia TIA (transient ischemic attack) (Acute) Hypercalcemia Memory deficits Cervical spinal stenosis History of incision and drainage (06/04/24) Left Shoulder Abscess Incision and Drainage(Left) - Parminder Trotter, DO Type 2 diabetes mellitus Anxiety and depression Atherogenic dyslipidemia Q fever Weakness (Acute) Sepsis (Acute) Hypertension Leukocytosis Shoulder pain, right Testicular nodule Restrictive cardiomyopathy GERD (gastroesophageal reflux disease) Complete rotator cuff tear of left shoulder (01/08/14) Obesity hypoventilation syndrome Chronic diastolic heart failure BPH (benign prostatic hyperplasia) Depression Obstructive sleep apnea Morbid obesity Constipation Trigeminal neuralgia of left side of face Lower back pain Neuropathy Lumbar radiculopathy Medical History Encounter for pre-operative examination Restrictive lung disease secondary to obesity CKD (chronic kidney disease) stage 3, GFR 30-59 ml/min History of septic arthritis History of pressure ulcer rt ankle stage 2 Right knee pain Hypoxia Degenerative disc disease Osteoarthritis BPH (benign prostatic hyperplasia) Hypertension Chronic diastolic heart failure, NYHA class 3 Nonobstructive atherosclerosis of coronary artery Pulmonary emphysema GERD (gastroesophageal reflux disease) Sleep apnea BIPAP Restrictive cardiomyopathy Surgical History History of open reduction and internal fixation (ORIF) procedure LEFT WRIST (HARDWARE REMOVED) 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) History of esophagogastroduodenoscopy (EGD) History of herniorrhaphy multiple History of tooth extraction History of cataract surgery RT/LEFT Difficult intubation "Elective" glidescope noted on 08/2018 [facility] record Status post total hip replacement, left History of colonoscopy History of arthroscopy RIGHT SHOULDER Hx of transurethral resection of prostate History of total knee replacement RIGHT/LEFT History of cardiac cath MULTIPLE (NO STENTS PLACED) MOST RECENT= 2018 S/P cholecystectomy Family History Mother , age 92 of a stroke Stroke Alzheimer disease Father , age 65 of a tree falling on him Accident, Onset Age: 65 Was in his yard cutting trees and a tree trunk fell and killed him Sister Breast cancer Daughter Brain tumor Denies family history of Ovarian cancer Prostate cancer Myocardial infarction Colorectal cancer Social History Smoking Status: Former smoker Tobacco Type: Cigarettes Age Started Using Tobacco: 18; Age Quit Using Tobacco: 30; packs per day: 1; Second Hand Exposure: Yes; Do You Dip or Chew Tobacco: No; Hx Alcohol Use: No Hx Substance Use: No Preferred Language: Setswana Communication Ability: Effective Visual Impairment: No Limitations Hearing Ability: Normal Letter Of Credit Document Examiner Required: No Beliefs That Will Affect Care: Zoroastrianism Zoroastrianism Beliefs: none marital status: Current Living Situation: Spouse Current Living Situation Comment: lives at home with current occupational status: retired 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[employer], 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, 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 How many Children do You have: 2 Feels Safe at Home: Yes Childhood Exposure to Second-Hand Smoke: No Diet: regular Diet Comment: regular Dental Care, Regularly: Yes Physical Activity Frequency: Does not Exercise Seatbelt Use: sometimes Sunscreen Use: No Assistive Devices: Glasses and Walker Allergies Allergies Allergy/AdvReac Type Severity Reaction Status Date / Time adhesive tape Allergy Mild Redness of Verified 01/08/25 01:55 Skin Iodinated Contrast Media AdvReac Intermediate Gastrointestinal Verified 01/08/25 01:55 Upset iodine AdvReac Unknown "iodine Verified 01/08/25 01:55 solution caused unknown" Home Meds Home Medications Medication Instructions Recorded Confirmed diclofenac sodium 1 % topical gel 4 g topical QID PRN Pain 01/20/24 01/08/25 (Voltaren Arthritis Pain) atorvastatin 80 mg tablet 80 mg PO QAM 08/03/24 01/08/25 cyanocobalamin (vitamin B-12) 1,000 mcg PO QAM 09/10/24 01/08/25 1,000 mcg tablet metoprolol succinate 25 mg 25 mg PO QAM 09/10/24 01/08/25 tablet,extended release 24 hr sertraline 100 mg tablet 200 mg PO QAM 09/10/24 01/08/25 cholecalciferol (vitamin D3) 25 75 mcg PO DAILY 01/08/25 01/08/25 mcg (1,000 unit) capsule (Vitamin D3) nystatin 100,000 unit/gram topical 1 applic topical BID PRN Skin 01/08/25 01/08/25 powder Irritation Previous Rx's Medication Instructions Recorded empagliflozin 10 mg tablet 10 mg PO QAM #30 tabs 01/22/22 (Jardiance) Oxygen Home #1 ea 05/31/22 pen needle, diabetic 31 gauge x #200 ea 06/13/2202/28" (BD Ultra-Fine Short Pen Needle) Shower Chair #1 ea 02/15/23 torsemide 100 mg tablet 50 mg (1/2 x 100 mg) PO QAM PRN 07/23/24 Weight gain or leg swelling #15 tabs bupropion HCl 100 mg tablet,12 hr 100 mg PO BID #30 ea 08/12/24 sustained-release (Wellbutrin SR) thiamine HCl (vitamin B1) 100 mg 100 mg PO QAM #0 tabs 09/14/24 tablet famotidine 40 mg tablet 40 mg PO PM #90 tabs 09/18/24 pantoprazole 40 mg tablet,delayed 40 mg PO QAM #90 tabs 09/18/24 release semaglutide 2 mg/dose (8 mg/3 mL) 2 mg (0.75 mL) subcut WK #3 mL 09/30/24 subcutaneous pen injector ([facility] Directions) flash glucose scanning reader #1 ea 10/14/24 (FreeStyle [place] 2 [place]) flash glucose sensor (FreeStyle #2 KITS 10/14/24 Shlomo 2 Sensor kit) ondansetron 4 mg disintegrating 4 - 8 mg (1 - 2 x 4 mg) PO Q6H PRN 10/20/24 tablet nausea and vomiting #20 tabs blood-glucose meter,continuous #1 ea 11/11/24 (Dexcom G6 [employer]) blood-glucose sensor (Dexcom G6 #3 ea 11/11/24 Sensor device) blood-glucose transmitter (Dexcom #1 ea 11/11/24 G6 Transmitter device) clopidogrel 75 mg tablet 75 mg PO QAM #30 tabs 12/12/24 Results & Data (ED) Vital Signs Vital Signs - 24 hr 01/08/25 01:25 01/08/25 01:37 01/08/25 01:40 Temperature 36.8 C Temperature Source Temporal Artery Scan Pulse Rate 125 H Pulse Rate from SpO2 Sensor Respiratory Rate 18 Respiratory Effort / Characteristics Non-Labored Respiratory Depth Normal Blood Pressure 133/79 131/107 H Blood Pressure Mean 97 116 Pulse Oximetry 92 90 Oxygen Delivery Method Room Air Room Air Sepsis Recent Fever Within 48 Hours No Sepsis New/Unexplained Change in Mental Status No Sepsis Action Taken by Nursing No Action Required 01/08/25 01:40 01/08/25 01:42 01/08/25 01:43 Temperature Temperature Source Pulse Rate 120 H 117 H Pulse Rate from SpO2 Sensor 116 H Respiratory Rate 30 H Respiratory Effort / Characteristics Respiratory Depth Blood Pressure Blood Pressure Mean Pulse Oximetry 90 91 Oxygen Delivery Method Room Air Sepsis Recent Fever Within 48 Hours Sepsis New/Unexplained Change in Mental Status Sepsis Action Taken by Nursing 01/08/25 01:45 01/08/25 02:00 01/08/25 02:03 Temperature Temperature Source Pulse Rate 112 H Pulse Rate from SpO2 Sensor 107 H Respiratory Rate 26 H Respiratory Effort / Characteristics Respiratory Depth Blood Pressure 111/79 123/76 Blood Pressure Mean 90 86 Pulse Oximetry 90 Oxygen Delivery Method Sepsis Recent Fever Within 48 Hours Sepsis New/Unexplained Change in Mental Status Sepsis Action Taken by Nursing 01/08/25 02:30 01/08/25 02:45 01/08/25 03:00 Temperature Temperature Source Pulse Rate Pulse Rate from SpO2 Sensor Respiratory Rate Respiratory Effort / Characteristics Respiratory Depth Blood Pressure 105/73 128/84 116/79 Blood Pressure Mean 93 90 82 Pulse Oximetry Oxygen Delivery Method Sepsis Recent Fever Within 48 Hours Sepsis New/Unexplained Change in Mental Status Sepsis Action Taken by Nursing 01/08/25 03:03 01/08/25 03:15 01/08/25 03:30 Temperature Temperature Source Pulse Rate 102 H Pulse Rate from SpO2 Sensor 102 H Respiratory Rate 25 H Respiratory Effort / Characteristics Respiratory Depth Blood Pressure 122/78 122/81 Blood Pressure Mean 83 88 Pulse Oximetry 93 Oxygen Delivery Method Sepsis Recent Fever Within 48 Hours Sepsis New/Unexplained Change in Mental Status Sepsis Action Taken by Nursing 01/08/25 03:30 01/08/25 03:36 03/26/25 03:42 Temperature Temperature Source Pulse Rate 105 H 101 H Pulse Rate from SpO2 Sensor 109 H 104 H Respiratory Rate 26 H 20 Respiratory Effort / Characteristics Respiratory Depth Blood Pressure 122/81 Blood Pressure Mean 88 Pulse Oximetry 95 94 Oxygen Delivery Method Room Air Room Air Sepsis Recent Fever Within 48 Hours Sepsis New/Unexplained Change in Mental Status Sepsis Action Taken by Nursing 01/08/25 03:45 01/08/25 04:00 01/08/25 04:30 Temperature Temperature Source Pulse Rate 105 H 96 H 100 H Pulse Rate from SpO2 Sensor 110 H 102 H Respiratory Rate 24 22 21 Respiratory Effort / Characteristics Respiratory Depth Blood Pressure 143/81 H 127/87 126/80 Blood Pressure Mean 101 100 94 Pulse Oximetry 97 93 94 Oxygen Delivery Method Room Air Room Air Room Air Sepsis Recent Fever Within 48 Hours Sepsis New/Unexplained Change in Mental Status Sepsis Action Taken by Nursing 01/08/25 04:45 01/08/25 04:45 01/08/25 05:00 Temperature Temperature Source Pulse Rate Pulse Rate from SpO2 Sensor Respiratory Rate Respiratory Effort / Characteristics Respiratory Depth Blood Pressure 116/69 116/69 122/81 Blood Pressure Mean 76 76 99 Pulse Oximetry Oxygen Delivery Method Sepsis Recent Fever Within 48 Hours Sepsis New/Unexplained Change in Mental Status Sepsis Action Taken by Nursing 01/08/25 05:15 01/08/25 05:30 01/08/25 06:05 Temperature Temperature Source Pulse Rate 90 87 95 H Pulse Rate from SpO2 Sensor 88 82 Respiratory Rate 21 20 Respiratory Effort / Characteristics Respiratory Depth Blood Pressure 112/64 109/70 Blood Pressure Mean 80 83 Pulse Oximetry 94 92 Oxygen Delivery Method Sepsis Recent Fever Within 48 Hours Sepsis New/Unexplained Change in Mental Status Sepsis Action Taken by Nursing 01/08/25 06:09 01/08/25 06:15 01/08/25 06:29 Temperature Temperature Source Pulse Rate 93 H 87 Pulse Rate from SpO2 Sensor 91 H 85 Respiratory Rate 19 23 Respiratory Effort / Characteristics Respiratory Depth Blood Pressure 154/94 H Blood Pressure Mean 114 111 Pulse Oximetry 95 91 Oxygen Delivery Method Sepsis Recent Fever Within 48 Hours Sepsis New/Unexplained Change in Mental Status Sepsis Action Taken by Nursing 01/08/25 07:00 01/08/25 07:00 01/08/25 07:00 Temperature Temperature Source Pulse Rate Pulse Rate from SpO2 Sensor Respiratory Rate Respiratory Effort / Characteristics Respiratory Depth Blood Pressure 119/79 119/79 119/79 Blood Pressure Mean 95 95 95 Pulse Oximetry Oxygen Delivery Method Sepsis Recent Fever Within 48 Hours Sepsis New/Unexplained Change in Mental Status Sepsis Action Taken by Nursing 01/08/25 07:00 01/08/25 07:00 01/08/25 07:00 Temperature Temperature Source Pulse Rate Pulse Rate from SpO2 Sensor Respiratory Rate Respiratory Effort / Characteristics Respiratory Depth Blood Pressure 119/79 119/79 119/79 Blood Pressure Mean 95 95 95 Pulse Oximetry Oxygen Delivery Method Sepsis Recent Fever Within 48 Hours Sepsis New/Unexplained Change in Mental Status Sepsis Action Taken by Nursing 01/08/25 07:15 01/08/25 07:15 01/08/25 07:15 Temperature Temperature Source Pulse Rate Pulse Rate from SpO2 Sensor Respiratory Rate Respiratory Effort / Characteristics Respiratory Depth Blood Pressure 121/71 121/71 121/71 Blood Pressure Mean 96 96 96 Pulse Oximetry Oxygen Delivery Method Sepsis Recent Fever Within 48 Hours Sepsis New/Unexplained Change in Mental Status Sepsis Action Taken by Nursing 01/08/25 07:15 01/08/25 07:24 01/08/25 07:30 Temperature Temperature Source Pulse Rate 82 Pulse Rate from SpO2 Sensor 87 Respiratory Rate 26 H Respiratory Effort / Characteristics Respiratory Depth Blood Pressure 121/71 113/94 Blood Pressure Mean 96 98 Pulse Oximetry 94 Oxygen Delivery Method Sepsis Recent Fever Within 48 Hours Sepsis New/Unexplained Change in Mental Status Sepsis Action Taken by Nursing 01/08/25 07:30 01/08/25 07:30 01/08/25 07:30 Temperature Temperature Source Pulse Rate Pulse Rate from SpO2 Sensor Respiratory Rate Respiratory Effort / Characteristics Respiratory Depth Blood Pressure 113/94 113/94 113/94 Blood Pressure Mean 98 98 98 Pulse Oximetry Oxygen Delivery Method Sepsis Recent Fever Within 48 Hours Sepsis New/Unexplained Change in Mental Status Sepsis Action Taken by Nursing 01/08/25 07:33 01/08/25 07:45 01/08/25 07:45 Temperature Temperature Source Pulse Rate 79 Pulse Rate from SpO2 Sensor 84 Respiratory Rate 23 Respiratory Effort / Characteristics Respiratory Depth Blood Pressure 134/86 134/86 Blood Pressure Mean 119 119 Pulse Oximetry 95 Oxygen Delivery Method Sepsis Recent Fever Within 48 Hours Sepsis New/Unexplained Change in Mental Status Sepsis Action Taken by Nursing 01/08/25 07:45 01/08/25 07:45 01/08/25 07:51 Temperature Temperature Source Pulse Rate 88 84 Pulse Rate from SpO2 Sensor 87 79 Respiratory Rate 19 25 H Respiratory Effort / Characteristics Respiratory Depth Blood Pressure 134/86 Blood Pressure Mean 119 Pulse Oximetry 98 98 Oxygen Delivery Method Sepsis Recent Fever Within 48 Hours Sepsis New/Unexplained Change in Mental Status Sepsis Action Taken by Nursing Laboratory Data 01/08/25 01:40 01/08/25 01:40 Lab Results 01/08/25 01/08/25 Range/Units 01:40 02:10 WBC 10.23 (4.8-10.8) K/ul RBC 6.00 (4.70-6.10) M/uL Hgb 16.1 (14.0-18.0) g/dl Hct 51.1 (42.0-52.0) % MCV 85.2 (80.0-100.0) fL MCH 26.8 (25.0-34.0) pg MCHC 31.5 L (32.0-36.0) g/dL RDW Std Deviation 48.6 H (36.4-46.3) fL RDW Coeff of Kartik 16.3 H (11.5-14.5) % Plt Count 220 (130-400) K/uL MPV 10.6 (9.4-12.4) fL Immature Gran % (Auto) 0.6 % Neut % (Auto) 71.5 % Lymph % (Auto) 14.4 % [place] % (Auto) 11.1 % Eos % (Auto) 2.2 % Baso % (Auto) 0.2 % Neut # (Auto) 7.31 H (1.40-6.50) K/uL Lymph # (Auto) 1.47 (1.20-3.40) K/uL [place] # (Auto) 1.14 H (0.11-0.59) K/uL Eos # (Auto) 0.23 (0.00-0.50) K/uL Baso # (Auto) 0.02 (0.00-0.20) K/uL Immature Gran # (Auto) 0.06 (0.01-0.20) K/uL ESR 42 H (0-20) mm/hr Sodium 136 (136-145) mmol/L Potassium 4.4 (3.5-5.1) mmol/L Chloride 106 (98-107) mmol/L Carbon Dioxide 23 (21-32) mmol/L Anion Gap 7 (3-11) BUN 18 (6-23) mg/dl Creatinine 1.31 (0.6-1.4) mg/dl Est Cr Clr Drug Dosing 62.1 ml/min eGFR 56.06 BUN/Creatinine Ratio 13.7 (10-20) Glucose 121 H (70-99(Fasting)) mg/dl Calcium 10.1 (8.6-10.3) mg/dl Magnesium 1.9 (1.7-2.4) mg/dl Total Bilirubin 0.6 (0.2-1.0) mg/dl AST 18 (13-39) U/L ALT 18 (7-52) U/L Alkaline Phosphatase 67 (34-104) U/L C-Reactive Protein 3.97 H (0-0.5) mg/dl Total Protein 7.1 (6.0-8.3) gm/dl Albumin 4.0 (3.4-5.0) gm/dl Globulin 3.1 (2.5-4.0) gm/dl Albumin/Globulin Ratio 1.3 (0.9-2) TSH 2.703 (0.300-4.500) uIu/ml Urine Color Yellow Urine Appearance Clear (Clear) Urine pH 5.5 (4.5-7.5) Ur Specific [place] 1.029 (1.000-1.030) Urine Protein 1+ H (Negative) Urine Glucose (UA) 3+ H (Negative) Urine Ketones Trace H (Negative) Urine Blood Negative (Negative) Urine Nitrite Negative (Negative) Urine Bilirubin Negative (Negative) Urine Urobilinogen Negative (Negative) Ur Leukocyte Esterase Negative (Negative) Urine WBC (Auto) 0-5 (0-5) /hpf Urine RBC (Auto) 6-10 H (0-2) /hpf U Hyaline Cast (Auto) 0-2 (0-2) /lpf U Epithel Cells (Auto) 0-2 (0-2) /hpf Urine Bacteria (Auto) None Seen (None Seen) Adenovirus (PCR) Not Detected (NotDetected) B. pertussis DNA (PCR) Not Detected (NotDetected) B.parapertussis DNA PCR Not Detected (NotDetected) Lyme Disease Screen Negative (Negative) C. pneumoniae DNA (PCR) Not Detected (NotDetected) Coronavirus OC43 (PCR) Not Detected (NotDetected) Coronavirus HKU1 (PCR) Not Detected (NotDetected) Coronavirus 229E (PCR) Not Detected (NotDetected) SARS-CoV-2 (PCR) Not Detected (NotDetected) Coronavirus NL63 (PCR) Not Detected (NotDetected) Human Metapneumovir PCR Not Detected (NotDetected) Influenza Type A (PCR) Not Detected (NotDetected) Influenza Type B (PCR) Not Detected (NotDetected) M. pneumoniae (PCR) Not Detected (NotDetected) Parainfluenza 1 (PCR) Not Detected (NotDetected) Parainfluenza 2 (PCR) Not Detected (NotDetected) Parainfluenza 3 (PCR) Not Detected (NotDetected) Parainfluenza 4 (PCR) Not Detected (NotDetected) RSV (PCR) Not Detected (NotDetected) Entero/Rhino (PCR) Not Detected (NotDetected) Administered Medications Atorvastatin Calcium (Atorvastatin 40 Mg Tab) 80 mg PO [facility] Stop: 02/07/25 09:53 Last Admin: 01/08/25 10:31 Dose: 80 mg Documented By: KRISTYN Bupropion HCl (Bupropion Sr 100 Mg Tabcr) 100 mg PO BID [facility] Stop: 02/07/25 09:53 Last Admin: 01/08/25 20:29 Dose: 100 mg Documented By: Admin: 01/08/25 10:32 Dose: 100 mg Documented By: KRISTYN Cinacalcet (Cinacalcet Hcl 30 Mg Tab) 30 mg PO [facility] Stop: 02/07/25 15:29 Last Admin: 01/08/25 16:29 Dose: 30 mg Documented By: DAHLIA Clopidogrel Bisulfate (Clopidogrel [facility]ulfate 75 Mg Tab) [facility]: 02/07/25 09:53 Last Admin: 01/08/25 10:31 Dose: 75 mg Documented By: KRISTYN Cyanocobalamin (Cyanocobalamin (B-12) 500 Mcg Tablet) 1,000 [facility] [place]: 02/07/25 09:53 Last Admin: 01/08/25 10:31 Dose: 1,000 mcg Documented By: KRISTYN Diphenhydramine HCl (Diphenhydramine 50 Mg/Ml Vial) 25 mg IV Q6H PRN PRN Reason: migraine headache Stop: 02/07/25 10:15 Last Admin: 01/08/25 12:55 Dose: 25 mg Documented By: DAHLIA Empagliflozin (Empagliflozin 10 Mg Tab) 10 mg PO QAM [facility] Stop: 02/07/25 09:53 Last Admin: 01/08/25 10:32 Dose: 10 mg Documented By: KRISTYN Enoxaparin Sodium (Enoxaparin Inj 40 Mg/0.4 Ml Syr) 40 mg SQ QAM [facility] Stop: 02/07/25 10:14 Last Admin: 01/08/25 10:32 Dose: 40 mg Documented By: KRISTYN Famotidine (Famotidine 40 Mg Tablet) 40 mg PO PM MORE Stop: 02/07/25 20:59 Last Admin: 01/08/25 20:29 Dose: 40 mg Documented By: MRALENI Insulin Aspart (Insulin Aspart Per Unit Charge) 0 units SC ACHS [facility] Stop: 02/07/25 11:29 Last Admin: 01/08/25 20:28 Dose: Not Given Documented By: Admin: 01/08/25 17:19 Dose: 2 units Documented By: DAHLIA Co-signed By: [place] Admin: 01/08/25 11:50 Dose: Not Given Documented By: MR Lorazepam (Lorazepam 2 Mg/1 Ml Vial) 1 mg IV DAILY PRN PRN Reason: prior to MRI Stop: 02/07/25 10:09 Last Admin: 01/08/25 13:33 Dose: 1 mg Documented By: DAHLIA Metoclopramide HCl (Metoclopramide Hcl Inj 5 Mg/Ml 2 Ml Vial) 10 mg IV Q6H PRN PRN Reason: migraine headache Stop: 02/07/25 10:29 Last Admin: 01/08/25 12:56 Dose: 10 mg Documented By: DAHLIA Metoprolol Succinate (Metoprolol Succ 25mg Ext Rel Tab) [facility] [place]: 02/07/25 09:53 Last Admin: 01/08/25 10:31 Dose: 25 mg Documented By: KRISTYN Pantoprazole Sodium (Pantoprazole 40 Mg Tab) [facility] [place]: 02/07/25 09:53 Last Admin: 01/08/25 10:31 Dose: 40 mg Documented By: KRISTYN Sertraline HCl (Sertraline Hcl 100 Mg Tablet) 200 mg PO [facility] Stop: 02/07/25 09:53 Last Admin: 01/08/25 10:32 Dose: 200 mg Documented By: KRISTYN Thiamine HCl (Thiamine Hcl 100 Mg Tab) 100 mg PO QAM MORE Stop: 02/07/25 09:53 Last Admin: 01/08/25 10:32 Dose: 100 mg Documented By: KRISTYN Vitamin D (Cholecalciferol 25 Mcg (1000 Units) Tab) 75 mcg PO DAILY MORE Stop: 02/07/25 09:53 Last Admin: 01/08/25 10:32 Dose: 75 mcg Documented By: KRISTYN Discontinued Medications Gadobutrol (Gadobutrol 65ml Vial) 11.5 ml IV ONCE ONE Stop: 01/08/25 14:54 Last Admin: 01/08/25 14:54 Dose: 11.5 ml Documented By: CORINNE Sodium Chloride (Nss) 1,000 mls @ 125 mls/hr IV .Q8H MORE Stop: 01/09/25 01:59 Last Infusion: 01/08/25 17:49 Dose: Infused Documented By: Admin: 01/08/25 11:54 Dose: 125 mls/hr Documented By: Infusion: 01/08/25 11:48 Dose: Infused Documented By: Admin: 01/08/25 02:25 Dose: 125 mls/hr Documented By: ARIADNE Acetaminophen (Ofirmev) 1,000 mg in 100 mls @ 400 mls/hr IV NOW STA Stop: 01/08/25 03:40 Last Infusion: 01/08/25 03:58 Dose: Infused Documented By: Admin: 01/08/25 03:38 Dose: 400 mls/hr Documented By: ARIADNE Magnesium Sulfate/Dextrose (Magnesium Sulfate / D5w) 1 gm in 100 mls @ 100 mls/hr IV NOW STA Stop: 01/08/25 04:25 Last Infusion: 01/08/25 04:46 Dose: Infused Documented By: Admin: 01/08/25 03:45 Dose: 100 mls/hr Documented By: ARIADNE Valproic Acid 500 mg/ Dextrose 55 mls @ 55 mls/hr IV NOW STA Stop: 01/08/25 06:05 Last Infusion: 01/08/25 06:38 Dose: Infused Documented By: Admin: 01/08/25 05:31 Dose: 55 mls/hr Documented By: ARIADNE Ioversol (Optiray 320 125ml) 112 ml IV ONCE ONE Stop: 01/08/25 08:05 Last Admin: 01/08/25 08:05 Dose: 112 ml Documented By: SHEYLA Ondansetron HCl (Ondansetron Inj 2 Mg/Ml 2 Ml Vial) 4 mg IV NOW STA Stop: 01/08/25 03:27 Last Admin: 01/08/25 03:38 Dose: 4 mg Documented By: ARIADNE Imaging Data Radiologist's Impression: Chest X-Ray 01/08/25 01:43 EXAM: XR chest 1V portable CLINICAL HISTORY: weakness. TECHNIQUE: A portable X-ray image of the chest is obtained in AP projection. COMPARISON: 10/20/2024 X-ray. FINDINGS: Pulmonary Parenchyma: Poor inspiration. Lungs show prominent perihilar bronchovascular markings bilaterally. No evidence of consolidation, collapse, or focal opacities. No pulmonary nodules are identified. No evidence of pleural effusion or pleural thickening. Heart and Mediastinum: Heart size and shape are normal. No mediastinal widening or masses. No hilar or mediastinal lymphadenopathy. Bony Thorax: Bony thorax appears intact without fractures or deformities. Soft Tissues: Soft tissues overlying the chest wall are unremarkable. IMPRESSION: 1. Prominent perihilar bronchovascular markings, no interval changes. 2. No acute cardiopulmonary abnormalities are identified. Electronically signed by Tyler Reyna 01-08-2025 02:[address] 01/08/25 02:01 EXAM: CT head/brain wo con CLINICAL HISTORY: bowers, weakness TECHNIQUE: Multiple axial images are obtained from the skull base to the vertex without contrast. CT scan was performed according to ALARA (as low as reasonable achievable). COMPARISON: . None FINDINGS: There is cerebral atrophy. No evidence of space occupying lesion, hemorrhage, edema, mass effect, midline shift, extra axial collection, or hydrocephalus is noted. Basal cisterns are symmetric and normal in size and configuration. There are scattered periventricular hypodensities as can be seen with chronic microvascular ischemic changes. The neumann-white matter differentiation is preserved. Visualized paranasal sinuses and mastoid air cells are well aerated. Orbital contents are within normal limits. Bony structures are intact. IMPRESSION: 1. No evidence of acute intracranial abnormality is demonstrated. 2. Chronic microvascular ischemic changes. 3. Mild Cerebral atrophy. Electronically signed by Pola Stapleton 01-08-2025 03:20 AM KUB X-Ray 01/08/25 03:26 EXAM: XR KUB/Abdomen 1 view CLINICAL HISTORY: abd pain, n/v TECHNIQUE: Radiograph of kub/abdomen was acquired. COMPARISON: none FINDINGS: Non-obstructive, non-specific bowel gas pattern. No significant air fluid levels. No evidence of air under diaphragm. No obvious radio opacity overlying kidneys/ureters/urinary bladder. No obvious organomegaly. Bony shadows appear unremarkable. Bilateral prosthetic hip joints noted. IMPRESSION: 1. No acute abdominal abnormality. Electronically signed by Pola Stapleton 01-08-2025 05:15 AM Discharge Plan Visit Data Chief Complaint: Weakness Stated Complaint: TIA SYMPTOMS ED Provider: Hafsa Hi Discharge Problem: Headache, Abdominal pain, Nausea & vomiting Patient Disposition: Admitted As Inpatient Discharge Instructions Interventions: ED Discharge Assessment Last Done: 01/08/25 09:54 Discharge Problem: Headache Qualifiers: Headache type: other headache syndrome Qualified Code(s): G44.89 - Other headache syndrome
[2025-01-08 02:02] LABS: Appearance Urine Clear (Clear); Bacteria Urine Automated None Seen (None Seen); Bilirubin Urine Negative (Negative); Blood Urine Negative (Negative); Cast Urine Automated 0-2 /lpf (0-2); Color Urine Yellow; Epithelial Cell Urine Auto 0-2 /hpf (0-2); Glucose Urine UA 3+ (Negative); Ketones Urine Trace (Negative); Leukocyte Esterase Urine Negative (Negative); Nitrite Urine Negative (Negative); Protein Urine 1+ (Negative); Specific Gravity Urine 1.029 (1.000-1.030); Urobilinogen Urine Negative (Negative); WBC Urine Automated 0-5 /hpf (0-5); pH Urine 5.5 (4.5-7.5)
[2025-01-08 02:13] LABS: Albumin Globulin Ratio 1.3 (0.9-2); BUN Creatinine Ratio 13.7 (10-20); Bilirubin,Total 0.6 mg/dl (0.2-1.0); Calcium 10.1 mg/dl (8.6-10.3); Creatinine Clr Calc Pharmacy 62.1 ml/min; Globulin 3.1 gm/dl (2.5-4.0); Potassium 4.4 mmol/L (3.5-5.1); Total Protein 7.1 gm/dl (6.0-8.3)
[2025-01-08] MEDS: SODIUM CHLORIDE 0.9% 1,000 ML IV SCH (02:25)
[2025-01-08 02:28] LABS: Thyroid Stimulating Hormone 2.703 uIu/ml (0.300-4.500)
[2025-01-08 02:30] LABS: Magnesium 1.9 mg/dl (1.7-2.4)
--- NOTE | 2025-01-08 02:44 | XRay Report ---
EXAM: XR chest 1V portable CLINICAL HISTORY: weakness. TECHNIQUE: A portable X-ray image of the chest is obtained in AP projection. COMPARISON: 10/20/2024 X-ray. FINDINGS: Pulmonary Parenchyma: Poor inspiration. Lungs show prominent perihilar bronchovascular markings bilaterally. No evidence of consolidation, collapse, or focal opacities. No pulmonary nodules are identified. No evidence of pleural effusion or pleural thickening. Heart and Mediastinum: Heart size and shape are normal. No mediastinal widening or masses. No hilar or mediastinal lymphadenopathy. Bony Thorax: Bony thorax appears intact without fractures or deformities. Soft Tissues: Soft tissues overlying the chest wall are unremarkable. IMPRESSION: 1. Prominent perihilar bronchovascular markings, no interval changes. 2. No acute cardiopulmonary abnormalities are identified. Electronically signed by Tyler Reyna 01-08-2025 02:43 AM
[2025-01-08 03:13] LABS: Adenovirus PCR Not Detected (NotDetected); Bordetella parapertussis PCR Not Detected (NotDetected); Bordetella pertussis PCR Not Detected (NotDetected); Chlamydia pneumoniae PCR Not Detected (NotDetected); Coronavirus 229E PCR Not Detected (NotDetected); Coronavirus CoV-2 (COVID19)PCR Not Detected (NotDetected); Coronavirus HKU1 PCR Not Detected (NotDetected); Coronavirus NL63 PCR Not Detected (NotDetected); Coronavirus OC43PCR Not Detected (NotDetected); Human Metapneumovirus PCR Not Detected (NotDetected); Influenza A PCR Not Detected (NotDetected); Influenza B PCR Not Detected (NotDetected); Mycoplasma pneumoniae PCR Not Detected (NotDetected); Parainfluenza Virus 1 PCR Not Detected (NotDetected); Parainfluenza Virus 2 PCR Not Detected (NotDetected); Parainfluenza Virus 3 PCR Not Detected (NotDetected); Parainfluenza Virus 4 PCR Not Detected (NotDetected); Respiratory Syncytial VirusPCR Not Detected (NotDetected); Rhinovirus/Enterovirus PCR Not Detected (NotDetected)
--- NOTE | 2025-01-08 03:21 | CT Scan Report ---
EXAM: CT head/brain wo con CLINICAL HISTORY: bowers, weakness TECHNIQUE: Multiple axial images are obtained from the skull base to the vertex without contrast. CT scan was performed according to ALARA (as low as reasonable achievable). COMPARISON: . None FINDINGS: There is cerebral atrophy. No evidence of space occupying lesion, hemorrhage, edema, mass effect, midline shift, extra axial collection, or hydrocephalus is noted. Basal cisterns are symmetric and normal in size and configuration. There are scattered periventricular hypodensities as can be seen with chronic microvascular ischemic changes. The neumann-white matter differentiation is preserved. Visualized paranasal sinuses and mastoid air cells are well aerated. Orbital contents are within normal limits. Bony structures are intact. IMPRESSION: 1. No evidence of acute intracranial abnormality is demonstrated. 2. Chronic microvascular ischemic changes. 3. Mild Cerebral atrophy. Electronically signed by Pola Stapleton 01-08-2025 03:20 AM
[2025-01-08] MEDS: ONDANSETRON INJ 2 MG/ML 2 ML VIAL IV STA (03:38)
[2025-01-08] MEDS: ACETAMINOPHEN 1,000 MG/100 ML VIAL IV STA (03:38)
[2025-01-08] MEDS: MAGNESIUM SULFATE / D5W 1 GM/100 ML BAG IV STA (03:45)
--- NOTE | 2025-01-08 05:15 | XRay Report ---
EXAM: XR KUB/Abdomen 1 view CLINICAL HISTORY: abd pain, n/v TECHNIQUE: Radiograph of kub/abdomen was acquired. COMPARISON: none FINDINGS: Non-obstructive, non-specific bowel gas pattern. No significant air fluid levels. No evidence of air under diaphragm. No obvious radio opacity overlying kidneys/ureters/urinary bladder. No obvious organomegaly. Bony shadows appear unremarkable. Bilateral prosthetic hip joints noted. IMPRESSION: 1. No acute abdominal abnormality. Electronically signed by Pola Stapleton 01-08-2025 05:15 AM
[2025-01-08] MEDS: VALPROATE SOD 500 MG in DEXTROSE 5% 50 ML IV STA (05:31)
--- NOTE | 2025-01-08 07:15 | History & Physical Report ---
Date of Service January 08, 2025 Assessment & Plan (1) Headache: (2) Nausea & vomiting: (3) Primary hyperparathyroidism: (4) Ambulatory dysfunction: Plan This pt is a 79 yo male with a h/o primary hyperparathyroidism, TIA, vitamin D deficiency, DMII, HFpEF, thiamine deficiency, MCI, anxiety/depression, BPH, GERD, restrictive lung disease due to obesity, CKD stage III, HTN, RAMAN on 2 LNC at bedtime, provoked DVT, HLD, isolated monocytosis, peripheral neuropathy, and chronic headaches who presents to the ER with increasing frequency and severity of headaches with nausea/vomiting and difficulty with ambulation. #Headache/nausea/vomiting/ambulatory dysfunction-with 3 months of headache, now with increased frequency to 3 times a week- frontal/retro-orbital in nature associated with N/V, dizziness, and photophobia. He usually takes Tylenol or ibuprofen and lays in a dark room until they go away. He has been more off balance than baseline. He also has some chronic intermittent abdominal pain which has been worked up without etiology found. No new focal deficits. CT of the head was negative; workup for infection to include respiratory BioFire panel, UA, CBC normal and afebrile. CTA head and neck negative and, ESR modestly elevated at 42, CRP at 3 but does not seem significant for vasculitis. His ambulatory dysfunction has been ongoing and is likely related to peripheral neuropathy and general deconditioning. Headaches likely caused by primary hyperparathyroidism-PTH progressively increasing over the last few months to 156, calcium level in normal range at 10.1 currently. -Admit to medical unit with telemetry for arrhythmia monitoring -consult Neuro for eval for intractable headache -Check brain MRI -If MRI negative, pursue discussion with endocrinology about starting Sensipar for primary hyperparathyroidism -Try Reglan and Benadryl as needed for migraine headache. Can also give Tylenol as needed -Zofran or Compazine for nausea -Give 1 L of normal saline -Check Lyme disease titer #Primary hyperparathyroidism-known diagnosis and follows with endocrinology-PTH elevated further to 156 on labs from 2 weeks prior, calcium within normal range at 10.1. With progressing headaches, vague abdominal pains, and mood disorder all consistent with symptoms of primary hyperparathyroidism -Start Sensipar if MRI brain neg for other cause of headache -check calcium and PTH level in 1 week -f/u with Endocrine after discharge #History of TIA/MCI-with a h/o TIA and on Plavix, statin. 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 He has lost a lot of weight since starting on Ozempic -Novolog SSI here -check A1C in AM -continue Jardiance 3x/week #HTN/HLD/HFpEF-no acute issues -continue home BP meds, statin -no longer taking torsemide as leg swelling improved with large amount of weight loss #Anxiety/depression-recently started on wellbutrin and sertraline for mood issues a few months ago. COuld be related to primary hyperpara. -continue wellbutrin, sertraline, and buspar #Thiamine deficiency/vitamin D and B12 deficiency-continue Vit D, B12, and thiamine replacement DVT prophylaxis-SCDs Disposition-admit to medical floor with telemetry, PT/OT consults placed to see if needs rehab History of Present Illness Chief Complaint: Headache Primary Care Provider: Melissa Frazier MD This pt is a 79 yo male with a h/o primary hyperparathyroidism, TIA, vitamin D deficiency, DMII, HFpEF, thiamine deficiency, MCI, anxiety/depression, BPH, GERD, restrictive lung disease due to obesity, CKD stage III, HTN, RAMAN on 2 LNC at bedtime, provoked DVT, HLD, isolated monocytosis, peripheral neuropathy, and chronic headaches who presents to the ER with increasing frequency and severity of his headaches and increasing mild confusion. He has been now having headaches 3 times a week that are frontal/retro-orbital in nature associated with nausea/vomiting and some dizziness and photophobia. Headache started about 3 months ago and are increasing in frequency and severity. He usually takes Tylenol or ibuprofen and lays in a dark room until they go away. He has been more off balance than baseline. He also has some chronic intermittent abdominal pain which has been worked up without etiology found. No new focal deficits today. CT of the head was negative in the ER as well as workup for infection to include respiratory BioFire panel. He was given IV Tylenol, IV magnesium, IV fluids, IV Zofran, and 1 dose of IV Depakote. He took an NSAID at home prior to arrival. He had no relief of his headache and nausea. Neurology was contacted by the ED physician who recommended a CTA head and neck, ESR, CRP, and recommended admission for further neurological evaluation and treatment. Allergies Allergy/AdvReac Type Severity Reaction Status Date / Time adhesive tape Allergy Mild Redness of Verified 01/08/25 01:55 Skin Iodinated Contrast Media AdvReac Intermediate Gastrointestinal Verified 01/08/25 01:55 Upset iodine AdvReac Unknown "iodine Verified 01/08/25 01:55 solution caused unknown" Home Medications Medication Instructions Recorded Confirmed Type empagliflozin 10 mg tablet 10 mg PO QAM #30 tabs 01/22/22 01/08/25 Rx (Jardiance) Oxygen Home #1 ea 05/31/22 12/24/24 Rx pen needle, diabetic 31 gauge x #200 ea 06/13/22 12/24/24 Rx 5/16" (BD Ultra-Fine Short Pen Needle) Shower Chair #1 ea 02/15/23 12/24/24 Rx diclofenac sodium 1 % topical gel 4 g topical QID PRN Pain 01/20/24 01/08/25 History (Voltaren Arthritis Pain) torsemide 100 mg tablet 50 mg (1/2 x 100 mg) PO QAM PRN 07/23/24 01/08/25 Rx Weight gain or leg swelling #15 tabs atorvastatin 80 mg tablet 80 mg PO QAM 08/03/24 01/08/25 History bupropion HCl 100 mg tablet,12 hr 100 mg PO BID #30 ea 08/12/24 01/08/25 Rx sustained-release (Wellbutrin SR) cyanocobalamin (vitamin B-12) 1,000 mcg PO QAM 09/10/24 01/08/25 History 1,000 mcg tablet metoprolol succinate 25 mg 25 mg PO QAM 09/10/24 01/08/25 History tablet,extended release 24 hr sertraline 100 mg tablet 200 mg PO QAM 09/10/24 01/08/25 History thiamine HCl (vitamin B1) 100 mg 100 mg PO QAM #0 tabs 09/14/24 01/08/25 Rx tablet famotidine 40 mg tablet 40 mg PO PM #90 tabs 09/18/24 01/08/25 Rx pantoprazole 40 mg tablet,delayed 40 mg PO QAM #90 tabs 09/18/24 01/08/25 Rx release semaglutide 2 mg/dose (8 mg/3 mL) 2 mg (0.75 mL) subcut WK #3 mL 09/30/24 01/08/25 Rx subcutaneous pen injector (Ozempic) flash glucose scanning reader #1 ea 10/14/24 12/24/24 Rx (FreeStyle Shlomo 2 [place]) flash glucose sensor (FreeStyle #2 KITS 10/14/24 12/24/24 Rx Shlomo 2 Sensor kit) ondansetron 4 mg disintegrating 4 - 8 mg (1 - 2 x 4 mg) PO Q6H PRN 10/20/24 01/08/25 Rx tablet nausea and vomiting #20 tabs blood-glucose meter,continuous #1 ea 11/11/24 12/24/24 Rx (Dexcom G6 Commercial Truck Driver) blood-glucose sensor (Dexcom G6 #3 ea 11/11/24 12/24/24 Rx Sensor device) blood-glucose transmitter (Dexcom #1 ea 11/11/24 12/24/24 Rx G6 Transmitter device) clopidogrel 75 mg tablet 75 mg PO QAM #30 tabs 12/12/24 01/08/25 Rx cholecalciferol (vitamin D3) 25 75 mcg PO DAILY 01/08/25 01/08/25 History mcg (1,000 unit) capsule (Vitamin D3) nystatin 100,000 unit/gram topical 1 applic topical BID PRN Skin 01/08/25 01/08/25 History powder Irritation Past Med/Surg History Problem List Nausea & vomiting (Acute) Abdominal pain (Acute) Headache (Acute) Erectile dysfunction (Chronic) Thiamine deficiency Contusion of knee (Acute) Ambulatory dysfunction (Acute) Primary hyperparathyroidism H/O deep venous thrombosis 5+ yrs ago s/p fall Degenerative disc disease, cervical Left-sided weakness Hyperlipidemia TIA (transient ischemic attack) (Acute) Hypercalcemia Memory deficits Cervical spinal stenosis History of incision and drainage (06/04/24) Left Shoulder Abscess Incision and Drainage(Left) - Parminder Trotter, DO Type 2 diabetes mellitus Anxiety and depression Atherogenic dyslipidemia Q fever Weakness (Acute) Sepsis (Acute) Hypertension Leukocytosis Shoulder pain, right Testicular nodule Restrictive cardiomyopathy GERD (gastroesophageal reflux disease) Complete rotator cuff tear of left shoulder (01/08/14) Obesity hypoventilation syndrome Chronic diastolic heart failure BPH (benign prostatic hyperplasia) Depression Obstructive sleep apnea Morbid obesity Constipation Trigeminal neuralgia of left side of face Lower back pain Neuropathy Lumbar radiculopathy Medical History Encounter for pre-operative examination Restrictive lung disease secondary to obesity CKD (chronic kidney disease) stage 3, GFR 30-59 ml/min History of septic arthritis History of pressure ulcer rt ankle stage 2 Right knee pain Hypoxia Degenerative disc disease Osteoarthritis BPH (benign prostatic hyperplasia) Hypertension Chronic diastolic heart failure, NYHA class 3 Nonobstructive atherosclerosis of coronary artery Pulmonary emphysema GERD (gastroesophageal reflux disease) Sleep apnea BIPAP Restrictive cardiomyopathy Surgical History History of open reduction and internal fixation (ORIF) procedure LEFT WRIST (HARDWARE REMOVED) 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) History of esophagogastroduodenoscopy (EGD) History of herniorrhaphy multiple History of tooth extraction History of cataract surgery RT/LEFT Difficult intubation "Elective" glidescope noted on 08/2018 [facility] record Status post total hip replacement, left History of colonoscopy History of arthroscopy RIGHT SHOULDER Hx of transurethral resection of prostate History of total knee replacement RIGHT/LEFT History of cardiac cath MULTIPLE (NO STENTS PLACED) MOST RECENT= 2018 S/P cholecystectomy Family History Mother , age 92 of a stroke Stroke Alzheimer disease Father , age 65 of a tree falling on him Accident, Onset Age: 65 Was in his yard cutting trees and a tree trunk fell and killed him Sister Breast cancer Daughter Brain tumor Denies family history of Ovarian cancer Prostate cancer Myocardial infarction Colorectal cancer Social History Smoking Status: Former smoker Tobacco Type: Cigarettes Age Started Using Tobacco: 18; Age Quit Using Tobacco: 30; packs per day: 1; Second Hand Exposure: Yes; Do You Dip or Chew Tobacco: No; Hx Alcohol Use: No Hx Substance Use: No Preferred Language: Dutch Communication Ability: Effective Visual Impairment: No Limitations Hearing Ability: Normal Interviewing Clerk Required: No Beliefs That Will Affect Care: Faith Faith Beliefs: none marital status: Current Living Situation: Spouse Current Living Situation Comment: lives at home with current occupational status: retired 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[employer], 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, 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 How many Children do You have: 2 Feels Safe at Home: Yes Childhood Exposure to Second-Hand Smoke: No Diet: regular Diet Comment: regular Dental Care, Regularly: Yes Physical Activity Frequency: Does not Exercise Seatbelt Use: sometimes Sunscreen Use: No Assistive Devices: Glasses and Walker Review of Systems Review of Systems: All systems reviewed & are unremarkable except as noted in HPI & below Physical Exam Constitutional: WD/WN, vitals as above Eyes: PERRL, conjunctivae normal, anicteric sclerae ENMT: external ear and nose normal, oropharynx normal Neck: trachea midline, no thyromegaly Respiratory: normal respiratory effort, lungs clear to auscultation Cardiovascular: RRR, no murmur, no edema Chest (Breasts): Chest: normal inspection of chest Gastrointestinal (Abdomen): normal bowel sounds, soft, nontender, no hepatosplenomegaly Musculoskeletal: Extremities: extremities normal to inspection; no cyanosis and no clubbing Skin: no rashes, warm and dry Neurologic: PERRL, EOMI, accommodation nl, no face palsy, no dysarthria CN's II-XI intact bilaterally, moves all extremities and awake; no focal motor deficits and not confused Speech / Cognition: normal speech Motor/Sensory: no tremor Coordination: normal [id number] test and normal rapid alternating movements Psychiatric: A+Ox3, euthymic affect Lymphatic: no lymphedema Results & Data Results & Data Vital Signs (Past 12 Hours) Vital Signs Temp Pulse Resp BP Pulse Ox O2 Del Method 01/08/25 07:00 119/79 01/08/25 06:15 87 23 154/94 H 91 01/08/25 06:09 93 H 19 95 01/08/25 06:05 95 H 01/08/25 05:30 87 20 109/70 92 01/08/25 05:15 90 21 112/64 94 03/26/25 05:00 122/81 01/08/25 04:45 116/69 01/08/25 04:45 116/69 01/08/25 04:30 100 H 21 126/80 94 Room Air 01/08/25 04:00 96 H 22 127/87 93 Room Air 01/08/25 03:45 105 H 24 143/81 H 97 Room Air 01/08/25 03:42 101 H 20 94 Room Air 01/08/25 03:36 105 H 26 H 95 Room Air 01/08/25 03:30 122/81 01/08/25 03:30 122/81 01/08/25 03:15 122/78 01/08/25 03:03 102 H 25 H 93 01/08/25 03:00 116/79 01/08/25 02:45 128/84 01/08/25 02:30 105/73 01/08/25 02:03 112 H 26 H 90 01/08/25 02:00 123/76 01/08/25 01:45 111/79 01/08/25 01:43 91 Room Air 01/08/25 01:42 117 H 30 H 90 01/08/25 01:40 120 H 01/08/25 01:40 90 Room Air 01/08/25 01:37 131/107 H 01/08/25 01:25 36.8 C 125 H 18 133/79 92 Room Air Laboratory Results CBC, CMP, ESR, CRP, TSH, UA, respiratory BioFire panel reviewed Diagnostic Findings CT head, CXR, KUB, CTA head and neck reviewed ECG Additional Comments: ECG on 01/08/2025 at 1:38 AM with sinus tachycardia, rate 117, RBBB, unchanged from previous Code Status & VTE Plan Code Status Full code VTE Prophylaxis Plan VTE Prophylaxis will be ordered: Yes PG Care Time/CCT Total # of Minutes Spent Total Time Spent with Patient: Total time spent is greater than 50% in coordination of care (as documented) at patient's floor/unit and/or counseling patient: Coding Level of Care Code 59176 INT INP/OBS CARE 3/75MIN Diagnoses Headache R51.9 Nausea & vomiting R11.2 Primary hyperparathyroidism E21.0 Ambulatory dysfunction R26.2
[2025-01-08 07:29] LABS: C Reactive Protein 3.97 mg/dl (0-0.5)
[2025-01-08] MEDS: OPTIRAY 320 125ml IV ONE (08:05)
--- NOTE | 2025-01-08 08:34 | CT Scan Report ---
CT angio head w con CLINICAL HISTORY: headache, off balance, hx cva. COMPARISON STUDY: 11/07/2024 TECHNIQUE: Unenhanced axial CT scan of the brain is performed. Subsequently, following the IV adminis tration of 112 cc of Optiray, CT angiogram of the brain was performed from the skull base to the vert ex. Images are reviewed in the axial, sagittal, and coronal planes. 3-D MIPS images are created and a ssessed. IV contrast was administered without complication. All measurements were obtained according to NASCET criteria. A dose lowering technique was utilized adhering to the principles of ALARA. CT DOSE: 535.66 mGy.cm FINDINGS: There are atherosclerotic calcifications distally at the internal carotid arteries. There i s stable minimal narrowing distally at the internal carotid arteries bilaterally. Right vertebral art rina is dominant. No significant narrowing seen at the distal vertebral arteries. Basilar artery is wi michael patent. Anterior, middle, and posterior cerebral arteries are patent bilaterally. Cerebral venou s sinuses opacify normally. IMPRESSION: No significant arterial narrowing or occlusion seen in the brain. ACT 112: Negative or not required by law. The above report was generated using voice recognition software. It may contain grammatical, syntax o r spelling errors. Electronically signed by: Ricky Leone M.D. 01/08/2025 8:32 AM
--- NOTE | 2025-01-08 08:43 | CT Scan Report ---
CT angio neck with con CLINICAL HISTORY: 79 years-old Male with headache, off balance, hx cva. COMPARISON STUDY: CTA of head of same day, CTA neck 08/03/2024 TECHNIQUE: Following the IV administration of 112 of Optiray, CT angiogram of the neck was performed from the aortic arch to the skull base. Images are reviewed in the axial, sagittal, and coronal plane s. 3-D MIPS images are created and assessed. IV contrast was administered without complication. All m easurements were calculated based on NASCET criteria. A dose lowering technique was utilized adherin g to the principles of ALARA. FINDINGS: Three-vessel morphology of the thoracic aortic arch. There is patency of the innominate and imaged chowdhury bclavian arteries. Atherosclerosis of the patent common carotid arteries. There is moderate atheroscl erotic plaque of the carotid bulbs causing less than 50% stenosis bilaterally. The vertebral arteries are codominant and widely patent. No aneurysm, dissection, high-grade stenosis or arterial occlusion identified. Head CT and CTA head dictated separately. Lung apices are clear. There is no pneumothorax. Unremarkable soft tissues. Degenerative changes of t he cervical spine without acute fracture identified. Sclerosis of the right clavicular head with medu llary expansion is unchanged. The medial aspects of the bones are demonstrated. IMPRESSION:Unremarkable CTA of the neck ACT 112: Negative or not required by law. The above report was generated using voice recognition software. It may contain grammatical, syntax o r spelling errors. Electronically signed by: Gurvinder Ritchie M.D. 01/08/2025 8:42 AM
--- NOTE | 2025-01-08 09:27 | Neurology Consultation ---
Date of Consultation January 08, 2025 Assessment & Plan (1) Headache: History of Present Illness Attending Physician: Deb Riddle MD History of Present Illness S: consulted for headache. pt this morning appears well rested and comfortable and sleeping comfortably. definitely not in distress or pain. CT head and CTA head/neck negative. pt already had consultation with Dr. Mejia (headache clinic provider) 2 days ago and has plan to see her in the headache clinic. chart reviewed. admission HPI: This pt is a 79 yo male with a h/o primary hyperparathyroidism, TIA, vitamin D deficiency, DMII, HFpEF, thiamine deficiency, MCI, anxiety/depression, BPH, GERD, restrictive lung disease due to obesity, CKD stage III, HTN, RAMAN on 2 LNC at bedtime, provoked DVT, HLD, isolated monocy tosis, peripheral neuropathy, and chronic headaches who presents to the ER with increasing frequency and severity of his headaches and increasing mild confusion. He has been now having headaches 3 times a week that are frontal/retro-orbital in nature associated with nausea/vomiting and some dizziness. He has been more off balance than baseline. He also has some chronic intermittent abdominal pain which has been worked up without etiology found. No new focal deficits today. CT of the head was negative in the ER as well as workup for infection to include respiratory BioFire panel. He was given IV Tylenol, IV magnesium, IV fluids, IV Zofran, and 1 dose of IV Depakote. He took an NSAID at home prior to arrival. He had no relief of his headache and nausea. Neurology was contacted by the ED physician who recommended a CTA head and neck, ESR, CRP, and recommended admission for further neurological evaluation and treatment. Allergies Allergy/AdvReac Type Severity Reaction Status Date / Time adhesive tape Allergy Mild Redness of Verified 01/08/25 01:55 Skin Iodinated Contrast Media AdvReac Intermediate Gastrointestinal Verified 01/08/25 01:55 Upset iodine AdvReac Unknown "iodine Verified 01/08/25 01:55 solution caused unknown" Home Medications Medication Instructions Recorded Confirmed Type empagliflozin 10 mg tablet 10 mg PO QAM #30 tabs 01/22/22 01/08/25 Rx (Jardiance) Oxygen Home #1 ea 05/31/22 12/24/24 Rx pen needle, diabetic 31 gauge x #200 ea 06/13/22 12/24/24 Rx 5/16" (BD Ultra-Fine Short Pen Needle) Shower Chair #1 ea 02/15/23 12/24/24 Rx diclofenac sodium 1 % topical gel 4 g topical QID PRN Pain 01/20/24 01/08/25 History (Voltaren Arthritis Pain) torsemide 100 mg tablet 50 mg (1/2 x 100 mg) PO QAM PRN 07/23/24 01/08/25 Rx Weight gain or leg swelling #15 tabs atorvastatin 80 mg tablet 80 mg PO QAM 08/03/24 01/08/25 History bupropion HCl 100 mg tablet,12 hr 100 mg PO BID #30 ea 08/12/24 01/08/25 Rx sustained-release (Wellbutrin SR) cyanocobalamin (vitamin B-12) 1,000 mcg PO QAM 09/10/24 01/08/25 History 1,000 mcg tablet metoprolol succinate 25 mg 25 mg PO QAM 09/10/24 01/08/25 History tablet,extended release 24 hr sertraline 100 mg tablet 200 mg PO QAM 09/10/24 01/08/25 History thiamine HCl (vitamin B1) 100 mg 100 mg PO QAM #0 tabs 09/14/24 01/08/25 Rx tablet famotidine 40 mg tablet 40 mg PO PM #90 tabs 09/18/24 01/08/25 Rx pantoprazole 40 mg tablet,delayed 40 mg PO QAM #90 tabs 09/18/24 01/08/25 Rx release semaglutide 2 mg/dose (8 mg/3 mL) 2 mg (0.75 mL) subcut WK #3 mL 09/30/24 01/08/25 Rx subcutaneous pen injector (Ozempic) flash glucose scanning reader #1 ea 10/14/24 12/24/24 Rx (FreeStyle Shlomo 2 [place]) flash glucose sensor (FreeStyle #2 KITS 10/14/24 12/24/24 Rx Shlomo 2 Sensor kit) ondansetron 4 mg disintegrating 4 - 8 mg (1 - 2 x 4 mg) PO Q6H PRN 10/20/24 01/08/25 Rx tablet nausea and vomiting #20 tabs blood-glucose meter,continuous #1 ea 11/11/24 12/24/24 Rx (Dexcom G6 Viscose Cellar Charge Hand) blood-glucose sensor (Dexcom G6 #3 ea 11/11/24 12/24/24 Rx Sensor device) blood-glucose transmitter (Dexcom #1 ea 11/11/24 12/24/24 Rx G6 Transmitter device) clopidogrel 75 mg tablet 75 mg PO QAM #30 tabs 12/12/24 01/08/25 Rx cholecalciferol (vitamin D3) 25 75 mcg PO DAILY 01/08/25 01/08/25 History mcg (1,000 unit) capsule (Vitamin D3) nystatin 100,000 unit/gram topical 1 applic topical BID PRN Skin 01/08/25 01/08/25 History powder Irritation Patient History Medical History Encounter for pre-operative examination Restrictive lung disease secondary to obesity CKD (chronic kidney disease) stage 3, GFR 30-59 ml/min History of septic arthritis History of pressure ulcer rt ankle stage 2 Right knee pain Hypoxia Degenerative disc disease Osteoarthritis BPH (benign prostatic hyperplasia) Hypertension Chronic diastolic heart failure, NYHA class 3 Nonobstructive atherosclerosis of coronary artery Pulmonary emphysema GERD (gastroesophageal reflux disease) Sleep apnea BIPAP Restrictive cardiomyopathy Surgical History History of open reduction and internal fixation (ORIF) procedure LEFT WRIST (HARDWARE REMOVED) 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) History of esophagogastroduodenoscopy (EGD) History of herniorrhaphy multiple History of tooth extraction History of cataract surgery RT/LEFT Difficult intubation "Elective" glidescope noted on 08/2018 [facility] record Status post total hip replacement, left History of colonoscopy History of arthroscopy RIGHT SHOULDER Hx of transurethral resection of prostate History of total knee replacement RIGHT/LEFT History of cardiac cath MULTIPLE (NO STENTS PLACED) MOST RECENT= 2018 S/P cholecystectomy Family History Mother , age 92 of a stroke Stroke Alzheimer disease Father , age 65 of a tree falling on him Accident, Onset Age: 65 Was in his yard cutting trees and a tree trunk fell and killed him Sister Breast cancer Daughter Brain tumor Denies family history of Ovarian cancer Prostate cancer Myocardial infarction Colorectal cancer Social History Smoking Status: Never smoker Tobacco Type: Cigarettes Age Started Using Tobacco: 18; Age Quit Using Tobacco: 30; packs per day: 1; Second Hand Exposure: No; Do You Dip or Chew Tobacco: No; Hx Alcohol Use: No Hx Substance Use: No Preferred Language: Icelandic Communication Ability: Effective Visual Impairment: No Limitations Hearing Ability: Normal Model Maker Apprentice Required: No Beliefs That Will Affect Care: None marital status: Current Living Situation: Spouse Current Living Situation Comment: lives at home with current occupational status: retired 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[employer], 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, 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 How many Children do You have: 2 Feels Safe at Home: Yes Childhood Exposure to Second-Hand Smoke: No Diet: regular Diet Comment: regular Dental Care, Regularly: Yes Physical Activity Frequency: Does not Exercise Seatbelt Use: sometimes Sunscreen Use: No Assistive Devices: Cane, Oxygen - at Night and Walker Exam (Neuro) Physical Exam: HEENT: normocephalic grossly Neuro: Mental: AOx4, fluent speech, normal comprehension, no apraxia, no L/R confusion, no neglect CN: PERRL, Full EOM, symmetric face, midline T/U/P, grossly full ROM neck Motor: No abnormal movements, normal tone, 5/5 t/o bilaterally Coord: intact FNT b/l DTR: 2+ sym b/l Impression: 79 yo male with subjective reporting of headache, likely migraine without aura attacks in setting of RAMAN, depression, constipation, back pain etc. Pt is clinically NOT in distress. Normal neuro exam. Not suspecting vascular event. his anxiety/depression likely contributing also. his chronic RAMAN/sleep issues likely also contributing. Recommendations: no further neuro work up needed at this point. zofran prn for nausea. IV fluid and hydration will help with headache also. can try Ubrlevy or Nurtec prn as abortive he has follow up already planned with Dr. Mejia at the headache clinic. no further imaging needed from neurology. will sign off. call again if new question. Chart reviewed I have spent more than 50% educating patient about potential diagnosis and neurological evaluation and coordinating care with patient's treatment team. Total time spent (including chart review and coordination of care): 45 min (this includes chart review). Results & Data Vital Signs (Past 12 Hours) Vital Signs Temp Pulse Resp BP Pulse Ox O2 Del Method 01/08/25 08:31 138/89 01/08/25 08:31 138/89 01/08/25 08:31 138/89 01/08/25 08:30 88 18 95 01/08/25 08:24 89 22 97 01/08/25 08:20 169/82 H 01/08/25 08:20 169/82 H 01/08/25 08:20 169/82 H 01/08/25 08:20 169/82 H 01/08/25 08:20 169/82 H 01/08/25 07:51 84 25 H 98 01/08/25 07:45 88 19 98 01/08/25 07:45 134/86 01/08/25 07:45 134/86 01/08/25 07:45 134/86 01/08/25 07:33 79 23 95 01/08/25 07:30 113/94 01/08/25 07:30 113/94 01/08/25 07:30 113/94 01/08/25 07:30 113/94 01/08/25 07:24 82 26 H 94 01/08/25 07:15 121/71 01/08/25 07:15 121/71 01/08/25 07:15 121/71 01/08/25 07:15 121/71 01/08/25 07:00 119/79 01/08/25 07:00 119/79 01/08/25 07:00 119/79 01/08/25 07:00 119/79 01/08/25 07:00 119/79 01/08/25 07:00 119/79 01/08/25 06:15 87 23 154/94 H 91 01/08/25 06:09 93 H 19 95 01/08/25 06:05 95 H 01/08/25 05:30 87 20 109/70 92 01/08/25 05:15 90 21 112/64 94 01/08/25 05:00 122/81 01/08/25 04:45 116/69 01/08/25 04:45 116/69 01/08/25 04:30 100 H 21 126/80 94 Room Air 01/08/25 04:00 96 H 22 127/87 93 Room Air 01/08/25 03:45 105 H 24 143/81 H 97 Room Air 01/08/25 03:42 101 H 20 94 Room Air 01/08/25 03:36 105 H 26 H 95 Room Air 01/08/25 03:30 122/81 01/08/25 03:30 122/81 01/08/25 03:15 122/78 01/08/25 03:03 102 H 25 H 93 01/08/25 03:00 116/79 01/08/25 02:45 128/84 01/08/25 02:30 105/73 01/08/25 02:03 112 H 26 H 90 01/08/25 02:00 123/76 01/08/25 01:45 111/79 01/08/25 01:43 91 Room Air 01/08/25 01:42 117 H 30 H 90 01/08/25 01:40 120 H 01/08/25 01:40 90 Room Air 01/08/25 01:37 131/107 H 01/08/25 01:25 36.8 C 125 H 18 133/79 92 Room Air PG Care Time/CCT Total # of Minutes Spent Total Time Spent with Patient: Total time spent is greater than 50% in coordination of care (as documented) at patient's floor/unit and/or counseling patient: Coding Level of Care Code 58384 IN/OBS CONSULT LVL 3,45M Diagnoses Other headache syndrome G44.89 Headache type: other headache syndrome (1) Headache Headache type: other headache syndrome Qualified Code(s): G44.89 - Other headache syndrome
[2025-01-08] MEDS ORDERED: CARBOHYDRATES FOR HYPOGLYCEMIA PO PRN (09:54)
[2025-01-08] MEDS ORDERED: DEXTROSE 50% 50 ML SYRINGE IV PRN (09:54)
[2025-01-08] MEDS ORDERED: ONDANSETRON INJ 2 MG/ML 2 ML VIAL IV PRN (09:54)
[2025-01-08] MEDS ORDERED: POLYETHYLENE (MIRALAX) 17 GM PACK PO PRN (09:54)
[2025-01-08] MEDS ORDERED: GLUCAGON FOR INJ 1 MG VIAL SQ PRN (09:54)
[2025-01-08] MEDS ORDERED: GLUCOSE 40% GEL 15 GM TUBE PO PRN (09:54)
[2025-01-08] MEDS ORDERED: GLUCOSE 10 TAB/TUBE PO PRN (09:54)
[2025-01-08] MEDS: CYANOCOBALAMIN (B-12) 500 MCG TABLET PO SCH (10:31)
[2025-01-08] MEDS: CLOPIDOGREL BISULFATE 75 MG TAB PO SCH (10:31)
[2025-01-08] MEDS: PANTOprazole 40 MG TAB PO SCH (10:31)
[2025-01-08] MEDS: ATORVASTATIN 40 MG TAB PO SCH (10:31)
[2025-01-08] MEDS: METOPROLOL SUCC 25MG EXT REL TAB PO SCH (10:31)
[2025-01-08] MEDS: THIAMINE HCL 100 MG TAB PO SCH (10:32)
[2025-01-08] MEDS: ENOXAPARIN INJ 40 MG/0.4 ML SYR SQ SCH (10:32)
[2025-01-08] MEDS: SERTRALINE HCL 100 MG TABLET PO SCH (10:32)
[2025-01-08] MEDS: EMPAGLIFLOZIN 10 MG TAB PO SCH (10:32)
[2025-01-08] MEDS: buPROPion SR 100 MG TABCR PO SCH (10:32)
[2025-01-08] MEDS: CHOLECALCIFEROL 25 MCG (1000 UNITS) TAB PO SCH (10:32)
--- NOTE | 2025-01-08 10:42 | Electrocardiogram Report ---
Test Reason : Blood Pressure : */* mmHG Vent. Rate : 117 BPM Atrial Rate : 117 BPM P-R Int : 158 ms QRS Dur : 116 ms QT Int : 316 ms P-R-T Axes : 25 -26 24 degrees QTcB Int : 440 ms Sinus tachycardia Right bundle branch block Abnormal ECG When compared with ECG of 07-Nov-2024 17:40, Premature atrial complexes are no longer Present T wave inversion now evident in Anterior leads Confirmed by Vasquez Klein ([id number]) on 01/08/2025 10:42:28 AM Referred By: REFERRED SELF Confirmed By: Vasquez Klein
[2025-01-08] MEDS: INSULIN ASPART PER UNIT CHARGE SC SCH (11:50)
[2025-01-08] MEDS: diphenhydrAMINE 50 MG/ML VIAL IV PRN (12:55)
[2025-01-08] MEDS: METOCLOPRAMIDE HCL INJ 5 MG/ML 2 ML VIAL IV PRN (12:56)
[2025-01-08] MEDS: LORazepam 2 MG/1 ML VIAL IV PRN (13:33)
[2025-01-08] MEDS: GADOBUTROL 65ML VIAL IV ONE (14:54)
--- NOTE | 2025-01-08 15:21 | Magnetic Resonance Report ---
MR brain wo/w con HISTORY: 79 years-old Male Imbalance, worsening headaches acute headache COMPARISON: CTA head of same day, brain MRI 08/05/2024 TECHNIQUE: Multiplanar multisequence MRI of the brain was obtained with and without IV contrast. FINDINGS: Motion degraded exam. No restricted diffusion identified on this motion degraded study. The midline s tructures appear unremarkable. Degenerative changes of the cervical spine. No acute intracranial hemo rrhage, midline shift, abnormal extra-axial collection, hydrocephalus or intra-axial mass. Involution al changes with mild to moderate patchy T2/FLAIR hyperintense foci throughout the white matter sugges tive of chronic microvascular ischemic disease. The cerebral venous sinuses and major arterial flow voids appear patent. Prior bilateral lens repair. Mastoid air cells and paranasal sinuses appear clear. No abnormal enhancement identified. IMPRESSION: 1. Motion degraded exam without acute intracranial abnormality identified, specifically no acute or s ubacute infarct is seen. 2. Involutional changes with chronic microvascular ischemic disease. 3. No abnormal enhancement. ACT 112: Negative or not required by law. The above report was generated using voice recognition software. It may contain grammatical, syntax o r spelling errors. Electronically signed by: Gurvinder Ritchie M.D. 01/08/2025 3:20 PM
[2025-01-08] MEDS: CINACALCET HCL 30 MG TAB PO SCH (16:29)
[2025-01-08] MEDS: FAMOTIDINE 40 MG TABLET PO SCH (20:29)
[2025-01-09 06:26] LABS: Basophils # (auto) 0.03 K/uL (0.00-0.20); Basophils % (auto) 0.3 %; Eosinophils # (auto) 0.33 K/uL (0.00-0.50); Eosinophils % (auto) 3.8 %; Hemoglobin 14.2 g/dl (14.0-18.0); Immature Granulocytes # (auto) 0.05 K/uL (0.01-0.20); Immature Granulocytes % (auto) 0.6 %; Lymphocytes # (auto) 2.39 K/uL (1.20-3.40); Lymphocytes % (auto) 27.8 %; Mean Corpuscular Hgb Conc 31.6 g/dL (32.0-36.0); Mean Corpuscular Volume 85.7 fL (80.0-100.0); Mean Platelet Volume 10.9 fL (9.4-12.4); Monocytes # (auto) 1.26 K/uL (0.11-0.59); Monocytes % (auto) 14.7 %; Neutrophils # (auto) 4.53 K/uL (1.40-6.50); Neutrophils % (auto) 52.8 %; Platelet Count 200 K/uL (130-400); RDW Coefficient of Variation 15.9 % (11.5-14.5); RDW Standard Deviation 49.5 fL (36.4-46.3); Red Blood Count 5.25 M/uL (4.70-6.10); White Blood Count 8.59 K/ul (4.8-10.8)
[2025-01-09 06:56] LABS: BUN Creatinine Ratio 13.1 (10-20); Calcium 9.3 mg/dl (8.6-10.3); Creatinine Clr Calc Pharmacy 62.1 ml/min; Potassium 4.2 mmol/L (3.5-5.1)
[2025-01-09 07:29] LABS: Estimated Average Glucose 108 mg/dl; Hemoglobin A1C 5.4 % (4.5-5.6)
--- NOTE | 2025-01-09 16:24 | Hospitalist Progress Note ---
Date of Service January 09, 2025 Assessment & Plan (1) Headache: (2) Nausea & vomiting: (3) Primary hyperparathyroidism: (4) Ambulatory dysfunction: Plan This pt is a 79 yo male with a h/o primary hyperparathyroidism, TIA, vitamin D deficiency, DMII, HFpEF, thiamine deficiency, MCI, anxiety/depression, BPH, GERD, restrictive lung disease due to obesity, CKD stage III, HTN, RAMAN on 2 LNC at bedtime, provoked DVT, HLD, isolated monocytosis, peripheral neuropathy, and chronic headaches who presents to the ER with increasing frequency and severity of headaches with nausea/vomiting and difficulty with ambulation. #Headache/nausea/vomiting/ambulatory dysfunction-with 3 months of headache, now with increased frequency to 3 times a week- frontal/retro-orbital in nature associated with N/V, dizziness, and photophobia. He usually takes Tylenol or ibuprofen and lays in a dark room until they go away. He has been more off balance than baseline. He also has some chronic intermittent abdominal pain which has been worked up without etiology found. No new focal deficits. CT of the head was negative; workup for infection to include respiratory BioFire panel, UA, CBC normal and afebrile. CTA head and neck negative and, ESR modestly elevated at 42, CRP at 3 but does not seem significant for vasculitis. His ambulatory dysfunction has been ongoing and is likely related to peripheral neuropathy and general deconditioning. MRI brain with contrast is negative. Lyme titer negative Headaches likely caused by primary hyperparathyroidism-PTH progressively increasing over the last few months to 156, calcium level in normal range at 10.1 Nausea is improving but headache persists. Neurology consult recommends treatment for migraines. -I discussed with endocrinology about starting Sensipar for primary hyperparathyroidism-continue Sensipar 30 mg p.o. daily -Continue Tylenol as needed for headache-will avoid Benadryl given ongoing confusion -Zofran or Compazine for nausea -Hopefully headaches will improve with Sensipar #Primary hyperparathyroidism-known diagnosis and follows with endocrinology-PTH elevated further to 156 on labs from 2 weeks prior, calcium within normal range at 10.1. With progressing headaches, vague abdominal pains, and mood disorder all consistent with symptoms of primary hyperparathyroidism-Started Sensipar 30 mg daily. Calcium level down to 9.3 -check calcium and PTH level in 1 week after discharge -f/u with Endocrine after discharge #Acute encephalopathy-patient with underlying mild cognitive impairment and now with some hospital delirium, possibly toxic encephalopathy from receiving Ativan and Benadryl yesterday for claustrophobia with MRI and for migraines, respectively -Supportive care, keep blinds open and keep him awake during the day -Avoid further Benadryl or Ativan #Constipation-patient did have 3 loose stools on 01/08 but no complaints of constipation -Add MiraLAX daily and docusate twice daily #History of TIA/MCI-with a h/o TIA and on Plavix, statin. MRI brain with contrast on 01/08 negative for new or old stroke. 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 Received IV fluids but now is tolerating regular diet -follow BMP -renally dose meds and avoid nephrotoxins #Restrictive lung disease due to obesity/RAMAN on 2L NC O2 at bedtime- no acute issues -continue 2LNC O2 hs #DM2/peripheral neuropathy-no acute issues, last A1C well controlled at 5.6% in 09/2024. He has lost a lot of weight since starting on Ozempic. HgbA1c remains normal at 5.4% -Continue Novolog SSI here at needed -continue Jardiance 3x/week #HTN/HLD/HFpEF-no acute issues -continue home BP meds, statin -no longer taking torsemide as leg swelling improved with large amount of weight loss #Anxiety/depression-recently started on wellbutrin and sertraline for mood issues a few months ago. COuld be related to primary hyperpara. -continue wellbutrin, sertraline, and buspar #Thiamine deficiency/vitamin D and B12 deficiency-continue Vit D, B12, and thiamine replacement DVT prophylaxis-SCDs Disposition-continued stay on medical floor with telemetry, PT/OT consults recommend rehab-patient is wary that he will be placed in a intermediate permanently. I assured him it would be for short-term rehab and he is agreeable to a referral [facility]. Admission and Anticipated Discharge Date Admission Date: January 08, 2025 Subjective Patient more confused today. He initially cannot tell me where he is and then says "hospital." He does not remember having his MRI yesterday. He did receive Ativan and Benadryl yesterday which may be contributing. He still has somewhat of a headache today but no nausea at all and is tolerating his diet. He moved his bowels 3 times yesterday but today reports constipation. Physical Exam Constitutional: WD/WN, vitals as above Neck: trachea midline, no thyromegaly Respiratory: normal respiratory effort, lungs clear to auscultation Cardiovascular: RRR, no murmur, no edema Chest (Breasts): Chest: normal inspection of chest Gastrointestinal (Abdomen): normal bowel sounds, soft, nontender, no hepatosplenomegaly Musculoskeletal: Extremities: extremities normal to inspection; no cyanosis and no clubbing Skin: no rashes, warm and dry Neurologic: CN's II-XI intact bilaterally, moves all extremities and awake; no focal motor deficits Speech / Cognition: normal speech Motor/Sensory: no tremor Psychiatric: Orientation: alert, oriented to person, oriented to place and cooperative; + not oriented to time Lymphatic: no lymphedema Results & Data Results & Data Vital Signs (Past 12 Hours) Vital Signs Temp Pulse Resp BP Pulse Ox Pulse Ox O2 Del Method 01/09/25 15:30 37.1 C 87 18 123/85 93 Room Air 01/09/25 12:30 Room Air 01/09/25 11:58 36.8 C 93 H 18 133/78 93 Room Air 01/09/25 10:00 94 01/09/25 07:48 36.9 C 85 18 130/87 94 Room Air O2 Del Method 01/09/25 15:30 01/09/25 12:30 01/09/25 11:58 01/09/25 10:00 Room Air 01/09/25 07:48 Laboratory Results CBC, BMP, calcium level, Hgb A1c reviewed PG Care Time/CCT Total # of Minutes Spent Total Time Spent with Patient: Total time spent is greater than 50% in coordination of care (as documented) at patient's floor/unit and/or counseling patient: Coding Level of Care Code 92843 SUB INP/OBS CARE 3/50MIN Diagnoses Other headache syndrome G44.89 Headache type: other headache syndrome Nausea & vomiting R11.2 Primary hyperparathyroidism E21.0 Ambulatory dysfunction R26.2 (1) Headache Headache type: other headache syndrome Qualified Code(s): G44.89 - Other headache syndrome
[2025-01-09] MEDS: POLYETHYLENE (MIRALAX) 17 GM PACK PO SCH (17:26)
[2025-01-09] MEDS: DOCUSATE SODIUM 100 MG CAP PO SCH (20:22)
[2025-01-10 09:32] LABS: BUN Creatinine Ratio 13.3 (10-20); Calcium 9.5 mg/dl (8.6-10.3); Magnesium 1.9 mg/dl (1.7-2.4); Potassium 4.2 mmol/L (3.5-5.1)
[2025-01-10 09:39] LABS: Albumin Globulin Ratio 1.3 (0.9-2); Bilirubin,Total 0.5 mg/dl (0.2-1.0)
--- NOTE | 2025-01-10 16:33 | Hospitalist Progress Note ---
Date of Service January 10, 2025 Assessment & Plan (1) Headache: (2) Nausea & vomiting: (3) Primary hyperparathyroidism: (4) Ambulatory dysfunction: Plan This pt is a 79 yo male with a h/o primary hyperparathyroidism, TIA, vitamin D deficiency, DMII, HFpEF, thiamine deficiency, MCI, anxiety/depression, BPH, GERD, restrictive lung disease due to obesity, CKD stage III, HTN, RAMAN on 2 LNC at bedtime, provoked DVT, HLD, isolated monocytosis, peripheral neuropathy, and chronic headaches who presents to the ER with increasing frequency and severity of headaches with nausea/vomiting and difficulty with ambulation. #Headache/nausea/vomiting/ambulatory dysfunction-with 3 months of headache, now with increased frequency to 3 times a week- frontal/retro-orbital in nature associated with N/V, dizziness, and photophobia. He usually takes Tylenol or ibuprofen and lays in a dark room until they go away. He has been more off balance than baseline. He also has some chronic intermittent abdominal pain which has been worked up without etiology found. No new focal deficits. CT of the head was negative; workup for infection to include respiratory BioFire panel, UA, CBC normal and afebrile. CTA head and neck negative and, ESR modestly elevated at 42, CRP at 3 but does not seem significant for vasculitis. His ambulatory dysfunction has been ongoing and is likely related to peripheral neuropathy and general deconditioning. MRI brain with contrast is negative. Lyme titer negative. Neurology consult recommends treatment for migraines. Headaches likely caused by primary hyperparathyroidism-PTH progressively increasing over the last few months to 156, calcium level in normal range at 10.1. I discussed with endocrinology about starting Sensipar for primary hyperparathyroidism. Nausea and headache now completely resolved after 2 days on Sensipar. -continue Sensipar 30 mg p.o. daily -Continue Tylenol as needed for headache-will avoid Benadryl given ongoing confusion -Zofran or Compazine for nausea #Primary hyperparathyroidism-known diagnosis and follows with endocrinology-PTH elevated further to 156 on labs from 2 weeks prior, calcium within normal range at 10.1. With progressing headaches, vague abdominal pains, and mood disorder all consistent with symptoms of primary hyperparathyroidism-Started Sensipar 30 mg daily. Calcium level down to 9.5 -check calcium and PTH level in 1 week after discharge -f/u with Endocrine after discharge #Acute encephalopathy-patient with underlying mild cognitive impairment and developed hospital delirium 01/09, possibly toxic encephalopathy from receiving Ativan and Benadryl previously for claustrophobia with MRI and for migraines, respectively. Confusion now resolved on 01/10 -Supportive care, keep blinds open and keep him awake during the day -Avoid further Benadryl or Ativan #Constipation-patient did have 3 loose stools on 01/08 but now complaints of constipation, no BM since then -continue MiraLAX daily and docusate twice daily #History of TIA/MCI-with a h/o TIA and on Plavix, statin. MRI brain with contrast on 01/08 negative for new or old stroke. 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 Received IV fluids but now is tolerating regular diet -follow BMP -renally dose meds and avoid nephrotoxins #Restrictive lung disease due to obesity/RAMAN on 2L NC O2 at bedtime- no acute issues -continue 2LNC O2 hs #DM2/peripheral neuropathy-no acute issues, last A1C well controlled at 5.6% in 09/2024. He has lost a lot of weight since starting on Ozempic. HgbA1c remains normal at 5.4% -Continue Novolog SSI here at needed -continue Jardiance 3x/week #HTN/HLD/HFpEF-no acute issues -continue home BP meds, statin -no longer taking torsemide as leg swelling improved with large amount of weight loss #Anxiety/depression-recently started on Wellbutrin and sertraline for mood issues a few months ago. Could be related to primary hyperpara. -continue Wellbutrin, sertraline, and BuSpar #Thiamine deficiency/vitamin D and B12 deficiency-continue Vit D, B12, and thiamine replacement DVT prophylaxis-SCDs Disposition-continued stay on medical floor with telemetry, PT/OT consults recommend rehab-patient is wary that he will be placed in a shelter permanently. I assured him it would be for short-term rehab and he is agreeable to a referral [facility]. Placement pending, medically stable for discharge Admission and Anticipated Discharge Date Admission Date: January 08, 2025 Subjective Pt feeling much better today, no confusion at all. He asks me about my mom's upcoming surgery which I had told him about several days prior on admission. Denies headache-now resolved. No further nausea. Is feeling stronger and balance is better. Tele with NSR, PACs, rates 80-90s Physical Exam Constitutional: WD/WN, vitals as above Neck: trachea midline, no thyromegaly Respiratory: normal respiratory effort, lungs clear to auscultation Cardiovascular: RRR, no murmur, no edema Chest (Breasts): Chest: normal inspection of chest Gastrointestinal (Abdomen): normal bowel sounds, soft, nontender, no hepatosplenomegaly Musculoskeletal: Extremities: extremities normal to inspection; no cyanosis and no clubbing Skin: no rashes, warm and dry Neurologic: moves all extremities and awake; no focal motor deficits and not confused Speech / Cognition: normal speech Motor/Sensory: no tremor Psychiatric: A+Ox3, euthymic affect Orientation: cooperative Lymphatic: no lymphedema Results & Data Results & Data Vital Signs (Past 12 Hours) Vital Signs Temp Pulse Pulse Resp BP Pulse Ox Pulse Ox 01/10/25 15:41 36.7 C 77 20 139/85 93 01/10/25 14:08 83 01/10/25 11:31 36.7 C 85 20 132/81 96 01/10/25 10:34 01/10/25 10:00 94 01/10/25 07:41 36.9 C 79 18 126/80 95 01/10/25 07:10 78 O2 Del Method O2 Del Method 01/10/25 15:41 Room Air 01/10/25 14:08 01/10/25 11:31 Room Air 01/10/25 10:34 Room Air 01/10/25 10:00 Room Air 01/10/25 07:41 Room Air 01/10/25 07:10 Laboratory Results CMP, magnesium reviewed PG Care Time/CCT Total # of Minutes Spent Total Time Spent with Patient: Total time spent is greater than 50% in coordination of care (as documented) at patient's floor/unit and/or counseling patient: Coding Level of Care Code 84385 SUB INP/OBS CARE 2/35MIN Diagnoses Other headache syndrome G44.89 Headache type: other headache syndrome Nausea & vomiting R11.2 Primary hyperparathyroidism E21.0 Ambulatory dysfunction R26.2 (1) Headache Headache type: other headache syndrome Qualified Code(s): G44.89 - Other headache syndrome
[2025-01-11 06:33] LABS: BUN Creatinine Ratio 15.3 (10-20); Calcium 9.6 mg/dl (8.6-10.3); Creatinine Clr Calc Pharmacy 65.1 ml/min; Potassium 4.1 mmol/L (3.5-5.1)
[2025-01-11] MEDS: ACETAMINOPHEN 325 MG TAB PO PRN (15:41)
--- NOTE | 2025-01-11 15:50 | Hospitalist Progress Note ---
Date of Service January 11, 2025 Assessment & Plan (1) Headache: (2) Nausea & vomiting: (3) Primary hyperparathyroidism: (4) Ambulatory dysfunction: Plan This pt is a 79 yo male with a h/o primary hyperparathyroidism, TIA, vitamin D deficiency, DMII, HFpEF, thiamine deficiency, MCI, anxiety/depression, BPH, GERD, restrictive lung disease due to obesity, CKD stage III, HTN, RAMAN on 2 LNC at bedtime, provoked DVT, HLD, isolated monocytosis, peripheral neuropathy, and chronic headaches who presents to the ER with increasing frequency and severity of headaches with nausea/vomiting and difficulty with ambulation. #Headache/nausea/vomiting/ambulatory dysfunction-with 3 months of headache, now with increased frequency to 3 times a week- frontal/retro-orbital in nature associated with N/V, dizziness, and photophobia. He usually takes Tylenol or ibuprofen and lays in a dark room until they go away. He has been more off balance than baseline. He also has some chronic intermittent abdominal pain which has been worked up without etiology found. No new focal deficits. CT of the head was negative; workup for infection to include respiratory BioFire panel, UA, CBC normal and afebrile. CTA head and neck negative and, ESR modestly elevated at 42, CRP at 3 but does not seem significant for vasculitis. His ambulatory dysfunction has been ongoing and is likely related to peripheral neuropathy and general deconditioning. MRI brain with contrast is negative. Lyme titer negative. Neurology consult recommends treatment for migraines. Headaches likely caused by primary hyperparathyroidism-PTH progressively increasing over the last few months to 156, calcium level in normal range at 10.1. I discussed with Endocrinology Dr. Wan about starting Sensipar for primary hyperparathyroidism. Nausea and headache were completely resolved after 2 days on Sensipar, now only mild reutrn on 01/11 -continue Sensipar 30 mg p.o. daily -Continue Tylenol as needed for headache-will avoid Benadryl given ongoing confusion -Zofran or Compazine for nausea -awaiting rehab placement #Primary hyperparathyroidism-known diagnosis and follows with endocrinology-PTH elevated further to 156 on labs from 2 weeks prior, calcium within normal range at 10.1. With progressing headaches, vague abdominal pains, and mood disorder all consistent with symptoms of primary hyperparathyroidism-Started Sensipar 30 mg daily. Calcium level down to 9.6 -check calcium and PTH level in 1 week after starting Sensipar -f/u with Endocrine after discharge #Acute encephalopathy-patient with underlying mild cognitive impairment and developed hospital delirium 01/09, possibly toxic encephalopathy from receiving Ativan and Benadryl previously for claustrophobia with MRI and for migraines, respectively. Confusion now resolved on 01/10, with some waxing and waning of very mild confusion on 01/11. Could also be related to constipation and hospital delirium -Supportive care, keep blinds open and keep him awake during the day -Avoid further Benadryl or Ativan -treating constipation #Constipation-patient did have 3 loose stools on 01/08 but now no BM since then -continue MiraLAX daily and docusate twice daily -add prune juice and senna hs #History of TIA/MCI-with a h/o TIA and on Plavix, statin. MRI brain with contrast on 01/08 negative for new or old stroke. 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 Received IV fluids but now is tolerating regular diet -follow BMP periodically -renally dose meds and avoid nephrotoxins #Restrictive lung disease due to obesity/RAMAN on 2L [place] O2 at bedtime- no acute issues -continue 2LNC O2 hs #DM2/peripheral neuropathy-no acute issues, last A1C well controlled at 5.6% in 09/2024. He has lost a lot of weight since starting on Ozempic. HgbA1c remains normal at 5.4% -Continue Novolog SSI here at needed -continue Jardiance -resume Ozempic on discharge #HTN/HLD/HFpEF-no acute issues -continue home metoprolol, statin -no longer taking torsemide as leg swelling improved with large amount of weight loss #Anxiety/depression-recently started on Wellbutrin and sertraline for mood issues a few months ago. Could be related to primary hyperpara. -continue Wellbutrin, sertraline, and BuSpar #Thiamine deficiency/vitamin D and B12 deficiency-continue Vit D, B12, and thiamine replacement #GERD-no acute issues -continue Pepcid, PPI DVT prophylaxis-SCDs Disposition-continued stay but can downgrade off tele. PT/OT consults recommend rehab-patient is wary that he will be placed in a skilled nursing permanently. I assured him it would be for short-term rehab and he is agreeable to a referral to [facility]. Placement pending, medically stable for discharge-likely won't be until at least Monday as awaiting bed and insurance auth Discussed care w/ at bedside again on 01/11 Admission and Anticipated Discharge Date Admission Date: January 08, 2025 Subjective Pt reports he is walking in the halls with his walker and CGA but still feels off balance. Has a mild headache today at 3/10 in severity, no nausea, is eating. Still no BM now in 3 days. Asks me on three separate occasions "you gave me that new pill, right?" Tele with NSR, rates 80s, a few small runs PAT Physical Exam Constitutional: WD/WN, vitals as above Respiratory: normal respiratory effort, lungs clear to auscultation Cardiovascular: RRR, no murmur, no edema Chest (Breasts): Chest: normal inspection of chest Gastrointestinal (Abdomen): normal bowel sounds, soft, nontender, no hepatosplenomegaly Musculoskeletal: Extremities: extremities normal to inspection; no cyanosis and no clubbing Skin: no rashes, warm and dry Neurologic: moves all extremities and awake; no focal motor deficits Speech / Cognition: normal speech Motor/Sensory: no tremor Psychiatric: Orientation: alert and cooperative Results & Data Results & Data Vital Signs (Past 12 Hours) Vital Signs Temp Pulse Pulse Resp BP BP Pulse Ox 01/11/25 15:28 36.7 C 74 20 127/77 96 01/11/25 12:12 81 01/11/25 11:38 36.7 C 78 18 113/74 92 01/11/25 08:11 37.1 C 62 20 116/71 94 01/11/25 07:54 01/11/25 03:46 36.8 C 77 20 123/77 95 O2 Del Method 01/11/25 15:28 Room Air 01/11/25 12:12 01/11/25 11:38 Room Air 01/11/25 08:11 Room Air 01/11/25 07:54 Room Air 01/11/25 03:46 Room Air Laboratory Results BMP, calcium level reviewed PG Care Time/CCT Total # of Minutes Spent Total Time Spent with Patient: Total time spent is greater than 50% in coordination of care (as documented) at patient's floor/unit and/or counseling patient: Coding Level of Care Code 04719 SUB INP/OBS CARE 350MIN Diagnoses Other headache syndrome G44.89 Headache type: other headache syndrome Nausea & vomiting R11.2 Primary hyperparathyroidism E21.0 Ambulatory dysfunction R26.2 (1) Headache Headache type: other headache syndrome Qualified Code(s): G44.89 - Other headache syndrome
[2025-01-11] MEDS: SENNA 8.6 MG TAB PO SCH (20:33)
[2025-01-12 06:59] LABS: BUN Creatinine Ratio 15.6 (10-20); Calcium 9.2 mg/dl (8.6-10.3); Creatinine Clr Calc Pharmacy 63.1 ml/min
--- NOTE | 2025-01-12 15:02 | Hospitalist Progress Note ---
Date of Service January 12, 2025 Assessment & Plan (1) Headache: (2) Nausea & vomiting: (3) Primary hyperparathyroidism: (4) Ambulatory dysfunction: Plan This pt is a 79 yo male with a h/o primary hyperparathyroidism, TIA, vitamin D deficiency, DMII, HFpEF, thiamine deficiency, MCI, anxiety/depression, BPH, GERD, restrictive lung disease due to obesity, CKD stage III, HTN, RAMAN on 2 LNC at bedtime, provoked DVT, HLD, isolated monocytosis, peripheral neuropathy, and chronic headaches who presents to the ER with increasing frequency and severity of headaches with nausea/vomiting and difficulty with ambulation secondary to primary hyperparathyroidism. #Headache/nausea/vomiting/ambulatory dysfunction-with 3 months of headache, increasing in frequency to 3 times a week- frontal/retro-orbital in nature associated with N/V, dizziness, and photophobia. He usually takes Tylenol or ibuprofen and lays in a dark room until they go away. He has been more off balance than baseline. He also has some chronic intermittent abdominal pain which has been worked up without etiology found. No new focal deficits. CT of the head was negative; workup for infection to include respiratory BioFire panel, UA, CBC normal and afebrile. CTA head and neck negative and, ESR modestly elevated at 42, CRP at 3 but does not seem significant enough for vasculitis. His ambulatory dysfunction has been ongoing and is likely related to peripheral neuropathy and general deconditioning. MRI brain with contrast is negative. Lyme titer negative. Neurology consult recommends treatment for migraines. Headaches and all symptoms likely caused by primary hyperparathyroidism-PTH progressively increasing over the last few months to 156, calcium level in normal range at 10.1. I discussed with Endocrinology Dr. Wan about starting Sensipar for primary hyperparathyroidism. Nausea and headache now completely resolved after starting on Sensipar -continue Sensipar 30 mg p.o. daily -Continue Tylenol as needed for headache -Zofran or Compazine for nausea -awaiting rehab placement #Primary hyperparathyroidism-known diagnosis and follows with endocrinology-PTH elevated further to 156 on labs from 2 weeks prior, calcium within normal range at 10.1. With progressing headaches, vague abdominal pains, and mood disorder all consistent with symptoms of primary hyperparathyroidism -Started Sensipar 30 mg daily. Calcium level down to 9.2 -check calcium and PTH level in 1 week after starting Sensipar -f/u with Endocrine after discharge #Acute encephalopathy-patient with underlying mild cognitive impairment and developed hospital delirium 01/09, possibly toxic encephalopathy from receiving Ativan and Benadryl previously for claustrophobia with MRI and for migraines, respectively. Confusion now resolved -Supportive care, keep blinds open and keep him awake during the day -continue treating constipation #Constipation-patient did have 3 loose stools on 01/08 and then one stool 01/10 -continue MiraLAX daily and docusate twice daily, senna hs #History of TIA/MCI-with a h/o TIA and on Plavix, statin. MRI brain with contrast on 01/08 negative for new or old stroke. 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 Received IV fluids but now is tolerating regular diet -follow BMP periodically -renally dose meds and avoid nephrotoxins #Restrictive lung disease due to obesity/RAMAN on 2L NC O2 at bedtime- no acute issues -continue 2LNC O2 hs #DM2/peripheral neuropathy-no acute issues, last A1C well controlled at 5.6% in 09/2024. He has lost a lot of weight since starting on Ozempic. HgbA1c remains normal at 5.4% -Continue Novolog SSI here at needed -continue Jardiance -resume Ozempic on discharge #HTN/HLD/HFpEF-no acute issues -continue home metoprolol, statin -no longer taking torsemide as leg swelling improved with large amount of weight loss #Anxiety/depression-recently started on Wellbutrin and sertraline for mood issues a few months ago. Could be related to primary hyperpara. -continue Wellbutrin, sertraline, and BuSpar #Thiamine deficiency/vitamin D and B12 deficiency-continue Vit D, B12, and thiamine replacement #GERD-no acute issues -continue Pepcid, PPI DVT prophylaxis-SCDs Disposition-medically stable for discharge, awaiting SNF placement at [facility]-awaiting bed availability and insurance auth. Discussed care w/ at bedside again on 01/12 Admission and Anticipated Discharge Date Admission Date: January 08, 2025 Subjective Feeling very well today. Headache now completely resolved, no nausea. No BM in 2 days. Still has some imbalance with walking but is improving, walking halls with walker and assistance. Physical Exam Constitutional: WD/WN, vitals as above Neck: trachea midline, no thyromegaly Respiratory: normal respiratory effort, lungs clear to auscultation Cardiovascular: RRR, no murmur, no edema Chest (Breasts): Chest: normal inspection of chest Musculoskeletal: Extremities: extremities normal to inspection; no cyanosis and no clubbing Skin: no rashes, warm and dry Neurologic: moves all extremities and awake; no focal motor deficits and not confused Speech / Cognition: normal speech Motor/Sensory: no tremor Psychiatric: A+Ox3, euthymic affect Orientation: cooperative Results & Data Results & Data Vital Signs (Past 12 Hours) Vital Signs Temp Pulse Resp BP Pulse Ox O2 Del Method 01/12/25 07:47 36.9 C 89 18 129/84 96 Room Air 01/12/25 07:10 Room Air Laboratory Results BMP, calcium level reviewed PG Care Time/CCT Total # of Minutes Spent Total Time Spent with Patient: Total time spent is greater than 50% in coordination of care (as documented) at patient's floor/unit and/or counseling patient: Coding Level of Care Code 06319 SUB INP/OBS CARE 2/35MIN Diagnoses Other headache syndrome G44.89 Headache type: other headache syndrome Nausea & vomiting R11.2 Primary hyperparathyroidism E21.0 Ambulatory dysfunction R26.2 (1) Headache Headache type: other headache syndrome Qualified Code(s): G44.89 - Other headache syndrome
[2025-01-12 23:50] VITALS: PULSE 98
[2025-01-13 07:57] VITALS: BP 152/92; RESP 18; TEMP 97.9; O2SAT 96
[2025-01-13] MEDS: METOPROLOL SUCC 25MG EXT REL TAB PO STA (10:14)
--- NOTE | 2025-01-13 12:12 | Discharge Summary ---
Discharge Summary Date of Service January 13, 2025 Principal Dx & Hospital Course #1 = Principal Diagnosis (1) Headache: Now resolved. Sed rate is elevated and has been even higher in the past. PCP can consider further evaluation for giant cell arteritis or a trial of oral prednisone therapy. Brain MRI scan is unremarkable. (2) Nausea & vomiting: Present on admission. Now resolved (3) Primary hyperparathyroidism: Cincalcet therapy was started this admission and calcium levels are acceptable. (4) Ambulatory dysfunction: Improved. Continue OT and PT at discharge (5) Type 2 diabetes mellitus: ADA diet. Sliding scale coverage while hospitalized. Continue current medical management (6) Hypertension: Metoprolol dosage uptitrated from 25 to 50 mg daily for better heart rate and blood pressure control Plan Home today, January 13, on Cincalcet and higher dose metoprolol. ESR is elevated and has been higher in the past. PCP should consider ruling out temporal arteritis or considering a trial of oral prednisone therapy Admission HPI Per Admitting Provider This pt is a 79 yo male with a h/o primary hyperparathyroidism, TIA, vitamin D deficiency, DMII, HFpEF, thiamine deficiency, MCI, anxiety/depression, BPH, GERD, restrictive lung disease due to obesity, CKD stage III, HTN, RAMAN on 2 LNC at bedtime, provoked DVT, HLD, isolated monocytosis, peripheral neuropathy, and chronic headaches who presents to the ER with increasing frequency and severity of his headaches and increasing mild confusion. He has been now having headaches 3 times a week that are frontal/retro-orbital in nature associated with nausea/vomiting and some dizziness and photophobia. Headache started about 3 months ago and are increasing in frequency and severity. He usually takes Tylenol or ibuprofen and lays in a dark room until they go away. He has been more off balance than baseline. He also has some chronic intermittent abdominal pain which has been worked up without etiology found. No new focal deficits today. CT of the head was negative in the ER as well as workup for infection to include respiratory [employer] panel. He was given IV Tylenol, IV magnesium, IV fluids, IV Zofran, and 1 dose of IV Depakote. He took an NSAID at home prior to arrival. He had no relief of his headache and nausea. Neurology was contacted by the ED physician who recommended a CTA head and neck, ESR, CRP, and recom mended admission for further neurological evaluation and treatment. Discharge Plan Discharge Items Patient Disposition: Home - Home Health Services Reason For Visit: INTRACTABLE HEADACHE Discharge Diagnosis: Intractable headache, ataxia Activity: Resume your previous activity Non-emergency contact: Primary Care Provider Call non-emergency contact if: your symptoms worsen Follow-up/Referrals: Melissa Frazier MD [Primary Care Provider] - Diet: Carb Consistent or DM2 and Heart Healthy Addtl Attending Provider Instructions: Cincalcet is a new medication to keep calcium levels under control. Metoprolol dosage has been increased. Prescriptions have been sent to your pharmacy. ESR level is elevated and PCP can consider further testing to rule out temporal arteritis (giant cell arteritis) or possibly a trial of oral prednisone therapy. Pending Studies at Discharge: No Stand-Alone Forms: My [employer], Smoking Cessation Medications and DC Order Prescriptions: New cinacalcet 30 mg Tablet 30 mg PO QAM Qty: 30 0RF metoprolol succinate 50 mg Tablet Extended Release 24 Hr 50 mg PO QAM Qty: 30 0RF docusate sodium 100 mg Capsule 100 mg PO BID Qty: 0 0RF polyethylene glycol 3350 [Miralax] 17 gram Powder In Packet 17 g PO DAILY Qty: 0 0RF Continued (DME) pen needle, diabetic [BD Ultra-Fine Short Pen Needle] 31 gauge x 5/16" needle See Rx Instructions .Route Qty: 200 3RF Rx Instructions: Use with insulin pen twice daily Dx:E11.9 famotidine 40 mg tablet 40 mg PO PM Qty: 90 3RF pantoprazole 40 mg tablet,delayed release (DR/EC) 40 mg PO QAM Qty: 90 3RF Ozempic 2 mg/dose (8 mg/3 mL) pen injector 2 mg subcut WK Qty: 3 5RF Rx Instructions: Monday (DME) 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 See Rx Instructions .Route Qty: 1 3RF Rx Instructions: As directed (DME) Dexcom G6 Sensor Device See Rx Instructions .Route Qty: 3 3RF Rx Instructions: As directed (DME) Dexcom G6 Transmitter Device See Rx Instructions .Route Qty: 1 3RF Rx Instructions: As directed clopidogrel 75 mg tablet 75 mg PO QAM Qty: 30 3RF (DME) Oxygen Home Liters Per Minute See Rx Instructions .Route Qty: 1 0RF Rx Instructions: As directed (DME) Shower Chair Misc See Rx Instructions .Route Qty: 1 0RF Rx Instructions: Shower transfer bench-G62.9 ([facility] [place] FreeStyle Shlomo 2 [place] Misc See Rx Instructions .Route Qty: 1 0RF Rx Instructions: As directed to check blood sugar (scan at least every 8 hours) ([facility] [place] FreeStyle Shlomo 2 Sensor Kit See Rx Instructions .ROUTE .COMPLEX Qty: 2 5RF Dose Instruction: DIRECTED TO CHECK BLOOD SUGARS CONTINUOUSLY (REPLACE EVERY 14 DAYS) Rx Instructions: DIRECTED TO CHECK BLOOD SUGARS CONTINUOUSLY (REPLACE EVERY 14 DAYS) bupropion HCl [Wellbutrin SR] 100 mg tablet sustained-release 12 hr 100 mg PO BID Qty: 30 5RF Rx Instructions: Do not take afternoon dose after 5 PM. Jardiance 10 mg tablet 10 mg PO QAM Qty: 30 0RF ondansetron 4 mg tablet,disintegrating 4 - 8 mg PO Q6H PRN (Reason: nausea and vomiting) Qty: 20 0RF cholecalciferol (vitamin D3) [Vitamin D3] 25 mcg (1,000 unit) Capsule 75 mcg PO DAILY nystatin 100,000 unit/gram powder 1 applic topical BID PRN (Reason: Skin Irritation) diclofenac sodium [Voltaren Arthritis Pain] 1 % gel 4 g topical QID PRN (Reason: Pain) Hold Instructions: hosp wrote "no" on med list torsemide 100 mg tablet 50 mg PO QAM PRN (Reason: Weight gain or leg swelling) Qty: 15 0RF Hold Instructions: hospital wrote "no' on dc list atorvastatin 80 mg tablet 80 mg PO QAM Hold Instructions: "no" cyanocobalamin (vitamin B-12) 1,000 mcg tablet 1,000 mcg PO QAM Rx Instructions: take for 6 months. Purchase [id number]. sertraline 100 mg tablet 200 mg PO QAM thiamine HCl (vitamin B1) 100 mg Tablet 100 mg PO QAM Qty: 0 0RF Rx Instructions: Buy over the counter. Continue indefinitely. Discontinued metoprolol succinate 25 mg tablet extended release 24 hr 25 mg PO QAM Rx Instructions: for high blood pressure Discharge Orders: Discharge Order (Routine); Ordered 01/13/25 Ordered By: Gentry Kaufman Admission Data Admit Date/Time: 01/08/25 08:02 Attending Provider: Gentry Kaufman Admit Provider: Deb Riddle Primary Care Provider: Melissa Frazier Other Providers: Deb Riddle; Devonte Mcmahon; [facility]; [facility]; [facility] Hospital Stay Data Consultations 01/08/25 07:14 ED Decision to Admit Stat 01/08/25 07:19 Consult Neurology Routine Diagnostic Imagining Performed 01/08/25 02:01 CT head/brain wo con Stat 01/08/25 06:54 CT angio head w con Stat CT angio neck with con Stat 01/08/25 08:04 MRI Brain [MR brain wo/w con] Stat Pending Results Patient Have Any Pending Studies at Discharge: No Discharge Instructions Given to Patient (Per Discharging Provider) Cincalcet is a new medication to keep calcium levels under control. Metoprolol dosage has been increased. Prescriptions have been sent to your pharmacy. ESR level is elevated and PCP can consider further testing to rule out temporal arteritis (giant cell arteritis) or possibly a trial of oral prednisone therapy. Total Time Total Time Spent Total Time Spent (In Minutes): 45 minutes Coding Level of Care Code 76630 INP/OBS DISCH >30 MIN Diagnoses Other headache syndrome G44.89 Headache type: other headache syndrome Nausea & vomiting R11.2 Primary hyperparathyroidism E21.0 Ambulatory dysfunction R26.2 Type 2 diabetes mellitus E11.9 Hypertension, unspecified type I10 Hypertension type: unspecified
[2025-01-14] MEDS ORDERED: METOPROLOL SUCC 50MG EXT REL TAB PO SCH (09:00)
== END 2025-01-13 14:30 | disposition home health service (06) | DRG 643 ==
LOC: SUATTDRO → ED 01:13 → EDINP 08:02 → SUATTDRO 08:02 → EDINP 09:54 → 2W 12:21